=== PATIENT | female | born 1945 ===

== ENCOUNTER 2017-02-04 10:46 | Inpatient (IN) | payer OTHER, MEDICARE ==
[2017-02-04] VITALS (12 sets, daily range): BP systolic 129–231; BP diastolic 66–120; PULSE 85–129; RESP 32–40; TEMP 98.2–99.3; O2SAT 80–100
[~2017-02-04] VITALS: Ht 147.3 cm; Wt 55.1 kg
[2017-02-04] MEDS ORDERED: SODIUM CHLORIDE 0.9% FLUSH 10 ML FLUSH IVF PRN (11:00)
[2017-02-04] MEDS ORDERED: FUROSEMIDE 40 MG/4 ML VIAL IV PUSH ONE (11:00)
--- NOTE | 2017-02-04 11:08 | PD ---
HPI Chief Complaint: Respiratory Distress Time Seen by Provider: 10:52 Travel History International Travel<30 days: No Contact w/Intl Traveler<30days: No Traveled to known affect area: No History of Present Illness HPI 71-year-old female longterm patient with multiple medical issues, presents to the ER today brought in by EMS after staff found her slumped over, with cyanosis of the limbs, in respiratory distress. EMS had placed nonrebreather on her and was only able to get her os nation into the 80s, states that they have noted leg edema, and have brought her in for further evaluation. Patient currently is in respiratory distress, states she feels a little bit better, but is not able to give me much further history. Modifying Factors: None Associated Signs & Symptoms: Hypoxia, respiratory distress, disorientation Risk Factors: Elderly, longterm patient PFSH Past Medical History ?: Not Social History Tobacco Use: No Allergies-Medications (Allergen,Severity, Reaction): Coded Allergies: Penicillins (Verified Allergy, Unknown, 02/04/17) Review of Systems ROS Limitations: Altered Mental Status Physical Exam Narrative GENERAL: Well-developed elderly white female patient currently and moderate respiratory distress, awake, lethargic, disoriented. SKIN: Focused skin assessment warm/dry. HEAD: Atraumatic. Normocephalic. EYES: Pupils equal and round. No scleral icterus. No injection or drainage. ENT: No nasal bleeding or discharge. Mucous membranes pink and moist. NECK: Trachea midline. No JVD. CARDIOVASCULAR: Regular rate and rhythm. No murmur appreciated. RESPIRATORY: Notable accessory muscle use. Coarse at the bases. Breath sounds equal bilaterally. GASTROINTESTINAL: Abdomen soft, non-tender, nondistended. Hepatic and splenic margins not palpable. MUSCULOSKELETAL: No obvious deformities. No clubbing. No cyanosis. Bilateral pitting edema the legs. NEUROLOGICAL: Awake and lethargic. No obvious cranial nerve deficits. Motor grossly within normal limits. Labored speech. PSYCHIATRIC: Lethargic, disoriented; insight and judgment poor. Data Data Last Documented VS Vital Signs Date Time Temp Pulse Resp B/P (MAP) Pulse Ox O2 Delivery O2 Flow Rate FiO2 02/04/17 11:53 107 36 176/96 (122) 95 BiPAP 02/04/17 10:55 100 Orders Orders Complete Blood Count With Diff (02/04/17 10:52) Comprehensive Metabolic Panel (02/04/17 10:52) B-Type Natriuretic Peptide (02/04/17 10:52) Act Partial Throm Time (Ptt) (02/04/17 10:52) Prothrombin Time / Inr (Pt) (02/04/17 10:52) Magnesium (Mg) (02/04/17 10:52) Ckmb (Isoenzyme) Profile (02/04/17 10:52) Troponin I (02/04/17 10:52) Urinalysis - C+S If Indicated (02/04/17 10:52) Blood Culture (02/04/17 10:52) Iv Access Insert/Monitor (02/04/17 10:52) Electrocardiogram (02/04/17 10:52) Ecg Monitoring (02/04/17 10:52) Oximetry (02/04/17 10:52) Oxygen Administration (02/04/17 10:52) Chest, Single Ap (02/04/17 10:52) Cath For Specimen (02/04/17 10:52) Sodium Chloride 0.9% Flush (Ns Flush) (02/04/17 11:00) Resp Bipap / Cpap Non Invas Vt (02/04/17 10:52) Furosemide Inj (Lasix Inj) (02/04/17 11:00) Arterial Blood Gas (Abg) (02/04/17 11:09) Nitroglycerin 2% Oint (Nitroglycerin 2% (02/04/17 11:45) Admit Order (Ed Use Only) (02/04/17 12:56) Sodium Chlor 0.9% 1000 Ml Inj (Ns 1000 M (02/04/17 13:00) Lactic Acid Sepsis Protocol (02/04/17 12:59) Cefepime Inj (Maxipime Inj) (02/04/17 12:59) Azithromycin Inj (Zithromax Inj) (02/04/17 12:59) Labs Laboratory Tests Test 02/04/17 11:35 02/04/17 12:40 White Blood Count 5.4 TH/MM3 Red Blood Count 3.62 MIL/MM3 Hemoglobin 10.8 GM/DL Hematocrit 30.7 % Mean Corpuscular Volume 84.8 FL Mean Corpuscular Hemoglobin 29.8 PG Mean Corpuscular Hemoglobin Concent 35.2 % Red Cell Distribution Width 15.5 % Platelet Count 248 TH/MM3 Mean Platelet Volume 6.5 FL Neutrophils (%) (Auto) 91.3 % Lymphocytes (%) (Auto) 3.3 % Monocytes (%) (Auto) 5.1 % Eosinophils (%) (Auto) 0.1 % Basophils (%) (Auto) 0.2 % Neutrophils # (Auto) 5.0 TH/MM3 Lymphocytes # (Auto) 0.2 TH/MM3 Monocytes # (Auto) 0.3 TH/MM3 Eosinophils # (Auto) 0.0 TH/MM3 Basophils # (Auto) 0.0 TH/MM3 CBC Comment DIFF FINAL Differential Comment Prothrombin Time 12.0 SEC Prothromb Time International Ratio 1.2 RATIO Activated Partial Thromboplast Time 28.8 SEC Blood Gas Puncture Site RT RADIAL Blood Gas Patient Temperature 37.0 Blood Gas HCO3 28 mmol/L Blood Gas Base Excess 3.0 mmol/L Blood Gas Oxygen Saturation 95 % Arterial Blood pH 7.39 Arterial Blood Partial Pressure CO2 46 mmHg Arterial Blood Partial Pressure O2 90 mmHG Arterial Blood Oxygen Content 15.0 Vol % Arterial Blood Carboxyhemoglobin 1.4 % Arterial Blood Methemoglobin 0.3 % Blood Gas Hemoglobin 11.2 G/DL Oxygen Delivery Device BIPAP Blood Gas Ventilator Setting EPAP5/IPAP10 Blood Gas Inspired Oxygen 100 % Blood Urea Nitrogen 12 MG/DL Creatinine 0.54 MG/DL Random Glucose 182 MG/DL Total Protein 6.7 GM/DL Albumin 3.0 GM/DL Calcium Level 9.0 MG/DL Magnesium Level 1.4 MG/DL Alkaline Phosphatase 88 U/L Aspartate Amino Transf (AST/SGOT) 17 U/L Alanine Aminotransferase (ALT/SGPT) 17 U/L Total Bilirubin 1.6 MG/DL Sodium Level 118 MEQ/L Potassium Level 3.8 MEQ/L Chloride Level 81 MEQ/L Carbon Dioxide Level 25.2 MEQ/L Anion Gap 12 MEQ/L Estimat Glomerular Filtration Rate 111 ML/MIN Total Creatine Kinase 71 U/L Troponin I LESS THAN 0.02 NG/ML B-Type Natriuretic Peptide 82 PG/ML MDM Medical Decision Making Medical Screen Exam Complete: Yes Emergency Medical Condition: Yes Medical Record Reviewed: Yes Interpretation(s) EKG shows sinus tachycardia rate 114 bpm with no signs of acute ST-T changes. Laboratory Tests Test 02/04/17 11:35 02/04/17 12:40 Red Blood Count 3.62 MIL/MM3 (4.00-5.30) Hemoglobin 10.8 GM/DL (11.6-15.3) Hematocrit 30.7 % (35.0-46.0) Mean Platelet Volume 6.5 FL (7.0-11.0) Neutrophils (%) (Auto) 91.3 % (16.0-70.0) Lymphocytes (%) (Auto) 3.3 % (9.0-44.0) Lymphocytes # (Auto) 0.2 TH/MM3 (1.0-4.8) Prothrombin Time 12.0 SEC (9.8-11.6) Blood Gas HCO3 28 mmol/L (22-26) Blood Gas Base Excess 3.0 mmol/L (-2-2) Arterial Blood Partial Pressure CO2 46 mmHg (38-42) Blood Gas Hemoglobin 11.2 G/DL (12.0-16.0) Random Glucose 182 MG/DL (74-106) Albumin 3.0 GM/DL (3.4-5.0) Magnesium Level 1.4 MG/DL (1.5-2.5) Total Bilirubin 1.6 MG/DL (0.2-1.0) Sodium Level 118 MEQ/L (136-145) Chloride Level 81 MEQ/L (98-107) Troponin I LESS THAN 0.02 NG/ML Last 24 hours Impressions Chest X-Ray 02/04/17 1052 Signed Impressions: Service Date/Time: Saturday, February 04, 2017 11:14 - CONCLUSION: 1. Airspace infiltrate in the medial right base characteristic of a pneumonic process. This probably explains current clinical symptoms. 2. Some blunting of the left costophrenic angle may represent a small effusion. Left lung is otherwise clear. Nura Cook MD Differential Diagnosis Hypoxia, disoriented, respiratory distress: CHF exacerbation versus pneumonia versus COPD exacerbation versus dehydration versus metabolic issues versus sepsis Narrative Course Initial exam is concerning for either CHF exacerbation hypertensive urgency was fairly elevated blood pressures, leg swelling, and coarse breath sounds at the bases. IV Lasix and nitroglycerin was given initially. She was put on BiPAP. On reevaluation half an hour later, she is looking improved, satting in the high 90s, able to nod to answer questions. Her daughter who is power of state attorney is at bedside. I have talked her extensively regarding initial findings and the need for admission for further evaluation. Additional lab work returns showing BNP which is normal, sodium which is fairly low at 118. Chest x-ray is also showing a right sided pneumonia. IV antibiotic's were initiated after cultures were drawn. Case was then discussed with dial refinisher who agrees to admit the patient to ICU for further treatment. We have agreed that the patient will need a slow rate of normal saline at this time , has history of CHF as well. He agrees that he will see the patient to evaluate for further treatment. Aggregate critical care time was 35 minutes. Time to perform other separately billable procedures was not included in the critical care time. My time did not include minutes spent treating any other patients simultaneously or on activities that did not directly contribute to the patient's treatment. The services I provided to this patient were to treat and/or prevent clinically significant deterioration that could result in: Worsening sepsis, septic shock, respiratory failure, I provided critical care services requiring my management, as noted below: Chart data review, documentation time, medication orders and management, vital sign assessments/reviewing monitor data, ordering and reviewing lab tests, ordering and interpreting/reviewing x-rays and diagnostic studies, care of the patient and discussion of the patient with the admitting physicians. Diagnosis Primary Impression: Hypoxia Additional Impressions: Pneumonia Sepsis Hyponatremia Admitting Information Admitting Physician Requests: Suzie Dao MD Feb 04, 2017 11:08
[2017-02-04] MEDS ORDERED: NITROGLYCERIN 2% OINT 1 GM PACKET TOPICAL ONE (11:45)
--- NOTE | 2017-02-04 11:55 | RADRPT ---
EXAM DATE/TIME: 02/04/2017 11:14 [facility] COMPARISON: No previous studies available for comparison. INDICATIONS : Short of breath. MEDICAL HISTORY : Hypertension. SURGICAL HISTORY : None. ENCOUNTER: Initial ACUITY: 1 day PAIN SCORE: 0/10 LOCATION: Bilateral chest FINDINGS: A single view of the chest demonstrates airspace infiltrates in the right medial base. Possible small left-sided effusion but the left lung is otherwise clear. Heart size is normal. S-shaped scoliosis o f the thoracolumbar spine. Osseous structures are otherwise intact CONCLUSION: 1. Airspace infiltrate in the medial right base characteristic of a pneumonic process. This probably explains current clinical symptoms. 2. Some blunting of the left costophrenic angle may represent a small effusion. Left lung is otherwis e clear. Nura Cook MD on February 04, 2017 at 11:52 Board Certified Radiologist. This report was verified electronically.
[2017-02-04 12:13] LABS: BASOPHIL % 0.2 % (0.0-2.0); EOSINOPHIL % 0.1 % (0.0-4.0); HEMATOCRIT 30.7 % (35.0-46.0); HEMOGLOBIN 10.8 GM/DL (11.6-15.3); LYMPH % 3.3 % (9.0-44.0); LYMPHOCYTE # 0.2 TH/MM3 (1.0-4.8); MEAN CELL VOLUME 84.8 FL (80.0-100.0); MEAN CORPUSCULAR HEMOGLOBIN 29.8 PG (27.0-34.0); MEAN CORPUSCULAR HGB CONC 35.2 % (32.0-36.0); MEAN PLATELET VOLUME 6.5 FL (7.0-11.0); MONO % 5.1 % (0.0-8.0); MONOCYTE # 0.3 TH/MM3 (0-0.9); NEUT % 91.3 % (16.0-70.0); PLATELET COUNT 248 TH/MM3 (150-450); RED BLOOD COUNT 3.62 MIL/MM3 (4.00-5.30); RED CELL DISTRIBUTION WIDTH 15.5 % (11.6-17.2); WHITE BLOOD COUNT 5.4 TH/MM3 (4.0-11.0)
[2017-02-04 12:23] LABS: INTERNATIONAL NORMALIZED RATIO 1.2 RATIO
[2017-02-04 12:37] LABS: ALT (GPT) 17 U/L (10-53); AST (GOT) 17 U/L (15-37); BICARBONATE 25.2 MEQ/L (21.0-32.0); CHLORIDE 81 MEQ/L (98-107); CREATININE 0.54 MG/DL (0.50-1.00); GLOMERULAR FILTRATION RATE 111 ML/MIN (>89); GLUCOSE,RANDOM 182 MG/DL (74-106); MAGNESIUM 1.4 MG/DL (1.5-2.5); SODIUM (NA) 118 MEQ/L (136-145)
[2017-02-04 12:40] LABS: BLOOD UREA NITROGEN 12 MG/DL (7-18)
[2017-02-04 12:42] LABS: ALKALINE PHOSPHATASE 88 U/L (45-117); TOTAL BILIRUBIN ADULT 1.6 MG/DL (0.2-1.0); TOTAL PROTEIN 6.7 GM/DL (6.4-8.2); TROPONIN I LESS THAN 0.02 NG/ML (0.02-0.05)
[2017-02-04] MEDS ORDERED: AZITHROMYCIN INJ 500 MG in SODIUM CHLOR 0.9% 250 ML INJ 250 ML IV STA (12:59)
[2017-02-04] MEDS ORDERED: CEFEPIME INJ 2,000 MG in SODIUM CHLORIDE 0.9% INJ 100 ML IV STA (12:59)
[2017-02-04] MEDS ORDERED: SODIUM CHLOR 0.9% 1000 ML INJ 1,000 ML IV SCH (13:00)
[2017-02-04] MEDS ORDERED: SODIUM CHLORIDE 0.9% FLUSH 10 ML FLUSH IV FLUSH PRN (13:15)
[2017-02-04] MEDS ORDERED: MISCELLANEOUS NURSING INFORMATION XX SCH (13:15)
[2017-02-04] MEDS ORDERED: CHLORHEXIDINE GLUCONATE 2 % 1 PACK (2 CLOTHS) TOP PRN (13:15)
[2017-02-04 13:22] LABS: BILIRUBIN, URINE NEG (NEG); BLOOD, URINE NEG (NEG); GLUCOSE,URINE NEG (NEG); HYALINE CAST, URINE 7 /lpf (RARE); KETONE, URINE NEG (NEG); MUCUS URINE FEW /lpf (OCC); NITRITE,URINE NEG (NEG); SQUAMOUS EPITHELIAL CELL URINE 1 /hpf (0-5); URINE COLOR LIGHT-YELLOW (YELLW/STRAW); URINE LEUKOCYTE ESTERASE NEG (NEG)
[2017-02-04] MEDS ORDERED: LABETALOL HCL 100 MG/20 ML VIAL IV PUSH PRN (13:30)
[2017-02-04] MEDS ORDERED: LABETALOL HCL 100 MG/20 ML VIAL IV PUSH ONE (13:45)
[2017-02-04] MEDS: SODIUM CHLOR 0.9% 1000 ML INJ 1,000 ML IV SCH (13:51)
--- NOTE | 2017-02-04 16:19 | PD.CONS ---
Consult Service Palliative Care Consult Requested By Dr. Nieto Primary Care Physician Ale Glez (In [place]) [phone] . Reason for Consultation a. To assist with evaluation and management of symptoms including:shortness of breath, debility b. To assist medical decision maker(s) with: better understanding of current medical conditions; weighing benefits/burdens of medical treatment options; making medical treatment decisions. HPI History of Present Illness Mrs Knapp is a 71 years old female with a past medical history of colon cancer, esophageal strictures, pneumonia and anxiety. Patient was diagnosed with colon cancer in 2003 and was treated with colon resection and chemotherapy. Patient was hospitalized in [place] in November of this year for for 2 weeks and was treated for aspiration pneumonia and hyponatremia. Patient continued to have dysphagia whilst hospitalized and was transferred to [facility] in [facility] where they had pediatric equipment for esophageal dilatation. She was admitted in the hospital for 2 weeks, underwent esophageal dilatation and was discharged on pureed diet and regular fluids. Patient then travelled to [place] with her granddaughter and was home for only 3 weeks before presenting to [facility] on 01/17/17 complaining of shortness of breath, cough, mucopurulent expectoration and generalized weakness. Patient was treated for aspiration pneumonia with Rocephin and clindamycin. During that hospitalization she also had significant hyponatremia and hypokalemia requiring electrolyte replacement. CT chest done at [facility] revealed a 7 mm hypodense lesion in the right lobe of thyroid. Thyroid ultrasound 01/19/17 revealed solid right lobe nodule - tissue diagnosis was recommended. Per her healthcare surrogate patient also had diarrhea while hospitalized from antibiotics. Patient was discharged home and the following day was transported by her family to [facility] for unresolved shortness of breath. She was admitted at [facility] for 3 days where she had electrolyte replacement. Patient was discharged home and only stayed home for 2 days and was taken back to [facility] because of shortness of breath ans weakness. Patient was admitted for 2 more days and was discharged to [facility] [place] for rehabilitation where she has been for 3 days prior to this admission. Patient presented via EMS to [facility] today after she was found slumped over, with cyanosis of limbs and in respiratory distress at the [facility]. Patient`s O2 saturation were in the 60s and only improved to the 80s after she was placed on a nonrebreather. ER course: -Vital signs-temperature 98.2 degrees F, heart rate 107, BP 231/120, O2 saturation 80% -Patient placed on BiPAP -EKG revealed sinus tachycardia rate [address]-T changes -Laboratory workup revealed WBC 5.4, hemoglobin 10.8, hematocrit 30.7, platelet count 248, sodium 118, potassium 3.8, BUN/creatinine 12/0.54, lactic acid 1.8, troponin less than 0.02, BNP 82, total protein 6.7, albumin 3.6 -Chest x-ray revealed a sessile in the medial right base characteristic of a pneumonic process. Blunting of left costophrenic angle may represent a small effusion. -ABG on BiPAP(EPAP5/IPAP10)-pH 7.39, PCO2 46, PO2 90, HCO3 28, O2 saturation 95 Patient seen and examined in the ER. Patient's granddaughter Rodrigo Cotton who is her healthcare surrogate present at bedside. Obtained past medical history and psychosocial history. Patient is lethargic, oriented to self, place and situation. Patient does not seem to have insight and a clear understanding of her clinical condition. Addressed CODE STATUS, discussed risks , benefits and limitations of CPR given ongoing multiple comorbidities and recent multiple hospitalizations. Patient as well as her healthcare surrogate indicated that they wanted patient to be a full code and aggressive treatment inclusive of resuscitation and intubation if needed. HCS stated that she has discussed this with patient before and she knows that patient wants everything done to assist patient with getting better medically. Patient and her healthcare surrogate are hoping that patient will medically improve, go to rehabilitation and then traveled back to [place] way she will be close to her mother and her sister. - Function/Cognitive Trajectory Prior to multiple hospitalizations, which is November patient was independent, lived alone and he'll take care of her elderly mother. Since November patient has had multiple hospitalizations, has had increased weakness, decreased appetite with dysphagia problems and has lost weight approximately 20 pounds in two months. . Review of Systems ROS Limitations: Clinical Condition Constitutional: COMPLAINS OF: Fatigue, Weight loss, Change in appetite, Generalized weakness Eyes: DENIES: Eye inflammation Ears, nose, mouth, throat: DENIES: Hearing loss, Nasal discharge Respiratory: COMPLAINS OF: Cough, Sputum production, Shortness of breath, DENIES: Hemoptysis Cardiovascular: COMPLAINS OF: Dyspnea on Exertion, Lower Extremity Edema, DENIES: Chest pain Gastrointestinal: COMPLAINS OF: Diarrhea, Nausea, Difficulty Swallowing, DENIES : Bloody stools, Vomiting Genitourinary: DENIES: Urinary incontinence Hematologic/Lymphatics: COMPLAINS OF: Bruising Psychiatric: COMPLAINS OF: Anxiety, DENIES: Confusion Other ROS: ROS partly obtained from patient and most of it from her granddaughter who is her HCS. . Past Family Social History Coded Allergies: Penicillins (Verified Allergy, Unknown, 02/04/17) Past Medical History Colon Cancer in 2004 status post chemotherapy Anxiety Pneumonia Hyponatremia . Past Surgical History Partial colon resection for colon cancer-14 years ago Esophageal dilatation Left hip replacement in 2013 . Current Medications Medications (Trade) Dose Ordered Sig/Celine Route Start Time Stop Time Status Last Admin Sodium Chloride 1,000 ml @ 125 mls/hr Q8H IV 02/04/17 13:06 02/04/17 13:51 (NS Flush) 2 ml UNSCH PRN IV FLUSH 02/04/17 13:15 (NS Flush) 2 ml BID IV FLUSH 02/04/17 21:00 (Duoneb Neb) 1 ampule Q6HR NEB NEB 02/04/17 16:00 (Duoneb Neb) 1 ampule Q4HR NEB PRN INH 02/04/17 14:00 (Peridex 0.12% Liq) 15 ml BID@08,20 MT 02/04/17 20:00 (Pepcid Inj) 20 mg Q12HR IV PUSH 02/04/17 21:00 Miscellaneous Information 1 Q361D XX 02/04/17 13:15 (Chlorhexidine 2% Cloth) 3 pack Taper DAILY@04 TOP 02/05/17 04:00 02/01/18 03:59 (Chlorhexidine 2% Cloth) 3 pack UNSCH PRN TOP 02/04/17 13:15 (NovoLOG SUPPLEMENTAL SCALE) 1 Q6HR SQ 02/04/17 18:00 (Trandate Inj) 10 mg Q2HR PRN IV PUSH 02/04/17 13:30 Family History Father from implications of an aneurysm Mother is still leaving it age 95 and is healthy Sister is still living, has a ray immune disease-she has a tracheostomy . Substance Use Tobacco: Never used tobacco Alcohol: Never consumed alcohol Prescription med abuse: Denies Illicits: Denies . Psychosocial History Patient was born and raised in [place]. Patient still lives in [place] but came to [place] with her granddaughter to visit in late November, after being hospitalized in [place] and [place] for approximately 4 weeks. Patient was twice and once and her last a few years ago . She has 1 adult daughter, one grandchild and 2 great grandchildren. Patients is level of education is high school. 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 Patient has been living alone independently in [place] and helps take care of her elderly mother was 95 years old. Spiritual/Cultural Factors . Living Will: Never completed Health Care Surrogate: Copy in medical record Date completed: December 19, 2016 . Health Care Surrogate(s): Granddaughter-[facility]- Connie Stratton [facility]- [phone] [facility]- Freddy Weathers [facility] [phone] . Today's verbally stated goals: Patient wants to get better" back to [place] to be closer to family. Patient wants aggressive treatment including resuscitation and intubation. Granddaughter will use a health care surrogate supportive. . Family/friends goals: Patient's granddaughter wants aggressive treatment is hopeful that patient will go to rehabilitation and get strong enough to go back to [place]. . Ethical and Legal Issues None identified at this time . Physical Exam Vital Signs Date Time Temp Pulse Resp B/P (MAP) Pulse Ox O2 Delivery O2 Flow Rate FiO2 02/04/17 14:14 98.2 107 32 129/79 (96) 99 BiPAP 02/04/17 11:53 107 36 176/96 (122) 95 BiPAP 02/04/17 11:08 115 38 231/120 (157) 93 BiPAP 02/04/17 11:07 93 BiPAP 02/04/17 10:55 39 89 BiPAP 100 02/04/17 10:50 88 100 02/04/17 10:49 106 34 80 02/04/17 02/05/17 19:00 07:00 Intake Total 100 ml Balance 100 ml Intake IV Total 100 ml Exam CONSTITUTIONAL/GENERAL: This is a cachectic, ill-looking elderly patient, appears older than stated age in mild respiratory distress TUBES/LINES/DRAINS: BiPAP, Cabrera catheter, PIV SKIN: No jaundice. Ecchymoses on upper extremities-B2 skin tear to left elbow. Skin temperature appropriate. Not diaphoretic. HEAD: Atraumatic. Normocephalic. EYES: Pupils equal and round and reactive. Extraocular motions intact. No scleral icterus. No injection or drainage. Fundi not examined. ENT: Hearing grossly normal. Nose without bleeding or purulent drainage. NECK: Trachea midline. Supple, nontender. CARDIOVASCULAR: Regular rate and rhythm without murmurs, gallops, or rubs. ST 115 . No JVD. Peripheral pulses symmetric. RESPIRATORY/CHEST: Symmetric, mildly labored respirations. Rhonchi to auscultation. Diminished Breath sounds equal bilaterally. No wheezes. GASTROINTESTINAL: Abdomen soft, non-tender, nondistended. Bowel sounds present. GENITOURINARY: Without palpable bladder distension. Cabrera catheter in place. MUSCULOSKELETAL: Extremities without clubbing. No joint tenderness or effusion noted. No calf tenderness. No mottling. Pitting edema to bilateral lower extremities NEUROLOGICAL: Awake, lethargic and oriented to self and situation. Motor and sensory grossly within normal limits. Follows commands.Moves all extremities. PSYCHIATRIC: Unable to completely assess, patient on BiPAP . Diagnostic Tests Laboratory Laboratory Tests Test 02/04/17 11:35 02/04/17 12:40 02/04/17 13:00 White Blood Count 5.4 TH/MM3 (4.0-11.0) Red Blood Count 3.62 MIL/MM3 (4.00-5.30) Hemoglobin 10.8 GM/DL (11.6-15.3) Hematocrit 30.7 % (35.0-46.0) Mean Corpuscular Volume 84.8 FL (80.0-100.0) Mean Corpuscular Hemoglobin 29.8 PG (27.0-34.0) Mean Corpuscular Hemoglobin Concent 35.2 % (32.0-36.0) Red Cell Distribution Width 15.5 % (11.6-17.2) Platelet Count 248 TH/MM3 (150-450) Mean Platelet Volume 6.5 FL (7.0-11.0) Neutrophils (%) (Auto) 91.3 % (16.0-70.0) Lymphocytes (%) (Auto) 3.3 % (9.0-44.0) Monocytes (%) (Auto) 5.1 % (0.0-8.0) Eosinophils (%) (Auto) 0.1 % (0.0-4.0) Basophils (%) (Auto) 0.2 % (0.0-2.0) Neutrophils # (Auto) 5.0 TH/MM3 (1.8-7.7) Lymphocytes # (Auto) 0.2 TH/MM3 (1.0-4.8) Monocytes # (Auto) 0.3 TH/MM3 (0-0.9) Eosinophils # (Auto) 0.0 TH/MM3 (0-0.4) Basophils # (Auto) 0.0 TH/MM3 (0-0.2) CBC Comment DIFF FINAL Differential Comment Prothrombin Time 12.0 SEC (9.8-11.6) Prothromb Time International Ratio 1.2 RATIO Activated Partial Thromboplast Time 28.8 SEC (24.3-30.1) Blood Gas Puncture Site RT RADIAL Blood Gas Patient Temperature 37.0 Blood Gas HCO3 28 mmol/L (22-26) Blood Gas Base Excess 3.0 mmol/L (-2-2) Blood Gas Oxygen Saturation 95 % (90-100) Arterial Blood pH 7.39 (7.380-7.420) Arterial Blood Partial Pressure CO2 46 mmHg (38-42) Arterial Blood Partial Pressure O2 90 mmHG (61-120) Arterial Blood Oxygen Content 15.0 Vol % (12.0-20.0) Arterial Blood Carboxyhemoglobin 1.4 % (0-4) Arterial Blood Methemoglobin 0.3 % (0-2) Blood Gas Hemoglobin 11.2 G/DL (12.0-16.0) Oxygen Delivery Device BIPAP Blood Gas Ventilator Setting EPAP5/IPAP10 Blood Gas Inspired Oxygen 100 % Blood Urea Nitrogen 12 MG/DL (7-18) Creatinine 0.54 MG/DL (0.50-1.00) Random Glucose 182 MG/DL (74-106) Total Protein 6.7 GM/DL (6.4-8.2) Albumin 3.0 GM/DL (3.4-5.0) Calcium Level 9.0 MG/DL (8.5-10.1) Magnesium Level 1.4 MG/DL (1.5-2.5) Alkaline Phosphatase 88 U/L (45-117) Aspartate Amino Transf (AST/SGOT) 17 U/L (15-37) Alanine Aminotransferase (ALT/SGPT) 17 U/L (10-53) Total Bilirubin 1.6 MG/DL (0.2-1.0) Sodium Level 118 MEQ/L (136-145) Potassium Level 3.8 MEQ/L (3.5-5.1) Chloride Level 81 MEQ/L (98-107) Carbon Dioxide Level 25.2 MEQ/L (21.0-32.0) Anion Gap 12 MEQ/L (5-15) Estimat Glomerular Filtration Rate 111 ML/MIN (>89) Total Creatine Kinase 71 U/L (26-192) Troponin I LESS THAN 0.02 NG/ML B-Type Natriuretic Peptide 82 PG/ML (0-100) Urine Color LIGHT-YELLOW (YELLW/STRAW) Urine Turbidity CLEAR (CLEAR) Urine pH 5.0 (5.0-8.5) Urine Specific Andrews 1.006 (1.002-1.035) Urine Protein NEG mg/dL (NEG-TRACE) Urine Glucose (UA) NEG mg/dL (NEG) Urine Ketones NEG mg/dL (NEG) Urine Occult Blood NEG (NEG) Urine Nitrite NEG (NEG) Urine Bilirubin NEG (NEG) Urine Urobilinogen LESS THAN 2.0 MG/DL (LESS Urine Leukocyte Esterase NEG (NEG) Urine RBC 1 /hpf (0-3) Urine Squamous Epithelial Cells 1 /hpf (0-5) Urine Hyaline Casts 7 /lpf (RARE) Urine Mucus FEW /lpf (OCC) Microscopic Urinalysis Comment CULT NOT INDICATED Lactic Acid Level 1.8 mmol/L (0.4-2.0) Result Diagram: 02/04/17 1135 02/04/17 1135 Microbiology Microbiology Date/Time Source Procedure Growth Status 02/04/17 11:35 Blood Peripheral Aerobic Blood Culture Pending Received 02/04/17 11:35 Blood Peripheral Anaerobic Blood Culture Pending Received 02/04/17 11:20 Blood Peripheral Aerobic Blood Culture Pending Received 02/04/17 11:20 Blood Peripheral Anaerobic Blood Culture Pending Received Imaging Last Impressions Chest X-Ray 02/04/17 1052 Signed Impressions: Service Date/Time: Saturday, February 04, 2017 11:14 - CONCLUSION: 1. Airspace infiltrate in the medial right base characteristic of a pneumonic process. This probably explains current clinical symptoms. 2. Some blunting of the left costophrenic angle may represent a small effusion. Left lung is otherwise clear. Nura Cook MD Patient/Family Conference Present at Family Conference: Spoke at length with the patient's granddaughter who is the health care surrogate . Family Conference Location: Bedside Issues Discussed: * Palliative care role, purpose, approach * Additional medical, psychosocial, and spiritual history * Patients general health, functional status, and cognitive changes in the months leading up to the current hospitalization * Patient/family understanding of the current medical problems * Patient/family understanding of prognosis * Patients goals of care as best understood from advance directives and/or conversations and/or values * Current medical treatment options and benefits/burdens of those options * Likely scenarios comparing ongoing aggressive care with a transition to comfort measures only * Questions answered to the best of my ability * Palliative care contact information provided Assessment and Plan Disease Oriented Problem List: (1) Sepsis (2) Hyponatremia (3) Pneumonia (4) Hypoxia Symptom Scale: (1) Shortness of breath Comment: Multifactorial. Patient has had multiple hospitalizations for shortness of breath/pneumonia. Currently on BiPAP. Mild respiratory distress noted. O2 saturation high 90s. . (2) Decreased oral intake Comment: History of dysphagia status post dilatation. Patient was currently on pured diet in retirement. His lost approximately 25 pounds in 2 months. . (3) Debility Comment: Progressive. Patient has had prolonged hospitalization in 4 different facilities since November 2016. Since November she has been hospitalized approximately 5 times. Patient was discharged recently into a [facility] facility. Patient has also lost weight significantly. Has not been able to participate in physical therapy due to her illness. Patient remains at high risk for deterioration if she continues to have shortness of breath, which will limit her participation in physical therapy. Patient may benefit from physical therapy. . Pertinent Non-Medical Issues Psychosocial: Spiritual: Legal: Ethical issues impacting care: Important Contacts Granddaughter-[facility]- Connie Cotton- [phone] [facility]- Freddy Cotton [phone] . Prognosis Mrs Knapp is a 71 years old female with a past medical history of colon cancer, esophageal strictures, pneumonia and anxiety. Patient has had multiple hospitalizations for persistent pneumonia, hyponatremia and dysphagia. She was recently discharged from [facility] to a [facility] facility. Patient presented via EMS to [facility] on 02/04/17 after she was found slumped over, with cyanosis of limbs and [facility]. Patient`s O2 saturation were in the 80s. Given ongoing comorbidities and recent multiple hospitalizations, patient remains at high risk for complications, deterioration in decline. . Code Status: Full Code Plan PLAN: Legal decision maker: Patient does not appear to have clear understanding and insight of her clinical condition. Recommending joint decision making with her granddaughter Connie Cotton. Her alternate HCS- Freddy Cotton. Goals: Aggressive Patient's granddaughter Rodrigo Cotton who is her healthcare surrogate present at bedside. Obtained past medical history and psychosocial history. Patient is lethargic, oriented to self, place and situation. Patient does not seem to have insight and a clear understanding of her clinical condition. Addressed CODE STATUS, discussed risks, benefits and limitations of CPR given ongoing multiple comorbidities and recent multiple hospitalizations. Patient as well as her healthcare surrogate indicated that they wanted patient to be a full code and aggressive treatment inclusive of resuscitation and intubation if needed. [facility] stated that she has discussed this with patient before and she knows that patient wants everything done to assist patient with getting better medically. Patient and her healthcare surrogate are hoping that patient will medically improve, go to rehabilitation and then traveled back to [place] way she will be close to her mother and her sister. CODE STATUS: Full code SYMPTOMS: * Shortness of breath:Multifactorial. Patient has had multiple hospitalizations for shortness of breath/pneumonia. Chest x-ray revealed a space infiltrate in right base, with possible small effusion. Currently on BiPAP. Mild respiratory distress noted. O2 saturation high 90s. Received antibiotics in the ER. Patient is on DuoNeb nebs * Decreased oral intake:History of dysphagia status post dilatation. Patient was currently on pured diet in retirement. His lost approximately 25 pounds in 2 months. Recommending swallowing evaluation by speech therapy . * Debility:Progressive. Patient has had prolonged hospitalization in 4 different facilities since November 2016. Since November she has been hospitalized approximately 5 times. Patient was discharged recently into a [facility] facility. Patient has also lost weight significantly. Has not been able to participate in physical therapy due to her illness. Patient remains at high risk for deterioration if she continues to have shortness of breath, which will limit her participation in physical therapy. Patient may benefit from physical therapy. Palliative care will continue to follow the patient during hospital course as condition evolves, to assist patient/decision-maker with understanding of their medical conditions, weighing benefits/burdens of treatment options, for clarification of goals of treatment. Additionally will assist with any symptoms of palliative concern. . Thank you for the opportunity to participate in the care of Ms. Knapp. Julianne More Feb 04, 2017 16:19
[2017-02-04] MEDS: RESP: ALBUTEROL 2.5 MG/IPRATROPIUM 0.5 MG NEB (SCH) NEB ×2 (16:53→22:52)
[2017-02-04] MEDS: INSULIN ASPART SUPPLEMENTAL SCALE SQ SCH (18:00)
--- NOTE | 2017-02-04 18:11 | RADRPT ---
EXAM DATE/TIME: 02/04/2017 17:50 [facility] COMPARISON: No previous studies available for comparison. INDICATIONS : Encephalopathy. RADIATION DOSE: 56.35 CTDIvol (mGy) MEDICAL HISTORY : Carcinoma, colon. SURGICAL HISTORY : None. ENCOUNTER: Initial ACUITY: 1 day PAIN SCALE: 0/10 LOCATION: cranial TECHNIQUE: Multiple contiguous axial images were obtained of the head. Using automated exposure control and adj ustment of the mA and/or kV according to patient size, radiation dose was kept as low as reasonably a chievable to obtain optimal diagnostic quality images. DICOM format image data is available electro nically for review and comparison. FINDINGS: CEREBRUM: The ventricles are normal for age. No evidence of midline shift, mass lesion, hemorrhage or acute in farction. No extra-axial fluid collections are seen. POSTERIOR FOSSA: The cerebellum and brainstem are intact. The 4th ventricle is midline. The cerebellopontine angle i s unremarkable. EXTRACRANIAL: The visualized portion of the orbits is intact. Tiny fluid level within right maxillary sinus. SKULL: The calvaria is intact. No evidence of skull fracture. CONCLUSION: 1. No acute intracranial abnormality. 2. Tiny fluid level within the right maxillary sinus. Julian Mcmahan MD on February 04, 2017 at 18:07 Board Certified Radiologist. This report was verified electronically.
--- NOTE | 2017-02-04 18:23 | RADRPT ---
EXAM DATE/TIME: 02/04/2017 17:54 [facility] COMPARISON: No previous studies available for comparison. INDICATIONS : Shortness of breath. IV CONTRAST: 60 cc Omnipaque 350 (iohexol) IV RADIATION DOSE: 7.12 CTDIvol (mGy) MEDICAL HISTORY : Carcinoma, colon. SURGICAL HISTORY : None. ENCOUNTER: Initial ACUITY: 1 day PAIN SCALE: 5/10 LOCATION: Bilateral cranial TECHNIQUE: Volumetric scanning of the chest was performed using a pulmonary embolism protocol MIP images were re constructed. Using automated exposure control and adjustment of the mA and/or kV according to patien t size, radiation dose was kept as low as reasonably achievable to obtain optimal diagnostic quality images. DICOM format image data is available electronically for review and comparison. Follow-up recommendations for detected pulmonary nodules are based at a minimum on nodule size and pa tient risk factors according to Fleischner Society Guidelines. FINDINGS: PULMONARY ARTERIES: No filling defects are seen in the pulmonary arteries through the segmental level. LUNGS: Bibasilar alveolar consolidations are noted consistent with pneumonia. Scattered perihilar patchy den sities are also noted also consistent with probable pneumonia. PLEURAE: There is no pleural thickening or pleural effusion. MEDIASTINUM: There is good visualization of the great vessels of the middle mediastinum. No evidence of mediastin al or hilar adenopathy/mass. MUSCULOSKELETAL: Within normal limits for patient age. MISCELLANEOUS: The visualized upper abdominal organs demonstrate no acute abnormality. 1.7 cm right thyroid nodule i s noted. CONCLUSION: 1. No evidence of pulmonary embolism. 2. Bibasilar alveolar consolidations as well as scattered perihilar patchy opacities suggestive of pr obable pneumonia. Clinical correlation is recommended. 3. 1.7 cm right thyroid nodule. Julian Mcmahan MD on February 04, 2017 at 18:17 Board Certified Radiologist. This report was verified electronically.
--- NOTE | 2017-02-04 18:35 | HHI.HP ---
HPI Service Critical Care Medicine Primary Care Physician Unknown Admission Diagnosis respiratory distress/pneumonia/severe hyponatremia/sepsis Diagnosis: Chief Complaint: Altered mental status, shortness of breath Travel History International Travel<30 Days: No Contact w/Intl Traveler <30 Da: No Traveled to Known Affected Are: No Sepsis Criteria SIRS Criteria (2 or more): Heart rate over 90, RR > 20 or PaCO2 < 32 Sepsis Criteria (SIRS+source): Infect source susp/known Severe Sepsis (+one): Organ Dysfunction Criteria Outcome: Meets severe sepsis criteria History of Present Illness 71-year-old female with a medical history significant for colon cancer in 2003 for which she underwent partial colon resection and chemotherapy, esophageal stricture with significant weight loss due to poor by mouth intake for which she was hospitalized in [place] in November 2016 for 2 weeks treated for pneumonia and subsequently evaluated for dysphagia and was found to have a sufficient stricture for which she was transferred to [facility] in [place] and underwent esophageal dilatation and was subsequently discharged 2 weeks later on a pured diet. Patient moved to [place] with her granddaughter and a few beats VAC was admitted to [facility] for worsening shortness of breath and was diagnosed with a pneumonia, hyponatremia. She was treated with antibiotics and subsequently discharged home however the following day had to be readmitted at [facility] for unresolved shortness of breath where she was hospitalized for a week and subsequently discharged to shelter 3 days prior to this admission. Patient's by mouth intake has been poor since her discharge 3 days back according to her granddaughter as the pured diet at the shelter is to take. Patient was found to have altered mental status today and was found slumped to one side with poor respirations. EMS was called and patient was noted to have O2 sats in the 60s. She was transported to the emergency room where she was placed on BiPAP for respiratory distress with hypoxic respiratory failure. She was also noted to be hypertensive on arrival with systolic blood pressure in the 200s. Patient was also found to have a sodium of 118. I was contacted by ER physician and accepted patient for admission to the ICU. When I evaluated the patient in the ER she was on BiPAP with full facemask. History was obtained by discussion with patient's granddaughter was at the bedside. Patient was much more awake at this time and trying to communicate however in view of BiPAP requirement was difficult to communicate with. She denied any chest pain at the time. Patient has chronic diarrhea since her colon surgery in 2003. Per the granddaughter she was doing well till about 3 months ago when she started having significant weight loss and poor by mouth intake possibly related to esophageal stricture and the fact that she was taking care of her sick family member at home. She has been advised a PEG tube per the granddaughter because of her poor nutritional status and poor by mouth intake. She has had problems with hyponatremia off and on for a while. Patient's granddaughter is very concerned about her poor nutritional status. 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 Past Surgical History H/o left THR 2014 partial colectomy 2003 for colon Cancer Social History Tobacco Use: No Allergies-Medications (Allergen,Severity, Reaction): Coded Allergies: Penicillins (Verified Allergy, Unknown, 02/04/17) Review of Systems ROS Limitations: Altered Mental Status Physical Exam Vital Signs Vital Signs Date Time Temp Pulse Resp B/P (MAP) Pulse Ox O2 Delivery O2 Flow Rate FiO2 02/04/17 16:48 97 60 02/04/17 14:14 98.2 107 32 129/79 (96) 99 BiPAP 02/04/17 11:53 107 36 176/96 (122) 95 BiPAP 02/04/17 11:08 115 38 231/120 (157) 93 BiPAP 02/04/17 11:07 93 BiPAP 02/04/17 10:55 39 89 BiPAP 100 02/04/17 10:50 88 100 02/04/17 10:49 106 34 80 Physical Exam Elderly female appears cachectic, laying in ER stretcher on BiPAP with full facemask. HEENT/Neuro: No pallor or icterus, tongue moist, ZEKE, Awake alert oriented 3 , nonfocal grossly, moving all 4 extremities Neck: No JVD Chest/pulmonary: On BiPAP with full facemask, good air entry bilaterally, scattered rhonchi, no wheezing Cardiovascular: S1-S2 regular no gallop or murmur GI/abdomen: Soft, nontender, bowel sounds present Extremities: Warm bilaterally, no edema Laboratory Laboratory Tests Test 02/04/17 11:35 02/04/17 12:40 02/04/17 13:00 White Blood Count 5.4 Red Blood Count 3.62 Hemoglobin 10.8 Hematocrit 30.7 Mean Corpuscular Volume 84.8 Mean Corpuscular Hemoglobin 29.8 Mean Corpuscular Hemoglobin Concent 35.2 Red Cell Distribution Width 15.5 Platelet Count 248 Mean Platelet Volume 6.5 Neutrophils (%) (Auto) 91.3 Lymphocytes (%) (Auto) 3.3 Monocytes (%) (Auto) 5.1 Eosinophils (%) (Auto) 0.1 Basophils (%) (Auto) 0.2 Neutrophils # (Auto) 5.0 Lymphocytes # (Auto) 0.2 Monocytes # (Auto) 0.3 Eosinophils # (Auto) 0.0 Basophils # (Auto) 0.0 CBC Comment DIFF FINAL Differential Comment Prothrombin Time 12.0 Prothromb Time International Ratio 1.2 Activated Partial Thromboplast Time 28.8 Blood Gas Puncture Site RT RADIAL Blood Gas Patient Temperature 37.0 Blood Gas HCO3 28 Blood Gas Base Excess 3.0 Blood Gas Oxygen Saturation 95 Arterial Blood pH 7.39 Arterial Blood Partial Pressure CO2 46 Arterial Blood Partial Pressure O2 90 Arterial Blood Oxygen Content 15.0 Arterial Blood Carboxyhemoglobin 1.4 Arterial Blood Methemoglobin 0.3 Blood Gas Hemoglobin 11.2 Oxygen Delivery Device BIPAP Blood Gas Ventilator Setting EPAP5/IPAP10 Blood Gas Inspired Oxygen 100 Blood Urea Nitrogen 12 Creatinine 0.54 Random Glucose 182 Total Protein 6.7 Albumin 3.0 Calcium Level 9.0 Magnesium Level 1.4 Alkaline Phosphatase 88 Aspartate Amino Transf (AST/SGOT) 17 Alanine Aminotransferase (ALT/SGPT) 17 Total Bilirubin 1.6 Sodium Level 118 Potassium Level 3.8 Chloride Level 81 Carbon Dioxide Level 25.2 Anion Gap 12 Estimat Glomerular Filtration Rate 111 Total Creatine Kinase 71 Troponin I LESS THAN 0.02 B-Type Natriuretic Peptide 82 Urine Color LIGHT-YELLOW Urine Turbidity CLEAR Urine pH 5.0 Urine Specific [place] 1.006 Urine Protein NEG Urine Glucose (UA) NEG Urine Ketones NEG Urine Occult Blood NEG Urine Nitrite NEG Urine Bilirubin NEG Urine Urobilinogen LESS THAN 2.0 Urine Leukocyte Esterase NEG Urine RBC 1 Urine Squamous Epithelial Cells 1 Urine Hyaline Casts 7 Urine Mucus FEW Microscopic Urinalysis Comment CULT NOT INDICATED Lactic Acid Level 1.8 Date/Time Source Procedure Growth Status 02/04/17 11:35 Blood Peripheral Aerobic Blood Culture Pending Received 02/04/17 11:35 Blood Peripheral Anaerobic Blood Culture Pending Received Result Diagram: 02/04/17 1135 02/04/17 1135 Imaging Last Impressions Chest X-Ray 02/04/17 1052 Signed Impressions: Service Date/Time: Saturday, February 04, 2017 11:14 - CONCLUSION: 1. Airspace infiltrate in the medial right base characteristic of a pneumonic process. This probably explains current clinical symptoms. 2. Some blunting of the left costophrenic angle may represent a small effusion. Left lung is otherwise clear. Nura Cook MD Septic Shock Reassessment Heart: Regular rate and rhythm Lungs: Course Skin: Warm Peripheral Pulses: Bounding Right Radial Capillary Refill: Brisk Caprini VTE Risk Assessment Caprini VTE Risk Assessment: Mod/High Risk (score >= 2) Caprini Risk Assessment Model Point Value = 1 Point Value = 2 Point Value = 3 Point Value = 5 Age 41-60 Minor surgery BMI > 25 kg/m2 Swollen legs Varicose veins or History of unexplained or recurrent spontaneous Oral contraceptives or hormone replacement Sepsis (< 1 month) Serious lung disease, including pneumonia (< 1 month) Abnormal pulmonary function Acute myocardial infarction Congestive heart failure (< 1 month) History of inflammatory bowel disease Medical patient at bed rest Age 61-74 Arthroscopic surgery Major open surgery (> 45 min) Laparoscopic surgery (> 45 min) Malignancy Confined to bed (> 72 hours) Immobilizing plaster cast Central venous access Age >= 75 History of VTE Family history of VTE Factor V Leiden Prothrombin [id number] Lupus anticoagulant Anticardiolipin antibodies Elevated serum homocysteine Heparin-induced thrombocytopenia Other congenital or acquired thrombophilia Stroke (< 1 month) Elective arthroplasty Hip, pelvis, or leg fracture Acute spinal cord injury (< 1 month) Prophylaxis Regimen Total Risk Factor Score Risk Level Prophylaxis Regimen 0-1 Low Early ambulation 2 Moderate Order ONE of the following: *Sequential Compression Device (SCD) *Heparin 5000 units SQ BID 3-4 Higher Order ONE of the following medications: *Heparin 5000 units SQ TID *Enoxaparin/Lovenox 40 mg SQ daily (WT < 150 kg, CrCl > 30 mL/min) *Enoxaparin/Lovenox 30 mg SQ daily (WT < 150 kg, CrCl > 10-29 mL/min) *Enoxaparin/Lovenox 30 mg SQ BID (WT < 150 kg, CrCl > 30 mL/min) AND/OR *Sequential Compression Device (SCD) 5 or more Highest Order ONE of the following medications: *Heparin 5000 units SQ TID (Preferred with Epidurals) *Enoxaparin/Lovenox 40 mg SQ daily (WT < 150 kg, CrCl > 30 mL/min) *Enoxaparin/Lovenox 30 mg SQ daily (WT < 150 kg, CrCl > 10-29 mL/min) *Enoxaparin/Lovenox 30 mg SQ BID (WT < 150 kg, CrCl > 30 mL/min) AND *Sequential Compression Device (SCD) Assessment and Plan Assessment and Plan 71-year-old female with: Encephalopathy Acute respiratory failure requiring BiPAP Possible aspiration pneumonia (prehospital) Failure to thrive Hyponatremia Chronic diarrhea History of visual stricture status post recent esophageal dilation History of colon cancer Lower extremity edema Plan: Neuro: Follow neuro status. Avoid sedatives and narcotics. Awaiting head CT without contrast to further evaluate altered mental status Cardiovascular: IV hydration, labetalol when necessary for hypertension. BNP not elevated. EKG unremarkable Pulmonary: Continue BiPAP, bronchodilators as needed. Awaiting CT chest PE protocol for further evaluation of respiratory failure. GI/liver: Nothing by mouth till improvement and respiration status. We'll consult GI for PEG tube placement eventually in view of poor by mouth intake and poor nutritional status despite esophageal dilation. Renal/: Started on normal saline at 125 cc/h for hyponatremia. Follow serial sodium levels. Check serum osmolarity, urine sodium and creatinine. Check TSH for further evaluation of hyponatremia. Suspect hyponatremia secondary to chronic diarrhea and poor by mouth intake. Nephrology consult requested for further evaluation. ID: Question of aspiration in view of history of esophageal dilation secondary to esophageal stricture and altered mental status with right sided infiltrate on chest x-ray. Follow-up blood cultures. Empiric antibiotic coverage with IV Levaquin and Flagyl. Check pro calcitonin. Endocrine: Check TSH. Watch for hyperglycemia, SSI for glycemic control if needed. Heme-onc: Follow CBC and coags. Check d-dimer. Will obtain medical records from recent hospitalizations prior to initiating any further workup for weight loss. Prophylaxis: Pepcid/SCDs. Subcutaneous Lovenox. Discussed at length with patient's granddaughter at bedside. She wishes to continue aggressive care at this time including PEG tube if needed. Her eventual plan is to get the patient back to [place] with the rest of the family. Palliative care consulted to assist with deciding goals of therapy in view of significant weight loss with failure to thrive and recurrent hospitalizations with rapid decline in functional status. Condition critical. Time spent on critical care excluding procedures 70 minutes Carl Nieto MD Feb 04, 2017 18:35
--- NOTE | 2017-02-04 18:48 | PD.CONS ---
HPI Consult Requested By Reason for Consult Hyponatremia Primary Care Physician Unknown History of Present Illness This patient is a 71-year-old female with a history of recurrent pneumonia, hyponatremia, see of the colon with previous resection and by history apparent failure to thrive with progressive weight loss. Mention of recent hospitalization at [facility] with pneumonia and hyponatremia. Records are not presently available to me. Patient subsequently according to the records I reviewed was admitted at [facility] 2 electrolyte abnormalities again records are not available. Now [facility] from a [facility] with a history of shortness of breath and altered mental status. Chest x-ray indicating Changes consistent with pneumonia and serum sodium level was 118. Patient's nutritional intake continues to be poor by history with progressive weight loss. Review of Systems ROS Limitations: Clinical Condition Past Family Social History Allergies: Coded Allergies: Penicillins (Verified Allergy, Unknown, 02/04/17) Past Medical History Pneumonia Hyponatremia chronic Esophageal stricture with previous notation. Failure to thrive with progressive weight loss. Recurrent pneumonia. Past Surgical History Surgery for carcinoma colon. Details not available presently. Active Ordered Medications Current Medications Sodium Chloride (NS Flush) 2 ml UNSCH PRN IVF FLUSH AFTER USING IV ACCESS; Start 02/04/17 at 11:00; Stop 02/04/17 at 13:49; Status DC Furosemide (Lasix Inj) 40 mg ONCE ONCE IV PUSH Last administered on 02/04/17 11:15; Start 02/04/17 at 11:00; Stop 02/04/17 at 11:01; Status DC Nitroglycerin (Nitroglycerin 2% Oint) 1 inch ONCE ONCE TOPICAL Last administered on 02/04/17 11:52; Start 02/04/17 at 11:45; Stop 02/04/17 at 11:46 ; Status DC Sodium Chloride 1,000 ml @ 84 mls/hr [id number] IV ; Start 02/04/17 at 13:00; Stop 02/04/17 at 13:23; Status DC Cefepime HCl 2000 mg/Sodium Chloride 100 ml @ 200 mls/hr ONCE STAT IV Last administered on 02/04/17 13:51; Start 02/04/17 at 12:59; Stop 02/04/17 at 13:28 ; Status DC Azithromycin 500 mg/Sodium Chloride 250 ml @ 250 mls/hr ONCE STAT IV Last administered on 02/04/17 15:33; Start 02/04/17 at 12:59; Stop 02/04/17 at 13:58 ; Status DC Sodium Chloride 1,000 ml @ 40 mls/hr Q24H IV Last administered on 02/04/17t 13 :51; Start 02/04/17 at 13:06 Sodium Chloride (NS Flush) 2 ml UNSCH PRN IV FLUSH FLUSH AFTER USING IV ACCESS ; Start 02/04/17 at 13:15 Sodium Chloride (NS Flush) 2 ml BID IV FLUSH ; Start 02/04/17 at 21:00 Albuterol/ Ipratropium (Duoneb Neb) 1 ampule Q6HR NEB NEB Last administered on 02/04/17 16:53; Start 02/04/17 at 16:00 Albuterol/ Ipratropium (Duoneb Neb) 1 ampule Q4HR NEB PRN INH SHORTNESS OF BREATH; Start 02/04/17 at 14:00 Chlorhexidine Gluconate (Peridex 0.12% Liq) 15 ml BID@08,20 MT ; Start 02/04/17 at 20:00 Famotidine (Pepcid Inj) 20 mg Q12HR IV PUSH ; Start 02/04/17 at 21:00 Miscellaneous Information 1 Q361D XX ; Start 02/04/17 at 13:15 Chlorhexidine Gluconate (Chlorhexidine 2% Cloth) 3 pack Taper DAILY@04 TOP ; Start 02/05/17 at 04:00; Stop 02/01/18 at 03:59 Chlorhexidine Gluconate (Chlorhexidine 2% Cloth) 3 pack UNSCH PRN TOP HYGIENIC CARE; Start 02/04/17 at 13:15 Insulin Aspart (NovoLOG SUPPLEMENTAL SCALE) 1 Q6HR SQ ; Start 02/04/17 at 18:00 Labetalol HCl (Trandate Inj) 10 mg Q2HR PRN IV PUSH SBP greater than 150mm Hg; Start 02/04/17 at 13:30 Labetalol HCl (Trandate Inj) 10 mg STAT ONCE IV PUSH ; Start 02/04/17 at 13:45 ; Stop 02/04/17 at 13:46; Status DC Metronidazole 100 ml @ 100 mls/hr Q8H IV ; Start 02/04/17 at 20:00 Levofloxacin/ Dextrose 150 ml @ 100 mls/hr Q24H IV ; Start 02/04/17 at 21:00 Family History Patient to provide presently. Respiratory distress. Social History Denying tobacco use or alcohol abuse. Physical Exam Vital Signs Vital Signs Date Time Temp Pulse Resp B/P (MAP) Pulse Ox O2 Delivery O2 Flow Rate FiO2 02/04/17 18:37 02/04/17 17:45 98 Non-Rebreather 15.00 02/04/17 16:48 97 60 02/04/17 14:14 98.2 107 32 129/79 (96) 99 BiPAP 02/04/17 11:53 107 36 176/96 (122) 95 BiPAP 02/04/17 11:08 115 38 231/120 (157) 93 BiPAP 02/04/17 11:07 93 BiPAP 02/04/17 10:55 39 89 BiPAP 100 02/04/17 10:50 88 100 02/04/17 10:49 106 34 80 Physical Exam GENERAL: In general examination reveals an emaciated female with wasting of the musculature of all limbs. In moderate respiratory distress with BiPAP mask in place. Patient looks significantly older than her stated age. SKIN: Warm and dry. HEAD: Normocephalic. EYES: No scleral icterus. No injection or drainage. NECK: Supple, trachea midline. No JVD or lymphadenopathy. CARDIOVASCULAR: Regular rate and rhythm without murmurs, gallops, or rubs. RESPIRATORY: Breath sounds equal bilaterally. Accessory muscle usage. Few bilateral rhonchi. Diminished air entry. GASTROINTESTINAL: Abdomen soft, non-tender, nondistended. MUSCULOSKELETAL: No cyanosis, 2+ pitting edema feet, ankles and lower legs. BACK: Nontender without obvious deformity. No CVA tenderness. Laboratory Laboratory Tests Test 02/04/17 11:35 02/04/17 12:40 02/04/17 13:00 White Blood Count 5.4 Red Blood Count 3.62 Hemoglobin 10.8 Hematocrit 30.7 Mean Corpuscular Volume 84.8 Mean Corpuscular Hemoglobin 29.8 Mean Corpuscular Hemoglobin Concent 35.2 Red Cell Distribution Width 15.5 Platelet Count 248 Mean Platelet Volume 6.5 Neutrophils (%) (Auto) 91.3 Lymphocytes (%) (Auto) 3.3 Monocytes (%) (Auto) 5.1 Eosinophils (%) (Auto) 0.1 Basophils (%) (Auto) 0.2 Neutrophils # (Auto) 5.0 Lymphocytes # (Auto) 0.2 Monocytes # (Auto) 0.3 Eosinophils # (Auto) 0.0 Basophils # (Auto) 0.0 CBC Comment DIFF FINAL Differential Comment Prothrombin Time 12.0 Prothromb Time International Ratio 1.2 Activated Partial Thromboplast Time 28.8 Blood Gas Puncture Site RT RADIAL Blood Gas Patient Temperature 37.0 Blood Gas HCO3 28 Blood Gas Base Excess 3.0 Blood Gas Oxygen Saturation 95 Arterial Blood pH 7.39 Arterial Blood Partial Pressure CO2 46 Arterial Blood Partial Pressure O2 90 Arterial Blood Oxygen Content 15.0 Arterial Blood Carboxyhemoglobin 1.4 Arterial Blood Methemoglobin 0.3 Blood Gas Hemoglobin 11.2 Oxygen Delivery Device BIPAP Blood Gas Ventilator Setting EPAP5/IPAP10 Blood Gas Inspired Oxygen 100 Blood Urea Nitrogen 12 Creatinine 0.54 Random Glucose 182 Total Protein 6.7 Albumin 3.0 Calcium Level 9.0 Magnesium Level 1.4 Alkaline Phosphatase 88 Aspartate Amino Transf (AST/SGOT) 17 Alanine Aminotransferase (ALT/SGPT) 17 Total Bilirubin 1.6 Sodium Level 118 Potassium Level 3.8 Chloride Level 81 Carbon Dioxide Level 25.2 Anion Gap 12 Estimat Glomerular Filtration Rate 111 Total Creatine Kinase 71 Troponin I LESS THAN 0.02 B-Type Natriuretic Peptide 82 Urine Color LIGHT-YELLOW Urine Turbidity CLEAR Urine pH 5.0 Urine Specific [place] 1.006 Urine Protein NEG Urine Glucose (UA) NEG Urine Ketones NEG Urine Occult Blood NEG Urine Nitrite NEG Urine Bilirubin NEG Urine Urobilinogen LESS THAN 2.0 Urine Leukocyte Esterase NEG Urine RBC 1 Urine Squamous Epithelial Cells 1 Urine Hyaline Casts 7 Urine Mucus FEW Microscopic Urinalysis Comment CULT NOT INDICATED Lactic Acid Level 1.8 Date/Time Source Procedure Growth Status 02/04/17 11:35 Blood Peripheral Aerobic Blood Culture Pending Received 02/04/17 11:35 Blood Peripheral Anaerobic Blood Culture Pending Received Result Diagram: 02/04/17 1135 02/04/17 1135 Imaging Last 48 hours Impressions Chest X-Ray 02/04/17 1052 Signed Impressions: Service Date/Time: Saturday, February 04, 2017 11:14 - CONCLUSION: 1. Airspace infiltrate in the medial right base characteristic of a pneumonic process. This probably explains current clinical symptoms. 2. Some blunting of the left costophrenic angle may represent a small effusion. Left lung is otherwise clear. Nura Cook MD Head CT 02/04/17 0000 Signed Impressions: Service Date/Time: Saturday, February 04, 2017 17:50 - CONCLUSION: 1. No acute intracranial abnormality. 2. Tiny fluid level within the right maxillary sinus. Julian Mcmahan MD CT Angiography 02/04/17 0000 Signed Impressions: Service Date/Time: Saturday, February 04, 2017 17:54 - CONCLUSION: 1. No evidence of pulmonary embolism. 2. Bibasilar alveolar consolidations as well as scattered perihilar patchy opacities suggestive of probable pneumonia. Clinical correlation is recommended. 3. 1.7 cm right thyroid nodule. Julian Mcmahan MD Assessment and Plan Problem List: (1) Hyponatremia ICD Codes: E87.1 - Hypo-osmolality and hyponatremia Status: Acute Plan: Probable acute on chronic give medical history of previous episodes. Etiology most likely multifactorial secondary to poor nutritional intake resulting in a paucity of osmoles required for free water clearance as well as pneumonia which can be associated with SIADH. Repeat serum sodium level. Continue normal saline for the present pending follow-up sodium level. Consideration may be given to utilization of ADH antagonist depending upon results. Goal will be to increase her serum sodium level by approximately 6-8 mEq in the first 24 hours.. I will review records from [facility] when available. (2) Failure to thrive in adult ICD Codes: R62.7 - Adult failure to thrive Plan: Clinical history strongly suggestive of failure to thrive with progressive weight loss and patient appears to be emaciated. Etiology of this is uncertain. Apparently she has been admitted to 3 institutions recently prior to being admitted here. Defer to in house primary care physician in regard to evaluating this further. Given the patient's current clinical status prognosis is guarded. (3) Pneumonia ICD Codes: J18.9 - Pneumonia, unspecified organism Status: Acute Plan: Management per critical care. Gloria Estes MD Feb 04, 2017 18:48
[2017-02-04] MEDS: PANTOPRAZOLE SODIUM 40 MG VIAL IV PUSH SCH (18:53)
[2017-02-04] MEDS: CHLORHEXIDINE 0.12% (ORAL KIT) 15 ML CUP MT SCH (20:00)
[2017-02-04 20:21] LABS: BICARBONATE 29.7 MEQ/L (21.0-32.0); CALCIUM 8.5 MG/DL (8.5-10.1); CREATININE 0.42 MG/DL (0.50-1.00)
[2017-02-04] MEDS: SODIUM CHLORIDE 0.9% FLUSH 10 ML FLUSH IV FLUSH SCH (20:26)
[2017-02-04] MEDS: ENOXAPARIN SODIUM 40 MG/0.4 ML SYRINGE SQ SCH (20:26)
[2017-02-04] MEDS: metroNIDAZOLE 500 MG INJ 100 ML IV SCH (20:26)
[2017-02-04] MEDS: LEVOFLOXACIN 750 MG PREMIX INJ 150 ML IV SCH (20:26)
[2017-02-04] MEDS ORDERED: IOHEXOL 350 MG/ML 10 ML VIAL (for RAD DIAG) IVCONTRAST ONE (20:52)
[2017-02-04] MEDS ORDERED: FAMOTIDINE 20 MG/2 ML VIAL IV PUSH SCH (21:00)
--- NOTE | 2017-02-04 22:00 | RADRPT ---
EXAM DATE/TIME: 02/04/2017 21:13 [facility] COMPARISON: No previous studies available for comparison. INDICATIONS : Bilateral leg swelling. MEDICAL HISTORY : Pneumonia. Cough. Weakness. Anxiety. Colon cancer. Esophageal obstruction. Dysphagia. SURGICAL HISTORY : Colon resection. Esophageal dilatation. Left hip replacement. ENCOUNTER: Initial ACUITY: 1 day PAIN SCORE: 6/10 LOCATION: Bilateral legs. TECHNIQUE: Venous ultrasound of the left and right leg was performed from the inguinal ligament to the proximal calf. Real-time, color Doppler and spectral tracing, compression and augmentation techniques were us ed. FINDINGS: RIGHT LEG: There is normal compressibility of the deep venous system from the inguinal region to the proximal ca lf. No echogenic clot is seen in the lumen of the common femoral, femoral, popliteal, and posterior tibial veins. There is a normal response of the venous system to proximal and distal augmentation an d respiration. LEFT LEG: There is normal compressibility of the deep venous system from the inguinal region to the proximal ca lf. No echogenic clot is seen in the lumen of the common femoral, femoral, popliteal, and posterior tibial veins. There is a normal response of the venous system to proximal and distal augmentation an d respiration. Popliteal cyst is noted on the left measuring 2.2 x 1.5 x 0.9 cm. CONCLUSION: 1. No evidence of deep venous thrombosis within the lower extremities. 2. Popliteal cyst on the left measuring 2.2 x 1.5 x 0.9 cm. Julian Mcmahan MD on February 04, 2017 at 21:57 Board Certified Radiologist. This report was verified electronically.
[2017-02-05] VITALS (30 sets, daily range): BP systolic 95–184; BP diastolic 53–81; PULSE 83–112; RESP 16–56; TEMP 98.4–98.8; O2SAT 78–100
[2017-02-05] MEDS: LORazepam 2 MG/ML VIAL IV PUSH PRN ×3 (00:12→19:52)
[2017-02-05] MEDS: SODIUM CHLOR 0.9% 1000 ML INJ 1,000 ML IV SCH (02:26)
[2017-02-05] MEDS: CHLORHEXIDINE GLUCONATE 2 % 1 PACK (2 CLOTHS) TOP SCH (04:00)
[2017-02-05] MEDS: RESP: ALBUTEROL 2.5 MG/IPRATROPIUM 0.5 MG NEB (SCH) NEB ×4 (04:17→20:30)
--- NOTE | 2017-02-05 05:52 | RADRPT ---
EXAM DATE/TIME: 02/05/2017 04:25 [facility] COMPARISON: CHEST SINGLE AP, February 04, 2017, 11:14. INDICATIONS : Shortness of breath, possible respiratory disease. MEDICAL HISTORY : Hypertension. SURGICAL HISTORY : None. ENCOUNTER: Subsequent ACUITY: 2 days PAIN SCORE: 0/10 LOCATION: Bilateral chest FINDINGS: A single AP erect view of the chest was obtained. The patient is now mildly rotated to the left. Patc hy infiltrate is present in both medial lung bases. There is no definite effusion. The heart size is within normal limits with no perihilar edema. Overlying electrode are cardiac leads and tubing is no cecilia. CONCLUSION: Patchy infiltrate is now present in both medial lung bases. Caesar Ramos MD on February 05, 2017 at 5:49 Board Certified Radiologist. This report was verified electronically.
[2017-02-05] MEDS: INSULIN ASPART SUPPLEMENTAL SCALE SQ SCH ×4 (06:00→18:00)
[2017-02-05] MEDS: RESP: ALBUTEROL 2.5 MG/IPRATROPIUM 0.5 MG NEB (PRN) INH ×2 (06:38→17:35)
--- NOTE | 2017-02-05 06:41 | RADRPT ---
EXAM DATE/TIME: 02/05/2017 05:52 [place] COMPARISON: CHEST SINGLE AP, February 05, 2017, 4:25. INDICATIONS : Nasogastric tube placement. MEDICAL HISTORY : Hypertension. SURGICAL HISTORY : None. ENCOUNTER: Subsequent ACUITY: 2 days PAIN SCORE: 0/10 LOCATION: Bilateral upper quadrant FINDINGS: A single AP erect view of the upper abdomen and chest was obtained and demonstrates a nasogastric tub e coursing into the trachea and left mainstem bronchus. Bibasilar infiltrate remains. The heart size is within normal limits. There is a nonobstructive bowel gas pattern with no free air. CONCLUSION: Interval placement of nasogastric tube with the tip in the left mainstem bronchus. Caesar Ramos MD on February 05, 2017 at 6:38 Board Certified Radiologist. This report was verified electronically.
[2017-02-05] MEDS: metroNIDAZOLE 500 MG INJ 100 ML IV SCH ×3 (06:53→19:47)
[2017-02-05 07:32] LABS: HEMATOCRIT 27.8 % (35.0-46.0); HEMOGLOBIN 9.9 GM/DL (11.6-15.3); MEAN CELL VOLUME 88.5 FL (80.0-100.0); MEAN CORPUSCULAR HEMOGLOBIN 31.6 PG (27.0-34.0); MEAN CORPUSCULAR HGB CONC 35.7 % (32.0-36.0); MEAN PLATELET VOLUME 6.8 FL (7.0-11.0); PLATELET COUNT 140 TH/MM3 (150-450); RED BLOOD COUNT 3.14 MIL/MM3 (4.00-5.30); RED CELL DISTRIBUTION WIDTH 15.9 % (11.6-17.2); WHITE BLOOD COUNT 4.4 TH/MM3 (4.0-11.0)
[2017-02-05] MEDS: CHLORHEXIDINE 0.12% (ORAL KIT) 15 ML CUP MT SCH ×2 (08:00→19:48)
[2017-02-05 08:07] LABS: ALBUMIN 2.6 GM/DL (3.4-5.0); ALKALINE PHOSPHATASE 76 U/L (45-117); ALT (GPT) 14 U/L (10-53); AST (GOT) 19 U/L (15-37); BICARBONATE 28.2 MEQ/L (21.0-32.0); BLOOD UREA NITROGEN 14 MG/DL (7-18); CALCIUM 8.4 MG/DL (8.5-10.1); CHLORIDE 84 MEQ/L (98-107); CREATININE 0.51 MG/DL (0.50-1.00); GLOMERULAR FILTRATION RATE 119 ML/MIN (>89); GLUCOSE,RANDOM 92 MG/DL (74-106); TOTAL BILIRUBIN ADULT 1.1 MG/DL (0.2-1.0); TOTAL PROTEIN 6.5 GM/DL (6.4-8.2)
[2017-02-05 08:14] LABS: SODIUM (NA) 122 MEQ/L (136-145)
[2017-02-05 08:38] LABS: BANDS 42 % (0-6); LYMPHOCYTES 5 % (9-44); METAMYELOCYTES 16 % (0-1); MONOCYTES 6 % (0-8); NEUTROPHIL # MANUAL DIFF 3.9 TH/MM3 (1.8-7.7); POLYS (SEG NEUTROPHILS) 31 % (16-70)
[2017-02-05 08:39] LABS: ACANTHOCYTES OCC (NORMAL); OVALOCYTES 1+ (NORMAL); TOXIC GRANULATION 1+ (NORMAL); TOXIC VACUOLATION PRESENT (NONE SEEN)
[2017-02-05] MEDS: SODIUM CHLORIDE 0.9% FLUSH 10 ML FLUSH IV FLUSH SCH ×2 (10:05→19:48)
[2017-02-05] MEDS: PANTOPRAZOLE SODIUM 40 MG VIAL IV PUSH SCH (10:05)
--- NOTE | 2017-02-05 10:26 | EKG ---
Date Performed: 02/04/2017 Time Performed: 11:20:15 PTAGE: 71 years EKG: SINUS TACHYCARDIA POSSIBLE LEFT ATRIAL ENLARGEMENT SEPTAL MYOCARDIAL INFARCTION ABNORMAL EC G NO PREVIOUS TRACING DOCTOR: Timo Rosenberg Interpretating Date/Time 02/05/2017 10:25:26
[2017-02-05] MEDS ORDERED: NS + KCL 40 MEQ INJ 1,000 ML IV SCH (11:00)
--- NOTE | 2017-02-05 14:50 | PD.CONS ---
HPI History of Present Illness This is a 71 year old female with hx colon ca 2004, esophageal stricture, chronic diarrhea who presented with AMS, low oxygen sats, hypertension, poor PO intake. GI consulted for poss PEG tube placement. Pt has hx esophageal stricture requiring dilatation with pediatric scope, this was done at [place] in 11/2016. Pt has been eating less. She has had several swallow evals at different facilities and per last one thin liquids and purees recommended. Per granddaughter she has been afraid to eat, coughs at times and seems to have trouble swallowing, as in initiating the swallow. She has lost 25 lbs in 1-2 months. Has not eaten in 4 days. She was doing well and fairly independent until about 2 months ago when she got PNA and seemed to have subsequent deterioration. She has chronic diarrhea with some alternating constipation, since the colectomy in 2003, 18 inches colon removed. She has also been having BLE edema in last few months. (Juanis Reddy) PFSH Past Medical History Colon Cancer in 2004 status post chemotherapy Anxiety Pneumonia Hyponatremia . Past Surgical History Partial colon resection for colon cancer-14 years ago Esophageal dilatation Left hip replacement in 2013 . (Juanis Reddy) Coded Allergies: Penicillins (Verified Allergy, Unknown, 02/04/17) Family History Father from implications of an aneurysm Mother is still leaving it age 95 and is healthy Sister is still living, has a ray immune disease-she has a tracheostomy . Social History no toxic habits (Juanis Reddy) Review of Systems ROS noncontributory (Juanis Reddy) GI Exam Vitals I&O Vital Signs Date Time Temp Pulse Resp B/P (MAP) Pulse Ox O2 Delivery O2 Flow Rate FiO2 02/05/17 11:00 97 20 127/58 (81) 96 02/05/17 11:00 97 02/05/17 10:00 96 18 110/58 (75) 100 02/05/17 10:00 96 02/05/17 09:00 104 25 119/58 (78) 98 02/05/17 09:00 104 02/05/17 08:26 95 Nasal Cannula 4.00 02/05/17 08:00 98.4 90 24 111/59 (76) 98 02/05/17 08:00 90 02/05/17 07:00 99 35 120/57 (78) 92 02/05/17 07:00 99 02/05/17 06:38 98 50 02/05/17 06:00 111 02/05/17 06:00 111 36 143/81 (101) 78 02/05/17 05:00 83 56 123/56 (78) 100 02/05/17 04:00 98.6 85 27 111/57 (75) 100 02/05/17 04:00 85 02/05/17 03:00 100 26 122/64 (83) 100 02/05/17 02:00 86 02/05/17 02:00 86 19 119/60 (79) 100 02/05/17 01:00 96 17 95/53 (67) 99 02/05/17 00:00 98.8 100 36 142/72 (95) 97 02/05/17 00:00 100 02/04/17 23:00 85 34 154/72 (99) 100 02/04/17 22:00 89 35 134/66 (88) 100 02/04/17 22:00 89 02/04/17 21:00 124 40 155/97 (116) 95 02/04/17 20:00 123 02/04/17 20:00 99.3 123 35 159/85 (109) 96 02/04/17 19:00 129 36 156/98 (117) 96 02/04/17 18:37 02/04/17 17:45 98 Non-Rebreather 15.00 02/04/17 16:48 97 60 I/O 02/04/17 02/04/17 02/04/17 02/05/17 02/05/17 02/05/17 07:00 15:00 23:00 07:00 15:00 23:00 Intake Total 350 ml 250 ml 1501 ml Output Total 600 ml 800 ml Balance -250 ml -550 ml 1501 ml Intake IV Total 350 ml 250 ml 1501 ml Output Urine Total 600 ml 800 ml # Bowel Movements 0 Imaging Last Impressions Chest X-Ray 02/05/17 0600 Signed Impressions: Service Date/Time: January 04:25 - CONCLUSION: Patchy infiltrate is now present in both medial lung bases. Caesar Ramos MD Lower Extremity Ultrasound 02/04/17 0000 Signed Impressions: Service Date/Time: Saturday, February 04, 2017 21:13 - CONCLUSION: 1. No evidence of deep venous thrombosis within the lower extremities. 2. Popliteal cyst on the left measuring 2.2 x 1.5 x 0.9 cm. Julian Mcmahan MD Head CT 02/04/17 0000 Signed Impressions: Service Date/Time: Saturday, February 04, 2017 17:50 - CONCLUSION: 1. No acute intracranial abnormality. 2. Tiny fluid level within the right maxillary sinus. Julian Mcmahan MD CT Angiography 02/04/17 0000 Signed Impressions: Service Date/Time: Saturday, February 04, 2017 17:54 - CONCLUSION: 1. No evidence of pulmonary embolism. 2. Bibasilar alveolar consolidations as well as scattered perihilar patchy opacities suggestive of probable pneumonia. Clinical correlation is recommended. 3. 1.7 cm right thyroid nodule. Julian Mcmahan MD Abdomen X-Ray 02/04/17 0000 Signed Impressions: Service Date/Time: January 05:52 - CONCLUSION: Interval placement of nasogastric tube with the tip in the left mainstem bronchus. Caesar Ramos MD Laboratory Test 02/04/17 19:45 02/04/17 19:53 02/05/17 07:05 Urine Osmolality 329 MOSM/KG Urine Random Sodium 72 MEQ/L D-Dimer Quantitative (PE/DVT) 1.65 MG/L FEU Blood Urea Nitrogen 12 MG/DL 14 MG/DL Creatinine 0.42 MG/DL 0.51 MG/DL Random Glucose 85 MG/DL 92 MG/DL Calcium Level 8.5 MG/DL 8.4 MG/DL Sodium Level 122 MEQ/L 122 MEQ/L Potassium Level 3.1 MEQ/L 3.1 MEQ/L Chloride Level 82 MEQ/L 84 MEQ/L Carbon Dioxide Level 29.7 MEQ/L 28.2 MEQ/L Anion Gap 10 MEQ/L 10 MEQ/L Estimat Glomerular Filtration Rate 149 ML/MIN 119 ML/MIN Serum Osmolality 263 MOSM/KG Thyroid Stimulating Hormone 3rd Gen 0.691 uIU/ML White Blood Count 4.4 TH/MM3 Red Blood Count 3.14 MIL/MM3 Hemoglobin 9.9 GM/DL Hematocrit 27.8 % Mean Corpuscular Volume 88.5 FL Mean Corpuscular Hemoglobin 31.6 PG Mean Corpuscular Hemoglobin Concent 35.7 % Red Cell Distribution Width 15.9 % Platelet Count 140 TH/MM3 Mean Platelet Volume 6.8 FL CBC Comment AUTO DIFF Differential Total Cells Counted 100 Neutrophils % (Manual) 31 % Band Neutrophils % 42 % Lymphocytes % 5 % Monocytes % 6 % Neutrophils # (Manual) 3.9 TH/MM3 Metamyelocytes 16 % Differential Comment FINAL DIFF MANUAL Toxic Granulation 1+ Toxic Vacuolation PRESENT Platelet Estimate LOW Platelet Morphology Comment NORMAL Ovalocytes 1+ Acanthocytes OCC Total Protein 6.5 GM/DL Albumin 2.6 GM/DL Alkaline Phosphatase 76 U/L Aspartate Amino Transf (AST/SGOT) 19 U/L Alanine Aminotransferase (ALT/SGPT) 14 U/L Total Bilirubin 1.1 MG/DL Random Cortisol 99.6 MCG/DL Date/Time Source Procedure Growth Status 02/04/17 11:35 Blood Peripheral Aerobic Blood Culture - Preliminary NO GROWTH IN 1 DAY Resulted 02/04/17 11:35 Blood Peripheral Anaerobic Blood Culture - Preliminary NO GROWTH IN 1 DAY Resulted Physical Examination GENERAL : thin, ill appearing HEENT: normocephalic; atraumatic; no jaundice. CHEST: coughing, coarse sounds CARDIAC: Rrr ABDOMEN: Soft, nondistended, nontender; no hepatosplenomegaly; bowel sounds are present in all four quadrants. EXTREMITIES: No clubbing, cyanosis,significant bilat pedal edema SKIN: Normal; no rash; no jaundice. WATER RESOURCES ENGINEER: lethargic, weak (Juanis Reddy) Assessment and Plan Plan ASSESSMENT - dysphagia, poor PO intake - could be multifactorial. hx esophageal stricture requiring dilatation and EGD with ped scope. per ST eval here pt should be NPO. per granddaughter NGT attempted and unsuccessful, no PO intake in 4 days - chronic diarrhea - since colectomy with 18" removed, hx colon ca - acute respiratory failure, hyponatremia, encephalopathy per [facility] PL[facility] - IR consult for g tube - if unsuccessful could consider EGD/PEG with pediatric scope - consider TPN or PPN - supportive care - further recs to follow This pt seen by myself and Dr Garrison and this note is written on his behalf (Juanis Reddy) Physician Comments Seen and examined with TERE, discussed with lucia at the bedside. H/O esophageal stricture with previous failed egd at [facility]. IR consulted for G tube placement after discussion with the grand daughter. Also discussed with Dr. Nieto. (Nato Garrison MD) Juanis Reddy Feb 05, 2017 14:50 Nato Garrison MD Feb 05, 2017 16:11
[2017-02-05] MEDS ORDERED: D5-NS + KCL 40 MEQ INJ 1,000 ML IV SCH (15:00)
[2017-02-05] MEDS ORDERED: GLUCAGON 1 MG/ML VIAL ONE (15:30)
--- NOTE | 2017-02-05 15:30 | HHI.HCPN ---
Reason for visit a. To assist with evaluation and management of symptoms including:shortness of breath, debility b. To assist medical decision maker(s) with: better understanding of current medical conditions; weighing benefits/burdens of medical treatment options; making medical treatment decisions. Subjective/Interval History Mrs Knapp is a 71 years old female with a past medical history of colon cancer, esophageal strictures, pneumonia and anxiety. Patient was diagnosed with colon cancer in 2003 and was treated with colon resection and chemotherapy. Patient was hospitalized in [place] in November of this year for for 2 weeks and was treated for aspiration pneumonia and hyponatremia. Patient continued to have dysphagia whilst hospitalized and was transferred to [facility] in [facility] where they had pediatric equipment for esophageal dilatation. She was admitted in the hospital for 2 weeks, underwent esophageal dilatation and was discharged on pureed diet and regular fluids. Patient then travelled to [place] with her granddaughter and was home for only 3 weeks before presenting to [facility] on 01/17/17 complaining of shortness of breath, cough, mucopurulent expectoration and generalized weakness. Patient was treated for aspiration pneumonia with Rocephin and clindamycin. During that hospitalization she also had significant hyponatremia and hypokalemia requiring electrolyte replacement. CT chest done at [facility] revealed a 7 mm hypodense lesion in the right lobe of thyroid. Thyroid ultrasound 01/19/17 revealed solid right lobe nodule - tissue diagnosis was recommended. Per her healthcare surrogate patient also had diarrhea while hospitalized from antibiotics. Patient was discharged home and the following day was transported by her family to [facility] for unresolved shortness of breath. She was admitted at [facility] for 3 days where she had electrolyte replacement. Patient was discharged home and only stayed home for 2 days and was taken back to [facility] because of shortness of breath ans weakness. Patient was admitted for 2 more days and was discharged to [facility] [place] for rehabilitation where she has been for 3 days prior to this admission. Patient seen and examined in ICU. Patient`s granddaughter at bedside. Patient lethargic with minimal verbal and eye opening response. 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 Patient getting ready to go to interventional radiology. Patient was on O2 3LNC over night and was briefly on BiPAP after an attempt to insert an NGT. Patient was evaluated by Speech therapist and she did not pass swallow evaluation- recommended NPO.Patient currently not following commands but withdraws with all 4 extremities. Patient is afebrile, HR 90s, SBP low 100s to 140s. O2 saturation in mid to high 90s on 3 L humidified O2 via nasal cannula. Laboratory workup revealing WBC 4.4, hemoglobin 9.9, hematocrit 27.8, platelet count 140, sodium 122, potassium 3.1, BUN/creatinine 14/0.51, total bilirubin 1.1, total protein 6.5, albumin 2.6, random cortisol 99.6. Chest x-ray today revealed pH infiltrate now present in both medial lung bases. GI consulted for PEG placement . Interventional radiology consulted by GI for G tube placement. Case discussed with bedside RN Rachel. Family/friend interactions Patient's granddaughter at bedside. . Advance Directives Living Will: Never completed Health Care Surrogate: Copy in medical record Advance Directive Specifics Date completed: December 19, 2016 . Health Care Surrogate(s): Granddaughter-[facility]- Connie Stratton [facility]- [phone] Alternate [facility]- Freddy Weathers [facility] [phone] . Objective Vital Signs Date Time Temp Pulse Resp B/P (MAP) Pulse Ox O2 Delivery O2 Flow Rate FiO2 02/05/17 11:00 97 20 127/58 (81) 96 02/05/17 11:00 97 02/05/17 10:00 96 18 110/58 (75) 100 02/05/17 10:00 96 02/05/17 09:00 104 25 119/58 (78) 98 02/05/17 09:00 104 02/05/17 08:26 95 Nasal Cannula 4.00 02/05/17 08:00 98.4 90 24 111/59 (76) 98 02/05/17 08:00 90 02/05/17 07:00 99 35 120/57 (78) 92 02/05/17 07:00 99 02/05/17 06:38 98 50 02/05/17 06:00 111 02/05/17 06:00 111 36 143/81 (101) 78 02/05/17 05:00 83 56 123/56 (78) 100 02/05/17 04:00 98.6 85 27 111/57 (75) 100 02/05/17 04:00 85 02/05/17 03:00 100 26 122/64 (83) 100 02/05/17 02:00 86 02/05/17 02:00 86 19 119/60 (79) 100 02/05/17 01:00 96 17 95/53 (67) 99 02/05/17 00:00 98.8 100 36 142/72 (95) 97 02/05/17 00:00 100 02/04/17 23:00 85 34 154/72 (99) 100 02/04/17 22:00 89 35 134/66 (88) 100 02/04/17 22:00 89 02/04/17 21:00 124 40 155/97 (116) 95 02/04/17 20:00 123 02/04/17 20:00 99.3 123 35 159/85 (109) 96 02/04/17 19:00 129 36 156/98 (117) 96 02/04/17 18:37 02/04/17 17:45 98 Non-Rebreather 15.00 02/04/17 16:48 97 60 Intake & Output 02/05/17 02/05/17 07:00 19:00 Intake Total 250 ml 1501 ml Output Total 800 ml Balance -550 ml 1501 ml Intake IV Total 250 ml 1501 ml Output Urine Total 800 ml # Bowel Movements 0 Physical Exam CONSTITUTIONAL/GENERAL: This is a cachectic, ill-looking elderly patient, appears older than stated age, lethargic with minimal verbal response TUBES/LINES/DRAINS: Nasal cannula, Cabrera catheter, PIV SKIN: No jaundice. Ecchymoses on upper extremities-B2 skin tear to left elbow. Skin temperature appropriate. Not diaphoretic. HEAD: Atraumatic. Normocephalic. EYES: Pupils equal and round and reactive. Extraocular motions intact. No scleral icterus. No injection or drainage. Fundi not examined. ENT: Hearing grossly normal. Nose without bleeding or purulent drainage. NECK: Trachea midline. Supple, nontender. CARDIOVASCULAR: Regular rate and rhythm without murmurs, gallops, or rubs . No JVD. Peripheral pulses symmetric. Weeping, pitting edema to bilateral lower extremities RESPIRATORY/CHEST: Symmetric, mildly labored respirations. Rhonchi to auscultation. Diminished Breath sounds equal bilaterally. No wheezes. GASTROINTESTINAL: Abdomen soft, non-tender, nondistended. Bowel sounds present. GENITOURINARY: Without palpable bladder distension. Cabrera catheter in place. MUSCULOSKELETAL: Extremities without clubbing. No joint tenderness or effusion noted. No calf tenderness. No mottling. Pitting edema to bilateral lower extremities NEUROLOGICAL: Lethargic, minimal response. Did not follow commands. Withdraws weakly with all 4 extremities. PSYCHIATRIC: Unable to assess, lethargic with very minimal verbal response. . Diagnostic Tests Laboratory Laboratory Tests Test 02/04/17 11:35 02/04/17 12:40 02/04/17 13:00 02/04/17 13:35 White Blood Count 5.4 TH/MM3 (4.0-11.0) Red Blood Count 3.62 MIL/MM3 (4.00-5.30) Hemoglobin 10.8 GM/DL (11.6-15.3) Hematocrit 30.7 % (35.0-46.0) Mean Corpuscular Volume 84.8 FL (80.0-100.0) Mean Corpuscular Hemoglobin 29.8 PG (27.0-34.0) Mean Corpuscular Hemoglobin Concent 35.2 % (32.0-36.0) Red Cell Distribution Width 15.5 % (11.6-17.2) Platelet Count 248 TH/MM3 (150-450) Mean Platelet Volume 6.5 FL (7.0-11.0) Neutrophils (%) (Auto) 91.3 % (16.0-70.0) Lymphocytes (%) (Auto) 3.3 % (9.0-44.0) Monocytes (%) (Auto) 5.1 % (0.0-8.0) Eosinophils (%) (Auto) 0.1 % (0.0-4.0) Basophils (%) (Auto) 0.2 % (0.0-2.0) Neutrophils # (Auto) 5.0 TH/MM3 (1.8-7.7) Lymphocytes # (Auto) 0.2 TH/MM3 (1.0-4.8) Monocytes # (Auto) 0.3 TH/MM3 (0-0.9) Eosinophils # (Auto) 0.0 TH/MM3 (0-0.4) Basophils # (Auto) 0.0 TH/MM3 (0-0.2) CBC Comment DIFF FINAL Differential Comment Prothrombin Time 12.0 SEC (9.8-11.6) Prothromb Time International Ratio 1.2 RATIO Activated Partial Thromboplast Time 28.8 SEC (24.3-30.1) Blood Gas Puncture Site RT RADIAL Blood Gas Patient Temperature 37.0 Blood Gas HCO3 28 mmol/L (22-26) Blood Gas Base Excess 3.0 mmol/L (-2-2) Blood Gas Oxygen Saturation 95 % (90-100) Arterial Blood pH 7.39 (7.380-7.420) Arterial Blood Partial Pressure CO2 46 mmHg (38-42) Arterial Blood Partial Pressure O2 90 mmHG (61-120) Arterial Blood Oxygen Content 15.0 Vol % (12.0-20.0) Arterial Blood Carboxyhemoglobin 1.4 % (0-4) Arterial Blood Methemoglobin 0.3 % (0-2) Blood Gas Hemoglobin 11.2 G/DL (12.0-16.0) Oxygen Delivery Device BIPAP Blood Gas Ventilator Setting EPAP5/IPAP10 Blood Gas Inspired Oxygen 100 % Blood Urea Nitrogen 12 MG/DL (7-18) Creatinine 0.54 MG/DL (0.50-1.00) Random Glucose 182 MG/DL (74-106) Total Protein 6.7 GM/DL (6.4-8.2) Albumin 3.0 GM/DL (3.4-5.0) Calcium Level 9.0 MG/DL (8.5-10.1) Magnesium Level 1.4 MG/DL (1.5-2.5) Alkaline Phosphatase 88 U/L (45-117) Aspartate Amino Transf (AST/SGOT) 17 U/L (15-37) Alanine Aminotransferase (ALT/SGPT) 17 U/L (10-53) Total Bilirubin 1.6 MG/DL (0.2-1.0) Sodium Level 118 MEQ/L (136-145) Potassium Level 3.8 MEQ/L (3.5-5.1) Chloride Level 81 MEQ/L (98-107) Carbon Dioxide Level 25.2 MEQ/L (21.0-32.0) Anion Gap 12 MEQ/L (5-15) Estimat Glomerular Filtration Rate 111 ML/MIN (>89) Total Creatine Kinase 71 U/L (26-192) Troponin I LESS THAN 0.02 NG/ML B-Type Natriuretic Peptide 82 PG/ML (0-100) Urine Color LIGHT-YELLOW (YELLW/STRAW) Urine Turbidity CLEAR (CLEAR) Urine pH 5.0 (5.0-8.5) Urine Specific [place] 1.006 (1.002-1.035) Urine Protein NEG mg/dL (NEG-TRACE) Urine Glucose (UA) NEG mg/dL (NEG) Urine Ketones NEG mg/dL (NEG) Urine Occult Blood NEG (NEG) Urine Nitrite NEG (NEG) Urine Bilirubin NEG (NEG) Urine Urobilinogen LESS THAN 2.0 MG/DL (LESS Urine Leukocyte Esterase NEG (NEG) Urine RBC 1 /hpf (0-3) Urine Squamous Epithelial Cells 1 /hpf (0-5) Urine Hyaline Casts 7 /lpf (RARE) Urine Mucus FEW /lpf (OCC) Microscopic Urinalysis Comment CULT NOT INDICATED Lactic Acid Level 1.8 mmol/L (0.4-2.0) Nasal Screen MRSA (PCR) MRSA NOT DETECTED (NOT Test 02/04/17 19:45 02/04/17 19:53 02/05/17 07:05 Urine Osmolality 329 MOSM/KG (300-1300) Urine Random Sodium 72 MEQ/L D-Dimer Quantitative (PE/DVT) 1.65 MG/L FEU (0.00-0.50) Blood Urea Nitrogen 12 MG/DL (7-18) 14 MG/DL (7-18) Creatinine 0.42 MG/DL (0.50-1.00) 0.51 MG/DL (0.50-1.00) Random Glucose 85 MG/DL (74-106) 92 MG/DL (74-106) Calcium Level 8.5 MG/DL (8.5-10.1) 8.4 MG/DL (8.5-10.1) Sodium Level 122 MEQ/L (136-145) 122 MEQ/L (136-145) Potassium Level 3.1 MEQ/L (3.5-5.1) 3.1 MEQ/L (3.5-5.1) Chloride Level 82 MEQ/L (98-107) 84 MEQ/L (98-107) Carbon Dioxide Level 29.7 MEQ/L (21.0-32.0) 28.2 MEQ/L (21.0-32.0) Anion Gap 10 MEQ/L (5-15) 10 MEQ/L (5-15) Estimat Glomerular Filtration Rate 149 ML/MIN (>89) 119 ML/MIN (>89) Serum Osmolality 263 MOSM/KG (275-295) Thyroid Stimulating Hormone 3rd Gen 0.691 uIU/ML (0.358-3.740) White Blood Count 4.4 TH/MM3 (4.0-11.0) Red Blood Count 3.14 MIL/MM3 (4.00-5.30) Hemoglobin 9.9 GM/DL (11.6-15.3) Hematocrit 27.8 % (35.0-46.0) Mean Corpuscular Volume 88.5 FL (80.0-100.0) Mean Corpuscular Hemoglobin 31.6 PG (27.0-34.0) Mean Corpuscular Hemoglobin Concent 35.7 % (32.0-36.0) Red Cell Distribution Width 15.9 % (11.6-17.2) Platelet Count 140 TH/MM3 (150-450) Mean Platelet Volume 6.8 FL (7.0-11.0) CBC Comment AUTO DIFF Differential Total Cells Counted 100 Neutrophils % (Manual) 31 % (16-70) Band Neutrophils % 42 % (0-6) Lymphocytes % 5 % (9-44) Monocytes % 6 % (0-8) Neutrophils # (Manual) 3.9 TH/MM3 (1.8-7.7) Metamyelocytes 16 % (0-1) Differential Comment FINAL DIFF MANUAL Toxic Granulation 1+ (NORMAL) Toxic Vacuolation PRESENT (NONE SEEN) Platelet Estimate LOW (NORMAL) Platelet Morphology Comment NORMAL (NORMAL) Ovalocytes 1+ (NORMAL) Acanthocytes OCC (NORMAL) Total Protein 6.5 GM/DL (6.4-8.2) Albumin 2.6 GM/DL (3.4-5.0) Alkaline Phosphatase 76 U/L (45-117) Aspartate Amino Transf (AST/SGOT) 19 U/L (15-37) Alanine Aminotransferase (ALT/SGPT) 14 U/L (10-53) Total Bilirubin 1.1 MG/DL (0.2-1.0) Random Cortisol 99.6 MCG/DL Result Diagram: 02/05/17 0705 02/05/17 0705 Microbiology Microbiology Date/Time Source Procedure Growth Status 02/04/17 11:35 Blood Peripheral Aerobic Blood Culture - Preliminary NO GROWTH IN 1 DAY Resulted 02/04/17 11:35 Blood Peripheral Anaerobic Blood Culture - Preliminary NO GROWTH IN 1 DAY Resulted 02/04/17 11:20 Blood Peripheral Aerobic Blood Culture - Preliminary NO GROWTH IN 1 DAY Resulted 02/04/17 11:20 Blood Peripheral Anaerobic Blood Culture - Preliminary NO GROWTH IN 1 DAY Resulted Imaging Last 24 hours Impressions Chest X-Ray 02/05/17 0600 Signed Impressions: Service Date/Time: , February 05, 2017 04:25 - CONCLUSION: Patchy infiltrate is now present in both medial lung bases. Caesar Ramos MD Assessment and Plan Disease Oriented Problem List: (1) Sepsis (2) Hyponatremia (3) Pneumonia (4) Hypoxia Symptom Scale: (1) Shortness of breath Comment: Multifactorial. Patient has had multiple hospitalizations for shortness of breath/pneumonia. Mild respiratory distress. Now on 3 L nasal cannula. O2 saturation high 90s. . (2) Decreased oral intake Comment: History of dysphagia status post dilatation. Patient was currently on pured diet in correction. His lost approximately 25 pounds in 2 months. . (3) Debility Comment: Progressive. Patient has had prolonged hospitalization in 4 different facilities since November 2016. Since November she has been hospitalized approximately 5 times. Patient was [facility] a pen[facility] facility. Patient has also lost weight significantly. Has not been able to participate in physical therapy due to her illness. Patient remains at high risk for deterioration if she continues to have shortness of breath, which will limit her participation in physical therapy. Patient may benefit from physical therapy. . Pertinent Non-Medical Issues Psychosocial: Spiritual: Legal: Ethical issues impacting care: Important Contacts Granddaughter-[facility]- Connie Cotton- [phone] Alternate [facility]- Freddy Cotton [phone] . Prognosis Mrs Knapp is a 71 years old female with a past medical history of colon cancer, esophageal strictures, pneumonia and anxiety. Patient has had multiple hospitalizations for persistent pneumonia, hyponatremia and dysphagia. She was recently discharged from [facility] to a penitentiary facility. Patient presented via EMS to [facility] on 02/04/17 after she was found slumped over, with cyanosis of limbs and in respiratory distress at [facility]. Patient`s O2 saturation were in the 80s. Given ongoing comorbidities and recent multiple hospitalizations, patient remains at high risk for complications, deterioration in decline. . Code Status: Full Code Plan PLAN: Legal decision maker: Patient does not appear to have clear understanding and insight of her clinical condition. Recommending joint decision making with her granddaughter Connie Cotton. Her alternate HCS- Freddy Cotton. Goals: 02/05/17 Remain aggressive. Patient going for G-tube placement by interventional radiology today. CODE STATUS: Full code SYMPTOMS: * Shortness of breath:Multifactorial. Patient has had multiple hospitalizations for shortness of breath/pneumonia. Chest x-ray revealed a space infiltrate in right base, with possible small effusion. Mild respiratory distress noted. Patient now on 3 L nasal cannula humidified O2 saturating high 90s. Received antibiotics in the ER. Patient is on DuoNeb nebs * Decreased oral intake:History of dysphagia status post dilatation. Patient was currently on pured diet in correction. She lost approximately 25 pounds in 2 months. Recommending swallowing evaluation by speech therapy. Patient failed swallow evaluation today. GI consulted. NG tube attempted to be placed at bedside but unsuccessful. Patient going to interventional radiology for G- tube placement. . * Debility:Progressive. Patient has had prolonged hospitalization in 4 different facilities since November 2016. Since November she has been hospitalized approximately 5 times. Patient was discharged recently into a penitentiary facility. Patient has also lost weight significantly. Has not been able to participate in physical therapy due to her illness. Patient remains at high risk for deterioration if she continues to have shortness of breath, which will limit her participation in physical therapy. Patient may benefit from physical therapy. Palliative care will continue to follow the patient during hospital course as condition evolves, to assist patient/decision-maker with understanding of their medical conditions, weighing benefits/burdens of treatment options, for clarification of goals of treatment. Additionally will assist with any symptoms of palliative concern. . Attestation To help prompt me to consider important information that might be impacting today's encounter and assessment, information from prior notes written by myself or my colleagues may have been "brought forward" into today's note. My signature on this note, however, is an attestation that I personally performed the exam, history, and/or decision-making noted today, and, unless otherwise indicated, the interactions with patient, family, and staff as well as the review of records all occurred today. I also attest that the listed assessment and stated plan reflect my best clinical judgment today based on the combination of historical information, prior notes, and today's exam/ interactions. When time spent is documented, it refers only to time spent today by the signer, or if indicated, combined time spent today by collaborating physician/nurse practitioner. . Julianne More Feb 05, 2017 15:30
--- NOTE | 2017-02-05 16:31 | PD.RAD ---
Post Procedure Progress Note Pre Procedure Diagnosis: (1) Failure to thrive in adult Post Procedure Diagnosis: (1) Failure to thrive in adult Procedure Date: Feb 05, 2017 Supervising Radiologist: Jorje Josue Proceduralist/Assist: Ness Morataya, RT(R), Caryn Peterson RT(R)(CV) Anesthesia: Conscious Sedation Plan of Activity Patient to Unit: [facility] Patient Condition: Good See PACS Report for procedural detail/treatment Jorje Josue MD Feb 05, 2017 16:31
[2017-02-05] MEDS ORDERED: IOHEXOL 350 MG/ML 50 ML BTL (for Cath Lab) G-TUBE ONE (16:37)
--- NOTE | 2017-02-05 16:51 | RADRPT ---
EXAM DATE/TIME: 02/05/2017 16:47 [facility] COMPARISON: No previous studies available for comparison. INDICATIONS : Patient with a history of failure to thrive. MEDICAL HISTORY : Pneumonia Esophageal stricture Failure to thrive SURGICAL HISTORY : Surgery for colon carcinoma ENCOUNTER: Initial ACUITY: 4-6 days PAIN SCORE: Nonresponsive. FLUORO TIME: 3.6 minutes IMAGE SERIES: 1 SEDATION TIME: 30 minutes CONTRAST: 20 cc Omnipaque (iohexol) 350 MEDICATION(S): 1.) 25 mcg fentanyl (Sublimaze) IV 2.) 0.25 mg lorazepam (Ativan) IV 3.) 1 mg glucagon (Gluca-Gen) IV DEVICE(S): 1.) 18 Fr gastrostomy tube PROCEDURE : 1. Limited abdominal ultrasound. 2. Fluoroscopically guided gastrostomy tube placement. 3. Conscious sedation with continuous EKG and oximetry monitoring. The risks, benefits and alternatives to the procedure were explained and verbal and written consent w as obtained. The site was prepped in sterile fashion. Full sterile technique was used, including ca p, mask, sterile gloves and gown and a large sterile sheet. Hand hygiene and 2% chlorhexidine and/or betadine/alcohol prep was utilized per protocol for cutaneous antisepsis. The skin and subcutaneous tissues were infiltrated with local anesthetic solution. Sterile gel and sterile probe cover were u tilized for ultrasound guidance. Ultrasound was used to alejandro the position of the liver. The stomach was insufflated with room air. Th ree percutaneous fasteners were placed to secure the anterior gastric wall. A small incision was made between the fasteners. The stomach was accessed with an 18 gauge needle. A n 0.035 wire was advanced into the small bowel. The tract was dilated. The gastrostomy tube was int roduced through a peel-away sheath. The position was confirmed with an injection of contrast. Conscious sedation was performed with the prescribed dosages and duration as above in the presence of an independent trained radiology nurse to assist in the monitoring of the patient. EKG and oximetry remained stable throughout the procedure. The patient tolerated the procedure well and there were n o complications. The patient was sent to post anesthesia recovery in stable condition. CONCLUSION: Uncomplicated gastrostomy tube placement as above. Jorje Josue MD on February 05, 2017 at 16:49 Board Certified Radiologist. This report was verified electronically.
[2017-02-05] MEDS ORDERED: CONIVAPTAN IV SCH (17:30)
--- NOTE | 2017-02-05 17:42 | HHI.NPPN ---
Subjective History of Present Illness This patient is a 71-year-old female with a history of recurrent pneumonia, hyponatremia, see of the colon with previous resection and by history apparent failure to thrive with progressive weight loss. Mention of recent hospitalization at [facility] with pneumonia and hyponatremia. Records are not presently available to me. Patient subsequently according to the records I reviewed was admitted at [facility] 2 electrolyte abnormalities again records are not available. Now presents from a residential with a history of shortness of breath and altered mental status. Chest x-ray indicating Changes consistent with pneumonia and serum sodium level was 118. Patient's nutritional intake continues to be poor by history with progressive weight loss. Interval History Patient seen status post G-tube placement. Granddaughter by bedside. She indicated that workup at [facility] suggested hyponatremia was related to her grandmother's poor nutritional status. Objective Data Data 02/05/17 02/06/17 19:00 07:00 Intake Total 1501 ml Balance 1501 ml Intake IV Total 1501 ml Vital Signs Date Time Temp Pulse Resp B/P (MAP) Pulse Ox O2 Delivery O2 Flow Rate FiO2 02/05/17 11:00 97 20 127/58 (81) 96 02/05/17 11:00 97 02/05/17 10:00 96 18 110/58 (75) 100 02/05/17 10:00 96 02/05/17 09:00 104 25 119/58 (78) 98 02/05/17 09:00 104 02/05/17 08:26 95 Nasal Cannula 4.00 02/05/17 08:00 98.4 90 24 111/59 (76) 98 02/05/17 08:00 90 02/05/17 07:00 99 35 120/57 (78) 92 02/05/17 07:00 99 02/05/17 06:38 98 50 02/05/17 06:00 111 02/05/17 06:00 111 36 143/81 (101) 78 02/05/17 05:00 83 56 123/56 (78) 100 02/05/17 04:00 98.6 85 27 111/57 (75) 100 02/05/17 04:00 85 02/05/17 03:00 100 26 122/64 (83) 100 02/05/17 02:00 86 02/05/17 02:00 86 19 119/60 (79) 100 02/05/17 01:00 96 17 95/53 (67) 99 02/05/17 00:00 98.8 100 36 142/72 (95) 97 02/05/17 00:00 100 02/04/17 23:00 85 34 154/72 (99) 100 02/04/17 22:00 89 35 134/66 (88) 100 02/04/17 22:00 89 02/04/17 21:00 124 40 155/97 (116) 95 02/04/17 20:00 123 02/04/17 20:00 99.3 123 35 159/85 (109) 96 02/04/17 19:00 129 36 156/98 (117) 96 02/04/17 18:37 02/04/17 17:45 98 Non-Rebreather 15.00 -: 02/05/17 0705 02/05/17 0705 Physical Exam General Appearance: No Acute Distress, Malnourished Eyes Eye Exam: Sclera White Pulmonary Resp Exam: Clear Bilaterally, Breath Sounds Equal, No Distress Cardiology CV Exam: Regular, Normal Sinus Rhythm Integumentary Skin Exam: Clear, Warm, Dry Extremeties Extremities Exam: Trace Edema Neurologic Neuro Exam: Stuporous Assessment/Plan Problem List: (1) Hyponatremia ICD Codes: E87.1 - Hypo-osmolality and hyponatremia Status: Acute Plan: Patient's urine osmolality inappropriately elevated for serum sodium level indicating impaired free water clearance. Probable acute on chronic give medical history of previous episodes. Etiology most likely multifactorial secondary to poor nutritional intake resulting in a paucity of osmoles required for free water clearance , hypoalbuminemia as well as pneumonia which can be associated with SIADH. Serum sodium level slightly improved. Will add conivaptan to try and expedite improvement of sodium level with monitoring. Will not administer loading dose for the present. Also improvement in the patient's nutritional status should improve patient's free water clearance and hyponatremia. I will review records from [facility] when available. (2) Failure to thrive in adult ICD Codes: R62.7 - Adult failure to thrive Plan: Clinical history strongly suggestive of failure to thrive with progressive weight loss and patient appears to be emaciated. Etiology of this is uncertain. Apparently she has been admitted to 3 institutions recently prior to being admitted here. Defer to in house primary care physician in regard to evaluating this further. Given the patient's current clinical status prognosis is guarded. (3) Pneumonia ICD Codes: J18.9 - Pneumonia, unspecified organism Status: Acute Plan: Management per critical care. Gloria Estes MD Feb 05, 2017 17:42
[2017-02-05] MEDS ORDERED: TOLVAPTAN 15 MG TAB PO ONE (19:15)
[2017-02-05] MEDS: LEVOFLOXACIN 750 MG PREMIX INJ 150 ML IV SCH (19:48)
[2017-02-05] MEDS: ENOXAPARIN SODIUM 40 MG/0.4 ML SYRINGE SQ SCH (19:48)
--- NOTE | 2017-02-05 19:54 | HHI.CCPN ---
Subjective Remarks/Hospital Course 02/04: 71-year-old female with a medical history significant for colon cancer in 2003 for which she underwent partial colon resection and chemotherapy, esophageal stricture with significant weight loss due to poor by mouth intake for which she was hospitalized in [place] in November 2016 for 2 weeks treated for pneumonia and subsequently evaluated for dysphagia and was found to have a sufficient stricture for which she was transferred to [facility] in [place] and underwent esophageal dilatation and was subsequently discharged 2 weeks later on a pured diet. Patient moved to [place] with her granddaughter and a few beats VAC was admitted to [facility] [place] for worsening shortness of breath and was diagnosed with a pneumonia, hyponatremia. She was treated with antibiotics and subsequently discharged home however the following day had to be readmitted at [facility] for unresolved shortness of breath where she was hospitalized for a week and subsequently discharged to shelter 3 days prior to this admission. Patient's by mouth intake has been poor since her discharge 3 days back according to her granddaughter as the pured diet at the shelter is to take. Patient was found to have altered mental status today and was found slumped to one side with poor respirations. EMS was called and patient was noted to have O2 sats in the 60s. She was transported to the emergency room where she was placed on BiPAP for respiratory distress with hypoxic respiratory failure. She was also noted to be hypertensive on arrival with systolic blood pressure in the 200s. Patient was also found to have a sodium of 118. I was contacted by ER physician and accepted patient for admission to the ICU. When I evaluated the patient in the ER she was on BiPAP with full facemask. History was obtained by discussion with patient's granddaughter was at the bedside. Patient was much more awake at this time and trying to communicate however in view of BiPAP requirement was difficult to communicate with. She denied any chest pain at the time. Patient has chronic diarrhea since her colon surgery in 2003. Per the granddaughter she was doing well till about 3 months ago when she started having significant weight loss and poor by mouth intake possibly related to esophageal stricture and the fact that she was taking care of her sick family member at home. She has been advised a PEG tube per the granddaughter because of her poor nutritional status and poor by mouth intake. She has had problems with hyponatremia off and on for a while. Patient's granddaughter is very concerned about her poor nutritional status. 02/05: Tolerating nasal cannula. Underwent PEG tube placement by IR today. Sodium 122. Objective Vital Signs Date Time Temp Pulse Resp B/P (MAP) Pulse Ox O2 Delivery O2 Flow Rate FiO2 02/05/17 11:00 97 20 127/58 (81) 96 02/05/17 08:26 Nasal Cannula 4.00 02/05/17 08:00 98.4 02/05/17 06:38 50 Intake and Output 02/05/17 02/05/17 02/06/17 08:00 16:00 00:00 Intake Total 250 ml 1501 ml Output Total 800 ml Balance -550 ml 1501 ml Result Diagram: 02/05/17 0705 02/05/17 0705 Imaging Last Impressions Chest X-Ray 02/04/17 1052 Signed Impressions: Service Date/Time: Saturday, February 04, 2017 11:14 - CONCLUSION: 1. Airspace infiltrate in the medial right base characteristic of a pneumonic process. This probably explains current clinical symptoms. 2. Some blunting of the left costophrenic angle may represent a small effusion. Left lung is otherwise clear. Nura Cook MD Objective Remarks Elderly female appears cachectic, laying in ICU bed on nasal cannula not in any acute distress. HEENT/Neuro: Pallor present, no icterus, tongue moist, ZEKE, Awake alert oriented 3, nonfocal grossly, moving all 4 extremities Neck: No JVD Chest/pulmonary: On BiPAP with full facemask, good air entry bilaterally, scattered rhonchi, no wheezing Cardiovascular: S1-S2 regular no gallop or murmur GI/abdomen: Soft, nontender, bowel sounds present Extremities: Warm bilaterally, no edema A/P Assessment and Plan 71-year-old female with: Encephalopathy Acute respiratory failure Probable recurrent aspiration pneumonia (prehospital) Failure to thrive Hyponatremia Chronic diarrhea History of esophageal stricture status post recent esophageal dilation History of colon cancer Lower extremity edema Plan: Neuro: Follow neuro status. Avoid sedatives and narcotics. Head CT negative for bleed. Cardiovascular: IV hydration, labetalol when necessary for hypertension. BNP not elevated. EKG unremarkable Pulmonary: Off BiPAP, tolerating nasal cannula, bronchodilators as needed. CT chest with no evidence of PE and shows bibasilar infiltrates concerning for recurrent aspiration pneumonia GI/liver: NPO. Consulted GI for PEG tube placement and further evaluation of esophageal stricture. Patient seen by GI today and IR placed PEG tube. Will start tube feeds via PEG tube tomorrow. Renal/: Continue normal saline with KCl. Follow serial sodium levels. TSH normal and cortisol levels elevated. Suspect hyponatremia secondary to chronic diarrhea and poor by mouth intake. Nephrology consult requested for further evaluation. Started on conivaptan per nephrology. ID: Question of aspiration in view of history of esophageal dilation secondary to esophageal stricture and altered mental status with right sided infiltrate on chest x-ray. Follow-up blood cultures. Empiric antibiotic coverage with IV Levaquin and Flagyl. Check pro calcitonin. Endocrine: Watch for hyperglycemia, SSI for glycemic control if needed. Heme-onc: Follow CBC and coags. Will obtain medical records from recent hospitalizations prior to initiating any further workup for weight loss. Prophylaxis: Pepcid/SCDs. Subcutaneous Lovenox. Discussed at length with patient's granddaughter at bedside. She wishes to continue aggressive care at this time Her eventual plan is to get the patient back to [place] with the rest of the family. Palliative care consulted to assist with deciding goals of therapy in view of significant weight loss with failure to thrive and recurrent hospitalizations with rapid decline in functional status. If sodium level improves in a.m. consider transfer to hospitalist service and transfer out of ICU. Discussed with patient's granddaughter this morning. Discussed with GI earlier. Carl Nieto MD Feb 05, 2017 19:54
[2017-02-05 21:23] LABS: BICARBONATE 27.8 MEQ/L (21.0-32.0); CALCIUM 8.3 MG/DL (8.5-10.1); CREATININE 0.46 MG/DL (0.50-1.00)
[2017-02-06] VITALS (31 sets, daily range): BP systolic 105–162; BP diastolic 53–103; PULSE 97–122; RESP 15–39; TEMP 98–98.7; O2SAT 94–100
[2017-02-06] MEDS: CHLORHEXIDINE GLUCONATE 2 % 1 PACK (2 CLOTHS) TOP SCH (04:00)
[2017-02-06] MEDS: RESP: ALBUTEROL 2.5 MG/IPRATROPIUM 0.5 MG NEB (SCH) NEB ×4 (04:23→20:18)
[2017-02-06] MEDS: metroNIDAZOLE 500 MG INJ 100 ML IV SCH ×3 (05:19→20:00)
[2017-02-06] MEDS: INSULIN ASPART SUPPLEMENTAL SCALE SQ SCH ×4 (05:24→19:20)
[2017-02-06 07:14] LABS: BICARBONATE 31.4 MEQ/L (21.0-32.0); CALCIUM 8.3 MG/DL (8.5-10.1); CREATININE 0.4 MG/DL (0.50-1.00); MAGNESIUM 1.6 MG/DL (1.5-2.5)
[2017-02-06] MEDS: CHLORHEXIDINE 0.12% (ORAL KIT) 15 ML CUP MT SCH ×2 (08:00→20:00)
[2017-02-06] MEDS: PANTOPRAZOLE SODIUM 40 MG VIAL IV PUSH SCH (09:00)
[2017-02-06] MEDS: SODIUM CHLORIDE 0.9% FLUSH 10 ML FLUSH IV FLUSH SCH ×2 (09:00→21:00)
[2017-02-06] MEDS ORDERED: PNEUMOCOCCAL POLYVALENT INJ 25 MCG/0.5 ML SYR IM ONE (10:00)
[2017-02-06] MEDS ORDERED: INFLUENZA VIRUS VACCINE (QUADRIVALENT) 0.5 ML SYR IM ONE (10:00)
--- NOTE | 2017-02-06 10:51 | HHI.HCPN ---
Reason for visit a. To assist with evaluation and management of symptoms including:shortness of breath, decreased oral intake, debility b. To assist medical decision maker(s) with: better understanding of current medical conditions; weighing benefits/burdens of medical treatment options; making medical treatment decisions. Subjective/Interval History Patient seen and examined in her room. Lethargic with minimal verbal response- very soft and weak voice. Denies pain - requesting to be repositioned to her back. Patient`s daughter from [place] at bedside. Explained to patient that she was just repositioned and we are trying to prevent pressure ulcers. Patient tolerating O2 4L NC, saturating in the high 90s. Mild respiratory distress. Laboratory workup today revealing sodium 131, potassium 3.7, BUN/ creatinine today 13/0.41. No recent imaging. Patient had gastronomy tube placed by interventional radiology yesterday. Currently Jevity 1.5 infusing at 20ml/ hr. Updated patient`s daughter Flor Bennett on patient`s medical status. Patients daughter stated that patient has been having dysphagia problems over a long period of time. Patient`s daughter does not recall patient been ever told that she had a thyroid nodule. Patient`s daughter endorses that patient has had a decline since November otherwise she was independent, living alone and assisting taking care of her mother. Explained to patient`s daughter, that patient may continue to decline and may not be able to return to her baseline. Encouraged her to keep addressing patient`s wishes and what she would consider as quality of life while she is still able to speak for herself. Patient`s daughter verbalizes importance of discussing such issues and appreciative of visit. Obtained daughter`s contact information. Family/friend interactions Patient`s daughter Flor Bennett [phone] . Advance Directives Living Will: Never completed Health Care Surrogate: Copy in medical record Advance Directive Specifics Date completed: December 19, 2016 . Health Care Surrogate(s): Granddaughter-[facility]- Connie Dixonaley- [phone] Alternate [facility]- Freddy Dixonaley [phone] . Objective Vital Signs Date Time Temp Pulse Resp B/P (MAP) Pulse Ox O2 Delivery O2 Flow Rate FiO2 02/06/17 09:00 104 27 107/53 (71) 100 02/06/17 09:00 104 02/06/17 08:39 100 Nasal Cannula 4.00 02/06/17 08:00 106 02/06/17 08:00 98.4 106 26 125/62 (83) 100 02/06/17 07:15 108 02/06/17 07:15 98 24 100 02/06/17 07:00 97 34 125/61 (82) 100 02/06/17 06:00 108 39 105/58 (74) 100 02/06/17 06:00 108 02/06/17 05:00 98 17 113/56 (75) 100 02/06/17 04:00 97 02/06/17 04:00 98.7 97 16 122/59 (80) 100 02/06/17 03:00 98 15 109/59 (76) 100 02/06/17 02:00 97 21 124/58 (80) 100 02/06/17 02:00 97 02/06/17 01:00 98.5 101 23 116/56 (76) 100 02/06/17 00:00 101 16 107/53 (71) 100 02/06/17 00:00 101 02/05/17 23:00 112 30 127/65 (85) 99 02/05/17 22:00 106 16 107/53 (71) 100 02/05/17 22:00 103 02/05/17 21:00 104 23 137/63 (87) 100 02/05/17 20:31 100 Nasal Cannula 4.00 02/05/17 20:00 94 02/05/17 20:00 98.8 95 19 128/60 (82) 100 02/05/17 19:00 97 22 137/64 (88) 100 02/05/17 18:00 93 02/05/17 18:00 93 19 123/58 (79) 100 02/05/17 17:29 97 02/05/17 17:29 97 23 138/62 (87) 96 02/05/17 17:28 101 02/05/17 17:28 101 27 184/67 (106) 94 02/05/17 17:00 98.4 92 20 85 02/05/17 17:00 92 02/05/17 16:16 124/60 (81) 02/05/17 15:00 96 35 99 02/05/17 15:00 96 02/05/17 14:00 102 02/05/17 14:00 102 29 157/74 (101) 97 02/05/17 13:01 97 02/05/17 13:01 97 26 132/63 (86) 100 02/05/17 13:00 93 28 100 02/05/17 13:00 93 02/05/17 12:00 92 31 106/55 (72) 100 02/05/17 12:00 92 02/05/17 11:00 97 20 127/58 (81) 96 02/05/17 11:00 97 Intake & Output 02/06/17 02/06/17 07:00 19:00 Intake Total 920 ml Output Total 875 ml Balance 45 ml Intake IV Total 920 ml Output Urine Total 875 ml # Bowel Movements 0 Physical Exam CONSTITUTIONAL/GENERAL: This is a cachectic, ill-looking elderly patient, appears older than stated age, lethargic, weak with minimal verbal response TUBES/LINES/DRAINS: Nasal cannula, Cabrera catheter, PIV SKIN: No jaundice. Ecchymoses on upper extremities-B2 skin tear to left elbow. Skin temperature appropriate. Not diaphoretic. HEAD: Atraumatic. Normocephalic. EYES: Pupils equal and round and reactive. Extraocular motions intact. No scleral icterus. No injection or drainage. Fundi not examined. ENT: Hearing grossly normal. Nose without bleeding or purulent drainage. NECK: Trachea midline. Supple, nontender. CARDIOVASCULAR: Regular rate and rhythm without murmurs, gallops, or rubs . No JVD. Peripheral pulses symmetric. Weeping, pitting edema to bilateral lower extremities RESPIRATORY/CHEST: Symmetric, mildly labored respirations. Rhonchi to auscultation. Diminished Breath sounds equal bilaterally. No wheezes. GASTROINTESTINAL: Abdomen soft, non-tender, nondistended. Bowel sounds present. PEG tube- Jevity 1.5 infusing GENITOURINARY: Without palpable bladder distension. Cabrera catheter in place. MUSCULOSKELETAL: Extremities without clubbing. No joint tenderness or effusion noted. No calf tenderness. No mottling. Pitting edema to bilateral lower extremities NEUROLOGICAL: Lethargic, minimal response. Did not follow commands, slowly moves spontaneously. Withdraws weakly with all 4 extremities. PSYCHIATRIC: Unable to assess, lethargic with very minimal verbal response. . Diagnostic Tests Laboratory Laboratory Tests Test 02/04/17 11:35 12/6/17 12:40 02/04/17 13:00 02/04/17 13:35 White Blood Count 5.4 TH/MM3 (4.0-11.0) Red Blood Count 3.62 MIL/MM3 (4.00-5.30) Hemoglobin 10.8 GM/DL (11.6-15.3) Hematocrit 30.7 % (35.0-46.0) Mean Corpuscular Volume 84.8 FL (80.0-100.0) Mean Corpuscular Hemoglobin 29.8 PG (27.0-34.0) Mean Corpuscular Hemoglobin Concent 35.2 % (32.0-36.0) Red Cell Distribution Width 15.5 % (11.6-17.2) Platelet Count 248 TH/MM3 (150-450) Mean Platelet Volume 6.5 FL (7.0-11.0) Neutrophils (%) (Auto) 91.3 % (16.0-70.0) Lymphocytes (%) (Auto) 3.3 % (9.0-44.0) Monocytes (%) (Auto) 5.1 % (0.0-8.0) Eosinophils (%) (Auto) 0.1 % (0.0-4.0) Basophils (%) (Auto) 0.2 % (0.0-2.0) Neutrophils # (Auto) 5.0 TH/MM3 (1.8-7.7) Lymphocytes # (Auto) 0.2 TH/MM3 (1.0-4.8) Monocytes # (Auto) 0.3 TH/MM3 (0-0.9) Eosinophils # (Auto) 0.0 TH/MM3 (0-0.4) Basophils # (Auto) 0.0 TH/MM3 (0-0.2) CBC Comment DIFF FINAL Differential Comment Prothrombin Time 12.0 SEC (9.8-11.6) Prothromb Time International Ratio 1.2 RATIO Activated Partial Thromboplast Time 28.8 SEC (24.3-30.1) Blood Gas Puncture Site RT RADIAL Blood Gas Patient Temperature 37.0 Blood Gas HCO3 28 mmol/L (22-26) Blood Gas Base Excess 3.0 mmol/L (-2-2) Blood Gas Oxygen Saturation 95 % (90-100) Arterial Blood pH 7.39 (7.380-7.420) Arterial Blood Partial Pressure CO2 46 mmHg (38-42) Arterial Blood Partial Pressure O2 90 mmHG (61-120) Arterial Blood Oxygen Content 15.0 Vol % (12.0-20.0) Arterial Blood Carboxyhemoglobin 1.4 % (0-4) Arterial Blood Methemoglobin 0.3 % (0-2) Blood Gas Hemoglobin 11.2 G/DL (12.0-16.0) Oxygen Delivery Device BIPAP Blood Gas Ventilator Setting EPAP5/IPAP10 Blood Gas Inspired Oxygen 100 % Blood Urea Nitrogen 12 MG/DL (7-18) Creatinine 0.54 MG/DL (0.50-1.00) Random Glucose 182 MG/DL (74-106) Total Protein 6.7 GM/DL (6.4-8.2) Albumin 3.0 GM/DL (3.4-5.0) Calcium Level 9.0 MG/DL (8.5-10.1) Magnesium Level 1.4 MG/DL (1.5-2.5) Alkaline Phosphatase 88 U/L (45-117) Aspartate Amino Transf (AST/SGOT) 17 U/L (15-37) Alanine Aminotransferase (ALT/SGPT) 17 U/L (10-53) Total Bilirubin 1.6 MG/DL (0.2-1.0) Sodium Level 118 MEQ/L (136-145) Potassium Level 3.8 MEQ/L (3.5-5.1) Chloride Level 81 MEQ/L (98-107) Carbon Dioxide Level 25.2 MEQ/L (21.0-32.0) Anion Gap 12 MEQ/L (5-15) Estimat Glomerular Filtration Rate 111 ML/MIN (>89) Total Creatine Kinase 71 U/L (26-192) Troponin I LESS THAN 0.02 NG/ML B-Type Natriuretic Peptide 82 PG/ML (0-100) Urine Color LIGHT-YELLOW (YELLW/STRAW) Urine Turbidity CLEAR (CLEAR) Urine pH 5.0 (5.0-8.5) Urine Specific [place] 1.006 (1.002-1.035) Urine Protein NEG mg/dL (NEG-TRACE) Urine Glucose (UA) NEG mg/dL (NEG) Urine Ketones NEG mg/dL (NEG) Urine Occult Blood NEG (NEG) Urine Nitrite NEG (NEG) Urine Bilirubin NEG (NEG) Urine Urobilinogen LESS THAN 2.0 MG/DL (LESS Urine Leukocyte Esterase NEG (NEG) Urine RBC 1 /hpf (0-3) Urine Squamous Epithelial Cells 1 /hpf (0-5) Urine Hyaline Casts 7 /lpf (RARE) Urine Mucus FEW /lpf (OCC) Microscopic Urinalysis Comment CULT NOT INDICATED Lactic Acid Level 1.8 mmol/L (0.4-2.0) Nasal Screen MRSA (PCR) MRSA NOT DETECTED (NOT Test 02/04/17 19:45 02/04/17 19:53 02/05/17 07:05 02/05/17 20:24 Urine Osmolality 329 MOSM/KG (300-1300) Urine Random Sodium 72 MEQ/L D-Dimer Quantitative (PE/DVT) 1.65 MG/L FEU (0.00-0.50) Blood Urea Nitrogen 12 MG/DL (7-18) 14 MG/DL (7-18) 17 MG/DL (7-18) Creatinine 0.42 MG/DL (0.50-1.00) 0.51 MG/DL (0.50-1.00) 0.46 MG/DL (0.50-1.00) Random Glucose 85 MG/DL (74-106) 92 MG/DL (74-106) 92 MG/DL (74-106) Calcium Level 8.5 MG/DL (8.5-10.1) 8.4 MG/DL (8.5-10.1) 8.3 MG/DL (8.5-10.1) Sodium Level 122 MEQ/L (136-145) 122 MEQ/L (136-145) 129 MEQ/L (136-145) Potassium Level 3.1 MEQ/L (3.5-5.1) 3.1 MEQ/L (3.5-5.1) 3.3 MEQ/L (3.5-5.1) Chloride Level 82 MEQ/L (98-107) 84 MEQ/L (98-107) 90 MEQ/L (98-107) Carbon Dioxide Level 29.7 MEQ/L (21.0-32.0) 28.2 MEQ/L (21.0-32.0) 27.8 MEQ/L (21.0-32.0) Anion Gap 10 MEQ/L (5-15) 10 MEQ/L (5-15) 11 MEQ/L (5-15) Estimat Glomerular Filtration Rate 149 ML/MIN (>89) 119 ML/MIN (>89) 134 ML/MIN (>89) Serum Osmolality 263 MOSM/KG (275-295) Thyroid Stimulating Hormone 3rd Gen 0.691 uIU/ML (0.358-3.740) White Blood Count 4.4 TH/MM3 (4.0-11.0) Red Blood Count 3.14 MIL/MM3 (4.00-5.30) Hemoglobin 9.9 GM/DL (11.6-15.3) Hematocrit 27.8 % (35.0-46.0) Mean Corpuscular Volume 88.5 FL (80.0-100.0) Mean Corpuscular Hemoglobin 31.6 PG (27.0-34.0) Mean Corpuscular Hemoglobin Concent 35.7 % (32.0-36.0) Red Cell Distribution Width 15.9 % (11.6-17.2) Platelet Count 140 TH/MM3 (150-450) Mean Platelet Volume 6.8 FL (7.0-11.0) CBC Comment AUTO DIFF Differential Total Cells Counted 100 Neutrophils % (Manual) 31 % (16-70) Band Neutrophils % 42 % (0-6) Lymphocytes % 5 % (9-44) Monocytes % 6 % (0-8) Neutrophils # (Manual) 3.9 TH/MM3 (1.8-7.7) Metamyelocytes 16 % (0-1) Differential Comment FINAL DIFF MANUAL Toxic Granulation 1+ (NORMAL) Toxic Vacuolation PRESENT (NONE SEEN) Platelet Estimate LOW (NORMAL) Platelet Morphology Comment NORMAL (NORMAL) Ovalocytes 1+ (NORMAL) Acanthocytes OCC (NORMAL) Total Protein 6.5 GM/DL (6.4-8.2) Albumin 2.6 GM/DL (3.4-5.0) Alkaline Phosphatase 76 U/L (45-117) Aspartate Amino Transf (AST/SGOT) 19 U/L (15-37) Alanine Aminotransferase (ALT/SGPT) 14 U/L (10-53) Total Bilirubin 1.1 MG/DL (0.2-1.0) Random Cortisol 99.6 MCG/DL Test 02/06/17 06:36 Blood Urea Nitrogen 13 MG/DL (7-18) Creatinine 0.40 MG/DL (0.50-1.00) Random Glucose 133 MG/DL (74-106) Calcium Level 8.3 MG/DL (8.5-10.1) Magnesium Level 1.6 MG/DL (1.5-2.5) Sodium Level 131 MEQ/L (136-145) Potassium Level 3.7 MEQ/L (3.5-5.1) Chloride Level 95 MEQ/L (98-107) Carbon Dioxide Level 31.4 MEQ/L (21.0-32.0) Anion Gap 5 MEQ/L (5-15) Estimat Glomerular Filtration Rate 157 ML/MIN (>89) Result Diagram: 02/05/1705 02/06/17 0636 Microbiology Microbiology Date/Time Source Procedure Growth Status 02/04/17 11:35 Blood Peripheral Aerobic Blood Culture - Preliminary NO GROWTH IN 1 DAY Resulted 02/04/17 11:35 Blood Peripheral Anaerobic Blood Culture - Preliminary NO GROWTH IN 1 DAY Resulted 02/04/17 11:20 Blood Peripheral Aerobic Blood Culture - Preliminary NO GROWTH IN 1 DAY Resulted 02/04/17 11:20 Blood Peripheral Anaerobic Blood Culture - Preliminary NO GROWTH IN 1 DAY Resulted Assessment and Plan Disease Oriented Problem List: (1) Sepsis (2) Hyponatremia (3) Pneumonia (4) Hypoxia Symptom Scale: (1) Shortness of breath Comment: Multifactorial. Patient has had multiple hospitalizations for shortness of breath/pneumonia. Mild respiratory distress. Now on 3 L nasal cannula. O2 saturation high 90s. . (2) Decreased oral intake Comment: History of dysphagia status post dilatation. Patient was currently on pured diet in custodial. His lost approximately 25 pounds in 2 months. . (3) Debility Comment: Progressive. Patient has had prolonged hospitalization in 4 different facilities since November 2016. Since November she has been hospitalized approximately 5 times. Patient was discharged recently into a [facility] facility. Patient has also lost weight significantly. Has not been able to participate in physical therapy due to her illness. Patient remains at high risk for deterioration if she continues to have shortness of breath, which will limit her participation in physical therapy. Patient may benefit from physical therapy. . Pertinent Non-Medical Issues Psychosocial: Spiritual: Legal: Ethical issues impacting care: Important Contacts Granddaughter-[facility]- Connie Cotton- [phone] Alternate [facility]- Freddy Cotton [phone] Daughter- Flor Bennett [phone] . Prognosis Mrs Knapp is a 71 years old female with a past medical history of colon cancer, esophageal strictures, pneumonia and anxiety. Patient has had multiple hospitalizations for persistent pneumonia, hyponatremia and dysphagia. She was recently discharged from [facility] to a [facility] facility. Patient presented via EMS to [facility] on 02/04/17 after she was found slumped over, with cyanosis of limbs and in respiratory distress at [facility]. Patient`s O2 saturation were in the 80s. Given ongoing comorbidities and recent multiple hospitalizations, patient remains at high risk for complications, deterioration in decline. . Code Status: Full Code Plan PLAN: Legal decision maker: Patient does not appear to have clear understanding and insight of her clinical condition. Recommending joint decision making with her granddaughter Connie Cotton. Her alternate HCS- Freddy Cotton. Goals: 02/06/17 Remain aggressive. Updated patient`s daughter Flor Bennett on patient`s medical status. Patients daughter stated that patient has been having dysphagia problems over a long period of time. Patient`s daughter does not recall patient been ever told that she had a thyroid nodule. Patient`s daughter endorses that patient has had a decline since November otherwise she was independent, living alone and assisting taking care of her mother. Explained to patient`s daughter, that patient may continue to decline and may not be able to return to her baseline. Encouraged her to keep addressing patient`s wishes and what she would consider as quality of life while she is still able to speak for herself. Patient`s daughter verbalizes importance of discussing such issues and appreciative of visit. Family continues to be hopeful that patient will get strong enough to go back to [place]. Obtained daughter`s contact information. CODE STATUS: Full code SYMPTOMS: * Shortness of breath:Multifactorial. Patient has had multiple hospitalizations for shortness of breath/pneumonia. Chest x-ray revealed a space infiltrate in right base, with possible small effusion. Mild respiratory distress noted. Patient now on 3 L nasal cannula humidified O2 saturating high 90s. Received antibiotics in the ER. Patient is on DuoNeb nebs * Decreased oral intake:History of dysphagia status post dilatation. Patient was currently on pured diet in custodial. She lost approximately 25 pounds in 2 months. Recommending swallowing evaluation by speech therapy. Patient failed swallow evaluation today. GI consulted. NG tube attempted to be placed at bedside but unsuccessful. Patient going to interventional radiology for G- tube placement. TF started. . * Debility:Progressive. Patient has had prolonged hospitalization in 4 different facilities since November 2016. Since November she has been hospitalized approximately 5 times. Patient was discharged recently into a [facility] facility. Patient has also lost weight significantly. Has not been able to participate in physical therapy due to her illness. Patient remains at high risk for deterioration if she continues to have shortness of breath, which will limit her participation in physical therapy. Patient may benefit from physical therapy. Palliative care will continue to follow the patient during hospital course as condition evolves, to assist patient/decision-maker with understanding of their medical conditions, weighing benefits/burdens of treatment options, for clarification of goals of treatment. Additionally will assist with any symptoms of palliative concern. . Attestation To help prompt me to consider important information that might be impacting today's encounter and assessment, information from prior notes written by myself or my colleagues may have been "brought forward" into today's note. My signature on this note, however, is an attestation that I personally performed the exam, history, and/or decision-making noted today, and, unless otherwise indicated, the interactions with patient, family, and staff as well as the review of records all occurred today. I also attest that the listed assessment and stated plan reflect my best clinical judgment today based on the combination of historical information, prior notes, and today's exam/ interactions. When time spent is documented, it refers only to time spent today by the signer, or if indicated, combined time spent today by collaborating physician/nurse practitioner. Julianne More Feb 06, 2017 10:51
--- NOTE | 2017-02-06 11:11 | HHI.GIFU ---
Subjective Remarks Pt resting in bed. TF running 20ml/hr. had Gtube placed by IR. (Juanis Reddy) Objective Vitals I&O Vital Signs Date Time Temp Pulse Resp B/P (MAP) Pulse Ox O2 Delivery O2 Flow Rate FiO2 02/06/17 09:00 104 27 107/53 (71) 100 02/06/17 09:00 104 02/06/17 08:39 100 Nasal Cannula 4.00 02/06/17 08:00 106 02/06/17 08:00 98.4 106 26 125/62 (83) 100 02/06/17 07:15 108 02/06/17 07:15 98 24 100 02/06/17 07:00 97 34 125/61 (82) 100 02/06/17 06:00 108 39 105/58 (74) 100 02/06/17 06:00 108 02/06/17 05:00 98 17 113/56 (75) 100 02/06/17 04:00 97 02/06/17 04:00 98.7 97 16 122/59 (80) 100 02/06/17 03:00 98 15 109/59 (76) 100 02/06/17 02:00 97 21 124/58 (80) 100 02/06/17 02:00 97 02/06/17 01:00 98.5 101 23 116/56 (76) 100 02/06/17 00:00 101 16 107/53 (71) 100 02/06/17 00:00 101 02/05/17 23:00 112 30 127/65 (85) 99 02/05/17 22:00 106 16 107/53 (71) 100 02/05/17 22:00 103 02/05/17 21:00 104 23 137/63 (87) 100 02/05/17 20:31 100 Nasal Cannula 4.00 02/05/17 20:00 94 02/05/17 20:00 98.8 95 19 128/60 (82) 100 02/05/17 19:00 97 22 137/64 (88) 100 02/05/17 18:00 93 02/05/17 18:00 93 19 123/58 (79) 100 02/05/17 17:29 97 02/05/17 17:29 97 23 138/62 (87) 96 02/05/17 17:28 101 02/05/17 17:28 101 27 184/67 (106) 94 02/05/17 17:00 98.4 92 20 85 02/05/17 17:00 92 02/05/17 16:16 124/60 (81) 02/05/17 15:00 96 35 99 02/05/17 15:00 96 02/05/17 14:00 102 02/05/17 14:00 102 29 157/74 (101) 97 02/05/17 13:01 97 02/05/17 13:01 97 26 132/63 (86) 100 02/05/17 13:00 93 28 100 02/05/17 13:00 93 02/05/17 12:00 92 31 106/55 (72) 100 02/05/17 12:00 92 I/O 02/05/17 02/05/17 02/05/17 02/06/17 02/06/17 02/06/17 07:00 15:00 23:00 07:00 15:00 23:00 Intake Total 250 ml 1501 ml 920 ml Output Total 800 ml 450 ml 425 ml Balance -550 ml 1501 ml -450 ml 495 ml Intake IV Total 250 ml 1501 ml 920 ml Output Urine Total 800 ml 450 ml 425 ml # Bowel Movements 0 0 0 Laboratory Laboratory Tests Test 02/05/17 20:24 02/06/17 06:36 Blood Urea Nitrogen 17 13 Creatinine 0.46 0.40 Random Glucose 92 133 Calcium Level 8.3 8.3 Sodium Level 129 131 Potassium Level 3.3 3.7 Chloride Level 90 95 Carbon Dioxide Level 27.8 31.4 Anion Gap 11 5 Estimat Glomerular Filtration Rate 134 157 Magnesium Level 1.6 Date/Time Source Procedure Growth Status 02/04/17 11:35 Blood Peripheral Aerobic Blood Culture - Preliminary NO GROWTH IN 2 DAYS Resulted 02/04/17 11:35 Blood Peripheral Anaerobic Blood Culture - Preliminary NO GROWTH IN 2 DAYS Resulted Imaging Last Impressions Chest X-Ray 02/05/17 0600 Signed Impressions: Service Date/Time: January 04:25 - CONCLUSION: Patchy infiltrate is now present in both medial lung bases. Caesar Ramos MD Gastrostomy Tube Placement 02/05/17 0000 Signed Impressions: Service Date/Time: January 16:47 - CONCLUSION: Uncomplicated gastrostomy tube placement as above. Jorje Josue MD Lower Extremity Ultrasound 02/04/17 0000 Signed Impressions: Service Date/Time: Saturday, February 04, 2017 21:13 - CONCLUSION: 1. No evidence of deep venous thrombosis within the lower extremities. 2. Popliteal cyst on the left measuring 2.2 x 1.5 x 0.9 cm. Julian Mcmahan MD Head CT 02/04/17 Signed Impressions: Service Date/Time: Saturday, February 04, 2017 17:50 - CONCLUSION: 1. No acute intracranial abnormality. 2. Tiny fluid level within the right maxillary sinus. Julian Mcmahan MD CT Angiography 02/04/17 Signed Impressions: Service Date/Time: Saturday, February 04, 2017 17:54 - CONCLUSION: 1. No evidence of pulmonary embolism. 2. Bibasilar alveolar consolidations as well as scattered perihilar patchy opacities suggestive of probable pneumonia. Clinical correlation is recommended. 3. 1.7 cm right thyroid nodule. Julian Mcmahan MD Abdomen X-Ray 02/04/17 Signed Impressions: Service Date/Time: January 05:52 - CONCLUSION: Interval placement of nasogastric tube with the tip in the left mainstem bronchus. Caesar Ramos MD Physical Exam HEENT: normocephalic; atraumatic; no jaundice. CHEST: diminished, tachypneic CARDIAC: tachycardic ABDOMEN: Soft, nondistended, nontender; no hepatosplenomegaly; bowel sounds +. G tube dressing d&I EXTREMITIES: No clubbing, cyanosis, or edema. SKIN: Normal; no rash; no jaundice. 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 hx esophageal stricture requiring dilatation and EGD with ped scope. per ST eval here pt should be NPO. s/p G tube placement by IR, TF running @ 20ml/hr. - chronic diarrhea - since colectomy with 18" removed, hx colon ca - acute respiratory failure, hyponatremia, encephalopathy per [facility] PLAN - TF per nutrition - supportive care - GI will sign off. please reconsult if needed This pt seen by myself and Dr Garrison and this note is written on his behalf (Juanis Reddy) Physician Comments Seen and examined with TERE, G tube placed by IR. GI will sign off. Thank you (Nato Garrison MD) Juanis Reddy Feb 06, 2017 11:11 Nato Garrison MD Feb 06, 2017 14:53
--- NOTE | 2017-02-06 13:22 | HHI.CCPN ---
Subjective Remarks/Hospital Course 02/04: 71-year-old female with a medical history significant for colon cancer in 2003 for which she underwent partial colon resection and chemotherapy, esophageal stricture with significant weight loss due to poor by mouth intake for which she was hospitalized in [place] in November 2016 for 2 weeks treated for pneumonia and subsequently evaluated for dysphagia and was found to have a sufficient stricture for which she was transferred to [facility] in [place] and underwent esophageal dilatation and was subsequently discharged 2 weeks later on a pured diet. Patient moved to [place] with her granddaughter and a few beats VAC was admitted to [facility] for worsening shortness of breath and was diagnosed with a pneumonia, hyponatremia. She was treated with antibiotics and subsequently discharged home however the following day had to be readmitted at [facility] for unresolved shortness of breath where she was hospitalized for a week and subsequently discharged to custodial 3 days prior to this admission. Patient's by mouth intake has been poor since her discharge 3 days back according to her granddaughter as the pured diet at the custodial is to take. Patient was found to have altered mental status today and was found slumped to one side with poor respirations. EMS was called and patient was noted to have O2 sats in the 60s. She was transported to the emergency room where she was placed on BiPAP for respiratory distress with hypoxic respiratory failure. She was also noted to be hypertensive on arrival with systolic blood pressure in the 200s. Patient was also found to have a sodium of 118. I was contacted by ER physician and accepted patient for admission to the ICU. When I evaluated the patient in the ER she was on BiPAP with full facemask. History was obtained by discussion with patient's granddaughter was at the bedside. Patient was much more awake at this time and trying to communicate however in view of BiPAP requirement was difficult to communicate with. She denied any chest pain at the time. Patient has chronic diarrhea since her colon surgery in 2003. Per the granddaughter she was doing well till about 3 months ago when she started having significant weight loss and poor by mouth intake possibly related to esophageal stricture and the fact that she was taking care of her sick family member at home. She has been advised a PEG tube per the granddaughter because of her poor nutritional status and poor by mouth intake. She has had problems with hyponatremia off and on for a while. Patient's granddaughter is very concerned about her poor nutritional status. 02/05: Tolerating nasal cannula. Underwent PEG tube placement by IR today. Sodium 122. 02/06 No events overnight. s/p PEG tube placement yesterday. Sodium level 131 this morning Objective Vital Signs Date Time Temp Pulse Resp B/P (MAP) Pulse Ox O2 Delivery O2 Flow Rate FiO2 02/06/17 09:00 104 27 107/53 (71) 100 02/06/17 08:39 Nasal Cannula 4.00 02/06/17 08:00 98.4 02/05/17 06:38 50 Intake and Output 02/06/17 02/06/17 02/07/17 08:00 16:00 00:00 Intake Total 920 ml Output Total 425 ml Balance 495 ml Result Diagram: 02/05/17 0705 02/06/17 0636 Other Results Laboratory Tests Test 02/05/17 20:24 02/06/17 06:36 Blood Urea Nitrogen 17 MG/DL 13 MG/DL Creatinine 0.46 MG/DL 0.40 MG/DL Random Glucose 92 MG/DL 133 MG/DL Calcium Level 8.3 MG/DL 8.3 MG/DL Sodium Level 129 MEQ/L 131 MEQ/L Potassium Level 3.3 MEQ/L 3.7 MEQ/L Chloride Level 90 MEQ/L 95 MEQ/L Carbon Dioxide Level 27.8 MEQ/L 31.4 MEQ/L Anion Gap 11 MEQ/L 5 MEQ/L Estimat Glomerular Filtration Rate 134 ML/MIN 157 ML/MIN Magnesium Level 1.6 MG/DL Imaging Last Impressions Chest X-Ray 02/05/17 0600 Signed Impressions: Service Date/Time: January 04:25 - CONCLUSION: Patchy infiltrate is now present in both medial lung bases. Caesar Ramos MD Gastrostomy Tube Placement 02/05/17 0000 Signed Impressions: Service Date/Time: January 16:47 - CONCLUSION: Uncomplicated gastrostomy tube placement as above. Jorje Josue MD Lower Extremity Ultrasound 02/04/17 0000 Signed Impressions: Service Date/Time: Saturday, February 04, 2017 21:13 - CONCLUSION: 1. No evidence of deep venous thrombosis within the lower extremities. 2. Popliteal cyst on the left measuring 2.2 x 1.5 x 0.9 cm. Julian Mcmahan MD Head CT 02/04/17 0000 Signed Impressions: Service Date/Time: Saturday, February 04, 2017 17:50 - CONCLUSION: 1. No acute intracranial abnormality. 2. Tiny fluid level within the right maxillary sinus. Julian Mcmahan MD CT Angiography 02/04/17 0000 Signed Impressions: Service Date/Time: Saturday, February 04, 2017 17:54 - CONCLUSION: 1. No evidence of pulmonary embolism. 2. Bibasilar alveolar consolidations as well as scattered perihilar patchy opacities suggestive of probable pneumonia. Clinical correlation is recommended. 3. 1.7 cm right thyroid nodule. Julian Mcmahan MD Abdomen X-Ray 02/04/17 0000 Signed Impressions: Service Date/Time: January 05:52 - CONCLUSION: Interval placement of nasogastric tube with the tip in the left mainstem bronchus. Caesar Ramos MD Objective Remarks Elderly female appears cachectic, laying in ICU bed on nasal cannula not in any acute distress. HEENT/Neuro: Pallor present, no icterus, tongue moist, ZEKE, Awake alert oriented 3, nonfocal grossly, moving all 4 extremities Neck: No JVD Chest/pulmonary: On BiPAP with full facemask, good air entry bilaterally, scattered rhonchi, no wheezing Cardiovascular: S1-S2 regular no gallop or murmur GI/abdomen: Soft, nontender, bowel sounds present Extremities: Warm bilaterally, no edema A/P Assessment and Plan 71-year-old female with: Encephalopathy Acute respiratory failure Probable recurrent aspiration pneumonia (prehospital) Failure to thrive Hyponatremia Chronic diarrhea History of esophageal stricture status post recent esophageal dilation History of colon cancer Lower extremity edema Plan: Neuro: Monitor neuro status. Avoid sedatives and narcotics. Head CT negative for bleed. CV: Monitor HR and BP keep MAP>65mmHg Pulm: Continue with oxygen keep sat >92% Bronchodilators. CT chest with no evidence of PE and shows bibasilar infiltrates concerning for recurrent aspiration pneumonia GI/liver:s/p PEG tube placement by IR 02/05 Continue tube feeds-Jevity 1.5 with goal rate 45ml/hr Renal/: Monitor renal function, I/O's, electrolytes replacement as needed. d/c IVF- Sodium level 131 from 122 yesterday. Renal is following Conivaptan per nephrology. ID: Continue empiric antibiotic coverage with IV Levaquin and Flagyl. Monitor for signs of infections ( Fever, WBC) Endocrine: SSI for glycemic control if needed. Heme-onc: Monitor CBC and coags. Prophylaxis: Pepcid/SCDs. Subcutaneous Lovenox. Palliative care is following Level 2 Varun Yusuf MD Feb 06, 2017 13:22
--- NOTE | 2017-02-06 14:18 | HHI.NPPN ---
Subjective History of Present Illness This patient is a 71-year-old female with a history of recurrent pneumonia, hyponatremia, see of the colon with previous resection and by history apparent failure to thrive with progressive weight loss. Mention of recent hospitalization at [facility] with pneumonia and hyponatremia. Records are not presently available to me. Patient subsequently according to the records I reviewed was admitted at [facility] 2 electrolyte abnormalities again records are not available. Now presents [place] [facility] with a history of shortness of breath and altered mental status. Chest x-ray indicating Changes consistent with pneumonia and serum sodium level was 118. Patient's nutritional intake continues to be poor by history with progressive weight loss. Interval History Patient nodding her head appropriately to questions. Very debilitated and frail. Objective Data Data 02/06/17 02/07/17 19:00 07:00 Intake Total 417 ml Balance 417 ml Intake IV Total 417 ml Vital Signs Date Time Temp Pulse Resp B/P (MAP) Pulse Ox O2 Delivery O2 Flow Rate FiO2 02/06/17 09:00 104 27 107/53 (71) 100 02/06/17 09:00 104 02/06/17 08:39 100 Nasal Cannula 4.00 02/06/17 08:00 106 02/06/17 08:00 98.4 106 26 125/62 (83) 100 02/06/17 07:15 108 02/06/17 07:15 98 24 100 02/06/17 07:00 97 34 125/61 (82) 100 02/06/17 06:00 108 39 105/58 (74) 100 02/06/17 06:00 108 02/06/17 05:00 98 17 113/56 (75) 100 02/06/17 04:00 97 02/06/17 04:00 98.7 97 16 122/59 (80) 100 02/06/17 03:00 98 15 109/59 (76) 100 02/06/17 02:00 97 21 124/58 (80) 100 02/06/17 02:00 97 02/06/17 01:00 98.5 101 23 116/56 (76) 100 02/06/17 00:00 101 16 107/53 (71) 100 02/06/17 00:00 101 02/05/17 23:00 112 30 127/65 (85) 99 02/05/17 22:00 106 16 107/53 (71) 100 02/05/17 22:00 103 02/05/17 21:00 104 23 137/63 (87) 100 02/05/17 20:31 100 Nasal Cannula 4.00 02/05/17 20:00 94 02/05/17 20:00 98.8 95 19 128/60 (82) 100 02/05/17 19:00 97 22 137/64 (88) 100 02/05/17 18:00 93 02/05/17 18:00 93 19 123/58 (79) 100 02/05/17 17:29 97 02/05/17 17:29 97 23 138/62 (87) 96 02/05/17 17:28 101 02/05/17 17:28 101 27 184/67 (106) 94 02/05/17 17:00 98.4 92 20 85 02/05/17 17:00 92 02/05/17 16:16 124/60 (81) 02/05/17 15:00 96 35 99 02/05/17 15:00 96 -: 02/05/17 0705 02/06/17 0636 Physical Exam General Appearance: No Acute Distress, Malnourished (essentially emaciated.) Eyes Eye Exam: Sclera White Pulmonary Resp Exam: Clear Bilaterally, Breath Sounds Equal, No Distress Cardiology CV Exam: Regular, Normal Sinus Rhythm Integumentary Skin Exam: Clear, Warm, Dry Extremeties Extremities Exam: Trace Edema Neurologic Neuro Exam: Stuporous Assessment/Plan Problem List: (1) Hyponatremia ICD Codes: E87.1 - Hypo-osmolality and hyponatremia Status: Acute Plan: Patient's urine osmolality inappropriately elevated for serum sodium level indicating impaired free water clearance. Probable acute on chronic give medical history of previous episodes. Etiology most likely multifactorial secondary to poor nutritional intake resulting in a paucity of osmoles required for free water clearance , hypoalbuminemia as well as pneumonia which can be associated with SIADH. The patient's sodium level is now above 129. I believe her serum sodium level will now improve with initiation of nutritional support via the G-tube. At this point in time will see patient when necessary. Please recall if required. Thanks. (2) Failure to thrive in adult ICD Codes: R62.7 - Adult failure to thrive Plan: Clinical history strongly suggestive of failure to thrive with progressive weight loss and patient appears to be emaciated. Etiology of this is uncertain. Apparently she has been admitted to 3 institutions recently prior to being admitted here. Defer to in house primary care physician in regard to evaluating this further. Given the patient's current clinical status prognosis is guarded. (3) Pneumonia ICD Codes: J18.9 - Pneumonia, unspecified organism Status: Acute Plan: Management per critical care. Gloria Estes MD Feb 06, 2017 14:18
[2017-02-06 14:29] LABS: AUTOMATED NEUTROPHIL # 5.2 TH/MM3 (1.8-7.7); BASOPHIL % 0.3 % (0.0-2.0); EOSINOPHIL % 0.1 % (0.0-4.0); HEMATOCRIT 28.2 % (35.0-46.0); HEMOGLOBIN 9.8 GM/DL (11.6-15.3); LYMPH % 3.3 % (9.0-44.0); LYMPHOCYTE # 0.2 TH/MM3 (1.0-4.8); MEAN CELL VOLUME 87.1 FL (80.0-100.0); MEAN CORPUSCULAR HEMOGLOBIN 30.4 PG (27.0-34.0); MEAN CORPUSCULAR HGB CONC 34.9 % (32.0-36.0); MEAN PLATELET VOLUME 6.4 FL (7.0-11.0); MONO % 9.8 % (0.0-8.0); MONOCYTE # 0.6 TH/MM3 (0-0.9); NEUT % 86.5 % (16.0-70.0); PLATELET COUNT 197 TH/MM3 (150-450); RED BLOOD COUNT 3.23 MIL/MM3 (4.00-5.30); RED CELL DISTRIBUTION WIDTH 15.6 % (11.6-17.2)
[2017-02-06 14:56] LABS: BICARBONATE 30.6 MEQ/L (21.0-32.0); CALCIUM 8.6 MG/DL (8.5-10.1); CREATININE 0.44 MG/DL (0.50-1.00); MAGNESIUM 1.7 MG/DL (1.5-2.5); PHOSPHORUS 1.2 MG/DL (2.5-4.9)
[2017-02-06] MEDS ORDERED: MAGNESIUM OXIDE 400 MG TAB PO PRN (16:00)
[2017-02-06] MEDS ORDERED: MAGNESIUM SULFATE INJ 2 GM in SODIUM CHLORIDE 0.9% INJ 96 ML IV PRN (16:00)
[2017-02-06] MEDS ORDERED: MAGNESIUM SULFATE INJ 4 GM in SODIUM CHLORIDE 0.9% INJ 92 ML IV PRN (16:00)
[2017-02-06] MEDS ORDERED: POTASSIUM PHOSPHATE MONOBASIC 500 MG TAB PO/TUBE PRN (16:00)
[2017-02-06] MEDS ORDERED: POTASSIUM CHLOR 20 MEQ PREMIX 100 ML IV PRN (16:00)
[2017-02-06] MEDS ORDERED: POTASSIUM CHLOR 40 MEQ PREMIX 100 ML IV PRN ×2 (16:00)
[2017-02-06] MEDS ORDERED: POTASSIUM PHOSPHATE MONOBASIC 500 MG TAB PO PRN (16:00)
[2017-02-06] MEDS: SODIUM PHOSPHATE INJ 30 MMOL in SODIUM CHLOR 0.9% 250 ML INJ 240 ML IV PRN (19:00)
--- NOTE | 2017-02-06 19:53 | RADRPT ---
EXAM DATE/TIME: 02/06/2017 18:55 [facility] COMPARISON: CHEST SINGLE AP, February 05, 2017, 4:25. INDICATIONS : Respiratory distress MEDICAL HISTORY : Hypertension. SURGICAL HISTORY : None. ENCOUNTER: Subsequent ACUITY: 3 days PAIN SCORE: Non-responsive. LOCATION: Bilateral chest FINDINGS: There are persistent bibasilar patchy consolidations consistent with atelectasis and/or pneumonia. Th e heart is stable. The pulmonary vascular pattern is normal. CONCLUSION: Persistent bibasilar patchy consolidations consistent with atelectasis and/or pneumonia. Julian Mcmahan MD on February 06, 2017 at 19:50 Board Certified Radiologist. This report was verified electronically.
[2017-02-06] MEDS: ACETAMINOPHEN 1000 MG/100 ML 100 ML IV PRN (21:18)
[2017-02-06] MEDS ORDERED: ALPRAZolam 0.25 MG TAB PO SCH (22:30)
[2017-02-06] MEDS: LEVOFLOXACIN 750 MG PREMIX INJ 150 ML IV SCH (23:02)
[2017-02-06] MEDS: ENOXAPARIN SODIUM 40 MG/0.4 ML SYRINGE SQ SCH (23:02)
[2017-02-06] MEDS ORDERED: ALPRAZolam 0.5 MG TAB PO SCH (23:45)
[2017-02-07] VITALS (23 sets, daily range): BP systolic 110–153; BP diastolic 56–69; PULSE 100–133; RESP 16–34; TEMP 97.5–99.1; O2SAT 94–100
[2017-02-07] MEDS: INSULIN ASPART SUPPLEMENTAL SCALE SQ SCH ×4 (02:37→17:32)
[2017-02-07] MEDS: CHLORHEXIDINE GLUCONATE 2 % 1 PACK (2 CLOTHS) TOP SCH (04:00)
[2017-02-07] MEDS: RESP: ALBUTEROL 2.5 MG/IPRATROPIUM 0.5 MG NEB (SCH) NEB ×5 (04:17→20:56)
[2017-02-07] MEDS: ACETAMINOPHEN 1000 MG/100 ML 100 ML IV PRN (04:46)
[2017-02-07] MEDS: metroNIDAZOLE 500 MG INJ 100 ML IV SCH ×3 (06:04→20:11)
[2017-02-07 07:19] LABS: AUTOMATED NEUTROPHIL # 4.1 TH/MM3 (1.8-7.7); BASOPHIL % 0.2 % (0.0-2.0); HEMATOCRIT 27.3 % (35.0-46.0); HEMOGLOBIN 9.5 GM/DL (11.6-15.3); LYMPHOCYTE # 0.4 TH/MM3 (1.0-4.8); MEAN CELL VOLUME 88.7 FL (80.0-100.0); MEAN CORPUSCULAR HGB CONC 34.9 % (32.0-36.0); MEAN PLATELET VOLUME 6.9 FL (7.0-11.0); MONO % 12.8 % (0.0-8.0); MONOCYTE # 0.7 TH/MM3 (0-0.9); PLATELET COUNT 156 TH/MM3 (150-450); RED BLOOD COUNT 3.08 MIL/MM3 (4.00-5.30); RED CELL DISTRIBUTION WIDTH 15.6 % (11.6-17.2); WHITE BLOOD COUNT 5.1 TH/MM3 (4.0-11.0)
[2017-02-07 07:33] LABS: BICARBONATE 33.2 MEQ/L (21.0-32.0); CALCIUM 7.9 MG/DL (8.5-10.1); CREATININE 0.41 MG/DL (0.50-1.00)
[2017-02-07] MEDS: CHLORHEXIDINE 0.12% (ORAL KIT) 15 ML CUP MT SCH ×2 (08:00→20:00)
[2017-02-07] MEDS: SODIUM CHLORIDE 0.9% FLUSH 10 ML FLUSH IV FLUSH SCH ×2 (08:57→20:11)
[2017-02-07] MEDS: PANTOPRAZOLE SODIUM 40 MG VIAL IV PUSH SCH (08:57)
[2017-02-07] MEDS ORDERED: ALPRAZolam 0.25 MG TAB PO ONE (10:00)
[2017-02-07] MEDS ORDERED: FUROSEMIDE 20 MG/2 ML VIAL IV PUSH ONE (10:00)
--- NOTE | 2017-02-07 10:02 | HHI.CCPN ---
Subjective Remarks/Hospital Course 02/04: 71-year-old female with a medical history significant for colon cancer in 2003 for which she underwent partial colon resection and chemotherapy, esophageal stricture with significant weight loss due to poor by mouth intake for which she was hospitalized in [place] in November 2016 for 2 weeks treated for pneumonia and subsequently evaluated for dysphagia and was found to have a sufficient stricture for which she was transferred to [facility] in [place] and underwent esophageal dilatation and was subsequently discharged 2 weeks later on a pured diet. Patient moved to [place] with her granddaughter and a few beats VAC was admitted to [facility] for worsening shortness of breath and was diagnosed with a pneumonia, hyponatremia. She was treated with antibiotics and subsequently discharged home however the following day had to be readmitted at [facility] for unresolved shortness of breath where she was hospitalized for a week and subsequently discharged to halfway 3 days prior to this admission. Patient's by mouth intake has been poor since her discharge 3 days back according to her granddaughter as the pured diet at the halfway is to take. Patient was found to have altered mental status today and was found slumped to one side with poor respirations. EMS was called and patient was noted to have O2 sats in the 60s. She was transported to the emergency room where she was placed on BiPAP for respiratory distress with hypoxic respiratory failure. She was also noted to be hypertensive on arrival with systolic blood pressure in the 200s. Patient was also found to have a sodium of 118. I was contacted by ER physician and accepted patient for admission to the ICU. When I evaluated the patient in the ER she was on BiPAP with full facemask. History was obtained by discussion with patient's granddaughter was at the bedside. Patient was much more awake at this time and trying to communicate however in view of BiPAP requirement was difficult to communicate with. She denied any chest pain at the time. Patient has chronic diarrhea since her colon surgery in 2003. Per the granddaughter she was doing well till about 3 months ago when she started having significant weight loss and poor by mouth intake possibly related to esophageal stricture and the fact that she was taking care of her sick family member at home. She has been advised a PEG tube per the granddaughter because of her poor nutritional status and poor by mouth intake. She has had problems with hyponatremia off and on for a while. Patient's granddaughter is very concerned about her poor nutritional status. 02/05: Tolerating nasal cannula. Underwent PEG tube placement by IR today. Sodium 122. 02/06 No events overnight. s/p PEG tube placement yesterday. Sodium level 131 this morning 02/07 No events overnight. On 50% VM with good sats. Objective Vital Signs Date Time Temp Pulse Resp B/P (MAP) Pulse Ox O2 Delivery O2 Flow Rate FiO2 02/07/17 08:45 100 Venturi Mask 6.00 50 02/07/17 08:00 97.8 108 25 135/63 (87) Intake and Output 02/07/17 02/07/17 02/08/17 08:00 16:00 00:00 Intake Total 1285 ml Output Total 375 ml Balance 910 ml Result Diagram: 02/07/17 0606 02/07/17 0606 Other Results Laboratory Tests Test 02/06/17 13:55 02/06/17 18:52 02/07/17 06:06 White Blood Count 6.0 TH/MM3 5.1 TH/MM3 Red Blood Count 3.23 MIL/MM3 3.08 MIL/MM3 Hemoglobin 9.8 GM/DL 9.5 GM/DL Hematocrit 28.2 % 27.3 % Mean Corpuscular Volume 87.1 FL 88.7 FL Mean Corpuscular Hemoglobin 30.4 PG 31.0 PG Mean Corpuscular Hemoglobin Concent 34.9 % 34.9 % Red Cell Distribution Width 15.6 % 15.6 % Platelet Count 197 TH/MM3 156 TH/MM3 Mean Platelet Volume 6.4 FL 6.9 FL Neutrophils (%) (Auto) 86.5 % 80.0 % Lymphocytes (%) (Auto) 3.3 % 7.0 % Monocytes (%) (Auto) 9.8 % 12.8 % Eosinophils (%) (Auto) 0.1 % 0.0 % Basophils (%) (Auto) 0.3 % 0.2 % Neutrophils # (Auto) 5.2 TH/MM3 4.1 TH/MM3 Lymphocytes # (Auto) 0.2 TH/MM3 0.4 TH/MM3 Monocytes # (Auto) 0.6 TH/MM3 0.7 TH/MM3 Eosinophils # (Auto) 0.0 TH/MM3 0.0 TH/MM3 Basophils # (Auto) 0.0 TH/MM3 0.0 TH/MM3 CBC Comment DIFF FINAL DIFF FINAL Differential Comment Blood Urea Nitrogen 11 MG/DL 11 MG/DL Creatinine 0.44 MG/DL 0.41 MG/DL Random Glucose 186 MG/DL 163 MG/DL Calcium Level 8.6 MG/DL 7.9 MG/DL Phosphorus Level 1.2 MG/DL 1.8 MG/DL Magnesium Level 1.7 MG/DL Sodium Level 134 MEQ/L 137 MEQ/L Potassium Level 3.7 MEQ/L 3.0 MEQ/L Chloride Level 99 MEQ/L 98 MEQ/L Carbon Dioxide Level 30.6 MEQ/L 33.2 MEQ/L Anion Gap 4 MEQ/L 6 MEQ/L Estimat Glomerular Filtration Rate 141 ML/MIN 153 ML/MIN Blood Gas Puncture Site LT RADIAL Blood Gas Patient Temperature 98.6 Blood Gas HCO3 30 mmol/L Blood Gas Base Excess 5.0 mmol/L Blood Gas Oxygen Saturation 94 % Arterial Blood pH 7.36 Arterial Blood Partial Pressure CO2 56 mmHg Arterial Blood Partial Pressure O2 82 mmHg Arterial Blood Oxygen Content 13.5 Vol % Arterial Blood Carboxyhemoglobin 1.1 % Arterial Blood Methemoglobin 1.1 % Blood Gas Hemoglobin 10.2 G/DL Oxygen Delivery Device BIPAP Blood Gas Ventilator Setting [id number]/[id number] Blood Gas Inspired Oxygen 60 % Imaging Last Impressions Chest X-Ray 02/06/17 0000 Signed Impressions: Service Date/Time: Monday, February 06, 2017 18:55 - CONCLUSION: Persistent bibasilar patchy consolidations consistent with atelectasis and/or pneumonia. Julian Mcmahan MD Gastrostomy Tube Placement 02/05/17 0000 Signed Impressions: Service Date/Time: January 16:47 - CONCLUSION: Uncomplicated gastrostomy tube placement as above. Jorje Josue MD Lower Extremity Ultrasound 02/04/17 0000 Signed Impressions: Service Date/Time: Saturday, February 04, 2017 21:13 - CONCLUSION: 1. No evidence of deep venous thrombosis within the lower extremities. 2. Popliteal cyst on the left measuring 2.2 x 1.5 x 0.9 cm. Julian Mcmahan MD Head CT 02/04/17 0000 Signed Impressions: Service Date/Time: Saturday, February 04, 2017 17:50 - CONCLUSION: 1. No acute intracranial abnormality. 2. Tiny fluid level within the right maxillary sinus. Julian Mcmahan MD CT Angiography 02/04/17 0000 Signed Impressions: Service Date/Time: Saturday, February 04, 2017 17:54 - CONCLUSION: 1. No evidence of pulmonary embolism. 2. Bibasilar alveolar consolidations as well as scattered perihilar patchy opacities suggestive of probable pneumonia. Clinical correlation is recommended. 3. 1.7 cm right thyroid nodule. Julian Mcmahan MD Abdomen X-Ray 02/04/17 0000 Signed Impressions: Service Date/Time: January 05:52 - CONCLUSION: Interval placement of nasogastric tube with the tip in the left mainstem bronchus. Caesar Ramos MD Objective Remarks Elderly female appears cachectic, laying in ICU bed on nasal cannula not in any acute distress. HEENT/Neuro: Pallor present, no icterus, tongue moist, ZEKE, Awake alert oriented 3, nonfocal grossly, moving all 4 extremities Neck: No JVD Chest/pulmonary: On BiPAP with full facemask, good air entry bilaterally, scattered rhonchi, no wheezing Cardiovascular: S1-S2 regular no gallop or murmur GI/abdomen: Soft, nontender, bowel sounds present Extremities: Warm bilaterally, no edema A/P Assessment and Plan 71-year-old female with: Encephalopathy Acute respiratory failure Probable recurrent aspiration pneumonia (prehospital) Failure to thrive Hyponatremia Chronic diarrhea History of esophageal stricture status post recent esophageal dilation History of colon cancer Lower extremity edema Plan: Neuro: Monitor neuro status. Avoid sedatives and narcotics. Head CT negative for bleed. CV: Monitor HR and BP keep MAP>65mmHg Pulm: Continue with oxygen keep sat >92% Bronchodilators. check ABG CT chest with no evidence of PE and shows bibasilar infiltrates concerning for recurrent aspiration pneumonia GI/liver:s/p PEG tube placement by IR 02/05 Continue tube feeds-Jevity 1.5 advance to goal rate 45ml/hr Renal/: Monitor renal function, I/O's, electrolytes replacement as needed. Renal is following. Diurese with Lasix 20mg x1 ID: Continue empiric antibiotic coverage with IV Levaquin and Flagyl. Monitor for signs of infections ( Fever, WBC) Endocrine: SSI for glycemic control if needed. Heme-onc: Monitor CBC and coags. Prophylaxis: Pepcid/SCDs. Subcutaneous Lovenox. Palliative care is following Discussed with patient's granddaughter and updated her on patient's condition. Level 2 Varun Yusuf MD Feb 07, 2017 10:02
[2017-02-07] MEDS: POTASSIUM CHLOR 20 MEQ PREMIX 100 ML IV PRN ×4 (11:04→23:02)
[2017-02-07 11:26] LABS: MAGNESIUM 1.6 MG/DL (1.5-2.5); PHOSPHORUS 1.9 MG/DL (2.5-4.9)
[2017-02-07] MEDS: ALPRAZolam 0.25 MG TAB PO PRN (16:36)
[2017-02-07] MEDS: SODIUM PHOSPHATE INJ 30 MMOL in SODIUM CHLOR 0.9% 250 ML INJ 240 ML IV PRN (17:37)
[2017-02-07] MEDS: ENOXAPARIN SODIUM 40 MG/0.4 ML SYRINGE SQ SCH (20:11)
[2017-02-07] MEDS: LEVOFLOXACIN 750 MG PREMIX INJ 150 ML IV SCH (20:11)
[2017-02-08] VITALS (17 sets, daily range): BP systolic 138–150; BP diastolic 69–94; PULSE 116–133; RESP 22–30; TEMP 97.9–98.4; O2SAT 90–97
[2017-02-08] MEDS: RESP: ALBUTEROL 2.5 MG/IPRATROPIUM 0.5 MG NEB (SCH) NEB ×6 (00:12→19:53)
[2017-02-08] MEDS: ALPRAZolam 0.25 MG TAB PO PRN ×3 (00:47→16:32)
[2017-02-08] MEDS: INSULIN ASPART SUPPLEMENTAL SCALE SQ SCH ×5 (01:27→22:07)
[2017-02-08] MEDS: CHLORHEXIDINE GLUCONATE 2 % 1 PACK (2 CLOTHS) TOP SCH ×2 (04:00→20:42)
[2017-02-08 05:11] LABS: AUTOMATED NEUTROPHIL # 5.7 TH/MM3 (1.8-7.7); BASOPHIL % 0.2 % (0.0-2.0); EOSINOPHIL % 0.1 % (0.0-4.0); HEMATOCRIT 29.6 % (35.0-46.0); HEMOGLOBIN 10.4 GM/DL (11.6-15.3); LYMPH % 3.4 % (9.0-44.0); LYMPHOCYTE # 0.2 TH/MM3 (1.0-4.8); MEAN CELL VOLUME 87.6 FL (80.0-100.0); MEAN CORPUSCULAR HEMOGLOBIN 30.8 PG (27.0-34.0); MEAN CORPUSCULAR HGB CONC 35.2 % (32.0-36.0); MEAN PLATELET VOLUME 7.1 FL (7.0-11.0); MONO % 10.8 % (0.0-8.0); MONOCYTE # 0.7 TH/MM3 (0-0.9); NEUT % 85.5 % (16.0-70.0); PLATELET COUNT 159 TH/MM3 (150-450); RED BLOOD COUNT 3.38 MIL/MM3 (4.00-5.30); RED CELL DISTRIBUTION WIDTH 15.9 % (11.6-17.2); WHITE BLOOD COUNT 6.7 TH/MM3 (4.0-11.0)
[2017-02-08] MEDS: metroNIDAZOLE 500 MG INJ 100 ML IV SCH (05:17)
[2017-02-08 05:40] LABS: ALBUMIN 2.3 GM/DL (3.4-5.0); AST (GOT) 8 U/L (15-37); BICARBONATE 36.7 MEQ/L (21.0-32.0); BLOOD UREA NITROGEN 11 MG/DL (7-18); CALCIUM 7.8 MG/DL (8.5-10.1); CHLORIDE 96 MEQ/L (98-107); CREATININE 0.53 MG/DL (0.50-1.00); GLOMERULAR FILTRATION RATE 114 ML/MIN (>89); GLUCOSE,RANDOM 172 MG/DL (74-106); MAGNESIUM 1.7 MG/DL (1.5-2.5); SODIUM (NA) 138 MEQ/L (136-145)
[2017-02-08 05:41] LABS: ALT (GPT) 11 U/L (10-53); PHOSPHORUS 2.3 MG/DL (2.5-4.9)
[2017-02-08 05:43] LABS: ALKALINE PHOSPHATASE 84 U/L (45-117); TOTAL BILIRUBIN ADULT 0.3 MG/DL (0.2-1.0); TOTAL PROTEIN 5.7 GM/DL (6.4-8.2)
[2017-02-08] MEDS: PANTOPRAZOLE SODIUM 40 MG VIAL IV PUSH SCH (08:45)
[2017-02-08] MEDS: SODIUM PHOSPHATE INJ 30 MMOL in SODIUM CHLOR 0.9% 250 ML INJ 240 ML IV PRN (08:46)
[2017-02-08] MEDS: SODIUM CHLORIDE 0.9% FLUSH 10 ML FLUSH IV FLUSH SCH ×2 (08:46→19:43)
[2017-02-08] MEDS: CHLORHEXIDINE 0.12% (ORAL KIT) 15 ML CUP MT SCH ×2 (08:46→19:43)
--- NOTE | 2017-02-08 09:33 | HHI.CCPN ---
Subjective Remarks/Hospital Course 02/04: 71-year-old female with a medical history significant for colon cancer in 2003 for which she underwent partial colon resection and chemotherapy, esophageal stricture with significant weight loss due to poor by mouth intake for which she was hospitalized in [place] in November 2016 for 2 weeks treated for pneumonia and subsequently evaluated for dysphagia and was found to have a sufficient stricture for which she was transferred to [facility] in [place] and underwent esophageal dilatation and was subsequently discharged 2 weeks later on a pured diet. Patient moved to [place] with her granddaughter and a few beats VAC was admitted to [facility] for worsening shortness of breath and was diagnosed with a pneumonia, hyponatremia. She was treated with antibiotics and subsequently discharged home however the following day had to be readmitted at [facility] for unresolved shortness of breath where she was hospitalized for a week and subsequently discharged to care home 3 days prior to this admission. Patient's by mouth intake has been poor since her discharge 3 days back according to her granddaughter as the pured diet at the care home is to take. Patient was found to have altered mental status today and was found slumped to one side with poor respirations. EMS was called and patient was noted to have O2 sats in the 60s. She was transported to the emergency room where she was placed on BiPAP for respiratory distress with hypoxic respiratory failure. She was also noted to be hypertensive on arrival with systolic blood pressure in the 200s. Patient was also found to have a sodium of 118. I was contacted by ER physician and accepted patient for admission to the ICU. When I evaluated the patient in the ER she was on BiPAP with full facemask. History was obtained by discussion with patient's granddaughter was at the bedside. Patient was much more awake at this time and trying to communicate however in view of BiPAP requirement was difficult to communicate with. She denied any chest pain at the time. Patient has chronic diarrhea since her colon surgery in 2003. Per the granddaughter she was doing well till about 3 months ago when she started having significant weight loss and poor by mouth intake possibly related to esophageal stricture and the fact that she was taking care of her sick family member at home. She has been advised a PEG tube per the granddaughter because of her poor nutritional status and poor by mouth intake. She has had problems with hyponatremia off and on for a while. Patient's granddaughter is very concerned about her poor nutritional status. 02/05: Tolerating nasal cannula. Underwent PEG tube placement by IR today. Sodium 122. 02/06 No events overnight. s/p PEG tube placement yesterday. Sodium level 131 this morning 02/07 No events overnight. On 50% VM with good sats. 02/08 No events overnight. Afebrile . Off BIPAP. Objective Vital Signs Date Time Temp Pulse Resp B/P (MAP) Pulse Ox O2 Delivery O2 Flow Rate FiO2 02/08/17 08:16 94 Nasal Cannula 2.00 02/08/17 06:00 122 02/08/17 04:00 98.4 22 142/70 (94) 02/07/17 08:45 50 Intake and Output 02/08/17 02/08/17 02/09/17 08:00 16:00 00:00 Intake Total 753 ml Output Total 1900 ml Balance -1147 ml Result Diagram: 02/08/17 0413 02/08/17 0413 Other Results Laboratory Tests Test 02/07/17 10:47 02/07/17 11:20 02/07/17 14:30 02/08/17 04:13 Phosphorus Level 1.9 MG/DL 2.3 MG/DL Magnesium Level 1.6 MG/DL 1.7 MG/DL Blood Gas Puncture Site RT BRACHIAL Blood Gas Patient Temperature 98.6 Blood Gas HCO3 32 mmol/L Blood Gas Base Excess 6.1 mmol/L Blood Gas Oxygen Saturation 97 % Arterial Blood pH 7.31 Arterial Blood Partial Pressure CO2 66 mmHg Arterial Blood Partial Pressure O2 125 mmHg Arterial Blood Oxygen Content 12.7 Vol % Arterial Blood Carboxyhemoglobin 0.9 % Arterial Blood Methemoglobin 1.0 % Blood Gas Hemoglobin 9.1 G/DL Oxygen Delivery Device NASAL CANNULA Blood Gas Liter Flow 4 L/M Blood Gas Inspired Oxygen 36 % Potassium Level 3.9 MEQ/L 4.2 MEQ/L White Blood Count 6.7 TH/MM3 Red Blood Count 3.38 MIL/MM3 Hemoglobin 10.4 GM/DL Hematocrit 29.6 % Mean Corpuscular Volume 87.6 FL Mean Corpuscular Hemoglobin 30.8 PG Mean Corpuscular Hemoglobin Concent 35.2 % Red Cell Distribution Width 15.9 % Platelet Count 159 TH/MM3 Mean Platelet Volume 7.1 FL Neutrophils (%) (Auto) 85.5 % Lymphocytes (%) (Auto) 3.4 % Monocytes (%) (Auto) 10.8 % Eosinophils (%) (Auto) 0.1 % Basophils (%) (Auto) 0.2 % Neutrophils # (Auto) 5.7 TH/MM3 Lymphocytes # (Auto) 0.2 TH/MM3 Monocytes # (Auto) 0.7 TH/MM3 Eosinophils # (Auto) 0.0 TH/MM3 Basophils # (Auto) 0.0 TH/MM3 CBC Comment DIFF FINAL Differential Comment Blood Urea Nitrogen 11 MG/DL Creatinine 0.53 MG/DL Random Glucose 172 MG/DL Total Protein 5.7 GM/DL Albumin 2.3 GM/DL Calcium Level 7.8 MG/DL Alkaline Phosphatase 84 U/L Aspartate Amino Transf (AST/SGOT) 8 U/L Alanine Aminotransferase (ALT/SGPT) 11 U/L Total Bilirubin 0.3 MG/DL Sodium Level 138 MEQ/L Chloride Level 96 MEQ/L Carbon Dioxide Level 36.7 MEQ/L Anion Gap 5 MEQ/L Estimat Glomerular Filtration Rate 114 ML/MIN Imaging Last Impressions Chest X-Ray 02/06/17 0000 Signed Impressions: Service Date/Time: Monday, February 06, 2017 18:55 - CONCLUSION: Persistent bibasilar patchy consolidations consistent with atelectasis and/or pneumonia. Julian Mcmahan MD Gastrostomy Tube Placement 02/05/17 0000 Signed Impressions: Service Date/Time: January 16:47 - CONCLUSION: Uncomplicated gastrostomy tube placement as above. Jorje Josue MD Lower Extremity Ultrasound 02/04/17 0000 Signed Impressions: Service Date/Time: Saturday, February 04, 2017 21:13 - CONCLUSION: 1. No evidence of deep venous thrombosis within the lower extremities. 2. Popliteal cyst on the left measuring 2.2 x 1.5 x 0.9 cm. Julian Mcmahan MD Head CT 02/04/17 0000 Signed Impressions: Service Date/Time: Saturday, February 04, 2017 17:50 - CONCLUSION: 1. No acute intracranial abnormality. 2. Tiny fluid level within the right maxillary sinus. Julian Mcmahan MD CT Angiography 02/04/17 0000 Signed Impressions: Service Date/Time: Saturday, February 04, 2017 17:54 - CONCLUSION: 1. No evidence of pulmonary embolism. 2. Bibasilar alveolar consolidations as well as scattered perihilar patchy opacities suggestive of probable pneumonia. Clinical correlation is recommended. 3. 1.7 cm right thyroid nodule. Julian Mcmahan MD Abdomen X-Ray 02/04/17 0000 Signed Impressions: Service Date/Time: , February 05, 2017 05:52 - CONCLUSION: Interval placement of nasogastric tube with the tip in the left mainstem bronchus. Caesar Ramos MD Objective Remarks Elderly female appears cachectic, laying in ICU bed on nasal cannula not in any acute distress. HEENT/Neuro: Pallor present, no icterus, tongue moist, ZEKE, Awake alert oriented 3, nonfocal grossly, moving all 4 extremities Neck: No JVD Chest/pulmonary: On BiPAP with full facemask, good air entry bilaterally, scattered rhonchi, no wheezing Cardiovascular: S1-S2 regular no gallop or murmur GI/abdomen: Soft, nontender, bowel sounds present Extremities: Warm bilaterally, no edema A/P Assessment and Plan 71-year-old female with: Encephalopathy Acute respiratory failure Probable recurrent aspiration pneumonia (prehospital) Failure to thrive Hyponatremia Chronic diarrhea History of esophageal stricture status post recent esophageal dilation History of colon cancer Lower extremity edema Plan: Neuro: Monitor neuro status. Avoid sedatives and narcotics. Head CT negative for bleed. CV: Monitor HR and BP keep MAP>65mmHg Pulm: Continue with oxygen keep sat >92% Bronchodilators. check ABG, place on solumedrol 40mg Q8 CT chest with no evidence of PE and shows bibasilar infiltrates concerning for recurrent aspiration pneumonia GI/liver:s/p PEG tube placement by IR 02/05 Continue tube feeds-Jevity 1.5 advance to goal rate 45ml/hr Renal/: Monitor renal function, I/O's, electrolytes replacement as needed. Needs Phos replacement Renal is following. Diurese with Lasix 20mg x1. d/c Cabrera ID: Continue empiric antibiotic coverage with IV Levaquinl. Monitor for signs of infections ( Fever, WBC) d/c Flagyl Endocrine: SSI for glycemic control if needed. Heme-onc: Monitor CBC and coags. Prophylaxis: Pepcid/SCDs. Subcutaneous Lovenox. Palliative care is following Level 2 Paramjit,Alaa MD Feb 08, 2017 09:33
[2017-02-08] MEDS ORDERED: FUROSEMIDE 20 MG/2 ML VIAL IV PUSH ONE (10:00)
[2017-02-08] MEDS: methylPREDNISolone SOD SUCC 40 MG/1 ML VIAL IV PUSH SCH ×2 (14:30→21:05)
[2017-02-08] MEDS: LEVOFLOXACIN 750 MG PREMIX INJ 150 ML IV SCH (21:05)
[2017-02-08] MEDS: ENOXAPARIN SODIUM 40 MG/0.4 ML SYRINGE SQ SCH (21:05)
[2017-02-08] MEDS: ALPRAZolam 0.5 MG TAB PO PRN (22:14)
[2017-02-09] VITALS (18 sets, daily range): BP systolic 128–158; BP diastolic 64–79; PULSE 97–117; RESP 20–31; TEMP 97.5–98.3; O2SAT 95–100
[2017-02-09] MEDS: RESP: ALBUTEROL 2.5 MG/IPRATROPIUM 0.5 MG NEB (SCH) NEB ×6 (01:20→19:47)
[2017-02-09] MEDS: methylPREDNISolone SOD SUCC 40 MG/1 ML VIAL IV PUSH SCH ×3 (05:15→20:44)
[2017-02-09] MEDS: INSULIN ASPART SUPPLEMENTAL SCALE SQ SCH ×3 (05:15→18:00)
[2017-02-09 05:48] LABS: AUTOMATED NEUTROPHIL # 4.4 TH/MM3 (1.8-7.7); BASOPHIL % 0.1 % (0.0-2.0); HEMATOCRIT 32.3 % (35.0-46.0); HEMOGLOBIN 10.8 GM/DL (11.6-15.3); LYMPH % 4.2 % (9.0-44.0); LYMPHOCYTE # 0.2 TH/MM3 (1.0-4.8); MEAN CELL VOLUME 88.2 FL (80.0-100.0); MEAN CORPUSCULAR HEMOGLOBIN 29.6 PG (27.0-34.0); MEAN CORPUSCULAR HGB CONC 33.5 % (32.0-36.0); MEAN PLATELET VOLUME 7.1 FL (7.0-11.0); MONO % 5.6 % (0.0-8.0); MONOCYTE # 0.3 TH/MM3 (0-0.9); NEUT % 90.1 % (16.0-70.0); PLATELET COUNT 161 TH/MM3 (150-450); RED BLOOD COUNT 3.67 MIL/MM3 (4.00-5.30); RED CELL DISTRIBUTION WIDTH 15.8 % (11.6-17.2); WHITE BLOOD COUNT 4.8 TH/MM3 (4.0-11.0)
[2017-02-09 06:01] LABS: BICARBONATE 44.4 MEQ/L (21.0-32.0); CALCIUM 8.3 MG/DL (8.5-10.1); CREATININE 0.51 MG/DL (0.50-1.00)
[2017-02-09] MEDS: CHLORHEXIDINE 0.12% (ORAL KIT) 15 ML CUP MT SCH ×2 (08:00→20:00)
--- NOTE | 2017-02-09 08:32 | HHI.CCPN ---
Subjective Remarks/Hospital Course 02/04: 71-year-old female with a medical history significant for colon cancer in 2003 for which she underwent partial colon resection and chemotherapy, esophageal stricture with significant weight loss due to poor by mouth intake for which she was hospitalized in [place] in November 2016 for 2 weeks treated for pneumonia and subsequently evaluated for dysphagia and was found to have a sufficient stricture for which she was transferred to [facility] in [place] and underwent esophageal dilatation and was subsequently discharged 2 weeks later on a pured diet. Patient moved to [place] with her granddaughter and a few beats VAC was admitted to [facility] for worsening shortness of breath and was diagnosed with a pneumonia, hyponatremia. She was treated with antibiotics and subsequently discharged home however the following day had to be readmitted at [facility] for unresolved shortness of breath where she was hospitalized for a week and subsequently discharged to assisted 3 days prior to this admission. Patient's by mouth intake has been poor since her discharge 3 days back according to her granddaughter as the pured diet at the assisted is to take. Patient was found to have altered mental status today and was found slumped to one side with poor respirations. EMS was called and patient was noted to have O2 sats in the 60s. She was transported to the emergency room where she was placed on BiPAP for respiratory distress with hypoxic respiratory failure. She was also noted to be hypertensive on arrival with systolic blood pressure in the 200s. Patient was also found to have a sodium of 118. I was contacted by ER physician and accepted patient for admission to the ICU. When I evaluated the patient in the ER she was on BiPAP with full facemask. History was obtained by discussion with patient's granddaughter was at the bedside. Patient was much more awake at this time and trying to communicate however in view of BiPAP requirement was difficult to communicate with. She denied any chest pain at the time. Patient has chronic diarrhea since her colon surgery in 2003. Per the granddaughter she was doing well till about 3 months ago when she started having significant weight loss and poor by mouth intake possibly related to esophageal stricture and the fact that she was taking care of her sick family member at home. She has been advised a PEG tube per the granddaughter because of her poor nutritional status and poor by mouth intake. She has had problems with hyponatremia off and on for a while. Patient's granddaughter is very concerned about her poor nutritional status. 02/05: Tolerating nasal cannula. Underwent PEG tube placement by IR today. Sodium 122. 02/06 No events overnight. s/p PEG tube placement yesterday. Sodium level 131 this morning 02/07 No events overnight. On 50% VM with good sats. 02/08 No events overnight. Afebrile . Off BIPAP. 02/09 Patient is on BIPAP 02/03 with 45% FIO2> Afebrile. Objective Vital Signs Date Time Temp Pulse Resp B/P (MAP) Pulse Ox O2 Delivery O2 Flow Rate FiO2 02/09/17 06:00 109 02/09/17 04:29 99 BiPAP 45 02/09/17 04:00 98.0 20 140/67 (91) 02/08/17 08:16 2.00 Intake and Output 02/09/17 02/09/17 02/10/17 08:00 16:00 00:00 Intake Total 501 ml Output Total 600 ml Balance -99 ml Result Diagram: 02/09/17 0515 02/09/17 0515 Other Results Laboratory Tests Test 02/08/17 10:38 02/08/17 14:09 02/08/17 19:46 02/09/17 05:15 Blood Gas Puncture Site RT RADIAL RT BRACHIAL Blood Gas Patient Temperature 98.6 98.6 Blood Gas HCO3 40 mmol/L 41 mmol/L Blood Gas Base Excess 12.9 mmol/L 15.5 mmol/L Blood Gas Oxygen Saturation 97 % 92 % Arterial Blood pH 7.29 7.45 Arterial Blood Partial Pressure CO2 84 mmHg 59 mmHg Arterial Blood Partial Pressure O2 132 mmHg 66 mmHg Arterial Blood Oxygen Content 13.6 Vol % 13.0 Vol % Arterial Blood Carboxyhemoglobin 1.1 % 1.4 % Arterial Blood Methemoglobin 0.9 % 0.9 % Blood Gas Hemoglobin 9.8 G/DL 9.9 G/DL Oxygen Delivery Device NASAL CANNULA BIPAP Blood Gas Liter Flow 2 L/M Blood Gas Inspired Oxygen 28 % 35 % Blood Gas Ventilator Setting IPAP+12/EPAP+6 Phosphorus Level 3.6 MG/DL White Blood Count 4.8 TH/MM3 Red Blood Count 3.67 MIL/MM3 Hemoglobin 10.8 GM/DL Hematocrit 32.3 % Mean Corpuscular Volume 88.2 FL Mean Corpuscular Hemoglobin 29.6 PG Mean Corpuscular Hemoglobin Concent 33.5 % Red Cell Distribution Width 15.8 % Platelet Count 161 TH/MM3 Mean Platelet Volume 7.1 FL Neutrophils (%) (Auto) 90.1 % Lymphocytes (%) (Auto) 4.2 % Monocytes (%) (Auto) 5.6 % Eosinophils (%) (Auto) 0.0 % Basophils (%) (Auto) 0.1 % Neutrophils # (Auto) 4.4 TH/MM3 Lymphocytes # (Auto) 0.2 TH/MM3 Monocytes # (Auto) 0.3 TH/MM3 Eosinophils # (Auto) 0.0 TH/MM3 Basophils # (Auto) 0.0 TH/MM3 CBC Comment DIFF FINAL Differential Comment Blood Urea Nitrogen 21 MG/DL Creatinine 0.51 MG/DL Random Glucose 206 MG/DL Calcium Level 8.3 MG/DL Sodium Level 142 MEQ/L Potassium Level 4.2 MEQ/L Chloride Level 95 MEQ/L Carbon Dioxide Level 44.4 MEQ/L Anion Gap 3 MEQ/L Estimat Glomerular Filtration Rate 119 ML/MIN Imaging Last Impressions Chest X-Ray 02/06/17 0000 Signed Impressions: Service Date/Time: Monday, February 06, 2017 18:55 - CONCLUSION: Persistent bibasilar patchy consolidations consistent with atelectasis and/or pneumonia. Julian Mcmahan MD Gastrostomy Tube Placement 02/05/17 0000 Signed Impressions: Service Date/Time: January 16:47 - CONCLUSION: Uncomplicated gastrostomy tube placement as above. Jorje Josue MD Lower Extremity Ultrasound 02/04/17 0000 Signed Impressions: Service Date/Time: Saturday, February 04, 2017 21:13 - CONCLUSION: 1. No evidence of deep venous thrombosis within the lower extremities. 2. Popliteal cyst on the left measuring 2.2 x 1.5 x 0.9 cm. Julian Mcmahan MD Head CT 02/04/17 0000 Signed Impressions: Service Date/Time: Saturday, February 04, 2017 17:50 - CONCLUSION: 1. No acute intracranial abnormality. 2. Tiny fluid level within the right maxillary sinus. Julian Mcmahan MD CT Angiography 02/04/17 0000 Signed Impressions: Service Date/Time: Saturday, February 04, 2017 17:54 - CONCLUSION: 1. No evidence of pulmonary embolism. 2. Bibasilar alveolar consolidations as well as scattered perihilar patchy opacities suggestive of probable pneumonia. Clinical correlation is recommended. 3. 1.7 cm right thyroid nodule. Julian Mcmahan MD Abdomen X-Ray 02/04/17 0000 Signed Impressions: Service Date/Time: January 05:52 - CONCLUSION: Interval placement of nasogastric tube with the tip in the left mainstem bronchus. Caesar Ramos MD Objective Remarks GENERAL: Patient is 71 yo lying in bed in mild resp distress SKIN: Warm and dry. HEAD: Normocephalic. EYES: No scleral icterus. No injection or drainage. NECK: Supple, trachea midline. No JVD or lymphadenopathy. CARDIOVASCULAR: Tachycardic without murmurs, gallops, or rubs. RESPIRATORY: Breath sounds equal bilaterally. No accessory muscle use. GASTROINTESTINAL: Abdomen soft, non-tender, nondistended. MUSCULOSKELETAL: No cyanosis, or edema. A/P Assessment and Plan 71-year-old female with: Encephalopathy Acute respiratory failure Probable recurrent aspiration pneumonia (prehospital) Failure to thrive Hyponatremia Chronic diarrhea History of esophageal stricture status post recent esophageal dilation History of colon cancer Lower extremity edema Plan: Neuro: Monitor neuro status. Avoid sedatives and narcotics. Head CT negative for bleed. CV: Place on Lopressor 12.5mg BID-Monitor HR and BP keep MAP>65mmHg Pulm: Continue with oxygen keep sat >92% Bronchodilators. On solumedrol 40mg Q8, check CXR CT chest with no evidence of PE and shows bibasilar infiltrates concerning for recurrent aspiration pneumonia GI/liver:s/p PEG tube placement by IR 02/05 Continue tube feeds-Jevity 1.5 @ 45ml/hr Renal/: Monitor renal function, I/O's, electrolytes replacement as needed. Needs Phos replacement Renal is following. Give Diamox 250mg IV x1 ID: Continue empiric antibiotic coverage with IV Levaquinl. Monitor for signs of infections ( Fever, WBC) Endocrine: SSI for glycemic control if needed. Heme-onc: Monitor CBC and coags. Prophylaxis: Pepcid/SCDs. Subcutaneous Lovenox. Palliative care is following Level 2 Varun Yusuf MD Feb 09, 2017 08:32
[2017-02-09] MEDS: PANTOPRAZOLE SODIUM 40 MG VIAL IV PUSH SCH (09:00)
[2017-02-09] MEDS: SODIUM CHLORIDE 0.9% FLUSH 10 ML FLUSH IV FLUSH SCH ×2 (09:00→20:44)
--- NOTE | 2017-02-09 09:35 | RADRPT ---
EXAM DATE/TIME: 02/09/2017 08:41 [facility] COMPARISON: CHEST SINGLE AP, February 06, 2017, 18:55. INDICATIONS : Short of breath. MEDICAL HISTORY : Hypertension. SURGICAL HISTORY : None. ENCOUNTER: Subsequent ACUITY: 4 - 6 days PAIN SCORE: Non-responsive. LOCATION: Bilateral chest FINDINGS: A single view of the chest demonstrates bibasilar consolidating segmental airspace disease. At bronch ograms are seen in the left base. Mid-upper lung garrido are clear. Heart and mediastinal structures are stable. CONCLUSION: Bibasilar consolidating airspace disease; unchanged. Michoacano Myers MD on February 09, 2017 at 9:32 Board Certified Radiologist. This report was verified electronically.
[2017-02-09] MEDS: METOPROLOL TARTRATE 25 MG TAB PO SCH ×2 (09:36→20:44)
[2017-02-09] MEDS: ALPRAZolam 0.5 MG TAB PO PRN ×2 (15:24→23:46)
--- NOTE | 2017-02-09 15:41 | HHI.HCPN ---
Reason for visit a. To assist with evaluation and management of symptoms including:shortness of breath, decreased oral intake, debility b. To assist medical decision maker(s) with: better understanding of current medical conditions; weighing benefits/burdens of medical treatment options; making medical treatment decisions. Subjective/Interval History Patient seen and examined in her room. Patient`s granddaughter who is her HCS also at bedside during visit. Patient wake, lethargic and following commands with all 4 extremities. Patient talking but difficulty to understand since she is on a BiPAP machine. Patient denies pain by shaking head. Patient continues gets hypercapnic whenever she gets weaned off BiPAP. She is currently on BiPAP 15/5/50%. Chest x-ray today revealing bibasilar consolidating airspace disease, unchanged. O2 saturation mid to high 90s. Patient remains afebrile. Heart rate 90s to low 100. SBP 120s to 150s. Laboratory workup today revealing WBC 4.8, hemoglobin 10.8, hematocrit 32.3, platelet count 161, sodium 142, potassium 4.2, BUN 21, creatinine 0.51. Patient receiving Jevity 1.5 at 45 mL/hr. Speech therapy consulted , unable to evaluate patient since she is on BiPAP. Physical therapy consulted, recommended PT at rehabilitation. Patient's granddaughter, requesting pulmonology consult-patient known to Dr. Thakkar. Patient`s HCS still hopeful for patient`s improvement. Case discussed with bedside RN and Dr. He. Family/friend interactions Patient`s granddaughter at bedside. . Advance Directives Living Will: Never completed Health Care Surrogate: Copy in medical record Advance Directive Specifics Date completed: December 19, 2016 . Health Care Surrogate(s): Granddaughter-[facility]- Connie Cotton- [phone] Alternate [facility]- Freddy Dixonaley [phone] . Objective Vital Signs Date Time Temp Pulse Resp B/P (MAP) Pulse Ox O2 Delivery O2 Flow Rate FiO2 02/09/17 14:00 110 02/09/17 12:00 97.6 97 21 136/70 (92) 100 02/09/17 12:00 97 02/09/17 10:04 100 50 02/09/17 10:00 109 02/09/17 08:46 97 Nasal Cannula 4.00 02/09/17 08:00 112 02/09/17 08:00 97.5 112 27 153/75 (101) 100 02/09/17 06:00 109 02/09/17 04:29 99 BiPAP 45 02/09/17 04:29 99 45 02/09/17 04:00 108 02/09/17 04:00 98.0 108 20 140/67 (91) 100 02/09/17 02:00 109 02/09/17 01:23 98 45 02/09/17 00:00 98.0 113 22 128/64 (85) 99 02/09/17 00:00 113 02/08/17 22:00 122 02/08/17 20:00 98.0 118 29 140/69 (92) 97 02/08/17 20:00 118 02/08/17 19:53 97 45 02/08/17 18:00 119 02/08/17 16:00 129 02/08/17 16:00 98.0 129 28 138/94 (109) 90 Intake & Output 02/09/17 02/09/17 06:59 18:59 Intake Total 751 ml Output Total 600 ml Balance 151 ml Intake IV Total 250 ml Tube Feeding 501 ml Output Urine Total 600 ml Physical Exam CONSTITUTIONAL/GENERAL: This is a cachectic, ill-looking elderly patient, appears older than stated age, lethargic, weak with minimal verbal response TUBES/LINES/DRAINS: BiPAP, Cabrera catheter, PIV, PEG tube SKIN: No jaundice. Ecchymoses on upper extremities-B2 skin tear to left elbow. Skin temperature appropriate. Not diaphoretic. HEAD: Atraumatic. Normocephalic. EYES: Pupils equal and round and reactive. Extraocular motions intact. No scleral icterus. No injection or drainage. Fundi not examined. ENT: Hearing grossly normal. Nose without bleeding or purulent drainage. NECK: Trachea midline. Supple, nontender. CARDIOVASCULAR: Regular rate and rhythm without murmurs, gallops, or rubs . No JVD. Peripheral pulses symmetric. Weeping, pitting edema to bilateral lower extremities RESPIRATORY/CHEST: Symmetric, mildly labored respirations. Rhonchi to auscultation. Diminished Breath sounds equal bilaterally. No wheezes. GASTROINTESTINAL: Abdomen soft, non-tender, nondistended. Bowel sounds present. PEG tube- Jevity 1.5 infusing GENITOURINARY: Without palpable bladder distension. Cabrera catheter in place. MUSCULOSKELETAL: Extremities without clubbing. No joint tenderness or effusion noted. No calf tenderness. No mottling. Improved bilateral lower extremities edema. NEUROLOGICAL: Lethargic, minimal response. Follows commands. Spontaneously moving all 4 extremities. PSYCHIATRIC: Unable to assess, lethargic with very minimal verbal response. . Diagnostic Tests Laboratory Laboratory Tests Test 02/06/17 18:52 02/07/17 06:06 02/07/17 10:47 02/07/17 11:20 Blood Gas Puncture Site LT RADIAL RT BRACHIAL Blood Gas Patient Temperature 98.6 98.6 Blood Gas HCO3 30 mmol/L (22-26) 32 mmol/L (22-26) Blood Gas Base Excess 5.0 mmol/L (-2-2) 6.1 mmol/L (-2-2) Blood Gas Oxygen Saturation 94 % (90-100) 97 % (90-100) Arterial Blood pH 7.36 (7.380-7.420) 7.31 (7.380-7.420) Arterial Blood Partial Pressure CO2 56 mmHg (38-42) 66 mmHg (38-42) Arterial Blood Partial Pressure O2 82 mmHg (61-120) 125 mmHg (61-120) Arterial Blood Oxygen Content 13.5 Vol % (12.0-20.0) 12.7 Vol % (12.0-20.0) Arterial Blood Carboxyhemoglobin 1.1 % (0-4) 0.9 % (0-4) Arterial Blood Methemoglobin 1.1 % (0-2) 1.0 % (0-2) Blood Gas Hemoglobin 10.2 G/DL (12.0-16.0) 9.1 G/DL (12.0-16.0) Oxygen Delivery Device BIPAP NASAL CANNULA Blood Gas Ventilator Setting IPAP10/EPAP5 Blood Gas Inspired Oxygen 60 % 36 % White Blood Count 5.1 TH/MM3 (4.0-11.0) Red Blood Count 3.08 MIL/MM3 (4.00-5.30) Hemoglobin 9.5 GM/DL (11.6-15.3) Hematocrit 27.3 % (35.0-46.0) Mean Corpuscular Volume 88.7 FL (80.0-100.0) Mean Corpuscular Hemoglobin 31.0 PG (27.0-34.0) Mean Corpuscular Hemoglobin Concent 34.9 % (32.0-36.0) Red Cell Distribution Width 15.6 % (11.6-17.2) Platelet Count 156 TH/MM3 (150-450) Mean Platelet Volume 6.9 FL (7.0-11.0) Neutrophils (%) (Auto) 80.0 % (16.0-70.0) Lymphocytes (%) (Auto) 7.0 % (9.0-44.0) Monocytes (%) (Auto) 12.8 % (0.0-8.0) Eosinophils (%) (Auto) 0.0 % (0.0-4.0) Basophils (%) (Auto) 0.2 % (0.0-2.0) Neutrophils # (Auto) 4.1 TH/MM3 (1.8-7.7) Lymphocytes # (Auto) 0.4 TH/MM3 (1.0-4.8) Monocytes # (Auto) 0.7 TH/MM3 (0-0.9) Eosinophils # (Auto) 0.0 TH/MM3 (0-0.4) Basophils # (Auto) 0.0 TH/MM3 (0-0.2) CBC Comment DIFF FINAL Differential Comment Blood Urea Nitrogen 11 MG/DL (7-18) Creatinine 0.41 MG/DL (0.50-1.00) Random Glucose 163 MG/DL (74-106) Calcium Level 7.9 MG/DL (8.5-10.1) Sodium Level 137 MEQ/L (136-145) Potassium Level 3.0 MEQ/L (3.5-5.1) Chloride Level 98 MEQ/L (98-107) Carbon Dioxide Level 33.2 MEQ/L (21.0-32.0) Anion Gap 6 MEQ/L (5-15) Estimat Glomerular Filtration Rate 153 ML/MIN (>89) Phosphorus Level 1.8 MG/DL (2.5-4.9) 1.9 MG/DL (2.5-4.9) Magnesium Level 1.6 MG/DL (1.5-2.5) Blood Gas Liter Flow 4 L/M Test 02/07/17 14:30 02/08/17 04:13 02/08/17 10:38 02/08/17 14:09 Potassium Level 3.9 MEQ/L (3.5-5.1) 4.2 MEQ/L (3.5-5.1) White Blood Count 6.7 TH/MM3 (4.0-11.0) Red Blood Count 3.38 MIL/MM3 (4.00-5.30) Hemoglobin 10.4 GM/DL (11.6-15.3) Hematocrit 29.6 % (35.0-46.0) Mean Corpuscular Volume 87.6 FL (80.0-100.0) Mean Corpuscular Hemoglobin 30.8 PG (27.0-34.0) Mean Corpuscular Hemoglobin Concent 35.2 % (32.0-36.0) Red Cell Distribution Width 15.9 % (11.6-17.2) Platelet Count 159 TH/MM3 (150-450) Mean Platelet Volume 7.1 FL (7.0-11.0) Neutrophils (%) (Auto) 85.5 % (16.0-70.0) Lymphocytes (%) (Auto) 3.4 % (9.0-44.0) Monocytes (%) (Auto) 10.8 % (0.0-8.0) Eosinophils (%) (Auto) 0.1 % (0.0-4.0) Basophils (%) (Auto) 0.2 % (0.0-2.0) Neutrophils # (Auto) 5.7 TH/MM3 (1.8-7.7) Lymphocytes # (Auto) 0.2 TH/MM3 (1.0-4.8) Monocytes # (Auto) 0.7 TH/MM3 (0-0.9) Eosinophils # (Auto) 0.0 TH/MM3 (0-0.4) Basophils # (Auto) 0.0 TH/MM3 (0-0.2) CBC Comment DIFF FINAL Differential Comment Blood Urea Nitrogen 11 MG/DL (7-18) Creatinine 0.53 MG/DL (0.50-1.00) Random Glucose 172 MG/DL (74-106) Total Protein 5.7 GM/DL (6.4-8.2) Albumin 2.3 GM/DL (3.4-5.0) Calcium Level 7.8 MG/DL (8.5-10.1) Phosphorus Level 2.3 MG/DL (2.5-4.9) Magnesium Level 1.7 MG/DL (1.5-2.5) Alkaline Phosphatase 84 U/L (45-117) Aspartate Amino Transf (AST/SGOT) 8 U/L (15-37) Alanine Aminotransferase (ALT/SGPT) 11 U/L (10-53) Total Bilirubin 0.3 MG/DL (0.2-1.0) Sodium Level 138 MEQ/L (136-145) Chloride Level 96 MEQ/L (98-107) Carbon Dioxide Level 36.7 MEQ/L (21.0-32.0) Anion Gap 5 MEQ/L (5-15) Estimat Glomerular Filtration Rate 114 ML/MIN (>89) Blood Gas Puncture Site RT RADIAL RT BRACHIAL Blood Gas Patient Temperature 98.6 98.6 Blood Gas HCO3 40 mmol/L (22-26) 41 mmol/L (22-26) Blood Gas Base Excess 12.9 mmol/L (-2-2) 15.5 mmol/L (-2-2) Blood Gas Oxygen Saturation 97 % (90-100) 92 % (90-100) Arterial Blood pH 7.29 (7.380-7.420) 7.45 (7.380-7.420) Arterial Blood Partial Pressure CO2 84 mmHg (38-42) 59 mmHg (38-42) Arterial Blood Partial Pressure O2 132 mmHg (61-120) 66 mmHg (61-120) Arterial Blood Oxygen Content 13.6 Vol % (12.0-20.0) 13.0 Vol % (12.0-20.0) Arterial Blood Carboxyhemoglobin 1.1 % (0-4) 1.4 % (0-4) Arterial Blood Methemoglobin 0.9 % (0-2) 0.9 % (0-2) Blood Gas Hemoglobin 9.8 G/DL (12.0-16.0) 9.9 G/DL (12.0-16.0) Oxygen Delivery Device NASAL CANNULA BIPAP Blood Gas Liter Flow 2 L/M Blood Gas Inspired Oxygen 28 % 35 % Blood Gas Ventilator Setting IPAP+12/EPAP+6 Test 02/08/17 19:46 02/09/17 05:15 02/09/17 09:50 02/09/17 11:18 Phosphorus Level 3.6 MG/DL (2.5-4.9) White Blood Count 4.8 TH/MM3 (4.0-11.0) Red Blood Count 3.67 MIL/MM3 (4.00-5.30) Hemoglobin 10.8 GM/DL (11.6-15.3) Hematocrit 32.3 % (35.0-46.0) Mean Corpuscular Volume 88.2 FL (80.0-100.0) Mean Corpuscular Hemoglobin 29.6 PG (27.0-34.0) Mean Corpuscular Hemoglobin Concent 33.5 % (32.0-36.0) Red Cell Distribution Width 15.8 % (11.6-17.2) Platelet Count 161 TH/MM3 (150-450) Mean Platelet Volume 7.1 FL (7.0-11.0) Neutrophils (%) (Auto) 90.1 % (16.0-70.0) Lymphocytes (%) (Auto) 4.2 % (9.0-44.0) Monocytes (%) (Auto) 5.6 % (0.0-8.0) Eosinophils (%) (Auto) 0.0 % (0.0-4.0) Basophils (%) (Auto) 0.1 % (0.0-2.0) Neutrophils # (Auto) 4.4 TH/MM3 (1.8-7.7) Lymphocytes # (Auto) 0.2 TH/MM3 (1.0-4.8) Monocytes # (Auto) 0.3 TH/MM3 (0-0.9) Eosinophils # (Auto) 0.0 TH/MM3 (0-0.4) Basophils # (Auto) 0.0 TH/MM3 (0-0.2) CBC Comment DIFF FINAL Differential Comment Blood Urea Nitrogen 21 MG/DL (7-18) Creatinine 0.51 MG/DL (0.50-1.00) Random Glucose 206 MG/DL (74-106) Calcium Level 8.3 MG/DL (8.5-10.1) Sodium Level 142 MEQ/L (136-145) Potassium Level 4.2 MEQ/L (3.5-5.1) Chloride Level 95 MEQ/L (98-107) Carbon Dioxide Level 44.4 MEQ/L (21.0-32.0) Anion Gap 3 MEQ/L (5-15) Estimat Glomerular Filtration Rate 119 ML/MIN (>89) Blood Gas Puncture Site RT RADIAL RT RADIAL Blood Gas Patient Temperature 98.6 98.6 Blood Gas HCO3 46 mmol/L (22-26) 46 mmol/L (22-26) Blood Gas Base Excess 18.7 mmol/L (-2-2) 19.0 mmol/L (-2-2) Blood Gas Oxygen Saturation 98 % (90-100) 97 % (90-100) Arterial Blood pH 7.30 (7.380-7.420) 7.34 (7.380-7.420) Arterial Blood Partial Pressure CO2 95 mmHg (38-42) 87 mmHg (38-42) Arterial Blood Partial Pressure O2 309 mmHg (61-120) 117 mmHg (61-120) Arterial Blood Oxygen Content 14.4 Vol % (12.0-20.0) 13.8 Vol % (12.0-20.0) Arterial Blood Carboxyhemoglobin 0.8 % (0-4) 1.0 % (0-4) Arterial Blood Methemoglobin 0.9 % (0-2) 0.8 % (0-2) Blood Gas Hemoglobin 9.9 G/DL (12.0-16.0) 10.0 G/DL (12.0-16.0) Oxygen Delivery Device NASAL CANNULA BIPAP Blood Gas Liter Flow 4 L/M Blood Gas Ventilator Setting IPAP 15 EPAP6 Blood Gas Inspired Oxygen 45 % Result Diagram: 02/09/17 0515 02/09/17 0515 Imaging Last 48 hours Impressions Chest X-Ray 02/09/17 0000 Signed Impressions: Service Date/Time: Thursday, February 09, 2017 08:41 - CONCLUSION: Bibasilar consolidating airspace disease; unchanged. Michoacano Myers MD Procedures 02/05/17 PEG tube placement . Assessment and Plan Disease Oriented Problem List: (1) Sepsis (2) Hyponatremia (3) Pneumonia (4) Hypoxia Symptom Scale: (1) Shortness of breath Comment: Multifactorial. Patient has had multiple hospitalizations for shortness of breath/pneumonia. Mild respiratory distress. On BiPAP. . (2) Decreased oral intake Comment: History of dysphagia status post dilatation. Patient was currently on pured diet in senior care. His lost approximately 25 pounds in 2 months. Now has a PEG Tube-receiving TF. . (3) Debility Comment: Progressive. Patient has had prolonged hospitalization in 4 different facilities since November 2016. Since November she has been hospitalized approximately 5 times. Patient was [place] recently [place] [facility]. Patient has also lost weight significantly. Has not been able to participate in physical therapy due to her illness. Patient remains at high risk for deterioration if she continues to have shortness of breath, which will limit her participation in physical therapy. PT was consulted- recommending PT at rehab. . Pertinent Non-Medical Issues Psychosocial: Spiritual: Legal: Ethical issues impacting care: Important Contacts Granddaughter-[facility]- Connie Cotton- [phone] Alternate [facility]- Freddy Cotton [phone] Daughter- Flor Bennett [phone] . Prognosis Mrs Knapp is a 71 years old female with a past medical history of colon cancer, esophageal strictures, pneumonia and anxiety. Patient has had multiple hospitalizations for persistent pneumonia, hyponatremia and dysphagia. She was recently discharged from [facility] to [place] [facility] [place]. Patient presented via EMS to [facility] on 02/04/17 after she was found slumped over, with cyanosis of limbs and in respiratory distress at the [facility]. Patient`s O2 saturation were in the 80s. Given ongoing comorbidities and recent multiple hospitalizations, patient remains at high risk for complications, deterioration in decline. . Code Status: Full Code Plan PLAN: Legal decision maker: Patient does not appear to have clear understanding and insight of her clinical condition. Recommending joint decision making with her granddaughter Connie Cotton. Her alternate HCS- Freddy Cotton. Goals: 02/09/17 Remain aggressive. Patient's granddaughter, requesting pulmonology consult-patient known to Dr. Thakkar. Patient`s HCS still hopeful for patient`s improvement. CODE STATUS: Full code SYMPTOMS: * Shortness of breath:Multifactorial. Patient has had multiple hospitalizations for shortness of breath/pneumonia. Chest x-ray revealed a space infiltrate in right base, with possible small effusion. Mild respiratory distress noted. Received antibiotics in the ER. Patient continues gets hypercapnic whenever she gets weaned off BiPAP. She is currently on BiPAP 15/5/ 50%. * Decreased oral intake:History of dysphagia status post dilatation. Patient was currently on pured diet in senior care. She lost approximately 25 pounds in 2 months. Recommending swallowing evaluation by speech therapy. Patient failed swallow evaluation today. GI consulted. NG tube attempted to be placed at bedside but unsuccessful. TF infusing via PEG. Speech therapy consulted. . * Debility:Progressive. Patient has had prolonged hospitalization in 4 different facilities since November 2016. Since November she has been hospitalized approximately 5 times. Patient was [place] recently [place] [facility] [place]. Patient has also lost weight significantly. Has not been able to participate in physical therapy due to her illness. Patient remains at high risk for deterioration if she continues to have shortness of breath, which will limit her participation in physical therapy. Patient may benefit from physical therapy. Palliative care will continue to follow the patient during hospital course as condition evolves, to assist patient/decision-maker with understanding of their medical conditions, weighing benefits/burdens of treatment options, for clarification of goals of treatment. Additionally will assist with any symptoms of palliative concern. . Julianne More Feb 09, 2017 15:41
[2017-02-09] MEDS: ENOXAPARIN SODIUM 40 MG/0.4 ML SYRINGE SQ SCH (20:31)
[2017-02-09] MEDS: LEVOFLOXACIN 750 MG PREMIX INJ 150 ML IV SCH (20:44)
[2017-02-10] VITALS (20 sets, daily range): BP systolic 59–145; BP diastolic 41–71; PULSE 93–111; RESP 16–65; TEMP 97.3–99.8; O2SAT 79–100
[2017-02-10] MEDS: RESP: ALBUTEROL 2.5 MG/IPRATROPIUM 0.5 MG NEB (SCH) NEB ×5 (00:22→20:23)
[2017-02-10] MEDS: INSULIN ASPART SUPPLEMENTAL SCALE SQ SCH ×3 (01:34→11:56)
--- NOTE | 2017-02-10 02:36 | RADRPT ---
EXAM DATE/TIME: 02/10/2017 02:02 [facility] COMPARISON: CHEST SINGLE AP, February 09, 2017, 8:41. INDICATIONS : Post intubation. MEDICAL HISTORY : Hypertension. SURGICAL HISTORY : None. ENCOUNTER: Subsequent ACUITY: 1 week PAIN SCORE: Non-responsive. LOCATION: Bilateral chest FINDINGS: Interval placement of endotracheal tube extends approximately 2.2 cm and the right main bronchus. Th ere is persistent dense consolidation left lower lung and patchy infiltrates in the right infrahilar region. There also new areas of confluent airspace opacity in the lateral left midlung. No evidence of pneumothorax. The heart is normal size. CONCLUSION: 1. Intubation of right main bronchus. The tube needs to be withdrawn at least 4 cm. 2. Persistent bilateral lower lobe consolidation and new areas of opacity in the lateral left lung. Justin Lawson MD on February 10, 2017 at 2:34 Board Certified Radiologist. This report was verified electronically.
[2017-02-10] MEDS ORDERED: MIDAZOLAM 100 MG/100 ML INJ 100 ML IV PRN (03:15)
[2017-02-10] MEDS: fentaNYL DRIP 250 ML IV PRN (03:20)
[2017-02-10] MEDS: CHLORHEXIDINE GLUCONATE 2 % 1 PACK (2 CLOTHS) TOP SCH (04:00)
--- NOTE | 2017-02-10 04:22 | PD.PROCEDR ---
Procedure Note Procedure Endotracheal Intubation A time-out was completed verifying correct patient, procedure, site, positioning , and special equipment if applicable. The patient was placed in a flat position. Sedation was obtained using Etomidate 20mg. The patient was easily ventilated using an ambu bag. The [employer]/ MAC 4 BLADE was used and inserted into the oropharynx at which time there was a Grade 1 view of the vocal cords. A 8-bulgarian endotracheal tube was inserted and visualized going through the vocal cords. The stylette was removed. Colorimetric change was visualized on the CO2 meter. Breath sounds were heard in both lung garrido equally. The endotracheal tube was placed at 23 cm, measured at the teeth. A chest x-ray was ordered to assess for pneumothorax and verify endotrachealtube placement. Estimated Blood Loss: 0 The patient tolerated the procedure well and there were no complications. Louie Frausto MD Feb 10, 2017 04:22
[2017-02-10] MEDS ORDERED: VANCOMYCIN INJ 1,000 MG in SODIUM CHLOR 0.9% 250 ML INJ 250 ML IV ONE (05:30)
[2017-02-10] MEDS ORDERED: Vancomycin Consult Pharmacy 1 EA OTHER SCH (05:30)
[2017-02-10] MEDS ORDERED: VANCOMYCIN INJ 800 MG in SODIUM CHLOR 0.9% 250 ML INJ 250 ML IV SCH (06:00)
[2017-02-10] MEDS ORDERED: ALBUMIN 5% INJ 500 ML IV ONE (06:00)
[2017-02-10] MEDS: methylPREDNISolone SOD SUCC 40 MG/1 ML VIAL IV PUSH SCH ×3 (06:14→21:45)
[2017-02-10] MEDS: CHLORHEXIDINE 0.12% (ORAL KIT) 15 ML CUP MT SCH ×2 (07:54→19:55)
--- NOTE | 2017-02-10 08:29 | MB ---
cc: NHUNG PICHARDO DATE OF CONSULTATION 02/09/[address] Yusuf. REASON FOR CONSULTATION Evaluate for respiratory failure. HISTORY OF THE PRESENT ILLNESS Ms. Knapp is a pleasant 71-year-old very frail, elderly female from [place]. The patient was diagnosed with cancer of the colon. She had a resection done and received chemotherapy. Recently she was admitted to [facility] because of dysphagia and had esophageal dilation done with a pediatric scope. Her granddaughter brought her over here to live with her and care for her. Up until two months ago the patient was able to live alone, able to take care of herself. She was recently admitted at [facility] with pneumonia. Also she was found to have hyponatremia and recently she went to [facility]. She stayed there for one week. Now she is brought over her by her granddaughter because she slumped and was feeling very weak and her oxygen saturation was low. She was put on BiPAP. She has significant respiratory acidosis somewhat improving with BiPAP. Currently she is on FIO2 of 35%. IMAGING She had a workup done. Her CTA of the chest showed no pulmonary embolism. She has bibasilar alveolar consolidation and scattered perihilar opacities. LABORATORY DATA Her blood gas on 45% BiPAP pH 7.34, PCO2 of 87, PO2 117, bicarbonate 46. Her WBC count 4.8, hemoglobin 10.8, hematocrit 32.3, MCV 88, her platelet count 161. Her sodium 140, potassium 4.2, chloride 95, CO2 44, BUN 21, creatinine 0.51. Blood cultures so far are negative. PAST MEDICAL HISTORY Significant for: 1. A history of cancer of the colon status post resection and chemotherapy. 2. History of dysphagia. 3. Weight loss, now she weighs around 75 pounds. 4. Recent pneumonia. MEDICATIONS She is currently takin. Metoprolol 12.5 milligrams q.12h. 2. Xanax 0.5 milligrams as needed. 3. Solu-Medrol 40 milligrams q.8h. 4. Albuterol Atrovent nebulizer treatment. 5. Levaquin 750 milligrams daily. 6. Lovenox 40 milligrams daily. 7. Protonix 40 milligrams daily. 8. Insulin on sliding scale. ALLERGIES SHE IS ALLERGIC TO PENICILLIN. SOCIAL HISTORY She is a . No history of smoking. FAMILY HISTORY She has one daughter who lives in [place]. The patient now moved over here to live with her granddaughter who is her power of contract attorney. REVIEW OF SYSTEMS She feels very weak and tired. Has lost weight, about 20 pounds recently and now is only 75 pounds. No seizure or epilepsy. PHYSICAL EXAMINATION GENERAL: Frail, elderly female on BiPAP. VITAL SIGNS: Blood pressure 136/70, heart rate 97, respiratory rate 21, temperature 97.6. HEENT: Pupils are equal and reactive. NECK: Supple. Jugular venous pulse not raised. CHEST: She has faint rhonchi. CARDIOVASCULAR: S1-S2 normal. ABDOMEN: Soft and nondistended. Bowel sounds present. EXTREMITIES: No edema. IMPRESSION 1. Hypercapnic respiratory failure. 2. Bibasilar lung infiltrate. 3. Weight loss. 4. Cachexia. 5. History of cancer of the colon. PLAN I discussed with granddaughter at the bedside, the patient will be maintained on BiPAP, in case she gets worse she wants her to be intubated, though she has significant acidosis the patient is still tolerating it well and looks comfortable. Continue with antibiotics, IV Solu-Medrol, aerosol treatment. Also put her on Acetazolamide. Further treatment will depend on the course in the hospital. Thank you Dr. Yusuf for this consultation. MD PHOEBE Saucedo/KELLY /6:28 PM /8:24 AM OSIEL
[2017-02-10] MEDS: SODIUM CHLORIDE 0.9% FLUSH 10 ML FLUSH IV FLUSH SCH ×2 (08:42→21:45)
[2017-02-10] MEDS: PANTOPRAZOLE SODIUM 40 MG VIAL IV PUSH SCH (08:43)
[2017-02-10] MEDS: METOPROLOL TARTRATE 25 MG TAB PO SCH (08:43)
--- NOTE | 2017-02-10 09:53 | HHI.CCPN ---
Subjective Remarks/Hospital Course 02/04: 71-year-old female with a medical history significant for colon cancer in 2003 for which she underwent partial colon resection and chemotherapy, esophageal stricture with significant weight loss due to poor by mouth intake for which she was hospitalized in [place] in November 2016 for 2 weeks treated for pneumonia and subsequently evaluated for dysphagia and was found to have a sufficient stricture for which she was transferred to [place] in [place] and underwent esophageal dilatation and was subsequently discharged 2 weeks later on a pured diet. Patient moved to [place] with her granddaughter and a few beats VAC was admitted to [facility] for worsening shortness of breath and was diagnosed with a pneumonia, hyponatremia. She was treated with antibiotics and subsequently discharged home however the following day had to be readmitted at [facility] for unresolved shortness of breath where she was hospitalized for a week and subsequently discharged to half-way 3 days prior to this admission. Patient's by mouth intake has been poor since her discharge 3 days back according to her granddaughter as the pured diet at the half-way is to take. Patient was found to have altered mental status today and was found slumped to one side with poor respirations. EMS was called and patient was noted to have O2 sats in the 60s. She was transported to the emergency room where she was placed on BiPAP for respiratory distress with hypoxic respiratory failure. She was also noted to be hypertensive on arrival with systolic blood pressure in the 200s. Patient was also found to have a sodium of 118. I was contacted by ER physician and accepted patient for admission to the ICU. When I evaluated the patient in the ER she was on BiPAP with full facemask. History was obtained by discussion with patient's granddaughter was at the bedside. Patient was much more awake at this time and trying to communicate however in view of BiPAP requirement was difficult to communicate with. She denied any chest pain at the time. Patient has chronic diarrhea since her colon surgery in 2003. Per the granddaughter she was doing well till about 3 months ago when she started having significant weight loss and poor by mouth intake possibly related to esophageal stricture and the fact that she was taking care of her sick family member at home. She has been advised a PEG tube per the granddaughter because of her poor nutritional status and poor by mouth intake. She has had problems with hyponatremia off and on for a while. Patient's granddaughter is very concerned about her poor nutritional status. 02/05: Tolerating nasal cannula. Underwent PEG tube placement by IR today. Sodium 122. 02/06 No events overnight. s/p PEG tube placement yesterday. Sodium level 131 this morning 02/07 No events overnight. On 50% VM with good sats. 02/08 No events overnight. Afebrile . Off BIPAP. 02/09 Patient is on BIPAP 02/03 with 45% FIO2> Afebrile. 02/10 Patient was intubated early this morning for acute hypercapnic resp acidosis. Afebrile. Objective Vital Signs Date Time Temp Pulse Resp B/P (MAP) Pulse Ox O2 Delivery O2 Flow Rate FiO2 02/10/17 08:08 96 50 02/10/17 08:00 99.1 108 20 94/54 (67) 02/10/17 07:00 Mechanical Ventilator 02/09/17 08:46 4.00 Intake and Output 02/10/17 02/10/17 02/11/17 08:00 16:00 00:00 Intake Total 944 ml Output Total 200 ml Balance 744 ml Result Diagram: 02/09/17 0515 02/09/17 0515 Other Results Laboratory Tests Test 02/09/17 09:50 02/09/17 11:18 02/10/17 01:17 02/10/17 06:00 Blood Gas Puncture Site RT RADIAL RT RADIAL LT RADIAL RT RADIAL Blood Gas Patient Temperature 98.6 98.6 98.6 98.6 Blood Gas HCO3 46 mmol/L 46 mmol/L 44 mmol/L 38 mmol/L Blood Gas Base Excess 18.7 mmol/L 19.0 mmol/L 15.0 mmol/L 13.0 mmol/L Blood Gas Oxygen Saturation 98 % 97 % 97 % 85 % Arterial Blood pH 7.30 7.34 7.14 7.44 Arterial Blood Partial Pressure CO2 95 mmHg 87 mmHg 135 mmHg 56 mmHg Arterial Blood Partial Pressure O2 309 mmHg 117 mmHg 192 mmHg 51 mmHg Arterial Blood Oxygen Content 14.4 Vol % 13.8 Vol % 15.6 Vol % 14.5 Vol % Arterial Blood Carboxyhemoglobin 0.8 % 1.0 % 0.8 % 1.2 % Arterial Blood Methemoglobin 0.9 % 0.8 % 1.1 % 0.9 % Blood Gas Hemoglobin 9.9 G/DL 10.0 G/DL 11.1 G/DL 12.2 G/DL Oxygen Delivery Device NASAL CANNULA BIPAP BIPAP VENTILATOR Blood Gas Liter Flow 4 L/M Blood Gas Ventilator Setting IPAP 15 EPAP6 15/6 Blood Gas Inspired Oxygen 45 % 100 % 50 % Test 02/10/17 08:00 Imaging Last Impressions Chest X-Ray 02/10/17 0000 Signed Impressions: Service Date/Time: Friday, February 10, 2017 02:02 - CONCLUSION: 1. Intubation of right main bronchus. The tube needs to be withdrawn at least 4 cm. 2. Persistent bilateral lower lobe consolidation and new areas of opacity in the lateral left lung. Justin Lawson MD Gastrostomy Tube Placement 02/05/17 0000 Signed Impressions: Service Date/Time: January 16:47 - CONCLUSION: Uncomplicated gastrostomy tube placement as above. Jorje Josue MD Lower Extremity Ultrasound 02/04/17 0000 Signed Impressions: Service Date/Time: Saturday, February 04, 2017 21:13 - CONCLUSION: 1. No evidence of deep venous thrombosis within the lower extremities. 2. Popliteal cyst on the left measuring 2.2 x 1.5 x 0.9 cm. Julian Mcmahan MD Head CT 02/04/17 0000 Signed Impressions: Service Date/Time: Saturday, February 04, 2017 17:50 - CONCLUSION: 1. No acute intracranial abnormality. 2. Tiny fluid level within the right maxillary sinus. Julian Mcmahan MD CT Angiography 02/04/17 0000 Signed Impressions: Service Date/Time: Saturday, February 04, 2017 17:54 - CONCLUSION: 1. No evidence of pulmonary embolism. 2. Bibasilar alveolar consolidations as well as scattered perihilar patchy opacities suggestive of probable pneumonia. Clinical correlation is recommended. 3. 1.7 cm right thyroid nodule. Julian Mcmahan MD Abdomen X-Ray 02/04/17 0000 Signed Impressions: Service Date/Time: January 05:52 - CONCLUSION: Interval placement of nasogastric tube with the tip in the left mainstem bronchus. Caesar Ramos MD Objective Remarks GENERAL: Patient is 71 yo intubated SKIN: Warm and dry. HEAD: Normocephalic. EYES: No scleral icterus. No injection or drainage. NECK: Supple, trachea midline. No JVD or lymphadenopathy. CARDIOVASCULAR: Tachycardic without murmurs, gallops, or rubs. RESPIRATORY: Breath sounds equal bilaterally. No accessory muscle use. GASTROINTESTINAL: Abdomen soft, non-tender, nondistended. MUSCULOSKELETAL: No cyanosis, or edema. Neuro: Intubated A/P Assessment and Plan 71-year-old female with: Encephalopathy Acute respiratory failure- intubated Probable recurrent aspiration pneumonia (prehospital) Failure to thrive Hyponatremia Chronic diarrhea History of esophageal stricture status post recent esophageal dilation History of colon cancer Lower extremity edema Plan: Neuro: Monitor neuro status. Head CT negative for bleed. CV: Hold Lopressor 12.5mg BID-Monitor HR and BP keep MAP>65mmHg Pulm: Continue with vent support keep sat >92% Bronchodilators. On solumedrol 40mg Q8, ICU vent bundle. Repeat CXR, check ABG CT chest with no evidence of PE and shows bibasilar infiltrates concerning for recurrent aspiration pneumonia Pulm is following- Dr. Richardson, GI/liver:s/p PEG tube placement by IR 02/05 Continue tube feeds-Jevity 1.5 @ 45ml/hr Renal/: Monitor renal function, I/O's, electrolytes replacement as needed. Renal signed off, place on NS@75ml/hr ID: Continue abx( IV Levaquin, Vanco was added today) Monitor for signs of infections ( Fever, WBC) Follow up on sputum cx. ID eval. Endocrine: SSI for glycemic control if needed. Heme-onc: Monitor CBC and coags. Prophylaxis: Pepcid/SCDs. Subcutaneous Lovenox. Palliative care is following Level 3 Varun Yusuf MD Feb 10, 2017 09:53
[2017-02-10] MEDS ORDERED: SODIUM CHLORID 0.9% 500 ML INJ 500 ML IV ONE (10:15)
--- NOTE | 2017-02-10 10:51 | RADRPT ---
EXAM DATE/TIME: 02/10/2017 09:49 [facility] COMPARISON: CHEST SINGLE AP, February 10, 2017, 2:02. INDICATIONS : Respiratory failure. MEDICAL HISTORY : Hypertension. SURGICAL HISTORY : None. ENCOUNTER: Subsequent ACUITY: 1 week PAIN SCORE: Non-responsive. LOCATION: Bilateral chest FINDINGS: A single view of the chest demonstrates endotracheal tube endotracheal tube which was previously iden tified in the proximal right mainstem bronchus. This has been backed off to the level of the clavicul ar heads approximately 3.7 cm above the torri. Persistent bibasilar airspace disease, predominately medially on the right and more diffusely in the left lower lung. Possible associated left-sided effus ion. Heart size is normal. Osseous structures are intact. CONCLUSION: 1. Repositioning of the endotracheal tube, previously in the right mainstem bronchus and now appropri ately positioned approximate 3.7 cm above the torri. 2. Persistent bibasilar airspace disease, medially on the right and more diffusely in the lower lung field on the left. 3. Possible associated left-sided effusion. Nura Cook MD on February 10, 2017 at 10:45 Board Certified Radiologist. This report was verified electronically.
[2017-02-10] MEDS: ALPRAZolam 0.5 MG TAB PO PRN ×2 (12:53→19:09)
[2017-02-10] MEDS: SODIUM CHLOR 0.9% 1000 ML INJ 1,000 ML IV SCH (13:18)
[2017-02-10 13:20] LABS: HEMATOCRIT 23.8 % (35.0-46.0); MEAN CORPUSCULAR HEMOGLOBIN 30.3 PG (27.0-34.0); MEAN PLATELET VOLUME 7.8 FL (7.0-11.0); PLATELET COUNT 110 TH/MM3 (150-450); RED BLOOD COUNT 2.59 MIL/MM3 (4.00-5.30); RED CELL DISTRIBUTION WIDTH 15.8 % (11.6-17.2); WHITE BLOOD COUNT 7.9 TH/MM3 (4.0-11.0)
[2017-02-10 13:23] LABS: HEMOGLOBIN 7.8 GM/DL (11.6-15.3)
[2017-02-10 13:56] LABS: BICARBONATE 33.9 MEQ/L (21.0-32.0); CALCIUM 8.1 MG/DL (8.5-10.1); CREATININE 0.84 MG/DL (0.50-1.00)
[2017-02-10 13:57] LABS: BANDS 53 % (0-6); LYMPHOCYTES 1 % (9-44); MONOCYTES 3 % (0-8); NEUTROPHIL # MANUAL DIFF 7.6 TH/MM3 (1.8-7.7); POLYS (SEG NEUTROPHILS) 43 % (16-70)
--- NOTE | 2017-02-10 14:26 | HHI.HCPN ---
Reason for visit a. To assist with evaluation and management of symptoms including:shortness of breath, decreased oral intake, debility b. To assist medical decision maker(s) with: better understanding of current medical conditions; weighing benefits/burdens of medical treatment options; making medical treatment decisions. Subjective/Interval History Patient seen and examined in her room. Patient is now intubated on a mechanical ventilator. No signs of discomfort or distress noted. Patient was intubated early this morning for acute hypercapnic respiratory acidosis, PCO2 135. Patient `s granddaughter at beside during visit. Patient currently not following commands, received xanax earlier on. Patient`s was started on Fentanyl and Propofol earlier on for sedation and pain but both had to be discontinued due to hypotension. 1 L NS bolus administered and SBP 90s. Patient is afebrile. Vent settings PRVC/AC 16/450/5/ 1.0s/55% . O2 saturation high 90s on FIO2 50%. ABG results pH 7.39, PCO2 58, PO2 89, HCO3 34 , hemoglobin 7.6, O2 saturation 95%. Chest x-ray today revealed persistent bibasilar airspace increase, medially on the right and more diffusely in the lower lung garrido to the left, possible associated left-sided effusion. Laboratory workup revealing WBC 7.9, hemoglobin 7.8, hematocrit 23.8, platelet count 110. Patient`s granddaughter who is at bedside verbalized that she has been talking to patient prior to intubation regarding patient`s wishes and patient stated that she wants aggressive treatment even is it means she has to be intubated. Granddaughter understands that patient may not do well or return to her baseline but states that even if it means getting stable enough and transferring to a residential, patient and family find that as an acceptable quality of life. Case discussed with Dr He and bedside RN. Case discussed with bedside RN and Dr. He. Family/friend interactions Granddaughter-[facility] at bedside Advance Directives Living Will: Never completed Health Care Surrogate: Copy in medical record Advance Directive Specifics Date completed: December 19, 2016 . Health Care Surrogate(s): Granddaughter-[facility]- Connie Cotton- [phone] Alternate [facility]- Freddy Cotton [phone] . Objective Vital Signs Date Time Temp Pulse Resp B/P (MAP) Pulse Ox O2 Delivery O2 Flow Rate FiO2 02/10/17 12:00 50 02/10/17 11:17 100 50 02/10/17 10:00 102 02/10/17 08:08 96 50 02/10/17 08:00 99.1 108 20 94/54 (67) 96 02/10/17 08:00 60 02/10/17 08:00 108 02/10/17 07:00 96 Mechanical Ventilator 60 02/10/17 06:00 109 02/10/17 04:30 103 18 87/58 (68) 97 02/10/17 04:00 111 02/10/17 04:00 98.2 111 17 59/41 (47) 95 02/10/17 02:00 106 02/10/17 01:55 98 60 02/10/17 00:22 92 50 02/10/17 00:00 93 02/10/17 00:00 97.3 93 65 145/71 (95) 79 02/09/17 22:00 97 02/09/17 20:04 95 35 02/09/17 20:00 100 Bi-Pap 35 02/09/17 20:00 117 02/09/17 20:00 97.7 117 31 158/79 (105) 98 02/09/17 18:00 107 02/09/17 16:00 98.3 109 26 145/69 (94) 96 02/09/17 16:00 109 02/09/17 15:39 99 35 02/09/17 14:00 110 Intake & Output 02/10/17 02/10/17 07:00 19:00 Intake Total 283 ml 911 ml Output Total 200 ml Balance 83 ml 911 ml Intake IV Total 911 ml Tube Feeding 283 ml Output Urine Total 200 ml # Bowel Movements 4 Physical Exam CONSTITUTIONAL/GENERAL: This is a cachectic, ill-looking elderly patient, appears older than stated age, Intubated. TUBES/LINES/DRAINS: ETT, Cabrera catheter, PIV, PEG tube SKIN: No jaundice. Ecchymoses on upper extremities-B2 skin tear to left elbow. Skin temperature appropriate. Not diaphoretic. HEAD: Atraumatic. Normocephalic. EYES: Pupils equal and round and reactive. Extraocular motions intact. No scleral icterus. No injection or drainage. Fundi not examined. ENT: Hearing grossly normal. Nose without bleeding or purulent drainage. NECK: Trachea midline. Supple, nontender. CARDIOVASCULAR: Regular rate and rhythm without murmurs, gallops, or rubs . No JVD. Peripheral pulses symmetric. Weeping, pitting edema to bilateral lower extremities RESPIRATORY/CHEST: Symmetric, unlabored respirations. Rhonchi to auscultation. Diminished Breath sounds equal bilaterally. Intubated, FIO2=55% GASTROINTESTINAL: Abdomen soft, non-tender, nondistended. Bowel sounds present. PEG tube- Jevity 1.5 infusing GENITOURINARY: Without palpable bladder distension. Cabrera catheter in place. MUSCULOSKELETAL: Extremities without clubbing. No joint tenderness or effusion noted. No calf tenderness. No mottling. Improved bilateral lower extremities edema. NEUROLOGICAL: Intubated on mechanical ventilation. Withdraws with all 4 extremities. PSYCHIATRIC: Unable to assess,now intubated on mechanical ventilation. . . Diagnostic Tests Laboratory Laboratory Tests Test 02/07/17 14:30 02/08/17 04:13 02/08/17 10:38 02/08/17 14:09 Potassium Level 3.9 MEQ/L (3.5-5.1) 4.2 MEQ/L (3.5-5.1) White Blood Count 6.7 TH/MM3 (4.0-11.0) Red Blood Count 3.38 MIL/MM3 (4.00-5.30) Hemoglobin 10.4 GM/DL (11.6-15.3) Hematocrit 29.6 % (35.0-46.0) Mean Corpuscular Volume 87.6 FL (80.0-100.0) Mean Corpuscular Hemoglobin 30.8 PG (27.0-34.0) Mean Corpuscular Hemoglobin Concent 35.2 % (32.0-36.0) Red Cell Distribution Width 15.9 % (11.6-17.2) Platelet Count 159 TH/MM3 (150-450) Mean Platelet Volume 7.1 FL (7.0-11.0) Neutrophils (%) (Auto) 85.5 % (16.0-70.0) Lymphocytes (%) (Auto) 3.4 % (9.0-44.0) Monocytes (%) (Auto) 10.8 % (0.0-8.0) Eosinophils (%) (Auto) 0.1 % (0.0-4.0) Basophils (%) (Auto) 0.2 % (0.0-2.0) Neutrophils # (Auto) 5.7 TH/MM3 (1.8-7.7) Lymphocytes # (Auto) 0.2 TH/MM3 (1.0-4.8) Monocytes # (Auto) 0.7 TH/MM3 (0-0.9) Eosinophils # (Auto) 0.0 TH/MM3 (0-0.4) Basophils # (Auto) 0.0 TH/MM3 (0-0.2) CBC Comment DIFF FINAL Differential Comment Blood Urea Nitrogen 11 MG/DL (7-18) Creatinine 0.53 MG/DL (0.50-1.00) Random Glucose 172 MG/DL (74-106) Total Protein 5.7 GM/DL (6.4-8.2) Albumin 2.3 GM/DL (3.4-5.0) Calcium Level 7.8 MG/DL (8.5-10.1) Phosphorus Level 2.3 MG/DL (2.5-4.9) Magnesium Level 1.7 MG/DL (1.5-2.5) Alkaline Phosphatase 84 U/L (45-117) Aspartate Amino Transf (AST/SGOT) 8 U/L (15-37) Alanine Aminotransferase (ALT/SGPT) 11 U/L (10-53) Total Bilirubin 0.3 MG/DL (0.2-1.0) Sodium Level 138 MEQ/L (136-145) Chloride Level 96 MEQ/L (98-107) Carbon Dioxide Level 36.7 MEQ/L (21.0-32.0) Anion Gap 5 MEQ/L (5-15) Estimat Glomerular Filtration Rate 114 ML/MIN (>89) Blood Gas Puncture Site RT RADIAL RT BRACHIAL Blood Gas Patient Temperature 98.6 98.6 Blood Gas HCO3 40 mmol/L (22-26) 41 mmol/L (22-26) Blood Gas Base Excess 12.9 mmol/L (-2-2) 15.5 mmol/L (-2-2) Blood Gas Oxygen Saturation 97 % (90-100) 92 % (90-100) Arterial Blood pH 7.29 (7.380-7.420) 7.45 (7.380-7.420) Arterial Blood Partial Pressure CO2 84 mmHg (38-42) 59 mmHg (38-42) Arterial Blood Partial Pressure O2 132 mmHg (61-120) 66 mmHg (61-120) Arterial Blood Oxygen Content 13.6 Vol % (12.0-20.0) 13.0 Vol % (12.0-20.0) Arterial Blood Carboxyhemoglobin 1.1 % (0-4) 1.4 % (0-4) Arterial Blood Methemoglobin 0.9 % (0-2) 0.9 % (0-2) Blood Gas Hemoglobin 9.8 G/DL (12.0-16.0) 9.9 G/DL (12.0-16.0) Oxygen Delivery Device NASAL CANNULA BIPAP Blood Gas Liter Flow 2 L/M Blood Gas Inspired Oxygen 28 % 35 % Blood Gas Ventilator Setting IPAP+12/EPAP+6 Test 02/08/17 19:46 02/09/17 05:15 02/09/17 09:50 02/09/17 11:18 Phosphorus Level 3.6 MG/DL (2.5-4.9) White Blood Count 4.8 TH/MM3 (4.0-11.0) Red Blood Count 3.67 MIL/MM3 (4.00-5.30) Hemoglobin 10.8 GM/DL (11.6-15.3) Hematocrit 32.3 % (35.0-46.0) Mean Corpuscular Volume 88.2 FL (80.0-100.0) Mean Corpuscular Hemoglobin 29.6 PG (27.0-34.0) Mean Corpuscular Hemoglobin Concent 33.5 % (32.0-36.0) Red Cell Distribution Width 15.8 % (11.6-17.2) Platelet Count 161 TH/MM3 (150-450) Mean Platelet Volume 7.1 FL (7.0-11.0) Neutrophils (%) (Auto) 90.1 % (16.0-70.0) Lymphocytes (%) (Auto) 4.2 % (9.0-44.0) Monocytes (%) (Auto) 5.6 % (0.0-8.0) Eosinophils (%) (Auto) 0.0 % (0.0-4.0) Basophils (%) (Auto) 0.1 % (0.0-2.0) Neutrophils # (Auto) 4.4 TH/MM3 (1.8-7.7) Lymphocytes # (Auto) 0.2 TH/MM3 (1.0-4.8) Monocytes # (Auto) 0.3 TH/MM3 (0-0.9) Eosinophils # (Auto) 0.0 TH/MM3 (0-0.4) Basophils # (Auto) 0.0 TH/MM3 (0-0.2) CBC Comment DIFF FINAL Differential Comment Blood Urea Nitrogen 21 MG/DL (7-18) Creatinine 0.51 MG/DL (0.50-1.00) Random Glucose 206 MG/DL (74-106) Calcium Level 8.3 MG/DL (8.5-10.1) Sodium Level 142 MEQ/L (136-145) Potassium Level 4.2 MEQ/L (3.5-5.1) Chloride Level 95 MEQ/L (98-107) Carbon Dioxide Level 44.4 MEQ/L (21.0-32.0) Anion Gap 3 MEQ/L (5-15) Estimat Glomerular Filtration Rate 119 ML/MIN (>89) Blood Gas Puncture Site RT RADIAL RT RADIAL Blood Gas Patient Temperature 98.6 98.6 Blood Gas HCO3 46 mmol/L (22-26) 46 mmol/L (22-26) Blood Gas Base Excess 18.7 mmol/L (-2-2) 19.0 mmol/L (-2-2) Blood Gas Oxygen Saturation 98 % (90-100) 97 % (90-100) Arterial Blood pH 7.30 (7.380-7.420) 7.34 (7.380-7.420) Arterial Blood Partial Pressure CO2 95 mmHg (38-42) 87 mmHg (38-42) Arterial Blood Partial Pressure O2 309 mmHg (61-120) 117 mmHg (61-120) Arterial Blood Oxygen Content 14.4 Vol % (12.0-20.0) 13.8 Vol % (12.0-20.0) Arterial Blood Carboxyhemoglobin 0.8 % (0-4) 1.0 % (0-4) Arterial Blood Methemoglobin 0.9 % (0-2) 0.8 % (0-2) Blood Gas Hemoglobin 9.9 G/DL (12.0-16.0) 10.0 G/DL (12.0-16.0) Oxygen Delivery Device NASAL CANNULA BIPAP Blood Gas Liter Flow 4 L/M Blood Gas Ventilator Setting IPAP 15 EPAP6 Blood Gas Inspired Oxygen 45 % Test 02/10/17 01:17 02/10/17 06:00 02/10/17 10:00 02/10/17 12:14 Blood Gas Puncture Site LT RADIAL RT RADIAL RT RADIAL Blood Gas Patient Temperature 98.6 98.6 98.6 Blood Gas HCO3 44 mmol/L (22-26) 38 mmol/L (22-26) 34 mmol/L (22-26) Blood Gas Base Excess 15.0 mmol/L (-2-2) 13.0 mmol/L (-2-2) 9.2 mmol/L (-2-2) Blood Gas Oxygen Saturation 97 % (90-100) 85 % (90-100) 95 % (90-100) Arterial Blood pH 7.14 (7.380-7.420) 7.44 (7.380-7.420) 7.39 (7.380-7.420) Arterial Blood Partial Pressure CO2 135 mmHg (38-42) 56 mmHg (38-42) 58 mmHg (38-42) Arterial Blood Partial Pressure O2 192 mmHg (61-120) 51 mmHg (61-120) 89 mmHg (61-120) Arterial Blood Oxygen Content 15.6 Vol % (12.0-20.0) 14.5 Vol % (12.0-20.0) 10.3 Vol % (12.0-20.0) Arterial Blood Carboxyhemoglobin 0.8 % (0-4) 1.2 % (0-4) 1.1 % (0-4) Arterial Blood Methemoglobin 1.1 % (0-2) 0.9 % (0-2) 1.1 % (0-2) Blood Gas Hemoglobin 11.1 G/DL (12.0-16.0) 12.2 G/DL (12.0-16.0) 7.6 G/DL (12.0-16.0) Oxygen Delivery Device BIPAP VENTILATOR PRVCAC/VT450/R16/P5 Blood Gas Ventilator Setting 15/6 Blood Gas Inspired Oxygen 100 % 50 % 50 % White Blood Count 7.9 TH/MM3 (4.0-11.0) Red Blood Count 2.59 MIL/MM3 (4.00-5.30) Hemoglobin 7.8 GM/DL (11.6-15.3) Hematocrit 23.8 % (35.0-46.0) Mean Corpuscular Volume 92.0 FL (80.0-100.0) Mean Corpuscular Hemoglobin 30.3 PG (27.0-34.0) Mean Corpuscular Hemoglobin Concent 33.0 % (32.0-36.0) Red Cell Distribution Width 15.8 % (11.6-17.2) Platelet Count 110 TH/MM3 (150-450) Mean Platelet Volume 7.8 FL (7.0-11.0) CBC Comment AUTO DIFF Result Diagram: 02/10/17 1214 02/09/17 0515 Microbiology Microbiology Date/Time Source Procedure Growth Status 02/10/17 06:06 Sputum Endotracheal Gram Stain Pending Received 02/10/17 06:06 Sputum Endotracheal Sputum Culture Pending Received Imaging Last 48 hours Impressions Chest X-Ray 02/10/17 0000 Signed Impressions: Service Date/Time: Friday, February 10, 2017 09:49 - CONCLUSION: 1. Repositioning of the endotracheal tube, previously in the right mainstem bronchus and now appropriately positioned approximate 3.7 cm above the torri. 2. Persistent bibasilar airspace disease, medially on the right and more diffusely in the lower lung field on the left. 3. Possible associated left- sided effusion. Nura Cook MD Chest X-Ray 02/10/17 0000 Signed Impressions: Service Date/Time: Friday, February 10, 2017 02:02 - CONCLUSION: 1. Intubation of right main bronchus. The tube needs to be withdrawn at least 4 cm. 2. Persistent bilateral lower lobe consolidation and new areas of opacity in the lateral left lung. Justin Lawson MD Chest X-Ray 02/09/17 0000 Signed Impressions: Service Date/Time: Thursday, February 09, 2017 08:41 - CONCLUSION: Bibasilar consolidating airspace disease; unchanged. Michoacano Myers MD Procedures 02/05/17 PEG tube placement 02/10/17- Intubated . Assessment and Plan Disease Oriented Problem List: (1) Sepsis (2) Hyponatremia (3) Pneumonia (4) Hypoxia Symptom Scale: (1) Shortness of breath Comment: Multifactorial. Patient has had multiple hospitalizations for shortness of breath/pneumonia. Mild respiratory distress. On BiPAP. . (2) Decreased oral intake Comment: History of dysphagia status post dilatation. Patient was currently on pured diet in residential. His lost approximately 25 pounds in 2 months. Now has a PEG Tube-receiving TF. . (3) Debility Comment: Progressive. Patient has had prolonged hospitalization in 4 different facilities since November 2016. Since November she has been hospitalized approximately 5 times. Patient was discharged recently into a [facility] facility. Patient has also lost weight significantly. Has not been able to participate in physical therapy due to her illness. Patient remains at high risk for deterioration if she continues to have shortness of breath, which will limit her participation in physical therapy. PT was consulted- recommending PT at rehab. . Pertinent Non-Medical Issues Psychosocial:Patient was born and raised in [place]. Patient still lives in [place] but came to [place] with her granddaughter to visit in late November, after being hospitalized in [place] and [place] for approximately 4 weeks. Patient was twice and once and her last a few years ago . She has 1 adult daughter, one grandchild and 2 great grandchildren. Patients is level of education is high school. 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 Patient has been living alone independently in [place] and helps take care of her elderly mother was 95 years old. Spiritual: Legal:Patient has a designated [facility] Ethical issues impacting care: None identified at this time. Important Contacts Granddaughter-[facility]- Connie Cotton- [phone] Alternate [facility]- Freddy Jasiel Cotton [phone] Daughter- Flor Bennett [phone] . Prognosis Mrs Knapp is a 71 years old female with a past medical history of colon cancer, esophageal strictures, pneumonia and anxiety. Patient has had multiple hospitalizations for persistent pneumonia, hyponatremia and dysphagia. She was recently discharged from [facility] to a [facility] facility. Patient presented via EMS [place] [facility] [place]17 after she was found slumped over, with cyanosis of limbs and in respiratory distress at [facility]. Patient`s O2 saturation were in the 80s. Given ongoing comorbidities and recent multiple hospitalizations, patient remains at high risk for complications, deterioration in decline. . Code Status: Full Code Plan PLAN: Legal decision maker: Patient does not appear to have clear understanding and insight of her clinical condition. Recommending joint decision making with her granddaughter Connie Cotton. Her alternate HCS- Freddy Cotton. Goals: 02/10/17 Remain aggressive. Patient`s granddaughter who is at bedside verbalized that she has been talking to patient prior to intubation regarding patient`s wishes and patient stated that she wants aggressive treatment even is it means she has to be intubated. Granddaughter understands that patient may not do well or return to her baseline but states that even if it means getting stable enough and transferring to a residential, patient and family find that as an acceptable quality of life. CODE STATUS: Full code SYMPTOMS: * Shortness of breath:Multifactorial. Patient has had multiple hospitalizations for shortness of breath/pneumonia. Chest x-ray revealed a space infiltrate in right base, with possible small effusion. Mild respiratory distress noted. Received antibiotics in the ER. Patient continues gets hypercapnic whenever she gets weaned off BiPAP. She is currently on BiPAP 15/5/ 50%. * Decreased oral intake:History of dysphagia status post dilatation. Patient was currently on pured diet in residential. She lost approximately 25 pounds in 2 months. Recommending swallowing evaluation by speech therapy. Patient failed swallow evaluation today. GI consulted. NG tube attempted to be placed at bedside but unsuccessful. TF infusing via PEG. Speech therapy consulted. . * Debility:Progressive. Patient has had prolonged hospitalization in 4 different facilities since November 2016. Since November she has been hospitalized approximately 5 times. Patient was discharged recently into a [facility] facility. Patient has also lost weight significantly. Has not been able to participate in physical therapy due to her illness. Patient remains at high risk for deterioration if she continues to have shortness of breath, which will limit her participation in physical therapy. Patient may benefit from physical therapy. Palliative care will continue to follow the patient during hospital course as condition evolves, to assist patient/decision-maker with understanding of their medical conditions, weighing benefits/burdens of treatment options, for clarification of goals of treatment. Additionally will assist with any symptoms of palliative concern. . Julianne More Feb 10, 2017 14:26
[2017-02-10 14:34] LABS: AUTOMATED NEUTROPHIL # 7.2 TH/MM3 (1.8-7.7); HEMATOCRIT 23.9 % (35.0-46.0); HEMOGLOBIN 7.8 GM/DL (11.6-15.3); LYMPH % 3.5 % (9.0-44.0); LYMPHOCYTE # 0.3 TH/MM3 (1.0-4.8); MEAN CELL VOLUME 92.2 FL (80.0-100.0); MEAN CORPUSCULAR HEMOGLOBIN 30.2 PG (27.0-34.0); MEAN CORPUSCULAR HGB CONC 32.7 % (32.0-36.0); MEAN PLATELET VOLUME 7.5 FL (7.0-11.0); MONO % 5.5 % (0.0-8.0); MONOCYTE # 0.4 TH/MM3 (0-0.9); PLATELET COUNT 105 TH/MM3 (150-450); RED BLOOD COUNT 2.59 MIL/MM3 (4.00-5.30); RED CELL DISTRIBUTION WIDTH 16.3 % (11.6-17.2); WHITE BLOOD COUNT 7.9 TH/MM3 (4.0-11.0)
--- NOTE | 2017-02-10 15:10 | PD.ID.CON ---
History of Present Illness Service ID Consult Requested By Dr Laurent Reason for Consult PNA Primary Care Physician Unknown Diagnoses: Past Family Social History Allergies: Coded Allergies: Penicillins (Verified Allergy, Unknown, 02/04/17) Active Ordered Medications Medications where reviewed in EMR Antibiotics Include: levaquin vancomycin Physical Exam Vital Signs Vital Signs Date Time Temp Pulse Resp B/P (MAP) Pulse Ox O2 Delivery O2 Flow Rate FiO2 02/10/17 14:55 97 40 02/10/17 12:00 50 02/10/17 11:17 100 50 02/10/17 10:00 102 02/10/17 08:08 96 50 02/10/17 08:00 99.1 108 20 94/54 (67) 96 02/10/17 08:00 60 02/10/17 08:00 108 02/10/17 07:00 96 Mechanical Ventilator 60 02/10/17 06:00 109 02/10/17 04:30 103 18 87/58 (68) 97 02/10/17 04:00 111 02/10/17 04:00 98.2 111 17 59/41 (47) 95 02/10/17 02:00 106 02/10/17 01:55 98 60 02/10/17 00:22 92 50 02/10/17 00:00 93 02/10/17 00:00 97.3 93 65 145/71 (95) 79 02/09/17 22:00 97 02/09/17 20:04 95 35 02/09/17 20:00 100 Bi-Pap 35 02/09/17 20:00 117 02/09/17 20:00 97.7 117 31 158/79 (105) 98 02/09/17 18:00 107 02/09/17 16:00 98.3 109 26 145/69 (94) 96 02/09/17 16:00 109 02/09/17 15:39 99 35 Physical Exam Laboratory Laboratory Tests Test 02/10/17 01:17 02/10/17 06:00 02/10/17 10:00 02/10/17 12:14 Blood Gas Puncture Site LT RADIAL RT RADIAL RT RADIAL Blood Gas Patient Temperature 98.6 98.6 98.6 Blood Gas HCO3 44 38 34 Blood Gas Base Excess 15.0 13.0 9.2 Blood Gas Oxygen Saturation 97 85 95 Arterial Blood pH 7.14 7.44 7.39 Arterial Blood Partial Pressure CO2 135 56 58 Arterial Blood Partial Pressure O2 192 51 89 Arterial Blood Oxygen Content 15.6 14.5 10.3 Arterial Blood Carboxyhemoglobin 0.8 1.2 1.1 Arterial Blood Methemoglobin 1.1 0.9 1.1 Blood Gas Hemoglobin 11.1 12.2 7.6 Oxygen Delivery Device BIPAP VENTILATOR PRVCAC/VT450/R16/P5 Blood Gas Ventilator Setting 15/6 Blood Gas Inspired Oxygen 100 50 50 White Blood Count 7.9 Red Blood Count 2.59 Hemoglobin 7.8 Hematocrit 23.8 Mean Corpuscular Volume 92.0 Mean Corpuscular Hemoglobin 30.3 Mean Corpuscular Hemoglobin Concent 33.0 Red Cell Distribution Width 15.8 Platelet Count 110 Mean Platelet Volume 7.8 CBC Comment AUTO DIFF Differential Total Cells Counted 100 Neutrophils % (Manual) 43 Band Neutrophils % 53 Lymphocytes % 1 Monocytes % 3 Neutrophils # (Manual) 7.6 Differential Comment FINAL DIFF MANUAL Platelet Estimate LOW Platelet Morphology Comment NORMAL Red Cell Morphology Comment NORMAL Blood Urea Nitrogen 43 Creatinine 0.84 Random Glucose 280 Calcium Level 8.1 Sodium Level 144 Potassium Level 3.5 Chloride Level 103 Carbon Dioxide Level 33.9 Anion Gap 7 Estimat Glomerular Filtration Rate 67 Test 02/10/17 14:03 White Blood Count 7.9 Red Blood Count 2.59 Hemoglobin 7.8 Hematocrit 23.9 Mean Corpuscular Volume 92.2 Mean Corpuscular Hemoglobin 30.2 Mean Corpuscular Hemoglobin Concent 32.7 Red Cell Distribution Width 16.3 Platelet Count 105 Mean Platelet Volume 7.5 Neutrophils (%) (Auto) 91.0 Lymphocytes (%) (Auto) 3.5 Monocytes (%) (Auto) 5.5 Eosinophils (%) (Auto) 0.0 Basophils (%) (Auto) 0.0 Neutrophils # (Auto) 7.2 Lymphocytes # (Auto) 0.3 Monocytes # (Auto) 0.4 Eosinophils # (Auto) 0.0 Basophils # (Auto) 0.0 CBC Comment DIFF FINAL Differential Comment Date/Time Source Procedure Growth Status 02/04/17 11:35 Blood Peripheral Aerobic Blood Culture - Final NO GROWTH IN 5 DAYS Complete 02/04/17 11:35 Blood Peripheral Anaerobic Blood Culture - Final NO GROWTH IN 5 DAYS Complete 02/10/17 06:06 Sputum Endotracheal Gram Stain Pending Received 02/10/17 06:06 Sputum Endotracheal Sputum Culture Pending Received Result Diagram: 02/10/17 1403 02/10/17 1214 Imaging Last Impressions Chest X-Ray 02/10/17 0000 Signed Impressions: Service Date/Time: Friday, February 10, 2017 09:49 - CONCLUSION: 1. Repositioning of the endotracheal tube, previously in the right mainstem bronchus and now appropriately positioned approximate 3.7 cm above the torri. 2. Persistent bibasilar airspace disease, medially on the right and more diffusely in the lower lung field on the left. 3. Possible associated left- sided effusion. Nura Cook MD Gastrostomy Tube Placement 02/05/17 0000 Signed Impressions: Service Date/Time: January 16:47 - CONCLUSION: Uncomplicated gastrostomy tube placement as above. Jorje Josue MD Lower Extremity Ultrasound 02/04/17 0000 Signed Impressions: Service Date/Time: Saturday, February 04, 2017 21:13 - CONCLUSION: 1. No evidence of deep venous thrombosis within the lower extremities. 2. Popliteal cyst on the left measuring 2.2 x 1.5 x 0.9 cm. Julian Mcmahan MD Head CT 02/04/17 0000 Signed Impressions: Service Date/Time: Saturday, February 04, 2017 17:50 - CONCLUSION: 1. No acute intracranial abnormality. 2. Tiny fluid level within the right maxillary sinus. Julian Mcmahan MD CT Angiography 02/04/17 0000 Signed Impressions: Service Date/Time: Saturday, February 04, 2017 17:54 - CONCLUSION: 1. No evidence of pulmonary embolism. 2. Bibasilar alveolar consolidations as well as scattered perihilar patchy opacities suggestive of probable pneumonia. Clinical correlation is recommended. 3. 1.7 cm right thyroid nodule. Julian Mcmahan MD Abdomen X-Ray 02/04/17 0000 Signed Impressions: Service Date/Time: January 05:52 - CONCLUSION: Interval placement of nasogastric tube with the tip in the left mainstem bronchus. MD John Stiles Alexandra A. MD Feb 10, 2017 15:10
[2017-02-10] MEDS ORDERED: GLUCAGON 1 MG/ML VIAL OTHER PRN (16:15)
[2017-02-10] MEDS ORDERED: DEXTROSE 50% IN WATER 50 ML VIAL(D50) IV PUSH PRN (16:15)
[2017-02-10] MEDS: INSULIN NovoLIN REGULAR SUPPLEMENTAL SCALE SQ SCH ×2 (16:15→20:43)
--- NOTE | 2017-02-10 17:29 | PD.ID.CON ---
History of Present Illness Service ID Consult Requested By Dr Laurent Reason for Consult PNA Primary Care Physician Unknown Diagnoses: History of Present Illness 71 yo female with h/o remote colon ca admitted one week ago with resp issues CTA showed no embolism, but had pneumonia She was on BIPAP for a week and got intubated today after eventually failing it Her sputum was purulent and has gram positive on Gstain Past Family Social History Allergies: Coded Allergies: Penicillins (Verified Allergy, Unknown, 02/04/17) Past Medical History Pneumonia Hyponatremia chronic Esophageal stricture with previous notation. Failure to thrive with progressive weight loss. Recurrent pneumonia. Past Surgical History Surgery for carcinoma colon. Details not available presently. Active Ordered Medications Medications where reviewed in EMR Antibiotics Include: levaquine vancomycin Family History Patient to provide presently. Respiratory distress. Social History Denying tobacco use or alcohol abuse. Physical Exam Vital Signs Vital Signs Date Time Temp Pulse Resp B/P (MAP) Pulse Ox O2 Delivery O2 Flow Rate FiO2 02/10/17 16:00 50 02/10/17 16:00 99.8 104 16 106/57 (73) 100 02/10/17 16:00 104 02/10/17 14:55 97 40 02/10/17 14:00 102 02/10/17 12:00 50 02/10/17 12:00 94 02/10/17 12:00 98.9 94 16 100/57 (71) 100 02/10/17 11:17 100 50 02/10/17 10:00 102 02/10/17 08:08 96 50 02/10/17 08:00 99.1 108 20 94/54 (67) 96 02/10/17 08:00 60 02/10/17 08:00 108 02/10/17 07:00 96 Mechanical Ventilator 60 02/10/17 06:00 109 02/10/17 04:30 103 18 87/58 (68) 97 02/10/17 04:00 111 02/10/17 04:00 98.2 111 17 59/41 (47) 95 02/10/17 02:00 106 02/10/17 01:55 98 60 02/10/17 00:22 92 50 02/10/17 00:00 93 02/10/17 00:00 97.3 93 65 145/71 (95) 79 02/09/17 22:00 97 02/09/17 20:04 95 35 02/09/17 20:00 100 Bi-Pap 35 02/09/17 20:00 117 02/09/17 20:00 97.7 117 31 158/79 (105) 98 02/09/17 18:00 107 Physical Exam CONSTITUTIONAL/GENERAL: This is a poorly nourished patient, in no apparent distress. TUBES/LINES/DRAINS: SKIN: No jaundice, rashes, or lesions. Skin temperature appropriate. Not diaphoretic. HEAD: Atraumatic. Normocephalic. EYES: Pupils equal and round and reactive. Extraocular motions intact. No scleral icterus. No injection or drainage. Fundi not examined. ENT: Hearing grossly normal. Nose without bleeding or purulent drainage. Throat without visible erythema, exudates, masses, or lesions. NECK: Trachea midline. Supple, nontender. No palpable thyroid enlargement or nodularity. CARDIOVASCULAR: Regular rate and rhythm without murmurs, gallops, or rubs. No JVD. Peripheral pulses symmetric. RESPIRATORY/CHEST: Symmetric, unlabored respirations. Clear to auscultation. Breath sounds equal bilaterally. No wheezes, rales, or rhonchi. GASTROINTESTINAL: Abdomen soft, tender top palpation LLQ , nondistended. No hepato-splenomegaly, or palpable masses. No guarding. Bowel sounds present. Rectal tube in place with liquid stool GENITOURINARY: Without palpable bladder distension. Cabrera catheter in place this clear yellow urine MUSCULOSKELETAL: Extremities without clubbing, cyanosis, or edema. No joint tenderness or effusion noted. No calf tenderness. No mottling or clubbing. LYMPHATICS: No palpable cervical or supraclavicular adenopathy.Lightly sedated , easily arousable . Moves all extremities. PSYCHIATRIC: No obvious anxiety/depression. no apparent hallucinations or other psychotic thought process. Laboratory Laboratory Tests Test 02/10/17 01:17 02/10/17 06:00 02/10/17 10:00 02/10/17 12:14 Blood Gas Puncture Site LT RADIAL RT RADIAL RT RADIAL Blood Gas Patient Temperature 98.6 98.6 98.6 Blood Gas HCO3 44 38 34 Blood Gas Base Excess 15.0 13.0 9.2 Blood Gas Oxygen Saturation 97 85 95 Arterial Blood pH 7.14 7.44 7.39 Arterial Blood Partial Pressure CO2 135 56 58 Arterial Blood Partial Pressure O2 192 51 89 Arterial Blood Oxygen Content 15.6 14.5 10.3 Arterial Blood Carboxyhemoglobin 0.8 1.2 1.1 Arterial Blood Methemoglobin 1.1 0.9 1.1 Blood Gas Hemoglobin 11.1 12.2 7.6 Oxygen Delivery Device BIPAP VENTILATOR PRVCAC/VT450/R16/P5 Blood Gas Ventilator Setting 15/6 Blood Gas Inspired Oxygen 100 50 50 White Blood Count 7.9 Red Blood Count 2.59 Hemoglobin 7.8 Hematocrit 23.8 Mean Corpuscular Volume 92.0 Mean Corpuscular Hemoglobin 30.3 Mean Corpuscular Hemoglobin Concent 33.0 Red Cell Distribution Width 15.8 Platelet Count 110 Mean Platelet Volume 7.8 CBC Comment AUTO DIFF Differential Total Cells Counted 100 Neutrophils % (Manual) 43 Band Neutrophils % 53 Lymphocytes % 1 Monocytes % 3 Neutrophils # (Manual) 7.6 Differential Comment FINAL DIFF MANUAL Platelet Estimate LOW Platelet Morphology Comment NORMAL Red Cell Morphology Comment NORMAL Blood Urea Nitrogen 43 Creatinine 0.84 Random Glucose 280 Calcium Level 8.1 Sodium Level 144 Potassium Level 3.5 Chloride Level 103 Carbon Dioxide Level 33.9 Anion Gap 7 Estimat Glomerular Filtration Rate 67 Test 02/10/17 14:03 White Blood Count 7.9 Red Blood Count 2.59 Hemoglobin 7.8 Hematocrit 23.9 Mean Corpuscular Volume 92.2 Mean Corpuscular Hemoglobin 30.2 Mean Corpuscular Hemoglobin Concent 32.7 Red Cell Distribution Width 16.3 Platelet Count 105 Mean Platelet Volume 7.5 Neutrophils (%) (Auto) 91.0 Lymphocytes (%) (Auto) 3.5 Monocytes (%) (Auto) 5.5 Eosinophils (%) (Auto) 0.0 Basophils (%) (Auto) 0.0 Neutrophils # (Auto) 7.2 Lymphocytes # (Auto) 0.3 Monocytes # (Auto) 0.4 Eosinophils # (Auto) 0.0 Basophils # (Auto) 0.0 CBC Comment DIFF FINAL Differential Comment Date/Time Source Procedure Growth Status 02/04/17 11:35 Blood Peripheral Aerobic Blood Culture - Final NO GROWTH IN 5 DAYS Complete 02/04/17 11:35 Blood Peripheral Anaerobic Blood Culture - Final NO GROWTH IN 5 DAYS Complete 02/10/17 06:06 Sputum Endotracheal Gram Stain - Final Resulted 02/10/17 06:06 Sputum Endotracheal Sputum Culture Pending Resulted Result Diagram: 02/10/17 6631 02/10/17 1214 Imaging Last Impressions Chest X-Ray 02/10/17 0000 Signed Impressions: Service Date/Time: Friday, February 10, 2017 09:49 - CONCLUSION: 1. Repositioning of the endotracheal tube, previously in the right mainstem bronchus and now appropriately positioned approximate 3.7 cm above the torri. 2. Persistent bibasilar airspace disease, medially on the right and more diffusely in the lower lung field on the left. 3. Possible associated left- sided effusion. Nura Cook MD Gastrostomy Tube Placement 02/05/17 0000 Signed Impressions: Service Date/Time: January 16:47 - CONCLUSION: Uncomplicated gastrostomy tube placement as above. Jorje Josue MD Lower Extremity Ultrasound 02/04/17 0000 Signed Impressions: Service Date/Time: Saturday, February 04, 2017 21:13 - CONCLUSION: 1. No evidence of deep venous thrombosis within the lower extremities. 2. Popliteal cyst on the left measuring 2.2 x 1.5 x 0.9 cm. Julian Mcmahan MD Head CT 02/04/17 0000 Signed Impressions: Service Date/Time: Saturday, February 04, 2017 17:50 - CONCLUSION: 1. No acute intracranial abnormality. 2. Tiny fluid level within the right maxillary sinus. Julian Mcmahan MD CT Angiography 02/04/17 0000 Signed Impressions: Service Date/Time: Saturday, February 04, 2017 17:54 - CONCLUSION: 1. No evidence of pulmonary embolism. 2. Bibasilar alveolar consolidations as well as scattered perihilar patchy opacities suggestive of probable pneumonia. Clinical correlation is recommended. 3. 1.7 cm right thyroid nodule. Julian Mcmahan MD Abdomen X-Ray 02/04/17 0000 Signed Impressions: Service Date/Time: January 05:52 - CONCLUSION: Interval placement of nasogastric tube with the tip in the left mainstem bronchus. Caesar Ramos MD Assessment and Plan Assessment and Plan PNA Acute VDRF Diarrhea cont vancomycin dc levaquin strart azithromycin start cefepime further rec's tro follow Ness Lopez MD Feb 10, 2017 17:29
[2017-02-10] MEDS: CEFEPIME INJ 2,000 MG in SODIUM CHLORIDE 0.9% INJ 100 ML IV SCH (17:58)
[2017-02-10] MEDS: VANCOMYCIN INJ 750 MG in SODIUM CHLOR 0.9% 250 ML INJ 250 ML IV SCH (17:59)
--- NOTE | 2017-02-10 18:48 | HHI.PR ---
Subjective Remarks 71 YOWF with VDRF,Bibasilar infilt Sedated with Fentanyl BP borderline gets anxious Daughter at BS Objective Vital Signs Vital Signs Date Time Temp Pulse Resp B/P (MAP) Pulse Ox O2 Delivery O2 Flow Rate FiO2 02/10/17 16:00 50 02/10/17 16:00 99.8 104 16 106/57 (73) 100 02/10/17 16:00 104 02/10/17 14:55 97 40 02/10/17 14:00 102 02/10/17 12:00 50 02/10/17 12:00 94 02/10/17 12:00 98.9 94 16 100/57 (71) 100 02/10/17 11:17 100 50 02/10/17 10:00 102 02/10/17 08:08 96 50 02/10/17 08:00 99.1 108 20 94/54 (67) 96 02/10/17 08:00 60 02/10/17 08:00 108 02/10/17 07:00 96 Mechanical Ventilator 60 02/10/17 06:00 109 02/10/17 04:30 103 18 87/58 (68) 97 02/10/17 04:00 111 02/10/17 04:00 98.2 111 17 59/41 (47) 95 02/10/17 02:00 106 02/10/17 01:55 98 60 02/10/17 00:22 92 50 02/10/17 00:00 93 02/10/17 00:00 97.3 93 65 145/71 (95) 79 02/09/17 22:00 97 02/09/17 20:04 95 35 02/09/17 20:00 100 Bi-Pap 35 02/09/17 20:00 117 02/09/17 20:00 97.7 117 31 158/79 (105) 98 I/O 02/09/17 02/09/17 02/09/17 02/10/17 02/10/17 02/10/17 07:00 15:00 23:00 07:00 15:00 23:00 Intake Total 751 ml 521 ml 283 ml 1411 ml 570 ml Output Total 600 ml 325 ml 200 ml 400 ml Balance 151 ml 196 ml 83 ml 1411 ml 170 ml Intake IV Total 250 ml 1411 ml Tube Feeding 501 ml 521 ml 283 ml 570 ml Output Urine Total 600 ml 325 ml 200 ml 300 ml Stool Total 100 ml # Bowel Movements 2 4 Result Diagram: 02/10/17 1403 02/10/17 1214 Objective Remarks GENERAL: Frail elderly female, on Vent SKIN: Warm and dry. HEAD: Normocephalic. EYES: No scleral icterus. No injection or drainage. NECK: Supple, trachea midline. No JVD or lymphadenopathy. CARDIOVASCULAR: Regular rate and rhythm without murmurs, gallops, or rubs. RESPIRATORY: Breath sounds equal bilaterally. No accessory muscle use. GASTROINTESTINAL: Abdomen soft, non-tender, nondistended. MUSCULOSKELETAL: No cyanosis, or edema. BACK: Nontender without obvious deformity. No CVA tenderness. A/P Assessment and Plan VDRF Bibasilar infilterates Hypotension Anxiety H/O Ca colon Weight loss PLAN: Dw pt's daughter Cont Abx Vanco, Cefepime and Zithro IV Solumedrol Fentanyl for sedation Xanax 0.25 mg q 6 hrs Yusef Hernandez MD Feb 10, 2017 18:47
[2017-02-10] MEDS: AZITHROMYCIN INJ 500 MG in SODIUM CHLOR 0.9% 250 ML INJ 250 ML IV SCH (19:54)
[2017-02-10] MEDS: ENOXAPARIN SODIUM 40 MG/0.4 ML SYRINGE SQ SCH (19:55)
[2017-02-11] VITALS (46 sets, daily range): BP systolic 92–139; BP diastolic 51–75; PULSE 96–109; RESP 16–36; TEMP 97.3–98.7; O2SAT 98–100
[2017-02-11] MEDS: INSULIN NovoLIN REGULAR SUPPLEMENTAL SCALE SQ SCH ×6 (00:19→20:14)
[2017-02-11] MEDS: SODIUM CHLOR 0.9% 1000 ML INJ 1,000 ML IV SCH (00:19)
[2017-02-11] MEDS: RESP: ALBUTEROL 2.5 MG/IPRATROPIUM 0.5 MG NEB (SCH) NEB ×6 (00:27→20:24)
[2017-02-11] MEDS ORDERED: SODIUM CHLOR 0.9% 1000 ML INJ 1,000 ML IV SCH (00:45)
[2017-02-11] MEDS: CHLORHEXIDINE GLUCONATE 2 % 1 PACK (2 CLOTHS) TOP SCH (04:00)
[2017-02-11] MEDS: DEXMEDETOMIDINE 200 MCG in NS 48 ML IV PRN ×2 (05:00→22:43)
[2017-02-11] MEDS: CEFEPIME INJ 2,000 MG in SODIUM CHLORIDE 0.9% INJ 100 ML IV SCH ×2 (06:50→16:18)
[2017-02-11] MEDS: VANCOMYCIN INJ 750 MG in SODIUM CHLOR 0.9% 250 ML INJ 250 ML IV SCH ×2 (06:50→19:17)
[2017-02-11 07:04] LABS: AUTOMATED NEUTROPHIL # 7.9 TH/MM3 (1.8-7.7); BASOPHIL % 0.1 % (0.0-2.0); HEMOGLOBIN 8.5 GM/DL (11.6-15.3); LYMPHOCYTE # 0.3 TH/MM3 (1.0-4.8); MEAN CELL VOLUME 90.1 FL (80.0-100.0); MEAN CORPUSCULAR HEMOGLOBIN 29.6 PG (27.0-34.0); MEAN CORPUSCULAR HGB CONC 32.8 % (32.0-36.0); MEAN PLATELET VOLUME 7.8 FL (7.0-11.0); MONO % 3.5 % (0.0-8.0); MONOCYTE # 0.3 TH/MM3 (0-0.9); NEUT % 93.4 % (16.0-70.0); PLATELET COUNT 109 TH/MM3 (150-450); RED BLOOD COUNT 2.89 MIL/MM3 (4.00-5.30); RED CELL DISTRIBUTION WIDTH 16.1 % (11.6-17.2); WHITE BLOOD COUNT 8.5 TH/MM3 (4.0-11.0)
[2017-02-11 07:46] LABS: BICARBONATE 30.7 MEQ/L (21.0-32.0); CALCIUM 7.9 MG/DL (8.5-10.1); CREATININE 0.65 MG/DL (0.50-1.00); MAGNESIUM 2.1 MG/DL (1.5-2.5); PHOSPHORUS 1.7 MG/DL (2.5-4.9)
[2017-02-11] MEDS: CHLORHEXIDINE 0.12% (ORAL KIT) 15 ML CUP MT SCH ×2 (09:49→20:15)
[2017-02-11] MEDS: methylPREDNISolone SOD SUCC 40 MG/1 ML VIAL IV PUSH SCH ×2 (10:05→20:14)
[2017-02-11] MEDS: SODIUM CHLORIDE 0.9% FLUSH 10 ML FLUSH IV FLUSH SCH ×2 (10:06→20:14)
[2017-02-11] MEDS: PANTOPRAZOLE SODIUM 40 MG VIAL IV PUSH SCH (10:06)
--- NOTE | 2017-02-11 10:15 | HHI.CCPN ---
Subjective Remarks/Hospital Course 02/04: 71-year-old female with a medical history significant for colon cancer in 2003 for which she underwent partial colon resection and chemotherapy, esophageal stricture with significant weight loss due to poor by mouth intake for which she was hospitalized in [place] in November 2016 for 2 weeks treated for pneumonia and subsequently evaluated for dysphagia and was found to have a sufficient stricture for which she was transferred to [facility] in [place] and underwent esophageal dilatation and was subsequently discharged 2 weeks later on a pured diet. Patient moved to [place] with her granddaughter and a few beats VAC was admitted to [facility] for worsening shortness of breath and was diagnosed with a pneumonia, hyponatremia. She was treated with antibiotics and subsequently discharged home however the following day had to be readmitted at [facility] for unresolved shortness of breath where she was hospitalized for a week and subsequently discharged to intermediate 3 days prior to this admission. Patient's by mouth intake has been poor since her discharge 3 days back according to her granddaughter as the pured diet at the intermediate is to take. Patient was found to have altered mental status today and was found slumped to one side with poor respirations. EMS was called and patient was noted to have O2 sats in the 60s. She was transported to the emergency room where she was placed on BiPAP for respiratory distress with hypoxic respiratory failure. She was also noted to be hypertensive on arrival with systolic blood pressure in the 200s. Patient was also found to have a sodium of 118. I was contacted by ER physician and accepted patient for admission to the ICU. When I evaluated the patient in the ER she was on BiPAP with full facemask. History was obtained by discussion with patient's granddaughter was at the bedside. Patient was much more awake at this time and trying to communicate however in view of BiPAP requirement was difficult to communicate with. She denied any chest pain at the time. Patient has chronic diarrhea since her colon surgery in 2003. Per the granddaughter she was doing well till about 3 months ago when she started having significant weight loss and poor by mouth intake possibly related to esophageal stricture and the fact that she was taking care of her sick family member at home. She has been advised a PEG tube per the granddaughter because of her poor nutritional status and poor by mouth intake. She has had problems with hyponatremia off and on for a while. Patient's granddaughter is very concerned about her poor nutritional status. 02/05: Tolerating nasal cannula. Underwent PEG tube placement by IR today. Sodium 122. 02/06 No events overnight. s/p PEG tube placement yesterday. Sodium level 131 this morning 02/07 No events overnight. On 50% VM with good sats. 02/08 No events overnight. Afebrile . Off BIPAP. 02/09 Patient is on BIPAP 02/03 with 45% FIO2> Afebrile. 02/10 Patient was intubated early this morning for acute hypercapnic resp acidosis. Afebrile. 02/11 No events overnight. Patient remains intubated. Afebrile. Objective Vital Signs Date Time Temp Pulse Resp B/P (MAP) Pulse Ox O2 Delivery O2 Flow Rate FiO2 02/11/17 08:39 99 35 02/11/17 02:00 101 02/11/17 00:00 98.7 16 104/57 (73) 02/10/17 19:00 Mechanical Ventilator 02/09/17 08:46 4.00 Result Diagram: 02/11/17 0558 02/11/17 0558 Other Results Laboratory Tests Test 02/10/17 12:14 02/10/17 14:03 02/10/17 18:15 02/11/17 05:58 White Blood Count 7.9 TH/MM3 7.9 TH/MM3 8.5 TH/MM3 Red Blood Count 2.59 MIL/MM3 2.59 MIL/MM3 2.89 MIL/MM3 Hemoglobin 7.8 GM/DL 7.8 GM/DL 8.5 GM/DL Hematocrit 23.8 % 23.9 % 26.0 % Mean Corpuscular Volume 92.0 FL 92.2 FL 90.1 FL Mean Corpuscular Hemoglobin 30.3 PG 30.2 PG 29.6 PG Mean Corpuscular Hemoglobin Concent 33.0 % 32.7 % 32.8 % Red Cell Distribution Width 15.8 % 16.3 % 16.1 % Platelet Count 110 TH/MM3 105 TH/MM3 109 TH/MM3 Mean Platelet Volume 7.8 FL 7.5 FL 7.8 FL CBC Comment AUTO DIFF DIFF FINAL DIFF FINAL Differential Total Cells Counted 100 Neutrophils % (Manual) 43 % Band Neutrophils % 53 % Lymphocytes % 1 % Monocytes % 3 % Neutrophils # (Manual) 7.6 TH/MM3 Differential Comment FINAL DIFF MANUAL Platelet Estimate LOW Platelet Morphology Comment NORMAL Red Cell Morphology Comment NORMAL Blood Urea Nitrogen 43 MG/DL 38 MG/DL Creatinine 0.84 MG/DL 0.65 MG/DL Random Glucose 280 MG/DL 206 MG/DL Calcium Level 8.1 MG/DL 7.9 MG/DL Sodium Level 144 MEQ/L 150 MEQ/L Potassium Level 3.5 MEQ/L 3.1 MEQ/L Chloride Level 103 MEQ/L 114 MEQ/L Carbon Dioxide Level 33.9 MEQ/L 30.7 MEQ/L Anion Gap 7 MEQ/L 5 MEQ/L Estimat Glomerular Filtration Rate 67 ML/MIN 90 ML/MIN Neutrophils (%) (Auto) 91.0 % 93.4 % Lymphocytes (%) (Auto) 3.5 % 3.0 % Monocytes (%) (Auto) 5.5 % 3.5 % Eosinophils (%) (Auto) 0.0 % 0.0 % Basophils (%) (Auto) 0.0 % 0.1 % Neutrophils # (Auto) 7.2 TH/MM3 7.9 TH/MM3 Lymphocytes # (Auto) 0.3 TH/MM3 0.3 TH/MM3 Monocytes # (Auto) 0.4 TH/MM3 0.3 TH/MM3 Eosinophils # (Auto) 0.0 TH/MM3 0.0 TH/MM3 Basophils # (Auto) 0.0 TH/MM3 0.0 TH/MM3 Stool C. difficile Toxin (PCR) NEGATIVE Stl C. difficile Toxin Epiderm 027 PRESUMPTIVE NEGATIVE Phosphorus Level 1.7 MG/DL Magnesium Level 2.1 MG/DL Imaging Last Impressions Chest X-Ray 02/10/17 0000 Signed Impressions: Service Date/Time: Friday, February 10, 2017 09:49 - CONCLUSION: 1. Repositioning of the endotracheal tube, previously in the right mainstem bronchus and now appropriately positioned approximate 3.7 cm above the torri. 2. Persistent bibasilar airspace disease, medially on the right and more diffusely in the lower lung field on the left. 3. Possible associated left- sided effusion. Nura Cook MD Gastrostomy Tube Placement 02/05/17 0000 Signed Impressions: Service Date/Time: January 16:47 - CONCLUSION: Uncomplicated gastrostomy tube placement as above. Jorje Josue MD Lower Extremity Ultrasound 02/04/17 0000 Signed Impressions: Service Date/Time: Saturday, February 04, 2017 21:13 - CONCLUSION: 1. No evidence of deep venous thrombosis within the lower extremities. 2. Popliteal cyst on the left measuring 2.2 x 1.5 x 0.9 cm. Julian Mcmahan MD Head CT 02/04/17 0000 Signed Impressions: Service Date/Time: Saturday, February 04, 2017 17:50 - CONCLUSION: 1. No acute intracranial abnormality. 2. Tiny fluid level within the right maxillary sinus. Julian Mcmahan MD CT Angiography 02/04/17 0000 Signed Impressions: Service Date/Time: Saturday, February 04, 2017 17:54 - CONCLUSION: 1. No evidence of pulmonary embolism. 2. Bibasilar alveolar consolidations as well as scattered perihilar patchy opacities suggestive of probable pneumonia. Clinical correlation is recommended. 3. 1.7 cm right thyroid nodule. Julian Mcmahan MD Abdomen X-Ray 02/04/17 0000 Signed Impressions: Service Date/Time: January 05:52 - CONCLUSION: Interval placement of nasogastric tube with the tip in the left mainstem bronchus. Caesar Ramos MD Objective Remarks GENERAL: Patient is 71 yo intubated SKIN: Warm and dry. HEAD: Normocephalic. EYES: No scleral icterus. No injection or drainage. NECK: Supple, trachea midline. No JVD or lymphadenopathy. CARDIOVASCULAR: Tachycardic without murmurs, gallops, or rubs. RESPIRATORY: Breath sounds equal bilaterally. No accessory muscle use. GASTROINTESTINAL: Abdomen soft, non-tender, nondistended. MUSCULOSKELETAL: No cyanosis, or edema. Neuro: Intubated A/P Assessment and Plan 71-year-old female with: Encephalopathy Acute respiratory failure- intubated Probable recurrent aspiration pneumonia (prehospital) Failure to thrive Hyponatremia Chronic diarrhea History of esophageal stricture status post recent esophageal dilation History of colon cancer Lower extremity edema Plan: Neuro: Monitor neuro status. Head CT negative for bleed. CV: Monitor HR and BP keep MAP>65mmHg Pulm: Continue with vent support keep sat >92% Bronchodilators. On solumedrol 40mg Q12, ICU vent bundle. CT chest with no evidence of PE and shows bibasilar infiltrates concerning for recurrent aspiration pneumonia Pulm is following- Start SBT as devante. GI/liver:s/p PEG tube placement by IR 02/05 Continue tube feeds-Jevity 1.5 @ 45ml/hr Renal/: Monitor renal function, I/O's, electrolytes replacement as needed. Will need K, Phos replacement today Renal signed off, place on Free water 250ml Q8 monitor sodium level. ID: Continue abx( IV Cefepime, Azithromycin, Vanco) Monitor for signs of infections ( Fever, WBC) Follow up on sputum cx. ID is following Endocrine: SSI for glycemic control add Levemir 5u Q12 Heme-onc: Monitor CBC and coags. Prophylaxis: Pepcid/SCDs. Subcutaneous Lovenox. Palliative care is following Level 3 Varun Yusuf MD Feb 11, 2017 10:15
[2017-02-11] MEDS: POTASSIUM CHLOR 20 MEQ PREMIX 100 ML IV PRN (11:32)
[2017-02-11] MEDS: INSULIN DETEMIR 100 UNITS/ML VIAL SQ SCH ×2 (11:32→20:14)
[2017-02-11] MEDS: FREE WATER G-TUBE SCH ×2 (14:00→20:15)
[2017-02-11] MEDS: POTASSIUM PHOSPHATE INJ 30 MMOL in SODIUM CHLOR 0.9% 250 ML INJ 250 ML IV PRN (14:36)
--- NOTE | 2017-02-11 14:49 | HHI.HCPN ---
Reason for visit a. To assist with evaluation and management of symptoms including:shortness of breath, decreased oral intake, debility b. To assist medical decision maker(s) with: better understanding of current medical conditions; weighing benefits/burdens of medical treatment options; making medical treatment decisions. Subjective/Interval History Patient seen and examined in her room. Remains intubated on a mechanical ventilator. FiO2 35% with O2 saturation in the high 90s. Patient is on his Precedex drip, infusing at 0.3 mcg/kg/hr. Patient is awake, communicating by trying to mouth some words, and writing. She and his facial grimacing, shakes head for no pain when asked if she is in pain. Patient is hemodynamically stable. Laboratory workup revealing WBC 8.5, hemoglobin 8.5, hematocrit 26.0, platelet count 109, sodium 150, potassium 3.1 BUN/creatinine 8/0.65. No recent imaging.Patient now has a rectal bag in place with liquid stool. C diff ordered. Patient's granddaughter at bedside. No changes in goals-remain aggressive. Case discussed with bedside RN. Case discussed with bedside RN and Dr. He. Family/friend interactions Granddaughter at bedside. . Advance Directives Living Will: Never completed Health Care Surrogate: Copy in medical record Advance Directive Specifics Date completed: December 19, 2016 . Health Care Surrogate(s): Granddaughter-[facility]- Connie Cotton- [phone] Alternate [facility]- Freddy Cotton [phone] . Objective Vital Signs Date Time Temp Pulse Resp B/P (MAP) Pulse Ox O2 Delivery O2 Flow Rate FiO2 02/11/17 12:00 107 02/11/17 12:00 35 02/11/17 11:30 105 16 126/60 (82) 99 02/11/17 11:24 98 35 02/11/17 11:15 106 16 129/60 (83) 100 02/11/17 11:00 104 16 119/59 (79) 99 02/11/17 10:45 107 18 139/68 (91) 100 02/11/17 10:30 101 16 122/60 (80) 100 02/11/17 10:15 103 16 118/58 (78) 100 02/11/17 10:00 105 17 123/61 (81) 98 02/11/17 10:00 105 02/11/17 09:45 106 16 129/63 (85) 100 02/11/17 09:30 106 16 128/62 (84) 100 02/11/17 09:15 104 16 129/61 (83) 100 02/11/17 09:00 107 16 132/58 (82) 100 02/11/17 08:45 102 16 132/67 (88) 99 02/11/17 08:39 99 35 02/11/17 08:30 106 16 134/63 (86) 99 02/11/17 08:15 103 16 128/60 (82) 99 02/11/17 08:00 35 02/11/17 08:00 98.5 104 16 134/65 (88) 100 02/11/17 08:00 104 02/11/17 07:45 105 20 130/75 (93) 100 02/11/17 07:30 107 16 134/71 (92) 100 02/11/17 07:15 107 16 136/67 (90) 100 02/11/17 07:00 100 Mechanical Ventilator 35 02/11/17 07:00 105 16 139/64 (89) 100 02/11/17 04:26 100 40 02/11/17 02:00 101 02/11/17 00:29 100 40 02/11/17 00:00 96 02/11/17 00:00 50 02/11/17 00:00 98.7 96 16 104/57 (73) 100 02/10/17 22:00 95 02/10/17 20:24 97 40 02/10/17 20:00 50 02/10/17 20:00 97 02/10/17 20:00 99.2 97 16 83/46 (58) 98 02/10/17 19:00 96 Mechanical Ventilator 60 02/10/17 18:00 103 02/10/17 16:00 50 02/10/17 16:00 99.8 104 16 106/57 (73) 100 02/10/17 16:00 104 02/10/17 14:55 97 40 Intake & Output 02/11/17 02/11/17 07:00 19:00 Intake Total 525 ml 357.5 ml Balance 525 ml 357.5 ml Intake IV Total 525 ml 357.5 ml Physical Exam CONSTITUTIONAL/GENERAL: This is a cachectic, ill-looking elderly patient, appears older than stated age, Intubated. TUBES/LINES/DRAINS: ETT, Cabrera catheter, PIV, PEG tube, rectal bag SKIN: No jaundice. Ecchymoses on upper extremities-B2 skin tear to left elbow. Skin temperature appropriate. Not diaphoretic. HEAD: Atraumatic. Normocephalic. EYES: Pupils equal and round and reactive. Extraocular motions intact. No scleral icterus. No injection or drainage. Fundi not examined. ENT: Hearing grossly normal. Nose without bleeding or purulent drainage. NECK: Trachea midline. Supple, nontender. CARDIOVASCULAR: Regular rate and rhythm without murmurs, gallops, or rubs . No JVD. Peripheral pulses symmetric. Weeping, pitting edema to bilateral lower extremities RESPIRATORY/CHEST: Symmetric, unlabored respirations. Rhonchi to auscultation. Diminished Breath sounds equal bilaterally. Intubated, FIO2=55% GASTROINTESTINAL: Abdomen soft, non-tender, nondistended. Bowel sounds present. PEG tube- Jevity 1.5 infusing GENITOURINARY: Without palpable bladder distension. Cabrera catheter in place. MUSCULOSKELETAL: Extremities without clubbing. No joint tenderness or effusion noted. No calf tenderness. No mottling. Improved bilateral lower extremities edema. NEUROLOGICAL: Intubated on mechanical ventilation. Withdraws with all 4 extremities. PSYCHIATRIC: Unable to assess,now intubated on mechanical ventilation. . . Diagnostic Tests Laboratory Laboratory Tests Test 02/08/17 19:46 02/09/17 05:15 02/09/17 09:50 02/09/17 11:18 Phosphorus Level 3.6 MG/DL (2.5-4.9) White Blood Count 4.8 TH/MM3 (4.0-11.0) Red Blood Count 3.67 MIL/MM3 (4.00-5.30) Hemoglobin 10.8 GM/DL (11.6-15.3) Hematocrit 32.3 % (35.0-46.0) Mean Corpuscular Volume 88.2 FL (80.0-100.0) Mean Corpuscular Hemoglobin 29.6 PG (27.0-34.0) Mean Corpuscular Hemoglobin Concent 33.5 % (32.0-36.0) Red Cell Distribution Width 15.8 % (11.6-17.2) Platelet Count 161 TH/MM3 (150-450) Mean Platelet Volume 7.1 FL (7.0-11.0) Neutrophils (%) (Auto) 90.1 % (16.0-70.0) Lymphocytes (%) (Auto) 4.2 % (9.0-44.0) Monocytes (%) (Auto) 5.6 % (0.0-8.0) Eosinophils (%) (Auto) 0.0 % (0.0-4.0) Basophils (%) (Auto) 0.1 % (0.0-2.0) Neutrophils # (Auto) 4.4 TH/MM3 (1.8-7.7) Lymphocytes # (Auto) 0.2 TH/MM3 (1.0-4.8) Monocytes # (Auto) 0.3 TH/MM3 (0-0.9) Eosinophils # (Auto) 0.0 TH/MM3 (0-0.4) Basophils # (Auto) 0.0 TH/MM3 (0-0.2) CBC Comment DIFF FINAL Differential Comment Blood Urea Nitrogen 21 MG/DL (7-18) Creatinine 0.51 MG/DL (0.50-1.00) Random Glucose 206 MG/DL (74-106) Calcium Level 8.3 MG/DL (8.5-10.1) Sodium Level 142 MEQ/L (136-145) Potassium Level 4.2 MEQ/L (3.5-5.1) Chloride Level 95 MEQ/L (98-107) Carbon Dioxide Level 44.4 MEQ/L (21.0-32.0) Anion Gap 3 MEQ/L (5-15) Estimat Glomerular Filtration Rate 119 ML/MIN (>89) Blood Gas Puncture Site RT RADIAL RT RADIAL Blood Gas Patient Temperature 98.6 98.6 Blood Gas HCO3 46 mmol/L (22-26) 46 mmol/L (22-26) Blood Gas Base Excess 18.7 mmol/L (-2-2) 19.0 mmol/L (-2-2) Blood Gas Oxygen Saturation 98 % (90-100) 97 % (90-100) Arterial Blood pH 7.30 (7.380-7.420) 7.34 (7.380-7.420) Arterial Blood Partial Pressure CO2 95 mmHg (38-42) 87 mmHg (38-42) Arterial Blood Partial Pressure O2 309 mmHg (61-120) 117 mmHg (61-120) Arterial Blood Oxygen Content 14.4 Vol % (12.0-20.0) 13.8 Vol % (12.0-20.0) Arterial Blood Carboxyhemoglobin 0.8 % (0-4) 1.0 % (0-4) Arterial Blood Methemoglobin 0.9 % (0-2) 0.8 % (0-2) Blood Gas Hemoglobin 9.9 G/DL (12.0-16.0) 10.0 G/DL (12.0-16.0) Oxygen Delivery Device NASAL CANNULA BIPAP Blood Gas Liter Flow 4 L/M Blood Gas Ventilator Setting IPAP 15 EPAP6 Blood Gas Inspired Oxygen 45 % Test 02/10/17 01:17 02/10/17 06:00 02/10/17 10:00 02/10/17 12:14 Blood Gas Puncture Site LT RADIAL RT RADIAL RT RADIAL Blood Gas Patient Temperature 98.6 98.6 98.6 Blood Gas HCO3 44 mmol/L (22-26) 38 mmol/L (22-26) 34 mmol/L (22-26) Blood Gas Base Excess 15.0 mmol/L (-2-2) 13.0 mmol/L (-2-2) 9.2 mmol/L (-2-2) Blood Gas Oxygen Saturation 97 % (90-100) 85 % (90-100) 95 % (90-100) Arterial Blood pH 7.14 (7.380-7.420) 7.44 (7.380-7.420) 7.39 (7.380-7.420) Arterial Blood Partial Pressure CO2 135 mmHg (38-42) 56 mmHg (38-42) 58 mmHg (38-42) Arterial Blood Partial Pressure O2 192 mmHg (61-120) 51 mmHg (61-120) 89 mmHg (61-120) Arterial Blood Oxygen Content 15.6 Vol % (12.0-20.0) 14.5 Vol % (12.0-20.0) 10.3 Vol % (12.0-20.0) Arterial Blood Carboxyhemoglobin 0.8 % (0-4) 1.2 % (0-4) 1.1 % (0-4) Arterial Blood Methemoglobin 1.1 % (0-2) 0.9 % (0-2) 1.1 % (0-2) Blood Gas Hemoglobin 11.1 G/DL (12.0-16.0) 12.2 G/DL (12.0-16.0) 7.6 G/DL (12.0-16.0) Oxygen Delivery Device BIPAP VENTILATOR PRVCAC/VT450/R16/P5 Blood Gas Ventilator Setting 15/6 Blood Gas Inspired Oxygen 100 % 50 % 50 % White Blood Count 7.9 TH/MM3 (4.0-11.0) Red Blood Count 2.59 MIL/MM3 (4.00-5.30) Hemoglobin 7.8 GM/DL (11.6-15.3) Hematocrit 23.8 % (35.0-46.0) Mean Corpuscular Volume 92.0 FL (80.0-100.0) Mean Corpuscular Hemoglobin 30.3 PG (27.0-34.0) Mean Corpuscular Hemoglobin Concent 33.0 % (32.0-36.0) Red Cell Distribution Width 15.8 % (11.6-17.2) Platelet Count 110 TH/MM3 (150-450) Mean Platelet Volume 7.8 FL (7.0-11.0) CBC Comment AUTO DIFF Differential Total Cells Counted 100 Neutrophils % (Manual) 43 % (16-70) Band Neutrophils % 53 % (0-6) Lymphocytes % 1 % (9-44) Monocytes % 3 % (0-8) Neutrophils # (Manual) 7.6 TH/MM3 (1.8-7.7) Differential Comment FINAL DIFF MANUAL Platelet Estimate LOW (NORMAL) Platelet Morphology Comment NORMAL (NORMAL) Red Cell Morphology Comment NORMAL (NORMAL) Blood Urea Nitrogen 43 MG/DL (7-18) Creatinine 0.84 MG/DL (0.50-1.00) Random Glucose 280 MG/DL (74-106) Calcium Level 8.1 MG/DL (8.5-10.1) Sodium Level 144 MEQ/L (136-145) Potassium Level 3.5 MEQ/L (3.5-5.1) Chloride Level 103 MEQ/L (98-107) Carbon Dioxide Level 33.9 MEQ/L (21.0-32.0) Anion Gap 7 MEQ/L (5-15) Estimat Glomerular Filtration Rate 67 ML/MIN (>89) Test 02/10/17 14:03 02/10/17 18:15 02/11/17 05:58 White Blood Count 7.9 TH/MM3 (4.0-11.0) 8.5 TH/MM3 (4.0-11.0) Red Blood Count 2.59 MIL/MM3 (4.00-5.30) 2.89 MIL/MM3 (4.00-5.30) Hemoglobin 7.8 GM/DL (11.6-15.3) 8.5 GM/DL (11.6-15.3) Hematocrit 23.9 % (35.0-46.0) 26.0 % (35.0-46.0) Mean Corpuscular Volume 92.2 FL (80.0-100.0) 90.1 FL (80.0-100.0) Mean Corpuscular Hemoglobin 30.2 PG (27.0-34.0) 29.6 PG (27.0-34.0) Mean Corpuscular Hemoglobin Concent 32.7 % (32.0-36.0) 32.8 % (32.0-36.0) Red Cell Distribution Width 16.3 % (11.6-17.2) 16.1 % (11.6-17.2) Platelet Count 105 TH/MM3 (150-450) 109 TH/MM3 (150-450) Mean Platelet Volume 7.5 FL (7.0-11.0) 7.8 FL (7.0-11.0) Neutrophils (%) (Auto) 91.0 % (16.0-70.0) 93.4 % (16.0-70.0) Lymphocytes (%) (Auto) 3.5 % (9.0-44.0) 3.0 % (9.0-44.0) Monocytes (%) (Auto) 5.5 % (0.0-8.0) 3.5 % (0.0-8.0) Eosinophils (%) (Auto) 0.0 % (0.0-4.0) 0.0 % (0.0-4.0) Basophils (%) (Auto) 0.0 % (0.0-2.0) 0.1 % (0.0-2.0) Neutrophils # (Auto) 7.2 TH/MM3 (1.8-7.7) 7.9 TH/MM3 (1.8-7.7) Lymphocytes # (Auto) 0.3 TH/MM3 (1.0-4.8) 0.3 TH/MM3 (1.0-4.8) Monocytes # (Auto) 0.4 TH/MM3 (0-0.9) 0.3 TH/MM3 (0-0.9) Eosinophils # (Auto) 0.0 TH/MM3 (0-0.4) 0.0 TH/MM3 (0-0.4) Basophils # (Auto) 0.0 TH/MM3 (0-0.2) 0.0 TH/MM3 (0-0.2) CBC Comment DIFF FINAL DIFF FINAL Differential Comment Stool C. difficile Toxin (PCR) NEGATIVE (NEGATIVE) Stl C. difficile Toxin Epiderm 027 PRESUMPTIVE NEGATIVE Blood Urea Nitrogen 38 MG/DL (7-18) Creatinine 0.65 MG/DL (0.50-1.00) Random Glucose 206 MG/DL (74-106) Calcium Level 7.9 MG/DL (8.5-10.1) Phosphorus Level 1.7 MG/DL (2.5-4.9) Magnesium Level 2.1 MG/DL (1.5-2.5) Sodium Level 150 MEQ/L (136-145) Potassium Level 3.1 MEQ/L (3.5-5.1) Chloride Level 114 MEQ/L (98-107) Carbon Dioxide Level 30.7 MEQ/L (21.0-32.0) Anion Gap 5 MEQ/L (5-15) Estimat Glomerular Filtration Rate 90 ML/MIN (>89) Result Diagram: 02/11/17 0558 02/11/17 0558 Microbiology Microbiology Date/Time Source Procedure Growth Status 02/10/17 06:06 Sputum Endotracheal Gram Stain - Final Resulted 02/10/17 06:06 Sputum Endotracheal Sputum Culture - Preliminary HEAVY GROWTH NORMAL RESPIRATORY RADHA... Resulted Procedures 02/05/17 PEG tube placement 02/10/17- Intubated . Assessment and Plan Disease Oriented Problem List: (1) Sepsis (2) Hyponatremia (3) Pneumonia (4) Hypoxia Symptom Scale: (1) Shortness of breath Comment: Multifactorial. Patient has had multiple hospitalizations for shortness of breath/pneumonia. Mild respiratory distress. On BiPAP. . (2) Decreased oral intake Comment: History of dysphagia status post dilatation. Patient was currently on [facility] diet [facility] [place] [facility]. His lost approximately 25 pounds in 2 months. Now has a PEG Tube-receiving TF. . (3) Debility Comment: Progressive. Patient has had prolonged hospitalization in 4 different facilities since November 2016. Since November she has been hospitalized approximately 5 times. Patient was discharged recently into a half-way facility. Patient has also lost weight significantly. Has not been able to participate in physical therapy due to her illness. Patient remains at high risk for deterioration if she continues to have shortness of breath, which will limit her participation in physical therapy. PT was consulted- recommending PT at rehab. . Pertinent Non-Medical Issues Psychosocial:Patient was born and raised in [place]. Patient still lives in [place] but came to [place] with her granddaughter to visit in late November, [place]. Patient was twice and once and her last a few years ago . She has 1 adult daughter, one grandchild and 2 great grandchildren. Patients is level of education is high school. 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 Patient has been living alone independently in [place] and helps take care of her elderly mother was 95 years old. Spiritual: Legal:Patient has a designated [facility] Ethical issues impacting care: None identified at this time. Important Contacts Granddaughter-[facility]- Connie Cotton- [phone] Alternate [facility]- Freddy Cotton [phone] Daughter- Flor Bennett [phone] . Prognosis Mrs Knapp is a 71 years old female with a past medical history of colon cancer, esophageal strictures, pneumonia and anxiety. Patient has had multiple hospitalizations for persistent pneumonia, hyponatremia and dysphagia. She was recently discharged from [facility] to a half-way facility. Patient presented via EMS to [facility] ER on 02/04/17 after she was found slumped over, with cyanosis of limbs and in respiratory distress at [facility]. Patient`s O2 saturation were in the 80s. Given ongoing comorbidities and recent multiple hospitalizations, patient remains at high risk for complications, deterioration in decline. . Code Status: Full Code Plan PLAN: Legal decision maker: Patient does not appear to have clear understanding and insight of her clinical condition. Recommending joint decision making with her granddaughter Connie Cotton. Her alternate HCS- Freddy Cotton. Goals: 02/11/17 Remain aggressive- patient`s granddaughter at bedside. CODE STATUS: Full code SYMPTOMS: * Shortness of breath:Multifactorial. Patient has had multiple hospitalizations for shortness of breath/pneumonia. Chest x-ray revealed a space infiltrate in right base, with possible small effusion. Mild respiratory distress noted. Received antibiotics in the ER. Patient continues gets hypercapnic whenever she gets weaned off BiPAP. She is now intubated on mechanical ventilation. * Decreased oral intake:History of dysphagia status post dilatation. Patient was currently on [place]ured diet in [place] [facility]. She lost approximately 25 pounds in 2 months. Recommending swallowing evaluation by speech therapy. Patient failed swallow evaluation today. GI consulted. NG tube attempted to be placed at bedside but unsuccessful. PEG placement by IRFatoumaat Beyer 1.5 infusing at 45 via PEG. Recommending alumni secretary consultation. . * Debility:Progressive. Patient has had prolonged hospitalization in 4 different facilities since November 2016. Since November she has been hospitalized approximately 5 times. Patient was discharged recently into a half-way facility. Patient has also lost weight significantly. Has not been able to participate in physical therapy due to her illness. Patient remains at high risk for deterioration if she continues to have shortness of breath, which will limit her participation in physical therapy. Patient may benefit from physical therapy. Palliative care will continue to follow the patient during hospital course as condition evolves, to assist patient/decision-maker with understanding of their medical conditions, weighing benefits/burdens of treatment options, for clarification of goals of treatment. Additionally will assist with any symptoms of palliative concern. . Attestation To help prompt me to consider important information that might be impacting today's encounter and assessment, information from prior notes written by myself or my colleagues may have been "brought forward" into today's note. My signature on this note, however, is an attestation that I personally performed the exam, history, and/or decision-making noted today, and, unless otherwise indicated, the interactions with patient, family, and staff as well as the review of records all occurred today. I also attest that the listed assessment and stated plan reflect my best clinical judgment today based on the combination of historical information, prior notes, and today's exam/ interactions. When time spent is documented, it refers only to time spent today by the signer, or if indicated, combined time spent today by collaborating physician/nurse practitioner. Julianne More Feb 11, 2017 14:49
[2017-02-11] MEDS: AZITHROMYCIN INJ 500 MG in SODIUM CHLOR 0.9% 250 ML INJ 250 ML IV SCH (17:02)
--- NOTE | 2017-02-11 18:34 | HHI.PR ---
Subjective Remarks 71 YOWF with VDRF,Bibasilar infilt Sedated with Fentanyl BP borderline gets anxious Grand Daughter at BS Weaned to CPAP Objective Vital Signs Vital Signs Date Time Temp Pulse Resp B/P (MAP) Pulse Ox O2 Delivery O2 Flow Rate FiO2 02/11/17 16:12 99 35 02/11/17 12:00 107 02/11/17 12:00 35 02/11/17 11:30 105 16 126/60 (82) 99 02/11/17 11:24 98 35 02/11/17 11:15 106 16 129/60 (83) 100 02/11/17 11:00 104 16 119/59 (79) 99 02/11/17 10:45 107 18 139/68 (91) 100 02/11/17 10:30 101 16 122/60 (80) 100 02/11/17 10:15 103 16 118/58 (78) 100 02/11/17 10:00 105 17 123/61 (81) 98 02/11/17 10:00 105 02/11/17 09:45 106 16 129/63 (85) 100 02/11/17 09:30 106 16 128/62 (84) 100 02/11/17 09:15 104 16 129/61 (83) 100 02/11/17 09:00 107 16 132/58 (82) 100 02/11/17 08:45 102 16 132/67 (88) 99 02/11/17 08:39 99 35 02/11/17 08:30 106 16 134/63 (86) 99 02/11/17 08:15 103 16 128/60 (82) 99 02/11/17 08:00 35 02/11/17 08:00 98.5 104 16 134/65 (88) 100 02/11/17 08:00 104 02/11/17 07:45 105 20 130/75 (93) 100 02/11/17 07:30 107 16 134/71 (92) 100 02/11/17 07:15 107 16 136/67 (90) 100 02/11/17 07:00 100 Mechanical Ventilator 35 02/11/17 07:00 105 16 139/64 (89) 100 02/11/17 04:26 100 40 02/11/17 02:00 101 02/11/17 00:29 100 40 02/11/17 00:00 96 02/11/17 00:00 50 02/11/17 00:00 98.7 96 16 104/57 (73) 100 02/10/17 22:00 95 02/10/17 20:24 97 40 02/10/17 20:00 50 02/10/17 20:00 97 02/10/17 20:00 99.2 97 16 83/46 (58) 98 02/10/17 19:00 96 Mechanical Ventilator 60 I/O 02/10/17 02/10/17 02/10/17 02/11/17 02/11/17 02/11/17 07:00 15:00 23:00 07:00 15:00 23:00 Intake Total 283 ml 1911 ml 670 ml 525 ml 357.5 ml Output Total 200 ml 400 ml Balance 83 ml 1911 ml 270 ml 525 ml 357.5 ml Intake IV Total 1911 ml 100 ml 525 ml 357.5 ml Tube Feeding 283 ml 570 ml Output Urine Total 200 ml 300 ml Stool Total 100 ml # Bowel Movements 4 Result Diagram: 02/11/17 0558 02/11/17 0558 Objective Remarks GENERAL: Frail elderly female, on Vent SKIN: Warm and dry. HEAD: Normocephalic. EYES: No scleral icterus. No injection or drainage. NECK: Supple, trachea midline. No JVD or lymphadenopathy. CARDIOVASCULAR: Regular rate and rhythm without murmurs, gallops, or rubs. RESPIRATORY: Breath sounds equal bilaterally. No accessory muscle use. GASTROINTESTINAL: Abdomen soft, non-tender, nondistended. MUSCULOSKELETAL: No cyanosis, or edema. BACK: Nontender without obvious deformity. No CVA tenderness. A/P Assessment and Plan VDRF Bibasilar infilterates Hypotension Anxiety H/O Ca colon Weight loss PLAN: Dw pt's daughter Cont Abx Vanco, Cefepime and Zithro IV Solumedrol Fentanyl for sedation Xanax 0.25 mg q 6 hrs CPAP trial Yusef Hernandez MD Feb 11, 2017 18:34
[2017-02-11] MEDS: ALPRAZolam 0.5 MG TAB PO PRN (19:16)
[2017-02-11] MEDS: ENOXAPARIN SODIUM 40 MG/0.4 ML SYRINGE SQ SCH (20:13)
[2017-02-12] VITALS (54 sets, daily range): BP systolic 77–162; BP diastolic 42–82; PULSE 83–123; RESP 16–49; TEMP 97.5–98.6; O2SAT 94–100
[2017-02-12] MEDS: CHLORHEXIDINE GLUCONATE 2 % 1 PACK (2 CLOTHS) TOP SCH (00:48)
[2017-02-12] MEDS: INSULIN NovoLIN REGULAR SUPPLEMENTAL SCALE SQ SCH ×6 (00:48→20:30)
[2017-02-12] MEDS: RESP: ALBUTEROL 2.5 MG/IPRATROPIUM 0.5 MG NEB (SCH) NEB ×7 (01:02→23:07)
[2017-02-12] MEDS: FREE WATER G-TUBE SCH ×3 (04:12→18:00)
[2017-02-12] MEDS: CEFEPIME INJ 2,000 MG in SODIUM CHLORIDE 0.9% INJ 100 ML IV SCH ×2 (04:12→18:59)
[2017-02-12] MEDS ORDERED: PHARMACY ORDERED LAB ONE (05:45)
[2017-02-12] MEDS: VANCOMYCIN INJ 750 MG in SODIUM CHLOR 0.9% 250 ML INJ 250 ML IV SCH (05:55)
[2017-02-12 07:08] LABS: AUTOMATED NEUTROPHIL # 10.8 TH/MM3 (1.8-7.7); BASOPHIL % 0.1 % (0.0-2.0); HEMATOCRIT 23.7 % (35.0-46.0); HEMOGLOBIN 7.8 GM/DL (11.6-15.3); LYMPH % 2.3 % (9.0-44.0); LYMPHOCYTE # 0.3 TH/MM3 (1.0-4.8); MEAN CELL VOLUME 90.7 FL (80.0-100.0); MEAN CORPUSCULAR HEMOGLOBIN 30.1 PG (27.0-34.0); MEAN CORPUSCULAR HGB CONC 33.1 % (32.0-36.0); MEAN PLATELET VOLUME 8.6 FL (7.0-11.0); MONO % 2.5 % (0.0-8.0); MONOCYTE # 0.3 TH/MM3 (0-0.9); NEUT % 95.1 % (16.0-70.0); PLATELET COUNT 89 TH/MM3 (150-450); RED BLOOD COUNT 2.61 MIL/MM3 (4.00-5.30); RED CELL DISTRIBUTION WIDTH 16.2 % (11.6-17.2); WHITE BLOOD COUNT 11.4 TH/MM3 (4.0-11.0)
[2017-02-12 07:40] LABS: BICARBONATE 29.6 MEQ/L (21.0-32.0); CREATININE 0.53 MG/DL (0.50-1.00); MAGNESIUM 2.2 MG/DL (1.5-2.5); PHOSPHORUS 3.4 MG/DL (2.5-4.9); VANCOMYCIN TROUGH 31.9 MCG/ML (5.0-10.0)
[2017-02-12] MEDS: ALPRAZolam 0.5 MG TAB PO PRN ×2 (08:43→15:10)
[2017-02-12] MEDS: PANTOPRAZOLE SODIUM 40 MG VIAL IV PUSH SCH (08:44)
[2017-02-12] MEDS: methylPREDNISolone SOD SUCC 40 MG/1 ML VIAL IV PUSH SCH ×2 (08:44→20:29)
[2017-02-12] MEDS: SODIUM CHLORIDE 0.9% FLUSH 10 ML FLUSH IV FLUSH SCH ×2 (08:45→20:30)
[2017-02-12] MEDS: CHLORHEXIDINE 0.12% (ORAL KIT) 15 ML CUP MT SCH ×2 (08:50→20:29)
[2017-02-12] MEDS: INSULIN DETEMIR 100 UNITS/ML VIAL SQ SCH ×2 (08:51→20:29)
[2017-02-12] MEDS: DEXMEDETOMIDINE 200 MCG in NS 48 ML IV PRN ×2 (09:23→19:52)
--- NOTE | 2017-02-12 09:54 | HHI.CCPN ---
Subjective Remarks/Hospital Course 02/04: 71-year-old female with a medical history significant for colon cancer in 2003 for which she underwent partial colon resection and chemotherapy, esophageal stricture with significant weight loss due to poor by mouth intake for which she was hospitalized in [place] in November 2016 for 2 weeks treated for pneumonia and subsequently evaluated for dysphagia and was found to have a sufficient stricture for which she was transferred to [place] in [place] and underwent esophageal dilatation and was subsequently discharged 2 weeks later on a pured diet. Patient moved to [place] with her granddaughter and a few beats VAC was admitted to [facility] for worsening shortness of breath and was diagnosed with a pneumonia, hyponatremia. She was treated with antibiotics and subsequently discharged home however the following day had to be readmitted at [facility] for unresolved shortness of breath where she was hospitalized for a week and subsequently discharged to long term 3 days prior to this admission. Patient's by mouth intake has been poor since her discharge 3 days back according to her granddaughter as the pured diet at the long term is to take. Patient was found to have altered mental status today and was found slumped to one side with poor respirations. EMS was called and patient was noted to have O2 sats in the 60s. She was transported to the emergency room where she was placed on BiPAP for respiratory distress with hypoxic respiratory failure. She was also noted to be hypertensive on arrival with systolic blood pressure in the 200s. Patient was also found to have a sodium of 118. I was contacted by ER physician and accepted patient for admission to the ICU. When I evaluated the patient in the ER she was on BiPAP with full facemask. History was obtained by discussion with patient's granddaughter was at the bedside. Patient was much more awake at this time and trying to communicate however in view of BiPAP requirement was difficult to communicate with. She denied any chest pain at the time. Patient has chronic diarrhea since her colon surgery in 2003. Per the granddaughter she was doing well till about 3 months ago when she started having significant weight loss and poor by mouth intake possibly related to esophageal stricture and the fact that she was taking care of her sick family member at home. She has been advised a PEG tube per the granddaughter because of her poor nutritional status and poor by mouth intake. She has had problems with hyponatremia off and on for a while. Patient's granddaughter is very concerned about her poor nutritional status. 02/05: Tolerating nasal cannula. Underwent PEG tube placement by IR today. Sodium 122. 02/06 No events overnight. s/p PEG tube placement yesterday. Sodium level 131 this morning 02/07 No events overnight. On 50% VM with good sats. 02/08 No events overnight. Afebrile . Off BIPAP. 02/09 Patient is on BIPAP 02/03 with 45% FIO2> Afebrile. 02/10 Patient was intubated early this morning for acute hypercapnic resp acidosis. Afebrile. 02/11 No events overnight. Patient remains intubated. Afebrile. 02/12 Patient remains intubated and on Precedex drip for sedation. Afebrile. Objective Vital Signs Date Time Temp Pulse Resp B/P (MAP) Pulse Ox O2 Delivery O2 Flow Rate FiO2 02/12/17 08:15 100 35 02/12/17 08:00 98.3 97 19 122/59 (80) 02/11/17 20:38 Ventilator 02/09/17 08:46 4.00 Intake and Output 02/12/17 02/12/17 02/13/17 08:00 16:00 00:00 Intake Total 579 ml Output Total 425 ml Balance 154 ml Result Diagram: 02/12/17 0600 02/12/17 0600 Other Results Laboratory Tests Test 02/12/17 06:00 White Blood Count 11.4 TH/MM3 Red Blood Count 2.61 MIL/MM3 Hemoglobin 7.8 GM/DL Hematocrit 23.7 % Mean Corpuscular Volume 90.7 FL Mean Corpuscular Hemoglobin 30.1 PG Mean Corpuscular Hemoglobin Concent 33.1 % Red Cell Distribution Width 16.2 % Platelet Count 89 TH/MM3 Mean Platelet Volume 8.6 FL Neutrophils (%) (Auto) 95.1 % Lymphocytes (%) (Auto) 2.3 % Monocytes (%) (Auto) 2.5 % Eosinophils (%) (Auto) 0.0 % Basophils (%) (Auto) 0.1 % Neutrophils # (Auto) 10.8 TH/MM3 Lymphocytes # (Auto) 0.3 TH/MM3 Monocytes # (Auto) 0.3 TH/MM3 Eosinophils # (Auto) 0.0 TH/MM3 Basophils # (Auto) 0.0 TH/MM3 CBC Comment AUTO DIFF Differential Comment AUTO DIFF CONFIRMED Blood Urea Nitrogen 45 MG/DL Creatinine 0.53 MG/DL Random Glucose 172 MG/DL Calcium Level 8.0 MG/DL Phosphorus Level 3.4 MG/DL Magnesium Level 2.2 MG/DL Sodium Level 153 MEQ/L Potassium Level 3.8 MEQ/L Chloride Level 118 MEQ/L Carbon Dioxide Level 29.6 MEQ/L Anion Gap 5 MEQ/L Estimat Glomerular Filtration Rate 114 ML/MIN Vancomycin Level Trough 31.9 MCG/ML Imaging Last Impressions Chest X-Ray 02/10/17 Signed Impressions: Service Date/Time: Friday, February 10, 2017 09:49 - CONCLUSION: 1. Repositioning of the endotracheal tube, previously in the right mainstem bronchus and now appropriately positioned approximate 3.7 cm above the torri. 2. Persistent bibasilar airspace disease, medially on the right and more diffusely in the lower lung field on the left. 3. Possible associated left- sided effusion. Nura Cook MD Gastrostomy Tube Placement 02/05/17 Signed Impressions: Service Date/Time: January 16:47 - CONCLUSION: Uncomplicated gastrostomy tube placement as above. Jorje Josue MD Lower Extremity Ultrasound 02/04/17 Signed Impressions: Service Date/Time: Saturday, February 04, 2017 21:13 - CONCLUSION: 1. No evidence of deep venous thrombosis within the lower extremities. 2. Popliteal cyst on the left measuring 2.2 x 1.5 x 0.9 cm. Julian Mcmahan MD Head CT 02/04/17 Signed Impressions: Service Date/Time: Saturday, February 04, 2017 17:50 - CONCLUSION: 1. No acute intracranial abnormality. 2. Tiny fluid level within the right maxillary sinus. Julian Mcmahan MD CT Angiography 02/04/17 Signed Impressions: Service Date/Time: Saturday, February 04, 2017 17:54 - CONCLUSION: 1. No evidence of pulmonary embolism. 2. Bibasilar alveolar consolidations as well as scattered perihilar patchy opacities suggestive of probable pneumonia. Clinical correlation is recommended. 3. 1.7 cm right thyroid nodule. Julian Mcmahan MD Abdomen X-Ray 12/6/17 0000 Signed Impressions: Service Date/Time: January 05:52 - CONCLUSION: Interval placement of nasogastric tube with the tip in the left mainstem bronchus. Caesar Ramos MD Objective Remarks GENERAL: Patient is 71 yo intubated SKIN: Warm and dry. HEAD: Normocephalic. EYES: No scleral icterus. No injection or drainage. NECK: Supple, trachea midline. No JVD or lymphadenopathy. CARDIOVASCULAR: Tachycardic without murmurs, gallops, or rubs. RESPIRATORY: Breath sounds equal bilaterally. No accessory muscle use. GASTROINTESTINAL: Abdomen soft, non-tender, nondistended. MUSCULOSKELETAL: No cyanosis, or edema. Neuro: Intubated A/P Assessment and Plan 71-year-old female with: Encephalopathy Acute respiratory failure- intubated Probable recurrent aspiration pneumonia (prehospital) Failure to thrive Hyponatremia Chronic diarrhea History of esophageal stricture status post recent esophageal dilation History of colon cancer Lower extremity edema Plan: Neuro: Monitor neuro status. Head CT negative for bleed. On Precedex drip to facilitate with weaning trials, CV: Monitor HR and BP keep MAP>65mmHg Pulm: Continue with vent support keep sat >92% Bronchodilators. On solumedrol 40mg Q12, ICU vent bundle. CT chest with no evidence of PE and shows bibasilar infiltrates concerning for recurrent aspiration pneumonia Pulm is following- SBT as devante. GI/liver:s/p PEG tube placement by IR 02/05 Continue tube feeds-Jevity 1.5 @ 45ml/hr Renal/: Monitor renal function, I/O's, electrolytes replacement as needed. Will need K, Phos replacement today Renal signed off, change Free water 250ml Q6, add D5W@50ml/hr, monitor sodium level. ID: Continue abx( IV Cefepime, Azithromycin, Vanco) Monitor for signs of infections ( Fever, WBC) Follow up on sputum cx. ID is following Endocrine: SSI for glycemic control add Levemir 5u Q12 Heme-onc: Monitor CBC and coags. Prophylaxis: Pepcid/SCDs. Subcutaneous Lovenox. Palliative care is following Level 3 Varun Yusuf MD Feb 12, 2017 09:54
[2017-02-12] MEDS ORDERED: DEXTROSE 5% IN WATE 1000ML INJ 1,000 ML IV SCH (10:00)
--- NOTE | 2017-02-12 13:14 | HHI.IDPN ---
Subjective Subjective Remarks `pt is doing good co abdominal pain cont having diarrhea no fever plan to be extubated today Antibiotics ceepime azithro vanco Allergies: Coded Allergies: Penicillins (Verified Allergy, Unknown, 02/04/17) Objective . Vital Signs Date Time Temp Pulse Resp B/P (MAP) Pulse Ox O2 Delivery O2 Flow Rate FiO2 02/12/17 11:41 100 35 02/12/17 11:21 35 02/12/17 11:16 100 35 02/12/17 11:14 100 35 02/12/17 08:15 100 35 02/12/17 08:00 35 02/12/17 08:00 98.3 97 19 122/59 (80) 100 02/12/17 06:00 104 02/12/17 04:17 100 35 02/12/17 04:00 97.8 101 21 132/67 (88) 100 02/12/17 04:00 35 02/12/17 04:00 101 02/12/17 02:00 101 02/12/17 01:02 100 35 02/12/17 00:00 35 02/12/17 00:00 101 02/12/17 00:00 97.5 100 16 106/56 (73) 100 02/11/17 22:00 105 02/11/17 20:38 99 Ventilator 02/11/17 20:29 99 35 02/11/17 20:00 99 02/11/17 20:00 35 02/11/17 20:00 97.3 99 33 92/51 (65) 100 02/11/17 19:30 100 36 96/52 (67) 100 02/11/17 19:00 108 23 132/63 (86) 100 02/11/17 19:00 100 Mechanical Ventilator 35 02/11/17 18:30 104 21 113/58 (76) 100 02/11/17 18:00 105 21 114/58 (76) 100 02/11/17 18:00 105 02/11/17 17:30 105 20 128/61 (83) 100 02/11/17 17:00 101 19 139/61 (87) 100 02/11/17 16:30 107 21 127/64 (85) 100 02/11/17 16:12 99 35 02/11/17 16:00 109 02/11/17 16:00 35 02/11/17 16:00 98.4 109 22 132/63 (86) 98 02/11/17 15:30 107 19 124/59 (80) 99 02/11/17 15:00 106 21 129/60 (83) 99 02/11/17 14:30 107 26 136/65 (88) 100 02/11/17 14:00 104 02/11/17 14:00 104 16 122/59 (80) 100 02/11/17 13:30 104 17 113/58 (76) 100 . Laboratory Tests Test 02/10/17 14:03 02/11/17 05:58 02/12/17 06:00 White Blood Count 7.9 TH/MM3 8.5 TH/MM3 11.4 TH/MM3 Red Blood Count 2.59 MIL/MM3 2.89 MIL/MM3 2.61 MIL/MM3 Hemoglobin 7.8 GM/DL 8.5 GM/DL 7.8 GM/DL Hematocrit 23.9 % 26.0 % 23.7 % Mean Corpuscular Volume 92.2 FL 90.1 FL 90.7 FL Mean Corpuscular Hemoglobin 30.2 PG 29.6 PG 30.1 PG Mean Corpuscular Hemoglobin Concent 32.7 % 32.8 % 33.1 % Red Cell Distribution Width 16.3 % 16.1 % 16.2 % Platelet Count 105 TH/MM3 109 TH/MM3 89 TH/MM3 Mean Platelet Volume 7.5 FL 7.8 FL 8.6 FL Neutrophils (%) (Auto) 91.0 % 93.4 % 95.1 % Lymphocytes (%) (Auto) 3.5 % 3.0 % 2.3 % Monocytes (%) (Auto) 5.5 % 3.5 % 2.5 % Eosinophils (%) (Auto) 0.0 % 0.0 % 0.0 % Basophils (%) (Auto) 0.0 % 0.1 % 0.1 % Neutrophils # (Auto) 7.2 TH/MM3 7.9 TH/MM3 10.8 TH/MM3 Lymphocytes # (Auto) 0.3 TH/MM3 0.3 TH/MM3 0.3 TH/MM3 Monocytes # (Auto) 0.4 TH/MM3 0.3 TH/MM3 0.3 TH/MM3 Eosinophils # (Auto) 0.0 TH/MM3 0.0 TH/MM3 0.0 TH/MM3 Basophils # (Auto) 0.0 TH/MM3 0.0 TH/MM3 0.0 TH/MM3 CBC Comment DIFF FINAL DIFF FINAL AUTO DIFF Differential Comment AUTO DIFF CONFIRMED Laboratory Tests Test 02/11/17 05:58 02/12/17 06:00 Blood Urea Nitrogen 38 MG/DL 45 MG/DL Creatinine 0.65 MG/DL 0.53 MG/DL Random Glucose 206 MG/DL 172 MG/DL Calcium Level 7.9 MG/DL 8.0 MG/DL Phosphorus Level 1.7 MG/DL 3.4 MG/DL Magnesium Level 2.1 MG/DL 2.2 MG/DL Sodium Level 150 MEQ/L 153 MEQ/L Potassium Level 3.1 MEQ/L 3.8 MEQ/L Chloride Level 114 MEQ/L 118 MEQ/L Carbon Dioxide Level 30.7 MEQ/L 29.6 MEQ/L Anion Gap 5 MEQ/L 5 MEQ/L Estimat Glomerular Filtration Rate 90 ML/MIN 114 ML/MIN Microbiology Date/Time Source Procedure Growth Status 02/10/17 06:06 Sputum Endotracheal Gram Stain - Final Complete 02/10/17 06:06 Sputum Endotracheal Sputum Culture - Final HEAVY GROWTH NORMAL RESPIRATORY RADHA Complete Imaging Last Impressions Chest X-Ray 02/10/17 0000 Signed Impressions: Service Date/Time: Friday, February 10, 2017 09:49 - CONCLUSION: 1. Repositioning of the endotracheal tube, previously in the right mainstem bronchus and now appropriately positioned approximate 3.7 cm above the torri. 2. Persistent bibasilar airspace disease, medially on the right and more diffusely in the lower lung field on the left. 3. Possible associated left- sided effusion. Nura Cook MD Gastrostomy Tube Placement 02/05/17 0000 Signed Impressions: Service Date/Time: January 16:47 - CONCLUSION: Uncomplicated gastrostomy tube placement as above. Jorje Josue MD Lower Extremity Ultrasound 02/04/17 0000 Signed Impressions: Service Date/Time: Saturday, February 04, 2017 21:13 - CONCLUSION: 1. No evidence of deep venous thrombosis within the lower extremities. 2. Popliteal cyst on the left measuring 2.2 x 1.5 x 0.9 cm. Julian Mcmahan MD Head CT 02/04/17 0000 Signed Impressions: Service Date/Time: Saturday, February 04, 2017 17:50 - CONCLUSION: 1. No acute intracranial abnormality. 2. Tiny fluid level within the right maxillary sinus. Julian Mcmahan MD CT Angiography 02/04/17 0000 Signed Impressions: Service Date/Time: Saturday, February 04, 2017 17:54 - CONCLUSION: 1. No evidence of pulmonary embolism. 2. Bibasilar alveolar consolidations as well as scattered perihilar patchy opacities suggestive of probable pneumonia. Clinical correlation is recommended. 3. 1.7 cm right thyroid nodule. Julian Mcmahan MD Abdomen X-Ray 02/04/17 0000 Signed Impressions: Service Date/Time: January 05:52 - CONCLUSION: Interval placement of nasogastric tube with the tip in the left mainstem bronchus. Caesar Ramos MD Physical Exam CONSTITUTIONAL/GENERAL: This is a poorly nourished patient, in no apparent distress. TUBES/LINES/DRAINS: SKIN: No jaundice, rashes, or lesions. Skin temperature appropriate. Not diaphoretic. HEAD: Atraumatic. Normocephalic. EYES: Pupils equal and round and reactive. Extraocular motions intact. No scleral icterus. No injection or drainage. Fundi not examined. ENT: Hearing grossly normal. Nose without bleeding or purulent drainage. Throat without visible erythema, exudates, masses, or lesions. NECK: Trachea midline. Supple, nontender. CARDIOVASCULAR: Regular rate and rhythm without murmurs, gallops, or rubs. No JVD. Peripheral pulses symmetric. RESPIRATORY/CHEST: Symmetric, unlabored respirations. Clear to auscultation. Breath sounds equal bilaterally. No wheezes, rales, or rhonchi. GASTROINTESTINAL: Abdomen soft, quite tender diffusely to palpation espicially LLQ , nondistended. No hepato-splenomegaly, or palpable masses. No guarding. Bowel sounds present. Rectal tube in place with liquid stool GENITOURINARY: Without palpable bladder distension. MUSCULOSKELETAL: Extremities without clubbing, cyanosis, or edema. No joint tenderness or effusion noted. No calf tenderness. No mottling or clubbing. LYMPHATICS: No palpable cervical or supraclavicular adenopathy.Lightly sedated , easily arousable . Moves all extremities. PSYCHIATRIC: No obvious anxiety/depression. no apparent hallucinations or other psychotic thought process. Assessment & Plan Remarks PNA, culture neg Acute VDRF - improving; planned ot be extubated Diarrhea, abx associated - C.diff negative dc vancomycin dc levaquin cont azithromycin cont cefepime for now Ness Lopez MD Feb 12, 2017 13:14
--- NOTE | 2017-02-12 15:56 | HHI.HCPN ---
Reason for visit a. To assist with evaluation and management of symptoms including:shortness of breath, decreased oral intake, debility b. To assist medical decision maker(s) with: better understanding of current medical conditions; weighing benefits/burdens of medical treatment options; making medical treatment decisions. Subjective/Interval History Patient seen and examined in her room. Patient's granddaughter at bedside. Patient was just medically extubated approximately . Patient is sitting up in bed, awake, lethargic, minimal verbal response. Shallow respirations noted, mouth breathing and use of accessory muscles. Patient looks anxious, bedside RN medicating patient with xanax. Patient denied pain by shaking head. Followed simple commands with all 4 extremities with generalized weakness. Patient is afebrile. Patient is tachycardic HR 122. BP 155/68. O2 saturation 94 % on 2L NC. Laboratory workup today revealing WBC 11.4, hemoglobin 7.8, hematocrit 23.6, platelet count 89, sodium 153, potassium 3.8, BUN/creatinine 45 /0.53. C. difficile negative. No recent imaging. Patient receiving tube feeds via PEG, Jevity 1.5 at 45ML/hr. Asked patient with her granddaughter at bedside, if she would like to be reintubated if she has a difficult time with breathing again, patient was hesitant to answer and then shook her head for "no". Patient`s granddaughter who is her health care surrogate, held patient`s hand and said, "grandma if you are dying do you want them to help you and put that tube back in your mouth? ". Patient was hesitant to answer and later nodded head after her grand daughter stated that yes she would like to be reintubated to save her life. Patient's granddaughter at bedside. No changes in goals-remain aggressive. Case discussed with bedside RN. Case discussed with bedside RN and Dr. He. Family/friend interactions Patient`s grand daughter at bedside. . Advance Directives Living Will: Never completed Health Care Surrogate: Copy in medical record Advance Directive Specifics Date completed: December 19, 2016 . Health Care Surrogate(s): Granddaughter-[facility]- Connie Cotton- [phone] Alternate [facility]- Freddy Cotton [phone] . Objective Vital Signs Date Time Temp Pulse Resp B/P (MAP) Pulse Ox O2 Delivery O2 Flow Rate FiO2 02/12/17 14:40 98 Nasal Cannula 2.00 02/12/17 13:00 105 23 110/63 (79) 98 02/12/17 12:40 112 24 121/59 (79) 99 02/12/17 12:30 109 24 116/56 (76) 99 02/12/17 12:20 108 27 128/61 (83) 100 02/12/17 12:10 112 24 126/61 (82) 100 02/12/17 12:00 35 02/12/17 12:00 98.5 111 23 125/60 (81) 99 02/12/17 12:00 111 02/12/17 11:41 100 35 02/12/17 11:21 35 02/12/17 11:20 104 25 127/59 (81) 100 02/12/17 11:16 100 35 02/12/17 11:14 100 35 02/12/17 11:10 96 18 114/56 (75) 100 02/12/17 11:00 105 18 115/55 (75) 100 02/12/17 10:50 101 23 120/56 (77) 100 02/12/17 10:40 101 20 119/58 (78) 100 02/12/17 10:30 97 18 111/54 (73) 100 02/12/17 10:20 98 18 112/59 (76) 100 02/12/17 10:10 93 17 102/56 (71) 100 02/12/17 10:00 93 02/12/17 10:00 93 16 101/51 (68) 100 02/12/17 09:50 92 16 95/53 (67) 100 02/12/17 09:40 87 17 86/50 (62) 100 02/12/17 09:34 86 24 89/54 (66) 100 02/12/17 09:32 84 27 83/44 (57) 100 02/12/17 09:31 84 16 83/48 (60) 100 02/12/17 09:30 83 16 81/44 (56) 100 02/12/17 09:23 83 17 101/54 (70) 100 02/12/17 09:20 83 16 87/50 (62) 100 02/12/17 09:10 86 17 90/55 (67) 100 02/12/17 09:00 88 23 89/48 (62) 99 02/12/17 08:15 100 35 02/12/17 08:00 35 02/12/17 08:00 97 02/12/17 08:00 98.3 97 19 122/59 (80) 100 02/12/17 06:00 104 02/12/17 04:17 100 35 02/12/17 04:00 97.8 101 21 132/67 (88) 100 02/12/17 04:00 35 02/12/17 04:00 101 02/12/17 02:00 101 02/12/17 01:02 100 35 02/12/17 00:00 35 02/12/17 00:00 101 02/12/17 00:00 97.5 100 16 106/56 (73) 100 02/11/17 22:00 105 02/11/17 20:38 99 Ventilator 02/11/17 20:29 99 35 02/11/17 20:00 99 02/11/17 20:00 35 02/11/17 20:00 97.3 99 33 92/51 (65) 100 02/11/17 19:30 100 36 96/52 (67) 100 02/11/17 19:00 108 23 132/63 (86) 100 02/11/17 19:00 100 Mechanical Ventilator 35 02/11/17 18:30 104 21 113/58 (76) 100 02/11/17 18:00 105 21 114/58 (76) 100 02/11/17 18:00 105 02/11/17 17:30 105 20 128/61 (83) 100 02/11/17 17:00 101 19 139/61 (87) 100 02/11/17 16:30 107 21 127/64 (85) 100 02/11/17 16:12 99 35 02/11/17 16:00 109 02/11/17 16:00 35 02/11/17 16:00 98.4 109 22 132/63 (86) 98 02/11/17 15:30 107 19 124/59 (80) 99 Intake & Output 02/12/17 02/12/17 07:00 19:00 Intake Total 1196.5 ml Output Total 425 ml Balance 771.5 ml Intake IV Total 717.5 ml Tube Feeding 479 ml Output Urine Total 225 ml Stool Total 200 ml Physical Exam CONSTITUTIONAL/GENERAL: This is a cachectic, ill-looking elderly patient, appears older than stated age, Intubated. TUBES/LINES/DRAINS: ETT, Cabrera catheter, PIV, PEG tube, rectal bag SKIN: No jaundice. Ecchymoses on upper extremities-B2 skin tear to left elbow. Skin temperature appropriate. Not diaphoretic. HEAD: Atraumatic. Normocephalic. EYES: Pupils equal and round and reactive. Extraocular motions intact. No scleral icterus. No injection or drainage. Fundi not examined. ENT: Hearing grossly normal. Nose without bleeding or purulent drainage. NECK: Trachea midline. Supple, nontender. CARDIOVASCULAR: Regular rate and rhythm without murmurs, gallops, or rubs . No JVD. Peripheral pulses symmetric. Edema to bilateral upper extremities RESPIRATORY/CHEST: Symmetric, unlabored respirations. Rhonchi to auscultation. Diminished Breath sounds equal bilaterally. Extubated today. GASTROINTESTINAL: Abdomen soft, non-tender, nondistended. Bowel sounds present. PEG tube GENITOURINARY: Without palpable bladder distension. Cabrera catheter in place. MUSCULOSKELETAL: Extremities without clubbing. No joint tenderness or effusion noted. No calf tenderness. No mottling. Improved bilateral lower extremities edema. NEUROLOGICAL: Intubated on mechanical ventilation. Withdraws with all 4 extremities. PSYCHIATRIC: Unable to assess,now intubated on mechanical ventilation. . . Diagnostic Tests Laboratory Laboratory Tests Test 02/10/17 01:17 02/10/17 06:00 02/10/17 10:00 02/10/17 12:14 Blood Gas Puncture Site LT RADIAL RT RADIAL RT RADIAL Blood Gas Patient Temperature 98.6 98.6 98.6 Blood Gas HCO3 44 mmol/L (22-26) 38 mmol/L (22-26) 34 mmol/L (22-26) Blood Gas Base Excess 15.0 mmol/L (-2-2) 13.0 mmol/L (-2-2) 9.2 mmol/L (-2-2) Blood Gas Oxygen Saturation 97 % (90-100) 85 % (90-100) 95 % (90-100) Arterial Blood pH 7.14 (7.380-7.420) 7.44 (7.380-7.420) 7.39 (7.380-7.420) Arterial Blood Partial Pressure CO2 135 mmHg (38-42) 56 mmHg (38-42) 58 mmHg (38-42) Arterial Blood Partial Pressure O2 192 mmHg (61-120) 51 mmHg (61-120) 89 mmHg (61-120) Arterial Blood Oxygen Content 15.6 Vol % (12.0-20.0) 14.5 Vol % (12.0-20.0) 10.3 Vol % (12.0-20.0) Arterial Blood Carboxyhemoglobin 0.8 % (0-4) 1.2 % (0-4) 1.1 % (0-4) Arterial Blood Methemoglobin 1.1 % (0-2) 0.9 % (0-2) 1.1 % (0-2) Blood Gas Hemoglobin 11.1 G/DL (12.0-16.0) 12.2 G/DL (12.0-16.0) 7.6 G/DL (12.0-16.0) Oxygen Delivery Device BIPAP VENTILATOR PRVCAC/VT450/R16/P5 Blood Gas Ventilator Setting 15/6 Blood Gas Inspired Oxygen 100 % 50 % 50 % White Blood Count 7.9 TH/MM3 (4.0-11.0) Red Blood Count 2.59 MIL/MM3 (4.00-5.30) Hemoglobin 7.8 GM/DL (11.6-15.3) Hematocrit 23.8 % (35.0-46.0) Mean Corpuscular Volume 92.0 FL (80.0-100.0) Mean Corpuscular Hemoglobin 30.3 PG (27.0-34.0) Mean Corpuscular Hemoglobin Concent 33.0 % (32.0-36.0) Red Cell Distribution Width 15.8 % (11.6-17.2) Platelet Count 110 TH/MM3 (150-450) Mean Platelet Volume 7.8 FL (7.0-11.0) CBC Comment AUTO DIFF Differential Total Cells Counted 100 Neutrophils % (Manual) 43 % (16-70) Band Neutrophils % 53 % (0-6) Lymphocytes % 1 % (9-44) Monocytes % 3 % (0-8) Neutrophils # (Manual) 7.6 TH/MM3 (1.8-7.7) Differential Comment FINAL DIFF MANUAL Platelet Estimate LOW (NORMAL) Platelet Morphology Comment NORMAL (NORMAL) Red Cell Morphology Comment NORMAL (NORMAL) Blood Urea Nitrogen 43 MG/DL (7-18) Creatinine 0.84 MG/DL (0.50-1.00) Random Glucose 280 MG/DL (74-106) Calcium Level 8.1 MG/DL (8.5-10.1) Sodium Level 144 MEQ/L (136-145) Potassium Level 3.5 MEQ/L (3.5-5.1) Chloride Level 103 MEQ/L (98-107) Carbon Dioxide Level 33.9 MEQ/L (21.0-32.0) Anion Gap 7 MEQ/L (5-15) Estimat Glomerular Filtration Rate 67 ML/MIN (>89) Test 02/10/17 14:03 02/10/17 18:15 02/11/17 05:58 02/12/17 06:00 White Blood Count 7.9 TH/MM3 (4.0-11.0) 8.5 TH/MM3 (4.0-11.0) 11.4 TH/MM3 (4.0-11.0) Red Blood Count 2.59 MIL/MM3 (4.00-5.30) 2.89 MIL/MM3 (4.00-5.30) 2.61 MIL/MM3 (4.00-5.30) Hemoglobin 7.8 GM/DL (11.6-15.3) 8.5 GM/DL (11.6-15.3) 7.8 GM/DL (11.6-15.3) Hematocrit 23.9 % (35.0-46.0) 26.0 % (35.0-46.0) 23.7 % (35.0-46.0) Mean Corpuscular Volume 92.2 FL (80.0-100.0) 90.1 FL (80.0-100.0) 90.7 FL (80.0-100.0) Mean Corpuscular Hemoglobin 30.2 PG (27.0-34.0) 29.6 PG (27.0-34.0) 30.1 PG (27.0-34.0) Mean Corpuscular Hemoglobin Concent 32.7 % (32.0-36.0) 32.8 % (32.0-36.0) 33.1 % (32.0-36.0) Red Cell Distribution Width 16.3 % (11.6-17.2) 16.1 % (11.6-17.2) 16.2 % (11.6-17.2) Platelet Count 105 TH/MM3 (150-450) 109 TH/MM3 (150-450) 89 TH/MM3 (150-450) Mean Platelet Volume 7.5 FL (7.0-11.0) 7.8 FL (7.0-11.0) 8.6 FL (7.0-11.0) Neutrophils (%) (Auto) 91.0 % (16.0-70.0) 93.4 % (16.0-70.0) 95.1 % (16.0-70.0) Lymphocytes (%) (Auto) 3.5 % (9.0-44.0) 3.0 % (9.0-44.0) 2.3 % (9.0-44.0) Monocytes (%) (Auto) 5.5 % (0.0-8.0) 3.5 % (0.0-8.0) 2.5 % (0.0-8.0) Eosinophils (%) (Auto) 0.0 % (0.0-4.0) 0.0 % (0.0-4.0) 0.0 % (0.0-4.0) Basophils (%) (Auto) 0.0 % (0.0-2.0) 0.1 % (0.0-2.0) 0.1 % (0.0-2.0) Neutrophils # (Auto) 7.2 TH/MM3 (1.8-7.7) 7.9 TH/MM3 (1.8-7.7) 10.8 TH/MM3 (1.8-7.7) Lymphocytes # (Auto) 0.3 TH/MM3 (1.0-4.8) 0.3 TH/MM3 (1.0-4.8) 0.3 TH/MM3 (1.0-4.8) Monocytes # (Auto) 0.4 TH/MM3 (0-0.9) 0.3 TH/MM3 (0-0.9) 0.3 TH/MM3 (0-0.9) Eosinophils # (Auto) 0.0 TH/MM3 (0-0.4) 0.0 TH/MM3 (0-0.4) 0.0 TH/MM3 (0-0.4) Basophils # (Auto) 0.0 TH/MM3 (0-0.2) 0.0 TH/MM3 (0-0.2) 0.0 TH/MM3 (0-0.2) CBC Comment DIFF FINAL DIFF FINAL AUTO DIFF Differential Comment AUTO DIFF CONFIRMED Stool C. difficile Toxin (PCR) NEGATIVE (NEGATIVE) Stl C. difficile Toxin Epiderm 027 PRESUMPTIVE NEGATIVE Blood Urea Nitrogen 38 MG/DL (7-18) 45 MG/DL (7-18) Creatinine 0.65 MG/DL (0.50-1.00) 0.53 MG/DL (0.50-1.00) Random Glucose 206 MG/DL (74-106) 172 MG/DL (74-106) Calcium Level 7.9 MG/DL (8.5-10.1) 8.0 MG/DL (8.5-10.1) Phosphorus Level 1.7 MG/DL (2.5-4.9) 3.4 MG/DL (2.5-4.9) Magnesium Level 2.1 MG/DL (1.5-2.5) 2.2 MG/DL (1.5-2.5) Sodium Level 150 MEQ/L (136-145) 153 MEQ/L (136-145) Potassium Level 3.1 MEQ/L (3.5-5.1) 3.8 MEQ/L (3.5-5.1) Chloride Level 114 MEQ/L (98-107) 118 MEQ/L (98-107) Carbon Dioxide Level 30.7 MEQ/L (21.0-32.0) 29.6 MEQ/L (21.0-32.0) Anion Gap 5 MEQ/L (5-15) 5 MEQ/L (5-15) Estimat Glomerular Filtration Rate 90 ML/MIN (>89) 114 ML/MIN (>89) Vancomycin Level Trough 31.9 MCG/ML (5.0-10.0) Test 02/12/17 12:40 Blood Gas Puncture Site RT RADIAL Blood Gas Patient Temperature 98.6 Blood Gas HCO3 29 mmol/L (22-26) Blood Gas Base Excess 3.7 mmol/L (-2-2) Blood Gas Oxygen Saturation 96 % (90-100) Arterial Blood pH 7.34 (7.380-7.420) Arterial Blood Partial Pressure CO2 55 mmHg (38-42) Arterial Blood Partial Pressure O2 119 mmHg (61-120) Arterial Blood Oxygen Content 10.7 Vol % (12.0-20.0) Arterial Blood Carboxyhemoglobin 1.1 % (0-4) Arterial Blood Methemoglobin 1.1 % (0-2) Blood Gas Hemoglobin 7.7 G/DL (12.0-16.0) Oxygen Delivery Device VENT Blood Gas Ventilator Setting 12/05/39 Result Diagram: 02/12/17 0600 02/12/17 0600 Microbiology Microbiology Date/Time Source Procedure Growth Status 02/10/17 06:06 Sputum Endotracheal Gram Stain - Final Complete 02/10/17 06:06 Sputum Endotracheal Sputum Culture - Final HEAVY GROWTH NORMAL RESPIRATORY RADHA Complete Procedures 02/05/17 PEG tube placement 02/10/17- Intubated 02/12/17- Extubated . Assessment and Plan Disease Oriented Problem List: (1) Sepsis (2) Hyponatremia (3) Pneumonia (4) Hypoxia Symptom Scale: (1) Shortness of breath Comment: Multifactorial. Patient has had multiple hospitalizations for shortness of breath/pneumonia. Mild respiratory distress. Extubated today. . (2) Decreased oral intake Comment: History of dysphagia status post dilatation. Patient was currently on pured diet in [facility]. His lost approximately 25 pounds in 2 months. Now has a PEG Tube-receiving TF. . (3) Debility Comment: Progressive. Patient has had prolonged hospitalization in 4 different facilities since November 2016. Since November she has been hospitalized approximately 5 times. Patient was discharged recently into a snf facility. Patient has also lost weight significantly. Has not been able to participate in physical therapy due to her illness. Patient remains at high risk for deterioration if she continues to have shortness of breath, which will limit her participation in physical therapy. PT was consulted- recommending PT at rehab. . Pertinent Non-Medical Issues Psychosocial:Patient was born and raised in [place]. Patient still lives in [place] but came to [place] with her granddaughter to visit in late November, after being hospitalized in [place] and [place] for approximately 4 weeks. Patient was twice and once and her last a few years ago . She has 1 adult daughter, one grandchild and 2 great grandchildren. Patients is level of education is high school. 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 Patient has been living alone independently in [place] and helps take care of her elderly mother was 95 years old. Spiritual:[employer] of [employer]- have support from local jewish-Does not want visit from dental hygiene instructor services Legal:Patient has a designated HCS Ethical issues impacting care: None identified at this time. Important Contacts Granddaughter-[facility]- Connie Cotton- [phone] Alternate [facility]- Freddy Cotton [phone] Daughter- Flor Bennett [phone] . Prognosis Mrs Knapp is a 71 years old female with a past medical history of colon cancer, esophageal strictures, pneumonia and anxiety. Patient has had multiple hospitalizations for persistent pneumonia, hyponatremia and dysphagia. She was recently discharged from [facility] to a snf facility. Patient presented via EMS to [facility] ER on 02/04/17 after she was found slumped over, with cyanosis of limbs and in respiratory distress at [facility]. Patient`s O2 saturation were in the 80s. Given ongoing comorbidities and recent multiple hospitalizations, patient remains at high risk for complications, deterioration in decline. . Code Status: Full Code Plan PLAN: Legal decision maker: Patient does not appear to have clear understanding and insight of her clinical condition. Recommending joint decision making with her granddaughter Connie Cotton. Her alternate HCS- Freddy Cotton. Goals: 02/12/17 Remain aggressive- patient`s granddaughter at bedside. Asked patient with her granddaughter at bedside, if she would like to be reintubated if she has a difficult time with breathing again, patient was hesitant to answer and then shook her head for "no". Patient`s granddaughter who is her health care surrogate, held patient`s hand and said, "grandma if you are dying do you want them to help you and put that tube back in your mouth? ". Patient was hesitant to answer and later nodded head after her grand daughter stated that yes she would like to be reintubated to save her life. CODE STATUS: Full code SYMPTOMS: * Shortness of breath:Multifactorial. Patient has had multiple hospitalizations for shortness of breath/pneumonia. Chest x-ray revealed a space infiltrate in right base, with possible small effusion. Mild respiratory distress noted. Received antibiotics in the ER. Patient continues gets hypercapnic whenever she gets weaned off BiPAP. She is now intubated on mechanical ventilation. Patient extubated today to 2 L NC. * Decreased oral intake:History of dysphagia status post dilatation. Patient was currently on pured diet in [facility]. She lost approximately 25 pounds in 2 months. Recommending swallowing evaluation by speech therapy. Patient failed swallow evaluation today. GI consulted. NG tube attempted to be placed at bedside but unsuccessful. PEG placement by IR. BRADEN Jevity 1.5 infusing at 45 via PEG. Recommending assembler show motor consultation. . * Debility:Progressive. Patient has had prolonged hospitalization in 4 different facilities since November 2016. Since November she has been hospitalized approximately 5 times. Patient was discharged recently into a snf facility. Patient has also lost weight significantly. Has not been able to participate in physical therapy due to her illness. Patient remains at high risk for deterioration if she continues to have shortness of breath, which will limit her participation in physical therapy. Patient may benefit from physical therapy. Palliative care will continue to follow the patient during hospital course as condition evolves, to assist patient/decision-maker with understanding of their medical conditions, weighing benefits/burdens of treatment options, for clarification of goals of treatment. Additionally will assist with any symptoms of palliative concern. . Attestation To help prompt me to consider important information that might be impacting today's encounter and assessment, information from prior notes written by myself or my colleagues may have been "brought forward" into today's note. My signature on this note, however, is an attestation that I personally performed the exam, history, and/or decision-making noted today, and, unless otherwise indicated, the interactions with patient, family, and staff as well as the review of records all occurred today. I also attest that the listed assessment and stated plan reflect my best clinical judgment today based on the combination of historical information, prior notes, and today's exam/ interactions. When time spent is documented, it refers only to time spent today by the signer, or if indicated, combined time spent today by collaborating physician/nurse practitioner. . Julianne More Feb 12, 2017 15:56
[2017-02-12] MEDS ORDERED: ETOMIDATE 40 MG/20 ML VIAL ONE (17:10)
[2017-02-12] MEDS ORDERED: PROPOFOL 500 MG/50 ML INJ 50 ML ONE (17:12)
[2017-02-12] MEDS ORDERED: fentaNYL DRIP 250 ML IV PRN (17:30)
[2017-02-12] MEDS: fentaNYL DRIP 250 ML IV PRN (17:58)
--- NOTE | 2017-02-12 17:58 | RADRPT ---
EXAM DATE/TIME: 02/12/2017 17:34 [facility] COMPARISON: CHEST SINGLE AP, February 10, 2017, 9:49. INDICATIONS : Post intubation. MEDICAL HISTORY : Hypertension. SURGICAL HISTORY : None. ENCOUNTER: Subsequent ACUITY: 1 day PAIN SCORE: Non-responsive. LOCATION: Bilateral chest FINDINGS: Tip of recently placed endotracheal tube is within the right mainstem bronchus. Significant airspace disease is seen in the left lung. A Mild airspace disease remains evident in the left base. Heart and mediastinal structures are stable. CONCLUSION: Endotracheal tube is in the right mainstem bronchus and needs to be withdrawn. Increasing left lung airspace disease. Michoacano Myers MD on February 12, 2017 at 17:51 Board Certified Radiologist. This report was verified electronically.
[2017-02-12] MEDS: AZITHROMYCIN INJ 500 MG in SODIUM CHLOR 0.9% 250 ML INJ 250 ML IV SCH (18:58)
--- NOTE | 2017-02-12 19:31 | RADRPT ---
EXAM DATE/TIME: 02/12/2017 18:13 [facility] COMPARISON: No previous studies available for comparison. INDICATIONS : Evaluate ET tube placement MEDICAL HISTORY : Hypertension. SURGICAL HISTORY : None. ENCOUNTER: Subsequent ACUITY: 1 day PAIN SCORE: Non-responsive. LOCATION: chest FINDINGS: Endotracheal tube tip is again near the torri within the proximal right mainstem bronchus. It should be withdrawn about 2 cm. Basilar airspace disease and pleural effusion, left greater than right is s imilar to February 12 exam from earlier today. No pneumothorax. CONCLUSION: 1. Endotracheal tube tip remains in proximal right mainstem bronchus and should be withdrawn about 2- 3 cm. 2. There is basilar airspace disease, left greater than right with small effusions. Candido Garay MD on February 12, 2017 at 19:28 Board Certified Radiologist. This report was verified electronically.
[2017-02-12] MEDS: ENOXAPARIN SODIUM 40 MG/0.4 ML SYRINGE SQ SCH (20:29)
[2017-02-13] VITALS (21 sets, daily range): BP systolic 93–121; BP diastolic 50–75; PULSE 87–98; RESP 16; TEMP 98–100.3; O2SAT 97–100
[2017-02-13] MEDS: INSULIN NovoLIN REGULAR SUPPLEMENTAL SCALE SQ SCH ×6 (00:04→20:00)
[2017-02-13] MEDS: CHLORHEXIDINE GLUCONATE 2 % 1 PACK (2 CLOTHS) TOP SCH (00:04)
[2017-02-13] MEDS: RESP: ALBUTEROL 2.5 MG/IPRATROPIUM 0.5 MG NEB (SCH) NEB ×6 (03:12→23:16)
[2017-02-13] MEDS: CEFEPIME INJ 2,000 MG in SODIUM CHLORIDE 0.9% INJ 100 ML IV SCH ×2 (05:23→17:46)
[2017-02-13] MEDS: FREE WATER G-TUBE SCH ×4 (05:23→17:46)
[2017-02-13 07:08] LABS: AUTOMATED NEUTROPHIL # 9.4 TH/MM3 (1.8-7.7); BASOPHIL % 0.1 % (0.0-2.0); LYMPH % 2.9 % (9.0-44.0); LYMPHOCYTE # 0.3 TH/MM3 (1.0-4.8); MEAN CELL VOLUME 95.6 FL (80.0-100.0); MEAN CORPUSCULAR HEMOGLOBIN 31.5 PG (27.0-34.0); MONO % 2.4 % (0.0-8.0); MONOCYTE # 0.2 TH/MM3 (0-0.9); NEUT % 94.6 % (16.0-70.0); PLATELET COUNT 88 TH/MM3 (150-450); RED BLOOD COUNT 2.17 MIL/MM3 (4.00-5.30); RED CELL DISTRIBUTION WIDTH 16.5 % (11.6-17.2)
[2017-02-13 07:34] LABS: BICARBONATE 29.6 MEQ/L (21.0-32.0); CALCIUM 7.7 MG/DL (8.5-10.1); CREATININE 0.52 MG/DL (0.50-1.00)
[2017-02-13 07:36] LABS: HEMOGLOBIN 6.8 GM/DL (11.6-15.3)
[2017-02-13 07:37] LABS: HEMATOCRIT 20.8 % (35.0-46.0)
[2017-02-13] MEDS: PANTOPRAZOLE SODIUM 40 MG VIAL IV PUSH SCH (07:56)
[2017-02-13] MEDS: methylPREDNISolone SOD SUCC 40 MG/1 ML VIAL IV PUSH SCH ×2 (07:57→20:19)
[2017-02-13] MEDS: INSULIN DETEMIR 100 UNITS/ML VIAL SQ SCH ×2 (07:57→20:19)
[2017-02-13] MEDS: SODIUM CHLORIDE 0.9% FLUSH 10 ML FLUSH IV FLUSH SCH ×2 (07:57→20:19)
[2017-02-13] MEDS: CHLORHEXIDINE 0.12% (ORAL KIT) 15 ML CUP MT SCH ×2 (07:57→20:19)
[2017-02-13 08:26] LABS: ACANTHOCYTES OCC (NORMAL); BANDS 10 % (0-6); LYMPHOCYTES 3 % (9-44); METAMYELOCYTES 1 % (0-1); MONOCYTES 1 % (0-8); NEUTROPHIL # MANUAL DIFF 9.6 TH/MM3 (1.8-7.7); POLYS (SEG NEUTROPHILS) 85 % (16-70); TOXIC GRANULATION 2+ (NORMAL)
[2017-02-13 08:27] LABS: OVALOCYTES 1+ (NORMAL)
--- NOTE | 2017-02-13 09:14 | HHI.CCPN ---
Subjective Remarks/Hospital Course 02/04: 71-year-old female with a medical history significant for colon cancer in 2003 for which she underwent partial colon resection and chemotherapy, esophageal stricture with significant weight loss due to poor by mouth intake for which she was hospitalized in [place] in November 2016 for 2 weeks treated for pneumonia and subsequently evaluated for dysphagia and was found to have a sufficient stricture for which she was transferred to [facility] in [place] and underwent esophageal dilatation and was subsequently discharged 2 weeks later on a pured diet. Patient moved to [place] with her granddaughter and a few beats VAC was admitted to [facility] for worsening shortness of breath and was diagnosed with a pneumonia, hyponatremia. She was treated with antibiotics and subsequently discharged home however the following day had to be readmitted at [facility] for unresolved shortness of breath where she was hospitalized for a week and subsequently discharged to custodial 3 days prior to this admission. Patient's by mouth intake has been poor since her discharge 3 days back according to her granddaughter as the pured diet at the custodial is to take. Patient was found to have altered mental status today and was found slumped to one side with poor respirations. EMS was called and patient was noted to have O2 sats in the 60s. She was transported to the emergency room where she was placed on BiPAP for respiratory distress with hypoxic respiratory failure. She was also noted to be hypertensive on arrival with systolic blood pressure in the 200s. Patient was also found to have a sodium of 118. I was contacted by ER physician and accepted patient for admission to the ICU. When I evaluated the patient in the ER she was on BiPAP with full facemask. History was obtained by discussion with patient's granddaughter was at the bedside. Patient was much more awake at this time and trying to communicate however in view of BiPAP requirement was difficult to communicate with. She denied any chest pain at the time. Patient has chronic diarrhea since her colon surgery in 2003. Per the granddaughter she was doing well till about 3 months ago when she started having significant weight loss and poor by mouth intake possibly related to esophageal stricture and the fact that she was taking care of her sick family member at home. She has been advised a PEG tube per the granddaughter because of her poor nutritional status and poor by mouth intake. She has had problems with hyponatremia off and on for a while. Patient's granddaughter is very concerned about her poor nutritional status. 02/05: Tolerating nasal cannula. Underwent PEG tube placement by IR today. Sodium 122. 02/06 No events overnight. s/p PEG tube placement yesterday. Sodium level 131 this morning 02/07 No events overnight. On 50% VM with good sats. 02/08 No events overnight. Afebrile . Off BIPAP. 02/09 Patient is on BIPAP 02/03 with 45% FIO2> Afebrile. 02/10 Patient was intubated early this morning for acute hypercapnic resp acidosis. Afebrile. 02/11 No events overnight. Patient remains intubated. Afebrile. 02/12 Patient remains intubated and on Precedex drip for sedation. Afebrile. 02/13 Patient was extubated yesterday and reintubated late afternoon for acute resp acidosis. afebrile. Objective Vital Signs Date Time Temp Pulse Resp B/P (MAP) Pulse Ox O2 Delivery O2 Flow Rate FiO2 02/13/17 08:31 100 35 02/13/17 08:00 98 02/13/17 07:53 98.0 16 121/53 (75) 02/12/17 14:40 Nasal Cannula 2.00 Intake and Output 02/13/17 02/13/17 02/14/17 08:00 16:00 00:00 Intake Total 2106.7 ml Output Total 465 ml Balance 1641.7 ml Result Diagram: 02/13/17 0600 02/13/17 0600 Other Results Laboratory Tests Test 02/12/17 12:40 02/13/17 06:00 Blood Gas Puncture Site RT RADIAL Blood Gas Patient Temperature 98.6 Blood Gas HCO3 29 mmol/L Blood Gas Base Excess 3.7 mmol/L Blood Gas Oxygen Saturation 96 % Arterial Blood pH 7.34 Arterial Blood Partial Pressure CO2 55 mmHg Arterial Blood Partial Pressure O2 119 mmHg Arterial Blood Oxygen Content 10.7 Vol % Arterial Blood Carboxyhemoglobin 1.1 % Arterial Blood Methemoglobin 1.1 % Blood Gas Hemoglobin 7.7 G/DL Oxygen Delivery Device VENT Blood Gas Ventilator Setting 12/05/39 White Blood Count 10.0 TH/MM3 Red Blood Count 2.17 MIL/MM3 Hemoglobin 6.8 GM/DL Hematocrit 20.8 % Mean Corpuscular Volume 95.6 FL Mean Corpuscular Hemoglobin 31.5 PG Mean Corpuscular Hemoglobin Concent 33.0 % Red Cell Distribution Width 16.5 % Platelet Count 88 TH/MM3 Mean Platelet Volume 8.0 FL Neutrophils (%) (Auto) 94.6 % Lymphocytes (%) (Auto) 2.9 % Monocytes (%) (Auto) 2.4 % Eosinophils (%) (Auto) 0.0 % Basophils (%) (Auto) 0.1 % Neutrophils # (Auto) 9.4 TH/MM3 Lymphocytes # (Auto) 0.3 TH/MM3 Monocytes # (Auto) 0.2 TH/MM3 Eosinophils # (Auto) 0.0 TH/MM3 Basophils # (Auto) 0.0 TH/MM3 CBC Comment AUTO DIFF Differential Total Cells Counted 100 Neutrophils % (Manual) 85 % Band Neutrophils % 10 % Lymphocytes % 3 % Monocytes % 1 % Neutrophils # (Manual) 9.6 TH/MM3 Metamyelocytes 1 % Differential Comment FINAL DIFF MANUAL Toxic Granulation 2+ Platelet Estimate LOW Platelet Morphology Comment NORMAL Ovalocytes 1+ Acanthocytes OCC Blood Urea Nitrogen 45 MG/DL Creatinine 0.52 MG/DL Random Glucose 185 MG/DL Calcium Level 7.7 MG/DL Sodium Level 149 MEQ/L Potassium Level 3.8 MEQ/L Chloride Level 115 MEQ/L Carbon Dioxide Level 29.6 MEQ/L Anion Gap 4 MEQ/L Estimat Glomerular Filtration Rate 116 ML/MIN Imaging Last Impressions Chest X-Ray 02/12/17 0000 Signed Impressions: Service Date/Time: January 18:13 - CONCLUSION: 1. Endotracheal tube tip remains in proximal right mainstem bronchus and should be withdrawn about 2- 3 cm. 2. There is basilar airspace disease, left greater than right with small effusions. Candido Garay MD Gastrostomy Tube Placement 02/05/17 0000 Signed Impressions: Service Date/Time: January 16:47 - CONCLUSION: Uncomplicated gastrostomy tube placement as above. Jorje Josue MD Lower Extremity Ultrasound 02/04/17 0000 Signed Impressions: Service Date/Time: Saturday, February 04, 2017 21:13 - CONCLUSION: 1. No evidence of deep venous thrombosis within the lower extremities. 2. Popliteal cyst on the left measuring 2.2 x 1.5 x 0.9 cm. Julian Mcmahan MD Head CT 02/04/17 0000 Signed Impressions: Service Date/Time: Saturday, February 04, 2017 17:50 - CONCLUSION: 1. No acute intracranial abnormality. 2. Tiny fluid level within the right maxillary sinus. Julian Mcmahan MD CT Angiography 02/04/17 0000 Signed Impressions: Service Date/Time: Saturday, February 04, 2017 17:54 - CONCLUSION: 1. No evidence of pulmonary embolism. 2. Bibasilar alveolar consolidations as well as scattered perihilar patchy opacities suggestive of probable pneumonia. Clinical correlation is recommended. 3. 1.7 cm right thyroid nodule. Julian Mcmahan MD Abdomen X-Ray 02/04/17 0000 Signed Impressions: Service Date/Time: January 05:52 - CONCLUSION: Interval placement of nasogastric tube with the tip in the left mainstem bronchus. Caesar Ramos MD Objective Remarks GENERAL: Patient is 71 yo intubated SKIN: Warm and dry. HEAD: Normocephalic. EYES: No scleral icterus. No injection or drainage. NECK: Supple, trachea midline. No JVD or lymphadenopathy. CARDIOVASCULAR: Tachycardic without murmurs, gallops, or rubs. RESPIRATORY: Breath sounds equal bilaterally. No accessory muscle use. GASTROINTESTINAL: Abdomen soft, non-tender, nondistended. MUSCULOSKELETAL: No cyanosis, or edema. Neuro: Intubated A/P Assessment and Plan 71-year-old female with: Encephalopathy Acute respiratory failure- intubated Probable recurrent aspiration pneumonia (prehospital) Failure to thrive Hyponatremia Chronic diarrhea History of esophageal stricture status post recent esophageal dilation History of colon cancer Lower extremity edema Plan: Neuro: Monitor neuro status. Head CT negative for bleed. Fentanyl infusion if needed for sedation. Precedex drip to facilitate with weaning trials, CV: Monitor HR and BP keep MAP>65mmHg Pulm: Continue with vent support keep sat >92% Bronchodilators. On solumedrol 40mg Q12, ICU vent bundle. CT chest with no evidence of PE and shows bibasilar infiltrates concerning for recurrent aspiration pneumonia Pulm is following- . Check CXR SBT as devante. GI/liver:s/p PEG tube placement by IR 02/05 Continue tube feeds-Jevity 1.5 @ 45ml/hr Renal/: Monitor renal function, I/O's, electrolytes replacement as needed. On Free water 250ml Q6, monitor sodium level. Diurese with Lasix 40mg x1, d/c IVF ID: Continue abx( IV Cefepime, Azithromycin) Monitor for signs of infections ( Fever, WBC) ID is following. Sputum cx: Normal resp roxann Endocrine: SSI for glycemic control, Levemir 5u Q12 Heme-onc: Monitor CBC, transfuse 1unot PRBC Prophylaxis: Pepcid/SCDs. Subcutaneous Lovenox. Palliative care is following Level 3 Varun Yusuf MD Feb 13, 2017 09:14
[2017-02-13] MEDS ORDERED: FUROSEMIDE 40 MG/4 ML VIAL IV PUSH ONE (09:15)
--- NOTE | 2017-02-13 10:37 | RADRPT ---
EXAM DATE/TIME: 02/13/2017 09:59 [facility] COMPARISON: CHEST SINGLE AP, February 12, 2017, 18:13. INDICATIONS : Ventillator dependent respiratory failure MEDICAL HISTORY : Hypertension. SURGICAL HISTORY : None. ENCOUNTER: Subsequent ACUITY: 1 week PAIN SCORE: Non-responsive. LOCATION: Bilateral chest FINDINGS: The tip in the endotracheal tube is now approximately 1 cm above the torri. There continues to be bi lateral pulmonary infiltrates, left greater than right. Infiltrates are about the same or slightly im proved. No evidence of pneumothorax. Heart size is stable. The bony structures are stable. CONCLUSION: No significant change in the bilateral pulmonary infiltrates, left greater than right. Brett Persaud MD on February 13, 2017 at 10:34 Board Certified Radiologist. This report was verified electronically.
--- NOTE | 2017-02-13 14:10 | HHI.HCPN ---
Reason for visit a. To assist with evaluation and management of symptoms including:shortness of breath, decreased oral intake, debility b. To assist medical decision maker(s) with: better understanding of current medical conditions; weighing benefits/burdens of medical treatment options; making medical treatment decisions. Subjective/Interval History Patient seen and examined in her room. Patient was reintubated yesterday for acute respiratory acidosis. Patient currently on CPAP 07/14/35%. Chest x-ray revealing no significant change in the bilateral pulmonary infiltrates, left greater than right. Patient on a Precedex infusion at 0.2 g per KG per hour. Patient withdraws to noxious stimulation with all 4 extremities. TF Jevity 1.5 infusing via PEG at 45ml/hr. Patient tolerating well. Rectal bag in place with liquid stool. Last BM today. Laboratory workup revealing WBC 10.0 , hemoglobin 6.8, hematocrit 20.8, platelet count is 88, sodium 119, potassium 3.8, BUN/creatinine 45/0.52. 1 uPRBC ordered. Case discussed with Dr. Yusuf. Telephone conversation with patient's granddaughter, Connie who is patient`s health care surrogate. Updated on medical status, already aware that patient was reintubated. Explained to patient's granddaughter that patient may need tracheostomy if she is unable to be medically extubated. Connie verbalized that she wants to honor patient`s wishes to do everything possible to keep her alive. She explains that she has talked to her grandmother about this before. She went ahead to mention that patient`s sister is living with a tracheostomy. She said she is not yet ready to, "let go" of her grandmother. Connie wants patient to have a tracheostomy if she cannot be medically extubated after a few days and she mentioned that as long as her grandmother still has ,"her mind" she will continue with aggressive treatment. Family/friend interactions Telephone conversation with patient`s granddaughter. . Advance Directives Living Will: Never completed Health Care Surrogate: Copy in medical record Advance Directive Specifics Date completed: December 19, 2016 . Health Care Surrogate(s): Granddaughter-[facility]- Connie Chayito De La Vega [phone] Alternate [facility]- Freddy Cotton [phone] . Significant change in goals: No changes in goals- Remain aggressive. . Objective Vital Signs Date Time Temp Pulse Resp B/P (MAP) Pulse Ox O2 Delivery O2 Flow Rate FiO2 02/13/17 12:00 98.4 97 16 97/51 (66) 99 02/13/17 12:00 96 02/13/17 12:00 40 02/13/17 11:38 100 35 02/13/17 10:00 98 02/13/17 08:31 100 35 02/13/17 08:00 98.0 91 16 121/53 (75) 100 02/13/17 08:00 98 02/13/17 08:00 40 02/13/17 07:53 98.0 91 16 121/53 (75) 100 02/13/17 06:00 98 02/13/17 04:00 40 02/13/17 04:00 98.8 89 16 99/53 (68) 100 02/13/17 04:00 89 02/13/17 03:29 100 40 02/13/17 02:00 90 02/13/17 00:41 100 40 02/13/17 00:00 95 02/13/17 00:00 40 02/13/17 00:00 98.7 95 16 100/54 (69) 100 02/12/17 22:00 100 02/12/17 20:13 100 40 02/12/17 20:00 97.9 98 16 97/47 (64) 100 02/12/17 20:00 40 02/12/17 20:00 98 02/12/17 19:15 91 16 78/46 (57) 100 02/12/17 19:00 90 16 77/49 (58) 100 02/12/17 18:30 95 16 98/44 (62) 100 02/12/17 18:01 102 41 105/69 (81) 100 02/12/17 18:00 102 02/12/17 18:00 102 34 100 02/12/17 17:37 93 16 78/42 (54) 100 02/12/17 17:31 103 24 104/46 (65) 100 02/12/17 17:30 40 02/12/17 17:00 123 49 150/68 (95) 96 02/12/17 16:30 123 25 162/72 (102) 96 12/14/17 16:00 123 02/12/17 16:00 98.6 123 27 155/73 (100) 96 02/12/17 15:30 122 31 155/68 (97) 94 02/12/17 15:00 116 29 150/82 (104) 100 02/12/17 14:40 98 Nasal Cannula 2.00 02/12/17 14:31 111 31 146/80 (102) 100 02/12/17 14:00 111 02/12/17 14:00 111 25 124/64 (84) 100 Intake & Output 02/13/17 02/13/17 07:00 19:00 Intake Total 2456.7 ml 104 ml Output Total 465 ml Balance 1991.7 ml 104 ml Intake IV Total 1370.7 ml 104 ml Tube Feeding 586 ml Tube Irrigant 500 ml Output Urine Total 365 ml Stool Total 100 ml # Bowel Movements 1 Physical Exam CONSTITUTIONAL/GENERAL: This is a cachectic, ill-looking elderly patient, appears older than stated age, Intubated. TUBES/LINES/DRAINS: ETT, Cabrera catheter, PIV, PEG tube, rectal bag SKIN: No jaundice. Ecchymoses on upper extremities- skin tear to left elbow. Skin temperature appropriate. Not diaphoretic. HEAD: Atraumatic. Normocephalic. EYES: Pupils equal and round and reactive. Extraocular motions intact. No scleral icterus. No injection or drainage. Fundi not examined. ENT: Hearing grossly normal. Nose without bleeding or purulent drainage. Moist oral mucosa. NECK: Trachea midline. Supple, nontender. CARDIOVASCULAR: Regular rate and rhythm without murmurs, gallops, or rubs . No JVD. Peripheral pulses symmetric. Edema to bilateral upper extremities RESPIRATORY/CHEST: Symmetric, unlabored respirations. Rhonchi to auscultation. Diminished Breath sounds equal bilaterally. Currently on CPAP Trial. GASTROINTESTINAL: Abdomen soft, non-tender, nondistended. Bowel sounds present. PEG tube, Jevity 1.5 infusing at goal rate. GENITOURINARY: Without palpable bladder distension. Cabrera catheter in place. MUSCULOSKELETAL: Extremities without clubbing. No joint tenderness or effusion noted. No calf tenderness. No mottling. Improved bilateral lower extremities edema. NEUROLOGICAL: Intubated on mechanical ventilation. Withdraws with all 4 extremities. PSYCHIATRIC: Unable to assess,now intubated on mechanical ventilation. . . Diagnostic Tests Laboratory Laboratory Tests Test 02/10/17 14:03 02/10/17 18:15 02/11/17 05:58 02/12/17 06:00 White Blood Count 7.9 TH/MM3 (4.0-11.0) 8.5 TH/MM3 (4.0-11.0) 11.4 TH/MM3 (4.0-11.0) Red Blood Count 2.59 MIL/MM3 (4.00-5.30) 2.89 MIL/MM3 (4.00-5.30) 2.61 MIL/MM3 (4.00-5.30) Hemoglobin 7.8 GM/DL (11.6-15.3) 8.5 GM/DL (11.6-15.3) 7.8 GM/DL (11.6-15.3) Hematocrit 23.9 % (35.0-46.0) 26.0 % (35.0-46.0) 23.7 % (35.0-46.0) Mean Corpuscular Volume 92.2 FL (80.0-100.0) 90.1 FL (80.0-100.0) 90.7 FL (80.0-100.0) Mean Corpuscular Hemoglobin 30.2 PG (27.0-34.0) 29.6 PG (27.0-34.0) 30.1 PG (27.0-34.0) Mean Corpuscular Hemoglobin Concent 32.7 % (32.0-36.0) 32.8 % (32.0-36.0) 33.1 % (32.0-36.0) Red Cell Distribution Width 16.3 % (11.6-17.2) 16.1 % (11.6-17.2) 16.2 % (11.6-17.2) Platelet Count 105 TH/MM3 (150-450) 109 TH/MM3 (150-450) 89 TH/MM3 (150-450) Mean Platelet Volume 7.5 FL (7.0-11.0) 7.8 FL (7.0-11.0) 8.6 FL (7.0-11.0) Neutrophils (%) (Auto) 91.0 % (16.0-70.0) 93.4 % (16.0-70.0) 95.1 % (16.0-70.0) Lymphocytes (%) (Auto) 3.5 % (9.0-44.0) 3.0 % (9.0-44.0) 2.3 % (9.0-44.0) Monocytes (%) (Auto) 5.5 % (0.0-8.0) 3.5 % (0.0-8.0) 2.5 % (0.0-8.0) Eosinophils (%) (Auto) 0.0 % (0.0-4.0) 0.0 % (0.0-4.0) 0.0 % (0.0-4.0) Basophils (%) (Auto) 0.0 % (0.0-2.0) 0.1 % (0.0-2.0) 0.1 % (0.0-2.0) Neutrophils # (Auto) 7.2 TH/MM3 (1.8-7.7) 7.9 TH/MM3 (1.8-7.7) 10.8 TH/MM3 (1.8-7.7) Lymphocytes # (Auto) 0.3 TH/MM3 (1.0-4.8) 0.3 TH/MM3 (1.0-4.8) 0.3 TH/MM3 (1.0-4.8) Monocytes # (Auto) 0.4 TH/MM3 (0-0.9) 0.3 TH/MM3 (0-0.9) 0.3 TH/MM3 (0-0.9) Eosinophils # (Auto) 0.0 TH/MM3 (0-0.4) 0.0 TH/MM3 (0-0.4) 0.0 TH/MM3 (0-0.4) Basophils # (Auto) 0.0 TH/MM3 (0-0.2) 0.0 TH/MM3 (0-0.2) 0.0 TH/MM3 (0-0.2) CBC Comment DIFF FINAL DIFF FINAL AUTO DIFF Differential Comment AUTO DIFF CONFIRMED Stool C. difficile Toxin (PCR) NEGATIVE (NEGATIVE) Stl C. difficile Toxin Epiderm 027 PRESUMPTIVE NEGATIVE Blood Urea Nitrogen 38 MG/DL (7-18) 45 MG/DL (7-18) Creatinine 0.65 MG/DL (0.50-1.00) 0.53 MG/DL (0.50-1.00) Random Glucose 206 MG/DL (74-106) 172 MG/DL (74-106) Calcium Level 7.9 MG/DL (8.5-10.1) 8.0 MG/DL (8.5-10.1) Phosphorus Level 1.7 MG/DL (2.5-4.9) 3.4 MG/DL (2.5-4.9) Magnesium Level 2.1 MG/DL (1.5-2.5) 2.2 MG/DL (1.5-2.5) Sodium Level 150 MEQ/L (136-145) 153 MEQ/L (136-145) Potassium Level 3.1 MEQ/L (3.5-5.1) 3.8 MEQ/L (3.5-5.1) Chloride Level 114 MEQ/L (98-107) 118 MEQ/L (98-107) Carbon Dioxide Level 30.7 MEQ/L (21.0-32.0) 29.6 MEQ/L (21.0-32.0) Anion Gap 5 MEQ/L (5-15) 5 MEQ/L (5-15) Estimat Glomerular Filtration Rate 90 ML/MIN (>89) 114 ML/MIN (>89) Vancomycin Level Trough 31.9 MCG/ML (5.0-10.0) Test 02/12/17 12:40 02/13/17 06:00 02/13/17 12:10 Blood Gas Puncture Site RT RADIAL RT RADIAL Blood Gas Patient Temperature 98.6 98.6 Blood Gas HCO3 29 mmol/L (22-26) 30 mmol/L (22-26) Blood Gas Base Excess 3.7 mmol/L (-2-2) 5.6 mmol/L (-2-2) Blood Gas Oxygen Saturation 96 % (90-100) 94 % (90-100) Arterial Blood pH 7.34 (7.380-7.420) 7.45 (7.380-7.420) Arterial Blood Partial Pressure CO2 55 mmHg (38-42) 43 mmHg (38-42) Arterial Blood Partial Pressure O2 119 mmHg (61-120) 79 mmHg (61-120) Arterial Blood Oxygen Content 10.7 Vol % (12.0-20.0) 11.0 Vol % (12.0-20.0) Arterial Blood Carboxyhemoglobin 1.1 % (0-4) 1.1 % (0-4) Arterial Blood Methemoglobin 1.1 % (0-2) 1.1 % (0-2) Blood Gas Hemoglobin 7.7 G/DL (12.0-16.0) 8.2 G/DL (12.0-16.0) Oxygen Delivery Device VENT VENTILATOR Blood Gas Ventilator Setting 10/5/40 CPAP+5/PS+15 White Blood Count 10.0 TH/MM3 (4.0-11.0) Red Blood Count 2.17 MIL/MM3 (4.00-5.30) Hemoglobin 6.8 GM/DL (11.6-15.3) Hematocrit 20.8 % (35.0-46.0) Mean Corpuscular Volume 95.6 FL (80.0-100.0) Mean Corpuscular Hemoglobin 31.5 PG (27.0-34.0) Mean Corpuscular Hemoglobin Concent 33.0 % (32.0-36.0) Red Cell Distribution Width 16.5 % (11.6-17.2) Platelet Count 88 TH/MM3 (150-450) Mean Platelet Volume 8.0 FL (7.0-11.0) Neutrophils (%) (Auto) 94.6 % (16.0-70.0) Lymphocytes (%) (Auto) 2.9 % (9.0-44.0) Monocytes (%) (Auto) 2.4 % (0.0-8.0) Eosinophils (%) (Auto) 0.0 % (0.0-4.0) Basophils (%) (Auto) 0.1 % (0.0-2.0) Neutrophils # (Auto) 9.4 TH/MM3 (1.8-7.7) Lymphocytes # (Auto) 0.3 TH/MM3 (1.0-4.8) Monocytes # (Auto) 0.2 TH/MM3 (0-0.9) Eosinophils # (Auto) 0.0 TH/MM3 (0-0.4) Basophils # (Auto) 0.0 TH/MM3 (0-0.2) CBC Comment AUTO DIFF Differential Total Cells Counted 100 Neutrophils % (Manual) 85 % (16-70) Band Neutrophils % 10 % (0-6) Lymphocytes % 3 % (9-44) Monocytes % 1 % (0-8) Neutrophils # (Manual) 9.6 TH/MM3 (1.8-7.7) Metamyelocytes 1 % (0-1) Differential Comment FINAL DIFF MANUAL Toxic Granulation 2+ (NORMAL) Platelet Estimate LOW (NORMAL) Platelet Morphology Comment NORMAL (NORMAL) Ovalocytes 1+ (NORMAL) Acanthocytes OCC (NORMAL) Blood Urea Nitrogen 45 MG/DL (7-18) Creatinine 0.52 MG/DL (0.50-1.00) Random Glucose 185 MG/DL (74-106) Calcium Level 7.7 MG/DL (8.5-10.1) Sodium Level 149 MEQ/L (136-145) Potassium Level 3.8 MEQ/L (3.5-5.1) Chloride Level 115 MEQ/L (98-107) Carbon Dioxide Level 29.6 MEQ/L (21.0-32.0) Anion Gap 4 MEQ/L (5-15) Estimat Glomerular Filtration Rate 116 ML/MIN (>89) Blood Gas Inspired Oxygen 35 % Result Diagram: 02/13/17 0600 02/13/17 0600 Imaging Last 24 hours Impressions Chest X-Ray 02/13/17 0000 Signed Impressions: Service Date/Time: Monday, February 13, 2017 09:59 - CONCLUSION: No significant change in the bilateral pulmonary infiltrates, left greater than right. Brett Persaud MD Procedures 02/05/17 PEG tube placement 02/10/17- Intubated 02/12/17- Extubated 02/12/17-Reintubated . Assessment and Plan Disease Oriented Problem List: (1) Sepsis (2) Hyponatremia (3) Pneumonia (4) Hypoxia Symptom Scale: (1) Shortness of breath Comment: Multifactorial. Patient has had multiple hospitalizations for shortness of breath/pneumonia. Mild respiratory distress. Reintubated. . (2) Decreased oral intake Comment: History of dysphagia status post dilatation. Patient was currently on pured diet in retirement. His lost approximately 25 pounds in 2 months. Now has a PEG Tube-receiving TF. . (3) Debility Comment: Progressive. Patient has had prolonged hospitalization in 4 different facilities since November 2016. Since November she has been hospitalized approximately 5 times. Patient was discharged recently into a long-term facility. Patient has also lost weight significantly. Has not been able to participate in physical therapy due to her illness. Patient remains at high risk for deterioration if she continues to have shortness of breath, which will limit her participation in physical therapy. PT was consulted- recommending PT at rehab. . Pertinent Non-Medical Issues Psychosocial:Patient was born and raised in [place]. Patient still lives in [place] but came to [place] with her granddaughter to visit in late November, after being hospitalized in [place] and [place] for approximately 4 weeks. Patient was twice and once and her last a few years ago . She has 1 adult daughter, one grandchild and 2 great grandchildren. Patients is level of education is high school. 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 Patient has been living alone independently in [place] and helps take care of her elderly mother was 95 years old. Spiritual:Islam of [place]- have support from local rastafari-Does not want visit from country sales manager services Legal:Patient has a designated [facility] Ethical issues impacting care: None identified at this time. Important Contacts Granddaughter-[facility]- Connie Cotton- [phone] Alternate HCS- Freddy Jasiel Cotton [phone] Daughter- Flor Bennett [phone] . Prognosis Mrs Knapp is a 71 years old female with a past medical history of colon cancer, esophageal strictures, pneumonia and anxiety. Patient has had multiple hospitalizations for persistent pneumonia, hyponatremia and dysphagia. She was recently discharged from [facility] to a long-term facility. Patient presented via EMS to [facility] ER on 02/04/17 after she was found slumped over, with cyanosis of limbs and in respiratory distress at [facility]. Patient`s O2 saturation were in the 80s. Given ongoing comorbidities and recent multiple hospitalizations, patient remains at high risk for complications, deterioration in decline. . Code Status: Full Code Plan PLAN: Legal decision maker: Patient is currently intubated and on mechanical ventilation. Patient has designated her granddaughter Connie Cotton as her Healthcare Surrogate and her alternate HCS her granddaughter`s Freddy Cotton. Goals: 02/13/17 Remain aggressive Telephone conversation with patient's granddaughter, Connie who is patient`s health care surrogate. Updated on medical status, already aware that patient was reintubated. Explained to patient's granddaughter that patient may need tracheostomy if she is unable to be medically extubated. Connie verbalized that she wants to honor patient`s wishes to do everything possible to keep her alive. She explains that she has talked to her grandmother about this before. She went ahead to mention that patient`s sister is living with a tracheostomy. She said she is not yet ready to, "let go" of her grandmother. Connie wants patient to have a tracheostomy if she cannot be medically extubated after a few days and she mentioned that as long as her grandmother still has ,"her mind" she will continue with aggressive treatment. CODE STATUS: Full code SYMPTOMS: * Shortness of breath:Multifactorial. Patient has had multiple hospitalizations for shortness of breath/pneumonia. Chest x-ray revealed a space infiltrate in right base, with possible small effusion. Mild respiratory distress noted. Received antibiotics in the ER. Patient continues gets hypercapnic whenever she gets weaned off BiPAP. Patient extubated on 02/12 and reintubated same day. Currently on CPAP5/15/35%. * Decreased oral intake:History of dysphagia status post dilatation. Patient was currently on pured diet in retirement. She lost approximately 25 pounds in 2 months. Recommending swallowing evaluation by speech therapy. Patient failed swallow evaluation today. GI consulted. NG tube attempted to be placed at bedside but unsuccessful. PEG placement by IR. BRADEN Beyer 1.5 infusing at 45 via PEG. Recommending core microarchitect consultation. . * Debility:Progressive. Patient has had prolonged hospitalization in 4 different facilities since November 2016. Since November she has been hospitalized approximately 5 times. Patient was discharged recently into a long-term facility. Patient has also lost weight significantly. Has not been able to participate in physical therapy due to her illness. Patient remains at high risk for deterioration if she continues to have shortness of breath, which will limit her participation in physical therapy. Patient may benefit from physical therapy. Palliative care will continue to follow the patient during hospital course as condition evolves, to assist patient/decision-maker with understanding of their medical conditions, weighing benefits/burdens of treatment options, for clarification of goals of treatment. Additionally will assist with any symptoms of palliative concern. . Attestation To help prompt me to consider important information that might be impacting today's encounter and assessment, information from prior notes written by myself or my colleagues may have been "brought forward" into today's note. My signature on this note, however, is an attestation that I personally performed the exam, history, and/or decision-making noted today, and, unless otherwise indicated, the interactions with patient, family, and staff as well as the review of records all occurred today. I also attest that the listed assessment and stated plan reflect my best clinical judgment today based on the combination of historical information, prior notes, and today's exam/ interactions. When time spent is documented, it refers only to time spent today by the signer, or if indicated, combined time spent today by collaborating physician/nurse practitioner. . Julianne More Feb 13, 2017 14:10
--- NOTE | 2017-02-13 16:33 | HHI.PR ---
Subjective Remarks Sedated on ve4nt support Objective Vital Signs Date Time Temp Pulse Resp B/P (MAP) Pulse Ox O2 Delivery O2 Flow Rate FiO2 02/13/17 16:10 98 35 02/13/17 14:00 96 02/13/17 12:00 98.4 97 16 97/51 (66) 99 02/13/17 12:00 96 02/13/17 12:00 40 02/13/17 11:38 100 35 02/13/17 10:00 98 02/13/17 08:31 100 35 02/13/17 08:00 98.0 91 16 121/53 (75) 100 02/13/17 08:00 98 02/13/17 08:00 40 02/13/17 07:53 98.0 91 16 121/53 (75) 100 02/13/17 06:00 98 02/13/17 04:00 40 02/13/17 04:00 98.8 89 16 99/53 (68) 100 02/13/17 04:00 89 02/13/17 03:29 100 40 02/13/17 02:00 90 02/13/17 00:41 100 40 02/13/17 00:00 95 02/13/17 00:00 40 02/13/17 00:00 98.7 95 16 100/54 (69) 100 02/12/17 22:00 100 02/12/17 20:13 100 40 02/12/17 20:00 97.9 98 16 97/47 (64) 100 02/12/17 20:00 40 02/12/17 20:00 98 02/12/17 19:15 91 16 78/46 (57) 100 02/12/17 19:00 90 16 77/49 (58) 100 02/12/17 18:30 95 16 98/44 (62) 100 02/12/17 18:01 102 41 105/69 (81) 100 02/12/17 18:00 102 02/12/17 18:00 102 34 100 02/12/17 17:37 93 16 78/42 (54) 100 02/12/17 17:31 103 24 104/46 (65) 100 02/12/17 17:30 40 02/12/17 17:00 123 49 150/68 (95) 96 I/O 1202/12/17 02/12/17 02/13/17 02/13/17 02/13/17 07:00 15:00 23:00 07:00 15:00 23:00 Intake Total 579 ml 26.4 ml 1385 ml 2106.7 ml 104 ml Output Total 425 ml 325 ml 465 ml Balance 154 ml 26.4 ml 1060 ml 1641.7 ml 104 ml Intake IV Total 100 ml 26.4 ml 360 ml 1020.7 ml 104 ml Tube Feeding 479 ml 525 ml 586 ml Tube Irrigant 500 ml Other 500 ml Output Urine Total 225 ml 225 ml 365 ml Stool Total 200 ml 100 ml 100 ml # Bowel Movements 1 Result Diagram: 02/13/17 0602/13/17 06 Objective Remarks GENERAL: SKIN: Warm and dry. HEAD: Atraumatic. Normocephalic. EYES: Pupils equal and round. No scleral icterus. No injection or drainage. ENT: No nasal bleeding or discharge. Mucous membranes pink and moist. NECK: Trachea midline. No JVD. CARDIOVASCULAR: Regular rate and rhythm. RESPIRATORY: No accessory muscle use. Clear to auscultation. Breath sounds equal bilaterally. GASTROINTESTINAL: Abdomen soft, non-tender, nondistended. Hepatic and splenic margins not palpable. MUSCULOSKELETAL: Extremities without clubbing, cyanosis, or edema. No obvious deformities. NEUROLOGICAL: Awake and alert. No obvious cranial nerve deficits. Motor grossly within normal limits. Five out of 5 muscle strength in the arms and legs. Normal speech. PSYCHIATRIC: Appropriate mood and affect; insight and judgment normal. Medications and IVs Vital Signs Date Time Temp Pulse Resp B/P (MAP) Pulse Ox O2 Delivery O2 Flow Rate FiO2 02/13/17 16:10 98 35 02/13/17 14:00 96 02/13/17 12:00 98.4 97 16 97/51 (66) 99 02/13/17 12:00 96 02/13/17 12:00 40 02/13/17 11:38 100 35 02/13/17 10:00 98 02/13/17 08:31 100 35 02/13/17 08:00 98.0 91 16 121/53 (75) 100 02/13/17 08:00 98 02/13/17 08:00 40 02/13/17 07:53 98.0 91 16 121/53 (75) 100 02/13/17 06:00 98 02/13/17 04:00 40 02/13/17 04:00 98.8 89 16 99/53 (68) 100 02/13/17 04:00 89 02/13/17 03:29 100 40 02/13/17 02:00 90 02/13/17 00:41 100 40 02/13/17 00:00 95 02/13/17 00:00 40 02/13/17 00:00 98.7 95 16 100/54 (69) 100 02/12/17 22:00 100 02/12/17 20:13 100 40 02/12/17 20:00 97.9 98 16 97/47 (64) 100 02/12/17 20:00 40 02/12/17 20:00 98 02/12/17 19:15 91 16 78/46 (57) 100 02/12/17 19:00 90 16 77/49 (58) 100 02/12/17 18:30 95 16 98/44 (62) 100 02/12/17 18:01 102 41 105/69 (81) 100 02/12/17 18:00 102 02/12/17 18:00 102 34 100 02/12/17 17:37 93 16 78/42 (54) 100 02/12/17 17:31 103 24 104/46 (65) 100 02/12/17 17:30 40 02/12/17 17:00 123 49 150/68 (95) 96 Assessment and Plan Assessment and Plan Respiratory failure PNA COLON ca PLAN VENT SUPPORT ANTIBIOTICS WEAN TOLERATED OUTLOOK Katarzyna Arias MD Feb 13, 2017 16:33
--- NOTE | 2017-02-13 16:38 | HHI.IDPN ---
Subjective Subjective Remarks pt did not tolerate extubation and is now re-intubated she is afebrile, WBC going down Antibiotics ceepime azithro Allergies: Coded Allergies: Penicillins (Verified Allergy, Unknown, 02/04/17) Objective . Vital Signs Date Time Temp Pulse Resp B/P (MAP) Pulse Ox O2 Delivery O2 Flow Rate FiO2 02/13/17 16:10 98 35 02/13/17 14:00 96 02/13/17 12:00 98.4 97 16 97/51 (66) 99 02/13/17 12:00 96 02/13/17 12:00 40 02/13/17 11:38 100 35 02/13/17 10:00 98 02/13/17 08:31 100 35 02/13/17 08:00 98.0 91 16 121/53 (75) 100 02/13/17 08:00 98 02/13/17 08:00 40 02/13/17 07:53 98.0 91 16 121/53 (75) 100 02/13/17 06:00 98 02/13/17 04:00 40 02/13/17 04:00 98.8 89 16 99/53 (68) 100 02/13/17 04:00 89 02/13/17 03:29 100 40 02/13/17 02:00 90 02/13/17 00:41 100 40 02/13/17 00:00 95 02/13/17 00:00 40 02/13/17 00:00 98.7 95 16 100/54 (69) 100 02/12/17 22:00 100 02/12/17 20:13 100 40 02/12/17 20:00 97.9 98 16 97/47 (64) 100 02/12/17 20:00 40 02/12/17 20:00 98 02/12/17 19:15 91 16 78/46 (57) 100 02/12/17 19:00 90 16 77/49 (58) 100 02/12/17 18:30 95 16 98/44 (62) 100 02/12/17 18:01 102 41 105/69 (81) 100 02/12/17 18:00 102 02/12/17 18:00 102 34 100 02/12/17 17:37 93 16 78/42 (54) 100 02/12/17 17:31 103 24 104/46 (65) 100 02/12/17 17:30 40 02/12/17 17:00 123 49 150/68 (95) 96 02/13/17 02/13/17 02/14/17 15:00 23:00 07:00 Intake Total 104 ml Balance 104 ml Intake IV Total 104 ml . Laboratory Tests Test 02/12/17 06:00 02/13/17 06:00 White Blood Count 11.4 TH/MM3 10.0 TH/MM3 Red Blood Count 2.61 MIL/MM3 2.17 MIL/MM3 Hemoglobin 7.8 GM/DL 6.8 GM/DL Hematocrit 23.7 % 20.8 % Mean Corpuscular Volume 90.7 FL 95.6 FL Mean Corpuscular Hemoglobin 30.1 PG 31.5 PG Mean Corpuscular Hemoglobin Concent 33.1 % 33.0 % Red Cell Distribution Width 16.2 % 16.5 % Platelet Count 89 TH/MM3 88 TH/MM3 Mean Platelet Volume 8.6 FL 8.0 FL Neutrophils (%) (Auto) 95.1 % 94.6 % Lymphocytes (%) (Auto) 2.3 % 2.9 % Monocytes (%) (Auto) 2.5 % 2.4 % Eosinophils (%) (Auto) 0.0 % 0.0 % Basophils (%) (Auto) 0.1 % 0.1 % Neutrophils # (Auto) 10.8 TH/MM3 9.4 TH/MM3 Lymphocytes # (Auto) 0.3 TH/MM3 0.3 TH/MM3 Monocytes # (Auto) 0.3 TH/MM3 0.2 TH/MM3 Eosinophils # (Auto) 0.0 TH/MM3 0.0 TH/MM3 Basophils # (Auto) 0.0 TH/MM3 0.0 TH/MM3 CBC Comment AUTO DIFF AUTO DIFF Differential Comment AUTO DIFF CONFIRMED FINAL DIFF MANUAL Differential Total Cells Counted 100 Neutrophils % (Manual) 85 % Band Neutrophils % 10 % Lymphocytes % 3 % Monocytes % 1 % Neutrophils # (Manual) 9.6 TH/MM3 Metamyelocytes 1 % Toxic Granulation 2+ Platelet Estimate LOW Platelet Morphology Comment NORMAL Ovalocytes 1+ Acanthocytes OCC Laboratory Tests Test 02/12/17 06:00 02/13/17 06:00 Blood Urea Nitrogen 45 MG/DL 45 MG/DL Creatinine 0.53 MG/DL 0.52 MG/DL Random Glucose 172 MG/DL 185 MG/DL Calcium Level 8.0 MG/DL 7.7 MG/DL Phosphorus Level 3.4 MG/DL Magnesium Level 2.2 MG/DL Sodium Level 153 MEQ/L 149 MEQ/L Potassium Level 3.8 MEQ/L 3.8 MEQ/L Chloride Level 118 MEQ/L 115 MEQ/L Carbon Dioxide Level 29.6 MEQ/L 29.6 MEQ/L Anion Gap 5 MEQ/L 4 MEQ/L Estimat Glomerular Filtration Rate 114 ML/MIN 116 ML/MIN Imaging Last Impressions Chest X-Ray 02/13/17 0000 Signed Impressions: Service Date/Time: Monday, February 13, 2017 09:59 - CONCLUSION: No significant change in the bilateral pulmonary infiltrates, left greater than right. Brett Persaud MD Gastrostomy Tube Placement 02/05/17 0000 Signed Impressions: Service Date/Time: January 16:47 - CONCLUSION: Uncomplicated gastrostomy tube placement as above. Jorje Josue MD Lower Extremity Ultrasound 02/04/17 0000 Signed Impressions: Service Date/Time: Saturday, February 04, 2017 21:13 - CONCLUSION: 1. No evidence of deep venous thrombosis within the lower extremities. 2. Popliteal cyst on the left measuring 2.2 x 1.5 x 0.9 cm. Julian Mcmahan MD Head CT 02/04/17 0000 Signed Impressions: Service Date/Time: Saturday, February 04, 2017 17:50 - CONCLUSION: 1. No acute intracranial abnormality. 2. Tiny fluid level within the right maxillary sinus. Julian Mcmahan MD CT Angiography 02/04/17 0000 Signed Impressions: Service Date/Time: Saturday, February 04, 2017 17:54 - CONCLUSION: 1. No evidence of pulmonary embolism. 2. Bibasilar alveolar consolidations as well as scattered perihilar patchy opacities suggestive of probable pneumonia. Clinical correlation is recommended. 3. 1.7 cm right thyroid nodule. Julian Mcmahan MD Abdomen X-Ray 02/04/17 0000 Signed Impressions: Service Date/Time: January 05:52 - CONCLUSION: Interval placement of nasogastric tube with the tip in the left mainstem bronchus. Caesar Ramos MD Physical Exam CONSTITUTIONAL/GENERAL: This is a poorly nourished patient, in no apparent distress. TUBES/LINES/DRAINS: SKIN: No jaundice, rashes, or lesions. Skin temperature appropriate. Not diaphoretic. HEAD: Atraumatic. Normocephalic. EYES: Pupils equal and round and reactive. Extraocular motions intact. No scleral icterus. No injection or drainage. Fundi not examined. ENT: Hearing grossly normal. Nose without bleeding or purulent drainage. Throat without visible erythema, exudates, masses, or lesions. NECK: Trachea midline. Supple, nontender. CARDIOVASCULAR: Regular rate and rhythm without murmurs, gallops, or rubs. No JVD. Peripheral pulses symmetric. RESPIRATORY/CHEST: Symmetric, unlabored respirations. Clear to auscultation. Breath sounds equal bilaterally. No wheezes, rales, or rhonchi. GASTROINTESTINAL: Abdomen soft, quite tender diffusely to palpation espicially LLQ , nondistended. No hepato-splenomegaly, or palpable masses. No guarding. Bowel sounds present. Rectal tube in place with liquid stool GENITOURINARY: Without palpable bladder distension. MUSCULOSKELETAL: Extremities without clubbing, cyanosis, or edema. No joint tenderness or effusion noted. No calf tenderness. No mottling or clubbing. LYMPHATICS: No palpable cervical or supraclavicular adenopathy.Lightly sedated , easily arousable . Moves all extremities. PSYCHIATRIC: No obvious anxiety/depression. no apparent hallucinations or other psychotic thought process. Assessment & Plan Remarks PNA, culture neg Acute VDRF - recurrent intubation Diarrhea, abx associated - C.diff negative dc vancomycin dc levaquin cont azithromycin cont cefepime for now Ness Lopez MD Feb 13, 2017 16:38
[2017-02-13] MEDS: AZITHROMYCIN INJ 500 MG in SODIUM CHLOR 0.9% 250 ML INJ 250 ML IV SCH (17:51)
[2017-02-13] MEDS: DEXMEDETOMIDINE INJ 400 MCG in SODIUM CHLORIDE 0.9% INJ 96 ML IV PRN (18:21)
[2017-02-13] MEDS: ENOXAPARIN SODIUM 40 MG/0.4 ML SYRINGE SQ SCH (20:19)
[2017-02-13 21:57] LABS: HEMATOCRIT 28.4 % (35.0-46.0); HEMOGLOBIN 9.4 GM/DL (11.6-15.3)
[2017-02-13] MEDS: ALPRAZolam 0.5 MG TAB PO PRN (22:42)
[2017-02-14] VITALS (20 sets, daily range): BP systolic 97–134; BP diastolic 53–66; PULSE 67–87; RESP 16; TEMP 97.6–99; O2SAT 97–100
[2017-02-14] MEDS: INSULIN NovoLIN REGULAR SUPPLEMENTAL SCALE SQ SCH ×7 (00:11→23:42)
[2017-02-14] MEDS: CHLORHEXIDINE GLUCONATE 2 % 1 PACK (2 CLOTHS) TOP SCH (00:25)
[2017-02-14] MEDS: RESP: ALBUTEROL 2.5 MG/IPRATROPIUM 0.5 MG NEB (SCH) NEB ×6 (03:06→23:31)
[2017-02-14] MEDS: FREE WATER G-TUBE SCH ×5 (05:20→23:37)
[2017-02-14] MEDS: CEFEPIME INJ 2,000 MG in SODIUM CHLORIDE 0.9% INJ 100 ML IV SCH ×2 (05:29→16:11)
[2017-02-14 06:49] LABS: AUTOMATED NEUTROPHIL # 10.1 TH/MM3 (1.8-7.7); BASOPHIL % 0.1 % (0.0-2.0); HEMATOCRIT 24.9 % (35.0-46.0); HEMOGLOBIN 8.5 GM/DL (11.6-15.3); LYMPH % 2.6 % (9.0-44.0); LYMPHOCYTE # 0.3 TH/MM3 (1.0-4.8); MEAN CELL VOLUME 87.2 FL (80.0-100.0); MEAN CORPUSCULAR HEMOGLOBIN 29.8 PG (27.0-34.0); MEAN CORPUSCULAR HGB CONC 34.1 % (32.0-36.0); MEAN PLATELET VOLUME 8.5 FL (7.0-11.0); MONO % 2.2 % (0.0-8.0); MONOCYTE # 0.2 TH/MM3 (0-0.9); NEUT % 95.1 % (16.0-70.0); PLATELET COUNT 78 TH/MM3 (150-450); RED BLOOD COUNT 2.86 MIL/MM3 (4.00-5.30); RED CELL DISTRIBUTION WIDTH 16.6 % (11.6-17.2); WHITE BLOOD COUNT 10.6 TH/MM3 (4.0-11.0)
[2017-02-14 07:15] LABS: BICARBONATE 29.5 MEQ/L (21.0-32.0); CALCIUM 7.9 MG/DL (8.5-10.1); CREATININE 0.5 MG/DL (0.50-1.00); MAGNESIUM 2.2 MG/DL (1.5-2.5)
[2017-02-14 07:16] LABS: PHOSPHORUS 2.8 MG/DL (2.5-4.9)
[2017-02-14] MEDS: CHLORHEXIDINE 0.12% (ORAL KIT) 15 ML CUP MT SCH ×2 (08:00→20:42)
[2017-02-14] MEDS: ALPRAZolam 0.5 MG TAB PO PRN ×3 (08:53→23:37)
[2017-02-14] MEDS: INSULIN DETEMIR 100 UNITS/ML VIAL SQ SCH ×2 (08:54→20:43)
[2017-02-14] MEDS: SODIUM CHLORIDE 0.9% FLUSH 10 ML FLUSH IV FLUSH SCH ×2 (08:54→20:42)
[2017-02-14] MEDS: methylPREDNISolone SOD SUCC 40 MG/1 ML VIAL IV PUSH SCH ×2 (08:54→20:43)
[2017-02-14] MEDS: PANTOPRAZOLE SODIUM 40 MG VIAL IV PUSH SCH (08:54)
--- NOTE | 2017-02-14 11:46 | HHI.IDPN ---
Subjective Subjective Remarks remainhs on vent, stable moderate secretions + low grade temps 100.3 stool 4 BM/d Antibiotics cefepime azithro Allergies: Coded Allergies: Penicillins (Verified Allergy, Unknown, 02/04/17) Objective . Vital Signs Date Time Temp Pulse Resp B/P (MAP) Pulse Ox O2 Delivery O2 Flow Rate FiO2 02/14/17 10:39 100 35 02/14/17 07:47 99 35 02/14/17 06:00 74 02/14/17 05:06 98 35 02/14/17 04:00 71 02/14/17 04:00 97.6 71 16 115/53 (73) 100 02/14/17 04:00 35 02/14/17 02:00 79 02/14/17 01:06 98 35 02/14/17 00:00 87 02/14/17 00:00 35 02/14/17 00:00 99.0 87 16 97/58 (71) 100 02/13/17 22:00 96 02/13/17 20:41 100.3 88 16 93/53 99 02/13/17 20:39 100.3 88 16 95/50 99 02/13/17 20:00 87 02/13/17 20:00 100.3 87 16 117/75 (89) 97 02/13/17 20:00 35 02/13/17 19:51 98 35 02/13/17 18:00 96 02/13/17 16:10 98 35 02/13/17 16:00 98.2 93 16 100/53 (69) 98 02/13/17 16:00 40 02/13/17 16:00 96 02/13/17 14:00 96 02/13/17 12:00 98.4 97 16 97/51 (66) 99 02/13/17 12:00 96 02/13/17 12:00 40 02/13/17 11:38 100 35 . Laboratory Tests Test 02/13/17 06:00 02/13/17 21:44 02/14/17 05:22 White Blood Count 10.0 TH/MM3 10.6 TH/MM3 Red Blood Count 2.17 MIL/MM3 2.86 MIL/MM3 Hemoglobin 6.8 GM/DL 9.4 GM/DL 8.5 GM/DL Hematocrit 20.8 % 28.4 % 24.9 % Mean Corpuscular Volume 95.6 FL 87.2 FL Mean Corpuscular Hemoglobin 31.5 PG 29.8 PG Mean Corpuscular Hemoglobin Concent 33.0 % 34.1 % Red Cell Distribution Width 16.5 % 16.6 % Platelet Count 88 TH/MM3 78 TH/MM3 Mean Platelet Volume 8.0 FL 8.5 FL Neutrophils (%) (Auto) 94.6 % 95.1 % Lymphocytes (%) (Auto) 2.9 % 2.6 % Monocytes (%) (Auto) 2.4 % 2.2 % Eosinophils (%) (Auto) 0.0 % 0.0 % Basophils (%) (Auto) 0.1 % 0.1 % Neutrophils # (Auto) 9.4 TH/MM3 10.1 TH/MM3 Lymphocytes # (Auto) 0.3 TH/MM3 0.3 TH/MM3 Monocytes # (Auto) 0.2 TH/MM3 0.2 TH/MM3 Eosinophils # (Auto) 0.0 TH/MM3 0.0 TH/MM3 Basophils # (Auto) 0.0 TH/MM3 0.0 TH/MM3 CBC Comment AUTO DIFF AUTO DIFF Differential Total Cells Counted 100 Neutrophils % (Manual) 85 % Band Neutrophils % 10 % Lymphocytes % 3 % Monocytes % 1 % Neutrophils # (Manual) 9.6 TH/MM3 Metamyelocytes 1 % Differential Comment FINAL DIFF MANUAL AUTO DIFF CONFIRMED Toxic Granulation 2+ Platelet Estimate LOW LOW Platelet Morphology Comment NORMAL NORMAL Ovalocytes 1+ Acanthocytes OCC Laboratory Tests Test 02/13/17 06:00 02/14/17 05:22 Blood Urea Nitrogen 45 MG/DL 45 MG/DL Creatinine 0.52 MG/DL 0.50 MG/DL Random Glucose 185 MG/DL 140 MG/DL Calcium Level 7.7 MG/DL 7.9 MG/DL Sodium Level 149 MEQ/L 147 MEQ/L Potassium Level 3.8 MEQ/L 3.9 MEQ/L Chloride Level 115 MEQ/L 111 MEQ/L Carbon Dioxide Level 29.6 MEQ/L 29.5 MEQ/L Anion Gap 4 MEQ/L 7 MEQ/L Estimat Glomerular Filtration Rate 116 ML/MIN 122 ML/MIN Phosphorus Level 2.8 MG/DL Magnesium Level 2.2 MG/DL Imaging Last Impressions Chest X-Ray 02/13/17 0000 Signed Impressions: Service Date/Time: Monday, February 13, 2017 09:59 - CONCLUSION: No significant change in the bilateral pulmonary infiltrates, left greater than right. Brett Persaud MD Gastrostomy Tube Placement 02/05/17 0000 Signed Impressions: Service Date/Time: January 16:47 - CONCLUSION: Uncomplicated gastrostomy tube placement as above. Jorje Josue MD Lower Extremity Ultrasound 02/04/17 0000 Signed Impressions: Service Date/Time: Saturday, February 04, 2017 21:13 - CONCLUSION: 1. No evidence of deep venous thrombosis within the lower extremities. 2. Popliteal cyst on the left measuring 2.2 x 1.5 x 0.9 cm. Julian Mcmahan MD Head CT 02/04/17 0000 Signed Impressions: Service Date/Time: Saturday, February 04, 2017 17:50 - CONCLUSION: 1. No acute intracranial abnormality. 2. Tiny fluid level within the right maxillary sinus. Julian Mcmahan MD CT Angiography 02/04/17 0000 Signed Impressions: Service Date/Time: Saturday, February 04, 2017 17:54 - CONCLUSION: 1. No evidence of pulmonary embolism. 2. Bibasilar alveolar consolidations as well as scattered perihilar patchy opacities suggestive of probable pneumonia. Clinical correlation is recommended. 3. 1.7 cm right thyroid nodule. Julian Mcmahan MD Abdomen X-Ray 02/04/17 0000 Signed Impressions: Service Date/Time: January 05:52 - CONCLUSION: Interval placement of nasogastric tube with the tip in the left mainstem bronchus. Caesar Ramos MD Physical Exam CONSTITUTIONAL/GENERAL: This is a poorly nourished patient, in no apparent distress. TUBES/LINES/DRAINS: SKIN: No jaundice, rashes, or lesions. Skin temperature appropriate. Not diaphoretic. EYES: Pupils equal and round and reactive. Extraocular motions intact. No scleral icterus. No injection or drainage. Fundi not examined. ENT: Hearing grossly normal. Nose without bleeding or purulent drainage. Throat without visible erythema, exudates, masses, or lesions. CARDIOVASCULAR: Regular rate and rhythm without murmurs, gallops, or rubs. No JVD. Peripheral pulses symmetric. RESPIRATORY/CHEST: Symmetric, unlabored respirations. Clear to auscultation. Breath sounds equal bilaterally. No wheezes, rales, or rhonchi. GASTROINTESTINAL: Abdomen soft, quite tender diffusely to palpation espicially LLQ , somewhat distended. No hepato-splenomegaly, or palpable masses. No guarding. Bowel sounds present. Rectal tube in place with liquid stool GENITOURINARY: Without palpable bladder distension. MUSCULOSKELETAL: Extremities without clubbing, cyanosis, or edema. No joint tenderness or effusion noted. No calf tenderness. No mottling or clubbing. LYMPHATICS: No palpable cervical or supraclavicular adenopathy.Lightly sedated , easily arousable . Moves all extremities. PSYCHIATRIC: No obvious anxiety/depression. no apparent hallucinations or other psychotic thought process. Assessment & Plan Remarks PNA, culture neg Acute VDRF - recurrent intubation Diarrhea, abx associated - C.diff negative Abdominal pain, diffuse cont azithromycin cont cefepime for now repeat sputum clx CT abd/pel LFTs Ness Lopez MD Feb 14, 2017 11:46
--- NOTE | 2017-02-14 12:18 | HHI.CCPN ---
Subjective Remarks/Hospital Course 02/04: 71-year-old female with a medical history significant for colon cancer in 2003 for which she underwent partial colon resection and chemotherapy, esophageal stricture with significant weight loss due to poor by mouth intake for which she was hospitalized in [place] in November 2016 for 2 weeks treated for pneumonia and subsequently evaluated for dysphagia and was found to have a sufficient stricture for which she was transferred to [facility] in [place] and underwent esophageal dilatation and was subsequently discharged 2 weeks later on a pured diet. Patient moved to [place] with her granddaughter and a few beats VAC was admitted to [facility] for worsening shortness of breath and was diagnosed with a pneumonia, hyponatremia. She was treated with antibiotics and subsequently discharged home however the following day had to be readmitted at [facility] for unresolved shortness of breath where she was hospitalized for a week and subsequently discharged to [place] [facility] 3 days prior to this admission. Patient's by mouth intake has been poor since her discharge 3 days back according to her granddaughter as the pured diet at the [place] [facility] is to take. Patient was found to have altered mental status today and was found slumped to one side with poor respirations. EMS was called and patient was noted to have O2 sats in the 60s. She was transported to the emergency room where she was placed on BiPAP for respiratory distress with hypoxic respiratory failure. She was also noted to be hypertensive on arrival with systolic blood pressure in the 200s. Patient was also found to have a sodium of 118. I was contacted by ER physician and accepted patient for admission to the ICU. When I evaluated the patient in the ER she was on BiPAP with full facemask. History was obtained by discussion with patient's granddaughter was at the bedside. Patient was much more awake at this time and trying to communicate however in view of BiPAP requirement was difficult to communicate with. She denied any chest pain at the time. Patient has chronic diarrhea since her colon surgery in 2003. Per the granddaughter she was doing well till about 3 months ago when she started having significant weight loss and poor by mouth intake possibly related to esophageal stricture and the fact that she was taking care of her sick family member at home. She has been advised a PEG tube per the granddaughter because of her poor nutritional status and poor by mouth intake. She has had problems with hyponatremia off and on for a while. Patient's granddaughter is very concerned about her poor nutritional status. 02/05: Tolerating nasal cannula. Underwent PEG tube placement by IR today. Sodium 122. 02/06 No events overnight. s/p PEG tube placement yesterday. Sodium level 131 this morning 02/07 No events overnight. On 50% VM with good sats. 02/08 No events overnight. Afebrile . Off BIPAP. 02/09 Patient is on BIPAP 02/03 with 45% FIO2> Afebrile. 02/10 Patient was intubated early this morning for acute hypercapnic resp acidosis. Afebrile. 02/11 No events overnight. Patient remains intubated. Afebrile. 02/12 Patient remains intubated and on Precedex drip for sedation. Afebrile. 02/13 Patient was extubated yesterday and reintubated late afternoon for acute resp acidosis. afebrile. 02/14: remains intubated. appears very weak. long conversation with granddaughter and medical decision-maker at bedside. likely will require tracheostomy given repeat re-intubations and chronic debilitation. granddaughter requests we wait until thursday or thursday, and requests it be done in the OR and not at bedside. Objective Vital Signs Date Time Temp Pulse Resp B/P (MAP) Pulse Ox O2 Delivery O2 Flow Rate FiO2 02/14/17 10:39 100 35 02/14/17 06:00 74 02/14/17 04:00 97.6 16 115/53 (73) 02/12/17 14:40 Nasal Cannula 2.00 Intake and Output 02/14/17 02/14/17 02/15/17 08:00 16:00 00:00 Intake Total 1210 ml Output Total 750 ml Balance 460 ml Result Diagram: 02/14/17 0522 02/14/17 0522 Other Results Laboratory Tests Test 02/13/17 12:10 Blood Gas Puncture Site RT RADIAL Blood Gas Patient Temperature 98.6 Blood Gas HCO3 30 mmol/L (22-26) Blood Gas Base Excess 5.6 mmol/L (-2-2) Blood Gas Oxygen Saturation 94 % (90-100) Arterial Blood pH 7.45 (7.380-7.420) Arterial Blood Partial Pressure CO2 43 mmHg (38-42) Arterial Blood Partial Pressure O2 79 mmHg (61-120) Arterial Blood Oxygen Content 11.0 Vol % (12.0-20.0) Arterial Blood Carboxyhemoglobin 1.1 % (0-4) Arterial Blood Methemoglobin 1.1 % (0-2) Blood Gas Hemoglobin 8.2 G/DL (12.0-16.0) Oxygen Delivery Device VENTILATOR Blood Gas Ventilator Setting CPAP+5/PS+15 Blood Gas Inspired Oxygen 35 % Imaging Last Impressions Chest X-Ray 02/12/17 0000 Signed Impressions: Service Date/Time: January 18:13 - CONCLUSION: 1. Endotracheal tube tip remains in proximal right mainstem bronchus and should be withdrawn about 2- 3 cm. 2. There is basilar airspace disease, left greater than right with small effusions. Candido Garay MD Gastrostomy Tube Placement 02/05/17 0000 Signed Impressions: Service Date/Time: January 16:47 - CONCLUSION: Uncomplicated gastrostomy tube placement as above. Jorje Josue MD Lower Extremity Ultrasound 02/04/17 0000 Signed Impressions: Service Date/Time: Saturday, February 04, 2017 21:13 - CONCLUSION: 1. No evidence of deep venous thrombosis within the lower extremities. 2. Popliteal cyst on the left measuring 2.2 x 1.5 x 0.9 cm. Julian Mcmahan MD Head CT 02/04/17 0000 Signed Impressions: Service Date/Time: Saturday, February 04, 2017 17:50 - CONCLUSION: 1. No acute intracranial abnormality. 2. Tiny fluid level within the right maxillary sinus. Julian Mcmahan MD CT Angiography 02/04/17 0000 Signed Impressions: Service Date/Time: Saturday, February 04, 2017 17:54 - CONCLUSION: 1. No evidence of pulmonary embolism. 2. Bibasilar alveolar consolidations as well as scattered perihilar patchy opacities suggestive of probable pneumonia. Clinical correlation is recommended. 3. 1.7 cm right thyroid nodule. Julian Mcmahan MD Abdomen X-Ray 02/04/17 0000 Signed Impressions: Service Date/Time: January 05:52 - CONCLUSION: Interval placement of nasogastric tube with the tip in the left mainstem bronchus. Caesar Ramos MD Objective Remarks GENERAL: frail elderly female, lying in bed, intubated. SKIN: Warm and dry. HEAD: Normocephalic. EYES: No scleral icterus. No injection or drainage. NECK: trachea midline. No JVD CARDIOVASCULAR: normal rate, regular rhythm. appears sinus by tele. RESPIRATORY: PRVC mode. intubated. full support. peep 5. GASTROINTESTINAL: Abdomen soft, non-tender, nondistended. no guarding. MUSCULOSKELETAL: No cyanosis, or edema. Neuro: RASS -2. follows commands. moves all extremities. A/P Assessment and Plan Assessment: 71yF with at least a 3 month chronic course of failure to thrive and weight loss, esophageal stricture, and now recurrent hypoxic and hypercarbic respiratory failure requiring multiple intubations. She needs aggressive pulmonary rehab in an LTAC type facility. At granddaughters request, will hold off on tracheostomy for right now, though would recommend not attempting extubation given how debilitated and frail the patient is, and given the likelihood of an additional re-intubation would further worsen her overall condition. off pathway. will need to engage general surgery in the near future for tracheostomy and possibility of procedure done in operating room at family' s request. Plan: Neuro: Acute metabolic encephalopathy - precedex for goal RASS -2. daily sedation vacations CV: Monitor HR and BP keep MAP>65mmHg Pulm: Recurrent acute hypercarbic and hypoxic respiratory failure likely secondary to deconditioning and weakness. likely also large component of silent or overt aspiration and inability to control secretions. Continue with vent support keep sat >92% Bronchodilators. On solumedrol 40mg Q12, ICU vent bundle. CT chest with no evidence of PE and shows bibasilar infiltrates concerning for recurrent aspiration pneumonia Pulm is following continue daily SBTs. GI/liver: Failure to thrive Hypernatremia Free water deficit Chronic diarrhea History of esophageal stricture status post recent esophageal dilation History of colon cancer Acute protein calorie malnutrition - severe s/p PEG tube placement by IR 02/05 Continue tube feeds-Jevity 1.5 @ 45ml/hr GI involved. daily bmp increase free water to 300mL po q4h Renal/: Acute intravascular volume overload Metabolic alkalosis Monitor renal function, I/O's, electrolytes replacement as needed. On Free water 250ml Q6, monitor sodium level. continue forced diuresis. increase diamox to 500mg iv q12h. ID: Healthcare Associated Pneumonia Continue Cefepime and azithromycin. ID following. Endocrine: Hyperglycemia of Critical Illness SSI for glycemic control Levemir 5u Q12 Heme-onc: Anemia secondary to chronic disease Monitor CBC does not meet transfusion criteria. Prophylaxis: PPI/SCDs. Subcutaneous Lovenox. Palliative care is following Waldo Luke MD Feb 14, 2017 12:18
[2017-02-14] MEDS ORDERED: DIATRIZOATE MEGLUM/DIATRIZOATE SOD 9 ML CUP PO ONE (12:45)
[2017-02-14] MEDS ORDERED: FUROSEMIDE 40 MG/4 ML VIAL IV PUSH ONE (13:00)
[2017-02-14] MEDS: AZITHROMYCIN INJ 500 MG in SODIUM CHLOR 0.9% 250 ML INJ 250 ML IV SCH (16:11)
[2017-02-14] MEDS: ENOXAPARIN SODIUM 40 MG/0.4 ML SYRINGE SQ SCH (20:42)
--- NOTE | 2017-02-14 23:40 | RADRPT ---
EXAM DATE/TIME: 02/14/2017 23:14 [facility] COMPARISON: No previous studies available for comparison. INDICATIONS : Abdomen pain. ORAL CONTRAST: Prescribed oral contrast ingested. RADIATION DOSE: 8.05 CTDIvol (mGy) MEDICAL HISTORY : Hernia, hiatal. Gastroesophageal reflux disease. Carcinoma, colon. SURGICAL HISTORY : Colon resection. Left hip replacement ENCOUNTER: Initial ACUITY: 1 day PAIN SCALE: Non-responsive LOCATION: abdomen TECHNIQUE: Volumetric scanning of the abdomen and pelvis was performed. Using automated exposure control and ad justment of the mA and/or kV according to patient size, radiation dose was kept as low as reasonably achievable to obtain optimal diagnostic quality images. DICOM format image data is available [facility] for [facility] and comparison. FINDINGS: A noncontrast study was done. There is small ascites and diffuse body wall edema/anasarca. No organiz ed fluid is demonstrated. Noncontrast appearance of the liver, spleen, pancreas, adrenal glands and kidneys is within normal li mits. There is no lymphadenopathy. Percutaneously placed gastric feeding tube is present, tip in the distal body. There is diverticulosi s of the sigmoid colon but no acute inflammatory changes. Oral contrast in the rectum appears to be d isplaced by a potential mass just above the anal verge estimated at 3.1 cm in size. The bowel gas pat tern is nonobstructive. Multiple small stones are seen in an otherwise normal-appearing gallbladder. No ductal stone or ducta l dilatation. There is no lymphadenopathy. Small right and [id number] left pleural effusions are noted and there is dependent sludge comp ressive atelectasis of both visualized lung bases. Bladder decompressed with a Cabrera. CONCLUSION: 1. Nonspecific small ascites with bilateral pleural effusions and body wall edema/anasarca. No absces s demonstrated. 2. Possible mass of the lower rectum and please correlate clinically. 3. Gastric feeding tube with tip in the lower body. 4. Sigmoid colon diverticulosis without perceptible acute inflammatory changes. 5. Cholelithiasis without evidence of cholecystitis or biliary obstruction. Phan Lomas MD on February 14, 2017 at 23:33 Board Certified Radiologist. This report was verified electronically.
[2017-02-15] VITALS (20 sets, daily range): BP systolic 97–109; BP diastolic 51–60; PULSE 56–97; RESP 16–18; TEMP 97.7–98.6; O2SAT 98–100
[2017-02-15] MEDS: RESP: ALBUTEROL 2.5 MG/IPRATROPIUM 0.5 MG NEB (SCH) NEB ×6 (03:56→23:02)
[2017-02-15] MEDS: FREE WATER G-TUBE SCH ×6 (04:00→23:38)
[2017-02-15] MEDS: INSULIN NovoLIN REGULAR SUPPLEMENTAL SCALE SQ SCH ×6 (04:00→23:38)
[2017-02-15] MEDS: CHLORHEXIDINE GLUCONATE 2 % 1 PACK (2 CLOTHS) TOP SCH (04:00)
[2017-02-15] MEDS: CEFEPIME INJ 2,000 MG in SODIUM CHLORIDE 0.9% INJ 100 ML IV SCH ×3 (05:36→22:21)
[2017-02-15] MEDS: ALPRAZolam 0.5 MG TAB PO PRN ×3 (06:39→23:39)
[2017-02-15] MEDS: CHLORHEXIDINE 0.12% (ORAL KIT) 15 ML CUP MT SCH ×2 (08:00→20:46)
[2017-02-15] MEDS: PANTOPRAZOLE SOD 40 MG DELAYED RELEASE TAB PO SCH (08:07)
[2017-02-15] MEDS: methylPREDNISolone SOD SUCC 40 MG/1 ML VIAL IV PUSH SCH ×2 (08:07→20:47)
[2017-02-15] MEDS: SODIUM CHLORIDE 0.9% FLUSH 10 ML FLUSH IV FLUSH SCH ×2 (08:08→20:47)
[2017-02-15] MEDS: INSULIN DETEMIR 100 UNITS/ML VIAL SQ SCH ×2 (08:09→21:00)
[2017-02-15] MEDS: FUROSEMIDE 40 MG/4 ML VIAL IV PUSH SCH ×2 (10:05→16:43)
[2017-02-15] MEDS: DEXTROSE 5% IN WATE 1000ML INJ 1,000 ML IV SCH (12:30)
--- NOTE | 2017-02-15 14:27 | HHI.CCPN ---
Subjective Remarks/Hospital Course 02/04: 71-year-old female with a medical history significant for colon cancer in 2003 for which she underwent partial colon resection and chemotherapy, esophageal stricture with significant weight loss due to poor by mouth intake for which she was hospitalized in [place] in November 2016 for 2 weeks treated for pneumonia and subsequently evaluated for dysphagia and was found to have a sufficient stricture for which she was transferred to [facility] in [place] and underwent esophageal dilatation and was subsequently discharged 2 weeks later on a pured diet. Patient moved to [place] with her granddaughter and a few beats VAC was admitted to [facility] for worsening shortness of breath and was diagnosed with a pneumonia, hyponatremia. She was treated with antibiotics and subsequently discharged home however the following day had to be readmitted at [facility] for unresolved shortness of breath where she was hospitalized for a week and subsequently [facility] to [facility] days prior to this admission. Patient's by mouth intake has been poor since her discharge 3 days back according to her granddaughter as the pured diet at the [facility] is to take. Patient was found to have altered mental status today and was found slumped to one side with poor respirations. EMS was called and patient was noted to have O2 sats in the 60s. She was transported to the emergency room where she was placed on BiPAP for respiratory distress with hypoxic respiratory failure. She was also noted to be hypertensive on arrival with systolic blood pressure in the 200s. Patient was also found to have a sodium of 118. I was contacted by ER physician and accepted patient for admission to the ICU. When I evaluated the patient in the ER she was on BiPAP with full facemask. History was obtained by discussion with patient's granddaughter was at the bedside. Patient was much more awake at this time and trying to communicate however in view of BiPAP requirement was difficult to communicate with. She denied any chest pain at the time. Patient has chronic diarrhea since her colon surgery in 2003. Per the granddaughter she was doing well till about 3 months ago when she started having significant weight loss and poor by mouth intake possibly related to esophageal stricture and the fact that she was taking care of her sick family member at home. She has been advised a PEG tube per the granddaughter because of her poor nutritional status and poor by mouth intake. She has had problems with hyponatremia off and on for a while. Patient's granddaughter is very concerned about her poor nutritional status. 02/05: Tolerating nasal cannula. Underwent PEG tube placement by IR today. Sodium 122. 02/06 No events overnight. s/p PEG tube placement yesterday. Sodium level 131 this morning 02/07 No events overnight. On 50% VM with good sats. 02/08 No events overnight. Afebrile . Off BIPAP. 02/09 Patient is on BIPAP 02/03 with 45% FIO2> Afebrile. 02/10 Patient was intubated early this morning for acute hypercapnic resp acidosis. Afebrile. 02/11 No events overnight. Patient remains intubated. Afebrile. 02/12 Patient remains intubated and on Precedex drip for sedation. Afebrile. 02/13 Patient was extubated yesterday and reintubated late afternoon for acute resp acidosis. afebrile. 02/14: remains intubated. appears very weak. long conversation with granddaughter and medical decision-maker at bedside. likely will require tracheostomy given repeat re-intubations and chronic debilitation. granddaughter requests we wait until thursday or thursday, and requests it be done in the OR and not at bedside. 02/15: wake and more alert. however, only tolerated 10 minutes of CPAP before becoming tachypneic and failing. gen surg consulted for trach: family requests OR trach due to concerns over infection risk at bedside. I counseled patient's family that there was no increased risk of infection, and the trachea is inherently an unsterile environment with endotracheal tube in place, but family insists on OR trach. hypernatremia slightly worse despite increasing free water. Objective Vital Signs Date Time Temp Pulse Resp B/P (MAP) Pulse Ox O2 Delivery O2 Flow Rate FiO2 02/15/17 14:00 69 02/15/17 13:03 100 35 02/15/17 12:00 98.1 16 105/53 (70) 02/14/17 23:05 10.00 02/12/17 14:40 Nasal Cannula Intake and Output 02/15/17 02/15/17 02/16/17 08:00 16:00 00:00 Intake Total 765.6 ml Output Total 1100 ml Balance -334.4 ml Result Diagram: 02/14/1752102/14/17521 Imaging Last Impressions Chest X-Ray 02/12/17 0000 Signed Impressions: Service Date/Time: January 18:13 - CONCLUSION: 1. Endotracheal tube tip remains in proximal right mainstem bronchus and should be withdrawn about 2- 3 cm. 2. There is basilar airspace disease, left greater than right with small effusions. Candido Garay MD Gastrostomy Tube Placement 02/05/17 0000 Signed Impressions: Service Date/Time: January 16:47 - CONCLUSION: Uncomplicated gastrostomy tube placement as above. Jorje Josue MD Lower Extremity Ultrasound 02/04/17 0000 Signed Impressions: Service Date/Time: Saturday, February 04, 2017 21:13 - CONCLUSION: 1. No evidence of deep venous thrombosis within the lower extremities. 2. Popliteal cyst on the left measuring 2.2 x 1.5 x 0.9 cm. Julian Mcmahan MD Head CT 02/04/17 0000 Signed Impressions: Service Date/Time: Saturday, February 04, 2017 17:50 - CONCLUSION: 1. No acute intracranial abnormality. 2. Tiny fluid level within the right maxillary sinus. Julian Mcmahan MD CT Angiography 02/04/17 0000 Signed Impressions: Service Date/Time: Saturday, February 04, 2017 17:54 - CONCLUSION: 1. No evidence of pulmonary embolism. 2. Bibasilar alveolar consolidations as well as scattered perihilar patchy opacities suggestive of probable pneumonia. Clinical correlation is recommended. 3. 1.7 cm right thyroid nodule. Julian Mcmahan MD Abdomen X-Ray 02/04/17 0000 Signed Impressions: Service Date/Time: January 05:52 - CONCLUSION: Interval placement of nasogastric tube with the tip in the left mainstem bronchus. Caesar Ramos MD Objective Remarks GENERAL: frail elderly female, lying in bed, intubated. SKIN: Warm and dry. HEAD: Normocephalic. EYES: No scleral icterus. No injection or drainage. NECK: trachea midline. No JVD CARDIOVASCULAR: normal rate, regular rhythm. appears sinus by tele. RESPIRATORY: PRVC mode. intubated. full support. peep 5. GASTROINTESTINAL: Abdomen soft, non-tender, nondistended. no guarding. MUSCULOSKELETAL: No cyanosis, or edema. Neuro: RASS -1. follows commands. moves all extremities. A/P Assessment and Plan Assessment: 71yF with at least a 3 month chronic course of failure to thrive and weight loss, esophageal stricture, and now recurrent hypoxic and hypercarbic respiratory failure requiring multiple intubations. She needs aggressive pulmonary rehab in an LTAC type facility. consult general surgery for trach. off pathway. Plan: Neuro: Acute metabolic encephalopathy - precedex for goal RASS -2. daily sedation vacations family have asked that we avoid fentanyl, versed, and propofol because in their past experience, she has reacted poorly to these. they request precedex only. CV: Monitor HR and BP keep MAP>65mmHg Pulm: Recurrent acute hypercarbic and hypoxic respiratory failure likely secondary to deconditioning and weakness. likely also large component of silent or overt aspiration and inability to control secretions. Continue with vent support keep sat >92% Bronchodilators. On solumedrol 40mg Q12, ICU vent bundle. CT chest with no evidence of PE and shows bibasilar infiltrates concerning for recurrent aspiration pneumonia Pulm is following continue daily SBTs. failed today after 10 mins for tachypnea. consult general surgery for trach GI/liver: Failure to thrive Hypernatremia Free water deficit Chronic diarrhea History of esophageal stricture status post recent esophageal dilation History of colon cancer Acute protein calorie malnutrition - severe s/p PEG tube placement by IR 02/05 Continue tube feeds-Jevity 1.5 @ 45ml/hr GI involved. daily bmp free water 300mL po q4h add d5w @ 42 mL/hr. Renal/: Acute intravascular volume overload Metabolic alkalosis Monitor renal function, I/O's, electrolytes replacement as needed. On Free water 250ml Q6, monitor sodium level. continue forced diuresis. diamox 500mg iv q12h. ID: Healthcare Associated Pneumonia Continue Cefepime and azithromycin. ID following. Endocrine: Hyperglycemia of Critical Illness SSI for glycemic control Levemir 5u Q12 Heme-onc: Anemia secondary to chronic disease Monitor CBC does not meet transfusion criteria. Prophylaxis: PPI/SCDs. Subcutaneous Lovenox. Palliative care is following Waldo Luke MD Feb 15, 2017 14:27
[2017-02-15] MEDS: DEXMEDETOMIDINE INJ 400 MCG in SODIUM CHLORIDE 0.9% INJ 96 ML IV PRN (15:23)
--- NOTE | 2017-02-15 16:12 | PD.CONS ---
HPI Service General Surgery Consult Requested By Dr. Luke Reason for Consult Tracheostomy Primary Care Physician Unknown History of Present Illness 71 yo F admitted for respiratory failure on 02/10 and subsequently intubated on the 02/12. She was extubated a few days later but required re-intubation. Options have been discussed with the family and they desire to proceed with tracheostomy placement. Review of Systems ROS Limitations: Clinical Condition, Intubated Past Family Social History Past Medical History Colon cancer s/p resection and chemotherapy 2003 Esophageal stricture with dysphagia, PEG in place Pneumonia Protein calorie malnutrition Past Surgical History Partial colectomy Reported Medications inpatient medications reviewed, see list Allergies: Coded Allergies: Penicillins (Verified Allergy, Unknown, 02/04/17) Active Ordered Medications Current Medications Medications (Trade) Dose Ordered Sig/Celine Route Start Time Stop Time Status Last Admin (NS Flush) 2 ml UNSCH PRN IV FLUSH 02/04/17 13:15 (NS Flush) 2 ml BID IV FLUSH 02/04/17 21:00 02/15/17 08:08 (Duoneb Neb) 1 ampule Q4HR NEB PRN INH 02/04/17 14:00 02/05/17 17:35 (Peridex 0.12% Liq) 15 ml BID@08,20 MT 02/04/17 20:00 02/15/17 08:00 Miscellaneous Information 1 Q361D XX 02/04/17 13:15 (Chlorhexidine 2% Cloth) Taper DAILY@04 TOP 02/05/17 04:00 02/01/18 03:59 02/13/17 00:04 (Chlorhexidine 2% Cloth) 3 pack UNSCH PRN TOP 02/04/17 13:15 (Trandate Inj) 10 mg Q2HR PRN IV PUSH 02/04/17 13:30 (Lovenox Inj) 40 mg Q24H SQ 02/04/17 20:00 02/14/17 20:42 Potassium Chloride 100 ml @ 50 mls/hr Q2H PRN IV 02/06/17 16:00 Potassium Chloride 100 ml @ 50 mls/hr Q2H PRN IV 02/06/17 16:00 02/11/17 11:32 (K-Lyte Cl Eff) 50 meq UNSCH PRN PO 02/06/17 16:00 Potassium Chloride 100 ml @ 25 mls/hr UNSCH PRN IV 02/06/17 16:00 Potassium Chloride 100 ml @ 50 mls/hr Q2H PRN IV 02/06/17 16:00 Magnesium Sulfate 4 gm/Sodium Chloride 100 ml @ 50 mls/hr UNSCH PRN IV 02/06/17 16:00 (Mag-Ox) 800 mg UNSCH PRN PO 02/06/17 16:00 02/07/17 12:20 Magnesium Sulfate 2 gm/Sodium Chloride 100 ml @ 50 mls/hr UNSCH PRN IV 02/06/17 16:00 (K-Phos) 2,000 mg Q4H PRN PO 02/06/17 16:00 Sodium Phosphate 30 mmol/Sodium Chloride 250 ml @ 42 mls/hr UNSCH PRN IV 02/06/17 16:00 02/08/17 08:46 (K-Phos) 2,000 mg UNSCH PRN PO/TUBE 02/06/17 16:00 Potassium Phosphate 30 mmol/ Sodium Chloride 260 ml @ 42 mls/hr UNSCH PRN IV 02/06/17 16:00 02/11/17 14:36 Acetaminophen 100 ml @ 400 mls/hr Q6H PRN IV 02/06/17 21:00 02/07/17 04:46 (Tylenol 650 Mg/ 20 ml Liq) 650 mg Q6H PRN PO 02/09/17 15:30 (SoluMEDROL INJ) 40 mg Q12HR IV PUSH 02/10/17 21:00 02/15/17 08:07 (D50w (Vial) Inj) 50 ml UNSCH PRN IV PUSH 02/10/17 16:15 02/14/17 23:44 (Glucagon Inj) 1 mg UNSCH PRN OTHER 02/10/17 16:15 (NovoLIN R SUPPLEMENTAL SCALE) 1 Q4HR SQ 02/10/17 16:15 02/15/17 08:08 Azithromycin 500 mg/Sodium Chloride 250 ml @ 250 mls/hr Q24H IV 02/10/17 18:00 02/14/17 16:11 (Xanax) 0.5 mg Q6H PRN PO 02/10/17 19:00 02/15/17 06:39 (Levemir Inj) 5 units Q12HR SQ 02/11/17 10:15 02/15/17 08:09 Fentanyl Citrate 250 ml @ 5 mls/hr TITRATE PRN IV 02/12/17 17:30 Dexmedetomidine HCl 400 mcg/ Sodium Chloride 100 ml @ 2.05 mls/hr TITRATE PRN IV 02/13/17 17:30 02/15/17 15:23 (Duoneb Neb) 1 ampule Q4HR NEB NEB 02/14/17 16:00 02/15/17 15:11 (Free Water) 300 ml Q4HR G-TUBE 02/14/17 16:00 02/15/17 12:00 (Protonix) 40 mg DAILY PO 02/15/17 09:00 02/15/17 08:07 Cefepime HCl 2000 mg/Sodium Chloride 100 ml @ 200 mls/hr Q8H IV 02/15/17 14:00 02/15/17 12:30 (Diamox Inj) 500 mg Q8H IV PUSH 02/15/17 13:00 02/15/17 12:29 (Lasix Inj) 40 mg BID@09,18 IV PUSH 02/15/17 09:00 02/15/17 10:05 Dextrose 1,000 ml @ 42 mls/hr [id number] IV 02/15/17 11:15 02/15/17 12:30 Family History Noncontributory Social History No tobacco use Physical Exam Vital Signs Vital Signs Date Time Temp Pulse Resp B/P (MAP) Pulse Ox O2 Delivery O2 Flow Rate FiO2 02/15/17 14:00 69 02/15/17 13:03 100 35 02/15/17 12:00 66 02/15/17 12:00 35 02/15/17 12:00 98.1 66 16 105/53 (70) 100 02/15/17 10:00 65 02/15/17 09:56 99 35 02/15/17 08:00 97.7 97 16 97/51 (66) 98 02/15/17 08:00 35 02/15/17 08:00 63 02/15/17 07:48 100 35 02/15/17 06:00 65 02/15/17 05:02 98 35 02/15/17 04:00 97.9 56 16 109/60 (76) 98 02/15/17 04:00 35 02/15/17 04:00 56 02/15/17 02:00 64 02/15/17 00:46 100 35 02/15/17 00:00 35 02/15/17 00:00 67 02/15/17 00:00 98.0 67 18 107/53 (71) 100 02/14/17 23:05 100 10.00 02/14/17 22:00 68 02/14/17 21:15 97 35 02/14/17 20:00 97.8 67 16 110/53 (72) 98 02/14/17 20:00 35 02/14/17 20:00 67 02/14/17 18:00 72 02/14/17 17:22 100 35 Physical Exam GENERAL: Thin, frail, intubated, on precedex drip, bed in sitting position and she is awake and making eye contact, some communicative gestures HEAD: Normocephalic. Atraumatic. EYES: Pupils equal round and reactive to light bilaterally. No scleral icterus. ENT: orotracheally intubated NECK: Trachea midline and easily palpable. no scars. CHEST: ventilated 35% FIO2 CARDIOVASCULAR: Regular rate and rhythm. SKIN: Warm, dry, nonjaundiced. Laboratory Date/Time Source Procedure Growth Status 02/04/17 11:35 Blood Peripheral Aerobic Blood Culture - Final NO GROWTH IN 5 DAYS Complete 02/04/17 11:35 Blood Peripheral Anaerobic Blood Culture - Final NO GROWTH IN 5 DAYS Complete 02/14/17 12:24 Sputum Endotracheal Gram Stain - Final Resulted 02/14/17 12:24 Sputum Endotracheal Sputum Culture - Preliminary NO GROWTH IN 24 HOURS. Resulted Result Diagram: 02/14/1752102/14/17521 Assessment and Plan Assessment and Plan 71 yo F with respiratory failure in need of tracheostomy. Plan tracheostomy at bedside tomorrow afternoon if ok with patient and her decision maker. Family has requested this be performed in OR. I recommend bedside as there is no known increase in infection risk especially considering airway is not sterile. Will check labs in am as she has been somewhat thrombocytopenic. NPO after midnight. Hold lovenox. D/w Dr. Luke. Isidoro,Neel KERN Feb 15, 2017 16:12
[2017-02-15] MEDS: AZITHROMYCIN INJ 500 MG in SODIUM CHLOR 0.9% 250 ML INJ 250 ML IV SCH (16:44)
[2017-02-15] MEDS: ENOXAPARIN SODIUM 40 MG/0.4 ML SYRINGE SQ SCH (20:46)
[2017-02-16] VITALS (19 sets, daily range): BP systolic 98–133; BP diastolic 53–68; PULSE 63–87; RESP 16–22; TEMP 98–98.8; O2SAT 98–100
[2017-02-16] MEDS: RESP: ALBUTEROL 2.5 MG/IPRATROPIUM 0.5 MG NEB (SCH) NEB ×6 (03:17→23:10)
[2017-02-16] MEDS: FREE WATER G-TUBE SCH ×5 (04:00→20:00)
[2017-02-16] MEDS: CHLORHEXIDINE GLUCONATE 2 % 1 PACK (2 CLOTHS) TOP SCH (04:00)
[2017-02-16] MEDS: INSULIN NovoLIN REGULAR SUPPLEMENTAL SCALE SQ SCH ×5 (04:00→20:00)
[2017-02-16 05:16] LABS: HEMATOCRIT 26.3 % (35.0-46.0); INTERNATIONAL NORMALIZED RATIO 1.1 RATIO; MEAN CELL VOLUME 88.6 FL (80.0-100.0); MEAN CORPUSCULAR HEMOGLOBIN 30.2 PG (27.0-34.0); MEAN PLATELET VOLUME 9.5 FL (7.0-11.0); PLATELET COUNT 87 TH/MM3 (150-450); PROTHROMBIN TIME - PATIENT 10.8 SEC (9.8-11.6); RED BLOOD COUNT 2.97 MIL/MM3 (4.00-5.30); RED CELL DISTRIBUTION WIDTH 16.2 % (11.6-17.2); WHITE BLOOD COUNT 9.6 TH/MM3 (4.0-11.0)
[2017-02-16] MEDS: CEFEPIME INJ 2,000 MG in SODIUM CHLORIDE 0.9% INJ 100 ML IV SCH ×2 (05:46→13:23)
[2017-02-16] MEDS: ALPRAZolam 0.5 MG TAB PO PRN ×2 (06:30→14:14)
[2017-02-16] MEDS: CHLORHEXIDINE 0.12% (ORAL KIT) 15 ML CUP MT SCH ×2 (08:00→20:00)
[2017-02-16] MEDS: FUROSEMIDE 40 MG/4 ML VIAL IV PUSH SCH (08:54)
[2017-02-16] MEDS: PANTOPRAZOLE SOD 40 MG DELAYED RELEASE TAB PO SCH (08:55)
[2017-02-16] MEDS: INSULIN DETEMIR 100 UNITS/ML VIAL SQ SCH ×2 (08:55→20:05)
[2017-02-16] MEDS: methylPREDNISolone SOD SUCC 40 MG/1 ML VIAL IV PUSH SCH (08:55)
[2017-02-16] MEDS: SODIUM CHLORIDE 0.9% FLUSH 10 ML FLUSH IV FLUSH SCH ×2 (08:56→20:07)
[2017-02-16] MEDS: DEXTROSE 5% IN WATE 1000ML INJ 1,000 ML IV SCH ×2 (11:04→17:50)
[2017-02-16] MEDS ORDERED: CISATRACURIUM BESYLATE 200 MG/20 ML VIAL IV ONE (11:15)
[2017-02-16] MEDS ORDERED: TERBUTALINE INJ 1 MG/ML AMP SQ PRN (11:15)
[2017-02-16] MEDS ORDERED: PHENYLEPHRINE INJ 40 MG in DEXTROSE 5% IN WATE 500 ML INJ 496 ML IV PRN ×2 (11:15)
[2017-02-16] MEDS ORDERED: MIDAZOLAM HCL 5 MG/5 ML VIAL IV PUSH ONE (11:45)
[2017-02-16] MEDS ORDERED: METOLAZONE 2.5 MG TAB PO ONE (11:45)
[2017-02-16] MEDS ORDERED: CISATRACURIUM BESYLATE 20 MG/10 ML VIAL IV ONE (12:00)
--- NOTE | 2017-02-16 12:35 | PD.PROCEDR ---
Procedure Note Procedure EBL: 5 cc Procedure in detail: The patient remained in his intensive care unit bed. He was placed in supine position with the neck slightly hyperextended. The patient was administered sedative and paralytic medications per Dr. Luke. The anterior neck was prepped and draped in usual sterile fashion. A 1 cm incision was made about 1 fingerbreadth superior to the sternal notch. Minimal blunt dissection was carried out. The bronchoscope was inserted down the endotracheal tube which was withdrawn past the site of the anticipated entry into the trachea. The large-bore needle and catheter were inserted through the anterior trachea and there was air aspirated into the syringe. The wire fed easily and this was also visualized via the bronchoscope. The tract was then serially dilated with the punch dilator and the Blue Rhino dilator. The Shiley #8 tracheostomy tube with guide was placed over the wire and easily entered the trachea. This was also visualized bronchoscopically. The bronchoscope was inserted down the trach tube and the position again confirmed. The cuff was inflated and the apparatus switched to the trach tube. There was adequate tidal volumes. The trach was sutured in place with 4 separate 2-0 Prolene sutures. A dressing and trach collar was applied. The patient tolerated procedure well and remained in his intensive care unit bed. Neel Chaudhry MD Feb 16, 2017 12:35
--- NOTE | 2017-02-16 14:17 | HHI.CCPN ---
Subjective Remarks/Hospital Course 02/04: 71-year-old female with a medical history significant for colon cancer in 2003 for which she underwent partial colon resection and chemotherapy, esophageal stricture with significant weight loss due to poor by mouth intake for which she was hospitalized in [place] in November 2016 for 2 weeks treated for pneumonia and subsequently evaluated for dysphagia and was found to have a sufficient stricture for which she was transferred to [facility] in [place] and underwent esophageal dilatation and was subsequently discharged 2 weeks later on a pured diet. Patient moved to [place] with her granddaughter and a few beats VAC was admitted to [facility] for worsening shortness of breath and was diagnosed with a pneumonia, hyponatremia. She was treated with antibiotics and subsequently discharged home however the following day had to be readmitted at [facility] for unresolved shortness of breath where she was hospitalized for a week and subsequently discharged to skilled nursing 3 days prior to this admission. Patient's by mouth intake has been poor since her discharge 3 days back according to her granddaughter as the pured diet at the skilled nursing is to take. Patient was found to have altered mental status today and was found slumped to one side with poor respirations. EMS was called and patient was noted to have O2 sats in the 60s. She was transported to the emergency room where she was placed on BiPAP for respiratory distress with hypoxic respiratory failure. She was also noted to be hypertensive on arrival with systolic blood pressure in the 200s. Patient was also found to have a sodium of 118. I was contacted by ER physician and accepted patient for admission to the ICU. When I evaluated the patient in the ER she was on BiPAP with full facemask. History was obtained by discussion with patient's granddaughter was at the bedside. Patient was much more awake at this time and trying to communicate however in view of BiPAP requirement was difficult to communicate with. She denied any chest pain at the time. Patient has chronic diarrhea since her colon surgery in 2003. Per the granddaughter she was doing well till about 3 months ago when she started having significant weight loss and poor by mouth intake possibly related to esophageal stricture and the fact that she was taking care of her sick family member at home. She has been advised a PEG tube per the granddaughter because of her poor nutritional status and poor by mouth intake. She has had problems with hyponatremia off and on for a while. Patient's granddaughter is very concerned about her poor nutritional status. 02/05: Tolerating nasal cannula. Underwent PEG tube placement by IR today. Sodium 122. 02/06 No events overnight. s/p PEG tube placement yesterday. Sodium level 131 this morning 02/07 No events overnight. On 50% VM with good sats. 02/08 No events overnight. Afebrile . Off BIPAP. 02/09 Patient is on BIPAP 02/03 with 45% FIO2> Afebrile. 02/10 Patient was intubated early this morning for acute hypercapnic resp acidosis. Afebrile. 02/11 No events overnight. Patient remains intubated. Afebrile. 02/12 Patient remains intubated and on Precedex drip for sedation. Afebrile. 02/13 Patient was extubated yesterday and reintubated late afternoon for acute resp acidosis. afebrile. 02/14: remains intubated. appears very weak. long conversation with granddaughter and medical decision-maker at bedside. likely will require tracheostomy given repeat re-intubations and chronic debilitation. granddaughter requests we wait until thursday or thursday, and requests it be done in the OR and not at bedside. 02/15: wake and more alert. however, only tolerated 10 minutes of CPAP before becoming tachypneic and failing. gen surg consulted for trach: family requests OR trach due to concerns over infection risk at bedside. I counseled patient's family that there was no increased risk of infection, and the trachea is inherently an unsterile environment with endotracheal tube in place, but family insists on OR trach. hypernatremia slightly worse despite increasing free water. 02/16: still awake and alert. failed CPAP again today. plan for trach today. Objective Vital Signs Date Time Temp Pulse Resp B/P (MAP) Pulse Ox O2 Delivery O2 Flow Rate FiO2 02/16/17 12:15 100 100 02/16/17 10:00 64 02/16/17 08:00 98.7 16 98/53 (68) 02/14/17 23:05 10.00 02/12/17 14:40 Nasal Cannula Intake and Output 02/16/17 02/16/17 02/16/17 07:59 15:59 23:59 Intake Total 1384 ml Output Total 650 ml Balance 734 ml Result Diagram: 02/16/17 0410 02/14/17 0522 Other Results Microbiology Date/Time Source Procedure Growth Status 02/14/17 12:24 Sputum Endotracheal Gram Stain - Final Complete 02/14/17 12:24 Sputum Endotracheal Sputum Culture - Final RARE GROWTH NORMAL RESPIRATORY RADHA Complete Imaging Last Impressions Chest X-Ray 02/12/17 0000 Signed Impressions: Service Date/Time: January 18:13 - CONCLUSION: 1. Endotracheal tube tip remains in proximal right mainstem bronchus and should be withdrawn about 2- 3 cm. 2. There is basilar airspace disease, left greater than right with small effusions. Candido Garay MD Gastrostomy Tube Placement 02/05/17 0000 Signed Impressions: Service Date/Time: January 16:47 - CONCLUSION: Uncomplicated gastrostomy tube placement as above. Jorje Josue MD Lower Extremity Ultrasound 02/04/17 0000 Signed Impressions: Service Date/Time: Saturday, February 04, 2017 21:13 - CONCLUSION: 1. No evidence of deep venous thrombosis within the lower extremities. 2. Popliteal cyst on the left measuring 2.2 x 1.5 x 0.9 cm. Julian Mcmahan MD Head CT 02/04/17 0000 Signed Impressions: Service Date/Time: Saturday, February 04, 2017 17:50 - CONCLUSION: 1. No acute intracranial abnormality. 2. Tiny fluid level within the right maxillary sinus. Julian Mcmahan MD CT Angiography 02/04/17 0000 Signed Impressions: Service Date/Time: Saturday, February 04, 2017 17:54 - CONCLUSION: 1. No evidence of pulmonary embolism. 2. Bibasilar alveolar consolidations as well as scattered perihilar patchy opacities suggestive of probable pneumonia. Clinical correlation is recommended. 3. 1.7 cm right thyroid nodule. Julian Mcmahan MD Abdomen X-Ray 02/04/17 0000 Signed Impressions: Service Date/Time: January 05:52 - CONCLUSION: Interval placement of nasogastric tube with the tip in the left mainstem bronchus. Caesar Ramos MD Objective Remarks GENERAL: frail elderly female, lying in bed, intubated. SKIN: Warm and dry. HEAD: Normocephalic. EYES: No scleral icterus. No injection or drainage. NECK: trachea midline. No JVD CARDIOVASCULAR: normal rate, regular rhythm. appears sinus by tele. RESPIRATORY: PRVC mode. intubated. full support. peep 5. GASTROINTESTINAL: Abdomen soft, non-tender, nondistended. no guarding. MUSCULOSKELETAL: No cyanosis, or edema. Neuro: RASS -1. follows commands. moves all extremities. A/P Assessment and Plan Assessment: 71yF with at least a 3 month chronic course of failure to thrive and weight loss, esophageal stricture, and now recurrent hypoxic and hypercarbic respiratory failure requiring multiple intubations. She needs aggressive pulmonary rehab in an LTAC type facility. consult general surgery for trach. off pathway. Plan: Neuro: Acute metabolic encephalopathy - precedex for goal RASS -2. daily sedation vacations family have asked that we avoid fentanyl, versed, and propofol because in their past experience, she has reacted poorly to these. they request precedex only. CV: Monitor HR and BP keep MAP>65mmHg Pulm: Recurrent acute hypercarbic and hypoxic respiratory failure likely secondary to deconditioning and weakness. likely also large component of silent or overt aspiration and inability to control secretions. Continue with vent support keep sat >92% Bronchodilators. ICU vent bundle. CT chest with no evidence of PE and shows bibasilar infiltrates concerning for recurrent aspiration pneumonia Pulm is following continue daily SBTs. continuing to fail daily. consult general surgery for trach d/c methylprednisolone and start prednisone taper. GI/liver: Failure to thrive Hypernatremia Free water deficit Chronic diarrhea History of esophageal stricture status post recent esophageal dilation History of colon cancer Acute protein calorie malnutrition - severe s/p PEG tube placement by IR 02/05 Continue tube feeds-Jevity 1.5 @ 45ml/hr GI involved. daily bmp free water 300mL po q4h d5w @ 42 mL/hr. Renal/: Acute intravascular volume overload Metabolic alkalosis Monitor renal function, I/O's, electrolytes replacement as needed. continue forced diuresis. diamox 500mg iv q12h. ID: Healthcare Associated Pneumonia Continue Cefepime and azithromycin. ID following. Endocrine: Hyperglycemia of Critical Illness SSI for glycemic control Levemir 5u Q12 Heme-onc: Anemia secondary to chronic disease Monitor CBC does not meet transfusion criteria. Prophylaxis: PPI/SCDs. Subcutaneous Lovenox. Palliative care is following Waldo Luke MD Feb 16, 2017 14:17
--- NOTE | 2017-02-16 14:19 | PD.PROCEDR ---
Procedure Note Procedure Procedure: Diagnostic Fiberoptic Bronchoscopy Diagnosis: Subacute respiratory failure Indications: And need for percutaneous tracheostomy. Consent: Obtained Anesthesia: Versed 5 mg IV, cisatracurium 20 mg IV Description of the Procedure: The patient was sedated and mechanically ventilated. The patient was placed on 100% FIO2 and a volume control mode of ventilation. The fiberoptic bronchoscopy was inserted via 8.0 oral endotracheal tube. The trachea, right and left mainstem bronchi, and sub- segmental bronchi were evaluated. The endobronchial anatomy was normal. Findings: Small areas of erythema primarily surrounding the torri, likely secondary to Bautista suctioning. Trace secretions. Under direct bronchoscopic visualization, the needle, guidewire, serial dilators, and 8.0 Shiley trach were inserted into the lumen of the trachea. The tracheostomy was confirmed in the lumen of the trachea visually by bronchoscope prior to positive pressure ventilation. Please see separate procedure note for trach details. BAL samples: No samples were sent The patient tolerated the procedure well with no hemodynamic instability or hypoxia. There were no immediate complications noted. At the conclusion of the procedure, the patient was placed back on their pre-procedure ventilatory settings. There was minimal EBL. A chest x-ray has been ordered. I personally performed the procedure. Waldo Luke MD Feb 16, 2017 14:19
--- NOTE | 2017-02-16 16:41 | HHI.PR ---
Addendum to Inpatient Note Addendum Reason: Additional Documentation Additional Information ID - pt seen around 1500 - full note to follow Ness Lopez MD Feb 16, 2017 16:41
[2017-02-16] MEDS: AZITHROMYCIN INJ 500 MG in SODIUM CHLOR 0.9% 250 ML INJ 250 ML IV SCH (17:50)
[2017-02-16] MEDS: FUROSEMIDE 100 MG/10 ML VIAL IV PUSH SCH (17:52)
--- NOTE | 2017-02-16 19:50 | HHI.PR ---
Subjective Remarks 71 YOWF with VDRF,Bibasilar infilt Sedated with Fentanyl BP borderline gets anxious Grand Daughter at BS Had trach Off Precedex, more anxious Objective Vital Signs Vital Signs Date Time Temp Pulse Resp B/P (MAP) Pulse Ox O2 Delivery O2 Flow Rate FiO2 02/16/17 18:00 71 02/16/17 16:00 71 02/16/17 16:00 35 02/16/17 16:00 98.3 72 120/57 (78) 100 02/16/17 14:37 100 35 02/16/17 14:00 69 02/16/17 12:15 100 100 02/16/17 12:00 98.8 66 16 116/57 (76) 100 02/16/17 12:00 35 02/16/17 12:00 70 02/16/17 11:26 100 35 02/16/17 10:00 64 02/16/17 08:03 99 35 02/16/17 08:00 63 02/16/17 08:00 35 02/16/17 08:00 98.7 66 16 98/53 (68) 99 02/16/17 06:00 72 02/16/17 04:48 99 35 02/16/17 04:00 73 02/16/17 04:00 98.0 73 16 108/58 (75) 99 02/16/17 04:00 35 02/16/17 02:00 70 02/16/17 01:08 98 35 02/16/17 00:00 98.2 74 16 105/58 (74) 99 02/16/17 00:00 35 02/16/17 00:00 74 02/15/17 22:40 100 35 02/15/17 22:00 81 02/15/17 20:00 98.0 76 16 108/58 (75) 100 02/15/17 20:00 76 02/15/17 20:00 35 I/O 02/15/17 02/15/17 02/15/17 02/16/17 02/16/17 02/16/17 07:00 15:00 23:00 07:00 15:00 23:00 Intake Total 765.6 ml 1292.8 ml 1384 ml 600 ml Output Total 1100 ml 700 ml 650 ml 1750 ml Balance -334.4 ml 592.8 ml 734 ml -1150 ml Intake Oral 0 ml IV Total 125.6 ml 784.8 ml 544 ml Tube Feeding 240 ml 508 ml 240 ml Other 400 ml 600 ml 600 ml Output Urine Total 1100 ml 700 ml 650 ml 1750 ml # Bowel Movements 1 1 2 0 Result Diagram: 02/16/17 0410 02/14/17 0522 Objective Remarks GENERAL: Frail elderly female, on Vent SKIN: Warm and dry. HEAD: Normocephalic. EYES: No scleral icterus. No injection or drainage. NECK: Supple, trachea midline. No JVD or lymphadenopathy. CARDIOVASCULAR: Regular rate and rhythm without murmurs, gallops, or rubs. RESPIRATORY: Breath sounds equal bilaterally. No accessory muscle use. GASTROINTESTINAL: Abdomen soft, non-tender, nondistended. MUSCULOSKELETAL: No cyanosis, or edema. BACK: Nontender without obvious deformity. No CVA tenderness. A/P Assessment and Plan VDRF, s/p Trach 02/16 Bibasilar infilterates Hypotension Anxiety H/O Ca colon Weight loss PLAN: Dw pt's Grand daughter Cont Abx Vanco, Cefepime and Zithro IV Solumedrol Fentanyl for sedation Xanax 1 mg q 6 hrs Trach care Yusef Hernandez MD Feb 16, 2017 19:50
[2017-02-16] MEDS: ACETAMINOPHEN 650 MG/20.3 ML UDC PO PRN (20:03)
[2017-02-16] MEDS: ALPRAZolam 1 MG TAB PO PRN (20:04)
--- NOTE | 2017-02-16 20:12 | HHI.IDPN ---
Subjective Subjective Remarks pt is afebrile less secretions sputum purulent, clx negative no leukocytosis Antibiotics cefepime azithro Allergies: Coded Allergies: Penicillins (Verified Allergy, Unknown, 02/04/17) Objective . Vital Signs Date Time Temp Pulse Resp B/P (MAP) Pulse Ox O2 Delivery O2 Flow Rate FiO2 02/16/17 18:00 71 02/16/17 16:00 71 02/16/17 16:00 35 02/16/17 16:00 98.3 72 120/57 (78) 100 02/16/17 14:37 100 35 02/16/17 14:00 69 02/16/17 12:15 100 100 02/16/17 12:00 98.8 66 16 116/57 (76) 100 02/16/17 12:00 35 02/16/17 12:00 70 02/16/17 11:26 100 35 02/16/17 10:00 64 02/16/17 08:03 99 35 02/16/17 08:00 63 02/16/17 08:00 35 02/16/17 08:00 98.7 66 16 98/53 (68) 99 02/16/17 06:00 72 02/16/17 04:48 99 35 02/16/17 04:00 73 02/16/17 04:00 98.0 73 16 108/58 (75) 99 02/16/17 04:00 35 02/16/17 02:00 70 02/16/17 01:08 98 35 02/16/17 00:00 98.2 74 16 105/58 (74) 99 02/16/17 00:00 35 02/16/17 00:00 74 02/15/17 22:40 100 35 02/15/17 22:00 81 02/16/17 02/16/17 02/17/17 15:00 23:00 07:00 Intake Total 600 ml Output Total 1750 ml Balance -1150 ml Other 600 ml Output Urine Total 1750 ml # Bowel Movements 0 . Laboratory Tests Test 02/16/17 04:10 White Blood Count 9.6 TH/MM3 Red Blood Count 2.97 MIL/MM3 Hemoglobin 9.0 GM/DL Hematocrit 26.3 % Mean Corpuscular Volume 88.6 FL Mean Corpuscular Hemoglobin 30.2 PG Mean Corpuscular Hemoglobin Concent 34.0 % Red Cell Distribution Width 16.2 % Platelet Count 87 TH/MM3 Mean Platelet Volume 9.5 FL Laboratory Tests Test 02/16/17 17:45 Microbiology Date/Time Source Procedure Growth Status 02/14/17 12:24 Sputum Endotracheal Gram Stain - Final Complete 02/14/17 12:24 Sputum Endotracheal Sputum Culture - Final RARE GROWTH NORMAL RESPIRATORY RDAHA Complete Imaging Last Impressions Chest X-Ray 02/13/17 0000 Signed Impressions: Service Date/Time: Monday, February 13, 2017 09:59 - CONCLUSION: No significant change in the bilateral pulmonary infiltrates, left greater than right. Brett Persaud MD Gastrostomy Tube Placement 02/05/17 0000 Signed Impressions: Service Date/Time: January 16:47 - CONCLUSION: Uncomplicated gastrostomy tube placement as above. Jorje Josue MD Lower Extremity Ultrasound 02/04/17 0000 Signed Impressions: Service Date/Time: Saturday, February 04, 2017 21:13 - CONCLUSION: 1. No evidence of deep venous thrombosis within the lower extremities. 2. Popliteal cyst on the left measuring 2.2 x 1.5 x 0.9 cm. Julian Mcmahan MD Head CT 02/04/17 0000 Signed Impressions: Service Date/Time: Saturday, February 04, 2017 17:50 - CONCLUSION: 1. No acute intracranial abnormality. 2. Tiny fluid level within the right maxillary sinus. Julian Mcmahan MD CT Angiography 02/04/17 0000 Signed Impressions: Service Date/Time: Saturday, February 04, 2017 17:54 - CONCLUSION: 1. No evidence of pulmonary embolism. 2. Bibasilar alveolar consolidations as well as scattered perihilar patchy opacities suggestive of probable pneumonia. Clinical correlation is recommended. 3. 1.7 cm right thyroid nodule. Julian Mcmahan MD Abdomen X-Ray 02/04/17 0000 Signed Impressions: Service Date/Time: January 05:52 - CONCLUSION: Interval placement of nasogastric tube with the tip in the left mainstem bronchus. Caesar Ramos MD Last Impressions Abdomen/Pelvis CT 02/14/17 0000 Signed Impressions: Service Date/Time: Tuesday, February 14, 2017 23:14 - CONCLUSION: 1. Nonspecific small ascites with bilateral pleural effusions and body wall edema/anasarca. No abscess demonstrated. 2. Possible mass of the lower rectum and please correlate clinically. 3. Gastric feeding tube with tip in the lower body. 4. Sigmoid colon diverticulosis without perceptible acute inflammatory changes. 5. Cholelithiasis without evidence of cholecystitis or biliary obstruction. Phan Lomas MD Chest X-Ray 02/13/17 0000 Signed Impressions: Service Date/Time: Monday, February 13, 2017 09:59 - CONCLUSION: No significant change in the bilateral pulmonary infiltrates, left greater than right. Brett Persaud MD Gastrostomy Tube Placement 02/05/17 0000 Signed Impressions: Service Date/Time: January 16:47 - CONCLUSION: Uncomplicated gastrostomy tube placement as above. Jorje Josue MD Lower Extremity Ultrasound 02/04/17 0000 Signed Impressions: Service Date/Time: Saturday, February 04, 2017 21:13 - CONCLUSION: 1. No evidence of deep venous thrombosis within the lower extremities. 2. Popliteal cyst on the left measuring 2.2 x 1.5 x 0.9 cm. Julian Mcmahan MD Head CT 02/04/17 0000 Signed Impressions: Service Date/Time: Saturday, February 04, 2017 17:50 - CONCLUSION: 1. No acute intracranial abnormality. 2. Tiny fluid level within the right maxillary sinus. Julian Mcmahan MD CT Angiography 02/04/17 0000 Signed Impressions: Service Date/Time: Saturday, February 04, 2017 17:54 - CONCLUSION: 1. No evidence of pulmonary embolism. 2. Bibasilar alveolar consolidations as well as scattered perihilar patchy opacities suggestive of probable pneumonia. Clinical correlation is recommended. 3. 1.7 cm right thyroid nodule. Julian Mcmahan MD Abdomen X-Ray 02/04/17 0000 Signed Impressions: Service Date/Time: January 05:52 - CONCLUSION: Interval placement of nasogastric tube with the tip in the left mainstem bronchus. Caesar Ramos MD Physical Exam CONSTITUTIONAL/GENERAL: This is a poorly nourished patient, in no apparent distress. TUBES/LINES/DRAINS: SKIN: No jaundice, rashes, or lesions. Skin temperature appropriate. Not diaphoretic. EYES: Pupils equal and round and reactive. Extraocular motions intact. No scleral icterus. No injection or drainage. Fundi not examined. ENT: Hearing grossly normal. Nose without bleeding or purulent drainage. Throat without visible erythema, exudates, masses, or lesions. CARDIOVASCULAR: Regular rate and rhythm without murmurs, gallops, or rubs. No JVD. Peripheral pulses symmetric. RESPIRATORY/CHEST: Symmetric, unlabored respirations. Clear to auscultation. Breath sounds equal bilaterally. No wheezes, rales, or rhonchi. GASTROINTESTINAL: Abdomen soft, not tender or distended. No hepato-splenomegaly , or palpable masses. No guarding. Bowel sounds present. Rectal tube in place with liquid stool GENITOURINARY: Without palpable bladder distension. MUSCULOSKELETAL: Extremities without clubbing, cyanosis, or edema. No joint tenderness or effusion noted. No calf tenderness. No mottling or clubbing. PSYCHIATRIC: No obvious anxiety/depression. no apparent hallucinations or other psychotic thought process. Assessment & Plan Remarks PNA, culture neg Acute VDRF - recurrent intubation Diarrhea, abx associated - C.diff negative Abdominal pain, diffuse dc azithromycin dc cefepime repeat sputum clx CT abd/pel LFTs dw with Ness Williamson MD Feb 16, 2017 20:12
[2017-02-17] VITALS (17 sets, daily range): BP systolic 103–122; BP diastolic 57–61; PULSE 83–106; RESP 16–22; TEMP 97.5–98.6; O2SAT 99–100
[2017-02-17] MEDS: FUROSEMIDE 100 MG/10 ML VIAL IV PUSH SCH ×3 (01:41→17:00)
[2017-02-17] MEDS: ALPRAZolam 1 MG TAB PO PRN ×2 (01:42→10:44)
[2017-02-17] MEDS: ACETAMINOPHEN 650 MG/20.3 ML UDC PO PRN (01:42)
[2017-02-17] MEDS: RESP: ALBUTEROL 2.5 MG/IPRATROPIUM 0.5 MG NEB (SCH) NEB ×5 (03:27→20:35)
[2017-02-17] MEDS: FREE WATER G-TUBE SCH ×5 (04:00→16:00)
[2017-02-17] MEDS: CHLORHEXIDINE GLUCONATE 2 % 1 PACK (2 CLOTHS) TOP SCH (04:00)
[2017-02-17] MEDS: INSULIN NovoLIN REGULAR SUPPLEMENTAL SCALE SQ SCH ×6 (04:00→21:00)
[2017-02-17] MEDS: predniSONE 5 MG/5 ML CUP PO SCH (08:35)
[2017-02-17] MEDS: INSULIN DETEMIR 100 UNITS/ML VIAL SQ SCH ×2 (08:35→21:00)
[2017-02-17] MEDS: PANTOPRAZOLE SOD 40 MG DELAYED RELEASE TAB PO SCH (08:35)
[2017-02-17] MEDS: CHLORHEXIDINE 0.12% (ORAL KIT) 15 ML CUP MT SCH ×2 (08:36→20:00)
[2017-02-17] MEDS: SODIUM CHLORIDE 0.9% FLUSH 10 ML FLUSH IV FLUSH SCH ×2 (08:36→21:42)
[2017-02-17 15:28] LABS: HEMATOCRIT 31.6 % (35.0-46.0); HEMOGLOBIN 10.4 GM/DL (11.6-15.3); MEAN CELL VOLUME 85.5 FL (80.0-100.0); MEAN CORPUSCULAR HEMOGLOBIN 28.1 PG (27.0-34.0); MEAN CORPUSCULAR HGB CONC 32.9 % (32.0-36.0); PLATELET COUNT 136 TH/MM3 (150-450); RED BLOOD COUNT 3.69 MIL/MM3 (4.00-5.30); RED CELL DISTRIBUTION WIDTH 15.9 % (11.6-17.2); WHITE BLOOD COUNT 11.5 TH/MM3 (4.0-11.0)
[2017-02-17 15:54] LABS: BICARBONATE 30.7 MEQ/L (21.0-32.0); CALCIUM 7.6 MG/DL (8.5-10.1); CREATININE 0.87 MG/DL (0.50-1.00)
[2017-02-17] MEDS: POTASSIUM CHLORIDE 25 MEQ EFFERVESCENT TAB PO PRN (16:49)
--- NOTE | 2017-02-17 17:53 | HHI.PR ---
Addendum to Inpatient Note Additional Information pt seen today around 1500 full note to follow Ness Lopez MD Feb 17, 2017 17:53
[2017-02-17] MEDS ORDERED: POTASSIUM CHLORIDE 25 MEQ EFFERVESCENT TAB PO ONE (18:00)
--- NOTE | 2017-02-17 18:29 | HHI.CCPN ---
Subjective Remarks/Hospital Course 02/04: 71-year-old female with a medical history significant for colon cancer in 2003 for which she underwent partial colon resection and chemotherapy, esophageal stricture with significant weight loss due to poor by mouth intake for which she was hospitalized in [place] in November 2016 for 2 weeks treated for pneumonia and subsequently evaluated for dysphagia and was found to have a sufficient stricture for which she was transferred to [facility] in [place] and underwent esophageal dilatation and was subsequently discharged 2 weeks later on a pured diet. Patient moved to [place] with her granddaughter and a few beats VAC was admitted to [facility] [place] for worsening shortness of breath and was diagnosed with a pneumonia, hyponatremia. She was treated with antibiotics and subsequently discharged home however the following day had to be readmitted at [facility] for unresolved shortness of breath where she was hospitalized for a week and subsequently discharged to group home 3 days prior to this admission. Patient's by mouth intake has been poor since her discharge 3 days back according to her granddaughter as the pured diet at the group home is to take. Patient was found to have altered mental status today and was found slumped to one side with poor respirations. EMS was called and patient was noted to have O2 sats in the 60s. She was transported to the emergency room where she was placed on BiPAP for respiratory distress with hypoxic respiratory failure. She was also noted to be hypertensive on arrival with systolic blood pressure in the 200s. Patient was also found to have a sodium of 118. I was contacted by ER physician and accepted patient for admission to the ICU. When I evaluated the patient in the ER she was on BiPAP with full facemask. History was obtained by discussion with patient's granddaughter was at the bedside. Patient was much more awake at this time and trying to communicate however in view of BiPAP requirement was difficult to communicate with. She denied any chest pain at the time. Patient has chronic diarrhea since her colon surgery in 2003. Per the granddaughter she was doing well till about 3 months ago when she started having significant weight loss and poor by mouth intake possibly related to esophageal stricture and the fact that she was taking care of her sick family member at home. She has been advised a PEG tube per the granddaughter because of her poor nutritional status and poor by mouth intake. She has had problems with hyponatremia off and on for a while. Patient's granddaughter is very concerned about her poor nutritional status. 02/05: Tolerating nasal cannula. Underwent PEG tube placement by IR today. Sodium 122. 02/06 No events overnight. s/p PEG tube placement yesterday. Sodium level 131 this morning 02/07 No events overnight. On 50% VM with good sats. 02/08 No events overnight. Afebrile . Off BIPAP. 02/09 Patient is on BIPAP 02/03 with 45% FIO2> Afebrile. 02/10 Patient was intubated early this morning for acute hypercapnic resp acidosis. Afebrile. 02/11 No events overnight. Patient remains intubated. Afebrile. 02/12 Patient remains intubated and on Precedex drip for sedation. Afebrile. 02/13 Patient was extubated yesterday and reintubated late afternoon for acute resp acidosis. afebrile. 02/14: remains intubated. appears very weak. long conversation with granddaughter and medical decision-maker at bedside. likely will require tracheostomy given repeat re-intubations and chronic debilitation. granddaughter requests we wait until thursday or thursday, and requests it be done in the OR and not at bedside. 02/15: wake and more alert. however, only tolerated 10 minutes of CPAP before becoming tachypneic and failing. gen surg consulted for trach: family requests OR trach due to concerns over infection risk at bedside. I counseled patient's family that there was no increased risk of infection, and the trachea is inherently an unsterile environment with endotracheal tube in place, but family insists on OR trach. hypernatremia slightly worse despite increasing free water. 02/16: still awake and alert. failed CPAP again today. plan for trach today. 02/17: s/p trach yesterday. doing well. still failing CPAP for weakness and tachypnea. needs LTAC. hyponatremia and hypokalemia: kcl replacement and holding free water. Objective Vital Signs Date Time Temp Pulse Resp B/P (MAP) Pulse Ox O2 Delivery O2 Flow Rate FiO2 02/17/17 18:00 92 02/17/17 16:00 35 02/17/17 16:00 97.5 122/60 (80) 100 02/17/17 12:00 22 02/14/17 23:05 10.00 Intake and Output 02/17/17 02/17/17 02/18/17 08:00 16:00 00:00 Intake Total 1802 ml Output Total 1900 ml Balance -98 ml Result Diagram: 02/17/17 1453 02/17/17 1453 Imaging Last Impressions Chest X-Ray 02/12/17 0000 Signed Impressions: Service Date/Time: January 18:13 - CONCLUSION: 1. Endotracheal tube tip remains in proximal right mainstem bronchus and should be withdrawn about 2- 3 cm. 2. There is basilar airspace disease, left greater than right with small effusions. Candido Garay MD Gastrostomy Tube Placement 02/05/17 0000 Signed Impressions: Service Date/Time: January 16:47 - CONCLUSION: Uncomplicated gastrostomy tube placement as above. Jorje Josue MD Lower Extremity Ultrasound 02/04/17 0000 Signed Impressions: Service Date/Time: Saturday, February 04, 2017 21:13 - CONCLUSION: 1. No evidence of deep venous thrombosis within the lower extremities. 2. Popliteal cyst on the left measuring 2.2 x 1.5 x 0.9 cm. Julian Mcmahan MD Head CT 02/04/17 0000 Signed Impressions: Service Date/Time: Saturday, February 04, 2017 17:50 - CONCLUSION: 1. No acute intracranial abnormality. 2. Tiny fluid level within the right maxillary sinus. Julian Mcmahan MD CT Angiography 02/04/17 0000 Signed Impressions: Service Date/Time: Saturday, February 04, 2017 17:54 - CONCLUSION: 1. No evidence of pulmonary embolism. 2. Bibasilar alveolar consolidations as well as scattered perihilar patchy opacities suggestive of probable pneumonia. Clinical correlation is recommended. 3. 1.7 cm right thyroid nodule. Julian Mcmahan MD Abdomen X-Ray 02/04/17 0000 Signed Impressions: Service Date/Time: January 05:52 - CONCLUSION: Interval placement of nasogastric tube with the tip in the left mainstem bronchus. Caesar Ramos MD Objective Remarks GENERAL: frail elderly female, lying in bed, trach in place SKIN: Warm and dry. HEAD: Normocephalic. EYES: No scleral icterus. No injection or drainage. NECK: trachea midline. No JVD. trach in place. CARDIOVASCULAR: normal rate, regular rhythm. appears sinus by tele. RESPIRATORY: PRVC mode. intubated. full support. peep 5. GASTROINTESTINAL: Abdomen soft, non-tender, nondistended. no guarding. MUSCULOSKELETAL: No cyanosis, or edema. Neuro: RASS -1. follows commands. moves all extremities. A/P Assessment and Plan Assessment: 71yF with at least a 3 month chronic course of failure to thrive and weight loss, esophageal stricture, and now recurrent hypoxic and hypercarbic respiratory failure requiring multiple intubations. She needs aggressive pulmonary rehab in an LTAC type facility. Plan: Neuro: Acute metabolic encephalopathy Anxiety Insomnia - precedex for goal RASS -2. daily sedation vacations family have asked that we avoid fentanyl, versed, and propofol because in their past experience, she has reacted poorly to these. they request precedex only. decrease xanax to 0.5mg po q6h prn (1mg dose caused oversedation) melatonin 5mg po qHS for sleep CV: Monitor HR and BP keep MAP>65mmHg Pulm: Recurrent acute hypercarbic and hypoxic respiratory failure likely secondary to deconditioning and weakness. likely also large component of silent or overt aspiration and inability to control secretions. Continue with vent support keep sat >92% Bronchodilators. ICU vent bundle. CT chest with no evidence of PE and shows bibasilar infiltrates concerning for recurrent aspiration pneumonia Pulm is following continue daily SBTs. continuing to fail daily. consult general surgery for trach prednisone taper. GI/liver: Failure to thrive Hypernatremia- resolved. Free water deficit- resolved. Chronic diarrhea History of esophageal stricture status post recent esophageal dilation History of colon cancer Acute protein calorie malnutrition - severe hyponatremia hypokalemia s/p PEG tube placement by IR 02/05 Continue tube feeds-Jevity 1.5 @ 45ml/hr GI involved. daily bmp hold free water ICU electrolyte protocol recheck electrolytes daily Renal/: Acute intravascular volume overload- improving. Metabolic alkalosis Monitor renal function, I/O's, electrolytes replacement as needed. continue forced diuresis. diamox 500mg iv q8h. ID: Healthcare Associated Pneumonia Continue Cefepime and azithromycin. ID following. Endocrine: Hyperglycemia of Critical Illness SSI for glycemic control Levemir 5u Q12 Heme-onc: Anemia secondary to chronic disease Monitor CBC does not meet transfusion criteria. Prophylaxis: PPI/SCDs. Subcutaneous Lovenox. Palliative care is following Waldo Luke MD Feb 17, 2017 18:29
--- NOTE | 2017-02-17 19:56 | HHI.PR ---
Subjective Remarks 71 YOWF with VDRF,Bibasilar infilt Sedated with Fentanyl BP borderline gets anxious Grand Daughter at BS Did't tolerate CPAP Objective Vital Signs Vital Signs Date Time Temp Pulse Resp B/P (MAP) Pulse Ox O2 Delivery O2 Flow Rate FiO2 02/17/17 18:00 92 02/17/17 16:00 35 02/17/17 16:00 95 02/17/17 16:00 97.5 83 122/60 (80) 100 02/17/17 15:47 100 35 02/17/17 14:00 85 02/17/17 12:00 83 02/17/17 12:00 35 02/17/17 12:00 97.9 83 22 110/57 (74) 100 02/17/17 11:51 100 35 02/17/17 10:00 93 02/17/17 08:00 98.3 96 120/58 (78) 100 02/17/17 08:00 90 02/17/17 08:00 35 02/17/17 07:58 100 35 02/17/17 06:00 102 02/17/17 04:00 106 02/17/17 04:00 35 02/17/17 04:00 98.4 106 16 103/57 (72) 99 02/17/17 02:00 89 02/17/17 01:07 100 35 02/17/17 00:00 98.3 85 115/61 (79) 100 02/17/17 00:00 35 02/17/17 00:00 85 02/16/17 22:00 87 02/16/17 20:35 100 35 02/16/17 20:00 35 02/16/17 20:00 78 02/16/17 20:00 98.2 78 22 133/68 (89) 100 I/O 02/16/17 02/16/17 02/16/17 02/17/17 02/17/17 02/17/17 06:59 14:59 22:59 06:59 14:59 22:59 Intake Total 1484 ml 600 ml 1802 ml 931 ml Output Total 650 ml 1750.0 ml 1900 ml 2300 ml Balance 834 ml -1150.0 ml -98 ml -1369 ml IV Total 644 ml 462 ml Tube Feeding 240 ml 440 ml 531 ml Other 600 ml 600 ml 900 ml 400 ml Output Urine Total 650 ml 1750 ml 1900 ml 2300 ml Stool Total 0 ml 0 ml Tube Feeding Residual Discard 0 ml 0 ml # Bowel Movements 2 0 Result Diagram: 02/17/17 1453 02/17/17 1453 Objective Remarks GENERAL: Frail elderly female, on Vent SKIN: Warm and dry. HEAD: Normocephalic. EYES: No scleral icterus. No injection or drainage. NECK: Supple, trachea midline. No JVD or lymphadenopathy. CARDIOVASCULAR: Regular rate and rhythm without murmurs, gallops, or rubs. RESPIRATORY: Breath sounds equal bilaterally. No accessory muscle use. GASTROINTESTINAL: Abdomen soft, non-tender, nondistended. MUSCULOSKELETAL: No cyanosis, or edema. BACK: Nontender without obvious deformity. No CVA tenderness. A/P Assessment and Plan VDRF, s/p Trach 02/16 Bibasilar infilterates Hypotension Anxiety H/O Ca colon Weight loss PLAN: Dw pt's Grand daughter Cont Abx Vanco, Cefepime and Zithro IV Solumedrol Fentanyl for sedation Xanax 0.5 mg q 6 hrs Trach care CPAP trial in AM Yusef Hernandez MD Feb 17, 2017 19:56
[2017-02-17] MEDS ORDERED: ALPRAZolam 1 MG TAB PO PRN (20:00)
[2017-02-17] MEDS: ALPRAZolam 0.5 MG TAB PO PRN (21:42)
[2017-02-17] MEDS: MELATONIN 5 MG TAB PO SCH (21:42)
--- NOTE | 2017-02-17 22:34 | HHI.IDPN ---
Subjective Subjective Remarks pt is afebrile on vent off abx Antibiotics stopped Allergies: Coded Allergies: Penicillins (Verified Allergy, Unknown, 02/04/17) Objective . Vital Signs Date Time Temp Pulse Resp B/P (MAP) Pulse Ox O2 Delivery O2 Flow Rate FiO2 02/17/17 20:35 100 30 02/17/17 18:00 92 02/17/17 16:00 35 02/17/17 16:00 95 02/17/17 16:00 97.5 83 122/60 (80) 100 02/17/17 15:47 100 35 02/17/17 14:00 85 02/17/17 12:00 83 02/17/17 12:00 35 02/17/17 12:00 97.9 83 22 110/57 (74) 100 02/17/17 11:51 100 35 02/17/17 10:00 93 02/17/17 08:00 98.3 96 120/58 (78) 100 02/17/17 08:00 90 02/17/17 08:00 35 02/17/17 07:58 100 35 02/17/17 06:00 102 02/17/17 04:00 106 02/17/17 04:00 35 02/17/17 04:00 98.4 106 16 103/57 (72) 99 02/17/17 02:00 89 02/17/17 01:07 100 35 02/17/17 00:00 98.3 85 115/61 (79) 100 02/17/17 00:00 35 02/17/17 00:00 85 02/17/17 02/17/17 02/18/17 14:59 22:59 06:59 Intake Total 931 ml Output Total 2300 ml Balance -1369 ml Tube Feeding 531 ml Other 400 ml Output Urine Total 2300 ml Stool Total 0 ml . Laboratory Tests Test 02/16/17 04:10 02/17/17 14:53 White Blood Count 9.6 TH/MM3 11.5 TH/MM3 Red Blood Count 2.97 MIL/MM3 3.69 MIL/MM3 Hemoglobin 9.0 GM/DL 10.4 GM/DL Hematocrit 26.3 % 31.6 % Mean Corpuscular Volume 88.6 FL 85.5 FL Mean Corpuscular Hemoglobin 30.2 PG 28.1 PG Mean Corpuscular Hemoglobin Concent 34.0 % 32.9 % Red Cell Distribution Width 16.2 % 15.9 % Platelet Count 87 TH/MM3 136 TH/MM3 Mean Platelet Volume 9.5 FL 9.0 FL Laboratory Tests Test 02/16/17 17:45 02/17/17 14:53 Prealbumin 32 MG/DL Blood Urea Nitrogen 45 MG/DL Creatinine 0.87 MG/DL Random Glucose 199 MG/DL Calcium Level 7.6 MG/DL Sodium Level 129 MEQ/L Potassium Level 2.7 MEQ/L Chloride Level 89 MEQ/L Carbon Dioxide Level 30.7 MEQ/L Anion Gap 9 MEQ/L Estimat Glomerular Filtration Rate 64 ML/MIN Imaging Last Impressions Abdomen/Pelvis CT 02/14/17 0000 Signed Impressions: Service Date/Time: Tuesday, February 14, 2017 23:14 - CONCLUSION: 1. Nonspecific small ascites with bilateral pleural effusions and body wall edema/anasarca. No abscess demonstrated. 2. Possible mass of the lower rectum and please correlate clinically. 3. Gastric feeding tube with tip in the lower body. 4. Sigmoid colon diverticulosis without perceptible acute inflammatory changes. 5. Cholelithiasis without evidence of cholecystitis or biliary obstruction. Phan Lomas MD Chest X-Ray 02/13/17 0000 Signed Impressions: Service Date/Time: Monday, February 13, 2017 09:59 - CONCLUSION: No significant change in the bilateral pulmonary infiltrates, left greater than right. Brett Persaud MD Gastrostomy Tube Placement 02/05/17 0000 Signed Impressions: Service Date/Time: January 16:47 - CONCLUSION: Uncomplicated gastrostomy tube placement as above. Jorje Josue MD Lower Extremity Ultrasound 02/04/17 0000 Signed Impressions: Service Date/Time: Saturday, February 04, 2017 21:13 - CONCLUSION: 1. No evidence of deep venous thrombosis within the lower extremities. 2. Popliteal cyst on the left measuring 2.2 x 1.5 x 0.9 cm. Julian Mcmahan MD Head CT 02/04/17 0000 Signed Impressions: Service Date/Time: Saturday, February 04, 2017 17:50 - CONCLUSION: 1. No acute intracranial abnormality. 2. Tiny fluid level within the right maxillary sinus. Julian Mcmahan MD CT Angiography 02/04/17 0000 Signed Impressions: Service Date/Time: Saturday, February 04, 2017 17:54 - CONCLUSION: 1. No evidence of pulmonary embolism. 2. Bibasilar alveolar consolidations as well as scattered perihilar patchy opacities suggestive of probable pneumonia. Clinical correlation is recommended. 3. 1.7 cm right thyroid nodule. Julian Mcmahan MD Abdomen X-Ray 02/04/17 0000 Signed Impressions: Service Date/Time: January 05:52 - CONCLUSION: Interval placement of nasogastric tube with the tip in the left mainstem bronchus. Caesar Ramos MD Physical Exam CONSTITUTIONAL/GENERAL: This is a poorly nourished patient, in no apparent distress. TUBES/LINES/DRAINS: SKIN: No jaundice, rashes, or lesions. Skin temperature appropriate. Not diaphoretic. EYES: Pupils equal and round and reactive. Extraocular motions intact. No scleral icterus. No injection or drainage. Fundi not examined. ENT: Hearing grossly normal. Nose without bleeding or purulent drainage. Throat without visible erythema, exudates, masses, or lesions. CARDIOVASCULAR: Regular rate and rhythm without murmurs, gallops, or rubs. No JVD. Peripheral pulses symmetric. RESPIRATORY/CHEST: Symmetric, unlabored respirations. Clear to auscultation. Breath sounds equal bilaterally. No wheezes, rales, or rhonchi. GASTROINTESTINAL: Abdomen soft, not tender or distended. No hepato-splenomegaly , or palpable masses. No guarding. Bowel sounds present. Rectal tube in place with liquid stool GENITOURINARY: Without palpable bladder distension. MUSCULOSKELETAL: Extremities without clubbing, cyanosis, or edema. No joint tenderness or effusion noted. No calf tenderness. No mottling or clubbing. PSYCHIATRIC: No obvious anxiety/depression. no apparent hallucinations or other psychotic thought process. Assessment & Plan Remarks PNA, culture neg Acute VDRF - recurrent intubation Diarrhea, abx associated - C.diff negative Abdominal pain, diffuse - improved worsenin leukocytosis fu WBC no abx for now dw with Ness Gandhi MD Feb 17, 2017 22:34
[2017-02-18] VITALS (36 sets, daily range): BP systolic 87–140; BP diastolic 51–70; PULSE 86–100; RESP 20–73; TEMP 98–98.7; O2SAT 97–100
[2017-02-18] MEDS: FUROSEMIDE 100 MG/10 ML VIAL IV PUSH SCH ×2 (00:29→08:32)
[2017-02-18] MEDS: RESP: ALBUTEROL 2.5 MG/IPRATROPIUM 0.5 MG NEB (SCH) NEB ×6 (01:02→23:29)
[2017-02-18] MEDS: INSULIN NovoLIN REGULAR SUPPLEMENTAL SCALE SQ SCH ×6 (04:00→20:43)
[2017-02-18] MEDS: CHLORHEXIDINE GLUCONATE 2 % 1 PACK (2 CLOTHS) TOP SCH (04:00)
[2017-02-18 05:40] LABS: HEMATOCRIT 27.1 % (35.0-46.0); HEMOGLOBIN 9.5 GM/DL (11.6-15.3); MEAN CELL VOLUME 87.6 FL (80.0-100.0); MEAN CORPUSCULAR HEMOGLOBIN 30.8 PG (27.0-34.0); MEAN CORPUSCULAR HGB CONC 35.2 % (32.0-36.0); MEAN PLATELET VOLUME 9.5 FL (7.0-11.0); PLATELET COUNT 171 TH/MM3 (150-450); WHITE BLOOD COUNT 11.7 TH/MM3 (4.0-11.0)
[2017-02-18 06:03] LABS: BICARBONATE 30.3 MEQ/L (21.0-32.0); CALCIUM 7.8 MG/DL (8.5-10.1); CREATININE 0.86 MG/DL (0.50-1.00)
[2017-02-18] MEDS: PANTOPRAZOLE SOD 40 MG DELAYED RELEASE TAB PO SCH (08:32)
[2017-02-18] MEDS: SODIUM CHLORIDE 0.9% FLUSH 10 ML FLUSH IV FLUSH SCH ×2 (08:33→20:43)
[2017-02-18] MEDS: CHLORHEXIDINE 0.12% (ORAL KIT) 15 ML CUP MT SCH ×2 (08:33→20:43)
--- NOTE | 2017-02-18 09:52 | HHI.HCPN ---
Reason for visit a. To assist with evaluation and management of symptoms including:shortness of breath b. To assist medical decision maker(s) with: better understanding of current medical conditions; weighing benefits/burdens of medical treatment options; making medical treatment decisions. Subjective/Interval History Patient had trach 02/16. Pt continue to fail cpap. There is leukocytosis this morning. Id is following. Na is better this morning. Family/friend interactions Spoke with granddaughter Connie. Answered her questions. Reemphasize that trach is there to still buy time, and it does not fixed her underlying deconditioning. Her aspiration risk is still present. There is no change in goals of care. Advance Directives Living Will: Never completed Health Care Surrogate: Copy in medical record Advance Directive Specifics Date completed: December 19, 2016 . Health Care Surrogate(s): Granddaughter-[facility]- Connie Stratton [facility]- [phone] [facility]ate [facility] [phone] . Objective Vital Signs Date Time Temp Pulse Resp B/P (MAP) Pulse Ox O2 Delivery O2 Flow Rate FiO2 02/18/17 08:24 100 35 02/18/17 06:00 90 02/18/17 04:00 35 02/18/17 04:00 90 02/18/17 04:00 98.4 90 97/52 (67) 99 02/18/17 03:59 99 30 02/18/17 02:00 93 02/18/17 01:02 99 30 02/18/17 00:00 35 02/18/17 00:00 98.4 93 93/51 (65) 99 02/18/17 00:00 93 02/17/17 22:00 100 02/17/17 20:35 100 30 02/17/17 20:00 91 02/17/17 20:00 98.6 91 16 109/58 (75) 100 02/17/17 20:00 35 02/17/17 18:00 92 02/17/17 16:00 35 02/17/17 16:00 95 02/17/17 16:00 97.5 83 122/60 (80) 100 02/17/17 15:47 100 35 02/17/17 14:00 85 02/17/17 12:00 83 02/17/17 12:00 35 02/17/17 12:00 97.9 83 22 110/57 (74) 100 02/17/17 11:51 100 35 02/17/17 10:00 93 Intake & Output 02/18/17 02/18/17 07:00 19:00 Intake Total 300 ml Output Total 1800 ml Balance -1500 ml Tube Feeding 300 ml Output Urine Total 1800 ml Tube Feeding Residual Discard 0 ml # Bowel Movements 2 Physical Exam CONSTITUTIONAL/GENERAL: This is a cachectic, ill-looking elderly patient, appears older than stated age, Trach TUBES/LINES/DRAINS: Cabrera catheter, PIV, PEG tube, rectal bag SKIN: No jaundice. Ecchymoses on upper extremities- skin tear to left elbow. Skin temperature appropriate. Not diaphoretic. HEAD: Atraumatic. Normocephalic. EYES: Pupils equal and round and reactive. Extraocular motions intact. No scleral icterus. No injection or drainage. Fundi not examined. ENT: Hearing grossly normal. Nose without bleeding or purulent drainage. Moist oral mucosa. NECK: Trachea midline, trach in place.. CARDIOVASCULAR: Regular rate and rhythm without murmurs, gallops, or rubs . No JVD. Peripheral pulses symmetric. Edema to bilateral upper extremities RESPIRATORY/CHEST: Symmetric, unlabored respirations. Rhonchi to auscultation. Diminished Breath sounds equal bilaterally. Currently on CPAP Trial. GASTROINTESTINAL: Abdomen soft, non-tender, nondistended. Bowel sounds present. PEG tube. GENITOURINARY: Without palpable bladder distension. Cabrera catheter in place. MUSCULOSKELETAL: Extremities without clubbing. No joint tenderness or effusion noted. No calf tenderness. No mottling. Improved bilateral lower extremities edema. NEUROLOGICAL: Intubated on mechanical ventilation. Withdraws with all 4 extremities. PSYCHIATRIC: Unable to assess,now intubated on mechanical ventilation. . . Diagnostic Tests Laboratory Laboratory Tests Test 02/16/17 04:10 02/16/17 17:45 02/17/17 14:53 02/18/17 04:30 White Blood Count 9.6 TH/MM3 (4.0-11.0) 11.5 TH/MM3 (4.0-11.0) 11.7 TH/MM3 (4.0-11.0) Red Blood Count 2.97 MIL/MM3 (4.00-5.30) 3.69 MIL/MM3 (4.00-5.30) 3.10 MIL/MM3 (4.00-5.30) Hemoglobin 9.0 GM/DL (11.6-15.3) 10.4 GM/DL (11.6-15.3) 9.5 GM/DL (11.6-15.3) Hematocrit 26.3 % (35.0-46.0) 31.6 % (35.0-46.0) 27.1 % (35.0-46.0) Mean Corpuscular Volume 88.6 FL (80.0-100.0) 85.5 FL (80.0-100.0) 87.6 FL (80.0-100.0) Mean Corpuscular Hemoglobin 30.2 PG (27.0-34.0) 28.1 PG (27.0-34.0) 30.8 PG (27.0-34.0) Mean Corpuscular Hemoglobin Concent 34.0 % (32.0-36.0) 32.9 % (32.0-36.0) 35.2 % (32.0-36.0) Red Cell Distribution Width 16.2 % (11.6-17.2) 15.9 % (11.6-17.2) 16.0 % (11.6-17.2) Platelet Count 87 TH/MM3 (150-450) 136 TH/MM3 (150-450) 171 TH/MM3 (150-450) Mean Platelet Volume 9.5 FL (7.0-11.0) 9.0 FL (7.0-11.0) 9.5 FL (7.0-11.0) Prothrombin Time 10.8 SEC (9.8-11.6) Prothromb Time International Ratio 1.1 RATIO Prealbumin 32 MG/DL (20-40) Blood Urea Nitrogen 45 MG/DL (7-18) 56 MG/DL (7-18) Creatinine 0.87 MG/DL (0.50-1.00) 0.86 MG/DL (0.50-1.00) Random Glucose 199 MG/DL (74-106) 200 MG/DL (74-106) Calcium Level 7.6 MG/DL (8.5-10.1) 7.8 MG/DL (8.5-10.1) Sodium Level 129 MEQ/L (136-145) 132 MEQ/L (136-145) Potassium Level 2.7 MEQ/L (3.5-5.1) 3.6 MEQ/L (3.5-5.1) Chloride Level 89 MEQ/L (98-107) 93 MEQ/L (98-107) Carbon Dioxide Level 30.7 MEQ/L (21.0-32.0) 30.3 MEQ/L (21.0-32.0) Anion Gap 9 MEQ/L (5-15) 9 MEQ/L (5-15) Estimat Glomerular Filtration Rate 64 ML/MIN (>89) 65 ML/MIN (>89) Result Diagram: 02/18/17 0430 02/18/17 0430 Procedures 02/05/17 PEG tube placement 02/10/17- Intubated 02/12/17- Extubated 02/12/17-Reintubated 02/16/17 trach placement . Assessment and Plan Disease Oriented Problem List: (1) Sepsis (2) Hyponatremia (3) Pneumonia (4) Hypoxia Symptom Scale: (1) Shortness of breath Comment: Multifactorial. Patient has had multiple hospitalizations for shortness of breath/pneumonia. Mild respiratory distress. Reintubated. . (2) Decreased oral intake Comment: History of dysphagia status post dilatation. Patient was currently on pured diet in snf. His lost approximately 25 pounds in 2 months. Now has a PEG Tube-receiving TF. . (3) Debility Comment: Progressive. Patient has had prolonged hospitalization in 4 different facilities since November 2016. Since November she has been hospitalized approximately 5 times. Patient was discharged recently into a halfway facility. Patient has also lost weight significantly. Has not been able to participate in physical therapy due to her illness. Patient remains at high risk for deterioration if she continues to have shortness of breath, which will limit her participation in physical therapy. PT was consulted- recommending PT at rehab. . Pertinent Non-Medical Issues Psychosocial:Patient was born and raised in [place]. Patient still lives in [place] but came to [place] with her granddaughter to visit in late November, after being hospitalized in [place] and [place] for approximately 4 weeks. Patient was twice and once and her last a few years ago . She has 1 adult daughter, one grandchild and 2 great grandchildren. Patients is level of education is high school. 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 Patient has been living alone independently in [place] and helps take care of her elderly mother was 95 years old. Spiritual:[employer]- have support from local yarsanism-Does not want visit from [employer] services Legal:Patient has a designated [facility] Ethical issues impacting care: None identified at this time. Important Contacts Granddaughter-[facility]- Connie Cotton- [phone] Alternate HCS- Freddy Cotton [phone] Daughter- Flor Bennett [phone] . Prognosis Mrs Knapp is a 71 years old female with a past medical history of colon cancer, esophageal strictures, pneumonia and anxiety. Patient has had multiple hospitalizations for persistent pneumonia, hyponatremia and dysphagia. She was recently discharged from [facility] to a halfway facility. Patient presented via EMS to [facility] ER on 02/04/17 after she was found slumped over, with cyanosis of limbs and in respiratory distress at the [facility]. Patient`s O2 saturation were in the 80s. Given ongoing comorbidities and recent multiple hospitalizations, patient remains at high risk for complications, deterioration in decline. . Code Status: Full Code Plan Legal decision maker: Patient is currently intubated and on mechanical ventilation. Patient has designated her granddaughter Connie Cotton as her Healthcare Surrogate and her alternate HCS her granddaughter`s Freddy Cotton. Goals: Aggressive. No change in goals of care. CODE STATUS: Full code SYMPTOMS: * Shortness of breath:Multifactorial. Patient has had multiple hospitalizations for shortness of breath/pneumonia. Chest x-ray revealed a space infiltrate in right base, with possible small effusion. S/P trach, failing CPAP. Likely will need LTAC Palliative care will continue to follow the patient during hospital course as condition evolves, to assist patient/decision-maker with understanding of their medical conditions, weighing benefits/burdens of treatment options, for clarification of goals of treatment. Additionally will assist with any symptoms of palliative concern. . Attestation To help prompt me to consider important information that might be impacting today's encounter and assessment, information from prior notes written by myself or my colleagues may have been "brought forward" into today's note. My signature on this note, however, is an attestation that I personally performed the exam, history, and/or decision-making noted today, and, unless otherwise indicated, the interactions with patient, family, and staff as well as the review of records all occurred today. I also attest that the listed assessment and stated plan reflect my best clinical judgment today based on the combination of historical information, prior notes, and today's exam/ interactions. When time spent is documented, it refers only to time spent today by the signer, or if indicated, combined time spent today by collaborating physician/nurse practitioner. Darvin Covington MD Feb 18, 2017 09:52
[2017-02-18] MEDS: predniSONE 5 MG/5 ML CUP PO SCH (11:55)
[2017-02-18] MEDS ORDERED: ALBUMIN 25% INJ 100 ML IV ONE (12:00)
[2017-02-18] MEDS: INSULIN DETEMIR 100 UNITS/ML VIAL SQ SCH ×2 (12:09→20:43)
--- NOTE | 2017-02-18 12:12 | HHI.CCPN ---
Subjective Remarks/Hospital Course 02/04: 71-year-old female with a medical history significant for colon cancer in 2003 for which she underwent partial colon resection and chemotherapy, esophageal stricture with significant weight loss due to poor by mouth intake for which she was hospitalized in [place] in November 2016 for 2 weeks treated for pneumonia and subsequently evaluated for dysphagia and was found to have a sufficient stricture for which she was transferred to [facility] in [place] and underwent esophageal dilatation and was subsequently discharged 2 weeks later on a pured diet. Patient moved to [place] with her granddaughter and a few beats VAC was admitted to [facility] for worsening shortness of breath and was diagnosed with a pneumonia, hyponatremia. She was treated with antibiotics and subsequently discharged home however the following day had to be readmitted at [facility] for unresolved shortness of breath where she was hospitalized for a week and subsequently [facility] to jail 3 days prior to this admission. Patient's by mouth intake has been poor since her discharge 3 days back according to her granddaughter as the pured diet at the jail is to take. Patient was found to have altered mental status today and was found slumped to one side with poor respirations. EMS was called and patient was noted to have O2 sats in the 60s. She was transported to the emergency room where she was placed on BiPAP for respiratory distress with hypoxic respiratory failure. She was also noted to be hypertensive on arrival with systolic blood pressure in the 200s. Patient was also found to have a sodium of 118. I was contacted by ER physician and accepted patient for admission to the ICU. When I evaluated the patient in the ER she was on BiPAP with full facemask. History was obtained by discussion with patient's granddaughter was at the bedside. Patient was much more awake at this time and trying to communicate however in view of BiPAP requirement was difficult to communicate with. She denied any chest pain at the time. Patient has chronic diarrhea since her colon surgery in 2003. Per the granddaughter she was doing well till about 3 months ago when she started having significant weight loss and poor by mouth intake possibly related to esophageal stricture and the fact that she was taking care of her sick family member at home. She has been advised a PEG tube per the granddaughter because of her poor nutritional status and poor by mouth intake. She has had problems with hyponatremia off and on for a while. Patient's granddaughter is very concerned about her poor nutritional status. 02/05: Tolerating nasal cannula. Underwent PEG tube placement by IR today. Sodium 122. 02/06 No events overnight. s/p PEG tube placement yesterday. Sodium level 131 this morning 02/07 No events overnight. On 50% VM with good sats. 02/08 No events overnight. Afebrile . Off BIPAP. 02/09 Patient is on BIPAP 02/03 with 45% FIO2> Afebrile. 02/10 Patient was intubated early this morning for acute hypercapnic resp acidosis. Afebrile. 02/11 No events overnight. Patient remains intubated. Afebrile. 02/12 Patient remains intubated and on Precedex drip for sedation. Afebrile. 02/13 Patient was extubated yesterday and reintubated late afternoon for acute resp acidosis. afebrile. 02/14: remains intubated. appears very weak. long conversation with granddaughter and medical decision-maker at bedside. likely will require tracheostomy given repeat re-intubations and chronic debilitation. granddaughter requests we wait until thursday or thursday, and requests it be done in the OR and not at bedside. 02/15: wake and more alert. however, only tolerated 10 minutes of CPAP before becoming tachypneic and failing. gen surg consulted for trach: family requests OR trach due to concerns over infection risk at bedside. I counseled patient's family that there was no increased risk of infection, and the trachea is inherently an unsterile environment with endotracheal tube in place, but family insists on OR trach. hypernatremia slightly worse despite increasing free water. 02/16: still awake and alert. failed CPAP again today. plan for trach today. 02/17: s/p trach yesterday. doing well. still failing CPAP for weakness and tachypnea. needs LTAC. hyponatremia and hypokalemia: kcl replacement and holding free water. 02/18: sodium improving. doing well. needs aggressive PT. Objective Vital Signs Date Time Temp Pulse Resp B/P (MAP) Pulse Ox O2 Delivery O2 Flow Rate FiO2 02/18/17 08:24 100 35 02/18/17 06:00 90 02/18/17 04:00 98.4 97/52 (67) 02/17/17 20:00 16 02/14/17 23:05 10.00 Intake and Output 02/18/17 02/18/17 02/19/17 08:00 16:00 00:00 Intake Total 300 ml Output Total 1800 ml Balance -1500 ml Result Diagram: 02/18/17 0430 02/18/17 0430 Imaging Last Impressions Chest X-Ray 02/12/17 0000 Signed Impressions: Service Date/Time: January 18:13 - CONCLUSION: 1. Endotracheal tube tip remains in proximal right mainstem bronchus and should be withdrawn about 2- 3 cm. 2. There is basilar airspace disease, left greater than right with small effusions. Candido Garay MD Gastrostomy Tube Placement 02/05/17 0000 Signed Impressions: Service Date/Time: January 16:47 - CONCLUSION: Uncomplicated gastrostomy tube placement as above. Jorje Josue MD Lower Extremity Ultrasound 02/04/17 0000 Signed Impressions: Service Date/Time: Saturday, February 04, 2017 21:13 - CONCLUSION: 1. No evidence of deep venous thrombosis within the lower extremities. 2. Popliteal cyst on the left measuring 2.2 x 1.5 x 0.9 cm. Julian Mcmahan MD Head CT 02/04/17 0000 Signed Impressions: Service Date/Time: Saturday, February 04, 2017 17:50 - CONCLUSION: 1. No acute intracranial abnormality. 2. Tiny fluid level within the right maxillary sinus. Julian Mcmahan MD CT Angiography 02/04/17 0000 Signed Impressions: Service Date/Time: Saturday, February 04, 2017 17:54 - CONCLUSION: 1. No evidence of pulmonary embolism. 2. Bibasilar alveolar consolidations as well as scattered perihilar patchy opacities suggestive of probable pneumonia. Clinical correlation is recommended. 3. 1.7 cm right thyroid nodule. Julian Mcmahan MD Abdomen X-Ray 02/04/17 0000 Signed Impressions: Service Date/Time: January 05:52 - CONCLUSION: Interval placement of nasogastric tube with the tip in the left mainstem bronchus. Caesar Ramos MD Objective Remarks GENERAL: frail elderly female, lying in bed, trach in place SKIN: Warm and dry. HEAD: Normocephalic. EYES: No scleral icterus. No injection or drainage. NECK: trachea midline. No JVD. trach in place. CARDIOVASCULAR: normal rate, regular rhythm. appears sinus by tele. RESPIRATORY: PSV 12. peep 5. GASTROINTESTINAL: Abdomen soft, non-tender, nondistended. no guarding. MUSCULOSKELETAL: No cyanosis, or edema. Neuro: RASS -1. follows commands. moves all extremities. A/P Assessment and Plan Assessment: 71yF with at least a 3 month chronic course of failure to thrive and weight loss, esophageal stricture, and now recurrent hypoxic and hypercarbic respiratory failure requiring multiple intubations. She needs aggressive pulmonary rehab in an LTAC type facility. Plan: Neuro: Acute metabolic encephalopathy Anxiety Insomnia - off sedation. daily sedation vacations family have asked that we avoid fentanyl, versed, and propofol because in their past experience, she has reacted poorly to these. they request precedex only. decrease xanax to 0.5mg po q6h prn (1mg dose caused oversedation) melatonin 5mg po qHS for sleep CV: Monitor HR and BP keep MAP>65mmHg Pulm: Recurrent acute hypercarbic and hypoxic respiratory failure likely secondary to deconditioning and weakness. likely also large component of silent or overt aspiration and inability to control secretions. Continue with vent support keep sat >92% Bronchodilators. ICU vent bundle. CT chest with no evidence of PE and shows bibasilar infiltrates concerning for recurrent aspiration pneumonia Pulm is following continue daily SBTs. needs LTAC. s/p trach 02/[address] Chaudhry prednisone taper. GI/liver: Failure to thrive Hypernatremia- resolved. Free water deficit- resolved. Chronic diarrhea History of esophageal stricture status post recent esophageal dilation History of colon cancer Acute protein calorie malnutrition - severe hyponatremia- improving. hypokalemia s/p PEG tube placement by IR 02/05 Continue tube feeds-Jevity 1.5 @ 45ml/hr GI involved. daily bmp hold free water ICU electrolyte protocol recheck electrolytes daily Renal/: Acute intravascular volume overload- improving. Metabolic alkalosis Monitor renal function, I/O's, electrolytes replacement as needed. hold iv diuresis Lasix 40mg po daily ID: Healthcare Associated Pneumonia- resolved. s/p full course abx. monitor off abx. ID following. Endocrine: Hyperglycemia of Critical Illness SSI for glycemic control Levemir 5u Q12 Heme-onc: Anemia secondary to chronic disease Monitor CBC does not meet transfusion criteria. Prophylaxis: pepcid/SCDs. Subcutaneous Lovenox. Palliative care is following Waldo Luke MD Feb 18, 2017 12:12
--- NOTE | 2017-02-18 17:14 | HHI.PR ---
Subjective Remarks 71 YOWF with VDRF,Bibasilar infilt Sedated with Fentanyl BP borderline gets anxious Tolerating CPAP Objective Vital Signs Vital Signs Date Time Temp Pulse Resp B/P (MAP) Pulse Ox O2 Delivery O2 Flow Rate FiO2 02/18/17 16:00 98.7 97 21 94/56 (69) 97 02/18/17 16:00 30 02/18/17 15:30 100 93/59 (70) 97 02/18/17 15:00 96 02/18/17 15:00 96 89/54 (66) 97 02/18/17 14:31 98 30 02/18/17 14:30 96 87/59 (68) 98 02/18/17 14:00 95 109/57 (74) 99 02/18/17 14:00 95 02/18/17 13:30 95 120/59 (79) 100 02/18/17 13:00 95 124/60 (81) 100 02/18/17 13:00 95 02/18/17 12:30 93 140/62 (88) 100 02/18/17 12:23 100 30 02/18/17 12:00 98.3 95 96/70 (79) 100 02/18/17 12:00 30 02/18/17 12:00 95 02/18/17 11:30 88 104/55 (71) 100 02/18/17 11:00 88 02/18/17 11:00 88 103/56 (72) 100 02/18/17 10:00 90 98/52 (67) 100 02/18/17 10:00 90 02/18/17 09:30 87 02/18/17 09:30 87 111/52 (71) 100 02/18/17 09:00 90 02/18/17 09:00 90 114/51 (72) 99 02/18/17 08:30 86 98/51 (67) 100 02/18/17 08:24 100 35 02/18/17 08:20 30 02/18/17 08:00 98.0 92 102/52 (69) 100 02/18/17 08:00 92 02/18/17 07:30 91 97/54 (68) 100 02/18/17 07:00 91 104/55 (71) 100 02/18/17 06:00 90 02/18/17 04:00 35 02/18/17 04:00 90 02/18/17 04:00 98.4 90 97/52 (67) 99 02/18/17 03:59 99 30 02/18/17 02:00 93 02/18/17 01:02 99 30 02/18/17 00:00 35 02/18/17 00:00 98.4 93 93/51 (65) 99 02/18/17 00:00 93 02/17/17 22:00 100 02/17/17 20:35 100 30 02/17/17 20:00 91 02/17/17 20:00 98.6 91 16 109/58 (75) 100 02/17/17 20:00 35 02/17/17 18:00 92 I/O 02/17/17 02/17/17 02/17/17 02/18/17 02/18/17 02/18/17 07:00 15:00 23:00 07:00 15:00 23:00 Intake Total 1802 ml 931 ml 300 ml Output Total 1900 ml 2300.0 ml 1800 ml Balance -98 ml -1369.0 ml -1500 ml IV Total 462 ml Tube Feeding 440 ml 531 ml 300 ml Other 900 ml 400 ml Output Urine Total 1900 ml 2300 ml 1800 ml Stool Total 0 ml 0 ml Tube Feeding Residual Discard 0 ml 0 ml 0 ml # Bowel Movements 2 Result Diagram: 02/18/1742902/18/17429 Objective Remarks GENERAL: Frail elderly female, on Vent SKIN: Warm and dry. HEAD: Normocephalic. EYES: No scleral icterus. No injection or drainage. NECK: Supple, trachea midline. No JVD or lymphadenopathy. CARDIOVASCULAR: Regular rate and rhythm without murmurs, gallops, or rubs. RESPIRATORY: Breath sounds equal bilaterally. No accessory muscle use. GASTROINTESTINAL: Abdomen soft, non-tender, nondistended. MUSCULOSKELETAL: No cyanosis, or edema. BACK: Nontender without obvious deformity. No CVA tenderness. A/P Assessment and Plan VDRF, s/p Trach 02/16 Bibasilar infilterates Hypotension Anxiety H/O Ca colon Weight loss PLAN: Dw pt's Grand daughter Cont Abx Vanco, Cefepime and Zithro IV Solumedrol Xanax 0.5 mg q 6 hrs Trach care Daily CPAP trial DC Plans underway for [facility] Yusef Hernandez MD Feb 18, 2017 17:14
[2017-02-18] MEDS: MELATONIN 5 MG TAB PO SCH (20:43)
[2017-02-19] VITALS (34 sets, daily range): BP systolic 99–141; BP diastolic 51–92; PULSE 77–117; RESP 16–61; TEMP 98.3–99.1; O2SAT 100
[2017-02-19] MEDS: INSULIN NovoLIN REGULAR SUPPLEMENTAL SCALE SQ SCH ×6 (00:02→20:00)
[2017-02-19] MEDS: RESP: ALBUTEROL 2.5 MG/IPRATROPIUM 0.5 MG NEB (SCH) NEB ×5 (03:42→23:31)
[2017-02-19] MEDS: CHLORHEXIDINE GLUCONATE 2 % 1 PACK (2 CLOTHS) TOP SCH ×2 (04:00→21:13)
[2017-02-19 05:03] LABS: HEMOGLOBIN 8.9 GM/DL (11.6-15.3); MEAN CELL VOLUME 86.1 FL (80.0-100.0); MEAN CORPUSCULAR HEMOGLOBIN 29.5 PG (27.0-34.0); MEAN CORPUSCULAR HGB CONC 34.2 % (32.0-36.0); MEAN PLATELET VOLUME 8.9 FL (7.0-11.0); PLATELET COUNT 145 TH/MM3 (150-450); RED BLOOD COUNT 3.02 MIL/MM3 (4.00-5.30); RED CELL DISTRIBUTION WIDTH 15.9 % (11.6-17.2); WHITE BLOOD COUNT 9.7 TH/MM3 (4.0-11.0)
[2017-02-19 05:44] LABS: BICARBONATE 30.5 MEQ/L (21.0-32.0); CALCIUM 7.9 MG/DL (8.5-10.1); CREATININE 0.88 MG/DL (0.50-1.00)
[2017-02-19] MEDS: POTASSIUM CHLOR 20 MEQ PREMIX 100 ML IV PRN ×2 (06:19→08:48)
--- NOTE | 2017-02-19 08:36 | HHI.CCPN ---
Subjective Remarks/Hospital Course 02/04: 71-year-old female with a medical history significant for colon cancer in 2003 for which she underwent partial colon resection and chemotherapy, esophageal stricture with significant weight loss due to poor by mouth intake for which she was hospitalized in [place] in November 2016 for 2 weeks treated for pneumonia and subsequently evaluated for dysphagia and was found to have a sufficient stricture for which she was transferred to [place] in [place] and underwent esophageal dilatation and was subsequently discharged 2 weeks later on a pured diet. Patient moved to [place] with her granddaughter and a few beats VAC was admitted to [facility] for worsening shortness of breath and was diagnosed with a pneumonia, hyponatremia. She was treated with antibiotics and subsequently discharged home however the following day had to be readmitted at [facility] for unresolved shortness of breath where she was hospitalized for a week and subsequently discharged to assisted 3 days prior to this admission. Patient's by mouth intake has been poor since her discharge 3 days back according to her granddaughter as the pured diet at the assisted is to take. Patient was found to have altered mental status today and was found slumped to one side with poor respirations. EMS was called and patient was noted to have O2 sats in the 60s. She was transported to the emergency room where she was placed on BiPAP for respiratory distress with hypoxic respiratory failure. She was also noted to be hypertensive on arrival with systolic blood pressure in the 200s. Patient was also found to have a sodium of 118. I was contacted by ER physician and accepted patient for admission to the ICU. When I evaluated the patient in the ER she was on BiPAP with full facemask. History was obtained by discussion with patient's granddaughter was at the bedside. Patient was much more awake at this time and trying to communicate however in view of BiPAP requirement was difficult to communicate with. She denied any chest pain at the time. Patient has chronic diarrhea since her colon surgery in 2003. Per the granddaughter she was doing well till about 3 months ago when she started having significant weight loss and poor by mouth intake possibly related to esophageal stricture and the fact that she was taking care of her sick family member at home. She has been advised a PEG tube per the granddaughter because of her poor nutritional status and poor by mouth intake. She has had problems with hyponatremia off and on for a while. Patient's granddaughter is very concerned about her poor nutritional status. 02/05: Tolerating nasal cannula. Underwent PEG tube placement by IR today. Sodium 122. 02/06 No events overnight. s/p PEG tube placement yesterday. Sodium level 131 this morning 02/07 No events overnight. On 50% VM with good sats. 02/08 No events overnight. Afebrile . Off BIPAP. 02/09 Patient is on BIPAP 02/03 with 45% FIO2> Afebrile. 02/10 Patient was intubated early this morning for acute hypercapnic resp acidosis. Afebrile. 02/11 No events overnight. Patient remains intubated. Afebrile. 02/12 Patient remains intubated and on Precedex drip for sedation. Afebrile. 02/13 Patient was extubated yesterday and reintubated late afternoon for acute resp acidosis. afebrile. 02/14: remains intubated. appears very weak. long conversation with granddaughter and medical decision-maker at bedside. likely will require tracheostomy given repeat re-intubations and chronic debilitation. granddaughter requests we wait until thursday or thursday, and requests it be done in the OR and not at bedside. 02/15: wake and more alert. however, only tolerated 10 minutes of CPAP before becoming tachypneic and failing. gen surg consulted for trach: family requests OR trach due to concerns over infection risk at bedside. I counseled patient's family that there was no increased risk of infection, and the trachea is inherently an unsterile environment with endotracheal tube in place, but family insists on OR trach. hypernatremia slightly worse despite increasing free water. 02/16: still awake and alert. failed CPAP again today. plan for trach today. 02/17: s/p trach yesterday. doing well. still failing CPAP for weakness and tachypnea. needs LTAC. hyponatremia and hypokalemia: kcl replacement and holding free water. 02/18: sodium improving. doing well. needs aggressive PT. 02/19 No events overnight. On ventilator via trach. Afebrile. Objective Vital Signs Date Time Temp Pulse Resp B/P (MAP) Pulse Ox O2 Delivery O2 Flow Rate FiO2 02/19/17 07:52 100 30 02/19/17 06:00 81 02/19/17 04:00 98.3 16 127/59 (81) Intake and Output 02/19/17 02/19/17 02/20/17 08:00 16:00 00:00 Intake Total 507 ml Output Total 650 ml Balance -143 ml Result Diagram: 02/19/17 0426 02/19/17 0426 Other Results Laboratory Tests Test 02/19/17 04:26 White Blood Count 9.7 TH/MM3 Red Blood Count 3.02 MIL/MM3 Hemoglobin 8.9 GM/DL Hematocrit 26.0 % Mean Corpuscular Volume 86.1 FL Mean Corpuscular Hemoglobin 29.5 PG Mean Corpuscular Hemoglobin Concent 34.2 % Red Cell Distribution Width 15.9 % Platelet Count 145 TH/MM3 Mean Platelet Volume 8.9 FL Blood Urea Nitrogen 55 MG/DL Creatinine 0.88 MG/DL Random Glucose 171 MG/DL Calcium Level 7.9 MG/DL Sodium Level 133 MEQ/L Potassium Level 2.9 MEQ/L Chloride Level 94 MEQ/L Carbon Dioxide Level 30.5 MEQ/L Anion Gap 9 MEQ/L Estimat Glomerular Filtration Rate 63 ML/MIN Imaging Last Impressions Abdomen/Pelvis CT 02/14/17 0000 Signed Impressions: Service Date/Time: Tuesday, February 14, 2017 23:14 - CONCLUSION: 1. Nonspecific small ascites with bilateral pleural effusions and body wall edema/anasarca. No abscess demonstrated. 2. Possible mass of the lower rectum and please correlate clinically. 3. Gastric feeding tube with tip in the lower body. 4. Sigmoid colon diverticulosis without perceptible acute inflammatory changes. 5. Cholelithiasis without evidence of cholecystitis or biliary obstruction. Phan Lomas MD Chest X-Ray 02/13/17 0000 Signed Impressions: Service Date/Time: Monday, February 13, 2017 09:59 - CONCLUSION: No significant change in the bilateral pulmonary infiltrates, left greater than right. Brett Persaud MD Gastrostomy Tube Placement 02/05/17 0000 Signed Impressions: Service Date/Time: January 16:47 - CONCLUSION: Uncomplicated gastrostomy tube placement as above. Jorje Josue MD Lower Extremity Ultrasound 02/04/17 0000 Signed Impressions: Service Date/Time: Saturday, February 04, 2017 21:13 - CONCLUSION: 1. No evidence of deep venous thrombosis within the lower extremities. 2. Popliteal cyst on the left measuring 2.2 x 1.5 x 0.9 cm. Julian Mcmahan MD Head CT 02/04/17 Signed Impressions: Service Date/Time: Saturday, February 04, 2017 17:50 - CONCLUSION: 1. No acute intracranial abnormality. 2. Tiny fluid level within the right maxillary sinus. Julian Mcmahan MD CT Angiography 02/04/17 Signed Impressions: Service Date/Time: Saturday, February 04, 2017 17:54 - CONCLUSION: 1. No evidence of pulmonary embolism. 2. Bibasilar alveolar consolidations as well as scattered perihilar patchy opacities suggestive of probable pneumonia. Clinical correlation is recommended. 3. 1.7 cm right thyroid nodule. Julian Mcmahan MD Abdomen X-Ray 02/04/17 Signed Impressions: Service Date/Time: January 05:52 - CONCLUSION: Interval placement of nasogastric tube with the tip in the left mainstem bronchus. Caesar Ramos MD Objective Remarks GENERAL: frail elderly female, lying in bed, trach in place SKIN: Warm and dry. HEAD: Normocephalic. EYES: No scleral icterus. No injection or drainage. NECK: trachea midline. No JVD. trach in place. CARDIOVASCULAR: normal rate, regular rhythm. appears sinus by tele. RESPIRATORY: PSV 12. peep 5. GASTROINTESTINAL: Abdomen soft, non-tender, nondistended. no guarding. MUSCULOSKELETAL: No cyanosis, or edema. Neuro: RASS -1. follows commands. moves all extremities. A/P Assessment and Plan Assessment: 71yF with at least a 3 month chronic course of failure to thrive and weight loss, esophageal stricture, and now recurrent hypoxic and hypercarbic respiratory failure requiring multiple intubations. She needs aggressive pulmonary rehab in an LTAC type facility. Plan: Neuro: Acute metabolic encephalopathy Anxiety Insomnia - Monitor neuro status. On no sedation family have asked that we avoid fentanyl, versed, and propofol because in their past experience, she has reacted poorly to these. they request Precedex only. Xanax to 0.5mg po q6h prn melatonin 5mg po qHS for sleep CV: Monitor HR and BP keep MAP>65mmHg Pulm: Recurrent acute hypercarbic and hypoxic respiratory failure likely secondary to deconditioning and weakness. likely also large component of silent or overt aspiration and inability to control secretions. Continue with vent support keep sat >92% Bronchodilators. ICU vent bundle. CT chest with no evidence of PE and shows bibasilar infiltrates concerning for recurrent aspiration pneumonia Pulm is following. Check CXR and ABG continue daily SBTs. needs LTAC. s/p trach 02/[address] Chaudhry prednisone taper. GI/liver: Failure to thrive Hypernatremia- resolved. Free water deficit- resolved. Chronic diarrhea History of esophageal stricture status post recent esophageal dilation History of colon cancer Acute protein calorie malnutrition - severe hyponatremia- improving. s/p PEG tube placement by IR 02/05 Continue tube feeds-Jevity 1.5 @ 40ml/hr Reconsult GI: ? Rectal mass on CT abdomen ? need for colonoscopy. Renal/: Acute intravascular volume overload- improving. Metabolic alkalosis Monitor renal function, I/O's, electrolytes replacement per protocol. d/c Lasix. Will need K replacement today. Check Mg and Phos level. ID: Healthcare Associated Pneumonia- resolved. s/p full course abx. monitor off abx. ID following. Endocrine: Hyperglycemia of Critical Illness SSI for glycemic control Levemir 5u Q12 Heme-onc: Anemia secondary to chronic disease Monitor CBC Prophylaxis: pepcid/SCDs. Subcutaneous Lovenox. Palliative care is following Level 3 Varun Yusuf MD Feb 19, 2017 08:36
[2017-02-19] MEDS: predniSONE 5 MG/5 ML CUP PO SCH (08:49)
[2017-02-19] MEDS: FAMOTIDINE 20 MG TAB NG SCH (08:49)
[2017-02-19] MEDS: CHLORHEXIDINE 0.12% (ORAL KIT) 15 ML CUP MT SCH ×2 (08:49→21:17)
[2017-02-19] MEDS: SODIUM CHLORIDE 0.9% FLUSH 10 ML FLUSH IV FLUSH SCH ×2 (08:50→21:16)
[2017-02-19] MEDS: INSULIN DETEMIR 100 UNITS/ML VIAL SQ SCH ×2 (08:50→21:00)
[2017-02-19] MEDS ORDERED: FUROSEMIDE 40 MG/5 ML UNIT DOSE CUP NG SCH (09:00)
[2017-02-19] MEDS ORDERED: POTASSIUM CHLORIDE 20 MEQ PWD PACKET PO PRN (09:15)
[2017-02-19] MEDS ORDERED: POTASSIUM CHLOR 40 MEQ PREMIX 100 ML IV PRN (09:15)
--- NOTE | 2017-02-19 09:56 | RADRPT ---
EXAM DATE/TIME: 02/19/2017 08:52 [facility] COMPARISON: CHEST SINGLE AP, February 13, 2017, 9:59. INDICATIONS : Difficulty breathing. Ventilator dependent. MEDICAL HISTORY : Hernia, hiatal. Gastroesophageal reflux disease. Carcinoma, colon. SURGICAL HISTORY : Colon resection. Left hip replacement. ENCOUNTER: Subsequent ACUITY: 4 - 6 days PAIN SCORE: Non-responsive. LOCATION: Bilateral chest FINDINGS: A single view of the chest demonstrates the lungs to be symmetrically aerated with significant interv al improvement in the previously seen bilateral lower lobe infiltrates. The one on the right is a mos t completely resolved with minimal residual on the left. There also appears to be a left-sided effusi on. Endotracheal tube has been removed and replaced with a tracheostomy with the tip at the clavicula r heads. Heart size is normal. Osseous structures are intact. CONCLUSION: 1. Interval improvement in bilateral lower lobe infiltrates and improving left sided effusion as deta iled above. 2. Interval removal of the endotracheal tube with placement of a tracheostomy. Tip is appropriately p ositioned at the clavicular head. Nura Cook MD on February 19, 2017 at 9:50 Board Certified Radiologist. This report was verified electronically.
[2017-02-19 10:11] LABS: MAGNESIUM 2.1 MG/DL (1.5-2.5); PHOSPHORUS 3.4 MG/DL (2.5-4.9)
[2017-02-19] MEDS ORDERED: PEG (High)/E-LYTE SOLN 4000 ML BTL PO ONE (10:45)
--- NOTE | 2017-02-19 10:53 | PD.CONS ---
HPI History of Present Illness This is a 71 year old female here in the intensive care setting since 2016. Patient has PEG tube and was seen per GI on 02/05/17. We have been reconsulted for rectal mass seen on recent CT, ; Possible need for colonoscopy for further evaluation. Patient is awake and shakes her head to yes/no questions, but unable to speak due to Trach. Patient has tube feedings low dose , and still has some tenderness at PEG site. Shakes head no to nausea , vomiting, no epigastric pain, no heartburn. Unknown last colonoscopy date, EGD with Dilatation according to notes, 11/2016. Denies any rectal bleeding. (Lisbeth Calvert) PFSH Past Medical History Colon Cancer in 2004 status post chemotherapy Anxiety Pneumonia Hyponatremia . Past Surgical History Partial colon resection for colon cancer-14 years ago Esophageal dilatation , 11/2016 Left hip replacement in 2013 . (Lisbeth Calvert) Coded Allergies: Penicillins (Verified Allergy, Unknown, 02/04/17) Medications Administered Medications Medications (Trade) Dose Ordered Sig/Celine Route PRN Reason Start Time Stop Time Status Last Admin Dose Admin Sodium Chloride (NS Flush) 2 ml BID IV FLUSH 02/04/17 21:00 02/19/17 08:50 Albuterol/ Ipratropium (Duoneb Neb) 1 ampule Q4HR NEB PRN INH SHORTNESS OF BREATH 02/04/17 14:00 02/05/17 17:35 Chlorhexidine Gluconate (Peridex 0.12% Liq) 15 ml BID@08,20 MT 02/04/17 20:00 02/19/17 08:49 Chlorhexidine Gluconate (Chlorhexidine 2% Cloth) Taper DAILY@04 TOP 02/05/17 04:00 02/01/18 03:59 02/18/17 04:00 Enoxaparin Sodium (Lovenox Inj) 40 mg Q24H SQ 02/04/17 20:00 Future Hold 02/15/17 20:46 Potassium Chloride 100 ml @ 50 mls/hr Q2H PRN IV For Potassium 2.8 - 3.2 mEq/L 02/06/17 16:00 02/19/17 08:48 Potassium Bicarb/ Potassium Chloride (K-Lyte Cl Eff) 50 meq UNSCH PRN PO For Potassium 3.3 - 3.5 mEq/L 02/06/17 16:00 02/17/17 16:49 Magnesium Oxide (Mag-Ox) 800 mg UNSCH PRN PO For Magnesium 1.2 - 1.6 mg/dL 02/06/17 16:00 02/07/17 12:20 Sodium Phosphate 30 mmol/Sodium Chloride 250 ml @ 42 mls/hr UNSCH PRN IV For Phosphorus < 2.5 mg/dL 02/06/17 16:00 02/08/17 08:46 Potassium Phosphate 30 mmol/ Sodium Chloride 260 ml @ 42 mls/hr UNSCH PRN IV SEE LABEL COMMENTS 02/06/17 16:00 02/11/17 14:36 Acetaminophen (Tylenol 650 Mg/ 20 ml Liq) 650 mg Q6H PRN PO Fever, headaches 02/09/17 15:30 02/17/17 01:42 Dextrose (D50w (Vial) Inj) 50 ml UNSCH PRN IV PUSH HYPOGLYCEMIA-SEE COMMENTS 02/10/17 16:15 02/14/17 23:44 Insulin Human Regular (NovoLIN R SUPPLEMENTAL SCALE) 1 Q4HR SQ 02/10/17 16:15 02/19/17 08:00 Insulin Detemir (Levemir Inj) 5 units Q12HR SQ 02/11/17 10:15 02/19/17 08:50 Prednisone (predniSONE LIQ) 30 mg Taper DAILY PO 02/17/17 09:00 02/23/17 08:59 02/19/17 08:49 Melatonin (Melatonin) 5 mg HS PO 02/17/17 21:00 02/18/17 20:43 Albuterol/ Ipratropium (Duoneb Neb) 1 ampule Q4HR NEB NEB 02/17/17 20:00 02/19/17 07:52 Alprazolam (Xanax) 0.5 mg Q6H PRN PO ANXIETY 02/17/17 18:45 02/17/17 21:42 Famotidine (Pepcid) 20 mg DAILY NG 02/19/17 09:00 02/19/17 08:49 Potassium Chloride (KCl Powder) 40 meq UNSCH PRN PO FOR K+ = 2.9 02/19/17 09:15 02/19/17 09:31 Family History Father from implications of an aneurysm Mother is still leaving it age 95 and is healthy Sister is still living, has a ray immune disease-she has a tracheostomy . Social History no toxic habits (Lisbeth Calvert) GI Exam Vitals I&O Vital Signs Date Time Temp Pulse Resp B/P (MAP) Pulse Ox O2 Delivery O2 Flow Rate FiO2 02/19/17 07:52 100 30 02/19/17 07:52 30 02/19/17 06:00 81 02/19/17 04:00 98.3 87 16 127/59 (81) 100 02/19/17 04:00 87 02/19/17 04:00 30 02/19/17 03:43 100 30 02/19/17 02:00 87 02/19/17 00:00 90 02/19/17 00:00 30 02/19/17 00:00 98.3 90 16 117/57 (77) 100 02/18/17 23:29 99 30 02/18/17 22:00 92 02/18/17 21:00 30 02/18/17 20:00 90 02/18/17 20:00 30 02/18/17 20:00 100 30 02/18/17 20:00 98.7 90 20 103/51 (68) 100 02/18/17 19:00 88 02/18/17 18:30 87 02/18/17 18:00 92 02/18/17 17:30 91 02/18/17 17:00 90 02/18/17 16:30 93 02/18/17 16:00 98.7 97 21 94/56 (69) 97 02/18/17 16:00 97 02/18/17 16:00 30 02/18/17 15:30 100 93/59 (70) 97 02/18/17 15:00 96 02/18/17 15:00 96 89/54 (66) 97 02/18/17 14:31 98 30 02/18/17 14:30 96 87/59 (68) 98 02/18/17 14:00 95 109/57 (74) 99 02/18/17 14:00 95 02/18/17 13:30 95 120/59 (79) 100 02/18/17 13:00 95 124/60 (81) 100 02/18/17 13:00 95 02/18/17 12:30 93 140/62 (88) 100 02/18/17 12:23 100 30 02/18/17 12:00 98.3 95 96/70 (79) 100 02/18/17 12:00 30 02/18/17 12:00 95 02/18/17 11:30 88 104/55 (71) 100 02/18/17 11:00 88 02/18/17 11:00 88 103/56 (72) 100 I/O 02/18/17 02/18/17 02/18/17 02/19/17 02/19/17 02/19/17 06:59 14:59 22:59 06:59 14:59 22:59 Intake Total 300 ml 804 ml 507 ml Output Total 1800 ml 1600 ml 650 ml Balance -1500 ml -796 ml -143 ml IV Total 100 ml Tube Feeding 300 ml 584 ml 507 ml Other 120 ml Output Urine Total 1800 ml 1600 ml 650 ml Tube Feeding Residual Discard 0 ml # Bowel Movements 2 2 1 Laboratory Test 02/19/17 04:26 02/19/17 10:00 White Blood Count 9.7 TH/MM3 Red Blood Count 3.02 MIL/MM3 Hemoglobin 8.9 GM/DL Hematocrit 26.0 % Mean Corpuscular Volume 86.1 FL Mean Corpuscular Hemoglobin 29.5 PG Mean Corpuscular Hemoglobin Concent 34.2 % Red Cell Distribution Width 15.9 % Platelet Count 145 TH/MM3 Mean Platelet Volume 8.9 FL Blood Urea Nitrogen 55 MG/DL Creatinine 0.88 MG/DL Random Glucose 171 MG/DL Calcium Level 7.9 MG/DL Phosphorus Level 3.4 MG/DL Magnesium Level 2.1 MG/DL Sodium Level 133 MEQ/L Potassium Level 2.9 MEQ/L Chloride Level 94 MEQ/L Carbon Dioxide Level 30.5 MEQ/L Anion Gap 9 MEQ/L Estimat Glomerular Filtration Rate 63 ML/MIN Blood Gas Puncture Site RT RADIAL Blood Gas Patient Temperature 98.6 Blood Gas HCO3 30 mmol/L Blood Gas Base Excess 5.8 mmol/L Blood Gas Oxygen Saturation 95 % Arterial Blood pH 7.47 Arterial Blood Partial Pressure CO2 42 mmHg Arterial Blood Partial Pressure O2 90 mmHg Arterial Blood Oxygen Content 10.9 Vol % Arterial Blood Carboxyhemoglobin 1.2 % Arterial Blood Methemoglobin 1.0 % Blood Gas Hemoglobin 8.0 G/DL Oxygen Delivery Device VENTILATOR Blood Gas Ventilator Setting CPAP/PEEP5/PS10 Blood Gas Inspired Oxygen 30 % Date/Time Source Procedure Growth Status 02/04/17 11:35 Blood Peripheral Aerobic Blood Culture - Final NO GROWTH IN 5 DAYS Complete 02/04/17 11:35 Blood Peripheral Anaerobic Blood Culture - Final NO GROWTH IN 5 DAYS Complete 02/14/17 12:24 Sputum Endotracheal Gram Stain - Final Complete 02/14/17 12:24 Sputum Endotracheal Sputum Culture - Final RARE GROWTH NORMAL RESPIRATORY RADHA Complete Physical Examination HEENT: Pupils round and reactive to light; normocephalic; atraumatic; no jaundice. NECK: Neck is supple, no JVD, no lymphadenopathy.trach CHEST: Chest few rhonchi CARDIAC: Regular rate and rhythm with no murmur gallop or rubs. ABDOMEN: Soft, nondistended, mild tenderness at PEG site; no hepatosplenomegaly ; bowel sounds active EXTREMITIES: No clubbing, cyanosis, or edema. SKIN: pale, thin turgor; no rash; no jaundice. CLINICAL PROGRAM MANAGER: Doesnt speak secondary to Trach. Nodds head to simple conversation (Lisbeth Calvert) Assessment and Plan Assessment: (1) Hx of colectomy ICD Codes: Z98.890 - Other specified postprocedural states; Z90.49 - Acquired absence of other specified parts of digestive tract (2) Hx of malignant neoplasm of colon ICD Codes: Z85.038 - Personal history of other malignant neoplasm of large intestine (3) Cholelithiases ICD Codes: K80.20 - Calculus of gallbladder without cholecystitis without obstruction (4) Rectal abnormality ICD Codes: K62.9 - Disease of anus and rectum, unspecified (5) Rectal mass ICD Codes: K62.9 - Disease of anus and rectum, unspecified Plan ASSESSMENT -HX of dysphagia, poor PO intake - could be multifactorial. hx esophageal stricture requiring dilatation and EGD with ped scope. 11/2016 - rectal mass seen on CT, HX of colon cancer 2003, unknown last colonoscopy , patient from [place]. - chronic diarrhea - 2003, hx colon ca PLAN Colonoscopy in am NPO at Midnight, remove tube feedings when Go- lytely starts. Hold any blood thinners. Go lytely per PEG Treatment needs based on findings This pt seen by myself and Dr Hansen and this note is written on his behalf (Lisbeth Calvert) Physician Comments Plan as above, will schedule sigmoidoscopy/Colonoscopy to role malignant lesion. Patient seen at the bedside prior to colonoscopy, currently refusing the procedure and appeared alert and oriented. Will cancel the procedure per patient request. Please notify us if patient agrees in the coming days. (Renea Hansen MD) Lisbeth Calvert Feb 19, 2017 10:53 Renea Hansen MD Feb 20, 2017 06:45
[2017-02-19] MEDS: ALPRAZolam 0.5 MG TAB PO PRN (16:58)
--- NOTE | 2017-02-19 17:51 | HHI.PR ---
Subjective Remarks 71 YOWF with VDRF,Bibasilar infilt Sedated with Fentanyl BP borderline gets anxious Tolerating CPAP Grand daughter at BS Objective Vital Signs Vital Signs Date Time Temp Pulse Resp B/P (MAP) Pulse Ox O2 Delivery O2 Flow Rate FiO2 02/19/17 16:55 100 30 02/19/17 12:00 87 02/19/17 12:00 30 02/19/17 12:00 98.9 87 28 120/56 (77) 100 02/19/17 11:33 100 30 02/19/17 11:30 87 30 121/58 (79) 100 02/19/17 11:30 87 02/19/17 11:00 88 23 119/56 (77) 100 02/19/17 11:00 88 02/19/17 10:30 96 24 114/60 (78) 100 02/19/17 10:30 96 02/19/17 10:00 95 02/19/17 10:00 95 26 112/58 (76) 100 02/19/17 09:30 102 28 107/54 (71) 100 02/19/17 09:30 102 02/19/17 09:00 85 02/19/17 09:00 85 26 102/53 (69) 100 02/19/17 08:30 84 24 100/53 (69) 100 02/19/17 08:30 84 02/19/17 08:00 79 02/19/17 08:00 99.1 79 17 99/53 (68) 100 02/19/17 08:00 30 02/19/17 07:52 100 30 02/19/17 07:52 30 02/19/17 07:30 79 02/19/17 07:00 84 02/19/17 06:00 81 02/19/17 04:00 98.3 87 16 127/59 (81) 100 02/19/17 04:00 87 02/19/17 04:00 30 02/19/17 03:43 100 30 02/19/17 02:00 87 02/19/17 00:00 90 02/19/17 00:00 30 02/19/17 00:00 98.3 90 16 117/57 (77) 100 02/18/17 23:29 99 30 02/18/17 22:00 92 02/18/17 21:00 30 02/18/17 20:00 90 02/18/17 20:00 30 02/18/17 20:00 100 30 02/18/17 20:00 98.7 90 20 103/51 (68) 100 02/18/17 19:00 88 02/18/17 18:30 87 02/18/17 18:00 92 I/O 02/18/17 02/18/17 02/18/17 02/19/17 02/19/17 02/19/17 07:00 15:00 23:00 07:00 15:00 23:00 Intake Total 300 ml 804 ml 507 ml Output Total 1800 ml 1600 ml 650 ml Balance -1500 ml -796 ml -143 ml IV Total 100 ml Tube Feeding 300 ml 584 ml 507 ml Other 120 ml Output Urine Total 1800 ml 1600 ml 650 ml Tube Feeding Residual Discard 0 ml # Bowel Movements 2 2 1 Result Diagram: 02/19/17 0426 02/19/17 1600 Objective Remarks GENERAL: Frail elderly female, on Vent SKIN: Warm and dry. HEAD: Normocephalic. EYES: No scleral icterus. No injection or drainage. NECK: Supple, trachea midline. No JVD or lymphadenopathy. CARDIOVASCULAR: Regular rate and rhythm without murmurs, gallops, or rubs. RESPIRATORY: Breath sounds equal bilaterally. No accessory muscle use. GASTROINTESTINAL: Abdomen soft, non-tender, nondistended. MUSCULOSKELETAL: No cyanosis, or edema. BACK: Nontender without obvious deformity. No CVA tenderness. A/P Assessment and Plan VDRF, s/p Trach 02/16 Bibasilar infilterates Hypotension Anxiety H/O Ca colon Weight loss PLAN: Dw pt's Grand daughter Cont Abx Vanco, Cefepime and Zithro IV Solumedrol Xanax 0.5 mg q 6 hrs Trach care Daily CPAP trial Colonoscopy in AM Yusef Hernandez MD Feb 19, 2017 17:51
[2017-02-19] MEDS: MELATONIN 5 MG TAB PO SCH (21:35)
[2017-02-20] VITALS (21 sets, daily range): BP systolic 96–127; BP diastolic 50–68; PULSE 66–91; RESP 12–50; TEMP 95–99.3; O2SAT 99–100
[2017-02-20] MEDS: RESP: ALBUTEROL 2.5 MG/IPRATROPIUM 0.5 MG NEB (SCH) NEB ×5 (03:08→19:39)
[2017-02-20] MEDS: INSULIN NovoLIN REGULAR SUPPLEMENTAL SCALE SQ SCH ×6 (04:00→20:00)
[2017-02-20 05:43] LABS: AUTOMATED NEUTROPHIL # 6.9 TH/MM3 (1.8-7.7); BASOPHIL % 0.1 % (0.0-2.0); HEMATOCRIT 21.3 % (35.0-46.0); HEMOGLOBIN 7.5 GM/DL (11.6-15.3); LYMPH % 5.4 % (9.0-44.0); LYMPHOCYTE # 0.4 TH/MM3 (1.0-4.8); MEAN CELL VOLUME 84.6 FL (80.0-100.0); MEAN CORPUSCULAR HEMOGLOBIN 29.7 PG (27.0-34.0); MEAN CORPUSCULAR HGB CONC 35.2 % (32.0-36.0); MEAN PLATELET VOLUME 8.9 FL (7.0-11.0); MONO % 5.3 % (0.0-8.0); MONOCYTE # 0.4 TH/MM3 (0-0.9); NEUT % 89.2 % (16.0-70.0); PLATELET COUNT 153 TH/MM3 (150-450); RED BLOOD COUNT 2.52 MIL/MM3 (4.00-5.30); RED CELL DISTRIBUTION WIDTH 15.8 % (11.6-17.2); WHITE BLOOD COUNT 7.8 TH/MM3 (4.0-11.0)
[2017-02-20 07:24] LABS: BICARBONATE 27.7 MEQ/L (21.0-32.0); CREATININE 0.78 MG/DL (0.50-1.00); PHOSPHORUS 2.6 MG/DL (2.5-4.9)
[2017-02-20] MEDS: INSULIN DETEMIR 100 UNITS/ML VIAL SQ SCH ×2 (07:53→21:00)
[2017-02-20] MEDS: SODIUM CHLORIDE 0.9% FLUSH 10 ML FLUSH IV FLUSH SCH ×2 (08:24→21:03)
[2017-02-20] MEDS: ALPRAZolam 0.5 MG TAB PO PRN ×2 (08:24→14:01)
[2017-02-20] MEDS: FAMOTIDINE 20 MG TAB NG SCH (08:25)
[2017-02-20] MEDS: CHLORHEXIDINE 0.12% (ORAL KIT) 15 ML CUP MT SCH ×2 (08:25→21:04)
[2017-02-20] MEDS: predniSONE 5 MG/5 ML CUP PO SCH (08:25)
--- NOTE | 2017-02-20 09:32 | HHI.CCPN ---
Subjective Remarks/Hospital Course 02/04: 71-year-old female with a medical history significant for colon cancer in 2003 for which she underwent partial colon resection and chemotherapy, esophageal stricture with significant weight loss due to poor by mouth intake for which she was hospitalized in [place] in November 2016 for 2 weeks treated for pneumonia and subsequently evaluated for dysphagia and was found to have a sufficient stricture for which she was transferred to [facility] in [place] and underwent esophageal dilatation and was subsequently discharged 2 weeks later on a pured diet. Patient moved to [place] with her granddaughter and a few beats VAC was admitted to [facility] for worsening shortness of breath and was diagnosed with a pneumonia, hyponatremia. She was treated with antibiotics and subsequently discharged home however the following day had to be readmitted at [facility] for unresolved shortness of breath where she was hospitalized for a week and [facility] to this admission. Patient's by mouth intake has been poor since her discharge 3 days back according to her granddaughter as the pured diet at the prison is to take. Patient was found to have altered mental status today and was found slumped to one side with poor respirations. EMS was called and patient was noted to have O2 sats in the 60s. She was transported to the emergency room where she was placed on BiPAP for respiratory distress with hypoxic respiratory failure. She was also noted to be hypertensive on arrival with systolic blood pressure in the 200s. Patient was also found to have a sodium of 118. I was contacted by ER physician and accepted patient for admission to the ICU. When I evaluated the patient in the ER she was on BiPAP with full facemask. History was obtained by discussion with patient's granddaughter was at the bedside. Patient was much more awake at this time and trying to communicate however in view of BiPAP requirement was difficult to communicate with. She denied any chest pain at the time. Patient has chronic diarrhea since her colon surgery in 2003. Per the granddaughter she was doing well till about 3 months ago when she started having significant weight loss and poor by mouth intake possibly related to esophageal stricture and the fact that she was taking care of her sick family member at home. She has been advised a PEG tube per the granddaughter because of her poor nutritional status and poor by mouth intake. She has had problems with hyponatremia off and on for a while. Patient's granddaughter is very concerned about her poor nutritional status. 02/05: Tolerating nasal cannula. Underwent PEG tube placement by IR today. Sodium 122. 02/06 No events overnight. s/p PEG tube placement yesterday. Sodium level 131 this morning 02/07 No events overnight. On 50% VM with good sats. 02/08 No events overnight. Afebrile . Off BIPAP. 02/09 Patient is on BIPAP 02/03 with 45% FIO2> Afebrile. 02/10 Patient was intubated early this morning for acute hypercapnic resp acidosis. Afebrile. 02/11 No events overnight. Patient remains intubated. Afebrile. 02/12 Patient remains intubated and on Precedex drip for sedation. Afebrile. 02/13 Patient was extubated yesterday and reintubated late afternoon for acute resp acidosis. afebrile. 02/14: remains intubated. appears very weak. long conversation with granddaughter and medical decision-maker at bedside. likely will require tracheostomy given repeat re-intubations and chronic debilitation. granddaughter requests we wait until thursday or thursday, and requests it be done in the OR and not at bedside. 02/15: wake and more alert. however, only tolerated 10 minutes of CPAP before becoming tachypneic and failing. gen surg consulted for trach: family requests OR trach due to concerns over infection risk at bedside. I counseled patient's family that there was no increased risk of infection, and the trachea is inherently an unsterile environment with endotracheal tube in place, but family insists on OR trach. hypernatremia slightly worse despite increasing free water. 02/16: still awake and alert. failed CPAP again today. plan for trach today. 02/17: s/p trach yesterday. doing well. still failing CPAP for weakness and tachypnea. needs LTAC. hyponatremia and hypokalemia: kcl replacement and holding free water. 02/18: sodium improving. doing well. needs aggressive PT. 02/19 No events overnight. On ventilator via trach. Afebrile. 02/20 No events overnight. For Colonoscopy today. Afebrile. Objective Vital Signs Date Time Temp Pulse Resp B/P (MAP) Pulse Ox O2 Delivery O2 Flow Rate FiO2 02/20/17 09:00 74 16 108/53 (71) 100 02/20/17 08:30 30 02/20/17 08:00 98.7 Intake and Output 02/20/17 02/20/17 02/21/17 08:00 16:00 00:00 Intake Total 3040 ml Output Total 1750 ml Balance 1290 ml Result Diagram: 02/20/17 0454 02/20/17 0522 Other Results Last Impressions Chest X-Ray 02/19/17 0000 Signed Impressions: Service Date/Time: January 08:52 - CONCLUSION: 1. Interval improvement in bilateral lower lobe infiltrates and improving left sided effusion as detailed above. 2. Interval removal of the endotracheal tube with placement of a tracheostomy. Tip is appropriately positioned at the clavicular head. Nura Cook MD Abdomen/Pelvis CT 02/14/17 0000 Signed Impressions: Service Date/Time: Tuesday, February 14, 2017 23:14 - CONCLUSION: 1. Nonspecific small ascites with bilateral pleural effusions and body wall edema/anasarca. No abscess demonstrated. 2. Possible mass of the lower rectum and please correlate clinically. 3. Gastric feeding tube with tip in the lower body. 4. Sigmoid colon diverticulosis without perceptible acute inflammatory changes. 5. Cholelithiasis without evidence of cholecystitis or biliary obstruction. Phan Lomas MD Gastrostomy Tube Placement 02/05/17 0000 Signed Impressions: Service Date/Time: January 16:47 - CONCLUSION: Uncomplicated gastrostomy tube placement as above. Jorje Josue MD Lower Extremity Ultrasound 02/04/17 0000 Signed Impressions: Service Date/Time: Saturday, February 04, 2017 21:13 - CONCLUSION: 1. No evidence of deep venous thrombosis within the lower extremities. 2. Popliteal cyst on the left measuring 2.2 x 1.5 x 0.9 cm. Julian Mcmahan MD Head CT 02/04/17 0000 Signed Impressions: Service Date/Time: Saturday, February 04, 2017 17:50 - CONCLUSION: 1. No acute intracranial abnormality. 2. Tiny fluid level within the right maxillary sinus. Julian Mcmahan MD CT Angiography 02/04/17 0000 Signed Impressions: Service Date/Time: Saturday, February 04, 2017 17:54 - CONCLUSION: 1. No evidence of pulmonary embolism. 2. Bibasilar alveolar consolidations as well as scattered perihilar patchy opacities suggestive of probable pneumonia. Clinical correlation is recommended. 3. 1.7 cm right thyroid nodule. Julian Mcmahan MD Abdomen X-Ray 02/04/17 0000 Signed Impressions: Service Date/Time: January 05:52 - CONCLUSION: Interval placement of nasogastric tube with the tip in the left mainstem bronchus. Caesar Ramos MD Imaging Last Impressions Abdomen/Pelvis CT 02/14/17 0000 Signed Impressions: Service Date/Time: Tuesday, February 14, 2017 23:14 - CONCLUSION: 1. Nonspecific small ascites with bilateral pleural effusions and body wall edema/anasarca. No abscess demonstrated. 2. Possible mass of the lower rectum and please correlate clinically. 3. Gastric feeding tube with tip in the lower body. 4. Sigmoid colon diverticulosis without perceptible acute inflammatory changes. 5. Cholelithiasis without evidence of cholecystitis or biliary obstruction. Phan Lomas MD Chest X-Ray 02/13/17 0000 Signed Impressions: Service Date/Time: Monday, February 13, 2017 09:59 - CONCLUSION: No significant change in the bilateral pulmonary infiltrates, left greater than right. Brett Persaud MD Gastrostomy Tube Placement 02/05/17 0000 Signed Impressions: Service Date/Time: January 16:47 - CONCLUSION: Uncomplicated gastrostomy tube placement as above. Jorje Josue MD Lower Extremity Ultrasound 02/04/17 0000 Signed Impressions: Service Date/Time: Saturday, February 04, 2017 21:13 - CONCLUSION: 1. No evidence of deep venous thrombosis within the lower extremities. 2. Popliteal cyst on the left measuring 2.2 x 1.5 x 0.9 cm. Julian Mcmahan MD Head CT 02/04/17 0000 Signed Impressions: Service Date/Time: Saturday, February 04, 2017 17:50 - CONCLUSION: 1. No acute intracranial abnormality. 2. Tiny fluid level within the right maxillary sinus. Julian Mcmahan MD CT Angiography 02/04/17 0000 Signed Impressions: Service Date/Time: Saturday, February 04, 2017 17:54 - CONCLUSION: 1. No evidence of pulmonary embolism. 2. Bibasilar alveolar consolidations as well as scattered perihilar patchy opacities suggestive of probable pneumonia. Clinical correlation is recommended. 3. 1.7 cm right thyroid nodule. Julian Mcmahan MD Abdomen X-Ray 02/04/17 0000 Signed Impressions: Service Date/Time: January 05:52 - CONCLUSION: Interval placement of nasogastric tube with the tip in the left mainstem bronchus. Caesar Ramos MD Objective Remarks GENERAL: frail elderly female, lying in bed, trach in place SKIN: Warm and dry. HEAD: Normocephalic. EYES: No scleral icterus. No injection or drainage. NECK: trachea midline. No JVD. trach in place. CARDIOVASCULAR: normal rate, regular rhythm. appears sinus by tele. RESPIRATORY: PSV 12. peep 5. GASTROINTESTINAL: Abdomen soft, non-tender, nondistended. no guarding. MUSCULOSKELETAL: No cyanosis, or edema. Neuro: RASS -1. follows commands. moves all extremities. A/P Assessment and Plan Assessment: 71yF with at least a 3 month chronic course of failure to thrive and weight loss, esophageal stricture, and now recurrent hypoxic and hypercarbic respiratory failure requiring multiple intubations. She needs aggressive pulmonary rehab in an LTAC type facility. Plan: Neuro: Acute metabolic encephalopathy Anxiety Insomnia - Monitor neuro status. On no sedation family have asked that we avoid fentanyl, versed, and propofol because in their past experience, she has reacted poorly to these. they request Precedex only. Xanax to 0.5mg po q6h prn melatonin 5mg po qHS for sleep CV: Monitor HR and BP keep MAP>65mmHg Pulm: Recurrent acute hypercarbic and hypoxic respiratory failure likely secondary to deconditioning and weakness. likely also large component of silent or overt aspiration and inability to control secretions. Continue with vent support keep sat >92% Bronchodilators. ICU vent bundle. CT chest with no evidence of PE and shows bibasilar infiltrates concerning for recurrent aspiration pneumonia Pulm is following. continue daily SBTs. needs LTAC. s/p trach 02/[address] Chaudhry prednisone taper. GI/liver: Failure to thrive Hypernatremia- resolved. Free water deficit- resolved. Chronic diarrhea History of esophageal stricture status post recent esophageal dilation History of colon cancer Acute protein calorie malnutrition - severe hyponatremia- improving. s/p PEG tube placement by IR 02/05 Tube feeds(Jevity 1.5 @ 40ml/hr) held for colonoscopy today GI is following for ? rectal mass on CT abdomen. Renal/: Acute intravascular volume overload- improving. Metabolic alkalosis Monitor renal function, I/O's, electrolytes replacement per protocol. ID: Healthcare Associated Pneumonia- resolved. s/p full course abx. monitor off abx. ID following. Endocrine: Hyperglycemia of Critical Illness SSI for glycemic control Levemir 5u Q12 Heme-onc: Anemia secondary to chronic disease Monitor CBC Prophylaxis: Pepcid/SCDs. Subq Lovenox. held for thrombocytopenia and anemia requiring blood transfusion Palliative care is following Level 3 Varun Yusuf MD Feb 20, 2017 09:32
[2017-02-20 17:21] LABS: HEMATOCRIT 28.1 % (35.0-46.0); HEMOGLOBIN 9.1 GM/DL (11.6-15.3)
--- NOTE | 2017-02-20 18:03 | HHI.PR ---
Subjective Remarks 71 YOWF with VDRF,Bibasilar infilt Sedated with Fentanyl BP borderline gets anxious On Trach collar refused Colonoscopy Objective Vital Signs Vital Signs Date Time Temp Pulse Resp B/P (MAP) Pulse Ox O2 Delivery O2 Flow Rate FiO2 02/20/17 16:00 30 02/20/17 16:00 97.8 86 26 108/58 (75) 100 02/20/17 16:00 86 02/20/17 15:00 87 24 111/56 (74) 100 02/20/17 14:00 80 26 107/55 (72) 99 02/20/17 14:00 80 02/20/17 13:00 30 02/20/17 13:00 79 127/56 (79) 100 02/20/17 12:48 100 T-piece 40 02/20/17 12:00 77 02/20/17 12:00 30 02/20/17 12:00 97.8 77 14 96/68 (77) 100 02/20/17 11:00 75 12 104/54 (71) 100 02/20/17 10:00 69 02/20/17 10:00 69 15 99/50 (66) 100 02/20/17 09:00 74 16 108/53 (71) 100 02/20/17 08:30 30 02/20/17 08:00 66 02/20/17 08:00 98.7 66 18 112/52 (72) 100 02/20/17 08:00 30 02/20/17 07:51 100 30 02/20/17 07:51 30 02/20/17 06:00 66 02/20/17 04:07 100 30 02/20/17 04:00 98.7 66 44 109/50 (69) 100 02/20/17 04:00 30 02/20/17 04:00 66 02/20/17 02:00 69 02/20/17 02:00 74 02/20/17 00:51 100 30 02/20/17 00:00 69 02/20/17 00:00 30 02/20/17 00:00 98.8 69 50 110/51 (70) 100 02/19/17 22:00 77 02/19/17 21:00 100 30 02/19/17 20:00 83 02/19/17 20:00 30 02/19/17 20:00 99.0 83 59 109/53 (71) 100 02/19/17 18:30 96 32 116/57 (76) 100 I/O 02/19/17 02/19/17 02/19/17 02/20/17 02/20/17 02/20/17 07:00 15:00 23:00 07:00 15:00 23:00 Intake Total 507 ml 1444 ml 3040 ml Output Total 650 ml 600 ml 1750 ml Balance -143 ml 844 ml 1290 ml Tube Feeding 507 ml 484 ml Other 960 ml 3040 ml Output Urine Total 650 ml 600 ml 750 ml Stool Total 1000 ml # Bowel Movements 1 1 1 Result Diagram: 02/20/17 1645 02/20/17 0522 Objective Remarks GENERAL: Frail elderly female, on Vent SKIN: Warm and dry. HEAD: Normocephalic. EYES: No scleral icterus. No injection or drainage. NECK: Supple, trachea midline. No JVD or lymphadenopathy. CARDIOVASCULAR: Regular rate and rhythm without murmurs, gallops, or rubs. RESPIRATORY: Breath sounds equal bilaterally. No accessory muscle use. GASTROINTESTINAL: Abdomen soft, non-tender, nondistended. MUSCULOSKELETAL: No cyanosis, or edema. BACK: Nontender without obvious deformity. No CVA tenderness. A/P Assessment and Plan VDRF, s/p Trach 02/16 Bibasilar infilterates Hypotension Anxiety H/O Ca colon Weight loss PLAN: Dw pt's Grand daughter Cont Abx Vanco, Cefepime and Zithro IV Solumedrol Xanax 0.5 mg q 6 hrs Trach care Cont trach collar Yusef Hernandez MD Feb 20, 2017 18:03
[2017-02-20] MEDS: MELATONIN 5 MG TAB PO SCH (21:03)
[2017-02-21] VITALS (22 sets, daily range): BP systolic 119–166; BP diastolic 58–91; PULSE 74–109; RESP 20–73; TEMP 98.1–99.3; O2SAT 95–100
[2017-02-21] MEDS: RESP: ALBUTEROL 2.5 MG/IPRATROPIUM 0.5 MG NEB (SCH) NEB ×5 (00:23→15:28)
[2017-02-21] MEDS: INSULIN NovoLIN REGULAR SUPPLEMENTAL SCALE SQ SCH ×7 (04:00→20:38)
[2017-02-21] MEDS: CHLORHEXIDINE GLUCONATE 2 % 1 PACK (2 CLOTHS) TOP SCH ×2 (04:00→20:35)
[2017-02-21] MEDS: ALPRAZolam 0.5 MG TAB PO PRN ×2 (04:20→20:16)
[2017-02-21 07:09] LABS: AUTOMATED NEUTROPHIL # 9.6 TH/MM3 (1.8-7.7); BASOPHIL % 0.2 % (0.0-2.0); EOSINOPHIL % 0.2 % (0.0-4.0); HEMATOCRIT 28.7 % (35.0-46.0); HEMOGLOBIN 9.5 GM/DL (11.6-15.3); LYMPH % 6.7 % (9.0-44.0); LYMPHOCYTE # 0.7 TH/MM3 (1.0-4.8); MEAN CELL VOLUME 88.5 FL (80.0-100.0); MEAN CORPUSCULAR HEMOGLOBIN 29.2 PG (27.0-34.0); MEAN PLATELET VOLUME 8.2 FL (7.0-11.0); MONO % 5.8 % (0.0-8.0); MONOCYTE # 0.6 TH/MM3 (0-0.9); NEUT % 87.1 % (16.0-70.0); PLATELET COUNT 236 TH/MM3 (150-450); RED BLOOD COUNT 3.25 MIL/MM3 (4.00-5.30); RED CELL DISTRIBUTION WIDTH 16.7 % (11.6-17.2); WHITE BLOOD COUNT 11.1 TH/MM3 (4.0-11.0)
[2017-02-21 07:24] LABS: BICARBONATE 28.3 MEQ/L (21.0-32.0); CALCIUM 8.2 MG/DL (8.5-10.1); CREATININE 0.61 MG/DL (0.50-1.00)
--- NOTE | 2017-02-21 08:55 | HHI.CCPN ---
Subjective Remarks/Hospital Course 02/04: 71-year-old female with a medical history significant for colon cancer in 2003 for which she underwent partial colon resection and chemotherapy, esophageal stricture with significant weight loss due to poor by mouth intake for which she was hospitalized in [place] in November 2016 for 2 weeks treated for pneumonia and subsequently evaluated for dysphagia and was found to have a sufficient stricture for which she was transferred to [facility] in [place] and underwent esophageal dilatation and was subsequently discharged 2 weeks later on a pured diet. Patient moved to [place] with her granddaughter and a few beats VAC was admitted to [facility] for worsening shortness of breath and was diagnosed with a pneumonia, hyponatremia. She was treated with antibiotics and subsequently discharged home however the following day had to be readmitted at [facility] for unresolved shortness of breath where she was hospitalized for a week and subsequently discharged to halfway 3 days prior to this admission. Patient's by mouth intake has been poor since her discharge 3 days back according to her granddaughter as the pured diet at the halfway is to take. Patient was found to have altered mental status today and was found slumped to one side with poor respirations. EMS was called and patient was noted to have O2 sats in the 60s. She was transported to the emergency room where she was placed on BiPAP for respiratory distress with hypoxic respiratory failure. She was also noted to be hypertensive on arrival with systolic blood pressure in the 200s. Patient was also found to have a sodium of 118. I was contacted by ER physician and accepted patient for admission to the ICU. When I evaluated the patient in the ER she was on BiPAP with full facemask. History was obtained by discussion with patient's granddaughter was at the bedside. Patient was much more awake at this time and trying to communicate however in view of BiPAP requirement was difficult to communicate with. She denied any chest pain at the time. Patient has chronic diarrhea since her colon surgery in 2003. Per the granddaughter she was doing well till about 3 months ago when she started having significant weight loss and poor by mouth intake possibly related to esophageal stricture and the fact that she was taking care of her sick family member at home. She has been advised a PEG tube per the granddaughter because of her poor nutritional status and poor by mouth intake. She has had problems with hyponatremia off and on for a while. Patient's granddaughter is very concerned about her poor nutritional status. 02/05: Tolerating nasal cannula. Underwent PEG tube placement by IR today. Sodium 122. 02/06 No events overnight. s/p PEG tube placement yesterday. Sodium level 131 this morning 02/07 No events overnight. On 50% VM with good sats. 02/08 No events overnight. Afebrile . Off BIPAP. 02/09 Patient is on BIPAP 02/03 with 45% FIO2> Afebrile. 02/10 Patient was intubated early this morning for acute hypercapnic resp acidosis. Afebrile. 02/11 No events overnight. Patient remains intubated. Afebrile. 02/12 Patient remains intubated and on Precedex drip for sedation. Afebrile. 02/13 Patient was extubated yesterday and reintubated late afternoon for acute resp acidosis. afebrile. 02/14: remains intubated. appears very weak. long conversation with granddaughter and medical decision-maker at bedside. likely will require tracheostomy given repeat re-intubations and chronic debilitation. granddaughter requests we wait until thursday or thursday, and requests it be done in the OR and not at bedside. 02/15: wake and more alert. however, only tolerated 10 minutes of CPAP before becoming tachypneic and failing. gen surg consulted for trach: family requests OR trach due to concerns over infection risk at bedside. I counseled patient's family that there was no increased risk of infection, and the trachea is inherently an unsterile environment with endotracheal tube in place, but family insists on OR trach. hypernatremia slightly worse despite increasing free water. 02/16: still awake and alert. failed CPAP again today. plan for trach today. 02/17: s/p trach yesterday. doing well. still failing CPAP for weakness and tachypnea. needs LTAC. hyponatremia and hypokalemia: kcl replacement and holding free water. 02/18: sodium improving. doing well. needs aggressive PT. 02/19 No events overnight. On ventilator via trach. Afebrile. 02/20 No events overnight. For Colonoscopy today. Afebrile. 02/21 Patient refused colonoscopy yesterday. Tolerated TP's during day and placed on CPAP overnight. Afebrile. Objective Vital Signs Date Time Temp Pulse Resp B/P (MAP) Pulse Ox O2 Delivery O2 Flow Rate FiO2 02/21/17 08:42 98 T-piece 6.00 40 02/21/17 06:00 93 02/21/17 04:00 98.2 20 119/58 (78) Intake and Output 02/21/17 02/21/17 02/22/17 08:00 16:00 00:00 Intake Total 492 ml Output Total 250 ml Balance 242 ml Result Diagram: 02/21/1762302/21/17623 Other Results Laboratory Tests Test 02/20/17 16:45 02/21/17 06:24 Hemoglobin 9.1 GM/DL 9.5 GM/DL Hematocrit 28.1 % 28.7 % White Blood Count 11.1 TH/MM3 Red Blood Count 3.25 MIL/MM3 Mean Corpuscular Volume 88.5 FL Mean Corpuscular Hemoglobin 29.2 PG Mean Corpuscular Hemoglobin Concent 33.0 % Red Cell Distribution Width 16.7 % Platelet Count 236 TH/MM3 Mean Platelet Volume 8.2 FL Neutrophils (%) (Auto) 87.1 % Lymphocytes (%) (Auto) 6.7 % Monocytes (%) (Auto) 5.8 % Eosinophils (%) (Auto) 0.2 % Basophils (%) (Auto) 0.2 % Neutrophils # (Auto) 9.6 TH/MM3 Lymphocytes # (Auto) 0.7 TH/MM3 Monocytes # (Auto) 0.6 TH/MM3 Eosinophils # (Auto) 0.0 TH/MM3 Basophils # (Auto) 0.0 TH/MM3 CBC Comment DIFF FINAL Differential Comment Blood Urea Nitrogen 45 MG/DL Creatinine 0.61 MG/DL Random Glucose 106 MG/DL Calcium Level 8.2 MG/DL Sodium Level 138 MEQ/L Potassium Level 3.4 MEQ/L Chloride Level 101 MEQ/L Carbon Dioxide Level 28.3 MEQ/L Anion Gap 9 MEQ/L Estimat Glomerular Filtration Rate 97 ML/MIN Imaging Last Impressions Chest X-Ray 02/19/17 0000 Signed Impressions: Service Date/Time: January 08:52 - CONCLUSION: 1. Interval improvement in bilateral lower lobe infiltrates and improving left sided effusion as detailed above. 2. Interval removal of the endotracheal tube with placement of a tracheostomy. Tip is appropriately positioned at the clavicular head. Nura Cook MD Abdomen/Pelvis CT 02/14/17 0000 Signed Impressions: Service Date/Time: Tuesday, February 14, 2017 23:14 - CONCLUSION: 1. Nonspecific small ascites with bilateral pleural effusions and body wall edema/anasarca. No abscess demonstrated. 2. Possible mass of the lower rectum and please correlate clinically. 3. Gastric feeding tube with tip in the lower body. 4. Sigmoid colon diverticulosis without perceptible acute inflammatory changes. 5. Cholelithiasis without evidence of cholecystitis or biliary obstruction. Phan Lomas MD Gastrostomy Tube Placement 02/05/17 0000 Signed Impressions: Service Date/Time: January 16:47 - CONCLUSION: Uncomplicated gastrostomy tube placement as above. Jorje Josue MD Lower Extremity Ultrasound 02/04/17 0000 Signed Impressions: Service Date/Time: Saturday, February 04, 2017 21:13 - CONCLUSION: 1. No evidence of deep venous thrombosis within the lower extremities. 2. Popliteal cyst on the left measuring 2.2 x 1.5 x 0.9 cm. Julian Mcmahan MD Head CT 02/04/17 0000 Signed Impressions: Service Date/Time: Saturday, February 04, 2017 17:50 - CONCLUSION: 1. No acute intracranial abnormality. 2. Tiny fluid level within the right maxillary sinus. Julian Mcmahan MD CT Angiography 02/04/17 0000 Signed Impressions: Service Date/Time: Saturday, February 04, 2017 17:54 - CONCLUSION: 1. No evidence of pulmonary embolism. 2. Bibasilar alveolar consolidations as well as scattered perihilar patchy opacities suggestive of probable pneumonia. Clinical correlation is recommended. 3. 1.7 cm right thyroid nodule. Julian Mcmahan MD Abdomen X-Ray 02/04/17 0000 Signed Impressions: Service Date/Time: January 05:52 - CONCLUSION: Interval placement of nasogastric tube with the tip in the left mainstem bronchus. Caesar Ramos MD Objective Remarks GENERAL: frail elderly female, lying in bed, trach in place SKIN: Warm and dry. HEAD: Normocephalic. EYES: No scleral icterus. No injection or drainage. NECK: trachea midline. No JVD. trach in place. CARDIOVASCULAR: normal rate, regular rhythm. appears sinus by tele. RESPIRATORY: PSV 12. peep 5. GASTROINTESTINAL: Abdomen soft, non-tender, nondistended. no guarding. MUSCULOSKELETAL: No cyanosis, or edema. Neuro: RASS -1. follows commands. moves all extremities. A/P Assessment and Plan Assessment: 71yF with at least a 3 month chronic course of failure to thrive and weight loss, esophageal stricture, and now recurrent hypoxic and hypercarbic respiratory failure requiring multiple intubations. She needs aggressive pulmonary rehab in an LTAC type facility. Plan: Neuro: Acute metabolic encephalopathy Anxiety Insomnia - Monitor neuro status. On no sedation family have asked that we avoid fentanyl, versed, and propofol because in their past experience, she has reacted poorly to these. they request Precedex only. Xanax to 0.5mg po q6h prn melatonin 5mg po qHS for sleep CV: Monitor HR and BP keep MAP>65mmHg Pulm: Recurrent acute hypercarbic and hypoxic respiratory failure likely secondary to deconditioning and weakness. likely also large component of silent or overt aspiration and inability to control secretions. Continue with vent support keep sat >92% Bronchodilators. ICU vent bundle. TP's as devante during day and CPAP at night. CT chest with no evidence of PE and shows bibasilar infiltrates concerning for recurrent aspiration pneumonia Pulm is following. continue daily SBTs. needs LTAC. s/p trach 02/[address] Chaudhry prednisone taper. GI/liver: Failure to thrive Hypernatremia- resolved. Free water deficit- resolved. Chronic diarrhea History of esophageal stricture status post recent esophageal dilation History of colon cancer Acute protein calorie malnutrition - severe hyponatremia- improving. s/p PEG tube placement by IR 02/05 On Tube feeds(Jevity 1.5 @ 40ml/hr) GI is following for ? rectal mass on CT abdomen. Patient refused colonoscopy. Renal/: Acute intravascular volume overload- improving. Metabolic alkalosis Monitor renal function, I/O's, electrolytes replacement per protocol. ID: Healthcare Associated Pneumonia- resolved. s/p full course abx. monitor off abx. ID following. Endocrine: Hyperglycemia of Critical Illness SSI for glycemic control d/ c Levemir 5u Q12 Heme-onc: Anemia secondary to chronic disease Monitor CBC Prophylaxis: Pepcid/SCDs. Start heparin SQ( H/H stable and no signs of bleeding ) Palliative care is following Awaiting placement in LTAC facility Level 3 Varun Yusuf MD Feb 21, 2017 08:55
[2017-02-21] MEDS: SODIUM CHLORIDE 0.9% FLUSH 10 ML FLUSH IV FLUSH SCH ×2 (09:45→20:16)
[2017-02-21] MEDS: CHLORHEXIDINE 0.12% (ORAL KIT) 15 ML CUP MT SCH ×2 (09:45→20:16)
[2017-02-21] MEDS: predniSONE 5 MG/5 ML CUP PO SCH (09:46)
[2017-02-21] MEDS: FAMOTIDINE 20 MG TAB NG SCH (09:46)
[2017-02-21] MEDS: HEPARIN SODIUM - SQ 10,000 UNITS/ML VIAL SQ SCH ×2 (09:46→20:16)
[2017-02-21] MEDS: POTASSIUM CHLORIDE 25 MEQ EFFERVESCENT TAB PO PRN (09:48)
[2017-02-21] MEDS ORDERED: DEXTROSE 50% IN WATER 50 ML VIAL(D50) IV PUSH PRN (15:30)
[2017-02-21] MEDS ORDERED: GLUCAGON 1 MG/ML VIAL OTHER PRN (15:30)
--- NOTE | 2017-02-21 16:09 | HHI.HCPN ---
Reason for visit a. To assist with evaluation and management of symptoms including:shortness of breath, weakness. b. To assist medical decision maker(s) with: better understanding of current medical conditions; weighing benefits/burdens of medical treatment options; making medical treatment decisions. . Subjective/Interval History Patient seen and examined in ICU. Also present TERE Yi. Discussed with Dr. He and nurse. Dr. He will order tumor markers given rectal mass and history of colon cancer. Afebrile. Vital signs stable. On oxygen via t-piece during day, CPAP at night. WBC 11.1, HGB 9.1, HCT 28.7, platelets 236. Cultures negative to date. Patient is awake and alert. She nods yes/no appropriately. She mouths some words clearly. I asked patient if she refused a colonoscopy, she nods yes. I asked her about her history of colon cancer and if the reason she refused colonoscopy was because of the prep she nods yes. I reviewed the CT scan findings of suspicious rectal mass, she indicates she was not aware. She again nods yes that her goal is too get better, desires aggressive care. I explained if she has a new or recurrent cancer that we do not confirm that she will not get stronger and her condition will get worse as cancers untreated will progress. She nods yes in agreement. I advised her we can try to get some tumor markers to raise or lower our suspicion of malignancy if this might give her more information to determine if she really wants to refuse colonoscopy, she agrees this might help her. We agreed to reevaluate test results after [place] and she will reconsider colonoscopy at that time. She reports discomfort in neck and back and legs due to profound weakness. She wants to be able to get up and move. She repeats frequently during visit how weak her legs are. When asked about PT she is unable to tell me that they are visiting to work on exercises despite note across from her bed to remind her to do exercises. She seems to get more anxious/ frustrated the more she tells me how weak she is. I am unable to distract her from this conversation. Family/friend interactions No family at bedside. . Advance Directives Living Will: Never completed Health Care Surrogate: Copy in medical record Advance Directive Specifics Date completed: December 19, 2016 . Health Care Surrogate(s): Patient appears to be regaining capacity, recommend shared decision making as she is unable to speak due to trach. Patient has designated her granddaughter Connie Cotton as her primary healthcare surrogate and granddaughter`s Freddy Cotton as alternate HCS. . Significant change in goals: FULL CODE. Goals remain aggressive. Patient will consider colonoscopy after [place] pending tumor marker results. . Objective Vital Signs Date Time Temp Pulse Resp B/P (MAP) Pulse Ox O2 Delivery O2 Flow Rate FiO2 02/21/17 12:00 98.3 92 27 130/66 (87) 100 02/21/17 12:00 92 02/21/17 12:00 40 02/21/17 11:00 97 33 158/67 (97) 97 02/21/17 10:00 99 02/21/17 10:00 99 33 166/73 (104) 96 02/21/17 09:00 102 37 160/71 (100) 96 02/21/17 08:42 98 T-piece 6.00 40 02/21/17 08:30 40 02/21/17 08:00 93 02/21/17 08:00 98.2 93 39 148/61 (90) 98 02/21/17 08:00 30 02/21/17 07:00 90 73 129/61 (83) 98 02/21/17 06:00 93 02/21/17 04:00 86 02/21/17 04:00 30 02/21/17 04:00 98.2 86 20 119/58 (78) 96 02/21/17 03:58 96 30 02/21/17 02:00 78 02/21/17 00:22 100 30 02/21/17 00:00 98.1 74 24 147/63 (91) 100 02/21/17 00:00 74 02/21/17 00:00 30 02/20/17 22:00 79 02/20/17 20:00 99.3 77 24 122/58 (79) 100 02/20/17 20:00 77 02/20/17 20:00 30 02/20/17 19:41 100 30 02/20/17 18:00 91 02/20/17 16:00 30 02/20/17 16:00 97.8 86 26 108/58 (75) 100 02/20/17 16:00 86 Intake & Output 02/21/17 02/21/17 07:00 19:00 Intake Total 492 ml Output Total 250 ml Balance 242 ml Tube Feeding 432 ml Other 60 ml Output Urine Total 250 ml # Bowel Movements 1 Physical Exam CONSTITUTIONAL/GENERAL: This is a cachectic, ill-looking elderly patient, appears older than stated age. TUBES/LINES/DRAINS: Trach to oxygen via t-piece, PIV, PEG tube, SCDs. SKIN: No jaundice. Ecchymoses on upper extremities. Skin temperature cool to touch. EYES: Pupils equal and round and reactive. Extraocular motions intact. No scleral icterus. No injection or drainage. Fundi not examined. ENT: Hearing grossly normal. Nose without bleeding or purulent drainage. Moist oral mucosa. NECK: Trachea midline, trach to t-piece oxygen. CARDIOVASCULAR: Regular rate and rhythm without murmurs, gallops, or rubs. Edema to bilateral upper extremities RESPIRATORY/CHEST: Symmetric, unlabored respirations. Diminished Breath sounds equal bilaterally. GASTROINTESTINAL: Abdomen soft, non-tender, nondistended. Bowel sounds present. PEG tube. GENITOURINARY: Without palpable bladder distension. Cabrera catheter in place. MUSCULOSKELETAL: cyanotic nail beds. NEUROLOGICAL: Awake and alert. Nods yes/no appropriately. Follows commands. Moves all extremities. PSYCHIATRIC: Anxious with increased conversation. . . Diagnostic Tests Laboratory Laboratory Tests Test 02/19/17 04:26 02/19/17 10:00 02/19/17 16:00 02/20/17 04:54 White Blood Count 9.7 TH/MM3 (4.0-11.0) 7.8 TH/MM3 (4.0-11.0) Red Blood Count 3.02 MIL/MM3 (4.00-5.30) 2.52 MIL/MM3 (4.00-5.30) Hemoglobin 8.9 GM/DL (11.6-15.3) 7.5 GM/DL (11.6-15.3) Hematocrit 26.0 % (35.0-46.0) 21.3 % (35.0-46.0) Mean Corpuscular Volume 86.1 FL (80.0-100.0) 84.6 FL (80.0-100.0) Mean Corpuscular Hemoglobin 29.5 PG (27.0-34.0) 29.7 PG (27.0-34.0) Mean Corpuscular Hemoglobin Concent 34.2 % (32.0-36.0) 35.2 % (32.0-36.0) Red Cell Distribution Width 15.9 % (11.6-17.2) 15.8 % (11.6-17.2) Platelet Count 145 TH/MM3 (150-450) 153 TH/MM3 (150-450) Mean Platelet Volume 8.9 FL (7.0-11.0) 8.9 FL (7.0-11.0) Blood Urea Nitrogen 55 MG/DL (7-18) Creatinine 0.88 MG/DL (0.50-1.00) Random Glucose 171 MG/DL (74-106) Calcium Level 7.9 MG/DL (8.5-10.1) Phosphorus Level 3.4 MG/DL (2.5-4.9) Magnesium Level 2.1 MG/DL (1.5-2.5) Sodium Level 133 MEQ/L (136-145) Potassium Level 2.9 MEQ/L (3.5-5.1) 4.4 MEQ/L (3.5-5.1) Chloride Level 94 MEQ/L (98-107) Carbon Dioxide Level 30.5 MEQ/L (21.0-32.0) Anion Gap 9 MEQ/L (5-15) Estimat Glomerular Filtration Rate 63 ML/MIN (>89) Blood Gas Puncture Site RT RADIAL Blood Gas Patient Temperature 98.6 Blood Gas HCO3 30 mmol/L (22-26) Blood Gas Base Excess 5.8 mmol/L (-2-2) Blood Gas Oxygen Saturation 95 % (90-100) Arterial Blood pH 7.47 (7.380-7.420) Arterial Blood Partial Pressure CO2 42 mmHg (38-42) Arterial Blood Partial Pressure O2 90 mmHg (61-120) Arterial Blood Oxygen Content 10.9 Vol % (12.0-20.0) Arterial Blood Carboxyhemoglobin 1.2 % (0-4) Arterial Blood Methemoglobin 1.0 % (0-2) Blood Gas Hemoglobin 8.0 G/DL (12.0-16.0) Oxygen Delivery Device VENTILATOR Blood Gas Ventilator Setting CPAP/PEEP5/PS10 Blood Gas Inspired Oxygen 30 % Neutrophils (%) (Auto) 89.2 % (16.0-70.0) Lymphocytes (%) (Auto) 5.4 % (9.0-44.0) Monocytes (%) (Auto) 5.3 % (0.0-8.0) Eosinophils (%) (Auto) 0.0 % (0.0-4.0) Basophils (%) (Auto) 0.1 % (0.0-2.0) Neutrophils # (Auto) 6.9 TH/MM3 (1.8-7.7) Lymphocytes # (Auto) 0.4 TH/MM3 (1.0-4.8) Monocytes # (Auto) 0.4 TH/MM3 (0-0.9) Eosinophils # (Auto) 0.0 TH/MM3 (0-0.4) Basophils # (Auto) 0.0 TH/MM3 (0-0.2) CBC Comment DIFF FINAL Differential Comment Test 02/20/17 05:22 02/20/17 16:45 02/21/17 06:24 Blood Urea Nitrogen 52 MG/DL (7-18) 45 MG/DL (7-18) Creatinine 0.78 MG/DL (0.50-1.00) 0.61 MG/DL (0.50-1.00) Random Glucose 123 MG/DL (74-106) 106 MG/DL (74-106) Calcium Level 8.0 MG/DL (8.5-10.1) 8.2 MG/DL (8.5-10.1) Phosphorus Level 2.6 MG/DL (2.5-4.9) Magnesium Level 2.0 MG/DL (1.5-2.5) Sodium Level 137 MEQ/L (136-145) 138 MEQ/L (136-145) Potassium Level 3.7 MEQ/L (3.5-5.1) 3.4 MEQ/L (3.5-5.1) Chloride Level 100 MEQ/L (98-107) 101 MEQ/L (98-107) Carbon Dioxide Level 27.7 MEQ/L (21.0-32.0) 28.3 MEQ/L (21.0-32.0) Anion Gap 9 MEQ/L (5-15) 9 MEQ/L (5-15) Estimat Glomerular Filtration Rate 73 ML/MIN (>89) 97 ML/MIN (>89) Hemoglobin 9.1 GM/DL (11.6-15.3) 9.5 GM/DL (11.6-15.3) Hematocrit 28.1 % (35.0-46.0) 28.7 % (35.0-46.0) White Blood Count 11.1 TH/MM3 (4.0-11.0) Red Blood Count 3.25 MIL/MM3 (4.00-5.30) Mean Corpuscular Volume 88.5 FL (80.0-100.0) Mean Corpuscular Hemoglobin 29.2 PG (27.0-34.0) Mean Corpuscular Hemoglobin Concent 33.0 % (32.0-36.0) Red Cell Distribution Width 16.7 % (11.6-17.2) Platelet Count 236 TH/MM3 (150-450) Mean Platelet Volume 8.2 FL (7.0-11.0) Neutrophils (%) (Auto) 87.1 % (16.0-70.0) Lymphocytes (%) (Auto) 6.7 % (9.0-44.0) Monocytes (%) (Auto) 5.8 % (0.0-8.0) Eosinophils (%) (Auto) 0.2 % (0.0-4.0) Basophils (%) (Auto) 0.2 % (0.0-2.0) Neutrophils # (Auto) 9.6 TH/MM3 (1.8-7.7) Lymphocytes # (Auto) 0.7 TH/MM3 (1.0-4.8) Monocytes # (Auto) 0.6 TH/MM3 (0-0.9) Eosinophils # (Auto) 0.0 TH/MM3 (0-0.4) Basophils # (Auto) 0.0 TH/MM3 (0-0.2) CBC Comment DIFF FINAL Differential Comment Result Diagram: 02/21/1724 02/21/17 0624 Microbiology Microbiology Date/Time Source Procedure Growth Status 02/04/17 11:35 Blood Peripheral Aerobic Blood Culture - Final NO GROWTH IN 5 DAYS Complete 02/04/17 11:35 Blood Peripheral Anaerobic Blood Culture - Final NO GROWTH IN 5 DAYS Complete 02/14/17 12:24 Sputum Endotracheal Gram Stain - Final Complete 02/14/17 12:24 Sputum Endotracheal Sputum Culture - Final RARE GROWTH NORMAL RESPIRATORY RADHA Complete Imaging Last Impressions Chest X-Ray 02/19/17 0000 Signed Impressions: Service Date/Time: January 08:52 - CONCLUSION: 1. Interval improvement in bilateral lower lobe infiltrates and improving left sided effusion as detailed above. 2. Interval removal of the endotracheal tube with placement of a tracheostomy. Tip is appropriately positioned at the clavicular head. Nura Cook MD Abdomen/Pelvis CT 02/14/17 0000 Signed Impressions: Service Date/Time: Tuesday, February 14, 2017 23:14 - CONCLUSION: 1. Nonspecific small ascites with bilateral pleural effusions and body wall edema/anasarca. No abscess demonstrated. 2. Possible mass of the lower rectum and please correlate clinically. 3. Gastric feeding tube with tip in the lower body. 4. Sigmoid colon diverticulosis without perceptible acute inflammatory changes. 5. Cholelithiasis without evidence of cholecystitis or biliary obstruction. Phan Lomas MD Gastrostomy Tube Placement 02/05/17 0000 Signed Impressions: Service Date/Time: January 16:47 - CONCLUSION: Uncomplicated gastrostomy tube placement as above. Jorje Josue MD Lower Extremity Ultrasound 02/04/17 0000 Signed Impressions: Service Date/Time: Saturday, February 04, 2017 21:13 - CONCLUSION: 1. No evidence of deep venous thrombosis within the lower extremities. 2. Popliteal cyst on the left measuring 2.2 x 1.5 x 0.9 cm. Julian Mcmahan MD Head CT 02/04/17 0000 Signed Impressions: Service Date/Time: Saturday, February 04, 2017 17:50 - CONCLUSION: 1. No acute intracranial abnormality. 2. Tiny fluid level within the right maxillary sinus. Julian Mcmahan MD CT Angiography 02/04/17 0000 Signed Impressions: Service Date/Time: Saturday, February 04, 2017 17:54 - CONCLUSION: 1. No evidence of pulmonary embolism. 2. Bibasilar alveolar consolidations as well as scattered perihilar patchy opacities suggestive of probable pneumonia. Clinical correlation is recommended. 3. 1.7 cm right thyroid nodule. Julian Mcmahan MD Abdomen X-Ray 02/04/17 0000 Signed Impressions: Service Date/Time: January 05:52 - CONCLUSION: Interval placement of nasogastric tube with the tip in the left mainstem bronchus. Caesar Ramos MD . Procedures 02/05/17 PEG tube placement 02/10/17- Intubated 02/12/17- Extubated 02/12/17-Reintubated 02/16/17 trach placement . Assessment and Plan Disease Oriented Problem List: (1) Sepsis (2) Hyponatremia (3) Pneumonia (4) Hypoxia Symptom Scale: (1) Shortness of breath 0-10 Scale: Unable to quantify Comment: Multifactorial. Patient has had multiple hospitalizations for shortness of breath/pneumonia. Mild respiratory distress. Reintubated. . (2) Debility 0-10 Scale: Unable to quantify Comment: Progressive. Patient has had prolonged hospitalization in 4 different facilities since November 2016. Since November she has been hospitalized approximately 5 times. Patient was [facility] recently into a penit[facility]iary facility. Patient has also lost weight significantly. Has not been able to participate in physical therapy due to her illness. Patient remains at high risk for deterioration if she continues to have shortness of breath, which will limit her participation in physical therapy. PT was consulted- recommending PT at rehab. . Pertinent Non-Medical Issues Psychosocial:Patient was born and raised in [place]. Patient still lives in [place] but came to [place] with her granddaughter to visit in late November, after being hospitalized in [place] and [place] for approximately 4 weeks. Patient was twice and once and her last a few years ago . She has 1 adult daughter, one grandchild and 2 great grandchildren. Patients is level of education is high school. 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 Patient has been living alone independently in [place] and helps take care of her elderly mother was 95 years old. Spiritual:[employer] [place]- have support from local jehovah's witness-Does not want visit from outside installation machinist services Legal:Patient appears to be regaining capacity, recommend shared decision making as she is unable to speak due to trach. Patient has designated her granddaughter Connie Cotton as her primary healthcare surrogate and granddaughter`s Freddy Cotton as alternate HCS. Ethical issues impacting care: None identified at this time. Important Contacts Granddaughter- primary HCS- Connie Cotton- [phone] Alternate HCS- Freddy Cotton [phone] Daughter- Flor Bennett [phone] . Prognosis Mrs Knapp is a 71 years old female with a past medical history of colon cancer, esophageal strictures, pneumonia and anxiety. Patient has had multiple hospitalizations for persistent pneumonia, hyponatremia and dysphagia. She was recently discharged from [facility] to a penitentiary facility. Patient presented via EMS to [facility] on 02/04/17 after she was found slumped over, with cyanosis of limbs and in respiratory distress at the [facility]. Patient`s O2 saturation were in the 80s. Now s/p trach and PEG, on CPAP alternating with t- piece. New rectal mass. Given ongoing comorbidities and recent multiple hospitalizations, patient remains at high risk for complications, deterioration and decline. . Code Status: Full Code Plan * Legal decision maker: Patient appears to be regaining capacity, recommend shared decision making as she is unable to speak due to trach. Patient has designated her granddaughter Connie Cotton as her primary healthcare surrogate and granddaughter`s Freddy Cotton as alternate HCS. * FULL CODE. * Goals remain aggressive. Patient will consider colonoscopy after [place] pending tumor marker results. * SYMPTOMS: Shortness of breath:Multifactorial. Patient has had multiple hospitalizations for shortness of breath/pneumonia. S/P trach. On oxygen via t- piece during day and CPAP at night. Weakness: due to prolonged hospitalization and bedbound status. Continue PT. Consider sitting patient up in stretcher chair. * Palliative care will continue to follow the patient during hospital course as condition evolves, to assist patient/decision-maker with understanding of their medical conditions, weighing benefits/burdens of treatment options, for clarification of goals of treatment. Additionally will assist with any symptoms of palliative concern. . Attestation To help prompt me to consider important information that might be impacting today's encounter and assessment, information from prior notes written by myself or my colleagues may have been "brought forward" into today's note. My signature on this note, however, is an attestation that I personally performed the exam, history, and/or decision-making noted today, and, unless otherwise indicated, the interactions with patient, family, and staff as well as the review of records all occurred today. I also attest that the listed assessment and stated plan reflect my best clinical judgment today based on the combination of historical information, prior notes, and today's exam/ interactions. When time spent is documented, it refers only to time spent today by the signer, or if indicated, combined time spent today by collaborating physician/nurse practitioner. María Elias Feb 21, 2017 16:08
--- NOTE | 2017-02-21 17:12 | HHI.PR ---
Subjective Remarks 71 YOWF with VDRF,Bibasilar infilt Sedated with Fentanyl BP borderline gets anxious On Trach collar Objective Vital Signs Vital Signs Date Time Temp Pulse Resp B/P (MAP) Pulse Ox O2 Delivery O2 Flow Rate FiO2 02/21/17 16:00 40 02/21/17 16:00 99.3 96 27 147/70 (95) 98 02/21/17 16:00 96 02/21/17 15:00 93 28 123/76 (92) 100 02/21/17 14:00 104 02/21/17 14:00 104 30 143/64 (90) 98 02/21/17 13:00 101 27 155/65 (95) 98 02/21/17 12:00 98.3 92 27 130/66 (87) 100 02/21/17 12:00 92 02/21/17 12:00 40 02/21/17 11:00 97 33 158/67 (97) 97 02/21/17 10:00 99 02/21/17 10:00 99 33 166/73 (104) 96 02/21/17 09:00 102 37 160/71 (100) 96 02/21/17 08:42 98 T-piece 6.00 40 02/21/17 08:30 40 02/21/17 08:00 93 02/21/17 08:00 98.2 93 39 148/61 (90) 98 02/21/17 08:00 30 02/21/17 07:00 90 73 129/61 (83) 98 02/21/17 06:00 93 02/21/17 04:00 86 02/21/17 04:00 30 02/21/17 04:00 98.2 86 20 119/58 (78) 96 02/21/17 03:58 96 30 02/21/17 02:00 78 02/21/17 00:22 100 30 02/21/17 00:00 98.1 74 24 147/63 (91) 100 02/21/17 00:00 74 02/21/17 00:00 30 02/20/17 22:00 79 02/20/17 20:00 99.3 77 24 122/58 (79) 100 02/20/17 20:00 77 02/20/17 20:00 30 02/20/17 19:41 100 30 02/20/17 18:00 91 I/O 02/20/17 02/20/17 02/20/17 02/21/17 02/21/17 02/21/17 07:00 15:00 23:00 07:00 15:00 23:00 Intake Total 3040 ml 803 ml 492 ml Output Total 1750 ml 475 ml 250 ml Balance 1290 ml 328 ml 242 ml Tube Feeding 203 ml 432 ml Tube Irrigant 300 ml Other 3040 ml 300 ml 60 ml Output Urine Total 750 ml 475 ml 250 ml Stool Total 1000 ml 0 ml # Bowel Movements 1 1 Result Diagram: 02/21/1762302/21/17623 Objective Remarks GENERAL: Frail elderly female, on Vent SKIN: Warm and dry. HEAD: Normocephalic. EYES: No scleral icterus. No injection or drainage. NECK: Supple, trachea midline. No JVD or lymphadenopathy. CARDIOVASCULAR: Regular rate and rhythm without murmurs, gallops, or rubs. RESPIRATORY: Breath sounds equal bilaterally. No accessory muscle use. GASTROINTESTINAL: Abdomen soft, non-tender, nondistended. MUSCULOSKELETAL: No cyanosis, or edema. BACK: Nontender without obvious deformity. No CVA tenderness. A/P Assessment and Plan VDRF, s/p Trach 02/16 Bibasilar infilterates Hypotension Anxiety H/O Ca colon Weight loss PLAN: Dw pt's Grand daughter Cont Abx Vanco, Cefepime and Zithro IV Solumedrol Xanax 0.5 mg q 6 hrs Trach care Cont trach collar Tube feeding Yusef Hernandez MD Feb 21, 2017 17:12
[2017-02-21] MEDS: MELATONIN 5 MG TAB PO SCH (20:16)
[2017-02-21] MEDS: RESP: ALBUTEROL 2.5 MG/IPRATROPIUM 0.5 MG NEB (PRN) INH (20:32)
[2017-02-22] VITALS (18 sets, daily range): BP systolic 91–151; BP diastolic 50–74; PULSE 78–148; RESP 16–42; TEMP 97.8–103.3; O2SAT 92–100
[2017-02-22] MEDS: ALPRAZolam 0.5 MG TAB PO PRN (03:49)
[2017-02-22 05:34] LABS: BICARBONATE 29.1 MEQ/L (21.0-32.0); CALCIUM 8.4 MG/DL (8.5-10.1); CREATININE 0.54 MG/DL (0.50-1.00)
[2017-02-22 05:39] LABS: AUTOMATED NEUTROPHIL # 13.6 TH/MM3 (1.8-7.7); BASOPHIL # 0.2 TH/MM3 (0-0.2); BASOPHIL % 1.1 % (0.0-2.0); EOSINOPHIL % 0.3 % (0.0-4.0); HEMATOCRIT 29.5 % (35.0-46.0); HEMOGLOBIN 9.6 GM/DL (11.6-15.3); LYMPHOCYTE # 0.6 TH/MM3 (1.0-4.8); MEAN CORPUSCULAR HEMOGLOBIN 28.4 PG (27.0-34.0); MEAN CORPUSCULAR HGB CONC 32.7 % (32.0-36.0); MEAN PLATELET VOLUME 8.5 FL (7.0-11.0); MONO % 2.1 % (0.0-8.0); MONOCYTE # 0.3 TH/MM3 (0-0.9); NEUT % 92.5 % (16.0-70.0); PLATELET COUNT 263 TH/MM3 (150-450); RED BLOOD COUNT 3.39 MIL/MM3 (4.00-5.30); RED CELL DISTRIBUTION WIDTH 16.3 % (11.6-17.2); WHITE BLOOD COUNT 14.7 TH/MM3 (4.0-11.0)
[2017-02-22] MEDS ORDERED: METOPROLOL TARTRATE 5 MG/5 ML VIAL ONE (05:56)
[2017-02-22] MEDS ORDERED: METOPROLOL TARTRATE 5 MG/5 ML VIAL IV PUSH SCH (06:00)
[2017-02-22] MEDS: MAGNESIUM SULFATE 1 GM PREMIX 100 ML IV SCH ×2 (06:06→07:14)
[2017-02-22] MEDS: ACETAMINOPHEN 650 MG/20.3 ML UDC PO PRN (07:38)
--- NOTE | 2017-02-22 07:44 | HHI.CCPN ---
Subjective Remarks/Hospital Course 02/04: 71-year-old female with a medical history significant for colon cancer in 2003 for which she underwent partial colon resection and chemotherapy, esophageal stricture with significant weight loss due to poor by mouth intake for which she was hospitalized in [place] in November 2016 for 2 weeks treated for pneumonia and subsequently evaluated for dysphagia and was found to have a sufficient stricture for which she was transferred to [facility] in [place] and underwent esophageal dilatation and was subsequently discharged 2 weeks later on a pured diet. Patient moved to [place] with her granddaughter and a few beats VAC was admitted to [facility] for worsening shortness of breath and was diagnosed with a pneumonia, hyponatremia. She was treated with antibiotics and subsequently discharged home however the following day had to be readmitted at [facility] for unresolved shortness of breath where she was hospitalized for a week and subsequently discharged to [facility] 3 days prior to this admission. Patient's by mouth intake has been poor since her discharge 3 days back according to her granddaughter as the pured diet at the [facility] is to take. Patient was found to have altered mental status today and was found slumped to one side with poor respirations. EMS was called and patient was noted to have O2 sats in the 60s. She was transported to the emergency room where she was placed on BiPAP for respiratory distress with hypoxic respiratory failure. She was also noted to be hypertensive on arrival with systolic blood pressure in the 200s. Patient was also found to have a sodium of 118. I was contacted by ER physician and accepted patient for admission to the ICU. When I evaluated the patient in the ER she was on BiPAP with full facemask. History was obtained by discussion with patient's granddaughter was at the bedside. Patient was much more awake at this time and trying to communicate however in view of BiPAP requirement was difficult to communicate with. She denied any chest pain at the time. Patient has chronic diarrhea since her colon surgery in 2003. Per the granddaughter she was doing well till about 3 months ago when she started having significant weight loss and poor by mouth intake possibly related to esophageal stricture and the fact that she was taking care of her sick family member at home. She has been advised a PEG tube per the granddaughter because of her poor nutritional status and poor by mouth intake. She has had problems with hyponatremia off and on for a while. Patient's granddaughter is very concerned about her poor nutritional status. 02/05: Tolerating nasal cannula. Underwent PEG tube placement by IR today. Sodium 122. 02/06 No events overnight. s/p PEG tube placement yesterday. Sodium level 131 this morning 02/07 No events overnight. On 50% VM with good sats. 02/08 No events overnight. Afebrile . Off BIPAP. 02/09 Patient is on BIPAP 02/03 with 45% FIO2> Afebrile. 02/10 Patient was intubated early this morning for acute hypercapnic resp acidosis. Afebrile. 02/11 No events overnight. Patient remains intubated. Afebrile. 02/12 Patient remains intubated and on Precedex drip for sedation. Afebrile. 02/13 Patient was extubated yesterday and reintubated late afternoon for acute resp acidosis. afebrile. 02/14: remains intubated. appears very weak. long conversation with granddaughter and medical decision-maker at bedside. likely will require tracheostomy given repeat re-intubations and chronic debilitation. granddaughter requests we wait until thursday or thursday, and requests it be done in the OR and not at bedside. 02/15: wake and more alert. however, only tolerated 10 minutes of CPAP before becoming tachypneic and failing. gen surg consulted for trach: family requests OR trach due to concerns over infection risk at bedside. I counseled patient's family that there was no increased risk of infection, and the trachea is inherently an unsterile environment with endotracheal tube in place, but family insists on OR trach. hypernatremia slightly worse despite increasing free water. 02/16: still awake and alert. failed CPAP again today. plan for trach today. 02/17: s/p trach yesterday. doing well. still failing CPAP for weakness and tachypnea. needs LTAC. hyponatremia and hypokalemia: kcl replacement and holding free water. 02/18: sodium improving. doing well. needs aggressive PT. 02/19 No events overnight. On ventilator via trach. Afebrile. 02/20 No events overnight. For Colonoscopy today. Afebrile. 02/21 Patient refused colonoscopy yesterday. Tolerated TP's during day and placed on CPAP overnight. Afebrile. 02/22 Patient went into Afib with RVR overnight given Lopressor 5mg IV x1 and Mag sulfate. T:103 this morning Objective Vital Signs Date Time Temp Pulse Resp B/P (MAP) Pulse Ox O2 Delivery O2 Flow Rate FiO2 02/22/17 06:00 148 02/22/17 04:12 93 40 02/22/17 04:00 98.9 42 134/74 (94) 02/21/17 20:32 T-piece 02/21/17 08:42 6.00 Intake and Output 02/22/17 02/22/17 02/23/17 08:00 16:00 00:00 Intake Total 565 ml Output Total 175 ml Balance 390 ml Result Diagram: 02/22/17 0425 02/22/17 0425 Other Results Laboratory Tests Test 02/21/17 14:30 02/22/17 04:25 Stool C. difficile Toxin (PCR) NEGATIVE Stl C. difficile Toxin Epiderm 027 PRESUMPTIVE NEGATIVE White Blood Count 14.7 TH/MM3 Red Blood Count 3.39 MIL/MM3 Hemoglobin 9.6 GM/DL Hematocrit 29.5 % Mean Corpuscular Volume 87.0 FL Mean Corpuscular Hemoglobin 28.4 PG Mean Corpuscular Hemoglobin Concent 32.7 % Red Cell Distribution Width 16.3 % Platelet Count 263 TH/MM3 Mean Platelet Volume 8.5 FL Neutrophils (%) (Auto) 92.5 % Lymphocytes (%) (Auto) 4.0 % Monocytes (%) (Auto) 2.1 % Eosinophils (%) (Auto) 0.3 % Basophils (%) (Auto) 1.1 % Neutrophils # (Auto) 13.6 TH/MM3 Lymphocytes # (Auto) 0.6 TH/MM3 Monocytes # (Auto) 0.3 TH/MM3 Eosinophils # (Auto) 0.0 TH/MM3 Basophils # (Auto) 0.2 TH/MM3 CBC Comment DIFF FINAL Differential Comment Blood Urea Nitrogen 39 MG/DL Creatinine 0.54 MG/DL Random Glucose 143 MG/DL Calcium Level 8.4 MG/DL Sodium Level 141 MEQ/L Potassium Level 5.1 MEQ/L Chloride Level 105 MEQ/L Carbon Dioxide Level 29.1 MEQ/L Anion Gap 7 MEQ/L Estimat Glomerular Filtration Rate 111 ML/MIN Imaging Last Impressions Chest X-Ray 02/19/17 0000 Signed Impressions: Service Date/Time: January 08:52 - CONCLUSION: 1. Interval improvement in bilateral lower lobe infiltrates and improving left sided effusion as detailed above. 2. Interval removal of the endotracheal tube with placement of a tracheostomy. Tip is appropriately positioned at the clavicular head. Nura Cook MD Abdomen/Pelvis CT 02/14/17 0000 Signed Impressions: Service Date/Time: Tuesday, February 14, 2017 23:14 - CONCLUSION: 1. Nonspecific small ascites with bilateral pleural effusions and body wall edema/anasarca. No abscess demonstrated. 2. Possible mass of the lower rectum and please correlate clinically. 3. Gastric feeding tube with tip in the lower body. 4. Sigmoid colon diverticulosis without perceptible acute inflammatory changes. 5. Cholelithiasis without evidence of cholecystitis or biliary obstruction. Phan Lomas MD Gastrostomy Tube Placement 02/05/17 0000 Signed Impressions: Service Date/Time: January 16:47 - CONCLUSION: Uncomplicated gastrostomy tube placement as above. Jorje Josue MD Lower Extremity Ultrasound 02/04/17 0000 Signed Impressions: Service Date/Time: Saturday, February 04, 2017 21:13 - CONCLUSION: 1. No evidence of deep venous thrombosis within the lower extremities. 2. Popliteal cyst on the left measuring 2.2 x 1.5 x 0.9 cm. Julian Mcmahan MD Head CT 02/04/17 0000 Signed Impressions: Service Date/Time: Saturday, February 04, 2017 17:50 - CONCLUSION: 1. No acute intracranial abnormality. 2. Tiny fluid level within the right maxillary sinus. Julian Mcmahan MD CT Angiography 02/04/17 0000 Signed Impressions: Service Date/Time: Saturday, February 04, 2017 17:54 - CONCLUSION: 1. No evidence of pulmonary embolism. 2. Bibasilar alveolar consolidations as well as scattered perihilar patchy opacities suggestive of probable pneumonia. Clinical correlation is recommended. 3. 1.7 cm right thyroid nodule. Julian Mcmahan MD Abdomen X-Ray 02/04/17 0000 Signed Impressions: Service Date/Time: January 05:52 - CONCLUSION: Interval placement of nasogastric tube with the tip in the left mainstem bronchus. Caesar Ramos MD Objective Remarks GENERAL: frail elderly female, lying in bed, trach in place SKIN: Warm and dry. HEAD: Normocephalic. EYES: No scleral icterus. No injection or drainage. NECK: trachea midline. No JVD. trach in place. CARDIOVASCULAR:Tachycardic, nl S1, S2 RESPIRATORY: PSV 12. peep 5. GASTROINTESTINAL: Abdomen soft, non-tender, nondistended. no guarding. MUSCULOSKELETAL: No cyanosis, or edema. Neuro: RASS -1. follows commands. moves all extremities. A/P Assessment and Plan Assessment: 71yF with at least a 3 month chronic course of failure to thrive and weight loss, esophageal stricture, and now recurrent hypoxic and hypercarbic respiratory failure requiring multiple intubations. She needs aggressive pulmonary rehab in an LTAC type facility. Plan: Neuro: Acute metabolic encephalopathy Anxiety Insomnia - Monitor neuro status. On no sedation family have asked that we avoid fentanyl, versed, and propofol because in their past experience, she has reacted poorly to these. they request Precedex only. Xanax to 0.5mg po q6h prn melatonin 5mg po qHS for sleep CV: New onset Afib with RVR Monitor HR and BP keep MAP>65mmHg Check EKG, Ck/trop, 2D echo to eval LV function Pulm: Recurrent acute hypercarbic and hypoxic respiratory failure likely secondary to deconditioning and weakness. likely also large component of silent or overt aspiration and inability to control secretions. Continue with vent support keep sat >92% On PRVC 16, 450, 1.0, 5, 40% Check CXR Bronchodilators. ICU vent bundle. CT chest with no evidence of PE and shows bibasilar infiltrates concerning for recurrent aspiration pneumonia Pulm is following. continue daily SBTs. needs LTAC. s/p trach 02/[address] Chaudhry prednisone taper. GI/liver: Failure to thrive Hypernatremia- resolved. Free water deficit- resolved. Chronic diarrhea History of esophageal stricture status post recent esophageal dilation History of colon cancer Acute protein calorie malnutrition - severe hyponatremia- improving. s/p PEG tube placement by IR 02/05 On Tube feeds(Jevity 1.5 @ 40ml/hr) GI is following for ? rectal mass on CT abdomen. Patient refused colonoscopy. Check tumor markers- CEA level and CA19-9. Renal/: Acute intravascular volume overload- improving. Metabolic alkalosis Monitor renal function, I/O's, electrolytes replacement per protocol. ID: Healthcare Associated Pneumonia- s/p full course abx ( Cefepime, Azithromycin). Will place on Aztreonam, Give vanco 1 dose x1 and panculture(( Blood, sputum, UA with cx if indicated) for worsening leukocytosis and new onset fever -C-diff PCR is negative on 02/21 and 02/10 ID following. Endocrine: Hyperglycemia of Critical Illness SSI for glycemic control Heme-onc: Anemia secondary to chronic disease Monitor CBC Prophylaxis: Pepcid/SCDs. heparin SQ( H/H stable and no signs of bleeding) Palliative care is following Awaiting placement in LTAC facility Level 3 Varun Yusuf MD Feb 22, 2017 07:43
[2017-02-22] MEDS: AZTREONAM INJ 1,000 MG in SODIUM CHLORIDE 0.9% INJ 100 ML IV SCH ×2 (08:44→17:20)
[2017-02-22] MEDS: HEPARIN SODIUM - SQ 10,000 UNITS/ML VIAL SQ SCH ×2 (08:45→20:48)
[2017-02-22] MEDS: predniSONE 5 MG/5 ML CUP PO SCH (08:45)
[2017-02-22] MEDS: FAMOTIDINE 20 MG TAB NG SCH (08:45)
[2017-02-22] MEDS: SODIUM CHLORIDE 0.9% FLUSH 10 ML FLUSH IV FLUSH SCH ×2 (08:45→20:49)
[2017-02-22] MEDS ORDERED: VANCOMYCIN INJ 1,000 MG in SODIUM CHLOR 0.9% 250 ML INJ 250 ML IV ONE (09:00)
[2017-02-22] MEDS ORDERED: METOPROLOL TARTRATE 25 MG TAB PO SCH (09:00)
[2017-02-22 09:17] LABS: TROPONIN I 0.02 NG/ML (0.02-0.05)
[2017-02-22] MEDS ORDERED: SODIUM CHLOR 0.9% 1000 ML INJ 1,000 ML IV ONE ×2 (09:30→11:00)
[2017-02-22 09:35] LABS: BACTERIA, URINE OCC /hpf; BILIRUBIN, URINE NEG (NEG); BLOOD, URINE TRACE (NEG); GLUCOSE,URINE 150 mg/dL (NEG); KETONE, URINE NEG (NEG); NITRITE,URINE NEG (NEG); SQUAMOUS EPITHELIAL CELL URINE <1 /hpf (0-5); URINE COLOR YELLOW (YELLW/STRAW); URINE LEUKOCYTE ESTERASE NEG (NEG)
--- NOTE | 2017-02-22 09:37 | RADRPT ---
EXAM DATE/TIME: 02/22/2017 08:10 [facility] COMPARISON: CHEST SINGLE AP, February 19, 2017, 8:52. INDICATIONS : Short of Breath MEDICAL HISTORY : Hernia, hiatal. Gastroesophageal reflux disease. Carcinoma, colon. SURGICAL HISTORY : Colon resection. Left hip replacement. ENCOUNTER: Subsequent ACUITY: 4 - 6 days PAIN SCORE: Non-responsive. LOCATION: Bilateral chest FINDINGS: Tracheostomy tube in good position. Increasing parenchymal changes left base. The heart and pulmonar y vascularity are normal. CONCLUSION: Decreasing parenchymal changes left base. Tracheostomy tube in good position. Gregorio Jacob MD FACR on February 22, 2017 at 9:35 Board Certified Radiologist. This report was verified electronically.
[2017-02-22 09:55] LABS: CARCINOEMBRYONIC ANTIGEN 4.2 NG/ML (0.2-5.0)
[2017-02-22] MEDS: INSULIN NovoLIN REGULAR SUPPLEMENTAL SCALE SQ SCH ×3 (10:05→20:48)
[2017-02-22] MEDS: CHLORHEXIDINE 0.12% (ORAL KIT) 15 ML CUP MT SCH ×2 (10:05→20:49)
[2017-02-22] MEDS: SODIUM CHLOR 0.9% 1000 ML INJ 1,000 ML IV SCH (10:30)
[2017-02-22 10:31] LABS: CA 19-9 46.3 U/ML (0.0-35.0)
[2017-02-22] MEDS ORDERED: ALBUMIN 5% INJ 500 ML IV ONE (13:15)
--- NOTE | 2017-02-22 15:08 | EKG ---
Date Performed: 02/22/2017 Time Performed: 07:53:48 PTAGE: 71 years EKG: Sinus tachycardia. Left axis deviation, Poor R wave progression - probable normal variant, Nonspecific T wave abnormalities Abnormal ECG PREVIOUS TRACING : 02/04/2017 11.20 Compared to previous tracing, axis has shifted leftward. DOCTOR: Khanh Rose Interpretating Date/Time 02/22/2017 15:06:58
--- NOTE | 2017-02-22 15:31 | HHI.PR ---
Subjective Remarks 71 YOWF with VDRF,Bibasilar infilt Sedated with Fentanyl BP borderline gets anxious hypotensive put back on Vent Has fever Objective Vital Signs Vital Signs Date Time Temp Pulse Resp B/P (MAP) Pulse Ox O2 Delivery O2 Flow Rate FiO2 02/22/17 15:21 100 35 02/22/17 14:00 78 02/22/17 12:09 100 40 02/22/17 12:00 98.3 80 21 91/50 (64) 100 02/22/17 12:00 80 02/22/17 12:00 40 02/22/17 10:00 85 02/22/17 08:35 97 40 02/22/17 08:00 40 02/22/17 08:00 132 02/22/17 08:00 103.3 132 22 123/55 (77) 94 02/22/17 06:00 148 02/22/17 04:12 93 40 02/22/17 04:00 123 02/22/17 04:00 30 02/22/17 04:00 98.9 123 42 134/74 (94) 92 02/22/17 02:00 102 02/22/17 01:47 93 30 02/22/17 00:00 30 02/22/17 00:00 97.8 106 36 151/65 (93) 99 02/22/17 00:00 106 02/21/17 22:00 96 02/21/17 20:32 95 T-piece 35 02/21/17 20:00 98.7 109 49 144/91 (108) 95 02/21/17 20:00 40 02/21/17 20:00 109 02/21/17 18:00 99 02/21/17 18:00 99 28 97 02/21/17 17:00 96 26 142/67 (92) 98 02/21/17 16:00 40 02/21/17 16:00 99.3 96 27 147/70 (95) 98 02/21/17 16:00 96 I/O 02/21/17 02/21/17 02/21/17 02/22/17 02/22/17 02/22/17 07:00 15:00 23:00 07:00 15:00 23:00 Intake Total 492 ml 759 ml 565 ml 1450 ml Output Total 250 ml 500 ml 175 ml Balance 242 ml 259 ml 390 ml 1450 ml IV Total 100 ml 1450 ml Tube Feeding 432 ml 559 ml 465 ml Other 60 ml 200 ml Output Urine Total 250 ml 500 ml 175 ml # Bowel Movements 1 5 2 Result Diagram: 02/22/1742402/22/17424 Objective Remarks GENERAL: Frail elderly female, on Vent SKIN: Warm and dry. HEAD: Normocephalic. EYES: No scleral icterus. No injection or drainage. NECK: Supple, trachea midline. No JVD or lymphadenopathy. CARDIOVASCULAR: Regular rate and rhythm without murmurs, gallops, or rubs. RESPIRATORY: Breath sounds equal bilaterally. No accessory muscle use. GASTROINTESTINAL: Abdomen soft, non-tender, nondistended. MUSCULOSKELETAL: No cyanosis, or edema. BACK: Nontender without obvious deformity. No CVA tenderness. A/P Assessment and Plan VDRF, s/p Trach 02/16 Bibasilar infilterates Hypotension Anxiety H/O Ca colon Weight loss PLAN: Cont Abx Vanco, Cefepime and Zithro IV Solumedrol Xanax 0.5 mg q 6 hrs Trach care Vent Support Tube feeding Fluid bolus Yusef Hernandez MD Feb 22, 2017 15:31
--- NOTE | 2017-02-22 18:09 | HHI.IDPN ---
Subjective Subjective Remarks reconsulted by Dr Laurent 2/2 new episode of high fever up to 103 Pt is not tolerating weaning off vent she was restarted on azactam, vancomycin by Dr Luarent Pt had 7 BMs Antibiotics azactam, vancomycin Allergies: Coded Allergies: Penicillins (Verified Allergy, Unknown, 02/04/17) Objective . Vital Signs Date Time Temp Pulse Resp B/P (MAP) Pulse Ox O2 Delivery O2 Flow Rate FiO2 02/22/17 16:00 80 02/22/17 16:00 99.7 80 16 104/51 (68) 100 02/22/17 16:00 40 02/22/17 15:21 100 35 02/22/17 14:00 78 02/22/17 12:09 100 40 02/22/17 12:00 98.3 80 21 91/50 (64) 100 02/22/17 12:00 80 02/22/17 12:00 40 02/22/17 10:00 85 02/22/17 08:35 97 40 02/22/17 08:00 40 02/22/17 08:00 132 02/22/17 08:00 103.3 132 22 123/55 (77) 94 02/22/17 06:00 148 02/22/17 04:12 93 40 02/22/17 04:00 123 02/22/17 04:00 30 02/22/17 04:00 98.9 123 42 134/74 (94) 92 02/22/17 02:00 102 02/22/17 01:47 93 30 02/22/17 00:00 30 02/22/17 00:00 97.8 106 36 151/65 (93) 99 02/22/17 00:00 106 02/21/17 22:00 96 02/21/17 20:32 95 T-piece 35 02/21/17 20:00 98.7 109 49 144/91 (108) 95 02/21/17 20:00 40 02/21/17 20:00 109 02/22/17 02/22/17 02/23/17 15:00 23:00 07:00 Intake Total 1450 ml Balance 1450 ml IV Total 1450 ml . Laboratory Tests Test 02/21/17 06:24 02/22/17 04:25 White Blood Count 11.1 TH/MM3 14.7 TH/MM3 Red Blood Count 3.25 MIL/MM3 3.39 MIL/MM3 Hemoglobin 9.5 GM/DL 9.6 GM/DL Hematocrit 28.7 % 29.5 % Mean Corpuscular Volume 88.5 FL 87.0 FL Mean Corpuscular Hemoglobin 29.2 PG 28.4 PG Mean Corpuscular Hemoglobin Concent 33.0 % 32.7 % Red Cell Distribution Width 16.7 % 16.3 % Platelet Count 236 TH/MM3 263 TH/MM3 Mean Platelet Volume 8.2 FL 8.5 FL Neutrophils (%) (Auto) 87.1 % 92.5 % Lymphocytes (%) (Auto) 6.7 % 4.0 % Monocytes (%) (Auto) 5.8 % 2.1 % Eosinophils (%) (Auto) 0.2 % 0.3 % Basophils (%) (Auto) 0.2 % 1.1 % Neutrophils # (Auto) 9.6 TH/MM3 13.6 TH/MM3 Lymphocytes # (Auto) 0.7 TH/MM3 0.6 TH/MM3 Monocytes # (Auto) 0.6 TH/MM3 0.3 TH/MM3 Eosinophils # (Auto) 0.0 TH/MM3 0.0 TH/MM3 Basophils # (Auto) 0.0 TH/MM3 0.2 TH/MM3 CBC Comment DIFF FINAL DIFF FINAL Differential Comment Laboratory Tests Test 02/21/17 06:24 02/22/17 04:25 02/22/17 08:12 02/22/17 09:14 Blood Urea Nitrogen 45 MG/DL 39 MG/DL Creatinine 0.61 MG/DL 0.54 MG/DL Random Glucose 106 MG/DL 143 MG/DL Calcium Level 8.2 MG/DL 8.4 MG/DL Sodium Level 138 MEQ/L 141 MEQ/L Potassium Level 3.4 MEQ/L 5.1 MEQ/L Chloride Level 101 MEQ/L 105 MEQ/L Carbon Dioxide Level 28.3 MEQ/L 29.1 MEQ/L Anion Gap 9 MEQ/L 7 MEQ/L Estimat Glomerular Filtration Rate 97 ML/MIN 111 ML/MIN Total Creatine Kinase 27 U/L Troponin I 0.02 NG/ML Carcinoembryonic Antigen 4.2 NG/ML CA 19-9 Antigen 46.3 U/ML Microbiology Date/Time Source Procedure Growth Status 02/22/17 08:32 Blood Peripheral Aerobic Blood Culture Pending Received 02/22/17 08:32 Blood Peripheral Anaerobic Blood Culture Pending Received 02/22/17 08:12 Blood Peripheral Aerobic Blood Culture Pending Received 02/22/17 08:12 Blood Peripheral Anaerobic Blood Culture Pending Received 02/22/17 08:40 Urine Catheterized Urine Urine Culture Pending Received Imaging Last Impressions Chest X-Ray 02/22/17 0000 Signed Impressions: Service Date/Time: Wednesday, February 22, 2017 08:10 - CONCLUSION: Decreasing parenchymal changes left base. Tracheostomy tube in good position. Gregorio Jacob MD FACR Abdomen/Pelvis CT 02/14/17 0000 Signed Impressions: Service Date/Time: Tuesday, February 14, 2017 23:14 - CONCLUSION: 1. Nonspecific small ascites with bilateral pleural effusions and body wall edema/anasarca. No abscess demonstrated. 2. Possible mass of the lower rectum and please correlate clinically. 3. Gastric feeding tube with tip in the lower body. 4. Sigmoid colon diverticulosis without perceptible acute inflammatory changes. 5. Cholelithiasis without evidence of cholecystitis or biliary obstruction. Phan Lomas MD Gastrostomy Tube Placement 02/05/17 0000 Signed Impressions: Service Date/Time: January 16:47 - CONCLUSION: Uncomplicated gastrostomy tube placement as above. Jorje Josue MD Lower Extremity Ultrasound 02/04/17 0000 Signed Impressions: Service Date/Time: Saturday, February 04, 2017 21:13 - CONCLUSION: 1. No evidence of deep venous thrombosis within the lower extremities. 2. Popliteal cyst on the left measuring 2.2 x 1.5 x 0.9 cm. Julian Mcmahan MD Head CT 02/04/17 0000 Signed Impressions: Service Date/Time: Saturday, February 04, 2017 17:50 - CONCLUSION: 1. No acute intracranial abnormality. 2. Tiny fluid level within the right maxillary sinus. Julian Mcmahan MD CT Angiography 02/04/17 0000 Signed Impressions: Service Date/Time: Saturday, February 04, 2017 17:54 - CONCLUSION: 1. No evidence of pulmonary embolism. 2. Bibasilar alveolar consolidations as well as scattered perihilar patchy opacities suggestive of probable pneumonia. Clinical correlation is recommended. 3. 1.7 cm right thyroid nodule. Julian Mcmahan MD Abdomen X-Ray 02/04/17 0000 Signed Impressions: Service Date/Time: January 05:52 - CONCLUSION: Interval placement of nasogastric tube with the tip in the left mainstem bronchus. Caesar Ramos MD Physical Exam CONSTITUTIONAL/GENERAL: This is a poorly nourished patient, in no apparent distress. TUBES/LINES/DRAINS: SKIN: No jaundice, rashes, or lesions. Skin temperature appropriate. Not diaphoretic. EYES: Pupils equal and round and reactive. Extraocular motions intact. No scleral icterus. No injection or drainage. Fundi not examined. ENT: Hearing grossly normal. Nose without bleeding or purulent drainage. Throat without visible erythema, exudates, masses, or lesions. CARDIOVASCULAR: Regular rate and rhythm without murmurs, gallops, or rubs. No JVD. Peripheral pulses symmetric. RESPIRATORY/CHEST: Symmetric, unlabored respirations. Clear to auscultation. Breath sounds equal bilaterally. No wheezes, rales, or rhonchi. GASTROINTESTINAL: Abdomen soft, mildly tender not distended. No hepato- splenomegaly, or palpable masses. No guarding. Bowel sounds present. Rectal tube in place with liquid stool GENITOURINARY: Without palpable bladder distension. cath in place with clear yellow urine MUSCULOSKELETAL: Extremities without clubbing, cyanosis, or edema. No joint tenderness or effusion noted. No calf tenderness. No mottling or clubbing. PSYCHIATRIC: No obvious anxiety/depression. no apparent hallucinations or other psychotic thought process. Assessment & Plan Remarks PNA, culture neg Acute VDRF - recurrent intubation failure to wean Diarrhea, abx associated - C.diff negative nmore diarrhea Rectam mass, h/o cancer - pt refusing colonoscopy Abdominal pain, diffuse - improved worsening leukocytosis Profound malnourishment, hypoalbuminemia New fever, sepsis / source r/o c.diff UA, C+S blood clx sputum clx azactam, flagyl, vanco, micafungin fu WBC no abx for now paul oliver @ b/s dw with Ness Hernandez MD Feb 22, 2017 18:09
[2017-02-22] MEDS ORDERED: Vancomycin Consult Pharmacy 1 EA OTHER SCH (18:15)
[2017-02-22] MEDS: MELATONIN 5 MG TAB PO SCH (20:48)
[2017-02-22] MEDS: MICAFUNGIN INJ 150 MG in SODIUM CHLORIDE 0.9% INJ 100 ML IV SCH (20:48)
[2017-02-22] MEDS: metroNIDAZOLE 500 MG INJ 100 ML IV SCH (20:48)
[2017-02-23] VITALS (22 sets, daily range): BP systolic 88–110; BP diastolic 50–56; PULSE 70–122; RESP 16–24; TEMP 98.6–99.8; O2SAT 100
[2017-02-23] MEDS: SODIUM CHLOR 0.9% 1000 ML INJ 1,000 ML IV SCH ×3 (01:05→23:07)
[2017-02-23] MEDS: AZTREONAM INJ 1,000 MG in SODIUM CHLORIDE 0.9% INJ 100 ML IV SCH ×4 (01:05→23:07)
[2017-02-23] MEDS: CHLORHEXIDINE GLUCONATE 2 % 1 PACK (2 CLOTHS) TOP SCH (04:00)
[2017-02-23] MEDS: INSULIN NovoLIN REGULAR SUPPLEMENTAL SCALE SQ SCH ×4 (04:00→20:55)
[2017-02-23] MEDS: metroNIDAZOLE 500 MG INJ 100 ML IV SCH ×3 (04:24→20:55)
[2017-02-23 06:45] LABS: BASOPHIL % 0.2 % (0.0-2.0); EOSINOPHIL # 0.1 TH/MM3 (0-0.4); EOSINOPHIL % 0.8 % (0.0-4.0); LYMPH % 5.7 % (9.0-44.0); LYMPHOCYTE # 0.4 TH/MM3 (1.0-4.8); MEAN CELL VOLUME 89.3 FL (80.0-100.0); MEAN CORPUSCULAR HEMOGLOBIN 29.9 PG (27.0-34.0); MEAN CORPUSCULAR HGB CONC 33.5 % (32.0-36.0); MEAN PLATELET VOLUME 8.5 FL (7.0-11.0); MONO % 4.8 % (0.0-8.0); MONOCYTE # 0.3 TH/MM3 (0-0.9); NEUT % 88.5 % (16.0-70.0); PLATELET COUNT 123 TH/MM3 (150-450); RED BLOOD COUNT 2.35 MIL/MM3 (4.00-5.30); RED CELL DISTRIBUTION WIDTH 16.6 % (11.6-17.2); WHITE BLOOD COUNT 6.7 TH/MM3 (4.0-11.0)
[2017-02-23 06:56] LABS: HEMATOCRIT 20.9 % (35.0-46.0)
[2017-02-23 07:06] LABS: ALBUMIN 2.2 GM/DL (3.4-5.0); ALKALINE PHOSPHATASE 81 U/L (45-117); ALT (GPT) 16 U/L (10-53); AST (GOT) 15 U/L (15-37); BLOOD UREA NITROGEN 38 MG/DL (7-18); CALCIUM 7.7 MG/DL (8.5-10.1); CHLORIDE 111 MEQ/L (98-107); CREATININE 0.52 MG/DL (0.50-1.00); GLOMERULAR FILTRATION RATE 116 ML/MIN (>89); GLUCOSE,RANDOM 140 MG/DL (74-106); MAGNESIUM 2.1 MG/DL (1.5-2.5); PHOSPHORUS 1.4 MG/DL (2.5-4.9); SODIUM (NA) 142 MEQ/L (136-145); TOTAL BILIRUBIN ADULT 0.5 MG/DL (0.2-1.0); TOTAL PROTEIN 4.6 GM/DL (6.4-8.2)
[2017-02-23] MEDS: FAMOTIDINE 20 MG TAB NG SCH (08:25)
[2017-02-23] MEDS: HEPARIN SODIUM - SQ 10,000 UNITS/ML VIAL SQ SCH ×2 (08:25→20:55)
[2017-02-23] MEDS: VANCOMYCIN 1,000 MG/NS 250 ML IV SCH ×2 (08:25)
[2017-02-23] MEDS: SODIUM CHLORIDE 0.9% FLUSH 10 ML FLUSH IV FLUSH SCH ×2 (08:25→20:55)
[2017-02-23] MEDS: ACETAMINOPHEN 650 MG/20.3 ML UDC PO PRN ×2 (08:26→20:54)
[2017-02-23] MEDS: CHLORHEXIDINE 0.12% (ORAL KIT) 15 ML CUP MT SCH ×2 (08:29→20:56)
--- NOTE | 2017-02-23 10:30 | HHI.CCPN ---
Subjective Remarks/Hospital Course 02/04: 71-year-old female with a medical history significant for colon cancer in 2003 for which she underwent partial colon resection and chemotherapy, esophageal stricture with significant weight loss due to poor by mouth intake for which she was hospitalized in [place] in November 2016 for 2 weeks treated for pneumonia and subsequently evaluated for dysphagia and was found to have a sufficient stricture for which she was transferred to [place] in [place] and underwent esophageal dilatation and was subsequently discharged 2 weeks later on a pured diet. Patient moved to [place] with her granddaughter and a few beats VAC was admitted to [facility] for worsening shortness of breath and was diagnosed with a pneumonia, hyponatremia. She was treated with antibiotics and subsequently discharged home however the following day had to be readmitted at [facility] for unresolved shortness of breath where she was hospitalized for a week and subsequently discharged to [facility] 3 days prior to this admission. Patient's by mouth intake has been poor since her discharge 3 days back according to her granddaughter as the pured diet at the [place] [facility] is to take. Patient was found to have altered mental status today and was found slumped to one side with poor respirations. EMS was called and patient was noted to have O2 sats in the 60s. She was transported to the emergency room where she was placed on BiPAP for respiratory distress with hypoxic respiratory failure. She was also noted to be hypertensive on arrival with systolic blood pressure in the 200s. Patient was also found to have a sodium of 118. I was contacted by ER physician and accepted patient for admission to the ICU. When I evaluated the patient in the ER she was on BiPAP with full facemask. History was obtained by discussion with patient's granddaughter was at the bedside. Patient was much more awake at this time and trying to communicate however in view of BiPAP requirement was difficult to communicate with. She denied any chest pain at the time. Patient has chronic diarrhea since her colon surgery in 2003. Per the granddaughter she was doing well till about 3 months ago when she started having significant weight loss and poor by mouth intake possibly related to esophageal stricture and the fact that she was taking care of her sick family member at home. She has been advised a PEG tube per the granddaughter because of her poor nutritional status and poor by mouth intake. She has had problems with hyponatremia off and on for a while. Patient's granddaughter is very concerned about her poor nutritional status. 02/05: Tolerating nasal cannula. Underwent PEG tube placement by IR today. Sodium 122. 02/06 No events overnight. s/p PEG tube placement yesterday. Sodium level 131 this morning 02/07 No events overnight. On 50% VM with good sats. 02/08 No events overnight. Afebrile . Off BIPAP. 02/09 Patient is on BIPAP 02/03 with 45% FIO2> Afebrile. 02/10 Patient was intubated early this morning for acute hypercapnic resp acidosis. Afebrile. 02/11 No events overnight. Patient remains intubated. Afebrile. 02/12 Patient remains intubated and on Precedex drip for sedation. Afebrile. 02/13 Patient was extubated yesterday and reintubated late afternoon for acute resp acidosis. afebrile. 02/14: remains intubated. appears very weak. long conversation with granddaughter and medical decision-maker at bedside. likely will require tracheostomy given repeat re-intubations and chronic debilitation. granddaughter requests we wait until thursday or thursday, and requests it be done in the OR and not at bedside. 02/15: wake and more alert. however, only tolerated 10 minutes of CPAP before becoming tachypneic and failing. gen surg consulted for trach: family requests OR trach due to concerns over infection risk at bedside. I counseled patient's family that there was no increased risk of infection, and the trachea is inherently an unsterile environment with endotracheal tube in place, but family insists on OR trach. hypernatremia slightly worse despite increasing free water. 02/16: still awake and alert. failed CPAP again today. plan for trach today. 02/17: s/p trach yesterday. doing well. still failing CPAP for weakness and tachypnea. needs LTAC. hyponatremia and hypokalemia: kcl replacement and holding free water. 02/18: sodium improving. doing well. needs aggressive PT. 02/19 No events overnight. On ventilator via trach. Afebrile. 02/20 No events overnight. For Colonoscopy today. Afebrile. 02/21 Patient refused colonoscopy yesterday. Tolerated TP's during day and placed on CPAP overnight. Afebrile. 02/22 Patient went into Afib with RVR overnight given Lopressor 5mg IV x1 and Mag sulfate. T:103 this morning 02/23: Remains on mechanical ventilation via tracheostomy. On tube feeds via PEG. No melena or rectal bleeding. Awaiting repeat CBC for hemoglobin 7 on a.m. labs Objective Vital Signs Date Time Temp Pulse Resp B/P (MAP) Pulse Ox O2 Delivery O2 Flow Rate FiO2 02/23/17 09:26 20 02/23/17 08:00 35 02/23/17 08:00 80 02/23/17 06:12 100 02/23/17 04:00 98.6 110/56 (74) 02/21/17 20:32 T-piece 02/21/17 08:42 6.00 Intake and Output 02/23/17 02/23/17 02/24/17 08:00 16:00 00:00 Intake Total 925 ml Balance 925 ml Result Diagram: 02/23/17 0530 02/23/17 0530 Imaging Last Impressions Chest X-Ray 02/19/17 0000 Signed Impressions: Service Date/Time: January 08:52 - CONCLUSION: 1. Interval improvement in bilateral lower lobe infiltrates and improving left sided effusion as detailed above. 2. Interval removal of the endotracheal tube with placement of a tracheostomy. Tip is appropriately positioned at the clavicular head. Nura Cook MD Abdomen/Pelvis CT 02/14/17 0000 Signed Impressions: Service Date/Time: Tuesday, February 14, 2017 23:14 - CONCLUSION: 1. Nonspecific small ascites with bilateral pleural effusions and body wall edema/anasarca. No abscess demonstrated. 2. Possible mass of the lower rectum and please correlate clinically. 3. Gastric feeding tube with tip in the lower body. 4. Sigmoid colon diverticulosis without perceptible acute inflammatory changes. 5. Cholelithiasis without evidence of cholecystitis or biliary obstruction. Phan Lomas MD Gastrostomy Tube Placement 02/05/17 0000 Signed Impressions: Service Date/Time: January 16:47 - CONCLUSION: Uncomplicated gastrostomy tube placement as above. Jorje Josue MD Lower Extremity Ultrasound 02/04/17 0000 Signed Impressions: Service Date/Time: Saturday, February 04, 2017 21:13 - CONCLUSION: 1. No evidence of deep venous thrombosis within the lower extremities. 2. Popliteal cyst on the left measuring 2.2 x 1.5 x 0.9 cm. Julian Mcmahan MD Head CT 02/04/17 0000 Signed Impressions: Service Date/Time: Saturday, February 04, 2017 17:50 - CONCLUSION: 1. No acute intracranial abnormality. 2. Tiny fluid level within the right maxillary sinus. Julian Mcmahan MD CT Angiography 02/04/17 0000 Signed Impressions: Service Date/Time: Saturday, February 04, 2017 17:54 - CONCLUSION: 1. No evidence of pulmonary embolism. 2. Bibasilar alveolar consolidations as well as scattered perihilar patchy opacities suggestive of probable pneumonia. Clinical correlation is recommended. 3. 1.7 cm right thyroid nodule. Julian Mcmahan MD Abdomen X-Ray 02/04/17 Signed Impressions: Service Date/Time: January 05:52 - CONCLUSION: Interval placement of nasogastric tube with the tip in the left mainstem bronchus. Caesar Ramos MD Objective Remarks GENERAL: frail elderly female, lying in bed, trach in place SKIN: Warm and dry. HEAD: Normocephalic. EYES: No scleral icterus. No injection or drainage. NECK: trachea midline. No JVD. trach in place. CARDIOVASCULAR:Tachycardic, nl S1, S2 RESPIRATORY: On mechanical ventilation via tracheostomy, good air entry bilaterally, scattered rhonchi, no wheezing GASTROINTESTINAL: Abdomen soft, non-tender, nondistended. no guarding. MUSCULOSKELETAL: No cyanosis, or edema. Neuro: RASS -1. follows commands. moves all extremities. A/P Assessment and Plan Assessment: 71yF with at least a 3 month chronic course of failure to thrive and weight loss, esophageal stricture, and now recurrent hypoxic and hypercarbic respiratory failure requiring multiple intubations. She needs aggressive pulmonary rehab in an LTAC type facility. Plan: Neuro: Acute metabolic encephalopathy Anxiety Insomnia - Monitor neuro status. On no sedation family have asked that we avoid fentanyl, versed, and propofol because in their past experience, she has reacted poorly to these. they request Precedex only. Xanax to 0.5mg po q6h prn melatonin 5mg po qHS for sleep CV: New onset Afib with RVR Monitor HR and BP keep MAP>65mmHg Check EKG, Ck/trop, 2D echo to eval LV function Pulm: Recurrent acute hypercarbic and hypoxic respiratory failure likely secondary to deconditioning and weakness. likely also large component of silent or overt aspiration and inability to control secretions. Continue with vent support keep sat >92% On PRVC 16, 450, 1.0, 5, 40% Bronchodilators. ICU vent bundle. CT chest with no evidence of PE and shows bibasilar infiltrates concerning for recurrent aspiration pneumonia Pulm is following. continue daily SBTs. needs LTAC. s/p trach 02/[address] Chaudhry prednisone taper. GI/liver: Failure to thrive Hypernatremia- resolved. Free water deficit- resolved. Chronic diarrhea History of esophageal stricture status post recent esophageal dilation History of colon cancer Acute protein calorie malnutrition - severe hyponatremia- improving. s/p PEG tube placement by IR 02/05 On Tube feeds(Jevity 1.5 @ 40ml/hr) GI is following for ? rectal mass on CT abdomen. Patient refused colonoscopy. Check tumor markers- CEA level and CA19-9. Renal/: Acute intravascular volume overload- improving. Metabolic alkalosis Monitor renal function, I/O's, electrolytes replacement per protocol. ID: Healthcare Associated Pneumonia- s/p full course abx ( Cefepime, Azithromycin). Will place on Aztreonam, Give vanco 1 dose x1 and panculture(( Blood, sputum, UA with cx if indicated) for worsening leukocytosis and new onset fever -C-diff PCR is negative on 02/21 and 02/10 ID following. Endocrine: Hyperglycemia of Critical Illness SSI for glycemic control Heme-onc: Anemia secondary to chronic disease Monitor CBC, transfuse to keep Hgb greater than 8gm% Prophylaxis: Pepcid/SCDs. heparin SQ( H/H stable and no signs of bleeding) Palliative care is following Awaiting placement in LTAC facility Level 3 Carl Nieto MD Feb 23, 2017 10:30
[2017-02-23 10:42] LABS: AUTOMATED NEUTROPHIL # 5.6 TH/MM3 (1.8-7.7); BASOPHIL % 0.8 % (0.0-2.0); EOSINOPHIL # 0.1 TH/MM3 (0-0.4); EOSINOPHIL % 0.9 % (0.0-4.0); LYMPH % 6.3 % (9.0-44.0); LYMPHOCYTE # 0.4 TH/MM3 (1.0-4.8); MEAN CELL VOLUME 86.1 FL (80.0-100.0); MEAN CORPUSCULAR HEMOGLOBIN 28.9 PG (27.0-34.0); MEAN CORPUSCULAR HGB CONC 33.5 % (32.0-36.0); MEAN PLATELET VOLUME 8.3 FL (7.0-11.0); MONO % 5.2 % (0.0-8.0); MONOCYTE # 0.3 TH/MM3 (0-0.9); NEUT % 86.8 % (16.0-70.0); PLATELET COUNT 124 TH/MM3 (150-450); RED BLOOD COUNT 2.23 MIL/MM3 (4.00-5.30); RED CELL DISTRIBUTION WIDTH 16.9 % (11.6-17.2); WHITE BLOOD COUNT 6.4 TH/MM3 (4.0-11.0)
[2017-02-23 10:52] LABS: HEMATOCRIT 19.2 % (35.0-46.0); HEMOGLOBIN 6.5 GM/DL (11.6-15.3)
[2017-02-23] MEDS ORDERED: SODIUM CHLOR 0.9% 250 ML INJ 250 ML IV ONE (11:00)
--- NOTE | 2017-02-23 13:46 | HHI.IDPN ---
Subjective Subjective Remarks Diarrhea co abdominal pain 3 U Hb drop in 24 hrs No fever in 24 hrs Antibiotics azactam, vancomycin flagyl micafungin Allergies: Coded Allergies: Penicillins (Verified Allergy, Unknown, 02/04/17) Objective . Vital Signs Date Time Temp Pulse Resp B/P (MAP) Pulse Ox O2 Delivery O2 Flow Rate FiO2 02/23/17 12:00 35 02/23/17 12:00 74 02/23/17 11:22 100 35 02/23/17 10:00 80 02/23/17 10:00 75 02/23/17 09:26 20 02/23/17 08:16 100 35 02/23/17 08:00 35 02/23/17 08:00 98.8 80 20 102/51 (68) 100 02/23/17 08:00 80 02/23/17 06:12 100 35 02/23/17 06:00 76 02/23/17 04:00 98.6 73 18 110/56 (74) 100 02/23/17 04:00 35 02/23/17 04:00 73 02/23/17 02:03 100 35 02/23/17 02:00 77 02/23/17 00:00 35 02/23/17 00:00 98.6 76 16 95/50 (65) 100 02/23/17 00:00 76 02/22/17 22:00 80 02/22/17 21:37 100 35 02/22/17 20:00 82 02/22/17 20:00 35 02/22/17 20:00 99.4 82 17 95/54 (68) 100 02/22/17 18:00 85 02/22/17 16:00 80 02/22/17 16:00 99.7 80 16 104/51 (68) 100 02/22/17 16:00 40 02/22/17 15:21 100 35 02/22/17 14:00 78 . Laboratory Tests Test 02/22/17 04:25 02/23/17 05:30 02/23/17 10:30 White Blood Count 14.7 TH/MM3 6.7 TH/MM3 6.4 TH/MM3 Red Blood Count 3.39 MIL/MM3 2.35 MIL/MM3 2.23 MIL/MM3 Hemoglobin 9.6 GM/DL 7.0 GM/DL 6.5 GM/DL Hematocrit 29.5 % 20.9 % 19.2 % Mean Corpuscular Volume 87.0 FL 89.3 FL 86.1 FL Mean Corpuscular Hemoglobin 28.4 PG 29.9 PG 28.9 PG Mean Corpuscular Hemoglobin Concent 32.7 % 33.5 % 33.5 % Red Cell Distribution Width 16.3 % 16.6 % 16.9 % Platelet Count 263 TH/MM3 123 TH/MM3 124 TH/MM3 Mean Platelet Volume 8.5 FL 8.5 FL 8.3 FL Neutrophils (%) (Auto) 92.5 % 88.5 % 86.8 % Lymphocytes (%) (Auto) 4.0 % 5.7 % 6.3 % Monocytes (%) (Auto) 2.1 % 4.8 % 5.2 % Eosinophils (%) (Auto) 0.3 % 0.8 % 0.9 % Basophils (%) (Auto) 1.1 % 0.2 % 0.8 % Neutrophils # (Auto) 13.6 TH/MM3 6.0 TH/MM3 5.6 TH/MM3 Lymphocytes # (Auto) 0.6 TH/MM3 0.4 TH/MM3 0.4 TH/MM3 Monocytes # (Auto) 0.3 TH/MM3 0.3 TH/MM3 0.3 TH/MM3 Eosinophils # (Auto) 0.0 TH/MM3 0.1 TH/MM3 0.1 TH/MM3 Basophils # (Auto) 0.2 TH/MM3 0.0 TH/MM3 0.0 TH/MM3 CBC Comment DIFF FINAL DIFF FINAL DIFF FINAL Differential Comment Laboratory Tests Test 02/22/17 04:25 02/22/17 08:12 02/22/17 09:14 02/23/17 05:30 Blood Urea Nitrogen 39 MG/DL 38 MG/DL Creatinine 0.54 MG/DL 0.52 MG/DL Random Glucose 143 MG/DL 140 MG/DL Calcium Level 8.4 MG/DL 7.7 MG/DL Sodium Level 141 MEQ/L 142 MEQ/L Potassium Level 5.1 MEQ/L 3.7 MEQ/L Chloride Level 105 MEQ/L 111 MEQ/L Carbon Dioxide Level 29.1 MEQ/L 24.0 MEQ/L Anion Gap 7 MEQ/L 7 MEQ/L Estimat Glomerular Filtration Rate 111 ML/MIN 116 ML/MIN Total Creatine Kinase 27 U/L Troponin I 0.02 NG/ML Carcinoembryonic Antigen 4.2 NG/ML CA 19-9 Antigen 46.3 U/ML Total Protein 4.6 GM/DL Albumin 2.2 GM/DL Phosphorus Level 1.4 MG/DL Magnesium Level 2.1 MG/DL Alkaline Phosphatase 81 U/L Aspartate Amino Transf (AST/SGOT) 15 U/L Alanine Aminotransferase (ALT/SGPT) 16 U/L Total Bilirubin 0.5 MG/DL Microbiology Date/Time Source Procedure Growth Status 02/22/17 08:32 Blood Peripheral Aerobic Blood Culture - Preliminary NO GROWTH IN 1 DAY Resulted 02/22/17 08:32 Blood Peripheral Anaerobic Blood Culture - Preliminary NO GROWTH IN 1 DAY Resulted 02/22/17 08:12 Blood Peripheral Aerobic Blood Culture - Preliminary NO GROWTH IN 1 DAY Resulted 02/22/17 08:12 Blood Peripheral Anaerobic Blood Culture - Preliminary NO GROWTH IN 1 DAY Resulted 02/22/17 08:40 Urine Catheterized Urine Urine Culture - Preliminary IMMATURE GROWTH - REINCUBATE Resulted Imaging Last Impressions Chest X-Ray 02/22/17 0000 Signed Impressions: Service Date/Time: Wednesday, February 22, 2017 08:10 - CONCLUSION: Decreasing parenchymal changes left base. Tracheostomy tube in good position. Gregorio Jacob MD FACR Abdomen/Pelvis CT 02/14/17 0000 Signed Impressions: Service Date/Time: Tuesday, February 14, 2017 23:14 - CONCLUSION: 1. Nonspecific small ascites with bilateral pleural effusions and body wall edema/anasarca. No abscess demonstrated. 2. Possible mass of the lower rectum and please correlate clinically. 3. Gastric feeding tube with tip in the lower body. 4. Sigmoid colon diverticulosis without perceptible acute inflammatory changes. 5. Cholelithiasis without evidence of cholecystitis or biliary obstruction. Phan Lomas MD Gastrostomy Tube Placement 02/05/17 0000 Signed Impressions: Service Date/Time: January 16:47 - CONCLUSION: Uncomplicated gastrostomy tube placement as above. Jorje Josue MD Lower Extremity Ultrasound 02/04/17 0000 Signed Impressions: Service Date/Time: Saturday, February 04, 2017 21:13 - CONCLUSION: 1. No evidence of deep venous thrombosis within the lower extremities. 2. Popliteal cyst on the left measuring 2.2 x 1.5 x 0.9 cm. Julian Mcmahan MD Head CT 02/04/17 0000 Signed Impressions: Service Date/Time: Saturday, February 04, 2017 17:50 - CONCLUSION: 1. No acute intracranial abnormality. 2. Tiny fluid level within the right maxillary sinus. Julian Mcmahan MD CT Angiography 02/04/17 0000 Signed Impressions: Service Date/Time: Saturday, February 04, 2017 17:54 - CONCLUSION: 1. No evidence of pulmonary embolism. 2. Bibasilar alveolar consolidations as well as scattered perihilar patchy opacities suggestive of probable pneumonia. Clinical correlation is recommended. 3. 1.7 cm right thyroid nodule. Julian Mcmahan MD Abdomen X-Ray 02/04/17 Signed Impressions: Service Date/Time: January 05:52 - CONCLUSION: Interval placement of nasogastric tube with the tip in the left mainstem bronchus. Caesar Ramos MD Physical Exam CONSTITUTIONAL/GENERAL: This is a poorly nourished patient, in no apparent distress. TUBES/LINES/DRAINS: SKIN: No jaundice, rashes, or lesions. Skin temperature appropriate. Not diaphoretic. EYES: Pupils equal and round and reactive. Extraocular motions intact. No scleral icterus. No injection or drainage. Fundi not examined. ENT: Hearing grossly normal. Nose without bleeding or purulent drainage. Throat without visible erythema, exudates, masses, or lesions. CARDIOVASCULAR: Regular rate and rhythm without murmurs, gallops, or rubs. No JVD. Peripheral pulses symmetric. RESPIRATORY/CHEST: Symmetric, unlabored respirations. Clear to auscultation. Breath sounds equal bilaterally. No wheezes, rales, or rhonchi. GASTROINTESTINAL: Abdomen soft,more tender + distended. ? guadring No hepato-splenomegaly, or palpable masses. No guarding. Bowel sounds present. GENITOURINARY: Without palpable bladder distension. cath in place with clear yellow urine MUSCULOSKELETAL: Extremities without clubbing, cyanosis, or edema. No joint tenderness or effusion noted. No calf tenderness. No mottling or clubbing. PSYCHIATRIC: No obvious anxiety/depression. no apparent hallucinations or other psychotic thought process. Assessment & Plan Remarks PNA, culture neg Acute VDRF - recurrent intubation failure to wean Diarrhea, abx associated - C.diff negative nmore diarrhea Rectam mass, h/o cancer - pt refusing colonoscopy Abdominal pain, diffuse - improved worsening leukocytosis Profound malnourishment, hypoalbuminemia New fever, sepsis / source ? abdominal pain , diarrhea rechk stool for c.diff fu urine clx fu blood clx untill final sputum clx cont azactam, flagyl, vanco, micafungin fu WBC contrasted CT abd/pel dw Ness Gandhi MD Feb 23, 2017 13:46
--- NOTE | 2017-02-23 14:22 | HHI.PR ---
Subjective Remarks 71 YOWF with VDRF,Bibasilar infilt Sedated with Fentanyl BP borderline gets anxious On Vent, AC 16 Feels depressed Objective Vital Signs Vital Signs Date Time Temp Pulse Resp B/P (MAP) Pulse Ox O2 Delivery O2 Flow Rate FiO2 02/23/17 12:00 35 02/23/17 12:00 74 02/23/17 11:22 100 35 02/23/17 10:00 80 02/23/17 10:00 75 02/23/17 09:26 20 02/23/17 08:16 100 35 02/23/17 08:00 35 02/23/17 08:00 98.8 80 20 102/51 (68) 100 02/23/17 08:00 80 02/23/17 06:12 100 35 02/23/17 06:00 76 02/23/17 04:00 98.6 73 18 110/56 (74) 100 02/23/17 04:00 35 02/23/17 04:00 73 02/23/17 02:03 100 35 02/23/17 02:00 77 02/23/17 00:00 35 02/23/17 00:00 98.6 76 16 95/50 (65) 100 02/23/17 00:00 76 02/22/17 22:00 80 02/22/17 21:37 100 35 02/22/17 20:00 82 02/22/17 20:00 35 02/22/17 20:00 99.4 82 17 95/54 (68) 100 02/22/17 18:00 85 02/22/17 16:00 80 02/22/17 16:00 99.7 80 16 104/51 (68) 100 02/22/17 16:00 40 02/22/17 15:21 100 35 I/O 02/22/17 02/22/17 02/22/17 02/23/17 02/23/17 02/23/17 07:00 15:00 23:00 07:00 15:00 23:00 Intake Total 565 ml 1450 ml 2831 ml 925 ml Output Total 175 ml 1000 ml Balance 390 ml 1450 ml 1831 ml 925 ml IV Total 100 ml 1450 ml 2150 ml 400 ml Tube Feeding 465 ml 581 ml 475 ml Other 100 ml 50 ml Output Urine Total 175 ml 1000 ml # Bowel Movements 2 0 Result Diagram: 02/23/17 1030 02/23/17 0530 Objective Remarks GENERAL: Frail elderly female, on Vent SKIN: Warm and dry. HEAD: Normocephalic. EYES: No scleral icterus. No injection or drainage. NECK: Supple, trachea midline. No JVD or lymphadenopathy. CARDIOVASCULAR: Regular rate and rhythm without murmurs, gallops, or rubs. RESPIRATORY: Breath sounds equal bilaterally. No accessory muscle use. GASTROINTESTINAL: Abdomen soft, non-tender, nondistended. MUSCULOSKELETAL: No cyanosis, or edema. BACK: Nontender without obvious deformity. No CVA tenderness. A/P Assessment and Plan VDRF, s/p Trach 02/16 Bibasilar infilterates Hypotension Anxiety H/O Ca colon Weight loss PLAN: Cont Abx Vanco, Cefepime and Zithro IV Solumedrol Xanax 0.5 mg q 6 hrs Trach care Vent Support Tube feeding Yusef Hernandez MD Feb 23, 2017 14:22
[2017-02-23] MEDS ORDERED: DIATRIZOATE MEGLUM/DIATRIZOATE SOD 9 ML CUP PO ONE (14:30)
[2017-02-23] MEDS: ALPRAZolam 0.5 MG TAB PO PRN (17:37)
[2017-02-23] MEDS: MELATONIN 5 MG TAB PO SCH (20:55)
[2017-02-23] MEDS: MICAFUNGIN INJ 150 MG in SODIUM CHLORIDE 0.9% INJ 100 ML IV SCH (20:55)
[2017-02-23 21:21] LABS: HEMATOCRIT 25.1 % (35.0-46.0); HEMOGLOBIN 8.5 GM/DL (11.6-15.3)
[2017-02-23] MEDS ORDERED: IOHEXOL 350 MG/ML 10 ML VIAL (for RAD DIAG) IVCONTRAST ONE (22:24)
--- NOTE | 2017-02-23 22:36 | RADRPT ---
EXAM DATE/TIME: 02/23/2017 22:14 [facility] COMPARISON: CT ABDOMEN & PELVIS W/O CONTRAST, February 14, 2017, 23:14. INDICATIONS : Abdominal pain upper and lower region. IV CONTRAST: 75 cc Omnipaque 350 (iohexol) IV ORAL CONTRAST: Prescribed oral contrast ingested. RADIATION DOSE: 5.33 CTDIvol (mGy) MEDICAL HISTORY : Carcinoma, colon. Hernia, hiatal. SURGICAL HISTORY : Colon resection. left hip replacement ENCOUNTER: Initial ACUITY: 2 weeks PAIN SCALE: Non-responsive LOCATION: abdomen TECHNIQUE: Volumetric scanning of the abdomen and pelvis was performed. Using automated exposure control and ad justment of the mA and/or kV according to patient size, radiation dose was kept as low as reasonably achievable to obtain optimal diagnostic quality images. DICOM format image data is available electro nically for review and comparison. FINDINGS: LOWER LUNGS: Small bilateral pleural effusions. Moderate left lower lobe atelectasis/ consolidation. Mild right lo wer lobe atelectasis/consolidation. LIVER: Collapsed gallbladder with gallstones again seen. Nonspecific diffuse gallbladder wall thickening. Li santiago are within normal limits. SPLEEN: Normal size without lesion. PANCREAS: Within normal limits. KIDNEYS: Normal in size and shape. There is no mass, stone or hydronephrosis. ADRENAL GLANDS: Within normal limits. VASCULAR: There is no aortic aneurysm. BOWEL/MESENTERY: Gastrostomy tube in place. No evidence of bowel dilatation. Scattered colonic diverticula. No evidenc e of acute diverticulitis. Small amount of free fluid in the left upper quadrant of the abdomen, jovi lar to the prior study. No evidence of free air. ABDOMINAL WALL: Diffuse superficial soft tissue edema/anasarca. RETROPERITONEUM: There is no lymphadenopathy. BLADDER: Small amount of gas in the bladder likely related to catheterization. REPRODUCTIVE: Within normal limits. INGUINAL: There is no lymphadenopathy or hernia. MUSCULOSKELETAL: Within normal limits for patient age. Left total hip prosthesis. CONCLUSION: 1. Small amount of ascites, similar to the prior study. 2. Prominent diffuse superficial soft tissue edema. 3. Gastrostomy tube in place. 4. Cholelithiasis. Gallbladder collapsed. 5. Bilateral lower lobe atelectasis/consolidation and bilateral pleural effusions. 6. No evidence of the previously noted possible rectal mass. There is intraluminal contrast in this r egion. Mac Werner MD on February 23, 2017 at 22:29 Board Certified Radiologist. This report was verified electronically.
[2017-02-24] VITALS (20 sets, daily range): BP systolic 94–117; BP diastolic 50–58; PULSE 64–89; RESP 16–24; TEMP 97.8–98.9; O2SAT 100
[2017-02-24] MEDS: ALPRAZolam 0.5 MG TAB PO PRN ×3 (01:44→18:29)
[2017-02-24] MEDS: INSULIN NovoLIN REGULAR SUPPLEMENTAL SCALE SQ SCH ×4 (04:00→21:39)
[2017-02-24] MEDS: CHLORHEXIDINE GLUCONATE 2 % 1 PACK (2 CLOTHS) TOP SCH (04:00)
[2017-02-24] MEDS: metroNIDAZOLE 500 MG INJ 100 ML IV SCH ×3 (04:26→21:40)
[2017-02-24 06:16] LABS: HEMATOCRIT 24.3 % (35.0-46.0); HEMOGLOBIN 8.5 GM/DL (11.6-15.3); MEAN CORPUSCULAR HEMOGLOBIN 31.4 PG (27.0-34.0); MEAN CORPUSCULAR HGB CONC 34.9 % (32.0-36.0); MEAN PLATELET VOLUME 8.2 FL (7.0-11.0); PLATELET COUNT 134 TH/MM3 (150-450); RED BLOOD COUNT 2.71 MIL/MM3 (4.00-5.30); RED CELL DISTRIBUTION WIDTH 16.8 % (11.6-17.2); WHITE BLOOD COUNT 6.7 TH/MM3 (4.0-11.0)
[2017-02-24 06:40] LABS: BICARBONATE 21.7 MEQ/L (21.0-32.0); CALCIUM 7.4 MG/DL (8.5-10.1); CREATININE 0.48 MG/DL (0.50-1.00)
[2017-02-24 06:54] LABS: TOTAL PROTEIN 4.3 GM/DL (6.4-8.2)
[2017-02-24] MEDS: CHLORHEXIDINE 0.12% (ORAL KIT) 15 ML CUP MT SCH ×2 (08:00→21:47)
[2017-02-24] MEDS: AZTREONAM INJ 1,000 MG in SODIUM CHLORIDE 0.9% INJ 100 ML IV SCH ×3 (08:02→23:45)
[2017-02-24] MEDS: HEPARIN SODIUM - SQ 10,000 UNITS/ML VIAL SQ SCH ×2 (08:02→21:40)
[2017-02-24] MEDS: SODIUM CHLORIDE 0.9% FLUSH 10 ML FLUSH IV FLUSH SCH ×2 (08:03→21:00)
[2017-02-24] MEDS: VANCOMYCIN 1,000 MG/NS 250 ML IV SCH ×2 (08:03)
[2017-02-24] MEDS: FAMOTIDINE 20 MG TAB NG SCH (08:05)
--- NOTE | 2017-02-24 11:23 | HHI.IDPN ---
Subjective Subjective Remarks ID COVERAGE Chart reviewed 71 yo female with h/o remote colon ca admitted one week ago with resp issues CTA showed no embolism, but had pneumonia She was on BIPAP for a week and got intubated today after eventually failing it Her sputum was purulent and has gram positive on Gstain Notes reviewed Last fever 02/22 Repeat C/S negative WBC normal CT A/P no intraabdominal pathology Has diarrhea On the vent Antibiotics Azactam Vancomycin Flagyl Micafungin Current Medications Medications (Trade) Dose Ordered Sig/Celine Route Start Time Stop Time Status Last Admin (NS Flush) 2 ml UNSCH PRN IV FLUSH 02/04/17 13:15 02/21/17 09:46 (NS Flush) 2 ml BID IV FLUSH 02/04/17 21:00 02/24/17 08:03 (Duoneb Neb) 1 ampule Q4HR NEB PRN INH 02/04/17 14:00 02/21/17 20:32 (Peridex 0.12% Liq) 15 ml BID@08,20 MT 02/04/17 20:00 02/24/17 08:00 Miscellaneous Information 1 Q361D XX 02/04/17 13:15 (Chlorhexidine 2% Cloth) 3 pack Taper DAILY@04 TOP 02/05/17 04:00 02/01/18 03:59 02/24/17 04:00 (Chlorhexidine 2% Cloth) 3 pack UNSCH PRN TOP 02/04/17 13:15 (Trandate Inj) 10 mg Q2HR PRN IV PUSH 02/04/17 13:30 Potassium Chloride 100 ml @ 50 mls/hr Q2H PRN IV 02/06/17 16:00 Potassium Chloride 100 ml @ 50 mls/hr Q2H PRN IV 02/06/17 16:00 02/19/17 08:48 (K-Lyte Cl Eff) 50 meq UNSCH PRN PO 02/06/17 16:00 02/21/17 09:48 Potassium Chloride 100 ml @ 25 mls/hr UNSCH PRN IV 02/06/17 16:00 Potassium Chloride 100 ml @ 50 mls/hr Q2H PRN IV 02/06/17 16:00 Magnesium Sulfate 4 gm/Sodium Chloride 100 ml @ 50 mls/hr UNSCH PRN IV 02/06/17 16:00 (Mag-Ox) 800 mg UNSCH PRN PO 02/06/17 16:00 02/07/17 12:20 Magnesium Sulfate 2 gm/Sodium Chloride 100 ml @ 50 mls/hr UNSCH PRN IV 02/06/17 16:00 (K-Phos) 2,000 mg Q4H PRN PO 02/06/17 16:00 Sodium Phosphate 30 mmol/Sodium Chloride 250 ml @ 42 mls/hr UNSCH PRN IV 02/06/17 16:00 02/08/17 08:46 (K-Phos) 2,000 mg UNSCH PRN PO/TUBE 02/06/17 16:00 Potassium Phosphate 30 mmol/ Sodium Chloride 260 ml @ 42 mls/hr UNSCH PRN IV 02/06/17 16:00 02/11/17 14:36 (Tylenol 650 Mg/ 20 ml Liq) 650 mg Q6H PRN PO 02/09/17 15:30 02/23/17 20:54 (Brethine Inj) 1 mg UNSCH PRN SQ 02/16/17 11:15 (Melatonin) 5 mg HS PO 02/17/17 21:00 02/23/17 20:55 (Xanax) 0.5 mg Q6H PRN PO 02/17/17 18:45 02/24/17 01:44 (Pepcid) 20 mg DAILY NG 02/19/17 09:00 02/24/17 08:05 Potassium Chloride 100 ml @ 25 mls/hr UNSCH PRN IV 02/19/17 09:15 (KCl Powder) 40 meq UNSCH PRN PO 02/19/17 09:15 02/19/17 09:31 (Heparin Inj) 5,000 units Q12HR SQ 02/21/17 09:00 02/24/17 08:02 (D50w (Vial) Inj) 50 ml UNSCH PRN IV PUSH 02/21/17 15:30 (Glucagon Inj) 1 mg UNSCH PRN OTHER 02/21/17 15:30 (NovoLIN R SUPPLEMENTAL SCALE) 1 Q6H SQ 02/21/17 16:00 02/23/17 10:31 Aztreonam 1000 mg/ Sodium Chloride 100 ml @ 200 mls/hr Q8H IV 02/22/17 08:00 02/24/17 08:02 Sodium Chloride 1,000 ml @ 75 mls/hr [id number] IV 02/22/17 10:30 02/23/17 23:07 Pharmacy Profile Note 0 ml @ 0 mls/hr UNSCH OTHER 02/22/17 18:15 Metronidazole 100 ml @ 100 mls/hr Q8H IV 02/22/17 20:00 02/24/17 04:26 Micafungin Sodium 150 mg/Sodium Chloride 100 ml @ 100 mls/hr Q24H IV 02/22/17 21:00 02/23/17 20:55 Vancomycin HCl 1000 mg/Sodium Chloride 250 ml @ 250 mls/hr Q24H IV 02/23/17 09:00 02/24/17 08:03 Miscellaneous Information SPECIFIC LAB TO BE ESMER... ONCE ONCE .XX 02/25/17 08:45 02/25/17 08:46 Lines PIV Past Medical History Pneumonia Hyponatremia chronic Esophageal stricture with previous notation. Failure to thrive with progressive weight loss. Recurrent pneumonia. Past Surgical History Surgery for carcinoma colon. Allergies: Coded Allergies: Penicillins (Verified Allergy, Unknown, 02/04/17) Objective . Vital Signs Date Time Temp Pulse Resp B/P (MAP) Pulse Ox O2 Delivery O2 Flow Rate FiO2 02/24/17 09:02 100 35 02/24/17 08:00 35 02/24/17 06:00 67 02/24/17 04:06 100 35 02/24/17 04:00 35 02/24/17 04:00 67 02/24/17 04:00 98.4 67 17 104/58 (73) 100 02/24/17 02:00 67 02/24/17 00:02 100 35 02/24/17 00:00 98.4 71 18 94/50 (65) 100 02/24/17 00:00 71 02/24/17 00:00 35 02/23/17 22:10 100 100 02/23/17 22:00 122 02/23/17 20:28 100 35 02/23/17 20:00 107 02/23/17 20:00 99.2 70 18 107/54 (71) 100 02/23/17 20:00 35 02/23/17 18:00 73 02/23/17 17:54 100 35 02/23/17 17:00 75 02/23/17 16:00 35 02/23/17 16:00 72 02/23/17 16:00 99.8 73 24 104/53 (70) 100 02/23/17 14:56 98.9 76 23 89/50 100 02/23/17 14:20 100 35 02/23/17 14:00 74 02/23/17 12:00 98.9 74 23 88/51 (63) 100 02/23/17 12:00 35 02/23/17 12:00 74 02/23/17 11:22 100 35 . Laboratory Tests Test 02/23/17 05:30 02/23/17 10:30 02/23/17 21:00 02/24/17 05:30 White Blood Count 6.7 TH/MM3 6.4 TH/MM3 6.7 TH/MM3 Red Blood Count 2.35 MIL/MM3 2.23 MIL/MM3 2.71 MIL/MM3 Hemoglobin 7.0 GM/DL 6.5 GM/DL 8.5 GM/DL 8.5 GM/DL Hematocrit 20.9 % 19.2 % 25.1 % 24.3 % Mean Corpuscular Volume 89.3 FL 86.1 FL 90.0 FL Mean Corpuscular Hemoglobin 29.9 PG 28.9 PG 31.4 PG Mean Corpuscular Hemoglobin Concent 33.5 % 33.5 % 34.9 % Red Cell Distribution Width 16.6 % 16.9 % 16.8 % Platelet Count 123 TH/MM3 124 TH/MM3 134 TH/MM3 Mean Platelet Volume 8.5 FL 8.3 FL 8.2 FL Neutrophils (%) (Auto) 88.5 % 86.8 % Lymphocytes (%) (Auto) 5.7 % 6.3 % Monocytes (%) (Auto) 4.8 % 5.2 % Eosinophils (%) (Auto) 0.8 % 0.9 % Basophils (%) (Auto) 0.2 % 0.8 % Neutrophils # (Auto) 6.0 TH/MM3 5.6 TH/MM3 Lymphocytes # (Auto) 0.4 TH/MM3 0.4 TH/MM3 Monocytes # (Auto) 0.3 TH/MM3 0.3 TH/MM3 Eosinophils # (Auto) 0.1 TH/MM3 0.1 TH/MM3 Basophils # (Auto) 0.0 TH/MM3 0.0 TH/MM3 CBC Comment DIFF FINAL DIFF FINAL Differential Comment Laboratory Tests Test 02/23/17 05:30 02/24/17 05:30 Blood Urea Nitrogen 38 MG/DL 37 MG/DL Creatinine 0.52 MG/DL 0.48 MG/DL Random Glucose 140 MG/DL 152 MG/DL Total Protein 4.6 GM/DL 4.3 GM/DL Albumin 2.2 GM/DL Calcium Level 7.7 MG/DL 7.4 MG/DL Phosphorus Level 1.4 MG/DL Magnesium Level 2.1 MG/DL Alkaline Phosphatase 81 U/L Aspartate Amino Transf (AST/SGOT) 15 U/L Alanine Aminotransferase (ALT/SGPT) 16 U/L Total Bilirubin 0.5 MG/DL Sodium Level 142 MEQ/L 144 MEQ/L Potassium Level 3.7 MEQ/L 3.5 MEQ/L Chloride Level 111 MEQ/L 115 MEQ/L Carbon Dioxide Level 24.0 MEQ/L 21.7 MEQ/L Anion Gap 7 MEQ/L 7 MEQ/L Estimat Glomerular Filtration Rate 116 ML/MIN 127 ML/MIN Protein Corrected Calcium 9.0 MG/DL Microbiology Date/Time Source Procedure Growth Status 02/22/17 08:32 Blood Peripheral Aerobic Blood Culture - Preliminary NO GROWTH IN 2 DAYS Resulted 02/22/17 08:32 Blood Peripheral Anaerobic Blood Culture - Preliminary NO GROWTH IN 2 DAYS Resulted 02/22/17 08:12 Blood Peripheral Aerobic Blood Culture - Preliminary NO GROWTH IN 2 DAYS Resulted 02/22/17 08:12 Blood Peripheral Anaerobic Blood Culture - Preliminary NO GROWTH IN 2 DAYS Resulted 02/22/17 08:40 Urine Catheterized Urine Urine Culture - Preliminary IMMATURE GROWTH - REINCUBATE Resulted Imaging Abdomen/Pelvis CT 02/23/17 0000 Signed Impressions: Service Date/Time: Thursday, February 23, 2017 22:14 - CONCLUSION: 1. Small amount of ascites, similar to the prior study. 2. Prominent diffuse superficial soft tissue edema. 3. Gastrostomy tube in place. 4. Cholelithiasis. Gallbladder collapsed. 5. Bilateral lower lobe atelectasis/consolidation and bilateral pleural effusions. 6. No evidence of the previously noted possible rectal mass. There is intraluminal contrast in this region. Mac Werner MD Chest X-Ray 02/22/17 0000 Signed Impressions: Service Date/Time: Wednesday, February 22, 2017 08:10 - CONCLUSION: Decreasing parenchymal changes left base. Tracheostomy tube in good position. Gregorio Jacob MD FACR Chest X-Ray 02/22/17 0000 Signed Impressions: Service Date/Time: Wednesday, February 22, 2017 08:10 - CONCLUSION: Decreasing parenchymal changes left base. Tracheostomy tube in good position. Gregorio Jacob MD FACR Abdomen/Pelvis CT 02/14/17 0000 Signed Impressions: Service Date/Time: Tuesday, February 14, 2017 23:14 - CONCLUSION: 1. Nonspecific small ascites with bilateral pleural effusions and body wall edema/anasarca. No abscess demonstrated. 2. Possible mass of the lower rectum and please correlate clinically. 3. Gastric feeding tube with tip in the lower body. 4. Sigmoid colon diverticulosis without perceptible acute inflammatory changes. 5. Cholelithiasis without evidence of cholecystitis or biliary obstruction. Phan Lomas MD Gastrostomy Tube Placement 02/05/17 0000 Signed Impressions: Service Date/Time: January 16:47 - CONCLUSION: Uncomplicated gastrostomy tube placement as above. Jorje Josue MD Lower Extremity Ultrasound 02/04/17 0000 Signed Impressions: Service Date/Time: Saturday, February 04, 2017 21:13 - CONCLUSION: 1. No evidence of deep venous thrombosis within the lower extremities. 2. Popliteal cyst on the left measuring 2.2 x 1.5 x 0.9 cm. Julian Mcmahan MD Head CT 02/04/17 0000 Signed Impressions: Service Date/Time: Saturday, February 04, 2017 17:50 - CONCLUSION: 1. No acute intracranial abnormality. 2. Tiny fluid level within the right maxillary sinus. uJlian Mcmahan MD CT Angiography 02/04/17 0000 Signed Impressions: Service Date/Time: Saturday, February 04, 2017 17:54 - CONCLUSION: 1. No evidence of pulmonary embolism. 2. Bibasilar alveolar consolidations as well as scattered perihilar patchy opacities suggestive of probable pneumonia. Clinical correlation is recommended. 3. 1.7 cm right thyroid nodule. Julian Mcmahan MD Abdomen X-Ray 02/04/17 0000 Signed Impressions: Service Date/Time: January 05:52 - CONCLUSION: Interval placement of nasogastric tube with the tip in the left mainstem bronchus. Caesar Ramos MD Physical Exam GENERAL: Awake and alert, NAD, on the vent SKIN: No jaundice, rashes, or lesions. Skin temperature appropriate. Not diaphoretic. EYES: Pupils equal and round and reactive. Extraocular motions intact. No scleral icterus. No injection or drainage. Fundi not examined. ENT: Nose without bleeding or purulent drainage. Throat without visible erythema, exudates, masses, or lesions. NECK: Trach site ok CARDIOVASCULAR: Regular rate and rhythm without murmurs, gallops, or rubs. RESPIRATORY/CHEST: Symmetric, unlabored respirations. Clear to auscultation. Breath sounds equal bilaterally. No wheezes, rales, or rhonchi. GASTROINTESTINAL: Abdomen soft, not distended, (+) BS, with mild tenderness, no guarding or rebound GENITOURINARY: Without palpable bladder distension. cath in place with clear yellow urine MUSCULOSKELETAL: Extremities without clubbing, cyanosis, or edema. No calf tenderness. No mottling or clubbing. PSYCHIATRIC: Calm and cooperative : Cabrera in place, urine ok LINE: No evidence of infection Assessment & Plan Remarks PNA, culture neg Acute VDRF - recurrent intubation - failure to wean - S/P trach 02/16 Diarrhea, abx associated - C.diff negative Rectal mass, h/o cancer - pt refusing colonoscopy - last CT no mass seen on imaging Abdominal pain, diffuse - improved Leukocytosis Profound malnourishment, hypoalbuminemia New fever, sepsis / source, better PLAN Follow new C/S Continue Azactam Continue Vancomycin Continue Micafungin Continue Flagyl Monitor temps Monitor progress Will deescalate Abx on C/S available Mary Haro MD Feb 24, 2017 11:23
--- NOTE | 2017-02-24 15:10 | HHI.HCPN ---
Reason for visit a. To assist with evaluation and management of symptoms including:shortness of breath, weakness, diarrhea and abdominal pain. b. To assist medical decision maker(s) with: better understanding of current medical conditions; weighing benefits/burdens of medical treatment options; making medical treatment decisions. . Subjective/Interval History Patient seen and examined in ICU. Also present TERE Yi. Afebrile. Vital signs stable. [facility]%, has been on vent for past 48 hours. WBC 6.7, HGB 8.5, HCT 24.3, platelets 134. Urine culture 02/22/17 + enterococcus faecium VRE, MDRO. Cabrera in place. Repeat CT abdomen and pelvis on 02/23/17 revealed small amount of ascites, prominent diffuse superficial soft tissue edema, gastrostomy tube in place, cholelithiasis, gallbladder collapsed, bilateral lower lobe atelectasis/consolidation and bilateral pleural effusions, no evidence of the previously noted possible rectal mass. Tumor markers: CEA 4.2 (normal) and CA 19- 9 was 46.3 (slightly elevated likely due to inflammation ). Patient is awake and alert. Communicating by mouthing words and writing on notepad. She remembers meeting me on Thursday02/21/17. She asks me about the tumor marker results and CT results. She is telling me about her cancer history who her doctors were in [place] and that she had chemo and radiation. She tells me the symptoms she had prior to diagnosis, including bloody stool and diarrhea. Patient reports abdominal pain and diarrhea. Rates pain 2 out of 10. Indicates that pain improves slightly when the nurses medicate her. She is asking for Lomotil to control diarrhea. She reports that she has had long history of diarrhea and that Lomotil has worked in the past. Infectious disease following indicates diarrhea likely secondary to antibiotics, C diff negative. Patient is asking questions about discharge planning, insurance. Following my visit, case management notes indicate [id number] completed, [employer] insurance again declined LTAC placement. It appears continued plan for LTAC placement if [employer] authorizes. . Family/friend interactions No family at bedside. . Advance Directives Living Will: Never completed Health Care Surrogate: Copy in medical record Advance Directive Specifics Date completed: December 19, 2016 . Health Care Surrogate(s): Patient appears to be regaining capacity, recommend shared decision making as she is unable to speak due to trach. Patient has designated her granddaughter Connie Cotton as her primary healthcare surrogate and granddaughter`s Freddy Cotton as alternate HCS. . Significant change in goals: FULL CODE. Goals remain aggressive. Objective Vital Signs Date Time Temp Pulse Resp B/P (MAP) Pulse Ox O2 Delivery O2 Flow Rate FiO2 02/24/17 14:19 100 35 02/24/17 12:42 100 35 02/24/17 12:00 98.9 73 19 117/57 (77) 100 02/24/17 12:00 73 02/24/17 12:00 35 02/24/17 10:00 72 02/24/17 09:02 100 35 02/24/17 08:00 35 02/24/17 08:00 98.9 64 16 114/56 (75) 100 02/24/17 08:00 64 02/24/17 06:00 67 02/24/17 04:06 100 35 02/24/17 04:00 35 02/24/17 04:00 67 02/24/17 04:00 98.4 67 17 104/58 (73) 100 02/24/17 02:00 67 02/24/17 00:02 100 35 02/24/17 00:00 98.4 71 18 94/50 (65) 100 02/24/17 00:00 71 02/24/17 00:00 35 02/23/17 22:10 100 100 02/23/17 22:00 122 02/23/17 20:28 100 35 02/23/17 20:00 107 02/23/17 20:00 99.2 70 18 107/54 (71) 100 02/23/17 20:00 35 02/23/17 18:00 73 02/23/17 17:54 100 35 02/23/17 17:00 75 02/23/17 16:00 35 02/23/17 16:00 72 02/23/17 16:00 99.8 73 24 104/53 (70) 100 02/23/17 14:56 98.9 76 23 89/50 100 Intake & Output 02/24/17 02/24/17 07:00 19:00 Intake Total 1807 ml Output Total 650 ml Balance 1157 ml IV Total 1400 ml Tube Feeding 287 ml Other 120 ml Output Urine Total 650 ml # Bowel Movements 1 Physical Exam CONSTITUTIONAL/GENERAL: This is a cachectic, ill-looking elderly patient, appears older than stated age. TUBES/LINES/DRAINS: Trach to vent, PIV, PEG tube, SCDs. SKIN: No jaundice. Ecchymoses on upper extremities. Skin temperature cool to touch. EYES: Pupils equal and round and reactive. ENT: Hearing grossly normal. Nose without bleeding or purulent drainage. Moist oral mucosa. NECK: Trachea midline, trach to vent. CARDIOVASCULAR: Regular rate and rhythm without murmurs, gallops, or rubs. Edema to bilateral upper extremities RESPIRATORY/CHEST: Symmetric, unlabored respirations. Diminished Breath sounds equal bilaterally. GASTROINTESTINAL: Abdomen soft, non-tender, nondistended. Bowel sounds present. PEG tube. GENITOURINARY: Without palpable bladder distension. Cabrera catheter in place. MUSCULOSKELETAL: bilateral LE edema. NEUROLOGICAL: Awake and alert. Nods yes/no appropriately. Mouths words and writes on paper to communicate. Follows commands. Moves all extremities. PSYCHIATRIC: calm, flat affect. . . Diagnostic Tests Laboratory Laboratory Tests Test 02/22/17 04:25 02/22/17 08:12 02/22/17 08:40 02/22/17 09:14 White Blood Count 14.7 TH/MM3 (4.0-11.0) Red Blood Count 3.39 MIL/MM3 (4.00-5.30) Hemoglobin 9.6 GM/DL (11.6-15.3) Hematocrit 29.5 % (35.0-46.0) Mean Corpuscular Volume 87.0 FL (80.0-100.0) Mean Corpuscular Hemoglobin 28.4 PG (27.0-34.0) Mean Corpuscular Hemoglobin Concent 32.7 % (32.0-36.0) Red Cell Distribution Width 16.3 % (11.6-17.2) Platelet Count 263 TH/MM3 (150-450) Mean Platelet Volume 8.5 FL (7.0-11.0) Neutrophils (%) (Auto) 92.5 % (16.0-70.0) Lymphocytes (%) (Auto) 4.0 % (9.0-44.0) Monocytes (%) (Auto) 2.1 % (0.0-8.0) Eosinophils (%) (Auto) 0.3 % (0.0-4.0) Basophils (%) (Auto) 1.1 % (0.0-2.0) Neutrophils # (Auto) 13.6 TH/MM3 (1.8-7.7) Lymphocytes # (Auto) 0.6 TH/MM3 (1.0-4.8) Monocytes # (Auto) 0.3 TH/MM3 (0-0.9) Eosinophils # (Auto) 0.0 TH/MM3 (0-0.4) Basophils # (Auto) 0.2 TH/MM3 (0-0.2) CBC Comment DIFF FINAL Differential Comment Blood Urea Nitrogen 39 MG/DL (7-18) Creatinine 0.54 MG/DL (0.50-1.00) Random Glucose 143 MG/DL (74-106) Calcium Level 8.4 MG/DL (8.5-10.1) Sodium Level 141 MEQ/L (136-145) Potassium Level 5.1 MEQ/L (3.5-5.1) Chloride Level 105 MEQ/L (98-107) Carbon Dioxide Level 29.1 MEQ/L (21.0-32.0) Anion Gap 7 MEQ/L (5-15) Estimat Glomerular Filtration Rate 111 ML/MIN (>89) Total Creatine Kinase 27 U/L (26-192) Troponin I 0.02 NG/ML (0.02-0.05) Urine Color YELLOW (YELLW/STRAW) Urine Turbidity CLEAR (CLEAR) Urine pH 6.0 (5.0-8.5) Urine Specific [place] 1.014 (1.002-1.035) Urine Protein 30 mg/dL (NEG-TRACE) Urine Glucose (UA) 150 mg/dL (NEG) Urine Ketones NEG mg/dL (NEG) Urine Occult Blood TRACE (NEG) Urine Nitrite NEG (NEG) Urine Bilirubin NEG (NEG) Urine Urobilinogen LESS THAN 2.0 MG/DL (LESS Urine Leukocyte Esterase NEG (NEG) Urine RBC LESS THAN 1 /hpf (0-3) Urine WBC 1 /hpf (0-5) Urine Squamous Epithelial Cells <1 /hpf (0-5) Urine Bacteria OCC /hpf (NONE) Microscopic Urinalysis Comment CATH-CULTURE IND Carcinoembryonic Antigen 4.2 NG/ML (0.2-5.0) CA 19-9 Antigen 46.3 U/ML (0.0-35.0) Test 02/23/17 05:30 02/23/17 10:30 02/23/17 21:00 02/24/17 05:30 White Blood Count 6.7 TH/MM3 (4.0-11.0) 6.4 TH/MM3 (4.0-11.0) 6.7 TH/MM3 (4.0-11.0) Red Blood Count 2.35 MIL/MM3 (4.00-5.30) 2.23 MIL/MM3 (4.00-5.30) 2.71 MIL/MM3 (4.00-5.30) Hemoglobin 7.0 GM/DL (11.6-15.3) 6.5 GM/DL (11.6-15.3) 8.5 GM/DL (11.6-15.3) 8.5 GM/DL (11.6-15.3) Hematocrit 20.9 % (35.0-46.0) 19.2 % (35.0-46.0) 25.1 % (35.0-46.0) 24.3 % (35.0-46.0) Mean Corpuscular Volume 89.3 FL (80.0-100.0) 86.1 FL (80.0-100.0) 90.0 FL (80.0-100.0) Mean Corpuscular Hemoglobin 29.9 PG (27.0-34.0) 28.9 PG (27.0-34.0) 31.4 PG (27.0-34.0) Mean Corpuscular Hemoglobin Concent 33.5 % (32.0-36.0) 33.5 % (32.0-36.0) 34.9 % (32.0-36.0) Red Cell Distribution Width 16.6 % (11.6-17.2) 16.9 % (11.6-17.2) 16.8 % (11.6-17.2) Platelet Count 123 TH/MM3 (150-450) 124 TH/MM3 (150-450) 134 TH/MM3 (150-450) Mean Platelet Volume 8.5 FL (7.0-11.0) 8.3 FL (7.0-11.0) 8.2 FL (7.0-11.0) Neutrophils (%) (Auto) 88.5 % (16.0-70.0) 86.8 % (16.0-70.0) Lymphocytes (%) (Auto) 5.7 % (9.0-44.0) 6.3 % (9.0-44.0) Monocytes (%) (Auto) 4.8 % (0.0-8.0) 5.2 % (0.0-8.0) Eosinophils (%) (Auto) 0.8 % (0.0-4.0) 0.9 % (0.0-4.0) Basophils (%) (Auto) 0.2 % (0.0-2.0) 0.8 % (0.0-2.0) Neutrophils # (Auto) 6.0 TH/MM3 (1.8-7.7) 5.6 TH/MM3 (1.8-7.7) Lymphocytes # (Auto) 0.4 TH/MM3 (1.0-4.8) 0.4 TH/MM3 (1.0-4.8) Monocytes # (Auto) 0.3 TH/MM3 (0-0.9) 0.3 TH/MM3 (0-0.9) Eosinophils # (Auto) 0.1 TH/MM3 (0-0.4) 0.1 TH/MM3 (0-0.4) Basophils # (Auto) 0.0 TH/MM3 (0-0.2) 0.0 TH/MM3 (0-0.2) CBC Comment DIFF FINAL DIFF FINAL Differential Comment Blood Urea Nitrogen 38 MG/DL (7-18) 37 MG/DL (7-18) Creatinine 0.52 MG/DL (0.50-1.00) 0.48 MG/DL (0.50-1.00) Random Glucose 140 MG/DL (74-106) 152 MG/DL (74-106) Total Protein 4.6 GM/DL (6.4-8.2) 4.3 GM/DL (6.4-8.2) Albumin 2.2 GM/DL (3.4-5.0) Calcium Level 7.7 MG/DL (8.5-10.1) 7.4 MG/DL (8.5-10.1) Phosphorus Level 1.4 MG/DL (2.5-4.9) Magnesium Level 2.1 MG/DL (1.5-2.5) Alkaline Phosphatase 81 U/L (45-117) Aspartate Amino Transf (AST/SGOT) 15 U/L (15-37) Alanine Aminotransferase (ALT/SGPT) 16 U/L (10-53) Total Bilirubin 0.5 MG/DL (0.2-1.0) Sodium Level 142 MEQ/L (136-145) 144 MEQ/L (136-145) Potassium Level 3.7 MEQ/L (3.5-5.1) 3.5 MEQ/L (3.5-5.1) Chloride Level 111 MEQ/L (98-107) 115 MEQ/L (98-107) Carbon Dioxide Level 24.0 MEQ/L (21.0-32.0) 21.7 MEQ/L (21.0-32.0) Anion Gap 7 MEQ/L (5-15) 7 MEQ/L (5-15) Estimat Glomerular Filtration Rate 116 ML/MIN (>89) 127 ML/MIN (>89) Protein Corrected Calcium 9.0 MG/DL (8.5-10.1) Result Diagram: 02/24/17 0530 02/24/1730 Microbiology Microbiology Date/Time Source Procedure Growth Status 02/22/17 08:32 Blood Peripheral Aerobic Blood Culture - Preliminary NO GROWTH IN 2 DAYS Resulted 02/22/17 08:32 Blood Peripheral Anaerobic Blood Culture - Preliminary NO GROWTH IN 2 DAYS Resulted 02/22/17 08:12 Blood Peripheral Aerobic Blood Culture - Preliminary NO GROWTH IN 2 DAYS Resulted 02/22/17 08:12 Blood Peripheral Anaerobic Blood Culture - Preliminary NO GROWTH IN 2 DAYS Resulted 02/22/17 08:40 Urine Catheterized Urine Urine Culture - Final Enterococcus Faecium Vre Complete Imaging Last Impressions Abdomen/Pelvis CT 02/23/17 0000 Signed Impressions: Service Date/Time: Thursday, February 23, 2017 22:14 - CONCLUSION: 1. Small amount of ascites, similar to the prior study. 2. Prominent diffuse superficial soft tissue edema. 3. Gastrostomy tube in place. 4. Cholelithiasis. Gallbladder collapsed. 5. Bilateral lower lobe atelectasis/consolidation and bilateral pleural effusions. 6. No evidence of the previously noted possible rectal mass. There is intraluminal contrast in this region. Mac Werner MD Chest X-Ray 02/22/17 0000 Signed Impressions: Service Date/Time: Wednesday, February 22, 2017 08:10 - CONCLUSION: Decreasing parenchymal changes left base. Tracheostomy tube in good position. Gregorio Jacob MD FACR Gastrostomy Tube Placement 02/05/17 0000 Signed Impressions: Service Date/Time: January 16:47 - CONCLUSION: Uncomplicated gastrostomy tube placement as above. Jorje Josue MD Lower Extremity Ultrasound 02/04/17 0000 Signed Impressions: Service Date/Time: Saturday, February 04, 2017 21:13 - CONCLUSION: 1. No evidence of deep venous thrombosis within the lower extremities. 2. Popliteal cyst on the left measuring 2.2 x 1.5 x 0.9 cm. Julian Mcmahan MD Head CT 02/04/17 0000 Signed Impressions: Service Date/Time: Saturday, February 04, 2017 17:50 - CONCLUSION: 1. No acute intracranial abnormality. 2. Tiny fluid level within the right maxillary sinus. Julian Mcmahan MD CT Angiography 02/04/17 0000 Signed Impressions: Service Date/Time: Saturday, February 04, 2017 17:54 - CONCLUSION: 1. No evidence of pulmonary embolism. 2. Bibasilar alveolar consolidations as well as scattered perihilar patchy opacities suggestive of probable pneumonia. Clinical correlation is recommended. 3. 1.7 cm right thyroid nodule. Julian Mcmahan MD Abdomen X-Ray 02/04/17 0000 Signed Impressions: Service Date/Time: January 05:52 - CONCLUSION: Interval placement of nasogastric tube with the tip in the left mainstem bronchus. Caesar Ramos MD Procedures 02/05/17 PEG tube placement 02/10/17- Intubated 02/12/17- Extubated 02/12/17-Reintubated 02/16/17 trach placement . Assessment and Plan Disease Oriented Problem List: (1) Sepsis (2) Hyponatremia (3) Pneumonia (4) Hypoxia Symptom Scale: (1) Shortness of breath 0-10 Scale: Unable to quantify Comment: Multifactorial. Patient has had multiple hospitalizations for shortness of breath/pneumonia. Mild respiratory distress. Reintubated. . (2) Debility 0-10 Scale: Unable to quantify Comment: Progressive. Patient has had prolonged hospitalization in 4 different facilities since November 2016. Since November she has been hospitalized approximately 5 times. Patient was discharged recently into a long-term facility. Patient has also lost weight significantly. Has not been able to participate in physical therapy due to her illness. Patient remains at high risk for deterioration if she continues to have shortness of breath, which will limit her participation in physical therapy. PT was consulted- recommending PT at rehab. . Pertinent Non-Medical Issues Psychosocial:Patient was born and raised in [place]. Patient still lives in [place] but came to [place] with her granddaughter to visit in late November, after being hospitalized in [place] and [place] for approximately 4 weeks. Patient was twice and once and her last a few years ago . She has 1 adult daughter, one grandchild and 2 great grandchildren. Patients is level of education is high school. 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 Patient has been living alone independently in [place] and helps take care of her elderly mother was 95 years old. Spiritual:[employer] [place]- have support from local confucianist-Does not want visit from psychological stress evaluator services Legal:Patient appears to be regaining capacity, recommend shared decision making as she is unable to speak due to trach. Patient has designated her granddaughter Connie Cotton as her primary healthcare surrogate and granddaughter`s Frdedy Cotton as alternate HCS. Ethical issues impacting care: None identified at this time. Important Contacts Granddaughter- primary HCS- Connie Cotton- [phone] Alternate HCS- Freddy Cotton [phone] Daughter- Flor Bennett [phone] . Prognosis Mrs Knapp is a 71 years old female with a past medical history of colon cancer, esophageal strictures, pneumonia and anxiety. Patient has had multiple hospitalizations for persistent pneumonia, hyponatremia and dysphagia. She was recently discharged from [facility] to a long-term facility. Patient [place] via EMS [place] [facility] [place] after she was found slumped over, with cyanosis of limbs and in respiratory distress at [facility]. Patient`s O2 saturation were in the 80s. Now s/p trach and PEG, on CPAP alternating with t- piece. New rectal mass. Given ongoing comorbidities and recent multiple hospitalizations, patient remains at high risk for complications, deterioration and decline. . Code Status: Full Code Plan * Legal decision maker: Patient appears to be regaining capacity, recommend shared decision making as she is unable to speak due to trach. Patient has designated her granddaughter Connie Cotton as her primary healthcare surrogate and granddaughter`s Freddy Cotton as alternate HCS. * FULL CODE. * Goals remain aggressive. * SYMPTOMS: Shortness of breath:Multifactorial. Patient has had multiple hospitalizations for shortness of breath/pneumonia. S/P trach. On oxygen via t- piece during day and CPAP at night. Weakness: due to prolonged hospitalization and bedbound status. Continue PT. Consider sitting patient up in stretcher chair. * Palliative care will continue to follow the patient during hospital course as condition evolves, to assist patient/decision-maker with understanding of their medical conditions, weighing benefits/burdens of treatment options, for clarification of goals of treatment. Additionally will assist with any symptoms of palliative concern. . Attestation To help prompt me to consider important information that might be impacting today's encounter and assessment, information from prior notes written by myself or my colleagues may have been "brought forward" into today's note. My signature on this note, however, is an attestation that I personally performed the exam, history, and/or decision-making noted today, and, unless otherwise indicated, the interactions with patient, family, and staff as well as the review of records all occurred today. I also attest that the listed assessment and stated plan reflect my best clinical judgment today based on the combination of historical information, prior notes, and today's exam/ interactions. When time spent is documented, it refers only to time spent today by the signer, or if indicated, combined time spent today by collaborating physician/nurse practitioner. María Elias Feb 24, 2017 15:10
--- NOTE | 2017-02-24 15:12 | HHI.CCPN ---
Subjective Remarks/Hospital Course 02/04: 71-year-old female with a medical history significant for colon cancer in 2003 for which she underwent partial colon resection and chemotherapy, esophageal stricture with significant weight loss due to poor by mouth intake for which she was hospitalized in [place] in November 2016 for 2 weeks treated for pneumonia and subsequently evaluated for dysphagia and was found to have a sufficient stricture for which she was transferred to [facility] in [place] and underwent esophageal dilatation and was subsequently discharged 2 weeks later on a pured diet. Patient moved to [place] with her granddaughter and a few beats VAC was admitted to [facility] for worsening shortness of breath and was diagnosed with a pneumonia, hyponatremia. She was treated with antibiotics and subsequently discharged home however the following day had to be readmitted at [facility] for unresolved shortness of breath where she was hospitalized for a week and subsequently discharged to longterm 3 days prior to this admission. Patient's by mouth intake has been poor since her discharge 3 days back according to her granddaughter as the pured diet at the longterm is to take. Patient was found to have altered mental status today and was found slumped to one side with poor respirations. EMS was called and patient was noted to have O2 sats in the 60s. She was transported to the emergency room where she was placed on BiPAP for respiratory distress with hypoxic respiratory failure. She was also noted to be hypertensive on arrival with systolic blood pressure in the 200s. Patient was also found to have a sodium of 118. I was contacted by ER physician and accepted patient for admission to the ICU. When I evaluated the patient in the ER she was on BiPAP with full facemask. History was obtained by discussion with patient's granddaughter was at the bedside. Patient was much more awake at this time and trying to communicate however in view of BiPAP requirement was difficult to communicate with. She denied any chest pain at the time. Patient has chronic diarrhea since her colon surgery in 2003. Per the granddaughter she was doing well till about 3 months ago when she started having significant weight loss and poor by mouth intake possibly related to esophageal stricture and the fact that she was taking care of her sick family member at home. She has been advised a PEG tube per the granddaughter because of her poor nutritional status and poor by mouth intake. She has had problems with hyponatremia off and on for a while. Patient's granddaughter is very concerned about her poor nutritional status. 02/05: Tolerating nasal cannula. Underwent PEG tube placement by IR today. Sodium 122. 02/06 No events overnight. s/p PEG tube placement yesterday. Sodium level 131 this morning 02/07 No events overnight. On 50% VM with good sats. 02/08 No events overnight. Afebrile . Off BIPAP. 02/09 Patient is on BIPAP 02/03 with 45% FIO2> Afebrile. 02/10 Patient was intubated early this morning for acute hypercapnic resp acidosis. Afebrile. 02/11 No events overnight. Patient remains intubated. Afebrile. 02/12 Patient remains intubated and on Precedex drip for sedation. Afebrile. 02/13 Patient was extubated yesterday and reintubated late afternoon for acute resp acidosis. afebrile. 02/14: remains intubated. appears very weak. long conversation with granddaughter and medical decision-maker at bedside. likely will require tracheostomy given repeat re-intubations and chronic debilitation. granddaughter requests we wait until thursday or thursday, and requests it be done in the OR and not at bedside. 02/15: wake and more alert. however, only tolerated 10 minutes of CPAP before becoming tachypneic and failing. gen surg consulted for trach: family requests OR trach due to concerns over infection risk at bedside. I counseled patient's family that there was no increased risk of infection, and the trachea is inherently an unsterile environment with endotracheal tube in place, but family insists on OR trach. hypernatremia slightly worse despite increasing free water. 02/16: still awake and alert. failed CPAP again today. plan for trach today. 02/17: s/p trach yesterday. doing well. still failing CPAP for weakness and tachypnea. needs LTAC. hyponatremia and hypokalemia: kcl replacement and holding free water. 02/18: sodium improving. doing well. needs aggressive PT. 02/19 No events overnight. On ventilator via trach. Afebrile. 02/20 No events overnight. For Colonoscopy today. Afebrile. 02/21 Patient refused colonoscopy yesterday. Tolerated TP's during day and placed on CPAP overnight. Afebrile. 02/22 Patient went into Afib with RVR overnight given Lopressor 5mg IV x1 and Mag sulfate. T:103 this morning 02/23: Remains on mechanical ventilation via tracheostomy. On tube feeds via PEG. No melena or rectal bleeding. Awaiting repeat CBC for hemoglobin 7 on a.m. labs 02/24: Awake and alert. On mechanical ventilation via tracheostomy. Transfuse 1 unit PRBCs yesterday. Hemoglobin 8.2 this morning Objective Vital Signs Date Time Temp Pulse Resp B/P (MAP) Pulse Ox O2 Delivery O2 Flow Rate FiO2 02/24/17 14:19 100 35 02/24/17 14:00 73 02/24/17 12:00 98.9 19 117/57 (77) 02/21/17 20:32 T-piece 02/21/17 08:42 6.00 Intake and Output 02/24/17 02/24/17 02/25/17 08:00 16:00 00:00 Intake Total 607 ml Output Total 650 ml Balance -43 ml Result Diagram: 02/24/17 0530 02/24/17 0530 Other Results Microbiology Date/Time Source Procedure Growth Status 02/22/17 08:40 Urine Catheterized Urine Urine Culture - Final Enterococcus Faecium Vre Complete Imaging Last Impressions Chest X-Ray 02/19/17 0000 Signed Impressions: Service Date/Time: January 08:52 - CONCLUSION: 1. Interval improvement in bilateral lower lobe infiltrates and improving left sided effusion as detailed above. 2. Interval removal of the endotracheal tube with placement of a tracheostomy. Tip is appropriately positioned at the clavicular head. Nura Cook MD Abdomen/Pelvis CT 02/14/17 0000 Signed Impressions: Service Date/Time: Tuesday, February 14, 2017 23:14 - CONCLUSION: 1. Nonspecific small ascites with bilateral pleural effusions and body wall edema/anasarca. No abscess demonstrated. 2. Possible mass of the lower rectum and please correlate clinically. 3. Gastric feeding tube with tip in the lower body. 4. Sigmoid colon diverticulosis without perceptible acute inflammatory changes. 5. Cholelithiasis without evidence of cholecystitis or biliary obstruction. Phan Lomas MD Gastrostomy Tube Placement 02/05/17 0000 Signed Impressions: Service Date/Time: January 16:47 - CONCLUSION: Uncomplicated gastrostomy tube placement as above. Jorje Josue MD Lower Extremity Ultrasound 02/04/17 0000 Signed Impressions: Service Date/Time: Saturday, February 04, 2017 21:13 - CONCLUSION: 1. No evidence of deep venous thrombosis within the lower extremities. 2. Popliteal cyst on the left measuring 2.2 x 1.5 x 0.9 cm. Julian Mcmahan MD Head CT 02/04/17 0000 Signed Impressions: Service Date/Time: Saturday, February 04, 2017 17:50 - CONCLUSION: 1. No acute intracranial abnormality. 2. Tiny fluid level within the right maxillary sinus. Julian Mcmahan MD CT Angiography 02/04/17 0000 Signed Impressions: Service Date/Time: Saturday, February 04, 2017 17:54 - CONCLUSION: 1. No evidence of pulmonary embolism. 2. Bibasilar alveolar consolidations as well as scattered perihilar patchy opacities suggestive of probable pneumonia. Clinical correlation is recommended. 3. 1.7 cm right thyroid nodule. Julian Mcmahan MD Abdomen X-Ray 02/04/17 Signed Impressions: Service Date/Time: January 05:52 - CONCLUSION: Interval placement of nasogastric tube with the tip in the left mainstem bronchus. Caesar Ramos MD Objective Remarks GENERAL: frail elderly female, lying in bed, trach in place SKIN: Warm and dry. HEAD: Normocephalic. EYES: No scleral icterus. No injection or drainage. NECK: trachea midline. No JVD. trach in place. CARDIOVASCULAR:Tachycardic, nl S1, S2 RESPIRATORY: On mechanical ventilation via tracheostomy, good air entry bilaterally, scattered rhonchi, no wheezing GASTROINTESTINAL: Abdomen soft, non-tender, nondistended. no guarding. MUSCULOSKELETAL: No cyanosis, or edema. Neuro: Awake alert oriented 3, follows commands. moves all extremities. A/P Assessment and Plan Assessment: 71yF with at least a 3 month chronic course of failure to thrive and weight loss, esophageal stricture, and now recurrent hypoxic and hypercarbic respiratory failure requiring multiple intubations. She needs aggressive pulmonary rehab in an LTAC type facility. Plan: Neuro: Acute metabolic encephalopathy Anxiety Insomnia - Monitor neuro status. On no sedation family have asked that we avoid fentanyl, versed, and propofol because in their past experience, she has reacted poorly to these. they request Precedex only. Xanax to 0.5mg po q6h prn melatonin 5mg po qHS for sleep CV: New onset Afib with RVR Monitor HR and BP keep MAP>65mmHg Check EKG, Ck/trop, 2D echo to eval LV function Pulm: Recurrent acute hypercarbic and hypoxic respiratory failure likely secondary to deconditioning and weakness. likely also large component of silent or overt aspiration and inability to control secretions. Continue with vent support keep sat >92% On PRVC 16, 450, 1.0, 5, 40% Bronchodilators. ICU vent bundle. CT chest with no evidence of PE and shows bibasilar infiltrates concerning for recurrent aspiration pneumonia Pulm is following. continue daily SBTs. needs LTAC. s/p trach 02/[address] Chaudhry prednisone taper. GI/liver: Failure to thrive Hypernatremia- resolved. Free water deficit- resolved. Chronic diarrhea History of esophageal stricture status post recent esophageal dilation History of colon cancer Acute protein calorie malnutrition - severe hyponatremia- improving. s/p PEG tube placement by IR 02/05 On Tube feeds(Jevity 1.5 @ 40ml/hr) GI is following for ? rectal mass on CT abdomen. Patient refused colonoscopy. repeat CT on 02/23 did not show rectal mass. Check tumor markers- CEA level and CA19-9. Renal/: Acute intravascular volume overload- improving. Metabolic alkalosis Monitor renal function, I/O's, electrolytes replacement per protocol. ID: Healthcare Associated Pneumonia- s/p full course abx ( Cefepime, Azithromycin). On Aztreonam, vanc, micafungin per ID F/u panculture(( Blood, sputum, UA with cx if indicated) for worsening leukocytosis and new onset fever -C-diff PCR is negative on 02/21 and 02/10 ID following. Endocrine: Hyperglycemia of Critical Illness SSI for glycemic control Heme-onc: Anemia secondary to chronic disease Monitor CBC, transfuse to keep Hgb greater than 8gm% Prophylaxis: Pepcid/SCDs. heparin SQ( H/H stable and no signs of bleeding) Palliative care is following Awaiting placement in LTAC facility Level 3 Carl Nieto MD Feb 24, 2017 15:12
[2017-02-24] MEDS: SODIUM CHLOR 0.9% 1000 ML INJ 1,000 ML IV SCH ×2 (15:59→22:00)
[2017-02-24] MEDS: RESP: ALBUTEROL 2.5 MG/IPRATROPIUM 0.5 MG NEB (PRN) INH (16:24)
[2017-02-24] MEDS: DAPTOmycin INJ 300 MG in SODIUM CHLORIDE 0.9% INJ 100 ML IV SCH (16:36)
--- NOTE | 2017-02-24 17:14 | HHI.PR ---
Subjective Remarks 71 YOWF with VDRF,Bibasilar infilt Sedated with Fentanyl BP borderline gets anxious On Trach collar, comfortable Had PRBC yesterday Objective Vital Signs Vital Signs Date Time Temp Pulse Resp B/P (MAP) Pulse Ox O2 Delivery O2 Flow Rate FiO2 02/24/17 16:00 71 02/24/17 16:00 35 02/24/17 14:19 100 35 02/24/17 14:00 73 02/24/17 12:42 100 35 02/24/17 12:00 98.9 73 19 117/57 (77) 100 02/24/17 12:00 73 02/24/17 12:00 35 02/24/17 10:00 72 02/24/17 09:02 100 35 02/24/17 08:00 35 02/24/17 08:00 98.9 64 16 114/56 (75) 100 02/24/17 08:00 64 02/24/17 06:00 67 02/24/17 04:06 100 35 02/24/17 04:00 35 02/24/17 04:00 67 02/24/17 04:00 98.4 67 17 104/58 (73) 100 02/24/17 02:00 67 02/24/17 00:02 100 35 02/24/17 00:00 98.4 71 18 94/50 (65) 100 02/24/17 00:00 71 02/24/17 00:00 35 02/23/17 22:10 100 100 02/23/17 22:00 122 02/23/17 20:28 100 35 02/23/17 20:00 107 02/23/17 20:00 99.2 70 18 107/54 (71) 100 02/23/17 20:00 35 02/23/17 18:00 73 02/23/17 17:54 100 35 I/O 02/23/17 02/23/17 02/23/17 02/24/17 02/24/17 02/24/17 07:00 15:00 23:00 07:00 15:00 23:00 Intake Total 925 ml 2552 ml 807 ml Output Total 1000 ml 650 ml Balance 925 ml 1552 ml 157 ml IV Total 400 ml 1000 ml 400 ml Tube Feeding 475 ml 482 ml 287 ml Packed Cells 900 ml Blood Product IV Normal Saline Flush 50 ml Other 50 ml 120 ml 120 ml Output Urine Total 1000 ml 650 ml # Bowel Movements 0 4 1 Result Diagram: 02/24/1752902/24/17529 Objective Remarks GENERAL: Frail elderly female, on Vent SKIN: Warm and dry. HEAD: Normocephalic. EYES: No scleral icterus. No injection or drainage. NECK: Supple, trachea midline. No JVD or lymphadenopathy. CARDIOVASCULAR: Regular rate and rhythm without murmurs, gallops, or rubs. RESPIRATORY: Breath sounds equal bilaterally. No accessory muscle use. GASTROINTESTINAL: Abdomen soft, non-tender, nondistended. MUSCULOSKELETAL: No cyanosis, or edema. BACK: Nontender without obvious deformity. No CVA tenderness. A/P Assessment and Plan VDRF, s/p Trach 02/16 Bibasilar infilterates Hypotension Anxiety H/O Ca colon Weight loss PLAN: Cont Abx Vanco, Cefepime and Zithro IV Solumedrol Xanax 0.5 mg q 6 hrs Trach care Cont Trach collar Tube feeding Yusef Hernandez MD Feb 24, 2017 17:13
--- NOTE | 2017-02-24 20:31 | ECHRPT ---
Indication: a fib CONCLUSIONS Normal left ventricular size. The left ventricular systolic function is normal with an estimated ejection fraction in the range of 55-60%. Mild mitral valve regurgitation. There is mild tricuspid valve regurgitation. The estimated pulmonary arterial pressure is 35 mmHg. BP: / HR: Rhythm: MEASUREMENTS (Male / Female) Normal Values Technical Quality:Good 2D ECHO LV Diastolic Diameter PLAX 3.5 cm 4.2 - 5.9 / 3.9 - 5.3 cm LV Systolic Diameter PLAX 2.5 cm IVS Diastolic Thickness 1.1 cm 0.6 - 1.0 / 0.6 - 0.9 cm LVPW Diastolic Thickness 0.8 cm 0.6 - 1.0 / 0.6 - 0.9 cm LV Relative Wall Thickness 0.5 RV Internal Dim ED PLAX 2.1 cm M-MODE Aortic Root Diameter MM 2.9 cm LA Systolic Diameter MM 2.6 cm LA Ao Ratio MM 0.9 AV Cusp Separation MM 1.7 cm DOPPLER Mitral E Point Velocity 87.9 cm/s Mitral A Point Velocity 101.0 cm/s Mitral E to A Ratio 0.9 LV E' Lateral Velocity 6.9 cm/s Mitral E to LV E' Lateral Ratio 12.7 LV E' Septal Velocity 8.1 cm/s Mitral E to LV E' Septal Ratio 10.9 TR Peak Velocity 252.0 cm/s TR Peak Gradient 25.4 mmHg Right Atrial Pressure 10.0 mmHg Pulmonary Artery Systolic Pressu 35.4 mmHg Right Ventricular Systolic Press 35.4 mmHg FINDINGS LEFT VENTRICLE Normal left ventricular size. The left ventricular systolic function is normal with an estimated ejection fraction in the range of 55-60%. RIGHT VENTRICLE Normal right ventricular size and systolic function. LEFT ATRIUM The left atrial size is normal. RIGHT ATRIUM The right atrial size is normal. ATRIAL SEPTUM Normal atrial septal thickness without atrial level shunting by limited color doppler interrogation. AORTA The aortic root and proximal ascending aorta are normal in size on limited imaging. MITRAL VALVE Structurally normal mitral valve. Mild mitral valve regurgitation. AORTIC VALVE Trileaflet aortic valve. No aortic valve regurgitation. No aortic valve stenosis. TRICUSPID VALVE Structurally normal tricuspid valve. There is mild tricuspid valve regurgitation. The estimated pulmonary arterial pressure is 35.4 mmHg. PULMONARY VALVE No pulmonary valve regurgitation or stenosis. VESSELS The inferior vena cava is normal in size. PERICARDIUM No pericardial effusion. Timo Rosenberg MD, FACC (Electronically Signed) Final Date:24 February 2017 20:31
[2017-02-24] MEDS: MICAFUNGIN INJ 150 MG in SODIUM CHLORIDE 0.9% INJ 100 ML IV SCH (21:39)
[2017-02-24] MEDS: MELATONIN 5 MG TAB PO SCH (21:40)
[2017-02-25] VITALS (18 sets, daily range): BP systolic 120–154; BP diastolic 57–78; PULSE 71–87; RESP 18–31; TEMP 97.7–99.7; O2SAT 98–100
[2017-02-25] MEDS: ALPRAZolam 0.5 MG TAB PO PRN ×4 (00:46→21:03)
[2017-02-25] MEDS: CHLORHEXIDINE GLUCONATE 2 % 1 PACK (2 CLOTHS) TOP SCH (03:00)
[2017-02-25] MEDS: SODIUM CHLOR 0.9% 1000 ML INJ 1,000 ML IV SCH ×2 (03:40→15:40)
[2017-02-25] MEDS: metroNIDAZOLE 500 MG INJ 100 ML IV SCH ×3 (04:07→21:03)
[2017-02-25] MEDS: INSULIN NovoLIN REGULAR SUPPLEMENTAL SCALE SQ SCH ×4 (04:10→21:05)
[2017-02-25] MEDS: FAMOTIDINE 20 MG TAB NG SCH (08:01)
[2017-02-25] MEDS: SODIUM CHLORIDE 0.9% FLUSH 10 ML FLUSH IV FLUSH SCH ×2 (08:01→21:04)
[2017-02-25] MEDS: AZTREONAM INJ 1,000 MG in SODIUM CHLORIDE 0.9% INJ 100 ML IV SCH ×3 (08:01→23:49)
[2017-02-25] MEDS: CHLORHEXIDINE 0.12% (ORAL KIT) 15 ML CUP MT SCH ×2 (08:01→21:03)
[2017-02-25] MEDS: HEPARIN SODIUM - SQ 10,000 UNITS/ML VIAL SQ SCH ×2 (08:02→21:04)
[2017-02-25] MEDS ORDERED: PHARMACY ORDERED LAB ONE (08:45)
--- NOTE | 2017-02-25 10:43 | HHI.CCPN ---
Subjective Remarks/Hospital Course 02/04: 71-year-old female with a medical history significant for colon cancer in 2003 for which she underwent partial colon resection and chemotherapy, esophageal stricture with significant weight loss due to poor by mouth intake for which she was hospitalized in [place] in November 2016 for 2 weeks treated for pneumonia and subsequently evaluated for dysphagia and was found to have a sufficient stricture for which she was transferred to [facility] in [place] and underwent esophageal dilatation and was subsequently discharged 2 weeks later on a pured diet. Patient moved to [place] with her granddaughter and a few beats VAC was admitted to [facility] for worsening shortness of breath and was diagnosed with a pneumonia, hyponatremia. She was treated with antibiotics and subsequently discharged home however the following day had to be readmitted at [facility] for unresolved shortness of breath where she was hospitalized for a week and subsequently discharged to [facility] 3 days prior to this admission. Patient's by mouth intake has been poor since her discharge 3 days back according to her granddaughter as the pured diet at the [facility] is to take. Patient was found to have altered mental status today and was found slumped to one side with poor respirations. EMS was called and patient was noted to have O2 sats in the 60s. She was transported to the emergency room where she was placed on BiPAP for respiratory distress with hypoxic respiratory failure. She was also noted to be hypertensive on arrival with systolic blood pressure in the 200s. Patient was also found to have a sodium of 118. I was contacted by ER physician and accepted patient for admission to the ICU. When I evaluated the patient in the ER she was on BiPAP with full facemask. History was obtained by discussion with patient's granddaughter was at the bedside. Patient was much more awake at this time and trying to communicate however in view of BiPAP requirement was difficult to communicate with. She denied any chest pain at the time. Patient has chronic diarrhea since her colon surgery in 2003. Per the granddaughter she was doing well till about 3 months ago when she started having significant weight loss and poor by mouth intake possibly related to esophageal stricture and the fact that she was taking care of her sick family member at home. She has been advised a PEG tube per the granddaughter because of her poor nutritional status and poor by mouth intake. She has had problems with hyponatremia off and on for a while. Patient's granddaughter is very concerned about her poor nutritional status. 02/05: Tolerating nasal cannula. Underwent PEG tube placement by IR today. Sodium 122. 02/06 No events overnight. s/p PEG tube placement yesterday. Sodium level 131 this morning 02/07 No events overnight. On 50% VM with good sats. 02/08 No events overnight. Afebrile . Off BIPAP. 02/09 Patient is on BIPAP 02/03 with 45% FIO2> Afebrile. 02/10 Patient was intubated early this morning for acute hypercapnic resp acidosis. Afebrile. 02/11 No events overnight. Patient remains intubated. Afebrile. 02/12 Patient remains intubated and on Precedex drip for sedation. Afebrile. 02/13 Patient was extubated yesterday and reintubated late afternoon for acute resp acidosis. afebrile. 02/14: remains intubated. appears very weak. long conversation with granddaughter and medical decision-maker at bedside. likely will require tracheostomy given repeat re-intubations and chronic debilitation. granddaughter requests we wait until thursday or thursday, and requests it be done in the OR and not at bedside. 02/15: wake and more alert. however, only tolerated 10 minutes of CPAP before becoming tachypneic and failing. gen surg consulted for trach: family requests OR trach due to concerns over infection risk at bedside. I counseled patient's family that there was no increased risk of infection, and the trachea is inherently an unsterile environment with endotracheal tube in place, but family insists on OR trach. hypernatremia slightly worse despite increasing free water. 02/16: still awake and alert. failed CPAP again today. plan for trach today. 02/17: s/p trach yesterday. doing well. still failing CPAP for weakness and tachypnea. needs LTAC. hyponatremia and hypokalemia: kcl replacement and holding free water. 02/18: sodium improving. doing well. needs aggressive PT. 02/19 No events overnight. On ventilator via trach. Afebrile. 02/20 No events overnight. For Colonoscopy today. Afebrile. 02/21 Patient refused colonoscopy yesterday. Tolerated TP's during day and placed on CPAP overnight. Afebrile. 02/22 Patient went into Afib with RVR overnight given Lopressor 5mg IV x1 and Mag sulfate. T:103 this morning 02/23: Remains on mechanical ventilation via tracheostomy. On tube feeds via PEG. No melena or rectal bleeding. Awaiting repeat CBC for hemoglobin 7 on a.m. labs 02/24: Awake and alert. On mechanical ventilation via tracheostomy. Transfuse 1 unit PRBCs yesterday. Hemoglobin 8.2 this morning. 02/25: Awake and alert. On C Pap trial via tracheostomy. 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 Objective Vital Signs Date Time Temp Pulse Resp B/P (MAP) Pulse Ox O2 Delivery O2 Flow Rate FiO2 02/25/17 07:28 100 35 02/25/17 06:00 77 02/25/17 04:00 97.7 19 120/57 (78) 02/24/17 16:45 T-piece 02/21/17 08:42 6.00 Intake and Output 02/25/17 02/25/17 02/26/17 08:00 16:00 00:00 Intake Total 1185 ml Output Total 600 ml Balance 585 ml Result Diagram: 02/24/17 0530 02/24/17 0530 Imaging Last Impressions Chest X-Ray 02/19/17 0000 Signed Impressions: Service Date/Time: January 08:52 - CONCLUSION: 1. Interval improvement in bilateral lower lobe infiltrates and improving left sided effusion as detailed above. 2. Interval removal of the endotracheal tube with placement of a tracheostomy. Tip is appropriately positioned at the clavicular head. Nura Cook MD Abdomen/Pelvis CT 02/14/17 0000 Signed Impressions: Service Date/Time: Tuesday, February 14, 2017 23:14 - CONCLUSION: 1. Nonspecific small ascites with bilateral pleural effusions and body wall edema/anasarca. No abscess demonstrated. 2. Possible mass of the lower rectum and please correlate clinically. 3. Gastric feeding tube with tip in the lower body. 4. Sigmoid colon diverticulosis without perceptible acute inflammatory changes. 5. Cholelithiasis without evidence of cholecystitis or biliary obstruction. Phan Lomas MD Gastrostomy Tube Placement 02/05/17 0000 Signed Impressions: Service Date/Time: January 16:47 - CONCLUSION: Uncomplicated gastrostomy tube placement as above. Jorje Josue MD Lower Extremity Ultrasound 02/04/17 0000 Signed Impressions: Service Date/Time: Saturday, February 04, 2017 21:13 - CONCLUSION: 1. No evidence of deep venous thrombosis within the lower extremities. 2. Popliteal cyst on the left measuring 2.2 x 1.5 x 0.9 cm. Julian Mcmahan MD Head CT 02/04/17 0000 Signed Impressions: Service Date/Time: Saturday, February 04, 2017 17:50 - CONCLUSION: 1. No acute intracranial abnormality. 2. Tiny fluid level within the right maxillary sinus. Julian Mcmahan MD CT Angiography 02/04/17 0000 Signed Impressions: Service Date/Time: Saturday, February 04, 2017 17:54 - CONCLUSION: 1. No evidence of pulmonary embolism. 2. Bibasilar alveolar consolidations as well as scattered perihilar patchy opacities suggestive of probable pneumonia. Clinical correlation is recommended. 3. 1.7 cm right thyroid nodule. Julian Mcmahan MD Abdomen X-Ray 02/04/17 Signed Impressions: Service Date/Time: January 05:52 - CONCLUSION: Interval placement of nasogastric tube with the tip in the left mainstem bronchus. Caesar Ramos MD Objective Remarks GENERAL: frail elderly female, lying in bed, trach in place SKIN: Warm and dry. HEAD: Normocephalic. EYES: No scleral icterus. No injection or drainage. NECK: trachea midline. No JVD. trach in place. CARDIOVASCULAR:Tachycardic, nl S1, S2 RESPIRATORY: On mechanical ventilation via tracheostomy, good air entry bilaterally, scattered rhonchi, no wheezing GASTROINTESTINAL: Abdomen soft, non-tender, nondistended. no guarding. MUSCULOSKELETAL: No cyanosis, or edema. Neuro: Awake alert oriented 3, follows commands. moves all extremities. A/P Assessment and Plan Assessment: 71yF with at least a 3 month chronic course of failure to thrive and weight loss, esophageal stricture, and now recurrent hypoxic and hypercarbic respiratory failure requiring multiple intubations. She needs aggressive pulmonary rehab in an LTAC type facility. Plan: Neuro: Acute metabolic encephalopathy Anxiety Insomnia - Monitor neuro status. On no sedation family have asked that we avoid fentanyl, versed, and propofol because in their past experience, she has reacted poorly to these. they request Precedex only. Xanax to 0.5mg po q6h prn melatonin 5mg po qHS for sleep CV: New onset Afib with RVR Monitor HR and BP keep MAP>65mmHg Check EKG, Ck/trop, 2D echo to eval LV function Pulm: Recurrent acute hypercarbic and hypoxic respiratory failure likely secondary to deconditioning and weakness. likely also large component of silent or overt aspiration and inability to control secretions. Continue with vent support keep sat >92% On PRVC 16, 450, 1.0, 5, 40% Bronchodilators. ICU vent bundle. CT chest with no evidence of PE and shows bibasilar infiltrates concerning for recurrent aspiration pneumonia Pulm is following. continue daily SBTs. needs LTAC. s/p trach 02/[address] Chaudhry prednisone taper. GI/liver: Failure to thrive Hypernatremia- resolved. Free water deficit- resolved. Chronic diarrhea History of esophageal stricture status post recent esophageal dilation History of colon cancer Acute protein calorie malnutrition - severe hyponatremia- improving. s/p PEG tube placement by IR 02/05 On Tube feeds(Jevity 1.5 @ 40ml/hr) GI is following for ? rectal mass on CT abdomen. Patient refused colonoscopy. repeat CT on 02/23 did not show rectal mass. Check tumor markers- CEA level and CA19-9. Renal/: Acute intravascular volume overload- improving. Metabolic alkalosis Monitor renal function, I/O's, electrolytes replacement per protocol. ID: Healthcare Associated Pneumonia- s/p full course abx ( Cefepime, Azithromycin). On Aztreonam, vanc, micafungin per ID. daptomycin started on 02/24 for VRE in urine. We will discuss stopping vancomycin with ID F/u panculture(( Blood, sputum, UA with cx if indicated) for worsening leukocytosis and new onset fever -C-diff PCR is negative on 02/21 and 02/10 ID following. Endocrine: Hyperglycemia of Critical Illness SSI for glycemic control Heme-onc: Anemia secondary to chronic disease Monitor CBC, transfuse to keep Hgb greater than 8gm% Prophylaxis: Pepcid/SCDs. heparin SQ( H/H stable and no signs of bleeding) Palliative care is following Awaiting placement in LTAC facility Level 3 Carl Nieto MD Feb 25, 2017 10:43
--- NOTE | 2017-02-25 12:48 | HHI.IDPN ---
Subjective Subjective Remarks ID COVERAGE Chart reviewed 71 yo female with h/o remote colon ca admitted one week ago with resp issues CTA showed no embolism, but had pneumonia She was on BIPAP for a week and got intubated today after eventually failing it Her sputum was purulent and has gram positive on Gstain Notes reviewed Temps ok C/O abdominal pain UC 02/22 with VRE, but UA ok Cabrera reinserted yesterday due to retention WBC normal CT A/P no intraabdominal pathology Has diarrhea On CPAP Antibiotics Azactam Flagyl Micafungin Cubicin Current Medications Medications (Trade) Dose Ordered Sig/Celine Route Start Time Stop Time Status Last Admin (NS Flush) 2 ml UNSCH PRN IV FLUSH 02/04/17 13:15 02/21/17 09:46 (NS Flush) 2 ml BID IV FLUSH 02/04/17 21:00 02/25/17 08:01 (Duoneb Neb) 1 ampule Q4HR NEB PRN INH 02/04/17 14:00 02/24/17 16:24 (Peridex 0.12% Liq) 15 ml BID@08,20 MT 02/04/17 20:00 02/25/17 08:01 Miscellaneous Information 1 Q361D XX 02/04/17 13:15 (Chlorhexidine 2% Cloth) 3 pack Taper DAILY@04 TOP 02/05/17 04:00 02/01/18 03:59 02/24/17 04:00 (Chlorhexidine 2% Cloth) 3 pack UNSCH PRN TOP 02/04/17 13:15 (Trandate Inj) 10 mg Q2HR PRN IV PUSH 02/04/17 13:30 Potassium Chloride 100 ml @ 50 mls/hr Q2H PRN IV 02/06/17 16:00 Potassium Chloride 100 ml @ 50 mls/hr Q2H PRN IV 02/06/17 16:00 02/19/17 08:48 (K-Lyte Cl Eff) 50 meq UNSCH PRN PO 02/06/17 16:00 02/21/17 09:48 Potassium Chloride 100 ml @ 25 mls/hr UNSCH PRN IV 02/06/17 16:00 Potassium Chloride 100 ml @ 50 mls/hr Q2H PRN IV 02/06/17 16:00 Magnesium Sulfate 4 gm/Sodium Chloride 100 ml @ 50 mls/hr UNSCH PRN IV 02/06/17 16:00 (Mag-Ox) 800 mg UNSCH PRN PO 02/06/17 16:00 02/07/17 12:20 Magnesium Sulfate 2 gm/Sodium Chloride 100 ml @ 50 mls/hr UNSCH PRN IV 02/06/17 16:00 (K-Phos) 2,000 mg Q4H PRN PO 02/06/17 16:00 Sodium Phosphate 30 mmol/Sodium Chloride 250 ml @ 42 mls/hr UNSCH PRN IV 02/06/17 16:00 02/08/17 08:46 (K-Phos) 2,000 mg UNSCH PRN PO/TUBE 02/06/17 16:00 Potassium Phosphate 30 mmol/ Sodium Chloride 260 ml @ 42 mls/hr UNSCH PRN IV 02/06/17 16:00 02/11/17 14:36 (Tylenol 650 Mg/ 20 ml Liq) 650 mg Q6H PRN PO 02/09/17 15:30 02/23/17 20:54 (Brethine Inj) 1 mg UNSCH PRN SQ 02/16/17 11:15 (Melatonin) 5 mg HS PO 02/17/17 21:00 02/24/17 21:40 (Xanax) 0.5 mg Q6H PRN PO 02/17/17 18:45 02/25/17 06:17 (Pepcid) 20 mg DAILY NG 02/19/17 09:00 02/25/17 08:01 Potassium Chloride 100 ml @ 25 mls/hr UNSCH PRN IV 02/19/17 09:15 (KCl Powder) 40 meq UNSCH PRN PO 02/19/17 09:15 02/19/17 09:31 (Heparin Inj) 5,000 units Q12HR SQ 02/21/17 09:00 02/25/17 08:02 (D50w (Vial) Inj) 50 ml UNSCH PRN IV PUSH 02/21/17 15:30 (Glucagon Inj) 1 mg UNSCH PRN OTHER 02/21/17 15:30 (NovoLIN R SUPPLEMENTAL SCALE) 1 Q6H SQ 02/21/17 16:00 02/25/17 04:10 Aztreonam 1000 mg/ Sodium Chloride 100 ml @ 200 mls/hr Q8H IV 02/22/17 08:00 02/25/17 08:01 Sodium Chloride 1,000 ml @ 75 mls/hr [id number] IV 02/22/17 10:30 02/24/17 22:00 Metronidazole 100 ml @ 100 mls/hr Q8H IV 02/22/17 20:00 02/25/17 12:31 Micafungin Sodium 150 mg/Sodium Chloride 100 ml @ 100 mls/hr Q24H IV 02/22/17 21:00 02/24/17 21:39 Daptomycin 300 mg/ Sodium Chloride 100 ml @ 200 mls/hr Q24H IV 02/24/17 16:00 02/24/17 16:36 Lines PIV Past Medical History Pneumonia Hyponatremia chronic Esophageal stricture with previous notation. Failure to thrive with progressive weight loss. Recurrent pneumonia. Past Surgical History Surgery for carcinoma colon. Allergies: Coded Allergies: Penicillins (Verified Allergy, Unknown, 02/04/17) Objective . Vital Signs Date Time Temp Pulse Resp B/P (MAP) Pulse Ox O2 Delivery O2 Flow Rate FiO2 02/25/17 12:20 99 35 02/25/17 10:00 80 02/25/17 08:00 35 02/25/17 08:00 98.7 85 30 131/65 (87) 98 02/25/17 08:00 85 02/25/17 07:28 100 35 02/25/17 06:00 77 02/25/17 04:12 100 35 02/25/17 04:00 71 02/25/17 04:00 97.7 71 19 120/57 (78) 100 02/25/17 04:00 35 02/25/17 02:00 75 02/25/17 01:02 98 35 02/25/17 00:00 35 02/25/17 00:00 99.7 74 18 121/60 (80) 99 02/25/17 00:00 74 02/24/17 22:05 100 35 02/24/17 22:00 70 02/24/17 20:00 97.8 73 19 112/57 (75) 100 02/24/17 20:00 73 02/24/17 20:00 35 02/24/17 19:37 100 35 02/24/17 18:00 89 02/24/17 16:45 100 T-piece 28 02/24/17 16:00 98.9 72 24 116/56 (76) 100 02/24/17 16:00 71 02/24/17 16:00 35 02/24/17 14:19 35 02/24/17 14:19 100 35 02/24/17 14:00 73 . Laboratory Tests Test 02/23/17 21:00 02/24/17 05:30 Hemoglobin 8.5 GM/DL 8.5 GM/DL Hematocrit 25.1 % 24.3 % White Blood Count 6.7 TH/MM3 Red Blood Count 2.71 MIL/MM3 Mean Corpuscular Volume 90.0 FL Mean Corpuscular Hemoglobin 31.4 PG Mean Corpuscular Hemoglobin Concent 34.9 % Red Cell Distribution Width 16.8 % Platelet Count 134 TH/MM3 Mean Platelet Volume 8.2 FL Laboratory Tests Test 02/24/17 05:30 Blood Urea Nitrogen 37 MG/DL Creatinine 0.48 MG/DL Random Glucose 152 MG/DL Total Protein 4.3 GM/DL Calcium Level 7.4 MG/DL Sodium Level 144 MEQ/L Potassium Level 3.5 MEQ/L Chloride Level 115 MEQ/L Carbon Dioxide Level 21.7 MEQ/L Anion Gap 7 MEQ/L Estimat Glomerular Filtration Rate 127 ML/MIN Protein Corrected Calcium 9.0 MG/DL Microbiology Date/Time Source Procedure Growth Status 02/24/17 14:27 Sputum Endotracheal Gram Stain - Final Resulted 02/24/17 14:27 Sputum Culture - Preliminary Gram Negative Earl Resulted Imaging Abdomen/Pelvis CT 02/23/17 0000 Signed Impressions: Service Date/Time: Thursday, February 23, 2017 22:14 - CONCLUSION: 1. Small amount of ascites, similar to the prior study. 2. Prominent diffuse superficial soft tissue edema. 3. Gastrostomy tube in place. 4. Cholelithiasis. Gallbladder collapsed. 5. Bilateral lower lobe atelectasis/consolidation and bilateral pleural effusions. 6. No evidence of the previously noted possible rectal mass. There is intraluminal contrast in this region. Mac Werner MD Chest X-Ray 02/22/17 0000 Signed Impressions: Service Date/Time: Wednesday, February 22, 2017 08:10 - CONCLUSION: Decreasing parenchymal changes left base. Tracheostomy tube in good position. Gregorio Jacob MD FACR Chest X-Ray 02/22/17 0000 Signed Impressions: Service Date/Time: Wednesday, February 22, 2017 08:10 - CONCLUSION: Decreasing parenchymal changes left base. Tracheostomy tube in good position. Gregorio Jacob MD FACR Abdomen/Pelvis CT 02/14/17 0000 Signed Impressions: Service Date/Time: Tuesday, February 14, 2017 23:14 - CONCLUSION: 1. Nonspecific small ascites with bilateral pleural effusions and body wall edema/anasarca. No abscess demonstrated. 2. Possible mass of the lower rectum and please correlate clinically. 3. Gastric feeding tube with tip in the lower body. 4. Sigmoid colon diverticulosis without perceptible acute inflammatory changes. 5. Cholelithiasis without evidence of cholecystitis or biliary obstruction. Phan Lomas MD Gastrostomy Tube Placement 02/05/17 0000 Signed Impressions: Service Date/Time: January 16:47 - CONCLUSION: Uncomplicated gastrostomy tube placement as above. Jorje Josue MD Lower Extremity Ultrasound 02/04/17 Signed Impressions: Service Date/Time: Saturday, February 04, 2017 21:13 - CONCLUSION: 1. No evidence of deep venous thrombosis within the lower extremities. 2. Popliteal cyst on the left measuring 2.2 x 1.5 x 0.9 cm. Julian Mcmahan MD Head CT 02/04/17 0000 Signed Impressions: Service Date/Time: Saturday, February 04, 2017 17:50 - CONCLUSION: 1. No acute intracranial abnormality. 2. Tiny fluid level within the right maxillary sinus. Julian Mcmahan MD CT Angiography 02/04/17 Signed Impressions: Service Date/Time: Saturday, February 04, 2017 17:54 - CONCLUSION: 1. No evidence of pulmonary embolism. 2. Bibasilar alveolar consolidations as well as scattered perihilar patchy opacities suggestive of probable pneumonia. Clinical correlation is recommended. 3. 1.7 cm right thyroid nodule. Julian Mcmahan MD Abdomen X-Ray 02/04/17 0000 Signed Impressions: Service Date/Time: January 05:52 - CONCLUSION: Interval placement of nasogastric tube with the tip in the left mainstem bronchus. Caesar Ramos MD Physical Exam GENERAL: Awake and alert, NAD, on CPAP SKIN: No jaundice, rashes, or lesions. Skin temperature appropriate. Not diaphoretic. EYES: Pupils equal and round and reactive. Extraocular motions intact. No scleral icterus. No injection or drainage. Fundi not examined. ENT: Nose without bleeding or purulent drainage. Throat without visible erythema, exudates, masses, or lesions. NECK: Trach site ok CARDIOVASCULAR: Regular rate and rhythm without murmurs, gallops, or rubs. RESPIRATORY/CHEST: Symmetric, unlabored respirations. Clear to auscultation. Breath sounds equal bilaterally. No wheezes, rales, or rhonchi. GASTROINTESTINAL: Abdomen soft, not distended, (+) BS, with mild tenderness, no guarding or rebound GENITOURINARY: Without palpable bladder distension. cath in place with clear yellow urine MUSCULOSKELETAL: Extremities without clubbing, cyanosis, or edema. No calf tenderness. No mottling or clubbing. PSYCHIATRIC: Calm and cooperative : Cabrera in place, urine ok LINE: No evidence of infection Assessment & Plan Remarks PNA, now with GNR in sputum Acute VDRF - recurrent intubation - failure to wean - S/P trach 02/16 Diarrhea, abx associated - C.diff negative Rectal mass, h/o cancer - pt refusing colonoscopy - last CT no mass seen on imaging Abdominal pain, diffuse - improved Leukocytosis, better Profound malnourishment, hypoalbuminemia New fever, sepsis / source, better (+) VRE in UC, but UA ok - now with urinary retention PLAN Follow new C/S Continue Azactam Continue Cubicin Stop Micafungin Continue Flagyl Repeat UA and C/S today Monitor temps Monitor progress Will deescalate Abx on C/S available Weaning per [facility] Mary Haro MD Feb 25, 2017 12:48
--- NOTE | 2017-02-25 15:23 | HHI.PR ---
Subjective Remarks 71 YOWF with VDRF,Bibasilar infilt gets anxious On Trach collar, comfortable Tolerates TF Objective Vital Signs Vital Signs Date Time Temp Pulse Resp B/P (MAP) Pulse Ox O2 Delivery O2 Flow Rate FiO2 02/25/17 15:14 100 35 02/25/17 14:00 87 02/25/17 12:20 99 35 02/25/17 12:00 86 02/25/17 12:00 35 02/25/17 12:00 98.6 86 29 142/67 (92) 98 02/25/17 10:00 80 02/25/17 08:00 35 02/25/17 08:00 98.7 85 30 131/65 (87) 98 02/25/17 08:00 85 02/25/17 07:28 100 35 02/25/17 06:00 77 02/25/17 04:12 100 35 02/25/17 04:00 71 02/25/17 04:00 97.7 71 19 120/57 (78) 100 02/25/17 04:00 35 02/25/17 02:00 75 02/25/17 01:02 98 35 02/25/17 00:00 35 02/25/17 00:00 99.7 74 18 121/60 (80) 99 02/25/17 00:00 74 02/24/17 22:05 100 35 02/24/17 22:00 70 02/24/17 20:00 97.8 73 19 112/57 (75) 100 02/24/17 20:00 73 02/24/17 20:00 35 02/24/17 19:37 100 35 02/24/17 18:00 89 02/24/17 16:45 100 T-piece 28 02/24/17 16:00 98.9 72 24 116/56 (76) 100 02/24/17 16:00 71 02/24/17 16:00 35 I/O 02/24/17 02/24/17 02/24/17 02/25/17 02/25/17 02/25/17 07:00 15:00 23:00 07:00 15:00 23:00 Intake Total 807 ml 450 ml 1968 ml 1285 ml Output Total 650 ml 650 ml 600 ml Balance 157 ml 450 ml 1318 ml 685 ml IV Total 400 ml 450 ml 1300 ml 787 ml Tube Feeding 287 ml 548 ml 498 ml Other 120 ml 120 ml Output Urine Total 650 ml 650 ml 600 ml # Bowel Movements 1 5 1 Result Diagram: 02/24/1752902/24/17529 Objective Remarks GENERAL: Frail elderly female, on Vent SKIN: Warm and dry. HEAD: Normocephalic. EYES: No scleral icterus. No injection or drainage. NECK: Supple, trachea midline. No JVD or lymphadenopathy. CARDIOVASCULAR: Regular rate and rhythm without murmurs, gallops, or rubs. RESPIRATORY: Breath sounds equal bilaterally. No accessory muscle use. GASTROINTESTINAL: Abdomen soft, non-tender, nondistended. MUSCULOSKELETAL: No cyanosis, or edema. BACK: Nontender without obvious deformity. No CVA tenderness. A/P Assessment and Plan VDRF, s/p Trach 02/16 Bibasilar infilterates Hypotension Anxiety H/O Ca colon Weight loss PLAN: Cont Abx IV Solumedrol Xanax 0.5 mg q 6 hrs Trach care Cont Trach collar Tube feeding Yusef Hernandez MD Feb 25, 2017 15:23
[2017-02-25] MEDS: DAPTOmycin INJ 300 MG in SODIUM CHLORIDE 0.9% INJ 100 ML IV SCH (15:39)
[2017-02-25] MEDS: ACETAMINOPHEN 650 MG/20.3 ML UDC PO PRN (15:41)
[2017-02-25 20:50] LABS: BACTERIA, URINE RARE /hpf; BILIRUBIN, URINE NEG (NEG); BLOOD, URINE TRACE (NEG); GLUCOSE,URINE NEG (NEG); KETONE, URINE NEG (NEG); MUCUS URINE FEW /lpf (OCC); NITRITE,URINE NEG (NEG); PH, URINE 5.5 (5.0-8.5); SQUAMOUS EPITHELIAL CELL URINE 1 /hpf (0-5); URINE COLOR YELLOW (YELLW/STRAW); URINE LEUKOCYTE ESTERASE SMALL (NEG)
[2017-02-25] MEDS: MICAFUNGIN INJ 150 MG in SODIUM CHLORIDE 0.9% INJ 100 ML IV SCH (21:03)
[2017-02-25] MEDS: MELATONIN 5 MG TAB PO SCH (21:03)
[2017-02-26] VITALS (19 sets, daily range): BP systolic 115–124; BP diastolic 57–61; PULSE 73–95; RESP 25–33; TEMP 98.2–99.2; O2SAT 98–100
[2017-02-26] MEDS: CHLORHEXIDINE GLUCONATE 2 % 1 PACK (2 CLOTHS) TOP SCH (01:53)
[2017-02-26] MEDS: INSULIN NovoLIN REGULAR SUPPLEMENTAL SCALE SQ SCH ×4 (03:20→22:00)
[2017-02-26] MEDS: ALPRAZolam 0.5 MG TAB PO PRN ×3 (03:24→19:57)
[2017-02-26] MEDS: metroNIDAZOLE 500 MG INJ 100 ML IV SCH (03:24)
[2017-02-26] MEDS: AZTREONAM INJ 1,000 MG in SODIUM CHLORIDE 0.9% INJ 100 ML IV SCH ×3 (09:04→22:31)
[2017-02-26] MEDS: SODIUM CHLOR 0.9% 1000 ML INJ 1,000 ML IV SCH ×2 (09:05→21:59)
[2017-02-26] MEDS: FAMOTIDINE 20 MG TAB NG SCH (09:05)
[2017-02-26] MEDS: HEPARIN SODIUM - SQ 10,000 UNITS/ML VIAL SQ SCH ×2 (09:05→19:57)
[2017-02-26] MEDS: SODIUM CHLORIDE 0.9% FLUSH 10 ML FLUSH IV FLUSH SCH ×2 (09:05→19:56)
[2017-02-26] MEDS: CHLORHEXIDINE 0.12% (ORAL KIT) 15 ML CUP MT SCH ×2 (09:06→19:56)
--- NOTE | 2017-02-26 10:34 | HHI.CCPN ---
Subjective Remarks/Hospital Course 02/04: 71-year-old female with a medical history significant for colon cancer in 2003 for which she underwent partial colon resection and chemotherapy, esophageal stricture with significant weight loss due to poor by mouth intake for which she was hospitalized in [place] in November 2016 for 2 weeks treated for pneumonia and subsequently evaluated for dysphagia and was found to have a sufficient stricture for which she was transferred to [facility] in [place] and underwent esophageal dilatation and was subsequently discharged 2 weeks later on a pured diet. Patient moved to [place] with her granddaughter and a few beats VAC was admitted to [facility] for worsening shortness of breath and was diagnosed with a pneumonia, hyponatremia. She was treated with antibiotics and subsequently discharged home however the following day had to be readmitted at [facility] for unresolved shortness of breath where she was hospitalized for a week and subsequently discharged to long term 3 days prior to this admission. Patient's by mouth intake has been poor since her discharge 3 days back according to her granddaughter as the pured diet at the long term is to take. Patient was found to have altered mental status today and was found slumped to one side with poor respirations. EMS was called and patient was noted to have O2 sats in the 60s. She was transported to the emergency room where she was placed on BiPAP for respiratory distress with hypoxic respiratory failure. She was also noted to be hypertensive on arrival with systolic blood pressure in the 200s. Patient was also found to have a sodium of 118. I was contacted by ER physician and accepted patient for admission to the ICU. When I evaluated the patient in the ER she was on BiPAP with full facemask. History was obtained by discussion with patient's granddaughter was at the bedside. Patient was much more awake at this time and trying to communicate however in view of BiPAP requirement was difficult to communicate with. She denied any chest pain at the time. Patient has chronic diarrhea since her colon surgery in 2003. Per the granddaughter she was doing well till about 3 months ago when she started having significant weight loss and poor by mouth intake possibly related to esophageal stricture and the fact that she was taking care of her sick family member at home. She has been advised a PEG tube per the granddaughter because of her poor nutritional status and poor by mouth intake. She has had problems with hyponatremia off and on for a while. Patient's granddaughter is very concerned about her poor nutritional status. 02/05: Tolerating nasal cannula. Underwent PEG tube placement by IR today. Sodium 122. 02/06 No events overnight. s/p PEG tube placement yesterday. Sodium level 131 this morning 02/07 No events overnight. On 50% VM with good sats. 02/08 No events overnight. Afebrile . Off BIPAP. 02/09 Patient is on BIPAP 02/03 with 45% FIO2> Afebrile. 02/10 Patient was intubated early this morning for acute hypercapnic resp acidosis. Afebrile. 02/11 No events overnight. Patient remains intubated. Afebrile. 02/12 Patient remains intubated and on Precedex drip for sedation. Afebrile. 02/13 Patient was extubated yesterday and reintubated late afternoon for acute resp acidosis. afebrile. 02/14: remains intubated. appears very weak. long conversation with granddaughter and medical decision-maker at bedside. likely will require tracheostomy given repeat re-intubations and chronic debilitation. granddaughter requests we wait until thursday or thursday, and requests it be done in the OR and not at bedside. 02/15: wake and more alert. however, only tolerated 10 minutes of CPAP before becoming tachypneic and failing. gen surg consulted for trach: family requests OR trach due to concerns over infection risk at bedside. I counseled patient's family that there was no increased risk of infection, and the trachea is inherently an unsterile environment with endotracheal tube in place, but family insists on OR trach. hypernatremia slightly worse despite increasing free water. 02/16: still awake and alert. failed CPAP again today. plan for trach today. 02/17: s/p trach yesterday. doing well. still failing CPAP for weakness and tachypnea. needs LTAC. hyponatremia and hypokalemia: kcl replacement and holding free water. 02/18: sodium improving. doing well. needs aggressive PT. 02/19 No events overnight. On ventilator via trach. Afebrile. 02/20 No events overnight. For Colonoscopy today. Afebrile. 02/21 Patient refused colonoscopy yesterday. Tolerated TP's during day and placed on CPAP overnight. Afebrile. 02/22 Patient went into Afib with RVR overnight given Lopressor 5mg IV x1 and Mag sulfate. T:103 this morning 02/23: Remains on mechanical ventilation via tracheostomy. On tube feeds via PEG. No melena or rectal bleeding. Awaiting repeat CBC for hemoglobin 7 on a.m. labs 02/24: Awake and alert. On mechanical ventilation via tracheostomy. Transfuse 1 unit PRBCs yesterday. Hemoglobin 8.2 this morning. 02/25: Awake and alert. On C Pap trial via tracheostomy. 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 02/26: no improvements. remains weak. has CAUTI and VAP, on abx therapy. awaiting bed at [facility]. Objective Vital Signs Date Time Temp Pulse Resp B/P (MAP) Pulse Ox O2 Delivery O2 Flow Rate FiO2 02/26/17 10:00 78 02/26/17 08:00 98.6 32 124/61 (82) 98 02/26/17 07:45 30 02/24/17 16:45 T-piece Intake and Output 02/26/17 02/26/17 02/27/17 08:00 16:00 00:00 Intake Total 1492 ml Output Total 470 ml Balance 1022 ml Result Diagram: 02/24/17 0530 02/24/17 0530 Other Results Microbiology Date/Time Source Procedure Growth Status 02/24/17 14:27 Sputum Endotracheal Gram Stain - Final Complete 02/24/17 14:27 Sputum Culture - Final Pseudomonas Aeruginosa Complete Imaging Last Impressions Chest X-Ray 02/19/17 0000 Signed Impressions: Service Date/Time: January 08:52 - CONCLUSION: 1. Interval improvement in bilateral lower lobe infiltrates and improving left sided effusion as detailed above. 2. Interval removal of the endotracheal tube with placement of a tracheostomy. Tip is appropriately positioned at the clavicular head. Nura Cook MD Abdomen/Pelvis CT 02/14/17 0000 Signed Impressions: Service Date/Time: Tuesday, February 14, 2017 23:14 - CONCLUSION: 1. Nonspecific small ascites with bilateral pleural effusions and body wall edema/anasarca. No abscess demonstrated. 2. Possible mass of the lower rectum and please correlate clinically. 3. Gastric feeding tube with tip in the lower body. 4. Sigmoid colon diverticulosis without perceptible acute inflammatory changes. 5. Cholelithiasis without evidence of cholecystitis or biliary obstruction. Phan Lomas MD Gastrostomy Tube Placement 02/05/17 0000 Signed Impressions: Service Date/Time: January 16:47 - CONCLUSION: Uncomplicated gastrostomy tube placement as above. Jorje Josue MD Lower Extremity Ultrasound 02/04/17 0000 Signed Impressions: Service Date/Time: Saturday, February 04, 2017 21:13 - CONCLUSION: 1. No evidence of deep venous thrombosis within the lower extremities. 2. Popliteal cyst on the left measuring 2.2 x 1.5 x 0.9 cm. Julian Mcmahan MD Head CT 02/04/17 0000 Signed Impressions: Service Date/Time: Saturday, February 04, 2017 17:50 - CONCLUSION: 1. No acute intracranial abnormality. 2. Tiny fluid level within the right maxillary sinus. Julian Mcmahan MD CT Angiography 02/04/17 0000 Signed Impressions: Service Date/Time: Saturday, February 04, 2017 17:54 - CONCLUSION: 1. No evidence of pulmonary embolism. 2. Bibasilar alveolar consolidations as well as scattered perihilar patchy opacities suggestive of probable pneumonia. Clinical correlation is recommended. 3. 1.7 cm right thyroid nodule. Julian Mcmahan MD Abdomen X-Ray 02/04/17 0000 Signed Impressions: Service Date/Time: January 05:52 - CONCLUSION: Interval placement of nasogastric tube with the tip in the left mainstem bronchus. Caesar Ramos MD Objective Remarks GENERAL: frail elderly female, lying in bed, trach in place SKIN: Warm and dry. HEAD: Normocephalic. EYES: No scleral icterus. No injection or drainage. NECK: trachea midline. No JVD. trach in place. CARDIOVASCULAR:Tachycardic, regular rhythm. RESPIRATORY: On mechanical ventilation via tracheostomy. GASTROINTESTINAL: Abdomen soft, non-tender, nondistended. no guarding. MUSCULOSKELETAL: No cyanosis, or edema. Neuro: Awake alert oriented 3, follows commands. moves all extremities. A/P Assessment and Plan Assessment: 71yF with at least a 3 month chronic course of failure to thrive and weight loss, esophageal stricture, and now recurrent hypoxic and hypercarbic respiratory failure requiring multiple intubations. She needs aggressive pulmonary rehab in an LTAC type facility. Plan: Neuro: Acute metabolic encephalopathy Anxiety Insomnia - Monitor neuro status. On no sedation family have asked that we avoid fentanyl, versed, and propofol because in their past experience, she has reacted poorly to these. they request Precedex only. Xanax to 0.5mg po q6h prn melatonin 5mg po qHS for sleep CV: New onset Afib with RVR Monitor HR and BP keep MAP>65mmHg Check EKG, Ck/trop, 2D echo to eval LV function Pulm: Recurrent acute hypercarbic and hypoxic respiratory failure likely secondary to deconditioning and weakness. likely also large component of silent or overt aspiration and inability to control secretions. Continue with vent support keep sat >92% On PRVC 16, 450, 1.0, 5, 40% Bronchodilators. ICU vent bundle. CT chest with no evidence of PE and shows bibasilar infiltrates concerning for recurrent aspiration pneumonia Pulm is following. continue daily SBTs. needs LTAC. s/p trach 02/[address] Chaudhry prednisone taper. GI/liver: Failure to thrive Hypernatremia- resolved. Free water deficit- resolved. Chronic diarrhea History of esophageal stricture status post recent esophageal dilation History of colon cancer Acute protein calorie malnutrition - severe hyponatremia- improving. s/p PEG tube placement by IR 02/05 On Tube feeds(Jevity 1.5 @ 40ml/hr) GI is following for ? rectal mass on CT abdomen. Patient refused colonoscopy. repeat CT on 02/23 did not show rectal mass. Check tumor markers- CEA level and CA19-9. Renal/: Acute intravascular volume overload- improving. Metabolic alkalosis Monitor renal function, I/O's, electrolytes replacement per protocol. ID: Healthcare Associated Pneumonia- s/p full course abx ( Cefepime, Azithromycin). On Aztreonam, vanc, micafungin per ID. daptomycin started on 02/24 for VRE in urine. We will discuss stopping vancomycin with ID F/u panculture(( Blood, sputum, UA with cx if indicated) for worsening leukocytosis and new onset fever -C-diff PCR is negative on 02/21 and 02/10 ID following. Endocrine: Hyperglycemia of Critical Illness SSI for glycemic control Heme-onc: Anemia secondary to chronic disease Monitor CBC, transfuse to keep Hgb greater than 8gm% Prophylaxis: Pepcid/SCDs. heparin SQ( H/H stable and no signs of bleeding) Palliative care is following Awaiting placement in LTAC facility Waldo Luke MD Feb 26, 2017 10:34
--- NOTE | 2017-02-26 11:20 | HHI.IDPN ---
Subjective Subjective Remarks ID COVERAGE Chart reviewed 71 yo female with h/o remote colon ca admitted one week ago with resp issues CTA showed no embolism, but had pneumonia She was on BIPAP for a week and got intubated today after eventually failing it Her sputum was purulent and has gram positive on Gstain Notes reviewed Temps ok On CPAP UC 02/22 with VRE, but UA ok repeat UA with mild pyuria, UC pending Cabrera reinserted yesterday due to retention Sputum with pansensitive PSAE WBC normal CT A/P no intraabdominal pathology Has diarrhea Antibiotics Azactam Flagyl Micafungin Cubicin Current Medications Medications (Trade) Dose Ordered Sig/Celine Route Start Time Stop Time Status Last Admin (NS Flush) 2 ml UNSCH PRN IV FLUSH 02/04/17 13:15 02/21/17 09:46 (NS Flush) 2 ml BID IV FLUSH 02/04/17 21:00 02/26/17 09:05 (Duoneb Neb) 1 ampule Q4HR NEB PRN INH 02/04/17 14:00 02/24/17 16:24 (Peridex 0.12% Liq) 15 ml BID@08,20 MT 02/04/17 20:00 02/26/17 09:06 Miscellaneous Information 1 Q361D XX 02/04/17 13:15 (Chlorhexidine 2% Cloth) 3 pack Taper DAILY@04 TOP 02/05/17 04:00 02/01/18 03:59 02/24/17 04:00 (Chlorhexidine 2% Cloth) 3 pack UNSCH PRN TOP 02/04/17 13:15 (Trandate Inj) 10 mg Q2HR PRN IV PUSH 02/04/17 13:30 Potassium Chloride 100 ml @ 50 mls/hr Q2H PRN IV 02/06/17 16:00 Potassium Chloride 100 ml @ 50 mls/hr Q2H PRN IV 02/06/17 16:00 02/19/17 08:48 (K-Lyte Cl Eff) 50 meq UNSCH PRN PO 02/06/17 16:00 02/21/17 09:48 Potassium Chloride 100 ml @ 25 mls/hr UNSCH PRN IV 02/06/17 16:00 Potassium Chloride 100 ml @ 50 mls/hr Q2H PRN IV 02/06/17 16:00 Magnesium Sulfate 4 gm/Sodium Chloride 100 ml @ 50 mls/hr UNSCH PRN IV 02/06/17 16:00 (Mag-Ox) 800 mg UNSCH PRN PO 02/06/17 16:00 02/07/17 12:20 Magnesium Sulfate 2 gm/Sodium Chloride 100 ml @ 50 mls/hr UNSCH PRN IV 02/06/17 16:00 (K-Phos) 2,000 mg Q4H PRN PO 02/06/17 16:00 Sodium Phosphate 30 mmol/Sodium Chloride 250 ml @ 42 mls/hr UNSCH PRN IV 02/06/17 16:00 02/08/17 08:46 (K-Phos) 2,000 mg UNSCH PRN PO/TUBE 02/06/17 16:00 Potassium Phosphate 30 mmol/ Sodium Chloride 260 ml @ 42 mls/hr UNSCH PRN IV 02/06/17 16:00 02/11/17 14:36 (Tylenol 650 Mg/ 20 ml Liq) 650 mg Q6H PRN PO 02/09/17 15:30 02/25/17 15:41 (Brethine Inj) 1 mg UNSCH PRN SQ 02/16/17 11:15 (Melatonin) 5 mg HS PO 02/17/17 21:00 02/25/17 21:03 (Xanax) 0.5 mg Q6H PRN PO 02/17/17 18:45 02/26/17 03:24 (Pepcid) 20 mg DAILY NG 02/19/17 09:00 02/26/17 09:05 Potassium Chloride 100 ml @ 25 mls/hr UNSCH PRN IV 02/19/17 09:15 (KCl Powder) 40 meq UNSCH PRN PO 02/19/17 09:15 02/19/17 09:31 (Heparin Inj) 5,000 units Q12HR SQ 02/21/17 09:00 02/26/17 09:05 (D50w (Vial) Inj) 50 ml UNSCH PRN IV PUSH 02/21/17 15:30 (Glucagon Inj) 1 mg UNSCH PRN OTHER 02/21/17 15:30 (NovoLIN R SUPPLEMENTAL SCALE) 1 Q6H SQ 02/21/17 16:00 02/25/17 15:39 Aztreonam 1000 mg/ Sodium Chloride 100 ml @ 200 mls/hr Q8H IV 02/22/17 08:00 02/26/17 09:04 Sodium Chloride 1,000 ml @ 75 mls/hr [id number] IV 02/22/17 10:30 02/26/17 09:05 Metronidazole 100 ml @ 100 mls/hr Q8H IV 02/22/17 20:00 02/26/17 03:24 Daptomycin 300 mg/ Sodium Chloride 100 ml @ 200 mls/hr Q24H IV 02/24/17 16:00 02/25/17 15:39 Lines PIV Past Medical History Pneumonia Hyponatremia chronic Esophageal stricture with previous notation. Failure to thrive with progressive weight loss. Recurrent pneumonia. Past Surgical History Surgery for carcinoma colon. Allergies: Coded Allergies: Penicillins (Verified Allergy, Unknown, 02/04/17) Objective . Vital Signs Date Time Temp Pulse Resp B/P (MAP) Pulse Ox O2 Delivery O2 Flow Rate FiO2 02/26/17 10:00 78 02/26/17 08:00 98.6 81 32 124/61 (82) 98 02/26/17 08:00 81 02/26/17 08:00 35 02/26/17 07:45 100 30 02/26/17 06:00 75 02/26/17 04:26 100 30 02/26/17 04:00 79 02/26/17 04:00 98.8 79 26 122/58 (79) 100 02/26/17 04:00 35 02/26/17 02:00 73 02/26/17 00:24 100 35 02/26/17 00:00 35 02/26/17 00:00 98.2 73 25 123/60 (81) 100 02/26/17 00:00 73 02/25/17 22:00 73 02/25/17 20:00 99.1 74 25 120/58 (78) 99 02/25/17 20:00 35 02/25/17 20:00 74 02/25/17 19:53 100 35 02/25/17 18:00 85 02/25/17 16:00 99.6 87 31 154/78 (103) 99 02/25/17 16:00 87 02/25/17 16:00 35 02/25/17 15:14 100 35 02/25/17 14:00 87 02/25/17 12:20 99 35 02/25/17 12:00 86 02/25/17 12:00 35 02/25/17 12:00 98.6 86 29 142/67 (92) 98 02/26/17 02/26/17 02/27/17 15:00 23:00 07:00 Intake Total 100 ml Balance 100 ml IV Total 100 ml . Microbiology Date/Time Source Procedure Growth Status 02/24/17 14:27 Sputum Endotracheal Gram Stain - Final Complete 02/24/17 14:27 Sputum Culture - Final Pseudomonas Aeruginosa Complete 02/25/17 18:37 Urine Catheterized Urine Urine Culture Pending Received Imaging Abdomen/Pelvis CT 02/23/17 0000 Signed Impressions: Service Date/Time: Thursday, February 23, 2017 22:14 - CONCLUSION: 1. Small amount of ascites, similar to the prior study. 2. Prominent diffuse superficial soft tissue edema. 3. Gastrostomy tube in place. 4. Cholelithiasis. Gallbladder collapsed. 5. Bilateral lower lobe atelectasis/consolidation and bilateral pleural effusions. 6. No evidence of the previously noted possible rectal mass. There is intraluminal contrast in this region. Mac Werner MD Chest X-Ray 02/22/17 0000 Signed Impressions: Service Date/Time: Wednesday, February 22, 2017 08:10 - CONCLUSION: Decreasing parenchymal changes left base. Tracheostomy tube in good position. Gregorio Jacob MD FACR Chest X-Ray 02/22/17 0000 Signed Impressions: Service Date/Time: Wednesday, February 22, 2017 08:10 - CONCLUSION: Decreasing parenchymal changes left base. Tracheostomy tube in good position. Gregorio Jacob MD FACR Abdomen/Pelvis CT 02/14/17 0000 Signed Impressions: Service Date/Time: Tuesday, February 14, 2017 23:14 - CONCLUSION: 1. Nonspecific small ascites with bilateral pleural effusions and body wall edema/anasarca. No abscess demonstrated. 2. Possible mass of the lower rectum and please correlate clinically. 3. Gastric feeding tube with tip in the lower body. 4. Sigmoid colon diverticulosis without perceptible acute inflammatory changes. 5. Cholelithiasis without evidence of cholecystitis or biliary obstruction. Phan Lomas MD Gastrostomy Tube Placement 02/05/17 0000 Signed Impressions: Service Date/Time: January 16:47 - CONCLUSION: Uncomplicated gastrostomy tube placement as above. Jorje Josue MD Lower Extremity Ultrasound 02/04/17 Signed Impressions: Service Date/Time: Saturday, February 04, 2017 21:13 - CONCLUSION: 1. No evidence of deep venous thrombosis within the lower extremities. 2. Popliteal cyst on the left measuring 2.2 x 1.5 x 0.9 cm. Julian Mcmahan MD Head CT 02/04/17 Signed Impressions: Service Date/Time: Saturday, February 04, 2017 17:50 - CONCLUSION: 1. No acute intracranial abnormality. 2. Tiny fluid level within the right maxillary sinus. Julian Mcmahan MD CT Angiography 02/04/17 Signed Impressions: Service Date/Time: Saturday, February 04, 2017 17:54 - CONCLUSION: 1. No evidence of pulmonary embolism. 2. Bibasilar alveolar consolidations as well as scattered perihilar patchy opacities suggestive of probable pneumonia. Clinical correlation is recommended. 3. 1.7 cm right thyroid nodule. Julian Mcmahan MD Abdomen X-Ray 02/04/17 Signed Impressions: Service Date/Time: January 05:52 - CONCLUSION: Interval placement of nasogastric tube with the tip in the left mainstem bronchus. Caesar Ramos MD Physical Exam GENERAL: Awake and alert, NAD, on CPAP SKIN: No jaundice, rashes, or lesions. Skin temperature appropriate. Not diaphoretic. EYES: Pupils equal and round and reactive. Extraocular motions intact. No scleral icterus. No injection or drainage. Fundi not examined. ENT: Nose without bleeding or purulent drainage. Throat without visible erythema, exudates, masses, or lesions. NECK: Trach site ok CARDIOVASCULAR: Regular rate and rhythm without murmurs, gallops, or rubs. RESPIRATORY/CHEST: Symmetric, unlabored respirations. Clear to auscultation. Breath sounds equal bilaterally. No wheezes, rales, or rhonchi. GASTROINTESTINAL: Abdomen soft, not distended, (+) BS, with mild tenderness, no guarding or rebound GENITOURINARY: Without palpable bladder distension. cath in place with clear yellow urine MUSCULOSKELETAL: Extremities without clubbing, cyanosis, or edema. No calf tenderness. No mottling or clubbing. PSYCHIATRIC: Calm and cooperative : Cabrera in place, urine ok LINE: No evidence of infection Assessment & Plan Remarks PNA, has PSAE in C/S Acute VDRF - recurrent intubation - failure to wean - S/P trach 02/16 Diarrhea, abx associated - C.diff negative Rectal mass, h/o cancer - pt refusing colonoscopy - last CT no mass seen on imaging Abdominal pain, diffuse - improved Leukocytosis, better Profound malnourishment, hypoalbuminemia New fever, sepsis / source, better (+) VRE in UC, but UA ok - now with urinary retention PLAN Follow new C/S Continue Azactam Continue Cubicin Continue Flagyl, change to po Monitor temps Monitor progress Will deescalate Abx on C/S available Weaning per CCM Being referred to Mary Hernández MD Feb 26, 2017 11:20
[2017-02-26] MEDS: metroNIDAZOLE 500 MG TAB PO SCH ×2 (15:19→22:00)
[2017-02-26] MEDS: LORATADINE 10 MG TAB PO SCH (16:06)
[2017-02-26] MEDS: DAPTOmycin INJ 300 MG in SODIUM CHLORIDE 0.9% INJ 100 ML IV SCH (16:36)
--- NOTE | 2017-02-26 18:53 | HHI.PR ---
Subjective Remarks 71 YOWF with VDRF,Bibasilar infilt gets anxious On Trach collar, comfortable Tolerates TF Sp Pseudomonas Objective Vital Signs Vital Signs Date Time Temp Pulse Resp B/P (MAP) Pulse Ox O2 Delivery O2 Flow Rate FiO2 02/26/17 18:00 85 02/26/17 16:00 35 02/26/17 16:00 95 02/26/17 16:00 99.2 95 33 117/59 (78) 98 02/26/17 15:51 100 30 02/26/17 14:00 76 02/26/17 13:05 100 30 02/26/17 12:00 78 02/26/17 12:00 98.7 78 26 117/57 (77) 100 02/26/17 12:00 35 02/26/17 10:00 78 02/26/17 08:00 98.6 81 32 124/61 (82) 98 02/26/17 08:00 81 02/26/17 08:00 35 02/26/17 07:45 100 30 02/26/17 06:00 75 02/26/17 04:26 100 30 02/26/17 04:00 79 02/26/17 04:00 98.8 79 26 122/58 (79) 100 02/26/17 04:00 35 02/26/17 02:00 73 02/26/17 00:24 100 35 02/26/17 00:00 35 02/26/17 00:00 98.2 73 25 123/60 (81) 100 02/26/17 00:00 73 02/25/17 22:00 73 02/25/17 20:00 99.1 74 25 120/58 (78) 99 02/25/17 20:00 35 02/25/17 20:00 74 02/25/17 19:53 100 35 I/O 02/25/17 02/25/17 02/25/17 02/26/17 02/26/17 02/26/17 07:00 15:00 23:00 07:00 15:00 23:00 Intake Total 1285 ml 200 ml 1682 ml 1492 ml 1100 ml 1584 ml Output Total 600 ml 650 ml 470 ml 600 ml Balance 685 ml 200 ml 1032 ml 1022 ml 1100 ml 984 ml IV Total 787 ml 200 ml 987 ml 980 ml 1100 ml 932 ml Tube Feeding 498 ml 515 ml 512 ml 532 ml Other 180 ml 120 ml Output Urine Total 600 ml 650 ml 470 ml 600 ml # Bowel Movements 1 6 3 Result Diagram: 02/24/1752902/24/17529 Objective Remarks GENERAL: Frail elderly female, on Vent SKIN: Warm and dry. HEAD: Normocephalic. EYES: No scleral icterus. No injection or drainage. NECK: Supple, trachea midline. No JVD or lymphadenopathy. CARDIOVASCULAR: Regular rate and rhythm without murmurs, gallops, or rubs. RESPIRATORY: Breath sounds equal bilaterally. No accessory muscle use. GASTROINTESTINAL: Abdomen soft, non-tender, nondistended. MUSCULOSKELETAL: No cyanosis, or edema. BACK: Nontender without obvious deformity. No CVA tenderness. A/P Assessment and Plan VDRF, s/p Trach 02/16 Bibasilar infilterates Hypotension Anxiety H/O Ca colon Weight loss PLAN: Cont Abx Azactam, Cubicin,Flagyl per ID IV Solumedrol Xanax 0.5 mg q 6 hrs Trach care Cont Trach collar Tube feeding Yusef Hernandez MD Feb 26, 2017 18:53
[2017-02-26] MEDS: MELATONIN 5 MG TAB PO SCH (19:57)
[2017-02-27] VITALS (9 sets, daily range): BP systolic 115–119; BP diastolic 55–64; PULSE 71–86; RESP 29–35; TEMP 98.9; O2SAT 98–100
[2017-02-27] MEDS: CHLORHEXIDINE GLUCONATE 2 % 1 PACK (2 CLOTHS) TOP SCH (04:00)
[2017-02-27] MEDS: metroNIDAZOLE 500 MG TAB PO SCH (05:39)
[2017-02-27] MEDS: INSULIN NovoLIN REGULAR SUPPLEMENTAL SCALE SQ SCH ×3 (05:52→16:00)
[2017-02-27 07:01] LABS: HEMATOCRIT 25.5 % (35.0-46.0); HEMOGLOBIN 8.6 GM/DL (11.6-15.3); MEAN CELL VOLUME 88.8 FL (80.0-100.0); MEAN CORPUSCULAR HGB CONC 33.8 % (32.0-36.0); MEAN PLATELET VOLUME 8.3 FL (7.0-11.0); PLATELET COUNT 116 TH/MM3 (150-450); RED BLOOD COUNT 2.87 MIL/MM3 (4.00-5.30); RED CELL DISTRIBUTION WIDTH 17.2 % (11.6-17.2)
[2017-02-27 07:25] LABS: BICARBONATE 19.7 MEQ/L (21.0-32.0); CALCIUM 7.2 MG/DL (8.5-10.1); CREATININE 0.39 MG/DL (0.50-1.00)
[2017-02-27 07:43] LABS: CALCIUM-PROTEIN CORRECTED 8.9 MG/DL (8.5-10.1); TOTAL PROTEIN 4.1 GM/DL (6.4-8.2)
[2017-02-27] MEDS: CHLORHEXIDINE 0.12% (ORAL KIT) 15 ML CUP MT SCH (08:00)
--- NOTE | 2017-02-27 08:54 | HHI.IDPN ---
Subjective Subjective Remarks ID COVERAGE Chart reviewed 71 yo female with h/o remote colon ca admitted one week ago with resp issues CTA showed no embolism, but had pneumonia She was on BIPAP for a week and got intubated today after eventually failing it Her sputum was purulent and has gram positive on Gstain Notes reviewed Temps ok On CPAP, looks comfortable UC 02/22 with VRE, but UA ok Repeat UA with mild pyuria, UC pending Sputum with pansensitive PSAE WBC normal CT A/P no intraabdominal pathology Has diarrhea Antibiotics Current Medications Azactam Flagyl Cubicin Medications (Trade) Dose Ordered Sig/Celine Route Start Time Stop Time Status Last Admin (NS Flush) 2 ml UNSCH PRN IV FLUSH 02/04/17 13:15 02/21/17 09:46 (NS Flush) 2 ml BID IV FLUSH 02/04/17 21:00 02/26/17 19:56 (Duoneb Neb) 1 ampule Q4HR NEB PRN INH 02/04/17 14:00 02/24/17 16:24 (Peridex 0.12% Liq) 15 ml BID@08,20 MT 02/04/17 20:00 02/26/17 19:56 Miscellaneous Information 1 Q361D XX 02/04/17 13:15 (Chlorhexidine 2% Cloth) 3 pack Taper DAILY@04 TOP 02/05/17 04:00 02/01/18 03:59 02/27/17 04:00 (Chlorhexidine 2% Cloth) 3 pack UNSCH PRN TOP 02/04/17 13:15 (Trandate Inj) 10 mg Q2HR PRN IV PUSH 02/04/17 13:30 Potassium Chloride 100 ml @ 50 mls/hr Q2H PRN IV 02/06/17 16:00 Potassium Chloride 100 ml @ 50 mls/hr Q2H PRN IV 02/06/17 16:00 02/19/17 08:48 (K-Lyte Cl Eff) 50 meq UNSCH PRN PO 02/06/17 16:00 02/21/17 09:48 Potassium Chloride 100 ml @ 25 mls/hr UNSCH PRN IV 02/06/17 16:00 Potassium Chloride 100 ml @ 50 mls/hr Q2H PRN IV 02/06/17 16:00 Magnesium Sulfate 4 gm/Sodium Chloride 100 ml @ 50 mls/hr UNSCH PRN IV 02/06/17 16:00 (Mag-Ox) 800 mg UNSCH PRN PO 02/06/17 16:00 02/07/17 12:20 Magnesium Sulfate 2 gm/Sodium Chloride 100 ml @ 50 mls/hr UNSCH PRN IV 02/06/17 16:00 (K-Phos) 2,000 mg Q4H PRN PO 02/06/17 16:00 Sodium Phosphate 30 mmol/Sodium Chloride 250 ml @ 42 mls/hr UNSCH PRN IV 02/06/17 16:00 02/08/17 08:46 (K-Phos) 2,000 mg UNSCH PRN PO/TUBE 02/06/17 16:00 Potassium Phosphate 30 mmol/ Sodium Chloride 260 ml @ 42 mls/hr UNSCH PRN IV 02/06/17 16:00 02/11/17 14:36 (Tylenol 650 Mg/ 20 ml Liq) 650 mg Q6H PRN PO 02/09/17 15:30 02/25/17 15:41 (Brethine Inj) 1 mg UNSCH PRN SQ 02/16/17 11:15 (Melatonin) 5 mg HS PO 02/17/17 21:00 02/26/17 19:57 (Xanax) 0.5 mg Q6H PRN PO 02/17/17 18:45 02/26/17 19:57 (Pepcid) 20 mg DAILY NG 02/19/17 09:00 02/26/17 09:05 Potassium Chloride 100 ml @ 25 mls/hr UNSCH PRN IV 02/19/17 09:15 (KCl Powder) 40 meq UNSCH PRN PO 02/19/17 09:15 02/19/17 09:31 (Heparin Inj) 5,000 units Q12HR SQ 02/21/17 09:00 02/26/17 19:57 (D50w (Vial) Inj) 50 ml UNSCH PRN IV PUSH 02/21/17 15:30 (Glucagon Inj) 1 mg UNSCH PRN OTHER 02/21/17 15:30 (NovoLIN R SUPPLEMENTAL SCALE) 1 Q6H SQ 02/21/17 16:00 02/27/17 05:52 Sodium Chloride 1,000 ml @ 75 mls/hr [id number] IV 02/22/17 10:30 02/26/17 21:59 Daptomycin 300 mg/ Sodium Chloride 100 ml @ 200 mls/hr Q24H IV 02/24/17 16:00 02/26/17 16:36 (Flagyl) 500 mg Q8HR PO 02/26/17 14:00 02/27/17 05:39 (Claritin) 10 mg DAILY PO 02/26/17 15:45 02/26/17 16:06 (Levaquin) 750 mg DAILY PO 02/27/17 09:00 03/06/17 08:59 UNV Lines PIV Past Medical History Pneumonia Hyponatremia chronic Esophageal stricture with previous notation. Failure to thrive with progressive weight loss. Recurrent pneumonia. Past Surgical History Surgery for carcinoma colon. Allergies: Coded Allergies: Penicillins (Verified Allergy, Unknown, 02/04/17) Objective . Vital Signs Date Time Temp Pulse Resp B/P (MAP) Pulse Ox O2 Delivery O2 Flow Rate FiO2 02/27/17 07:45 100 30 02/27/17 06:00 71 02/27/17 04:39 98 30 02/27/17 04:00 98.9 84 35 119/64 (82) 99 02/27/17 04:00 84 02/27/17 04:00 30 02/27/17 02:00 77 02/27/17 01:02 100 30 02/27/17 00:00 98.9 86 29 115/55 (75) 98 02/27/17 00:00 86 02/27/17 00:00 30 02/26/17 22:40 98 30 02/26/17 22:00 75 02/26/17 21:23 100 30 02/26/17 20:00 99.0 83 29 115/58 (77) 98 02/26/17 20:00 30 02/26/17 20:00 83 02/26/17 18:00 85 02/26/17 16:00 35 02/26/17 16:00 95 02/26/17 16:00 99.2 95 33 117/59 (78) 98 02/26/17 15:51 100 30 02/26/17 14:00 76 02/26/17 13:05 100 30 02/26/17 12:00 78 02/26/17 12:00 98.7 78 26 117/57 (77) 100 02/26/17 12:00 35 02/26/17 10:00 78 . Laboratory Tests Test 02/27/17 05:56 White Blood Count 5.0 TH/MM3 Red Blood Count 2.87 MIL/MM3 Hemoglobin 8.6 GM/DL Hematocrit 25.5 % Mean Corpuscular Volume 88.8 FL Mean Corpuscular Hemoglobin 30.0 PG Mean Corpuscular Hemoglobin Concent 33.8 % Red Cell Distribution Width 17.2 % Platelet Count 116 TH/MM3 Mean Platelet Volume 8.3 FL Laboratory Tests Test 02/27/17 05:56 Blood Urea Nitrogen 24 MG/DL Creatinine 0.39 MG/DL Random Glucose 158 MG/DL Total Protein 4.1 GM/DL Calcium Level 7.2 MG/DL Sodium Level 145 MEQ/L Potassium Level 2.9 MEQ/L Chloride Level 114 MEQ/L Carbon Dioxide Level 19.7 MEQ/L Anion Gap 11 MEQ/L Estimat Glomerular Filtration Rate 162 ML/MIN Protein Corrected Calcium 8.9 MG/DL Microbiology Date/Time Source Procedure Growth Status 02/24/17 14:27 Sputum Endotracheal Gram Stain - Final Complete 02/24/17 14:27 Sputum Culture - Final Pseudomonas Aeruginosa Complete 02/25/17 18:37 Urine Catheterized Urine Urine Culture - Preliminary RESULTS PENDING Resulted Imaging Abdomen/Pelvis CT 02/23/17 0000 Signed Impressions: Service Date/Time: Thursday, February 23, 2017 22:14 - CONCLUSION: 1. Small amount of ascites, similar to the prior study. 2. Prominent diffuse superficial soft tissue edema. 3. Gastrostomy tube in place. 4. Cholelithiasis. Gallbladder collapsed. 5. Bilateral lower lobe atelectasis/consolidation and bilateral pleural effusions. 6. No evidence of the previously noted possible rectal mass. There is intraluminal contrast in this region. Mac Werner MD Chest X-Ray 02/22/17 0000 Signed Impressions: Service Date/Time: Wednesday, February 22, 2017 08:10 - CONCLUSION: Decreasing parenchymal changes left base. Tracheostomy tube in good position. Gregorio Jacob MD FACR Chest X-Ray 02/22/17 0000 Signed Impressions: Service Date/Time: Wednesday, February 22, 2017 08:10 - CONCLUSION: Decreasing parenchymal changes left base. Tracheostomy tube in good position. Gregorio Jacob MD FACR Abdomen/Pelvis CT 02/14/17 0000 Signed Impressions: Service Date/Time: Tuesday, February 14, 2017 23:14 - CONCLUSION: 1. Nonspecific small ascites with bilateral pleural effusions and body wall edema/anasarca. No abscess demonstrated. 2. Possible mass of the lower rectum and please correlate clinically. 3. Gastric feeding tube with tip in the lower body. 4. Sigmoid colon diverticulosis without perceptible acute inflammatory changes. 5. Cholelithiasis without evidence of cholecystitis or biliary obstruction. Phan Lomas MD Gastrostomy Tube Placement 02/05/17 0000 Signed Impressions: Service Date/Time: January 16:47 - CONCLUSION: Uncomplicated gastrostomy tube placement as above. Jorje Josue MD Lower Extremity Ultrasound 02/04/17 0000 Signed Impressions: Service Date/Time: Saturday, February 04, 2017 21:13 - CONCLUSION: 1. No evidence of deep venous thrombosis within the lower extremities. 2. Popliteal cyst on the left measuring 2.2 x 1.5 x 0.9 cm. Julian Mcmahan MD Head CT 02/04/17 0000 Signed Impressions: Service Date/Time: Saturday, February 04, 2017 17:50 - CONCLUSION: 1. No acute intracranial abnormality. 2. Tiny fluid level within the right maxillary sinus. Julian Mcmahan MD CT Angiography 02/04/17 0000 Signed Impressions: Service Date/Time: Saturday, February 04, 2017 17:54 - CONCLUSION: 1. No evidence of pulmonary embolism. 2. Bibasilar alveolar consolidations as well as scattered perihilar patchy opacities suggestive of probable pneumonia. Clinical correlation is recommended. 3. 1.7 cm right thyroid nodule. Julian Mcmahan MD Abdomen X-Ray 02/04/17 0000 Signed Impressions: Service Date/Time: January 05:52 - CONCLUSION: Interval placement of nasogastric tube with the tip in the left mainstem bronchus. Caesar Ramos MD Physical Exam GENERAL: Awake and alert, NAD, on CPAP SKIN: No jaundice, rashes, or lesions. Skin temperature appropriate. Not diaphoretic. EYES: Pupils equal and round and reactive. Extraocular motions intact. No scleral icterus. No injection or drainage. Fundi not examined. ENT: Nose without bleeding or purulent drainage. Throat without visible erythema, exudates, masses, or lesions. NECK: Trach site ok CARDIOVASCULAR: Regular rate and rhythm without murmurs, gallops, or rubs. RESPIRATORY/CHEST: Symmetric, unlabored respirations. Breath sounds equal bilaterally. No wheezes, rales, or rhonchi. GASTROINTESTINAL: Abdomen soft, not distended, (+) BS, with mild tenderness, no guarding or rebound MUSCULOSKELETAL: Extremities without clubbing, cyanosis, or edema. No calf tenderness. No mottling or clubbing. PSYCHIATRIC: Calm and cooperative : Cabrera in place, urine ok LINE: No evidence of infection Assessment & Plan Remarks PNA, has PSAE in C/S Acute VDRF - recurrent intubation - failure to wean - S/P trach 02/16 Diarrhea, abx associated - C.diff negative Rectal mass, h/o cancer - pt refusing colonoscopy - last CT no mass seen on imaging Abdominal pain, diffuse - improved Leukocytosis, better Profound malnourishment, hypoalbuminemia New fever, sepsis / source, better (+) VRE in UC, but UA ok - now with urinary retention PLAN Follow new C/S Change Azactam to Levaquin Continue Cubicin Continue Flagyl, change to po Monitor temps Monitor progress Will deescalate Abx on C/S available Weaning per [facility] Mary Haro MD Feb 27, 2017 08:54
[2017-02-27] MEDS ORDERED: LEVOFLOXACIN 750 MG TAB PO SCH (09:00)
[2017-02-27] MEDS: SODIUM CHLORIDE 0.9% FLUSH 10 ML FLUSH IV FLUSH SCH (09:00)
[2017-02-27] MEDS: HEPARIN SODIUM - SQ 10,000 UNITS/ML VIAL SQ SCH (09:01)
[2017-02-27] MEDS: FAMOTIDINE 20 MG TAB NG SCH (09:01)
[2017-02-27] MEDS: LORATADINE 10 MG TAB PO SCH (09:02)
--- NOTE | 2017-02-27 09:51 | HHI.CCPN ---
Subjective Remarks/Hospital Course 02/04: 71-year-old female with a medical history significant for colon cancer in 2003 for which she underwent partial colon resection and chemotherapy, esophageal stricture with significant weight loss due to poor by mouth intake for which she was hospitalized in [place] in November 2016 for 2 weeks treated for pneumonia and subsequently evaluated for dysphagia and was found to have a sufficient stricture for which she was transferred to [facility] in [place] and underwent esophageal dilatation and was subsequently discharged 2 weeks later on a pured diet. Patient moved to [place] with her granddaughter and a few beats VAC was admitted to [facility] for worsening shortness of breath and was diagnosed with a pneumonia, hyponatremia. She was treated with antibiotics and subsequently discharged home however the following day had to be readmitted at [facility] for unresolved shortness of breath where she was hospitalized for a week and subsequently discharged to long term 3 days prior to this admission. Patient's by mouth intake has been poor since her discharge 3 days back according to her granddaughter as the pured diet at the long term is to take. Patient was found to have altered mental status today and was found slumped to one side with poor respirations. EMS was called and patient was noted to have O2 sats in the 60s. She was transported to the emergency room where she was placed on BiPAP for respiratory distress with hypoxic respiratory failure. She was also noted to be hypertensive on arrival with systolic blood pressure in the 200s. Patient was also found to have a sodium of 118. I was contacted by ER physician and accepted patient for admission to the ICU. When I evaluated the patient in the ER she was on BiPAP with full facemask. History was obtained by discussion with patient's granddaughter was at the bedside. Patient was much more awake at this time and trying to communicate however in view of BiPAP requirement was difficult to communicate with. She denied any chest pain at the time. Patient has chronic diarrhea since her colon surgery in 2003. Per the granddaughter she was doing well till about 3 months ago when she started having significant weight loss and poor by mouth intake possibly related to esophageal stricture and the fact that she was taking care of her sick family member at home. She has been advised a PEG tube per the granddaughter because of her poor nutritional status and poor by mouth intake. She has had problems with hyponatremia off and on for a while. Patient's granddaughter is very concerned about her poor nutritional status. 02/05: Tolerating nasal cannula. Underwent PEG tube placement by IR today. Sodium 122. 02/06 No events overnight. s/p PEG tube placement yesterday. Sodium level 131 this morning 02/07 No events overnight. On 50% VM with good sats. 02/08 No events overnight. Afebrile . Off BIPAP. 02/09 Patient is on BIPAP 02/03 with 45% FIO2> Afebrile. 02/10 Patient was intubated early this morning for acute hypercapnic resp acidosis. Afebrile. 02/11 No events overnight. Patient remains intubated. Afebrile. 02/12 Patient remains intubated and on Precedex drip for sedation. Afebrile. 02/13 Patient was extubated yesterday and reintubated late afternoon for acute resp acidosis. afebrile. 02/14: remains intubated. appears very weak. long conversation with granddaughter and medical decision-maker at bedside. likely will require tracheostomy given repeat re-intubations and chronic debilitation. granddaughter requests we wait until thursday or thursday, and requests it be done in the OR and not at bedside. 02/15: wake and more alert. however, only tolerated 10 minutes of CPAP before becoming tachypneic and failing. gen surg consulted for trach: family requests OR trach due to concerns over infection risk at bedside. I counseled patient's family that there was no increased risk of infection, and the trachea is inherently an unsterile environment with endotracheal tube in place, but family insists on OR trach. hypernatremia slightly worse despite increasing free water. 02/16: still awake and alert. failed CPAP again today. plan for trach today. 02/17: s/p trach yesterday. doing well. still failing CPAP for weakness and tachypnea. needs LTAC. hyponatremia and hypokalemia: kcl replacement and holding free water. 02/18: sodium improving. doing well. needs aggressive PT. 02/19 No events overnight. On ventilator via trach. Afebrile. 02/20 No events overnight. For Colonoscopy today. Afebrile. 02/21 Patient refused colonoscopy yesterday. Tolerated TP's during day and placed on CPAP overnight. Afebrile. 02/22 Patient went into Afib with RVR overnight given Lopressor 5mg IV x1 and Mag sulfate. T:103 this morning 02/23: Remains on mechanical ventilation via tracheostomy. On tube feeds via PEG. No melena or rectal bleeding. Awaiting repeat CBC for hemoglobin 7 on a.m. labs 02/24: Awake and alert. On mechanical ventilation via tracheostomy. Transfuse 1 unit PRBCs yesterday. Hemoglobin 8.2 this morning. 02/25: Awake and alert. On C Pap trial via tracheostomy. 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 02/26: no improvements. remains weak. has CAUTI and VAP, on abx therapy. awaiting bed at [facility]. 02/27: no significant change. still fails CPAP trials. hypokalemic this AM. Objective Vital Signs Date Time Temp Pulse Resp B/P (MAP) Pulse Ox O2 Delivery O2 Flow Rate FiO2 02/27/17 07:45 100 30 02/27/17 06:00 71 02/27/17 04:00 98.9 35 119/64 (82) 02/24/17 16:45 T-piece Intake and Output 02/27/17 02/27/17 02/28/17 08:00 16:00 00:00 Intake Total 1306 ml Output Total 550 ml Balance 756 ml Result Diagram: 02/27/17 0556 02/27/17 0556 Other Results Microbiology Date/Time Source Procedure Growth Status 02/24/17 14:27 Sputum Endotracheal Gram Stain - Final Complete 02/24/17 14:27 Sputum Culture - Final Pseudomonas Aeruginosa Complete 02/25/17 18:37 Urine Catheterized Urine Urine Culture - Final NO GROWTH IN 48 HOURS. Complete Imaging Last Impressions Chest X-Ray 02/19/17 0000 Signed Impressions: Service Date/Time: January 08:52 - CONCLUSION: 1. Interval improvement in bilateral lower lobe infiltrates and improving left sided effusion as detailed above. 2. Interval removal of the endotracheal tube with placement of a tracheostomy. Tip is appropriately positioned at the clavicular head. Nura Cook MD Abdomen/Pelvis CT 02/14/17 0000 Signed Impressions: Service Date/Time: Tuesday, February 14, 2017 23:14 - CONCLUSION: 1. Nonspecific small ascites with bilateral pleural effusions and body wall edema/anasarca. No abscess demonstrated. 2. Possible mass of the lower rectum and please correlate clinically. 3. Gastric feeding tube with tip in the lower body. 4. Sigmoid colon diverticulosis without perceptible acute inflammatory changes. 5. Cholelithiasis without evidence of cholecystitis or biliary obstruction. Phan Lomas MD Gastrostomy Tube Placement 02/05/17 0000 Signed Impressions: Service Date/Time: January 16:47 - CONCLUSION: Uncomplicated gastrostomy tube placement as above. Jorje Josue MD Lower Extremity Ultrasound 02/04/17 0000 Signed Impressions: Service Date/Time: Saturday, February 04, 2017 21:13 - CONCLUSION: 1. No evidence of deep venous thrombosis within the lower extremities. 2. Popliteal cyst on the left measuring 2.2 x 1.5 x 0.9 cm. Julian Mcmahan MD Head CT 02/04/17 0000 Signed Impressions: Service Date/Time: Saturday, February 04, 2017 17:50 - CONCLUSION: 1. No acute intracranial abnormality. 2. Tiny fluid level within the right maxillary sinus. Julian Mcmahan MD CT Angiography 02/04/17 0000 Signed Impressions: Service Date/Time: Saturday, February 04, 2017 17:54 - CONCLUSION: 1. No evidence of pulmonary embolism. 2. Bibasilar alveolar consolidations as well as scattered perihilar patchy opacities suggestive of probable pneumonia. Clinical correlation is recommended. 3. 1.7 cm right thyroid nodule. Julian Mcmahan MD Abdomen X-Ray 02/04/17 0000 Signed Impressions: Service Date/Time: January 05:52 - CONCLUSION: Interval placement of nasogastric tube with the tip in the left mainstem bronchus. Caesar Ramos MD Objective Remarks GENERAL: frail elderly female, lying in bed, trach in place SKIN: Warm and dry. HEAD: Normocephalic. EYES: No scleral icterus. No injection or drainage. NECK: trachea midline. No JVD. trach in place. CARDIOVASCULAR: normal rate, regular rhythm. RESPIRATORY: On mechanical ventilation via tracheostomy. GASTROINTESTINAL: Abdomen soft, non-tender, nondistended. no guarding. MUSCULOSKELETAL: No cyanosis, or edema. Neuro: Awake alert oriented 3, follows commands. moves all extremities. A/P Assessment and Plan Assessment: 71yF with at least a 3 month chronic course of failure to thrive and weight loss, esophageal stricture, and now recurrent hypoxic and hypercarbic respiratory failure requiring multiple intubations. She needs aggressive pulmonary rehab in an LTAC type facility. Plan: Neuro: Acute metabolic encephalopathy Anxiety Insomnia - Monitor neuro status. On no sedation family have asked that we avoid fentanyl, versed, and propofol because in their past experience, she has reacted poorly to these. they request Precedex only. Xanax to 0.5mg po q6h prn melatonin 5mg po qHS for sleep CV: New onset Afib with RVR Monitor HR and BP keep MAP>65mmHg Check EKG, Ck/trop, 2D echo to eval LV function Pulm: Recurrent acute hypercarbic and hypoxic respiratory failure - chronic s/p trach. likely secondary to deconditioning and weakness. likely also large component of silent or overt aspiration and inability to control secretions. Continue with vent support keep sat >92% Bronchodilators. ICU vent bundle. CT chest with no evidence of PE and shows bibasilar infiltrates concerning for recurrent aspiration pneumonia Pulm is following. continue daily SBTs. needs LTAC. s/p trach 02/[address] Chaudhry GI/liver: Failure to thrive Hypernatremia- resolved. Free water deficit- resolved. Chronic diarrhea History of esophageal stricture status post recent esophageal dilation History of colon cancer Acute protein calorie malnutrition - severe hyponatremia- improving. s/p PEG tube placement by IR 02/05 On Tube feeds(Jevity 1.5 @ 40ml/hr) GI is following for ? rectal mass on CT abdomen. Patient refused colonoscopy. repeat CT on 02/23 did not show rectal mass. d/c mivf restart free water 100mL po q6h. Renal/: Acute intravascular volume overload- resolved. Metabolic alkalosis- resolved. Monitor renal function, I/O's, electrolytes replacement per protocol. ID: Healthcare Associated Pneumonia- VRE UTI s/p full course abx ( Cefepime, Azithromycin). On Aztreonam, vanc, micafungin per ID. daptomycin started on 02/24 for VRE in urine. F/u panculture(( Blood, sputum, UA with cx if indicated) for worsening leukocytosis and new onset fever -C-diff PCR is negative on 02/21 and 02/10 ID following. Endocrine: Hyperglycemia of Critical Illness SSI for glycemic control Heme-onc: Anemia secondary to chronic disease Monitor CBC, transfuse to keep Hgb greater than 8gm% Prophylaxis: Pepcid/SCDs. heparin SQ( H/H stable and no signs of bleeding) Palliative care is following Awaiting placement in LTAC facility Waldo Luke MD Feb 27, 2017 09:51
[2017-02-27] MEDS ORDERED: POTASSIUM CHLORIDE 25 MEQ EFFERVESCENT TAB PO ONE (10:00)
[2017-02-27] MEDS ORDERED: FREE WATER G-TUBE SCH (12:00)
--- NOTE | 2017-02-27 12:54 | PD.WCN.NOT ---
Wound Consult Description: Consult placed for PRESSURE ULCER to buttock per Dr Luke Communicated with: BARBARA Narvaez Patient Call placed to call center to [facility] flat surfacer for dressing change orders Recommendation: Cleanse sacral wound with Normal Saline and gauze. Skin prep periwound with Cavilon barrier film and allow to dry before applying new dressing. Apply Santyl daily (if ordered) and cover with a bordered gauze dressing or gauze secured with tape. Reposition patient every 2 hours from left to right and PRN for comfort and/or therapy. Please obtain Gabriela pump for current mattress for alternating pressure relief. If not available patient will need an alternating pressure relief mattress/bed. Use only ultrasorbs for moisture and incontinence. 1 or 2 staggered ultrasorbs should be used with the Gabriela beds. *Please do not use cloth pads underneath patient with Gabriela bed, it inhibits the function of the mattress. Additional Information: Patient seen on [facility] for wound consult. Patient was positioned to her right side for assessment. Patient is lying on a Gabriela bed and noted with one soiled cloth pad and another clean cloth pad with 2 ultrasorbs underneath her. There is another cloth pad noted underneath patient left arm for obvious signs of weeping. Patient sacrum presents with a full thickness wound measuring 4.4cm x 3cm x ~0.3cm of ~50% pink tissue surrounding ~30% black tissue in the center of wound bed, and ~20% fascia noted at 11 o'clock with sharp defined wound margins surrounding the fascia. Wound was cleansed with NS and gauze. There is minimal bleeding noted to partial thickness skin loss tissue surrounding the black tissue within the wound bed. Wound edges are mixed with sharp defined wound margins and jagged wound margins indicating a mixed etiology of pressure, given location over bony prominence, and moisture due to incontinence of stool that was witnessed by ad copy writer during assessment. Recommended to apply foam dressing to sacral Stage IV pressure injury at this time until orders are obtained from physician. Recommend to cleanse wound daily with NORMAL SALINE only. Apply Santyl daily and cover with a dry dressing such as bordered gauze or gauze secured with tape once ordered by physician if in agreement with recommendation. Also recommend to reposition patient every 2 hours and PRN for comfort from left to right sides only limiting time spent on back for therapy only. Also recommend to obtain pump for Gabriela bed or obtain an alternating pressure relief support surface. Ruma Mancini [facility] Feb 27, 2017 12:54
[2017-02-27] MEDS ORDERED: COLLAGENASE OINT 30 GM TUBE TOPICAL SCH (13:00)
[2017-02-27] MEDS: POTASSIUM CHLOR 20 MEQ PREMIX 100 ML IV PRN (16:11)
[2017-02-27] MEDS: POTASSIUM PHOSPHATE INJ 30 MMOL in SODIUM CHLOR 0.9% 250 ML INJ 250 ML IV PRN (16:11)
[2017-02-27] MEDS: DAPTOmycin INJ 300 MG in SODIUM CHLORIDE 0.9% INJ 100 ML IV SCH (16:11)
--- NOTE | 2017-02-27 16:45 | HHI.PR ---
Subjective Remarks 71 YOWF with VDRF,Bibasilar infilt gets anxious On Trach collar, comfortable Tolerates TF Sp Pseudomonas GD at BS Objective Vital Signs Vital Signs Date Time Temp Pulse Resp B/P (MAP) Pulse Ox O2 Delivery O2 Flow Rate FiO2 02/27/17 12:31 100 30 02/27/17 08:00 80 02/27/17 08:00 30 02/27/17 07:45 100 30 02/27/17 06:00 71 02/27/17 04:39 98 30 02/27/17 04:00 98.9 84 35 119/64 (82) 99 02/27/17 04:00 84 02/27/17 04:00 30 02/27/17 02:00 77 02/27/17 01:02 100 30 02/27/17 00:00 98.9 86 29 115/55 (75) 98 02/27/17 00:00 86 02/27/17 00:00 30 02/26/17 22:40 98 30 02/26/17 22:00 75 02/26/17 21:23 100 30 02/26/17 20:00 99.0 83 29 115/58 (77) 98 02/26/17 20:00 30 02/26/17 20:00 83 02/26/17 18:00 85 I/O 02/26/17 02/26/17 02/26/17 02/27/17 02/27/17 02/27/17 07:00 15:00 23:00 07:00 15:00 23:00 Intake Total 1492 ml 1100 ml 1852 ml 1306 ml Output Total 470 ml 600 ml 550 ml Balance 1022 ml 1100 ml 1252 ml 756 ml IV Total 980 ml 1100 ml 1200 ml 766 ml Tube Feeding 512 ml 532 ml 540 ml Other 120 ml Output Urine Total 470 ml 600 ml 550 ml # Bowel Movements 3 2 Result Diagram: 02/27/1756 02/27/17 0556 Objective Remarks GENERAL: Frail elderly female, on Vent SKIN: Warm and dry. HEAD: Normocephalic. EYES: No scleral icterus. No injection or drainage. NECK: Supple, trachea midline. No JVD or lymphadenopathy. CARDIOVASCULAR: Regular rate and rhythm without murmurs, gallops, or rubs. RESPIRATORY: Breath sounds equal bilaterally. No accessory muscle use. GASTROINTESTINAL: Abdomen soft, non-tender, nondistended. MUSCULOSKELETAL: No cyanosis, or edema. BACK: Nontender without obvious deformity. No CVA tenderness. A/P Assessment and Plan VDRF, s/p Trach 02/16 Bibasilar infilterates Hypotension Anxiety H/O Ca colon Weight loss PLAN: Cont Abx Azactam, Cubicin,Flagyl per ID Xanax 0.5 mg q 6 hrs Trach care Cont Trach collar Tube feeding. DC Plans for [facility] Yusef Hernandez MD Feb 27, 2017 16:45
[2017-02-27] MEDS: ALPRAZolam 0.5 MG TAB PO PRN (16:55)
[2017-02-27] MEDS ORDERED: ONDANSETRON HCL 4 MG/2 ML VIAL IV PUSH PRN (18:00)
--- NOTE | 2017-02-27 19:03 | HHI.DS ---
Discharge Summary Admission Date Feb 04, 2017 at 13:00 Discharge Date: Feb 27, 2017 Admitting Diagnosis respiratory distress/pneumonia/severe hyponatremia/sepsis Brief History 71-year-old female with a medical history significant for colon cancer in 2003 for which she underwent partial colon resection and chemotherapy, esophageal stricture with significant weight loss due to poor by mouth intake for which she was hospitalized in [place] in November 2016 for 2 weeks treated for pneumonia and subsequently evaluated for dysphagia and was found to have a sufficient stricture for which she was transferred to [facility] in [place] and underwent esophageal dilatation and was subsequently discharged 2 weeks later on a pured diet. Patient moved to [place] with her granddaughter and a few beats VAC was admitted to [facility] for worsening shortness of breath and was diagnosed with a pneumonia, hyponatremia. She was treated with antibiotics and subsequently discharged home however the following day had to be readmitted at [facility] for unresolved shortness of breath where she was hospitalized for a week and subsequently discharged to detention 3 days prior to this admission. Patient's by mouth intake has been poor since her discharge 3 days back according to her granddaughter as the pured diet at the detention is to take. Patient was found to have altered mental status today and was found slumped to one side with poor respirations. EMS was called and patient was noted to have O2 sats in the 60s. She was transported to the emergency room where she was placed on BiPAP for respiratory distress with hypoxic respiratory failure. She was also noted to be hypertensive on arrival with systolic blood pressure in the 200s. Patient was also found to have a sodium of 118. I was contacted by ER physician and accepted patient for admission to the ICU. When I evaluated the patient in the ER she was on BiPAP with full facemask. History was obtained by discussion with patient's granddaughter was at the bedside. Patient was much more awake at this time and trying to communicate however in view of BiPAP requirement was difficult to communicate with. She denied any chest pain at the time. Patient has chronic diarrhea since her colon surgery in 2003. Per the granddaughter she was doing well till about 3 months ago when she started having significant weight loss and poor by mouth intake possibly related to esophageal stricture and the fact that she was taking care of her sick family member at home. She has been advised a PEG tube per the granddaughter because of her poor nutritional status and poor by mouth intake. She has had problems with hyponatremia off and on for a while. Patient's granddaughter is very concerned about her poor nutritional status. 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 Past Surgical History H/o left THR 2014 partial colectomy 2003 for colon Cancer Social History Tobacco Use: No Allergies-Medications (Allergen,Severity, Reaction): Coded Allergies: Penicillins (Verified Allergy, Unknown, 02/04/17) Review of Systems ROS Limitations: Altered Mental Status CBC/BMP: 02/27/17 0556 02/27/17 0556 Significant Findings Laboratory Tests Test 02/25/17 18:37 02/27/17 05:56 Urine Turbidity HAZY (CLEAR) Urine Protein 30 mg/dL (NEG-TRACE) Urine Occult Blood TRACE (NEG) Urine Leukocyte Esterase SMALL (NEG) Urine RBC 4 /hpf (0-3) Urine WBC 12 /hpf (0-5) Urine Bacteria RARE /hpf (NONE) Urine Mucus FEW /lpf (OCC) Red Blood Count 2.87 MIL/MM3 (4.00-5.30) Hemoglobin 8.6 GM/DL (11.6-15.3) Hematocrit 25.5 % (35.0-46.0) Platelet Count 116 TH/MM3 (150-450) Blood Urea Nitrogen 24 MG/DL (7-18) Creatinine 0.39 MG/DL (0.50-1.00) Random Glucose 158 MG/DL (74-106) Total Protein 4.1 GM/DL (6.4-8.2) Calcium Level 7.2 MG/DL (8.5-10.1) Potassium Level 2.9 MEQ/L (3.5-5.1) Chloride Level 114 MEQ/L (98-107) Carbon Dioxide Level 19.7 MEQ/L (21.0-32.0) Hospital Course 02/04: 71-year-old female with a medical history significant for colon cancer in 2003 for which she underwent partial colon resection and chemotherapy, esophageal stricture with significant weight loss due to poor by mouth intake for which she was hospitalized in [place] in November 2016 for 2 weeks treated for pneumonia and subsequently evaluated for dysphagia and was found to have a sufficient stricture for which she was transferred to [facility] in [place] and underwent esophageal dilatation and was subsequently discharged 2 weeks later on a pured diet. Patient moved to [place] with her granddaughter and a few beats VAC was admitted to [facility] for worsening shortness of breath and was diagnosed with a pneumonia, hyponatremia. She was treated with antibiotics and subsequently discharged home however the following day had to be readmitted at [facility] for unresolved shortness of breath where she was hospitalized for a week and subsequently discharged to detention 3 days prior to this admission. Patient's by mouth intake has been poor since her discharge 3 days back according to her granddaughter as the pured diet at the detention is to take. Patient was found to have altered mental status today and was found slumped to one side with poor respirations. EMS was called and patient was noted to have O2 sats in the 60s. She was transported to the emergency room where she was placed on BiPAP for respiratory distress with hypoxic respiratory failure. She was also noted to be hypertensive on arrival with systolic blood pressure in the 200s. Patient was also found to have a sodium of 118. I was contacted by ER physician and accepted patient for admission to the ICU. When I evaluated the patient in the ER she was on BiPAP with full facemask. History was obtained by discussion with patient's granddaughter was at the bedside. Patient was much more awake at this time and trying to communicate however in view of BiPAP requirement was difficult to communicate with. She denied any chest pain at the time. Patient has chronic diarrhea since her colon surgery in 2003. Per the granddaughter she was doing well till about 3 months ago when she started having significant weight loss and poor by mouth intake possibly related to esophageal stricture and the fact that she was taking care of her sick family member at home. She has been advised a PEG tube per the granddaughter because of her poor nutritional status and poor by mouth intake. She has had problems with hyponatremia off and on for a while. Patient's granddaughter is very concerned about her poor nutritional status. 02/05: Tolerating nasal cannula. Underwent PEG tube placement by IR today. Sodium 122. 02/06 No events overnight. s/p PEG tube placement yesterday. Sodium level 131 this morning 02/07 No events overnight. On 50% VM with good sats. 02/08 No events overnight. Afebrile . Off BIPAP. 02/09 Patient is on BIPAP 02/03 with 45% FIO2> Afebrile. 02/10 Patient was intubated early this morning for acute hypercapnic resp acidosis. Afebrile. 02/11 No events overnight. Patient remains intubated. Afebrile. 02/12 Patient remains intubated and on Precedex drip for sedation. Afebrile. 02/13 Patient was extubated yesterday and reintubated late afternoon for acute resp acidosis. afebrile. 02/14: remains intubated. appears very weak. long conversation with granddaughter and medical decision-maker at bedside. likely will require tracheostomy given repeat re-intubations and chronic debilitation. granddaughter requests we wait until thursday or thursday, and requests it be done in the OR and not at bedside. 02/15: wake and more alert. however, only tolerated 10 minutes of CPAP before becoming tachypneic and failing. gen surg consulted for trach: family requests OR trach due to concerns over infection risk at bedside. I counseled patient's family that there was no increased risk of infection, and the trachea is inherently an unsterile environment with endotracheal tube in place, but family insists on OR trach. hypernatremia slightly worse despite increasing free water. 02/16: still awake and alert. failed CPAP again today. plan for trach today. 02/17: s/p trach yesterday. doing well. still failing CPAP for weakness and tachypnea. needs LTAC. hyponatremia and hypokalemia: kcl replacement and holding free water. 02/18: sodium improving. doing well. needs aggressive PT. 02/19 No events overnight. On ventilator via trach. Afebrile. 02/20 No events overnight. For Colonoscopy today. Afebrile. 02/21 Patient refused colonoscopy yesterday. Tolerated TP's during day and placed on CPAP overnight. Afebrile. 02/22 Patient went into Afib with RVR overnight given Lopressor 5mg IV x1 and Mag sulfate. T:103 this morning 02/23: Remains on mechanical ventilation via tracheostomy. On tube feeds via PEG. No melena or rectal bleeding. Awaiting repeat CBC for hemoglobin 7 on a.m. labs 02/24: Awake and alert. On mechanical ventilation via tracheostomy. Transfuse 1 unit PRBCs yesterday. Hemoglobin 8.2 this morning. 02/25: Awake and alert. On C Pap trial via tracheostomy. 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 02/26: no improvements. remains weak. has CAUTI and VAP, on abx therapy. awaiting bed at [facility]. 02/27: no significant change. still fails CPAP trials. hypokalemic this AM. Patient was accepted at [facility] and left in stable condition. Pt Condition on Discharge: Stable Discharge Disposition: Trnsfr to Other Facility Discharge Instructions DIET: Follow Instructions for: On Tube Feeding Activities you can perform: Regular-No Restrictions Waldo Luke MD Feb 27, 2017 19:03
== END 2017-02-27 17:45 | DRG 4 ==
LOC: NEPE 10:46 → NEDA 13:00 → HIMN 18:15
PROVIDERS: ADMIT Internal Medicine Critical Care Medicine; ATTEND Internal Medicine Critical Care Medicine
PROC: 5A09557 Assistance with Respiratory Ventilation, Greater than 96 Consecutive Hours, Continuous Positive Airway Pressure (ICD-10-PCS; 2017-02-04)
PROC: 0DH63UZ Insertion of Feeding Device into Stomach, Percutaneous Approach (ICD-10-PCS; 2017-02-05)
PROC: 5A1955Z Respiratory Ventilation, Greater than 96 Consecutive Hours (ICD-10-PCS; 2017-02-10)
PROC: 0BH17EZ Insertion of Endotracheal Airway into Trachea, Via Natural or Artificial Opening (ICD-10-PCS; 2017-02-10)
PROC: 30233N1 Transfusion of Nonautologous Red Blood Cells into Peripheral Vein, Percutaneous Approach (ICD-10-PCS; 2017-02-13)
PROC: 0B113F4 Bypass Trachea to Cutaneous with Tracheostomy Device, Percutaneous Approach (ICD-10-PCS; principal; 2017-02-16)
PROC: 0BJ08ZZ Inspection of Tracheobronchial Tree, Via Natural or Artificial Opening Endoscopic (ICD-10-PCS; 2017-02-16)
PROC: 0T9B70Z Drainage of Bladder with Drainage Device, Via Natural or Artificial Opening (ICD-10-PCS; 2017-02-19)
DX: A41.9 Sepsis, unspecified organism (principal); J69.0 Pneumonitis due to inhalation of food and vomit; E43 Unspecified severe protein-calorie malnutrition; G93.41 Metabolic encephalopathy; J18.9 Pneumonia, unspecified organism; J95.851 Ventilator associated pneumonia; E87.4 Mixed disorder of acid-base balance; E87.0 Hyperosmolality and hypernatremia; J96.02 Acute respiratory failure with hypercapnia; J96.01 Acute respiratory failure with hypoxia; E22.2 Syndrome of inappropriate secretion of antidiuretic hormone; J98.11 Atelectasis; R18.8 Other ascites; N39.0 Urinary tract infection, site not specified; T83.511A Infection and inflammatory reaction due to indwelling urethral catheter, initial encounter; K22.2 Esophageal obstruction; D69.6 Thrombocytopenia, unspecified; I11.0 Hypertensive heart disease with heart failure; I50.9 Heart failure, unspecified; D63.8 Anemia in other chronic diseases classified elsewhere; F51.05 Insomnia due to other mental disorder; K52.9 Noninfective gastroenteritis and colitis, unspecified; K80.20 Calculus of gallbladder without cholecystitis without obstruction; R62.7 Adult failure to thrive; Y95 Nosocomial condition; Z16.21 Resistance to vancomycin; Z85.038 Personal history of other malignant neoplasm of large intestine; Z87.01 Personal history of pneumonia (recurrent); Z90.49 Acquired absence of other specified parts of digestive tract; Z92.21 Personal history of antineoplastic chemotherapy; Z92.3 Personal history of irradiation; Z96.642 Presence of left artificial hip joint; Z51.5 Encounter for palliative care; I48.91 Unspecified atrial fibrillation; F41.9 Anxiety disorder, unspecified; E87.6 Hypokalemia; Y73.1 Therapeutic (nonsurgical) and rehabilitative gastroenterology and urology devices associated with adverse incidents; Y92.239 Unspecified place in hospital as the place of occurrence of the external cause; L89.159 Pressure ulcer of sacral region, unspecified stage; L89.151 Pressure ulcer of sacral region, stage 1
CPT/HCPCS: 31500; 31600; 31624; 36430; 36600; 49440; 70450; 71010; 71275; 74000; 74176; 74177; 76937; 80048; 80053; 80202; 81001; 82378; 82533; 82550; 82805; 82948; 83605; 83735; 83880; 83930; 83935; 84100; 84132; 84134; 84155; 84300; 84443; 84484; 85007; 85014; 85018; 85025; 85027; 85379; 85610; 85730; 86077; 86301; 86403; 86850; 86870; 86900; 86901; 86922; 87040; 87070; 87077; 87086; 87186; 87205; 87493; 87641; 93005; 93306; 93970; 94002; 94003; 94640; 96374; 99152; 99153; A7521; C1769; C1887; C9113; J0131; J0456; J0692; J0878; J1120; J1610; J1644; J1650; J1815; J1940; J1956; J2060; J2248; J2250; J2405; J2920; J3010; J3370; J3475; J3480; J7030; J7040; J7050; J7070; J7512; P9016; P9045; P9047; P9612; Q9963; Q9967